=== PATIENT | female | born 1980 | race African-American/Black ===

== ENCOUNTER → 2016-12-23 | Outpatient (CLI) | payer OTHER ==
[~2016-12-23] MED LIST: APR50 PO; FERR1TAB62 PO; LABE200T24 PO; PANT40TA PO; PHS667 PO
== END | disposition home or self-care (01) ==
LOC: C.PAPS 13:19
PROVIDERS: ATTEND Physician Assistant
DX: Z01.419 Encounter for gynecological examination (general) (routine) without abnormal findings (principal)

== ENCOUNTER → 2017-02-26 | Outpatient (CLI) | payer OTHER ==
--- NOTE | 2017-02-26 14:57 | ECHOCARDIOGRAM REPORT ---
*NOTICE TO RECEIVING [employer] This information is strictly Confidential and protected under [place] law. [place] law prohibits you from making any further disclosure of this information unless further disclosure is expressly permitted by the written consent of the person to whom it pertains or is authorized by law. A general authorization for the release of medical or other information is not sufficient for this purpose. Hospital accepts no responsibility if the information is made available to any other person, INCLUDING THE PATIENT. Interpretation Summary * Name: MARIUM TREJO Study Date: 02/26/2017 01:39 PM BP: 168/90 mmHg * Patient Location: [facility] HR: 72 * : 1980 (M/d/yyyy) Gender: Female Height: 64 in * Age: 36 yrs Ethnicity: AA Weight: 240 lb * Ordering Physician: Christen Galvez * Referring Physician: Christen Galvez * Performed By: Michelle Church * * Reason For Study: MURMUR, HTN * BSA: 2.1 m2 * -- Conclusions -- * There is moderate concentric left ventricular hypertrophy. * Left ventricular systolic function is normal. * Borderline left atrial enlargement. * There is thickening of the left coronary cusp which was not seen on the study from 2012. If endocarditis is suspected, SHEILA can be considered for better characterization. * Otherwise, no change from 2013 Procedure Details * A complete two-dimensional transthoracic echocardiogram was performed (2D, M-mode, Doppler and color flow Doppler). Left Ventricle * The left ventricle is normal in size. * There is moderate concentric left ventricular hypertrophy. * Ejection Fraction = 55-60%. * Left ventricular systolic function is normal. Right Ventricle * The right ventricle is normal in size and function. Atria * Borderline left atrial enlargement. * Right atrial size is normal. Mitral Valve * The mitral valve is grossly normal. * Significant mitral regurgitation is absent. Tricuspid Valve * The tricuspid valve is not well visualized, but is grossly normal. * Significant tricuspid regurgitation is absent. Aortic Valve * The aortic valve is trileaflet. * There is thickening of the left coronary cusp which was not seen on the study from 2012. If endocarditis is suspected, SHEILA can be considered for better characterization. * No hemodynamically significant valvular aortic stenosis. * There is no significant aortic regurgitation. Pericardium/Pleural * Trace pericardial effusion. Great Vessels * Normal inferior vena cava diameter and respiratory variation suggests normal central venous pressure. MMode 2D Measurements and Calculations IVSd 2.0 cm IVSs 2.7 cm LVIDd 4.2 cm LVIDs 2.9 cm LVPWd 1.5 cm LVPWs 1.7 cm IVS/LVPW 1.4 FS 31.0 % EDV(Teich) 77.0 ml ESV(Teich) 31.4 ml EF(Teich) 59.2 % EDV(cubed) 72.2 ml ESV(cubed) 23.7 ml EF(cubed) 67.2 % % IVS thick 35.5 % % LVPW thick 17.2 % LV mass(C)d 312.2 grams LV mass(C)dI 147.7 grams/m\S\2 LV mass(C)s 307.2 grams LV mass(C)sI 145.3 grams/m\S\2 SV(Teich) 45.5 ml SI(Teich) 21.5 ml/m\S\2 SV(cubed) 48.5 ml SI(cubed) 22.9 ml/m\S\2 ACS 1.6 cm LA dimension 4.0 cm asc Aorta Diam 3.7 cm LVOT diam 2.0 cm LVOT area 3.0 cm\S\2 LVAd ap4 38.6 cm\S\2 LVLd ap4 9.6 cm EDV(MOD-sp4) 128.9 ml EDV(sp4-el) 132.4 ml LVAs ap4 20.1 cm\S\2 LVLs ap4 7.9 cm ESV(MOD-sp4) 52.2 ml ESV(sp4-el) 43.5 ml EF(MOD-sp4) 59.5 % EF(sp4-el) 67.2 % LVAd ap2 39.0 cm\S\2 LVLd ap2 9.1 cm EDV(MOD-sp2) 143.1 ml EDV(sp2-el) 142.8 ml LVAs ap2 22.5 cm\S\2 LVLs ap2 7.3 cm ESV(MOD-sp2) 63.0 ml ESV(sp2-el) 58.5 ml EF(MOD-sp2) 56.0 % EF(sp2-el) 59.0 % LVLd %diff -5.48 % EDV(MOD-bp) 139.5 ml LVLs %diff -7.85 % ESV(MOD-bp) 56.8 ml EF(MOD-bp) 59.3 % SV(MOD-sp4) 76.7 ml SI(MOD-sp4) 36.3 ml/m\S\2 SV(MOD-sp2) 80.1 ml SI(MOD-sp2) 37.9 ml/m\S\2 SV(MOD-bp) 82.7 ml SI(MOD-bp) 39.1 ml/m\S\2 SV(sp4-el) 88.9 ml SI(sp4-el) 42.1 ml/m\S\2 SV(sp2-el) 84.3 ml SI(sp2-el) 39.9 ml/m\S\2 Doppler Measurements and Calculations MV E max shira 110.8 cm/sec MV A max shira 89.4 cm/sec MV E/A 1.2 MV dec time 0.31 sec Ao V2 max 193.0 cm/sec Ao max PG 14.9 mmHg Ao max PG (full) 7.5 mmHg LILIANA(V,A) 2.1 cm\S\2 LILIANA(V,D) 2.1 cm\S\2 LV V1 max PG 7.4 mmHg LV V1 max 136.2 cm/sec PA V2 max 104.6 cm/sec PA max PG 4.4 mmHg PI end-d shira 105.9 cm/sec
== END | disposition home or self-care (01) ==
LOC: C.CPL 13:12
PROVIDERS: ATTEND Nurse Practitioner Adult Health
DX: I12.0 Hypertensive chronic kidney disease with stage 5 chronic kidney disease or end stage renal disease (principal); N18.6 End stage renal disease; R01.1 Cardiac murmur, unspecified

== ENCOUNTER → 2017-04-18 | Outpatient (CLI) | payer OTHER ==
[~2017-04-18] MED LIST changes: -FERR1TAB62 PO; +FERR325T PO
[2017-04-18 14:42] LABS: BASO % 0.4 %; BASO ABS # 0.02 K/uL (0-0.2); COMPLETE YES; EOS % 3.5 %; HEMATOCRIT 36.7 % (37-47); IG% 0.2 %; LYMPH % 32.8 %; MEAN CELL VOLUME 100.8 fL (80-100); MEAN CORPUSCULAR HGB CONC 30.8 g/dl (32-36); MEAN PLATELET VOLUME 9.2 fL (7.4-10.4); MONO % 4.9 %; NEUT % 58.2 %; PLATELET COUNT 193 K/uL (130-400); RED BLOOD COUNT 3.64 M/uL (4.2-5.4); WHITE BLOOD COUNT 5.49 K/uL (4.8-10.8)
[2017-04-18 15:27] LABS: ALB/GLOB RATIO 0.9 (0.9-2); ALKALINE PHOSPHATASE 89 U/L (45-117); ALT/SGPT 16 U/L (12-78); AST/SGOT 14 U/L (15-37); BLOOD UREA NITROGEN 35 mg/dl (7-18); BUN/CREATININE RATIO 4.5 (10-20); CALCIUM 8.1 mg/dl (8.5-10.1); CARBON DIOXIDE 27 mmol/L (21-32); CHLORIDE 102 mmol/L (98-107); CHOLESTEROL 141 mg/dl (0-200); CHOLESTEROL/HDL RATIO 2.8; GLUCOSE 107 mg/dl (70-99); HDL CHOLESTEROL 50 mg/dl; LDL CHOLESTEROL CALCULATED 68 mg/dl; POTASSIUM 3.4 mmol/L (3.5-5.1); SODIUM 139 mmol/L (136-145); THYROID STIMULATING HORMONE 0.198 uIu/ml (0.300-4.500); TRIGLYCERIDES 114 mg/dl (0-150); VERY LOW DENSITY LIPOPROT CALC 23 mg/dl
[2017-04-19 07:52] LABS: ESTIMATED AVERAGE GLUCOSE 74 mg/dl; HA1C FLAG Normal (Normal)
--- NOTE | 2017-04-24 11:55 | CODING QUERY MEDICAL NECESSITY ---
CQSUPPORTING DIAGNOSIS NEEDED A supporting diagnosis is required for the test/procedure performed on this patient in order for us to be reimbursed by the patient's insurance. Please provide a supporting diagnosis for the following test/procedure listed below next to the test name along with your signature. *If there is no additional diagnosis for this patient that would support the following test/procedure please document that below next to the test/procedure. Test(s)/Procedure(s) that require a supporting diagnosis: DOS 04/18/17 GLYCATED HEMOGLOBIN TEST Provider Signature: Date: Thank you Ch[facility] Information Management Once completed, please kindly fax back to [phone] For questions please call [phone]
== END | disposition home or self-care (01) ==
LOC: C.LAB 13:29
PROVIDERS: ATTEND Nurse Practitioner Adult Health
DX: Z00.00 Encounter for general adult medical examination without abnormal findings (principal); F41.8 Other specified anxiety disorders; N18.6 End stage renal disease; E55.9 Vitamin D deficiency, unspecified

== ENCOUNTER → 2017-05-28 | Outpatient (CLI) | payer OTHER ==
[2017-05-29 15:45] LABS: MICROSOMAL AB <1 IU/ML (<9); THYROGLOBULIN 31.3 NG/ML (2.8-40.9)
== END | disposition home or self-care (01) ==
LOC: C.LAB 12:23
PROVIDERS: ATTEND Nurse Practitioner Adult Health
DX: R94.6 Abnormal results of thyroid function studies (principal)

== ENCOUNTER 2017-06-15 10:47 | Inpatient (IN) | payer OTHER ==
[~2017-06-15] VITALS: Ht 162.6 cm; Wt 102.5 kg
[2017-06-15] MEDS ORDERED: SODIUM CHLORIDE 0.9% 500ML 500 ML IV STA (11:43)
--- NOTE | 2017-06-15 12:01 | DIAGNOSTIC IMAGING REPORT ---
CHEST ONE VIEW PORTABLE CLINICAL HISTORY: 36 years-old Female presenting with dialysis pt nausea vomiting. TECHNIQUE: Portable upright AP view of the chest was obtained. COMPARISON: 05/24/2015. FINDINGS: Cardiopericardial silhouette remains enlarged. Mild prominence of pulmonary vasculature, unchanged. Lungs and pleural spaces clear. Osseous structures normal. Upper abdomen normal. IMPRESSION: 1. Cardiomegaly and mild vascular prominence could suggest volume overload. No jose pulmonary edema. Electronically signed by: Jordan Cavanaugh M.D. 06/15/2017 12:00 PM Dictated Date/Time: 06/15/2017 11:58 AM
[2017-06-15] MEDS: ONDANSETRON INJ 2 MG/ML 2 ML VIAL IV PRN ×2 (12:17→18:56)
[2017-06-15] MEDS: MoRPHine SULFATE 10 MG/ML CARP/VIAL IV PRN ×2 (12:17→15:29)
[2017-06-15 12:30] LABS: BASO % 0.4 %; BASO ABS # 0.02 K/uL (0-0.2); COMPLETE YES; EOS % 3.1 %; HEMATOCRIT 31.2 % (37-47); IG% 0.2 %; LYMPH % 26.8 %; LYMPH ABS # 1.29 K/uL (1.2-3.4); MEAN CELL VOLUME 96.6 fL (80-100); MEAN CORPUSCULAR HEMOGLOBIN 31.9 pg (25-34); MEAN PLATELET VOLUME 8.6 fL (7.4-10.4); MONO % 4.6 %; NEUT % 64.9 %; PLATELET COUNT 198 K/uL (130-400); RED BLOOD COUNT 3.23 M/uL (4.2-5.4); WHITE BLOOD COUNT 4.81 K/uL (4.8-10.8)
[2017-06-15 12:34] LABS: PARTIAL THROMBOPLASTIN RATIO 1.1; PROTHROMBIN TIME (PATIENT) 10.9 SECONDS (9.0-12.0)
[2017-06-15 12:57] LABS: BUN/CREATININE RATIO 6.2 (10-20); CALCIUM 7.5 mg/dl (8.5-10.1); POTASSIUM 3.3 mmol/L (3.5-5.1)
--- NOTE | 2017-06-15 13:29 | EMERGENCY ROOM VISIT NOTE ---
History Report prepared by Christine: Celena Flores Under the Supervision of: Dr. Esvin Vann M.D. First contact with patient: 11:39 Chief Complaint: DIZZY Stated Complaint: WEAKNESS,DIZZY, THROWING UP Nursing Triage Summary: triage note: pt ambulatory to triage. pt reports dizziness, nausea, vomitting generalized body aches since friday. pt dialysis pt and reports she did not get her dialysis treatment yesterday "i wasn't feeling well and overslept". pt has [employer] bag with food in it upon entering triage office pt made aware to not have anything to eat or drink until provider says it is ok. History of Present Illness The patient is a 36 year old female who presents to the Emergency Room with complaints of worsening dizziness for the past couple of days. Patient overslept and missed her dialysis appointment yesterday morning. She typically receives dialysis Friday, , Friday. For the past couple of days she has been nauseated. She has been vomiting and has been unable to keep her medications down since yesterday. The patient also reports back pain, diarrhea, diffuse abdominal pain, and worsening swelling to both of her legs. She rates her pain as a 10/10 in severity. She denies any past history of C-Diff. Source of History: patient Onset: a couple of days ago Position: other (global) Symptom Intensity: 10/10 Quality: other (dizziness) Timing: worsening Associated Symptoms: + nausea, + vomiting, + abdominal pain, + diarrhea Note: Pt has bilateral swelling to extremities. Review of Systems All systems have been listed, reviewed, and are negative other than those previously mentioned. Please see Additional Medical History Sheet. Past Medical & Surgical Medical Problems: (1) Abdominal pain (2) Anemia (3) Asthma (4) End stage renal failure on dialysis (5) Obesity Surgical Problems: (1) History of section Social History Problems: (1) Tobacco use Family History Diabetes mellitus FHx: heart disease Hypertension Social History Smoking Status: Never Smoker Alcohol Use: none Drug Use: none Marital Status: single Housing Status: lives with family Occupation Status: unemployed Current/Historical Medications Scheduled Calcium Acetate (Phoslo 667 Mg), 667 MG PO TIDM Hydralazine HCl (Hydralazine HCl), 50 MG PO QID Labetalol Hcl (Labetalol Hcl), 400 MG PO BID Pantoprazole (Protonix), 40 MG PO BID Allergies Coded Allergies: No Known Allergies (Verified , 06/15/17) Physical Exam Vital Signs Date Time Temp Pulse Resp B/P (MAP) Pulse Ox O2 Delivery O2 Flow Rate FiO2 06/15/17 17:09 81 20 184/110 96 Room Air 06/15/17 15:31 84 19 180/109 95 Room Air 06/15/17 14:43 194/118 06/15/17 14:20 81 16 192/115 97 Room Air 06/15/17 12:29 78 18 195/120 96 Room Air 06/15/17 12:20 75 20 196/109 98 Room Air 06/15/17 10:55 37.3 79 18 214/120 96 Room Air Physical Exam GENERAL: Patient awake, alert, oriented x 3. Patient follows commands. Patient does not appear toxic. Patient is adequately hydrated and well- nourished. SKIN: No erythema, pallor, cyanosis or rash HEENT: Normal head, pupils equal, reactive to light and accommodation. Oral cavity and mucus membranes appear dry. Neck: Without adenopathy, no neck vein distention. LUNGS: Clear to auscultation. No wheezes, no rales, no rhonchi. HEART: No murmurs. No gallops. No rubs ABDOMEN: Obese, soft, generalized tenderness. EXTREMITIES: No signs of trauma. Fistula to right forearm. No pedal or pretibial edema. No calf or thigh tenderness. NEUROLOGIC: Cranial nerves II-XII within normal limits. No gross motor sensory function deficits. Medical Decision & Procedures ER Provider Diagnostic Interpretation: Radiology results as stated below per my review and radiologist interpretation: CHEST ONE VIEW PORTABLE CLINICAL HISTORY: 36 years-old Female presenting with dialysis pt nausea vomiting. TECHNIQUE: Portable upright AP view of the chest was obtained. COMPARISON: 05/24/2015. FINDINGS: Cardiopericardial silhouette remains enlarged. Mild prominence of pulmonary vasculature, unchanged. Lungs and pleural spaces clear. Osseous structures normal. Upper abdomen normal. IMPRESSION: 1. Cardiomegaly and mild vascular prominence could suggest volume overload. No jose pulmonary edema. Electronically signed by: Jordan Cavanaugh M.D. 06/15/2017 12:00 PM Dictated Date/Time: 06/15/2017 11:58 AM Laboratory Results 06/15/17 12:10 Red Blood Count 3.23, Mean Corpuscular Volume 96.6, Mean Corpuscular Hemoglobin 31.9, Mean Corpuscular Hemoglobin Concent 33.0, Mean Platelet Volume 8.6, Neutrophils (%) (Auto) 64.9, Lymphocytes (%) (Auto) 26.8, Monocytes (%) (Auto) 4.6, Eosinophils (%) (Auto) 3.1, Basophils (%) (Auto) 0.4, Neutrophils # (Auto) 3.12, Lymphocytes # (Auto) 1.29, Monocytes # (Auto) 0.22, Eosinophils # (Auto) 0.15, Basophils # (Auto) 0.02 06/15/17 12:10 Test 06/15/17 12:10 White Blood Count 4.81 K/uL (4.8-10.8) Red Blood Count 3.23 M/uL (4.2-5.4) Hemoglobin 10.3 g/dL (12.0-16.0) Hematocrit 31.2 % (37-47) Mean Corpuscular Volume 96.6 fL (80-100) Mean Corpuscular Hemoglobin 31.9 pg (25-34) Mean Corpuscular Hemoglobin Concent 33.0 g/dl (32-36) Platelet Count 198 K/uL (130-400) Mean Platelet Volume 8.6 fL (7.4-10.4) Neutrophils (%) (Auto) 64.9 % Lymphocytes (%) (Auto) 26.8 % Monocytes (%) (Auto) 4.6 % Eosinophils (%) (Auto) 3.1 % Basophils (%) (Auto) 0.4 % Neutrophils # (Auto) 3.12 K/uL (1.4-6.5) Lymphocytes # (Auto) 1.29 K/uL (1.2-3.4) Monocytes # (Auto) 0.22 K/uL (0.11-0.59) Eosinophils # (Auto) 0.15 K/uL (0-0.5) Basophils # (Auto) 0.02 K/uL (0-0.2) RDW Standard Deviation 61.3 fL (36.4-46.3) RDW Coefficient of Variation 17.2 % (11.5-14.5) Immature Granulocyte % (Auto) 0.2 % Immature Granulocyte # (Auto) 0.01 K/uL (0.00-0.02) Prothrombin Time 10.9 SECONDS (9.0-12.0) Prothromb Time International Ratio 1.0 (0.9-1.1) Activated Partial Thromboplast Time 29.4 SECONDS (21.0-31.0) Partial Thromboplastin Ratio 1.1 Anion Gap 18.0 mmol/L (3-11) Est Creatinine Clear Calc Drug Dose 6.6 ml/min Estimated GFR () 3.4 Estimated GFR (Non- 3.0 BUN/Creatinine Ratio 6.2 (10-20) Calcium Level 7.5 mg/dl (8.5-10.1) Total Bilirubin 0.3 mg/dl (0.2-1) Aspartate Amino Transf (AST/SGOT) 17 U/L (15-37) Alanine Aminotransferase (ALT/SGPT) 15 U/L (12-78) Alkaline Phosphatase 103 U/L (45-117) Total Protein 6.9 gm/dl (6.4-8.2) Albumin 3.5 gm/dl (3.4-5.0) Globulin 3.4 gm/dl (2.5-4.0) Albumin/Globulin Ratio 1.0 (0.9-2) Laboratory results as stated above per my review. Medications Administered Medications (Trade) Dose Ordered Sig/[place] Route Start Time Stop Time Status Last Admin Dose Admin Ondansetron HCl (Zofran Inj) 4 mg Q1HWA PRN IV 06/15/17 11:45 07/15/17 11:44 06/15/17 12:17 4 MG Morphine Sulfate (MoRPHine SULFATE INJ) 6 mg Q1H PRN IV 06/15/17 11:45 06/29/17 11:44 06/15/17 15:29 6 MG Sodium Chloride 500 ml @ 250 mls/hr Q2H STAT IV 06/15/17 11:43 06/15/17 13:42 DC 06/15/17 11:43 250 MLS/HR Hydralazine HCl (HydrALAZINE INJ) 20 mg NOW STAT IV. 06/15/17 14:12 06/15/17 14:13 DC 06/15/17 14:44 20 MG Promethazine HCl 12.5 mg/Sodium Chloride 50.5 ml @ 204 mls/hr NOW STAT IV 06/15/17 15:09 06/15/17 15:23 DC 06/15/17 15:30 204 MLS/HR ECG Indication: nausea Rate (beats per minute): 77 Rhythm: normal sinus Findings: 1st degree AV block, no acute ischemic change, no ectopy, other (LVH) ED Course 1139: Past medical records reviewed. The patient was evaluated in room C5. A complete history and physical examination was performed. 1143: Sodium Chloride 500 ml @ 250 mls/hr IV. 1145: Morphine Sulfate 6 mg IV - PRN, Zofran 4 mg IV - PRN. 1206: I reassessed the patient and she was still sleeping. 1259: I spoke with Dr. Minor of nephrology. We discussed the patient's case. She recommended keeping the patient in the hospital for further treatment. 1412: Hydralazine HCl 20 mg IV. 1507: I reassessed the patient. I ordered more medications. Her blood pressure has improved. 1509: Promethazine HCl 12.5 mg/Sodium Chloride 50.5 ml @ 204 mls/hr IV. 1603: I reassessed the patient. She is still feeling nauseated and uncomfortable. I discussed the result and treatment plan with the patient. I answered all of her questions. She expressed understanding and verbalized agreement. 1622: Discussed the patient's case with Dr. Sarah. The patient will be evaluated by the [facility] for further management. Medical Decision Nurses notes reviewed. Medical history sheet reviewed. Differential diagnosis includes but is not limited to: metabolic disorder, dehydration, nausea, vomiting, C-Diff. Medication Reconciliation: I attest that I have personally reviewed the patient' s current medication list. Blood Pressure Screening: Patient was found to have an elevated blood pressure and will be followed by the hospitalist. The patient is here with nausea vomiting and diarrhea. She missed her dialysis appointment yesterday. She has mild congestive failure noted on x-ray. Despite trials of different anti-emetics the patient remained very nauseous. The patient was given some IV fluid but there was concern about giving her too much resulting in pulmonary edema. The patient's blood pressure remained high and she is given IV hydralazine. That did result in some decrease in her blood pressure. In light of her persistent symptoms despite medications and her underlying renal failure/hypertension I believe that she will require further evaluation/ treatment in the hospital. I discussed care with the patient and with the hospitalist. Consults Time Called: [phone] Consulting Physician: Dr. Minor Returned Call: [phone] Minor of nephrology. We discussed the patient's case. She recommended keeping the patient in the hospital for further treatment. Additional Consults: Time Called: 1620 Consulted Physician: Dr. Sarah Returned Call: [phone] Additional Comments: Discussed the patient's case with Dr. Sarah. The patient will be evaluated by the [facility] for further management. Impression Primary Impression: Nausea vomiting and diarrhea Additional Impressions: CHF (congestive heart failure) Renal failure HTN (hypertension) Scribe Attestation The scribe's documentation has been prepared under my direction and personally reviewed by me in its entirety. I confirm that the note above accurately reflects all work, treatment, procedures, and medical decision making performed by me. Departure Information Dispostion Being Evaluated By Hospitalist Referrals No Doctor, Assigned (PCP) Patient Instructions My [facility] Problem Qualifiers Additional Impressions: CHF (congestive heart failure) Congestive heart failure type: unspecified congestive heart failure type Congestive heart failure chronicity: unspecified congestive heart failure chronicity Qualified Codes: I50.9 - Heart failure, unspecified
[2017-06-15] MEDS ORDERED: HydrALAZINE HCL 20 MG/ML VIAL IV. STA ×3 (14:10→19:21)
[2017-06-15] MEDS ORDERED: PROMETHAZINE HCL INJ 12.5 MG in SODIUM CHLORIDE 0.9% 50ML 50 ML IV STA (15:09)
[2017-06-15] MEDS ORDERED: ACETAMINOPHEN 325 MG TAB PO PRN (16:45)
[2017-06-15] MEDS ORDERED: MAGNESIUM HYDROXIDE SUSP 30 ML UDC PO PRN (16:45)
--- NOTE | 2017-06-15 16:57 | History and Physical ---
History & Physical Date & Time of Service: Jun 15, 2017 at 16:50 Chief Complaint: Weakness,Dizzy, Throwing Up Primary Care Physician: Christen Galvez C.R.N.P. History of Present Illness Source: patient 36 y/o F c/o abd pain, n/v. Pt states she started having sx on Friday and has not been able to keep anything down, including her medications since that time. She missed her HD appt yesterday due to not feeling well and oversleeping. She also has diarrhea. She has some RAMSAY at times, but has not been ambulating much. Pt denies fever, chest pain, LE pain or swelling. She has been given zofran and phenergan in the ED and nothing is helping. She denies hx of similar sx. No one around her is ill. Past Medical/Surgical History Medical Problems: (1) Abdominal pain Status: Resolved (2) Anemia Status: Chronic (3) Asthma Status: Chronic (4) End stage renal failure on dialysis Status: Chronic Surgical Problems: (1) History of section Status: Resolved HTN GERD Family History Family history was reviewed; no changes noted. Social History Smoking Status: Never Smoker Alcohol Use: none Drug Use: none Marital Status: single Occupational Status: unemployed Immunizations History of Influenza Vaccine: Yes Influenza Vaccine Date: Aug 31, 2013 History of Tetanus Vaccine?: utd History of Pneumococcal: No History of Hepatitis B Vaccine: No Multi-Drug Resistant Organisms History of MDRO: No Allergies Coded Allergies: No Known Allergies (Verified , 06/15/17) Home Medications Scheduled Calcium Acetate (Phoslo 667 Mg), 667 MG PO TIDM Hydralazine HCl (Hydralazine HCl), 50 MG PO QID Labetalol Hcl (Labetalol Hcl), 400 MG PO BID Pantoprazole (Protonix), 40 MG PO BID Review of Systems Pertinent positives and negatives reviewed in HPI--all others negative Physical Exam Vital Signs Date Time Temp Pulse Resp B/P (MAP) Pulse Ox O2 Delivery O2 Flow Rate FiO2 06/15/17 15:31 84 19 180/109 95 Room Air 06/15/17 14:43 194/118 06/15/17 14:20 81 16 192/115 97 Room Air 06/15/17 12:29 78 18 195/120 96 Room Air 06/15/17 12:20 75 20 196/109 98 Room Air 06/15/17 10:55 37.3 79 18 214/120 96 Room Air General Appearance: + mild distress (ill appearing, moaning), + obese Head: normocephalic, atraumatic Eyes: normal inspection, EOMI ENT: hearing grossly normal Neck: supple Respiratory/Chest: normal breath sounds, no respiratory distress Cardiovascular: regular rate, rhythm, no edema Abdomen/GI: soft, + tenderness (across entire upper abd) Extremities/Musculoskelatal: no calf tenderness, no pedal edema Neurologic/Psych: alert, oriented x 3 Skin: normal color, warm/dry Diagnostics Laboratory Results Results Past 24 Hours Test 06/15/17 12:10 Range/Units White Blood Count 4.81 4.8-10.8 K/uL Red Blood Count 3.23 4.2-5.4 M/uL Hemoglobin 10.3 12.0-16.0 g/dL Hematocrit 31.2 37-47 % Mean Corpuscular Volume 96.6 80-100 fL Mean Corpuscular Hemoglobin 31.9 25-34 pg Mean Corpuscular Hemoglobin Concent 33.0 32-36 g/dl Platelet Count 198 130-400 K/uL Mean Platelet Volume 8.6 7.4-10.4 fL Neutrophils (%) (Auto) 64.9 % Lymphocytes (%) (Auto) 26.8 % Monocytes (%) (Auto) 4.6 % Eosinophils (%) (Auto) 3.1 % Basophils (%) (Auto) 0.4 % Neutrophils # (Auto) 3.12 1.4-6.5 K/uL Lymphocytes # (Auto) 1.29 1.2-3.4 K/uL Monocytes # (Auto) 0.22 0.11-0.59 K/uL Eosinophils # (Auto) 0.15 0-0.5 K/uL Basophils # (Auto) 0.02 0-0.2 K/uL RDW Standard Deviation 61.3 36.4-46.3 fL RDW Coefficient of Variation 17.2 11.5-14.5 % Immature Granulocyte % (Auto) 0.2 % Immature Granulocyte # (Auto) 0.01 0.00-0.02 K/uL Prothrombin Time 10.9 9.0-12.0 SECONDS Prothromb Time International Ratio 1.0 0.9-1.1 Activated Partial Thromboplast Time 29.4 21.0-31.0 SECONDS Partial Thromboplastin Ratio 1.1 Sodium Level 135 136-145 mmol/L Potassium Level 3.3 3.5-5.1 mmol/L Chloride Level 102 98-107 mmol/L Carbon Dioxide Level 16 21-32 mmol/L Anion Gap 18.0 3-11 mmol/L Blood Urea Nitrogen 86 7-18 mg/dl Creatinine 14.00 0.60-1.20 mg/dl Est Creatinine Clear Calc Drug Dose 6.6 ml/min Estimated GFR () 3.4 Estimated GFR (Non- 3.0 BUN/Creatinine Ratio 6.2 10-20 Random Glucose 90 70-99 mg/dl Calcium Level 7.5 8.5-10.1 mg/dl Total Bilirubin 0.3 0.2-1 mg/dl Aspartate Amino Transf (AST/SGOT) 17 15-37 U/L Alanine Aminotransferase (ALT/SGPT) 15 12-78 U/L Alkaline Phosphatase 103 45-117 U/L Total Protein 6.9 6.4-8.2 gm/dl Albumin 3.5 3.4-5.0 gm/dl Globulin 3.4 2.5-4.0 gm/dl Albumin/Globulin Ratio 1.0 0.9-2 Diagnostic Radiology CXR: with question of overload but no jose edema Impression Assessment and Plan 36 y/o F who was admitted on 06/15 with abd pain, n/v Abd pain, n/v: Seems likely viral illness given sx WBC WNL, afebrile Given 500cc IVF in the ED, will hold on further for now as pt is anuric 2/2 renal disease ESRD: pt missed HD yesterday due to above ED spoke with Dr. Minor who will see pt tomorrow Usual HD is // Cr 14.0 ? Fluid overload: cannot given lasix due to anuria Monitor for now HypoK: Will leave to discretion of renal given ESRD status HTN: labile in the setting of pain and missed medications Monitor for now given risk of hypoTN but difficulties in maintaining fluid status given ESRD Other: Full code SCDs for DVT proph Clears as tolerated Level of Care Med/Surg Resuscitation Status FULL RESUSCITATION VTE Prophylaxis VTE Risk Assessment Done? Y/N: Yes Risk Level: Low
[2017-06-15] MEDS ORDERED: PROMETHAZINE HCL INJ 25 MG in SODIUM CHLORIDE 0.9% 50ML 50 ML IV PRN (17:00)
[2017-06-15] MEDS ORDERED: ONDANSETRON 8 MG/54 ML D5W IV PRN (17:00)
[2017-06-15] MEDS ORDERED: ONDANSETRON INJ 8 MG in DEXTROSE 5% 50ML 50 ML IV PRN (18:00)
[2017-06-15] MEDS: MoRPHine SULFATE 2 MG/ML CARP IV PRN (18:56)
[2017-06-15] MEDS ORDERED: NURSING VERBAL MED ORDER ONE (19:15)
[2017-06-15] MEDS: CALCIUM ACETATE 667MG GELCAP PO SCH (19:38)
[2017-06-15 20:13] VITALS: BP 180/103; PULSE 80; TEMP 36.5; O2SAT 97; Ht 162.6 cm; Wt 102.5 kg
[2017-06-15] MEDS: PANTOprazole SOD 40 MG TAB PO SCH (20:43)
[2017-06-15] MEDS ORDERED: LABETALOL HCL 200 MG TAB PO SCH (21:00)
[2017-06-15] MEDS ORDERED: PNEUMOCOCCAL POLYSACCHARIDES 25 MCG/0.5 ML VIAL/SYR IM. ONE (21:15)
[2017-06-15] MEDS ORDERED: INFLUENZA VIRUS QUAD VACCINE 0.5 ML SYR IM. ONE (21:15)
[2017-06-15] MEDS ORDERED: PNEUMOCOCCAL ADMINISTRATION CHARGE ONE (21:15)
[2017-06-15] MEDS ORDERED: INFLUENZA ADMINISTRATION CHARGE ONE (21:15)
[2017-06-15] MEDS ORDERED: LABETALOL HCL 200 MG TAB PO ONE (21:40)
[2017-06-16] VITALS (24 sets, daily range): BP systolic 147–197; BP diastolic 90–118; PULSE 76–87; TEMP 36.6–37; O2SAT 94–97
[2017-06-16] MEDS ORDERED: ACETAMINOPHEN IV 100 ML IV PRN (06:00)
[2017-06-16 07:17] LABS: BUN/CREATININE RATIO 5.8 (10-20); CALCIUM 7.6 mg/dl (8.5-10.1); POTASSIUM 3.2 mmol/L (3.5-5.1)
[2017-06-16] MEDS ORDERED: HydrALAZINE HCL 20 MG/ML VIAL IV. PRN (07:45)
[2017-06-16] MEDS: PANTOprazole SOD 40 MG TAB PO SCH ×2 (07:58→20:52)
[2017-06-16] MEDS: CALCIUM ACETATE 667MG GELCAP PO SCH ×3 (07:58→16:58)
[2017-06-16] MEDS: LABETALOL HCL 200 MG TAB PO SCH ×2 (07:59→20:53)
[2017-06-16] MEDS: ONDANSETRON INJ 2 MG/ML 2 ML VIAL IV PRN ×2 (08:12→16:57)
[2017-06-16] MEDS ORDERED: COUGH DROP (SUGAR FREE) LOZ 24 LOZ/1 BOX ONE (08:20)
--- NOTE | 2017-06-16 11:17 | Progress Note ---
Subjective Date of Service: Jun 16, 2017. Subjective Pt evaluation today including: conversation w/ patient, physical exam, chart review, lab review, review of studies, review of inpatient medication list Patient was seen in dialysis, comfortable, in bed, no more nausea vomiting, Report epigastric pain from vomiting, is not apparent, Has tolerated some clear liquid Has no bowel movement since admission, some sore throat , but no fever no chills , Problem List Medical Problems: (1) CHF (congestive heart failure) Status: Acute (2) Creatinine elevation Status: Acute (3) Elevated bilirubin Status: Acute (4) Epigastric abdominal pain Status: Acute (5) Fever Status: Acute (6) HTN (hypertension) Status: Acute (7) Nausea vomiting and diarrhea Status: Acute (8) Renal failure Status: Acute Review of Systems Constitutional: + fatigue, No fever, No chills, No sweats, No weight loss, No weakness, No problem reported Eyes: No worsening of vision, No eye pain, No redness, No discharge, No diplopia ENT: No hearing loss, No unusual epistaxis, No nasal symptoms, No sore throat, No tinnitus, No dental problems, No trouble swallowing Respiratory: No cough, No sputum, No wheezing, No shortness of breath, No dyspnea on exertion, No dyspnea at rest, No hemoptysis Cardiac: No chest pain, No orthopnea, No PND, No edema, No claudication, No palpitations Abdomen: + see HPI, + pain (mild epigastric area, report from vomiting), No nausea, No vomiting, No diarrhea, No constipation Musculoskeletal: No joint pain, No muscle pain, No swelling, No calf pain Female : No dysuria, No urinary frequency, No hematuria, No incontinence, No abnormal vaginal bleeding, No vaginal discharge Neurologic: No memory loss, No paralysis, No weakness, No numbness/tingling, No vertigo, No balance problems Psychiatric: No depression symptoms, No anhedonism, No anxiety, No insomnia, No substance abuse Heme: No abnormal bleeding/bruising, No clotting problems, No swollen lymph nodes, No night sweats Endo: No fatigue, No excessive thirst, No excessive urination Skin: No rash, No itch, No new/changing skin lesions, No color change, No bleeding Objective Vital Signs Date Time Temp Pulse Resp B/P (MAP) Pulse Ox O2 Delivery O2 Flow Rate FiO2 06/16/17 09:45 79 154/109 06/16/17 09:30 78 157/99 06/16/17 09:15 80 157/90 06/16/17 09:08 80 163/97 06/16/17 09:00 37.0 80 148/94 (112) 06/16/17 08:00 96 Room Air 06/16/17 07:18 36.6 82 20 197/118 (144) 96 06/16/17 00:16 36.6 87 18 178/99 (125) 94 Room Air 06/16/17 00:00 97 Room Air 06/15/17 20:13 36.5 80 18 180/103 97 Room Air 06/15/17 18:21 83 16 182/106 98 Room Air 06/15/17 17:09 81 20 184/110 96 Room Air 06/15/17 15:31 84 19 180/109 95 Room Air 06/15/17 14:43 194/118 06/15/17 14:20 81 16 192/115 97 Room Air 06/15/17 12:29 78 18 195/120 96 Room Air 06/15/17 12:20 75 20 196/109 98 Room Air Physical Exam General Appearance: WD/WN, no apparent distress, + obese, + pertinent finding ( looks tired) Eyes: normal inspection, PERRL, EOMI, sclerae normal ENT: normal ENT inspection, hearing grossly normal, pharynx normal Neck: supple, no adenopathy, thyroid normal, no JVD, no carotid bruits, trachea midline Respiratory/Chest: chest non-tender, lungs clear, normal breath sounds, no respiratory distress, no accessory muscle use Cardiovascular: regular rate, rhythm, no edema, no gallop, no JVD, no murmur Abdomen: normal bowel sounds, non tender, soft, no organomegaly, no pulsatile mass Extremities: normal range of motion, non-tender, normal inspection, no pedal edema, no calf tenderness, normal capillary refill, pelvis stable Neurologic/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, no motor/sensory deficits, alert, normal mood/affect, oriented x 3 Skin: normal color, warm/dry, no rash Laboratory Results Last 24 Hours Test 06/15/17 12:10 06/16/17 05:20 06/16/17 11:01 White Blood Count 4.81 K/uL Red Blood Count 3.23 M/uL Hemoglobin 10.3 g/dL Hematocrit 31.2 % Mean Corpuscular Volume 96.6 fL Mean Corpuscular Hemoglobin 31.9 pg Mean Corpuscular Hemoglobin Concent 33.0 g/dl Platelet Count 198 K/uL Mean Platelet Volume 8.6 fL Neutrophils (%) (Auto) 64.9 % Lymphocytes (%) (Auto) 26.8 % Monocytes (%) (Auto) 4.6 % Eosinophils (%) (Auto) 3.1 % Basophils (%) (Auto) 0.4 % Neutrophils # (Auto) 3.12 K/uL Lymphocytes # (Auto) 1.29 K/uL Monocytes # (Auto) 0.22 K/uL Eosinophils # (Auto) 0.15 K/uL Basophils # (Auto) 0.02 K/uL RDW Standard Deviation 61.3 fL RDW Coefficient of Variation 17.2 % Immature Granulocyte % (Auto) 0.2 % Immature Granulocyte # (Auto) 0.01 K/uL Prothrombin Time 10.9 SECONDS Prothromb Time International Ratio 1.0 Activated Partial Thromboplast Time 29.4 SECONDS Partial Thromboplastin Ratio 1.1 Sodium Level 135 mmol/L 136 mmol/L Potassium Level 3.3 mmol/L 3.2 mmol/L Chloride Level 102 mmol/L 101 mmol/L Carbon Dioxide Level 16 mmol/L 13 mmol/L Anion Gap 18.0 mmol/L 22.0 mmol/L Blood Urea Nitrogen 86 mg/dl 87 mg/dl Creatinine 14.00 mg/dl 15.00 mg/dl Est Creatinine Clear Calc Drug Dose 6.6 ml/min 6.2 ml/min Estimated GFR () 3.4 3.2 Estimated GFR (Non- 3.0 2.7 BUN/Creatinine Ratio 6.2 5.8 Random Glucose 90 mg/dl 84 mg/dl Calcium Level 7.5 mg/dl 7.6 mg/dl Total Bilirubin 0.3 mg/dl Aspartate Amino Transf (AST/SGOT) 17 U/L Alanine Aminotransferase (ALT/SGPT) 15 U/L Alkaline Phosphatase 103 U/L Total Protein 6.9 gm/dl Albumin 3.5 gm/dl Globulin 3.4 gm/dl Albumin/Globulin Ratio 1.0 Assessment and Plan 36 y/o F who was admitted on 06/15 with abd pain, n/v, possible gastritis, improving Possible virus gastritis asso with abd pain, n/v, no more nausea vomiting, will continue clear liquid diet, advance as tolerated No leukocytosis, no more fever Abdominal pain, she reported from possible vomiting, no more abdominal pain, abdominal exam is soft, will continue watch ESRD: Continue dialysis today Hypokinemia replaced Accelerated hypertension : Restart home medication such as hydralazine 50 mg by mouth 4 times a day, Advanced diet, although bed and walk, prepare going home tomorrow Morbid obesity with BMI 41, Other: Full code SCDs for DVT proph Continued [facility] stay due to: multiple IV medications needed Discharge planning: home
--- NOTE | 2017-06-16 12:32 | Nephrology Consultation ---
Nephrology Consultation Date & Providers Date of Consultation: Jun 16, 2017. Primary Care Provider: Christen Galvez C.R.N.P. Referring Provider: Reason for Consultation Evaluation management for end-stage renal disease on hemodialysis. History of Present Illness Astrid is a 34-year-old young female with past medical history significant for poorly-controlled hypertension, end-stage renal disease secondary to hypertensive nephrosclerosis, obesity and asthma admitted to the hospital with an episode of possible gastroenteritis. Nephrologic consult was requested for management of hemodialysis while in the hospital. Electronic medical records including labs and imaging personally reviewed. She has been feeling poorly over last few days with nausea, vomiting and diarrhea. Did not have any fever or chills. She was given Zofran in the ED without much improvement in her symptom and she was admitted for further evaluation. She continues to have some nausea and vomited once last night. Did not have any diarrhea since admission. She is currently complaining of some sore throat. She denied any chest pain or shortness of breath. On admission her systolic blood pressure was more than 200 which slightly improved with IV hydralazine but blood pressure still staying around the 180s to 190s. Denied any headache or visual changes. Her blood pressure usually runs high and her inter dialytic weight gain around 5-6 kg. Astrid has end-stage renal disease secondary to hypertensive nephropathy currently she gets dialysis via right radiocephalic AV fistula ( placed in August 30, 2013) at [facility] on Friday, , Friday. She has history of poorly-controlled hypertension and high the interdialytic weight gain due to dietary noncompliance. She missed dialysis last Friday as she was not feeling well and was having nausea, vomiting and diarrhea. Allergies Coded Allergies: No Known Allergies (Verified , 06/15/17) Inpatient Medications Current Inpatient Medications Medications (Trade) Dose Ordered Sig/[place] Route Start Time Stop Time Status Last Admin Dose Admin Acetaminophen (Tylenol Tab) 650 mg Q4H PRN PO 06/15/17 16:45 07/15/17 16:44 Magnesium Hydroxide (Milk Of Magnesia Susp) 30 ml Q6H PRN PO 06/15/17 16:45 07/15/17 16:44 Ondansetron HCl (Zofran Inj) 4 mg Q6H PRN IV 06/15/17 16:45 07/15/17 16:44 06/16/17 08:12 4 MG Calcium Acetate (Phoslo Cap) 667 mg TIDM PO 06/15/17 18:00 07/15/17 17:59 06/16/17 07:58 667 MG Pantoprazole Sodium (Protonix Tab) 40 mg BID PO 06/15/17 21:00 07/15/17 20:59 06/16/17 07:58 40 MG Morphine Sulfate (MoRPHine SULFATE INJ) 1 mg Q6H PRN IV 06/15/17 17:00 06/29/17 16:59 06/15/17 18:56 1 MG Promethazine HCl 25 mg/Sodium Chloride 51 ml @ 204 mls/hr Q6H PRN IV 06/15/17 17:00 07/15/17 16:59 06/15/17 23:57 204 MLS/HR Ondansetron HCl 8 mg/Dextrose 54 ml @ 200 mls/hr Q4H PRN IV 06/15/17 18:00 07/15/17 17:59 Labetalol HCl (Normodyne Tab) 400 mg BID PO 06/16/17 09:00 07/16/17 08:59 Acetaminophen 100 ml @ 400 mls/hr Q8H PRN IV 06/16/17 06:00 07/16/17 05:59 06/16/17 06:31 400 MLS/HR Hydralazine HCl (HydrALAZINE INJ) 20 mg Q8 PRN IV. 06/16/17 07:45 07/16/17 07:44 06/16/17 07:57 20 MG Hydralazine HCl (Apresoline Tab) 50 mg Q6 PO 06/16/17 12:00 07/16/17 13:59 Family History Diabetes mellitus FHx: heart disease Hypertension Social History Smoking Status: Former Smoker Alcohol Use: none Drug Use: none Marital Status: single Occupation: unemployed Review of Systems A complete review of systems was performed. Pertinent positives are noted above. All other systems are negative. Physical Exam Date Time Temp Pulse Resp B/P (MAP) Pulse Ox O2 Delivery O2 Flow Rate FiO2 06/16/17 11:45 79 157/97 06/16/17 11:30 80 152/96 06/16/17 11:15 80 149/94 06/16/17 11:00 79 160/100 06/16/17 10:45 80 155/103 06/16/17 10:30 78 157/97 06/16/17 10:15 79 150/102 06/16/17 10:00 78 147/93 06/16/17 09:45 79 154/109 06/16/17 09:30 78 157/99 06/16/17 09:15 80 157/90 06/16/17 09:08 80 163/97 06/16/17 09:00 37.0 80 148/94 (112) 06/16/17 08:00 96 Room Air 06/16/17 07:18 36.6 82 20 197/118 (144) 96 06/16/17 00:16 36.6 87 18 178/99 (125) 94 Room Air 06/16/17 00:00 97 Room Air 06/15/17 20:13 36.5 80 18 180/103 97 Room Air 06/15/17 18:21 83 16 182/106 98 Room Air 06/15/17 17:09 81 20 184/110 96 Room Air 06/15/17 15:31 84 19 180/109 95 Room Air 06/15/17 14:43 194/118 06/15/17 14:20 81 16 192/115 97 Room Air 06/15/17 12:29 78 18 195/120 96 Room Air GENERAL: young female, AAA x 3, pleasant, healthy-appearing, not in any distress. HEENT: Atraumatic, normocephalic. NECK: Supple, no JVD, no carotid bruit appreciated. ENT: No sinus tenderness MOUTH and THROAT: Moist oral mucosa, no oral ulcer or pharyngeal erythema RESPIRATORY: Normal breathing efforts, no accessory muscle use, clear to auscultation bilaterally, no wheezes or rales. CARDIOVASCULAR: S1, S2 normal, rate rhythm regular. ABDOMEN: Soft, nontender, positive bowel sound. MUSCULOSKELETAL: No CVA tenderness. No joint swelling, erythema or tenderness. Normal range of motion. SKIN: No skin rash EXTREMITY: trace b/l lower extremity edema NEURO: No gross focal neurological deficit, speech fluent. PSYCHIATRY: Normal mood and judgment Laboratory Results Last 24 Hours Test 06/16/17 05:20 Sodium Level 136 mmol/L Potassium Level 3.2 mmol/L Chloride Level 101 mmol/L Carbon Dioxide Level 13 mmol/L Anion Gap 22.0 mmol/L Blood Urea Nitrogen 87 mg/dl Creatinine 15.00 mg/dl Est Creatinine Clear Calc Drug Dose 6.2 ml/min Estimated GFR () 3.2 Estimated GFR (Non- 2.7 BUN/Creatinine Ratio 5.8 Random Glucose 84 mg/dl Calcium Level 7.6 mg/dl Magnesium Level 2.3 mg/dl Impression 36 y old female with history of end-stage renal disease secondary to hypertensive nephrosclerosis,on hemodialysis Friday, , Friday via right radiocephalic AV fistula at [place] dialysis unit. Admitted with episode of gastroenteritis. She has history of high weight gain and poorly- controlled HTN to dietary noncompliance. She missed dialysis Friday as she was feeling poorly, currently blood pressure running high and she is clearly volume overloaded although respiratory status seems stable. Electrolyte acceptable. Recommendations --plan for urgent hemodialysis this morning, aim for 4 liters UF, will run with 4 K bath -avoid any further IV fluid --keep her on scheduled for dialysis tomorrow as a regular schedule --continued Nephrocaps and renal diet --dose medications for GFR less than 10 --continue on current antihypertensive medications and low-salt diet. --would continue on MARIO with dialysis. --continue on phosphate binders with meals. Thank you for allowing me to participate in your patient's care. It was a pleasure to see Astrid.
--- NOTE | 2017-06-16 13:54 | Dialysis Progress Note ---
Hemodialysis Note Date of Service Jun 16, 2017. Chief Complaint F/U for end-stage renal disease on hemodialysis. Subjective Astrid was seen and examined during HD treatment. Has been tolerating HD well, BP slightly improved. Review of Systems A complete review of systems was performed. Pertinent positives are noted above. All other systems are negative. Vital Signs Last 8 Hrs Date Time Temp Pulse Resp B/P (MAP) Pulse Ox O2 Delivery O2 Flow Rate FiO2 06/16/17 12:45 81 150/97 06/16/17 12:30 76 156/100 06/16/17 12:15 82 156/101 06/16/17 12:00 80 147/96 06/16/17 11:45 79 157/97 06/16/17 11:30 80 152/96 06/16/17 11:15 80 149/94 06/16/17 11:00 79 160/100 06/16/17 10:45 80 155/103 06/16/17 10:30 78 157/97 06/16/17 10:15 79 150/102 06/16/17 10:00 78 147/93 06/16/17 09:45 79 154/109 06/16/17 09:30 78 157/99 06/16/17 09:15 80 157/90 06/16/17 09:08 80 163/97 06/16/17 09:00 37.0 80 148/94 (112) 06/16/17 08:00 96 Room Air 06/16/17 07:18 36.6 82 20 197/118 (144) 96 Last Recorded Weight Weight (Kilograms): 109.200 Physical Exam General Appearance: no apparent distress Neck: supple Respiratory/Chest: lungs clear Cardiovascular: regular rate, rhythm Extremities/Musculoskelatal: + pertinent finding (trace b/l LE edema) Neurologic/Psych: no motor/sensory deficits, + pertinent finding (speech fluent ) Social History Smoking Status: Former smoker Alcohol Use: none Drug Use: none Marital Status: single Occupation: unemployed Laboratory Results Past 24 Hours 06/16/17 05:20 Test 06/16/17 05:20 Anion Gap 22.0 mmol/L (3-11) Est Creatinine Clear Calc Drug Dose 6.2 ml/min Estimated GFR () 3.2 Estimated GFR (Non- 2.7 BUN/Creatinine Ratio 5.8 (10-20) Calcium Level 7.6 mg/dl (8.5-10.1) Magnesium Level 2.3 mg/dl (1.8-2.4) Allergies Coded Allergies: No Known Allergies (Verified , 06/15/17) Medications Current Inpatient Medications Medications (Trade) Dose Ordered Sig/[place] Route Start Time Stop Time Status Last Admin Dose Admin Acetaminophen (Tylenol Tab) 650 mg Q4H PRN PO 06/15/17 16:45 07/15/17 16:44 Magnesium Hydroxide (Milk Of Magnesia Susp) 30 ml Q6H PRN PO 06/15/17 16:45 07/15/17 16:44 Ondansetron HCl (Zofran Inj) 4 mg Q6H PRN IV 06/15/17 16:45 07/15/17 16:44 06/16/17 08:12 4 MG Calcium Acetate (Phoslo Cap) 667 mg TIDM PO 06/15/17 18:00 07/15/17 17:59 06/16/17 12:44 667 MG Pantoprazole Sodium (Protonix Tab) 40 mg BID PO 06/15/17 21:00 07/15/17 20:59 06/16/17 07:58 40 MG Morphine Sulfate (MoRPHine SULFATE INJ) 1 mg Q6H PRN IV 06/15/17 17:00 06/29/17 16:59 06/15/17 18:56 1 MG Promethazine HCl 25 mg/Sodium Chloride 51 ml @ 204 mls/hr Q6H PRN IV 06/15/17 17:00 07/15/17 16:59 06/15/17 23:57 204 MLS/HR Ondansetron HCl 8 mg/Dextrose 54 ml @ 200 mls/hr Q4H PRN IV 06/15/17 18:00 07/15/17 17:59 Labetalol HCl (Normodyne Tab) 400 mg BID PO 06/16/17 09:00 07/16/17 08:59 Acetaminophen 100 ml @ 400 mls/hr Q8H PRN IV 06/16/17 06:00 07/16/17 05:59 06/16/17 06:31 400 MLS/HR Hydralazine HCl (HydrALAZINE INJ) 20 mg Q8 PRN IV. 06/16/17 07:45 07/16/17 07:44 10/9/17 07:57 20 MG Hydralazine HCl (Apresoline Tab) 50 mg Q6 PO 06/16/17 12:00 07/16/17 13:59 06/16/17 12:44 50 MG Impression 36 y old female with history of end-stage renal disease secondary to hypertensive nephrosclerosis,on hemodialysis Friday, , Friday via right radiocephalic AV fistula at [facility]. Admitted with episode of gastroenteritis. She has history of high weight gain and poorly- controlled HTN to dietary noncompliance. She missed dialysis Friday as she was feeling poorly, currently blood pressure running high and she is clearly volume overloaded although respiratory status seems stable. Electrolyte acceptable. Recommendations --getting hemodialysis, tolerating well, aim for 4 liters UF --keep her on scheduled for dialysis tomorrow as a regular schedule --continued Nephrocaps and renal diet --dose medications for GFR less than 10 --continue on current antihypertensive medications and low-salt diet. -- MARIO with dialysis today. --continue on phosphate binders with meals. Will be available during treatment for any question/concern.
[2017-06-16] MEDS: HYDROCODONE/ACETAMOPHEN 5/325MG TAB PO PRN (16:58)
--- NOTE | 2017-06-16 21:53 | DIAGNOSTIC IMAGING REPORT ---
ABDOMEN AND PELVIS CT WITH ORAL CONTRAST CT DOSE: 1234.01 mGy.cm HISTORY: Generalized abdominal pain TECHNIQUE: Multiaxial CT images of the abdomen and pelvis were performed following the use of oral contrast. A dose lowering technique was utilized adhering to the principles of ALARA. COMPARISON STUDY: Abdomen and pelvis CT 03/24/2016. FINDINGS: The lung bases are clear. No pneumoperitoneum. No pneumatosis. Bilateral sacroiliitis is again noted. The heart remains mildly enlarged. The unenhanced liver, spleen, adrenal glands, pancreas, and gallbladder are unremarkable. Moderate bilateral renal atrophy, unchanged. There is a 7 mm stone within the lower pole of the left kidney. No ureteral stones. No hydronephrosis. The bladder is unremarkable. The uterus and bilateral adnexa are stable. Stable scarlike density within the right rectus abdominis muscle. A few colonic diverticula. No definite bowel wall thickening or obstruction. The visualized appendix is within normal limits. No retroperitoneal lymphadenopathy. Liquid stool within the colon. IMPRESSION: 1. No significant change compared to the prior study. 2. No definite bowel wall thickening or obstruction. 3. Liquid stool within the colon. This could represent a low-grade gastroenteritis. 4. Left-sided nephrolithiasis. No ureteral stones. No hydronephrosis. 5. Bilateral renal atrophy, unchanged. 6. Colonic diverticulosis. 7. Bilateral sacroiliitis. Electronically signed by: Gage Bolanos M.D. 06/16/2017 9:51 PM Dictated Date/Time: 06/16/2017 9:43 PM
[2017-06-17] VITALS (22 sets, daily range): BP systolic 125–181; BP diastolic 60–116; PULSE 64–84; TEMP 36.8–37.1; O2SAT 95–98
[2017-06-17] MEDS: ONDANSETRON INJ 2 MG/ML 2 ML VIAL IV PRN ×2 (00:18→19:40)
[2017-06-17] MEDS: HYDROCODONE/ACETAMOPHEN 5/325MG TAB PO PRN ×3 (00:19→22:37)
[2017-06-17 07:15] LABS: HEMATOCRIT 30.1 % (37-47); MEAN CELL VOLUME 96.5 fL (80-100); MEAN CORPUSCULAR HEMOGLOBIN 33.3 pg (25-34); MEAN CORPUSCULAR HGB CONC 34.6 g/dl (32-36); MEAN PLATELET VOLUME 8.9 fL (7.4-10.4); PLATELET COUNT 186 K/uL (130-400); RED BLOOD COUNT 3.12 M/uL (4.2-5.4)
[2017-06-17] MEDS: CALCIUM ACETATE 667MG GELCAP PO SCH ×3 (07:24→17:08)
[2017-06-17] MEDS: PANTOprazole SOD 40 MG TAB PO SCH ×2 (07:25→19:40)
[2017-06-17] MEDS: LABETALOL HCL 200 MG TAB PO SCH ×2 (07:25→19:40)
[2017-06-17 08:10] LABS: BUN/CREATININE RATIO 4.5 (10-20); CALCIUM 8.1 mg/dl (8.5-10.1); CREATININE 8.7 mg/dl (0.60-1.20); POTASSIUM 3.1 mmol/L (3.5-5.1)
--- NOTE | 2017-06-17 11:20 | Progress Note ---
Subjective Date of Service: Jun 17, 2017. Subjective Pt evaluation today including: conversation w/ patient, conversation w/ family , physical exam, chart review, lab review, review of studies, conversation w/ [employer] consultant, review of inpatient medication list Patient is seen in the dialysis , Feeling better, tolerate diet, no more abdominal pain, Problem List Medical Problems: (1) CHF (congestive heart failure) Status: Acute (2) Creatinine elevation Status: Acute (3) Elevated bilirubin Status: Acute (4) Epigastric abdominal pain Status: Acute (5) Fever Status: Acute (6) HTN (hypertension) Status: Acute (7) Nausea vomiting and diarrhea Status: Acute (8) Renal failure Status: Acute Review of Systems Constitutional: + weakness, + fatigue, No fever, No chills, No sweats, No weight loss, No problem reported Eyes: No worsening of vision, No eye pain, No redness, No discharge, No diplopia ENT: No hearing loss, No unusual epistaxis, No nasal symptoms, No sore throat, No tinnitus, No dental problems, No trouble swallowing Respiratory: No cough, No sputum, No wheezing, No shortness of breath, No dyspnea on exertion, No dyspnea at rest, No hemoptysis Cardiac: No chest pain, No orthopnea, No PND, No edema, No claudication, No palpitations Abdomen: No pain, No nausea, No vomiting, No diarrhea, No constipation Musculoskeletal: No joint pain, No muscle pain, No swelling, No calf pain Female : No dysuria, No urinary frequency, No hematuria, No incontinence, No abnormal vaginal bleeding, No vaginal discharge Neurologic: No memory loss, No paralysis, No weakness, No numbness/tingling, No vertigo, No balance problems Psychiatric: No depression symptoms, No anhedonism, No anxiety, No insomnia, No substance abuse Heme: No abnormal bleeding/bruising, No clotting problems, No swollen lymph nodes, No night sweats Endo: No fatigue, No excessive thirst, No excessive urination Skin: No rash, No itch, No new/changing skin lesions, No color change, No bleeding Objective Vital Signs Date Time Temp Pulse Resp B/P (MAP) Pulse Ox O2 Delivery O2 Flow Rate FiO2 06/17/17 10:30 80 149/97 06/17/17 10:16 36.8 77 174/106 (128) 06/17/17 08:45 Room Air 06/17/17 07:13 36.8 79 18 181/101 (127) 95 06/17/17 05:49 80 161/93 (115) 97 Room Air 06/17/17 00:10 Room Air 06/17/17 00:03 36.8 84 20 155/96 (115) 96 Room Air 06/16/17 16:30 Room Air 06/16/17 15:51 36.8 82 18 166/97 (120) 96 Room Air 06/16/17 13:40 36.8 77 174/110 (131) 06/16/17 13:00 80 185/112 06/16/17 12:45 81 150/97 06/16/17 12:30 76 156/100 06/16/17 12:15 82 156/101 06/16/17 12:00 80 147/96 06/16/17 11:45 79 157/97 06/16/17 11:30 80 152/96 Physical Exam General Appearance: WD/WN, no apparent distress, + obese Eyes: normal inspection, PERRL, EOMI, sclerae normal ENT: normal ENT inspection, hearing grossly normal, pharynx normal Neck: supple, no adenopathy, thyroid normal, no JVD, no carotid bruits, trachea midline Respiratory/Chest: chest non-tender, lungs clear, normal breath sounds, no respiratory distress, no accessory muscle use Cardiovascular: regular rate, rhythm, no edema, no gallop, no JVD, no murmur Abdomen: normal bowel sounds, non tender, soft, no organomegaly, no pulsatile mass Extremities: normal range of motion, non-tender, normal inspection, no pedal edema, no calf tenderness, normal capillary refill, pelvis stable Neurologic/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, no motor/sensory deficits, alert, normal mood/affect, oriented x 3 Skin: normal color, warm/dry, no rash Lymphatic: no adenopathy Laboratory Results Last 24 Hours Test 06/16/17 18:28 06/17/17 06:49 Lipase 76 U/L White Blood Count 4.60 K/uL Red Blood Count 3.12 M/uL Hemoglobin 10.4 g/dL Hematocrit 30.1 % Mean Corpuscular Volume 96.5 fL Mean Corpuscular Hemoglobin 33.3 pg Mean Corpuscular Hemoglobin Concent 34.6 g/dl RDW Standard Deviation 62.3 fL RDW Coefficient of Variation 17.7 % Platelet Count 186 K/uL Mean Platelet Volume 8.9 fL Sodium Level 139 mmol/L Potassium Level 3.1 mmol/L Chloride Level 103 mmol/L Carbon Dioxide Level 24 mmol/L Anion Gap 12.0 mmol/L Blood Urea Nitrogen 39 mg/dl Creatinine 8.70 mg/dl Est Creatinine Clear Calc Drug Dose 10.4 ml/min Estimated GFR () 6.1 Estimated GFR (Non- 5.3 BUN/Creatinine Ratio 4.5 Random Glucose 91 mg/dl Calcium Level 8.1 mg/dl Magnesium Level 2.0 mg/dl Assessment and Plan 36 y/o F who was admitted on 06/15 with abd pain, n/v, possible water's gastritis , improving Possible virus gastritis asso with abd pain, n/v, no more nausea vomiting, Abdominal CT was checked, no obvious obstruction or significant event Improving and stable advance as tolerated No leukocytosis, no more fever ESRD: Continue dialysis today Hypokinemia replaced with oral potassium Accelerated hypertension : Resolved Restart home medication such as hydralazine 50 mg by mouth 4 times a day, Advanced diet, although bed and walk, prepare going home tomorrow Morbid obesity with BMI 41, Other: Full code SCDs for DVT proph Increase activities after dialysis, advance diet as tolerated, Possible discharge home tomorrow Continued [facility] stay due to: multiple IV medications needed Discharge planning: home
[2017-06-17] MEDS ORDERED: POTASSIUM CHLORIDE 10 MEQ TABCR PO ONE (11:30)
[2017-06-17] MEDS ORDERED: NURSING VERBAL MED ORDER ONE (11:30)
[2017-06-17] MEDS ORDERED: POTASSIUM CHLR 10 MEQ / WTR 10 MEQ in PREMIXED WATER 100 ML IV SCH (11:30)
--- NOTE | 2017-06-17 11:58 | Nephrology Progress Note ---
Nephrology Progress Note Date of Service Jun 17, 2017. Chief Complaint F/U for end-stage renal disease on hemodialysis. Subjective Astrid Was seen and examined in her room this morning. She was comfortable, lying in bed, nausea and abdominal discomfort for improve significantly. No further vomiting or diarrhea. Had urgent dialysis yesterday, uneventful tolerated UF. Blood pressure continues to be elevated. Review of Systems A complete review of systems was performed. Pertinent positives are noted above. All other systems are negative. Vital Signs Last 8 Hrs Date Time Temp Pulse Resp B/P (MAP) Pulse Ox O2 Delivery O2 Flow Rate FiO2 06/17/17 07:13 36.8 79 18 181/101 (127) 95 06/17/17 05:49 80 161/93 (115) 97 Room Air Last Recorded Weight Weight (Kilograms): 104.500 Physical Exam GENERAL: young female, AAA x 3, obese, not in any distress. NECK: Supple, no JVD. RESPIRATORY: CTA CARDIOVASCULAR: S1, S2 normal, rate rhythm regular. EXTREMITY: no lower extremity edema NEURO: speech fluent. PSYCHIATRY: Normal mood and judgment Family History Diabetes mellitus FHx: heart disease Hypertension Social History Smoking Status: Former smoker Alcohol Use: none Drug Use: none Marital Status: single Occupation: unemployed Laboratory Results Past 24 Hours 06/17/17 06:49 06/17/17 06:49 Test 06/16/17 18:28 06/17/17 06:49 Lipase 76 U/L (73-393) Red Blood Count 3.12 M/uL (4.2-5.4) Mean Corpuscular Volume 96.5 fL (80-100) Mean Corpuscular Hemoglobin 33.3 pg (25-34) Mean Corpuscular Hemoglobin Concent 34.6 g/dl (32-36) RDW Standard Deviation 62.3 fL (36.4-46.3) RDW Coefficient of Variation 17.7 % (11.5-14.5) Mean Platelet Volume 8.9 fL (7.4-10.4) Anion Gap 12.0 mmol/L (3-11) Est Creatinine Clear Calc Drug Dose 10.4 ml/min Estimated GFR () 6.1 Estimated GFR (Non- 5.3 BUN/Creatinine Ratio 4.5 (10-20) Calcium Level 8.1 mg/dl (8.5-10.1) Magnesium Level 2.0 mg/dl (1.8-2.4) Allergies Coded Allergies: No Known Allergies (Verified , 06/15/17) Medications Current Inpatient Medications Medications (Trade) Dose Ordered Sig/[place] Route Start Time Stop Time Status Last Admin Dose Admin Acetaminophen (Tylenol Tab) 650 mg Q4H PRN PO 06/15/17 16:45 07/15/17 16:44 Magnesium Hydroxide (Milk Of Magnesia Susp) 30 ml Q6H PRN PO 06/15/17 16:45 07/15/17 16:44 Ondansetron HCl (Zofran Inj) 4 mg Q6H PRN IV 06/15/17 16:45 07/15/17 16:44 06/17/17 00:18 4 MG Calcium Acetate (Phoslo Cap) 667 mg TIDM PO 06/15/17 18:00 07/15/17 17:59 06/17/17 07:24 667 MG Pantoprazole Sodium (Protonix Tab) 40 mg BID PO 06/15/17 21:00 07/15/17 20:59 06/17/17 07:25 40 MG Morphine Sulfate (MoRPHine SULFATE INJ) 1 mg Q6H PRN IV 06/15/17 17:00 06/29/17 16:59 06/15/17 18:56 1 MG Promethazine HCl 25 mg/Sodium Chloride 51 ml @ 204 mls/hr Q6H PRN IV 06/15/17 17:00 07/15/17 16:59 06/15/17 23:57 204 MLS/HR Ondansetron HCl 8 mg/Dextrose 54 ml @ 200 mls/hr Q4H PRN IV 06/15/17 18:00 07/15/17 17:59 Labetalol HCl (Normodyne Tab) 400 mg BID PO 06/16/17 09:00 07/16/17 08:59 06/17/17 07:25 400 MG Acetaminophen 100 ml @ 400 mls/hr Q8H PRN IV 06/16/17 06:00 07/16/17 05:59 06/16/17 06:31 400 MLS/HR Hydralazine HCl (HydrALAZINE INJ) 20 mg Q8 PRN IV. 06/16/17 07:45 07/16/17 07:44 06/16/17 07:57 20 MG Hydralazine HCl (Apresoline Tab) 50 mg Q6 PO 06/16/17 12:00 07/16/17 13:59 06/17/17 07:25 50 MG Acetaminophen/ Hydrocodone Bitart ([place] 5/325 Tab) 1 tab Q6H PRN PO 06/16/17 16:55 06/30/17 16:54 06/17/17 00:19 1 TAB Impression 36 y old female with history of end-stage renal disease secondary to hypertensive nephrosclerosis,on hemodialysis Friday, , Friday via right radiocephalic AV fistula at [place] dialysis unit. Admitted with episode of gastroenteritis. She has history of high weight gain and poorly- controlled HTN to dietary noncompliance. She missed dialysis Friday as she was feeling poorly, currently blood pressure running high and she is clearly volume overloaded although respiratory status seems stable. Electrolyte acceptable. Recommendations --plan for hemodialysis today for 4 hours as her regular schedule, will dialyze with 4 K bath as potassium running low --okay to give oral potassium chloride 20 mEq p.o. x1 dose --continued Nephrocaps and renal diet --dose medications for GFR less than 10 --continue on current antihypertensive medications and low-salt diet. --continue on phosphate binders with meals. Will follow
[2017-06-17] MEDS: MoRPHine SULFATE 2 MG/ML CARP IV PRN (19:40)
[2017-06-18] MEDS: MoRPHine SULFATE 2 MG/ML CARP IV PRN
[2017-06-18 00:45] VITALS: BP 154/101; PULSE 98; TEMP 36.8; O2SAT 99
[2017-06-18 06:43] LABS: BUN/CREATININE RATIO 4.2 (10-20); CALCIUM 8.9 mg/dl (8.5-10.1); CREATININE 6.5 mg/dl (0.60-1.20); POTASSIUM 3.1 mmol/L (3.5-5.1)
[2017-06-18 07:09] VITALS: BP 174/98; PULSE 77; TEMP 37; O2SAT 97
[2017-06-18] MEDS: CALCIUM ACETATE 667MG GELCAP PO SCH (07:59)
[2017-06-18] MEDS: PANTOprazole SOD 40 MG TAB PO SCH (07:59)
[2017-06-18] MEDS: LABETALOL HCL 200 MG TAB PO SCH (07:59)
[2017-06-18] MEDS ORDERED: POTASSIUM CHLORIDE 10 MEQ TABCR PO STA (08:50)
[2017-06-18] MEDS: HYDROCODONE/ACETAMOPHEN 5/325MG TAB PO PRN (09:20)
--- NOTE | 2017-06-18 10:11 | Nephrology Progress Note ---
Nephrology Progress Note Date of Service Jun 18, 2017. Chief Complaint F/U for end-stage renal disease on hemodialysis. Subjective Astrid was seen and examined in her room this am. Overall feeling well, nausea and GI symptoms resolved. had HD yesterday, BP high, chronic but volume status and electrolyte acceptable. Review of Systems A complete review of systems was performed. Pertinent positives are noted above. All other systems are negative. Vital Signs Last 8 Hrs Date Time Temp Pulse Resp B/P (MAP) Pulse Ox O2 Delivery O2 Flow Rate FiO2 06/18/17 07:09 37.0 77 18 174/98 (123) 97 Room Air Last Recorded Weight Weight (Kilograms): 102.500 Physical Exam GENERAL: young female, AAA x 3, obese, not in any distress. NECK: Supple, no JVD. RESPIRATORY: CTA CARDIOVASCULAR: S1, S2 normal, rate rhythm regular. EXTREMITY: no lower extremity edema NEURO: speech fluent. PSYCHIATRY: Normal mood and judgment Family History Diabetes mellitus FHx: heart disease Hypertension Social History Smoking Status: Former smoker Alcohol Use: none Drug Use: none Marital Status: single Occupation: unemployed Laboratory Results Past 24 Hours 06/18/17 05:33 Test 06/18/17 05:33 Anion Gap 12.0 mmol/L (3-11) Est Creatinine Clear Calc Drug Dose 13.8 ml/min Estimated GFR () 8.7 Estimated GFR (Non- 7.5 BUN/Creatinine Ratio 4.2 (10-20) Calcium Level 8.9 mg/dl (8.5-10.1) Allergies Coded Allergies: No Known Allergies (Verified , 06/15/17) Medications Current Inpatient Medications Medications (Trade) Dose Ordered Sig/[place] Route Start Time Stop Time Status Last Admin Dose Admin Acetaminophen (Tylenol Tab) 650 mg Q4H PRN PO 06/15/17 16:45 07/15/17 16:44 Magnesium Hydroxide (Milk Of Magnesia Susp) 30 ml Q6H PRN PO 06/15/17 16:45 07/15/17 16:44 Ondansetron HCl (Zofran Inj) 4 mg Q6H PRN IV 06/15/17 16:45 07/15/17 16:44 06/17/17 19:40 4 MG Calcium Acetate (Phoslo Cap) 667 mg TIDM PO 06/15/17 18:00 07/15/17 17:59 06/18/17 07:59 667 MG Pantoprazole Sodium (Protonix Tab) 40 mg BID PO 06/15/17 21:00 07/15/17 20:59 06/18/17 07:59 40 MG Morphine Sulfate (MoRPHine SULFATE INJ) 1 mg Q6H PRN IV 06/15/17 17:00 06/29/17 16:59 06/18/17 00:00 1 MG Promethazine HCl 25 mg/Sodium Chloride 51 ml @ 204 mls/hr Q6H PRN IV 06/15/17 17:00 07/15/17 16:59 06/15/17 23:57 204 MLS/HR Ondansetron HCl 8 mg/Dextrose 54 ml @ 200 mls/hr Q4H PRN IV 06/15/17 18:00 07/15/17 17:59 Labetalol HCl (Normodyne Tab) 400 mg BID PO 06/16/17 09:00 07/16/17 08:59 06/18/17 07:59 400 MG Acetaminophen 100 ml @ 400 mls/hr Q8H PRN IV 06/16/17 06:00 07/16/17 05:59 06/16/17 06:31 400 MLS/HR Hydralazine HCl (HydrALAZINE INJ) 20 mg Q8 PRN IV. 06/16/17 07:45 07/16/17 07:44 06/16/17 07:57 20 MG Hydralazine HCl (Apresoline Tab) 50 mg Q6 PO 06/16/17 12:00 07/16/17 13:59 06/18/17 06:03 50 MG Acetaminophen/ Hydrocodone Bitart ([place] 5/325 Tab) 1 tab Q6H PRN PO 06/16/17 16:55 06/30/17 16:54 06/18/17 09:20 1 TAB Impression 36 y old female with history of end-stage renal disease secondary to hypertensive nephrosclerosis,on hemodialysis Friday, , Friday via right radiocephalic AV fistula at [place] dialysis unit. Admitted with episode of gastroenteritis. She has history of high weight gain and poorly- controlled HTN to dietary noncompliance. She missed dialysis Friday as she was feeling poorly, currently blood pressure running high and she is clearly volume overloaded although respiratory status seems stable. Electrolyte acceptable. Recommendations --potassium chloride 40 mEq p.o. x1 dose --continued Nephrocaps and renal diet --dose medications for GFR less than 10 --continue on current antihypertensive medications and low-salt diet. --continue on phosphate binders with meals. --HD tomorrow Will follow
--- NOTE | 2017-06-18 10:17 | Progress Note ---
Subjective Date of Service: Jun 17, 2017. Subjective Pt evaluation today including: conversation w/ patient, physical exam, chart review, lab review, review of studies, conversation w/ child welfare consultant, review of inpatient medication list doing ok , seeing in HD, abd pain better, tolerated some clear diet Problem List Medical Problems: (1) CHF (congestive heart failure) Status: Acute (2) Creatinine elevation Status: Acute (3) Elevated bilirubin Status: Acute (4) Epigastric abdominal pain Status: Acute (5) Fever Status: Acute (6) HTN (hypertension) Status: Acute (7) Nausea vomiting and diarrhea Status: Acute (8) Renal failure Status: Acute Review of Systems Constitutional: No fever, No chills, No sweats, No weight loss, No weakness, No fatigue, No problem reported Eyes: No worsening of vision, No eye pain, No redness, No discharge, No diplopia ENT: No hearing loss, No unusual epistaxis, No nasal symptoms, No sore throat, No tinnitus, No dental problems, No trouble swallowing Respiratory: No cough, No sputum, No wheezing, No shortness of breath, No dyspnea on exertion, No dyspnea at rest, No hemoptysis Cardiac: No chest pain, No orthopnea, No PND, No edema, No claudication, No palpitations Abdomen: + pain (is better), No nausea, No vomiting, No diarrhea, No constipation Musculoskeletal: No joint pain, No muscle pain, No swelling, No calf pain Female : No dysuria, No urinary frequency, No hematuria, No incontinence, No abnormal vaginal bleeding, No vaginal discharge Neurologic: No memory loss, No paralysis, No weakness, No numbness/tingling, No vertigo, No balance problems Psychiatric: No depression symptoms, No anhedonism, No anxiety, No insomnia, No substance abuse Heme: No abnormal bleeding/bruising, No clotting problems, No swollen lymph nodes, No night sweats Endo: No fatigue, No excessive thirst, No excessive urination Skin: No rash, No itch, No new/changing skin lesions, No color change, No bleeding Objective Vital Signs Date Time Temp Pulse Resp B/P (MAP) Pulse Ox O2 Delivery O2 Flow Rate FiO2 06/17/17 10:30 80 149/97 06/17/17 10:16 36.8 77 174/106 (128) 06/17/17 08:45 Room Air 06/17/17 07:13 36.8 79 18 181/101 (127) 95 06/17/17 05:49 80 161/93 (115) 97 Room Air 06/17/17 00:10 Room Air 06/17/17 00:03 36.8 84 20 155/96 (115) 96 Room Air 06/16/17 16:30 Room Air 06/16/17 15:51 36.8 82 18 166/97 (120) 96 Room Air 06/16/17 13:40 36.8 77 174/110 (131) 06/16/17 13:00 80 185/112 06/16/17 12:45 81 150/97 06/16/17 12:30 76 156/100 06/16/17 12:15 82 156/101 06/16/17 12:00 80 147/96 06/16/17 11:45 79 157/97 06/16/17 11:30 80 152/96 Physical Exam General Appearance: WD/WN, no apparent distress, + obese Eyes: normal inspection, PERRL, EOMI, sclerae normal ENT: normal ENT inspection, hearing grossly normal, pharynx normal Neck: supple, no adenopathy, thyroid normal, no JVD, no carotid bruits, trachea midline Respiratory/Chest: chest non-tender, normal breath sounds, no respiratory distress, no accessory muscle use, + decreased breath sounds Cardiovascular: regular rate, rhythm, no edema, no gallop, no JVD, no murmur Abdomen: normal bowel sounds, non tender, soft, no organomegaly, no pulsatile mass Extremities: normal range of motion, non-tender, normal inspection, no pedal edema, no calf tenderness, normal capillary refill, pelvis stable 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, no motor/sensory deficits, alert, normal mood/affect, oriented x 3 Skin: normal color, warm/dry, no rash Lymphatic: no adenopathy Laboratory Results Last 24 Hours Test 06/16/17 18:28 06/17/17 06:49 Lipase 76 U/L White Blood Count 4.60 K/uL Red Blood Count 3.12 M/uL Hemoglobin 10.4 g/dL Hematocrit 30.1 % Mean Corpuscular Volume 96.5 fL Mean Corpuscular Hemoglobin 33.3 pg Mean Corpuscular Hemoglobin Concent 34.6 g/dl RDW Standard Deviation 62.3 fL RDW Coefficient of Variation 17.7 % Platelet Count 186 K/uL Mean Platelet Volume 8.9 fL Sodium Level 139 mmol/L Potassium Level 3.1 mmol/L Chloride Level 103 mmol/L Carbon Dioxide Level 24 mmol/L Anion Gap 12.0 mmol/L Blood Urea Nitrogen 39 mg/dl Creatinine 8.70 mg/dl Est Creatinine Clear Calc Drug Dose 10.4 ml/min Estimated GFR () 6.1 Estimated GFR (Non- 5.3 BUN/Creatinine Ratio 4.5 Random Glucose 91 mg/dl Calcium Level 8.1 mg/dl Magnesium Level 2.0 mg/dl Assessment and Plan 36 y/o F who was admitted on 06/15 with abd pain, n/v, possible gastritis, improving Possible virus gastritis asso with abd pain, n/v, no more nausea vomiting, will continue clear liquid diet, advance as tolerated No leukocytosis, no more fever Abdominal pain, she reported from possible vomiting, no more abdominal pain, abdominal exam is soft, will continue watch ESRD: Continue dialysis today Hypokinemia replaced, will f/u Accelerated hypertension : Restart home medication such as hydralazine 50 mg by mouth 4 times a day, will follow Advanced diet, although bed and walk, prepare going home tomorrow Morbid obesity with BMI 41, Other: Full code SCDs for DVT proph Continued [facility] stay due to: multiple IV medications needed Discharge planning: home
--- NOTE | 2017-06-18 10:21 | Discharge Instructions ---
Discharge Instructions Date of Service Jun 18, 2017. Admission Reason for Admission: Vomiting Discharge Discharge Diagnosis / Problem: virus gastritis Discharge Goals Goal(s): Decrease discomfort, Improve function, Increase independence, Improve disease control, Improve nutritional status, Learn about illness, Diagnostic testing, Therapeutic intervention, Prevent Disease Progression, Specific goals Activity Recommendations Activity Limitations: resume your previous activity . Instructions / Follow-Up Instructions / Follow-Up you possible gastritis, improving ESRD: Continue dialysis with nephrology you have Hypokinemia replaced, you need to have labs checked in 3-5 days, and follow up with pcp, replace if need you have Accelerated hypertension : and follow up with pcp - you need to follow up with your primary care physician in 1 week, - take medication as instructed, never overdose or any misuse, or take with alcohol, because misuse of medicine may cause organ damage or , call your primary care physician if have questions of medicaitons. - call your primary care physician OR go to local emergency room if has any fever/chill, chest pain, shortness of breathing, nausea/vomiting/abdominal pain , facial droop/slurry speech/local weakness, or if has any questions. - fall precaution - diet as instructed - you need to follow up with your subspecialist - you should understand that it is important to follow up the above instruction , and "not following the above instruction" may cause delayed or missed care of your medical conditions which may cause permanent organ damage and even . Current Hospital Diet Patient's current hospital diet: Renal Diet Discharge Diet Recommended Diet: Renal Diet Procedures Procedures Performed: no Pending Studies Studies pending at discharge: no Laboratory Results Hemoglobin A1c Test 04/18/17 13:48 Range/Units Estimated Average Glucose 74 mg/dl Hemoglobin A1c 4.2 L 4.5-5.6 % Lipid Panel Test 04/18/17 13:48 Range/Units Triglycerides Level 114 0-150 mg/dl Cholesterol Level 141 0-200 mg/dl HDL Cholesterol 50 mg/dl Cholesterol/HDL Ratio 2.8 LDL Cholesterol, Calculated 68 mg/dl Medical Emergencies . Who to Call and When: Medical Emergencies: If at any time you feel your situation is an emergency, please call 911 immediately. . Non-Emergent Contact Non-Emergency issues call your: Primary Care Provider, Safety Aide . . "Provider Documentation" section prepared by Johnny Serrato. . VTE Core Measure Inpt VTE Proph given/why not?: Unfractionated heparin SQ
[2017-06-18 10:59] VITALS: BP 174/98; PULSE 77; TEMP 37; O2SAT 97
--- NOTE | 2017-06-18 16:25 | Discharge Summary ---
Discharge Summary Date of Service Jun 18, 2017. 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 Medication Reconciliation Continued Medications: Calcium Acetate (Phoslo 667 Mg) 667 Mg Cap 667 MG PO TIDM, #90 CAP Hydralazine HCl (Hydralazine HCl) 50 Mg Tab 50 MG PO QID, #120 TAB Labetalol Hcl (Labetalol Hcl) 200 Mg Tab 400 MG PO BID for 30 Days, #60 TAB 5 Refills Pantoprazole (Protonix) 40 Mg Tab 40 MG PO BID, TAB Discharge Exam Still have mild nausea edition, no abdominal pain Review of Systems: Constitutional: No fever, No chills, No sweats, No weight loss, No weakness , No fatigue, No problem reported Eyes: No worsening of vision, No eye pain, No redness, No discharge, No diplopia, No problem reported ENT: No hearing loss, No unusual epistaxis, No nasal symptoms, No sore throat, No tinnitus, No dental problems, No trouble swallowing, No problem reported Respiratory: No cough, No sputum, No wheezing, No shortness of breath, No dyspnea on exertion, No dyspnea at rest, No hemoptysis, No problem reported Cardiovascular: No chest pain, No orthopnea, No PND, No edema, No claudication, No palpitations, No problem reported Abdomen: + nausea (mild), No pain, No vomiting, No diarrhea, No constipation , No GI bleeding, No problem reported Musculoskeletal: No joint pain, No muscle pain, No swelling, No calf pain, No problem reported Genitourinary - Female: No dysuria, No urinary frequency, No urinary urgency , No urinary incontinence, No urinary retention, No hematuria, No dysmenorrhea, No menorrhagia, No metrorrhagia, No rash, No vaginal bleeding, No vaginal discharge, No vaginal itching, No vulvodynia, No , No problem reported Neurologic: No memory loss, No paralysis, No weakness, No numbness/tingling , No vertigo, No balance problems, No problem reported Psychiatric: No depression symptoms, No anhedonism, No anxiety, No insomnia , No substance abuse, No problem reported Hematologic / Lymphatic: No abnormal bleeding/bruising, No clotting problems , No swollen lymph nodes, No night sweats, No problem reported Integumentary: No rash, No itch, No new/changing skin lesions, No color change, No bleeding, No problem reported Physical Exam: General Appearance: WD/WN, no apparent distress, + obese Eyes: normal inspection, PERRL ENT: normal ENT inspection, hearing grossly normal Neck: supple, no adenopathy, thyroid normal Respiratory/Chest: chest non-tender, normal breath sounds, no respiratory distress, no accessory muscle use, + decreased breath sounds Cardiovascular: regular rate, rhythm, no edema, no gallop Abdomen / GI: normal bowel sounds, non tender, soft, no organomegaly, no pulsatile mass Extremities: normal inspection, no calf tenderness, normal capillary refill 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, no motor/sensory deficits , alert, normal mood/affect, normal reflexes Skin: normal color, warm/dry Hospital Course 36 y/o F who was admitted on 06/15/2017 with abd pain, n/v, possible gastritis, improving/resolving Possible virus gastritis asso with abd pain, n/v, mild nausea edition, no more vomiting, has been tolerated diet No leukocytosis, no more fever, has been up and walk Abdominal pain, she reported from possible vomiting, no more abdominal pain, abdominal exam is soft, ESRD: Continue dialysis today Hypokinemia replaced, Accelerated hypertension : Restart home medication such as hydralazine 50 mg by mouth 4 times a day, has been better, has advised patient to follow-up with PCP Morbid obesity with BMI 41, Other: Full code SCDs for DVT proph Instructions / Follow-Up you possible gastritis, improving ESRD: Continue dialysis with nephrology you have Hypokinemia replaced, you need to have labs checked in 3-5 days, and follow up with pcp, replace if need you have Accelerated hypertension : and follow up with pcp - you need to follow up with your primary care physician in 1 week, - take medication as instructed, never overdose or any misuse, or take with alcohol, because misuse of medicine may cause organ damage or , call your primary care physician if have questions of medicaitons. - call your primary care physician OR go to local emergency room if has any fever/chill, chest pain, shortness of breathing, nausea/vomiting/abdominal pain , facial droop/slurry speech/local weakness, or if has any questions. - fall precaution - diet as instructed - you need to follow up with your subspecialist - you should understand that it is important to follow up the above instruction , and "not following the above instruction" may cause delayed or missed care of your medical conditions which may cause permanent organ damage and even . Total Time Spent: Greater than 30 minutes This includes examination of the patient, discharge planning, medication reconciliation, and communication with other providers. Discharge Instructions Please refer to the electronic Patient Visit Report (Discharge Instructions) for additional information. Additional Copies To Heather Minor MD
== END 2017-06-18 11:50 | disposition home or self-care (01) | DRG 391 ==
LOC: C.EDB 10:48 → C.MS2W 16:47 → ENRESERV 17:34
PROVIDERS: ADMIT Family Medicine; ATTEND Hospitalist
PROC: 5A1D70Z Performance of Urinary Filtration, Intermittent, Less than 6 Hours Per Day (ICD-10-PCS; principal; 2017-06-16)
DX: A08.4 Viral intestinal infection, unspecified (principal); N18.6 End stage renal disease; I13.2 Hypertensive heart and chronic kidney disease with heart failure and with stage 5 chronic kidney disease, or end stage renal disease; E66.2 Morbid (severe) obesity with alveolar hypoventilation; Z68.41 Body mass index [BMI] 40.0-44.9, adult; B34.9 Viral infection, unspecified; Z99.2 Dependence on renal dialysis; F17.200 Nicotine dependence, unspecified, uncomplicated; I50.9 Heart failure, unspecified; K21.9 Gastro-esophageal reflux disease without esophagitis; E87.6 Hypokalemia; Z91.11 Patient's noncompliance with dietary regimen

== ENCOUNTER → 2017-08-08 | Outpatient (CLI) | payer OTHER ==
[~2017-08-08] MED LIST changes: -FERR325T PO
[2017-08-08 13:23] LABS: URINE APPEARANCE TURBID (CLEAR); URINE BILIRUBIN NEG (NEG); URINE COLOR YELLOW; URINE EPITHELIAL CELL AUTO >30 /lpf (0-5); URINE NITRITE NEG (NEG); URINE PH 5.5 (4.5-7.5); URINE SPECIFIC GRAVITY 1.023 (1.000-1.030); UROBILINOGEN NEG (NEG); ZZUR CULT IF INDIC CLEAN CATCH YES
[2017-08-08 13:26] LABS: MANUAL MICROSCOPIC REQUIRED? NO; REVIEW REQ? YES
== END | disposition home or self-care (01) ==
LOC: C.LAB 12:17
PROVIDERS: ATTEND Nurse Practitioner Adult Health
DX: R39.9 Unspecified symptoms and signs involving the genitourinary system (principal)

== ENCOUNTER 2017-08-11 15:14 | Inpatient (IN) | payer OTHER ==
[~2017-08-11] VITALS: Ht 162.6 cm; Wt 102.3 kg
[2017-08-11] MEDS ORDERED: SODIUM CHLORIDE 0.9% 1000ML 1,000 ML IV STA (15:26)
[2017-08-11] MEDS ORDERED: HYDROmorphone INJ 0.5 MG/0.5 ML SYR IV STA ×2 (15:28→16:31)
--- NOTE | 2017-08-11 15:32 | EMERGENCY ROOM VISIT NOTE ---
History First contact with patient: 15:19 Chief Complaint: ILLNESS Stated Complaint: ILLNESS History of Present Illness The patient is a 36 year old female currently undergoing dialysis who presents to the Emergency Room with complaints of "illness". Last dialysis was on Friday. She notes that last week she felt ill, generalized pain all over, nausea, vomiting and diarrhea. She states that she was seen here on Friday had urinalysis performed and they diagnosed with UTI. She's been taking medication for this but persistence and cannot take a medication secondary to the vomiting. She now notes pain all over to include chest pain shortness of breath and generalized aches. Review of Systems A complete 10-point Review of Systems was discussed with the patient, with pertinent positives and negatives listed in the History of Present Illness. All remaining Review of Systems questions can be considered negative unless otherwise specified. Past Medical/Surgical History Medical Problems: (1) Abdominal pain (2) Anemia (3) Asthma (4) CKD (chronic kidney disease) requiring chronic dialysis (5) End stage renal failure on dialysis (6) Obesity Surgical Problems: (1) History of section Social History Problems: (1) Tobacco use Family History Diabetes mellitus FHx: heart disease Hypertension Social History Smoking Status: Former Smoker Alcohol Use: none Drug Use: none Marital Status: single Housing Status: lives with family Occupation Status: unemployed Current/Historical Medications Scheduled Calcium Acetate (Phoslo 667 Mg), 667 MG PO TIDM Hydralazine HCl (Hydralazine HCl), 50 MG PO QID Labetalol Hcl (Labetalol Hcl), 400 MG PO BID Pantoprazole (Protonix), 40 MG PO BID Physical Exam Vital Signs Date Time Temp Pulse Resp B/P (MAP) Pulse Ox O2 Delivery O2 Flow Rate FiO2 08/11/17 19:24 92 18 179/103 97 Room Air 08/11/17 18:05 88 18 236/137 99 Room Air 08/11/17 18:04 96 Room Air 08/11/17 17:00 86 20 209/130 98 Room Air 08/11/17 15:30 79 08/11/17 15:25 36.9 86 20 188/120 95 Room Air Physical Exam VITAL SIGNS - Vital signs and nursing notes were reviewed. Stable. GENERAL - 36-year-old female appearing her stated age and appears to be in pain and is dyspneic. Communicates well with provider and answers questions appropriately. SKIN - Without rashes. R forearm fistula in good cond. HEAD - NC/AT. EYES - PERRL with EOMI bilaterally. Sclera anicteric. EARS - No deformities of external structures noted on gross examination bilaterally. NOSE - Midline and without cyanosis. No epistaxis or purulent drainage noted. MOUTH/OROPHARYNX - Without perioral cyanosis. NECK - Neck with FROM. No nuchal rigidity. LUNGS - Chest wall symmetric without accessory muscle use, intercostals retractions, or central cyanosis. Normal vesicular breath sounds CTA B/L. No wheezes, rales, or rhonchi appreciated. CARDIAC - RRR with S1/S2. No murmur, rubs, or gallops appreciated. ABDOMEN - Abdominal contour normal without pulsations or visible masses. BS normoactive all four quadrants. No tenderness, palpable masses, hepatosplenomegaly, or ascites noted. EXTREMITIES - No clubbing or peripheral cyanosis. No pretibial edema present. + 5/5 strength noted in UE/LE bilaterally. NEUROLOGIC - Cranial nerves II through XII grossly intact. Sensory intact to light touch throughout. PSYCH - A&O, and cooperates fully with examiner. Medical Decision & Procedures ER Provider Diagnostic Interpretation: CHEST ONE VIEW PORTABLE CLINICAL HISTORY: dyspnea, generalized pain COMPARISON STUDY: 06/15/2017 FINDINGS: The heart is mildly enlarged. There is no failure. There is no focal pulmonary consolidation. There are no pleural effusions. Lung volumes are slightly diminished.[ IMPRESSION: No active disease in the chest. Electronically signed by: Eliazar Constantino M.D. 08/11/2017 4:16 PM Dictated Date/Time: 08/11/2017 4:[address] ABD/PELVIS IV CONTRAST ONLY CLINICAL HISTORY: Generalized abdominal pain and fever COMPARISON STUDY: 06/16/2017 TECHNIQUE: Following the IV administration of 90 mL of Optiray-320, CT scan of the abdomen and pelvis was performed from the lung bases to the proximal femurs. Images are reviewed in the axial, sagittal, and coronal planes. IV contrast was administered. Contrast opacification is somewhat limited. The technicians were instructed to evaluate the patient for a possible contrast extravasation. A dose lowering technique was utilized adhering to the principles of ALARA. CT DOSE: 915.98 mGy.cm FINDINGS: Lower chest: The heart is normal in size and configuration, without pericardial effusion. The lung bases and pleural spaces are clear. Liver: The contrast-enhanced liver is normal in size, contour, and attenuation. There is no intrahepatic biliary ductal dilatation. The hepatic veins and portal veins are patent. Gallbladder: Unremarkable. Spleen: Normal in size and attenuation. Pancreas: Unremarkable. Adrenal glands: There is stable adrenal gland thickening Kidneys: There is an 8mm lower pole left renal calculus. There is no hydronephrosis. No solid renal masses are visualized. There is bilateral renal atrophy Bowel: There are no transition zones indicate bowel obstruction. Mild gastric wall thickening is likely secondary to underdistention. There is no acute diverticulitis. The appendix appears normal Peritoneum: There is no intraperitoneal free air or abdominal ascites. Vasculature: The abdominal aorta is normal in course and caliber. Adenopathy: None. Pelvic viscera: The bladder, and pelvic viscera are unremarkable. Skeletal structures: There is bilateral sacroiliitis. IMPRESSION: 1. No evidence of bowel obstruction. No evidence of free air 2. Left-sided nephrolithiasis. No evidence of hydronephrosis 3. Normal appendix. No evidence of acute diverticulitis 4. Bilateral sacroiliitis Electronically signed by: Eliazar Constantino M.D. 08/11/2017 8:15 PM Dictated Date/Time: 08/11/2017 8:06 PM Laboratory Results 08/11/17 15:10 Red Blood Count 2.96, Mean Corpuscular Volume 102.0, Mean Corpuscular Hemoglobin 33.4, Mean Corpuscular Hemoglobin Concent 32.8, Mean Platelet Volume 9.3, Neutrophils (%) (Auto) 58.6, Lymphocytes (%) (Auto) 25.0, Monocytes (%) ( Auto) 13.3, Eosinophils (%) (Auto) 1.8, Basophils (%) (Auto) 0.3, Neutrophils # (Auto) 3.90, Lymphocytes # (Auto) 1.67, Monocytes # (Auto) 0.89, Eosinophils # ( Auto) 0.12, Basophils # (Auto) 0.02 08/11/17 15:10 Test 08/11/17 15:10 08/11/17 15:52 08/11/17 17:50 White Blood Count 6.67 K/uL (4.8-10.8) Red Blood Count 2.96 M/uL (4.2-5.4) Hemoglobin 9.9 g/dL (12.0-16.0) Hematocrit 30.2 % (37-47) Mean Corpuscular Volume 102.0 fL (80-100) Mean Corpuscular Hemoglobin 33.4 pg (25-34) Mean Corpuscular Hemoglobin Concent 32.8 g/dl (32-36) Platelet Count 273 K/uL (130-400) Mean Platelet Volume 9.3 fL (7.4-10.4) Neutrophils (%) (Auto) 58.6 % Lymphocytes (%) (Auto) 25.0 % Monocytes (%) (Auto) 13.3 % Eosinophils (%) (Auto) 1.8 % Basophils (%) (Auto) 0.3 % Neutrophils # (Auto) 3.90 K/uL (1.4-6.5) Lymphocytes # (Auto) 1.67 K/uL (1.2-3.4) Monocytes # (Auto) 0.89 K/uL (0.11-0.59) Eosinophils # (Auto) 0.12 K/uL (0-0.5) Basophils # (Auto) 0.02 K/uL (0-0.2) RDW Standard Deviation 55.7 fL (36.4-46.3) RDW Coefficient of Variation 15.1 % (11.5-14.5) Immature Granulocyte % (Auto) 1.0 % Immature Granulocyte # (Auto) 0.07 K/uL (0.00-0.02) Prothrombin Time 10.6 SECONDS (9.0-12.0) Prothromb Time International Ratio 1.0 (0.9-1.1) Activated Partial Thromboplast Time 40.7 SECONDS (21.0-31.0) Partial Thromboplastin Ratio 1.6 Anion Gap 15.0 mmol/L (3-11) Estimated GFR () 5.6 Estimated GFR (Non- 4.9 BUN/Creatinine Ratio 5.1 (10-20) Calcium Level 7.8 mg/dl (8.5-10.1) Magnesium Level 2.0 mg/dl (1.8-2.4) Total Bilirubin 0.4 mg/dl (0.2-1) Aspartate Amino Transf (AST/SGOT) 15 U/L (15-37) Alanine Aminotransferase (ALT/SGPT) 15 U/L (12-78) Alkaline Phosphatase 136 U/L (45-117) Troponin I 0.029 ng/ml (0-0.045) Total Protein 7.8 gm/dl (6.4-8.2) Albumin 3.1 gm/dl (3.4-5.0) Globulin 4.7 gm/dl (2.5-4.0) Albumin/Globulin Ratio 0.7 (0.9-2) Thyroid Stimulating Hormone (TSH) 0.435 uIu/ml (0.300-4.500) Bedside Troponin I < 0.030 ng/ml (0-0.045) Urine Color YELLOW Urine Appearance CLEAR (CLEAR) Urine pH 6.0 (4.5-7.5) Urine Specific [place] 1.020 (1.000-1.030) Urine Protein 2+ (NEG) Urine Glucose (UA) NEG (NEG) Urine Ketones NEG (NEG) Urine Occult Blood NEG (NEG) Urine Nitrite NEG (NEG) Urine Bilirubin NEG (NEG) Urine Urobilinogen NEG (NEG) Urine Leukocyte Esterase SMALL (NEG) Urine WBC (Auto) 10-30 /hpf (0-5) Urine RBC (Auto) 5-10 /hpf (0-4) Urine Hyaline Casts (Auto) 1-5 /lpf (0-5) Urine Epithelial Cells (Auto) >30 /lpf (0-5) Urine Bacteria (Auto) NEG (NEG) Urine Test NEG (NEG) Medications Administered Medications (Trade) Dose Ordered Sig/[place] Route Start Time Stop Time Status Last Admin Dose Admin Sodium Chloride 1,000 ml @ 500 mls/hr Q2H STAT IV 08/11/17 15:26 08/11/17 17:25 AK 08/11/17 15:57 500 MLS/HR Hydromorphone HCl (Dilaudid Inj) 0.5 mg NOW STAT IV 08/11/17 15:28 08/11/17 15:30 DC 08/11/17 15:56 0.5 MG Ondansetron HCl (Zofran Inj) 4 mg NOW STAT IV 08/11/17 16:10 08/11/17 16:11 DC 08/11/17 16:21 4 MG Hydromorphone HCl (Dilaudid Inj) 0.5 mg NOW STAT IV 12/4/17 16:31 08/11/17 16:32 DC 08/11/17 16:47 0.5 MG Labetalol HCl (Normodyne IV) 20 mg NOW STAT IV 08/11/17 18:42 08/11/17 18:43 DC 08/11/17 19:16 20 MG Medical Decision Patient was seen and evaluated as above. She presents to us today with generalized pain, nausea vomiting and diarrhea times many days. She was seen here recently for such. She is end-stage renal disease and on dialysis. Last dialysis was on Friday. IV access was initiated, and the above workup was performed. She was given Dilaudid for pain. Zofran for nausea however only a 4 mg dose was given and she does have a prolonged QT identify a bedside EKG revealing a normal sinus rhythm rate of 82 bpm. she was feeling better after the pain medication was administered. No leukocytosis. Anemia with hemoglobin of 9.9. PTT along gait and at 40.7. Metabolic panel reveals hyponatremia, hypokalemia, BUN/creatinine elevated distant with what is expected from end- stage renal disease. Troponin negative. TSH normal. Urine reveals what is likely contaminated sample. test negative. Chest x-ray negative for acute process. Patient's blood pressure was elevated at believe secondary to not being able to tolerate by mouth blood pressure medication at home. Labetalol was administered. I did consult medicine and spoke with Dr. Saucedo. He recommended that I speak with the on-call emergency medicine nurse practitioner as well as the ICU for nuchal care consult. Nephrology recommended continuing dialysis with next scheduled regimen tomorrow. They can be consult. Critical care came to evaluate the patient please see their note. I was asked to order a CT scan of the patient's abdomen and pelvis per critical care team to further evaluate suspected etiology of her subjective fever to ensure that she does not have nephritis or an infected kidney stone. Results as above. Please refer to further documentation regarding the patient's stay. In evaluation treatment this patient the following differential diagnoses were entertained: FL, PE, electrolyte abnormality, among others. Impression Primary Impression: Generalized pain Additional Impressions: Anemia Hypokalemia CKD (chronic kidney disease) requiring chronic dialysis Hypertension Departure Information Dispostion Admitted as an inpatient Condition POOR Referrals Christen Galvez ,SandyNLacyP. (PCP) Patient Instructions My [facility] Problem Qualifiers
[2017-08-11 15:56] LABS: BASO % 0.3 %; BASO ABS # 0.02 K/uL (0-0.2); EOS % 1.8 %; EOS ABS # 0.12 K/uL (0-0.5); HEMATOCRIT 30.2 % (37-47); HEMOGLOBIN 9.9 g/dL (12.0-16.0); IG# 0.07 K/uL (0.00-0.02); LYMPH ABS # 1.67 K/uL (1.2-3.4); MEAN CORPUSCULAR HEMOGLOBIN 33.4 pg (25-34); MEAN CORPUSCULAR HGB CONC 32.8 g/dl (32-36); MEAN PLATELET VOLUME 9.3 fL (7.4-10.4); MONO % 13.3 %; MONO ABS # 0.89 K/uL (0.11-0.59); NEUT % 58.6 %; PLATELET COUNT 273 K/uL (130-400); RED CELL DISTRIBUTION WIDTH CV 15.1 % (11.5-14.5); RED CELL DISTRIBUTION WIDTH SD 55.7 fL (36.4-46.3); WHITE BLOOD COUNT 6.67 K/uL (4.8-10.8)
[2017-08-11 16:04] LABS: PTT PATIENT 40.7 SECONDS (21.0-31.0)
[2017-08-11] MEDS ORDERED: ONDANSETRON INJ 2 MG/ML 2 ML VIAL IV STA (16:10)
--- NOTE | 2017-08-11 16:17 | DIAGNOSTIC IMAGING REPORT ---
CHEST ONE VIEW PORTABLE CLINICAL HISTORY: dyspnea, generalized pain COMPARISON STUDY: 06/15/2017 FINDINGS: The heart is mildly enlarged. There is no failure. There is no focal pulmonary consolidation. There are no pleural effusions. Lung volumes are slightly diminished.[ IMPRESSION: No active disease in the chest. Electronically signed by: Eliazar Constantino M.D. 08/11/2017 4:16 PM Dictated Date/Time: 08/11/2017 4:15 PM
[2017-08-11 16:33] LABS: ALBUMIN 3.1 gm/dl (3.4-5.0); ALKALINE PHOSPHATASE 136 U/L (45-117); ALT/SGPT 15 U/L (12-78); AST/SGOT 15 U/L (15-37); BLOOD UREA NITROGEN 47 mg/dl (7-18); CALCIUM 7.8 mg/dl (8.5-10.1); CARBON DIOXIDE 22 mmol/L (21-32); CREATININE 9.28 mg/dl (0.60-1.20); GLUCOSE 79 mg/dl (70-99); POTASSIUM 3.2 mmol/L (3.5-5.1); SODIUM 130 mmol/L (136-145); TOTAL PROTEIN 7.8 gm/dl (6.4-8.2)
[2017-08-11] MEDS ORDERED: LABETALOL HCL IV 5 MG/ML 20ML IV STA ×2 (18:37→18:42)
--- NOTE | 2017-08-11 19:41 | History and Physical ---
History & Physical Date & Time of Service: Aug 11, 2017 at 19:40 Chief Complaint: Illness Primary Care Physician: Christen Galvez C.R.N.P. History of Present Illness Source: patient Astrid is a 36 yo F with end-stage renal disease from hypertensive nephrosclerosis, who receives dialysis //Fri, who presents with nausea and vomiting for over a week. She reports she has been unable to keep anything down for the last week. She reports she had a normal meal two weekends ago, though it was Thanksgiving around that time, and she had severe nausea, vomiting , and diarrhea daily since then. She reports she has felt incredibly weak the entire time but still went to dialysis. Her PCP thought she may have a UTI but she is anuric. She was finally able to create a urine sample on Friday and reports she had a UTI, and was started on abx for this. Per external med rec, this was Cipro 250mg BID PO. Since then she reports she has still been unable to keep anything down, including the antibiotic and her antihypertensives. She still reports constant diffuse abdominal pain. She is unable to localize a spot which hurts the most. She denied headache or visual changes. She reports her last watery stool was this morning. She denies any sick contacts. She reports a one time fever of 100.3 in the last few days. She denies chest pain or shortness of breath. She denies numbness or tingling to the arms or legs. Past Medical/Surgical History Medical Problems: (1) Abdominal pain Status: Resolved (2) Anemia Status: Chronic (3) Asthma Status: Chronic (4) End stage renal failure on dialysis Status: Chronic Surgical Problems: (1) History of section Status: Resolved Family History Diabetes mellitus FHx: heart disease Hypertension Social History Smoking Status: Former Smoker (stopped a few years ago) Drug Use: none Marital Status: single Housing status: lives with family (lives w/her two kids, age 13 and 10) Occupational Status: unemployed Immunizations History of Influenza Vaccine: Yes Influenza Vaccine Date: Aug 31, 2013 History of Tetanus Vaccine?: utd History of Pneumococcal: No History of Hepatitis B Vaccine: No Multi-Drug Resistant Organisms History of MDRO: No Allergies Coded Allergies: No Known Allergies (Verified , 06/15/17) Home Medications Scheduled Calcium Acetate (Phoslo 667 Mg), 667 MG PO TIDM Hydralazine HCl (Hydralazine HCl), 50 MG PO QID Labetalol Hcl (Labetalol Hcl), 400 MG PO BID Pantoprazole (Protonix), 40 MG PO BID Review of Systems See HPI for pertinent positives & negatives. A total of 10 systems reviewed and were otherwise negative. Physical Exam Vital Signs Date Time Temp Pulse Resp B/P (MAP) Pulse Ox O2 Delivery O2 Flow Rate FiO2 08/11/17 19:24 92 18 179/103 97 Room Air 08/11/17 18:05 88 18 236/137 99 Room Air 08/11/17 18:04 96 Room Air 08/11/17 17:00 86 20 209/130 98 Room Air 08/11/17 15:30 79 08/11/17 15:25 36.9 86 20 188/120 95 Room Air General Appearance: WD/WN, no apparent distress, + obese Head: normocephalic, atraumatic Eyes: normal inspection, PERRL ENT: normal ENT inspection, hearing grossly normal Neck: supple, no JVD Respiratory/Chest: lungs clear, normal breath sounds, no respiratory distress Cardiovascular: regular rate, rhythm, no edema, no JVD, no murmur, normal peripheral pulses Abdomen/GI: normal bowel sounds, soft, + tenderness (diffuse tenderness, unable to localize) Back: normal inspection, no CVA tenderness, no muscle spasm Extremities/Musculoskelatal: no calf tenderness, no pedal edema Neurologic/Psych: 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 II-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 nml as tested, no motor/sensory deficits, alert, normal mood/affect, normal reflexes, oriented x 3 Skin: no rash Diagnostics Laboratory Results Results Past 24 Hours Test 08/11/17 15:10 08/11/17 15:52 08/11/17 17:50 Range/Units White Blood Count 6.67 4.8-10.8 K/uL Red Blood Count 2.96 4.2-5.4 M/uL Hemoglobin 9.9 12.0-16.0 g/dL Hematocrit 30.2 37-47 % Mean Corpuscular Volume 102.0 80-100 fL Mean Corpuscular Hemoglobin 33.4 25-34 pg Mean Corpuscular Hemoglobin Concent 32.8 32-36 g/dl Platelet Count 273 130-400 K/uL Mean Platelet Volume 9.3 7.4-10.4 fL Neutrophils (%) (Auto) 58.6 % Lymphocytes (%) (Auto) 25.0 % Monocytes (%) (Auto) 13.3 % Eosinophils (%) (Auto) 1.8 % Basophils (%) (Auto) 0.3 % Neutrophils # (Auto) 3.90 1.4-6.5 K/uL Lymphocytes # (Auto) 1.67 1.2-3.4 K/uL Monocytes # (Auto) 0.89 0.11-0.59 K/uL Eosinophils # (Auto) 0.12 0-0.5 K/uL Basophils # (Auto) 0.02 0-0.2 K/uL RDW Standard Deviation 55.7 36.4-46.3 fL RDW Coefficient of Variation 15.1 11.5-14.5 % Immature Granulocyte % (Auto) 1.0 % Immature Granulocyte # (Auto) 0.07 0.00-0.02 K/uL Prothrombin Time 10.6 9.0-12.0 SECONDS Prothromb Time International Ratio 1.0 0.9-1.1 Activated Partial Thromboplast Time 40.7 21.0-31.0 SECONDS Partial Thromboplastin Ratio 1.6 Sodium Level 130 136-145 mmol/L Potassium Level 3.2 3.5-5.1 mmol/L Chloride Level 93 98-107 mmol/L Carbon Dioxide Level 22 21-32 mmol/L Anion Gap 15.0 3-11 mmol/L Blood Urea Nitrogen 47 7-18 mg/dl Creatinine 9.28 0.60-1.20 mg/dl Estimated GFR () 5.6 Estimated GFR (Non- 4.9 BUN/Creatinine Ratio 5.1 10-20 Random Glucose 79 70-99 mg/dl Calcium Level 7.8 8.5-10.1 mg/dl Magnesium Level 2.0 1.8-2.4 mg/dl Total Bilirubin 0.4 0.2-1 mg/dl Aspartate Amino Transf (AST/SGOT) 15 15-37 U/L Alanine Aminotransferase (ALT/SGPT) 15 12-78 U/L Alkaline Phosphatase 136 45-117 U/L Troponin I 0.029 0-0.045 ng/ml Total Protein 7.8 6.4-8.2 gm/dl Albumin 3.1 3.4-5.0 gm/dl Globulin 4.7 2.5-4.0 gm/dl Albumin/Globulin Ratio 0.7 0.9-2 Thyroid Stimulating Hormone (TSH) 0.435 0.300-4.500 uIu/ml Bedside Troponin I < 0.030 0-0.045 ng/ml Urine Color YELLOW Urine Appearance CLEAR CLEAR Urine pH 6.0 4.5-7.5 Urine Specific [place] 1.020 1.000-1.030 Urine Protein 2+ NEG Urine Glucose (UA) NEG NEG Urine Ketones NEG NEG Urine Occult Blood NEG NEG Urine Nitrite NEG NEG Urine Bilirubin NEG NEG Urine Urobilinogen NEG NEG Urine Leukocyte Esterase SMALL NEG Urine WBC (Auto) 10-30 0-5 /hpf Urine RBC (Auto) 5-10 0-4 /hpf Urine Hyaline Casts (Auto) 1-5 0-5 /lpf Urine Epithelial Cells (Auto) >30 0-5 /lpf Urine Bacteria (Auto) NEG NEG Urine Test NEG NEG Microbiology Results 08/11/17 Blood Culture, Received Pending 08/11/17 Blood Culture, Received Pending 08/11/17 Urine Culture, Received Pending Normal EKG (QTc prolonged) Impression Assessment and Plan 36 yo F with ESRD on dialysis who presents with nausea/vomiting/diarrhea/ abdominal pain precipitating hypertensive urgency from poor PO intake. Severe abdominal pain - DDx pyelonephritis vs cystitis vs gastroenteritis vs colitis - CT from ED pending - Culture from Friday reviewed, was E Coli, >100,000 CFU, pansensitive - Will switch to Rocephin IV daily - 1mg Dilaudid IV now. Please contact me if needs more. May consider a pain mx consult in AM if needed. - If has persistent diarrhea, will obtain a stool culture. - Avoid Zofran due to prolonged QTc, will provide Compazine PRN Hypertensive urgency - Goal SBP 170 overnight - Hydralazine 10mg IV PRN - Nephrology consult for dialysis tomorrow - Continue her home Labetalol and Hydralazine PO as tolerated Dispo: Admit to Tele VTE: SCDs Code status: Full Resident Physician Supervision Note: I was present with Dr. Renner during the history and exam. I discussed the case with the resident and agree with the findings and plan as documented in the note. Any exceptions or clarifications are listed here: 36 y/o F Hx HTN, ESRD - presently with primarily GI symptoms including abd pain , N/V/D - she had also reported a temp of 103 and is currently being treated for a UTI with Cipro On arrival to the ER her SBP was > 220. OE: AAO x 3 S1,2 R CTAB Diffusely tender abd without guarding or rebound No CCE P: SBP has improved with Hydralazine and Labetalol IV - will monitor on telemetry and treat with a goal of 160-180 overnight We will need to contact the dialysis service as she is due for dialysis AM and this will likely help with her BP Due to a reported fever and based on previous urine cultures, we will place her on Ceftriaxone in place of Cipro reg her abd pain - etiology is unclear - stool studies can be sent and we may need a GI or surgical eval if she does not improve. Documented By: Tom Balderas Resident Tracking Resident Involvement: Resident Care Provided Care Provided: Adult Hospital Medicine
[2017-08-11] MEDS ORDERED: HYDROmorphone INJ 1 MG/ML SYR IV STA (19:50)
[2017-08-11] MEDS ORDERED: ALUMINUM/MAGNESIUM/SIMETH (MAALOX MAX) 30 ML UDC PO PRN (20:00)
[2017-08-11] MEDS ORDERED: MAGNESIUM HYDROXIDE SUSP 30 ML UDC PO PRN (20:00)
--- NOTE | 2017-08-11 20:05 | Critical Care Consultation ---
Critical Care Consultation Date of Consultation: Aug 11, 2017. Attending Physician: Dr. Serrato Reason for Consultation: Intractable vomiting, malignant htn, ESRD History of Present Illness Astrid Gallardo is a 36yo A.A female with ESRD on HD. Pt was last dialyzed Friday per normal schedule. She reports since last Friday she has been vomiting and unable to keep medications down. On Friday she was asked for a urine sample. which due to her ESRD she was unable to provide until Friday. She states she was prescribed a BID antibiotic(Cipro 250mg per outpt records) for a UA that demonstrated trace blood/ketones, Large Leukocyte Esterase and 4+ bacteria. Pt does state she experiences this nausea and vomiting like this about once or twice a month. This particular time the body aches and a fever of 100.3 are what Her last visit to [facility] was Jun and prior to that March 2016. Last outpt visit was to Christen Galvez NP on 05/30/17. She states she is in the process of being worked up for this intermittent abd issue. She complains today of diffuse abd pain, malaise, and myalgias. Upon arrival to the ED, pt was found to have SBP ranging from 188-236 for which [facility] [place] possible [place]. However, when I arrived with Dr. Rodriguez to examine the pt her repeat pressure was 179/103; she had received 0.5mg of Dilaudid x 2 and no antihypertensives were yet administered. Discussion with the pt was had about her current prescription regimen. She stated she takes hydralazine BID and Labetalol QID as well as an ulcer medication (Prontonix) and her antibiotic(Cipro 250mg BID). Her pressures often run in the 135-150's when she isn't in pain. She states her family has a long history of HTN. Discussion was had with Dr. Renner and pt was to be admitted to telemetry. Past Medical/Surgical History Medical Problems: Acute UTI Abdominal pain Arthralgia Asthma Chronic Back Pain CKD (chronic kidney disease) requiring chronic dialysis Depression with anxiety Dysmenorrhea Eczema Endometriosis End stage renal failure on dialysis Fatigue Gastric Ulcer GERD Heart Murmur HTN Iron Deficiency Anemia LVH Psoriasis Uterine Enlargement Vit D Deficiency Obesity Surgical Problems: Abdominoplasty section Family History Diabetes mellitus FHx: heart disease Hypertension Social History Smoking Status: Former Smoker (stopped a few years ago) Drug Use: none Marital Status: single Housing Status: lives with family Occupation Status: unemployed Allergies Coded Allergies: No Known Allergies (Verified , 06/15/17) Home Medications Scheduled Calcium Acetate (Phoslo 667 Mg), 667 MG PO TIDM Hydralazine HCl (Hydralazine HCl), 50 MG PO QID Labetalol Hcl (Labetalol Hcl), 400 MG PO BID Pantoprazole (Protonix), 40 MG PO BID Current Inpatient Medications Current Inpatient Medications Medications (Trade) Dose Ordered Sig/[place] Route Start Time Stop Time Status Last Admin Dose Admin Nitroglycerin (Nitro-Dur 0.1 Mg/Hr Patch) 1 patch NOW TD 08/11/17 20:00 09/10/17 19:59 UNV Hydromorphone HCl (Dilaudid Inj) 1 mg NOW STAT IV 08/11/17 19:50 08/11/17 19:51 UNV Heparin Sodium (Porcine) (Heparin Sq 5000 Unit/0.5ml) 5,000 unit Q12 SQ 08/11/17 21:00 09/10/17 20:59 UNV Acetaminophen (Tylenol Tab) 650 mg Q4H PRN PO 08/11/17 20:00 09/10/17 19:59 UNV Al Hydrox/Mg Hydrox/Simethicone (Maalox Max Susp) 15 ml Q4H PRN PO 08/11/17 20:00 09/10/17 19:59 UNV Magnesium Hydroxide (Milk Of Magnesia Susp) 30 ml Q12H PRN PO 08/11/17 20:00 09/10/17 19:59 UNV Calcium Acetate (Phoslo Cap) 667 mg TIDM PO 08/12/17 08:00 09/11/17 07:59 UNV Hydralazine HCl (Apresoline Tab) 50 mg QID PO 08/11/17 21:00 09/10/17 20:59 UNV Labetalol HCl (Normodyne Tab) 400 mg BID PO 08/11/17 21:00 09/10/17 20:59 UNV Pantoprazole Sodium (Protonix Tab) 40 mg BID PO 08/11/17 21:00 09/10/17 20:59 UNV Hydralazine HCl (HydrALAZINE INJ) 10 mg Q6H PRN IV. 08/11/17 20:00 09/10/17 19:59 UNV Prochlorperazine Edisylate 5 mg/ Syringe 5 ml @ 5 mls/min Q6H PRN IV 08/11/17 20:00 09/10/17 19:59 UNV Review of Systems 12 systems reviewed and negative other than previously mentioned in the HPI. Physical Exam Date Time Temp Pulse Resp B/P (MAP) Pulse Ox O2 Delivery O2 Flow Rate FiO2 08/11/17 19:24 92 18 179/103 97 Room Air 08/11/17 18:05 88 18 236/137 99 Room Air 08/11/17 18:04 96 Room Air 08/11/17 17:00 86 20 209/130 98 Room Air 08/11/17 15:30 79 08/11/17 15:25 36.9 86 20 188/120 95 Room Air Vital Signs - as noted Laboratory Data - as noted Physical Exam: General - NAD Eyes - PERRL, EOMI No icterus, gaze conjugate ENT - Mucosa dry, no lesions or candidiasis Neck - Supple, trachea midline, no masses or lymphadenopathy, no JVD or bruits Lungs - No paradoxical chest wall movement, clear to auscultation bilaterally, no wheezes, rales, or rhonchi Heart - Reg rate and rhythm, No [murmur], rubs, clicks, or gallops appreciated Abdomen - BS present, no bruits noted, tympanic to percussion, soft, obese, diffuse tenderness, mildly distended, no organomegaly. Mild CVA tenderness Extremities - Pedal pulses intact Neuro - A&OX 4 Strength extremities equal and appropriate bilaterally Reflexes: Bicep, brachioradialis, patellar, and plantar normal and equal CN:PERRL, EOMI, no facial asymmetry, uvula/tongue midline Laboratory Results Last 24 Hours Test 08/11/17 15:10 08/11/17 15:52 08/11/17 17:50 White Blood Count 6.67 K/uL Red Blood Count 2.96 M/uL Hemoglobin 9.9 g/dL Hematocrit 30.2 % Mean Corpuscular Volume 102.0 fL Mean Corpuscular Hemoglobin 33.4 pg Mean Corpuscular Hemoglobin Concent 32.8 g/dl Platelet Count 273 K/uL Mean Platelet Volume 9.3 fL Neutrophils (%) (Auto) 58.6 % Lymphocytes (%) (Auto) 25.0 % Monocytes (%) (Auto) 13.3 % Eosinophils (%) (Auto) 1.8 % Basophils (%) (Auto) 0.3 % Neutrophils # (Auto) 3.90 K/uL Lymphocytes # (Auto) 1.67 K/uL Monocytes # (Auto) 0.89 K/uL Eosinophils # (Auto) 0.12 K/uL Basophils # (Auto) 0.02 K/uL RDW Standard Deviation 55.7 fL RDW Coefficient of Variation 15.1 % Immature Granulocyte % (Auto) 1.0 % Immature Granulocyte # (Auto) 0.07 K/uL Prothrombin Time 10.6 SECONDS Prothromb Time International Ratio 1.0 Activated Partial Thromboplast Time 40.7 SECONDS Partial Thromboplastin Ratio 1.6 Sodium Level 130 mmol/L Potassium Level 3.2 mmol/L Chloride Level 93 mmol/L Carbon Dioxide Level 22 mmol/L Anion Gap 15.0 mmol/L Blood Urea Nitrogen 47 mg/dl Creatinine 9.28 mg/dl Estimated GFR () 5.6 Estimated GFR (Non- 4.9 BUN/Creatinine Ratio 5.1 Random Glucose 79 mg/dl Calcium Level 7.8 mg/dl Magnesium Level 2.0 mg/dl Total Bilirubin 0.4 mg/dl Aspartate Amino Transf (AST/SGOT) 15 U/L Alanine Aminotransferase (ALT/SGPT) 15 U/L Alkaline Phosphatase 136 U/L Troponin I 0.029 ng/ml Total Protein 7.8 gm/dl Albumin 3.1 gm/dl Globulin 4.7 gm/dl Albumin/Globulin Ratio 0.7 Thyroid Stimulating Hormone (TSH) 0.435 uIu/ml Bedside Troponin I < 0.030 ng/ml Urine Color YELLOW Urine Appearance CLEAR Urine pH 6.0 Urine Specific Philip 1.020 Urine Protein 2+ Urine Glucose (UA) NEG Urine Ketones NEG Urine Occult Blood NEG Urine Nitrite NEG Urine Bilirubin NEG Urine Urobilinogen NEG Urine Leukocyte Esterase SMALL Urine WBC (Auto) 10-30 /hpf Urine RBC (Auto) 5-10 /hpf Urine Hyaline Casts (Auto) 1-5 /lpf Urine Epithelial Cells (Auto) >30 /lpf Urine Bacteria (Auto) NEG Urine Test NEG Diagnostic Results CHEST ONE VIEW PORTABLE CLINICAL HISTORY: dyspnea, generalized pain COMPARISON STUDY: 06/15/2017 FINDINGS: The heart is mildly enlarged. There is no failure. There is no focal pulmonary consolidation. There are no pleural effusions. Lung volumes are slightly diminished.[ IMPRESSION: No active disease in the chest. Electronically signed by: Eliazar Constantino M.D. 08/11/2017 4:16 PM Dictated Date/Time: 08/11/2017 4:[address] ABD/PELVIS IV CONTRAST ONLY CLINICAL HISTORY: Generalized abdominal pain and fever COMPARISON STUDY: 06/16/2017 TECHNIQUE: Following the IV administration of 90 mL of Optiray-320, CT scan of the abdomen and pelvis was performed from the lung bases to the proximal femurs. Images are reviewed in the axial, sagittal, and coronal planes. IV contrast was administered. Contrast opacification is somewhat limited. The technicians were instructed to evaluate the patient for a possible contrast extravasation. A dose lowering technique was utilized adhering to the principles of ALARA. CT DOSE: 915.98 mGy.cm FINDINGS: Lower chest: The heart is normal in size and configuration, without pericardial effusion. The lung bases and pleural spaces are clear. Liver: The contrast-enhanced liver is normal in size, contour, and attenuation. There is no intrahepatic biliary ductal dilatation. The hepatic veins and portal veins are patent. Gallbladder: Unremarkable. Spleen: Normal in size and attenuation. Pancreas: Unremarkable. Adrenal glands: There is stable adrenal gland thickening Kidneys: There is an 8mm lower pole left renal calculus. There is no hydronephrosis. No solid renal masses are visualized. There is bilateral renal atrophy Bowel: There are no transition zones indicate bowel obstruction. Mild gastric wall thickening is likely secondary to underdistention. There is no acute diverticulitis. The appendix appears normal Peritoneum: There is no intraperitoneal free air or abdominal ascites. Vasculature: The abdominal aorta is normal in course and caliber. Adenopathy: None. Pelvic viscera: The bladder, and pelvic viscera are unremarkable. Skeletal structures: There is bilateral sacroiliitis. IMPRESSION: 1. No evidence of bowel obstruction. No evidence of free air 2. Left-sided nephrolithiasis. No evidence of hydronephrosis 3. Normal appendix. No evidence of acute diverticulitis 4. Bilateral sacroiliitis Electronically signed by: Eliazar Constantino M.D. 08/11/2017 8:15 PM Dictated Date/Time: 08/11/2017 8:06 PM Assessment & Plan (1) Hypertension (2) Chronic renal failure (3) Abdominal pain (4) Acute renal failure (5) CKD (chronic kidney disease) requiring chronic dialysis (6) Urinary tract infection (7) Obesity (8) Vomiting (9) Diarrhea (10) Gastric ulcer (11) Hypertensive urgency (12) Intractable abdominal pain Consulted for htn of SBP in the 200's prior to treatment with anti- hypertensives. Pt responded to pain medication and later a one time dose of IV Labetalol 20mg. Pt does not currently require CCM and thus is being admitted to telemetry. Pt should continue home dose antihypertensive with anti-nausea medications as allowed by her QTc. Monitor QTc closely. Should she require additional treatment, would consider Clonidine transdermally in addition. Should pts SBP rebound and remain above 180 despite PO and transdermal medications, please recontact CCM for transfer to unit for possible intravenous anti-hypertensive infusion. PLAN: Neuro: Dilaudid for pain control when necessary Resp: Supplemental oxygen as required CV: HTN as mentioned above. Fluids/Renal: Dialysis tomorrow ID: Would suggest continuing outpt PO Cipro, if nausea has subsided. Otherwise , IV is indicated. GI/Nutrition: Renal Diet Endocrine: Accu-Checks per protocol, started insulin infusion for 2 blood sugars greater than 180 CCT: 0 Minutes; Level 5 inpatient billing. This time is exclusive of all separately billable procedures. Thank you for involving us in the care of this patient. Please refer to Dr. Delio Rodriguez's addendum for further recommendations. I have personally evaluated and examined this patient. I agree with assessment and plan of Cora Tineo PA-C.
[2017-08-11] MEDS ORDERED: HYDROmorphone INJ 1 MG/ML SYR ONE (20:06)
[2017-08-11] MEDS ORDERED: OPTIRAY 320 IV PRN (20:15)
--- NOTE | 2017-08-11 20:16 | DIAGNOSTIC IMAGING REPORT ---
CT ABD/PELVIS IV CONTRAST ONLY CLINICAL HISTORY: Generalized abdominal pain and fever COMPARISON STUDY: 06/16/2017 TECHNIQUE: Following the IV administration of 90 mL of Optiray-320, CT scan of the abdomen and pelvis was performed from the lung bases to the proximal femurs. Images are reviewed in the axial, sagittal, and coronal planes. IV contrast was administered. Contrast opacification is somewhat limited. The technicians were instructed to evaluate the patient for a possible contrast extravasation. A dose lowering technique was utilized adhering to the principles of ALARA. CT DOSE: 915.98 mGy.cm FINDINGS: Lower chest: The heart is normal in size and configuration, without pericardial effusion. The lung bases and pleural spaces are clear. Liver: The contrast-enhanced liver is normal in size, contour, and attenuation. There is no intrahepatic biliary ductal dilatation. The hepatic veins and portal veins are patent. Gallbladder: Unremarkable. Spleen: Normal in size and attenuation. Pancreas: Unremarkable. Adrenal glands: There is stable adrenal gland thickening Kidneys: There is an 8mm lower pole left renal calculus. There is no hydronephrosis. No solid renal masses are visualized. There is bilateral renal atrophy Bowel: There are no transition zones indicate bowel obstruction. Mild gastric wall thickening is likely secondary to underdistention. There is no acute diverticulitis. The appendix appears normal Peritoneum: There is no intraperitoneal free air or abdominal ascites. Vasculature: The abdominal aorta is normal in course and caliber. Adenopathy: None. Pelvic viscera: The bladder, and pelvic viscera are unremarkable. Skeletal structures: There is bilateral sacroiliitis. IMPRESSION: 1. No evidence of bowel obstruction. No evidence of free air 2. Left-sided nephrolithiasis. No evidence of hydronephrosis 3. Normal appendix. No evidence of acute diverticulitis 4. Bilateral sacroiliitis Electronically signed by: Eliazar Constantino M.D. 08/11/2017 8:15 PM Dictated Date/Time: 08/11/2017 8:06 PM
[2017-08-11 21:00] VITALS: Ht 162.6 cm; Wt 102.3 kg
[2017-08-11] MEDS: HydrALAZINE HCL 20 MG/ML VIAL IV. PRN (21:10)
[2017-08-11 21:15] VITALS: BP 169/113; PULSE 83; TEMP 36.4; O2SAT 97
[2017-08-11 21:23] VITALS: BP 191/135
[2017-08-11] MEDS ORDERED: NITROGLYCERIN 0.1 MG/HR PATCH TD STA (21:38)
[2017-08-11] MEDS ORDERED: LABETALOL HCL IV 5 MG/ML 20ML IV PRN (21:45)
[2017-08-11] MEDS: PANTOprazole SOD 40 MG TAB PO SCH (23:29)
[2017-08-11] MEDS: LABETALOL HCL 200 MG TAB PO SCH (23:30)
[2017-08-11] MEDS: CEFTRIAXONE SOD INJ 1 GM in DEXTROSE 5% ADD-VANTAGE 50ML 50 ML IV SCH (23:31)
[2017-08-11] MEDS: HEPARIN SOD 5000 UNIT/0.5 ML CARP SQ SCH (23:32)
[2017-08-12] VITALS (29 sets, daily range): BP systolic 125–190; BP diastolic 75–117; PULSE 73–93; TEMP 36.4–37.8; O2SAT 93–100
[2017-08-12] MEDS ORDERED: PNEUMOCOCCAL ADMINISTRATION CHARGE ONE (01:45)
[2017-08-12] MEDS ORDERED: PNEUMOCOCCAL POLYSACCHARIDES 25 MCG/0.5 ML VIAL/SYR IM. ONE (01:45)
[2017-08-12] MEDS ORDERED: SUMATRIPTAN SUCCINATE 50 MG TAB PO STA (02:23)
--- NOTE | 2017-08-12 02:34 | Progress Note ---
Progress Note Date of Service Aug 12, 2017. Progress Note Resident Night Progress Note I admitted the patient, and Dr Balderas and I had concerns about the patient seeking pain medications as well. CT was going to be obtained so we provided her a one-time 1mg dose of dilaudid IV which she received around 8pm. At 1142 PM I received a [employer] message stating that the patient would like to come speak with me. I asked if the RN could clarify why the patient wanted to speak with me , and was told the patient just wanted to speak with me. I informed them that I was doing an admission and would need to triage issues like this so having a topic for discussion would be helpful. I did not receive a reply. Two hours later, I received a message from another RN stating the patient was in severe pain and asking me to come up to see her. I immediately went to see the patient , the patient reported she had a severe migraine at the back of her head and had new back pain, due to a delay in not getting any pain medications since I would not come see her, and by a delay in not receiving antibiotics so now her back hurt more. I asked her to characterize her headache, which was sharp, at the back of her head, and constant. Her back pain was in the lumbar region, more dull, but also constant. I discussed trying a migraine medication with her and she agreed. I ordered a dose of Imitrex as well as dilaudid 0.5mg IV to be provided q4h. Day team to please r/v patients pain medication regime, and consider a consult to pain management if needed.
[2017-08-12] MEDS: HYDROmorphone INJ 0.5 MG/0.5 ML SYR IV PRN ×4 (03:43→19:12)
[2017-08-12] MEDS: PANTOprazole SOD 40 MG TAB PO SCH ×2 (08:22→20:04)
[2017-08-12] MEDS: CALCIUM ACETATE 667MG GELCAP PO SCH ×3 (08:23→16:45)
[2017-08-12] MEDS: LABETALOL HCL 200 MG TAB PO SCH ×2 (08:24→20:05)
[2017-08-12] MEDS: HEPARIN SOD 5000 UNIT/0.5 ML CARP SQ SCH ×2 (08:27→21:24)
[2017-08-12 09:19] LABS: BASO % 0.4 %; BASO ABS # 0.02 K/uL (0-0.2); EOS % 3.2 %; EOS ABS # 0.16 K/uL (0-0.5); HEMOGLOBIN 9.2 g/dL (12.0-16.0); IG# 0.07 K/uL (0.00-0.02); LYMPH % 25.2 %; LYMPH ABS # 1.25 K/uL (1.2-3.4); MEAN CELL VOLUME 101.8 fL (80-100); MEAN CORPUSCULAR HEMOGLOBIN 33.5 pg (25-34); MEAN CORPUSCULAR HGB CONC 32.9 g/dl (32-36); MEAN PLATELET VOLUME 8.6 fL (7.4-10.4); MONO % 10.9 %; MONO ABS # 0.54 K/uL (0.11-0.59); NEUT % 58.9 %; NEUT ABS # 2.92 K/uL (1.4-6.5); PLATELET COUNT 231 K/uL (130-400); RED CELL DISTRIBUTION WIDTH CV 15.1 % (11.5-14.5); RED CELL DISTRIBUTION WIDTH SD 55.8 fL (36.4-46.3); WHITE BLOOD COUNT 4.96 K/uL (4.8-10.8)
[2017-08-12 10:04] LABS: CALCIUM 7.2 mg/dl (8.5-10.1); CREATININE 10.5 mg/dl (0.60-1.20); POTASSIUM 3.4 mmol/L (3.5-5.1)
--- NOTE | 2017-08-12 11:35 | Nephrology Consultation ---
Nephrology Consultation Date & Providers Date of Consultation: Aug 12, 2017. Primary Care Provider: Christen Galvez C.R.N.P. Referring Provider: Reason for Consultation Management of hemodialysis for patient with end-stage renal disease while inpatient. History of Present Illness Astrid is a 34-year-old young female with past medical history significant for poorly-controlled hypertension, end-stage renal disease secondary to hypertensive nephrosclerosis, obesity and asthma admitted to the hospital with an episode of possible UTI vs gastroenteritis. Nephrologic consult was requested for management of hemodialysis while in the hospital. Electronic medical records including labs and imaging personally reviewed. She has been feeling poorly over last almost weak with dysuria, nausea, and abdominal pain. Did not have any vomiting, diarrhea, fever or chills. As her symptom slowly worsened she was seen by her PCP and started on outpatient antibiotic however by the time she received antibiotic she was feeling much worse and presented to the emergency room for further evaluation. Urinalysis done as an outpatient showed UTI with E coli. She had similar symptom over last few months and had several hospital admission and workup has been unremarkable. CT abdomen and pelvis on admission was otherwise unremarkable. She was started on ceftriaxone IV . Abdominal pain and nausea started to improve. She denied any chest pain or shortness of breath. On admission she was found to be in hypertensive urgency which slightly improved with IV hydralazine but blood pressure still staying around the 180s to 190s. Denied any headache or visual changes. Her blood pressure usually runs high and her inter dialytic weight gain around 5-6 kg. She is due for dialysis today. Astrid has end-stage renal disease secondary to hypertensive nephropathy currently she gets dialysis via right radiocephalic AV fistula ( placed in August 30, 2013) at [facility] on Friday, , Friday. She has history of poorly-controlled hypertension and high the interdialytic weight gain due to dietary noncompliance. She missed dialysis last Friday as she was not feeling well and was having nausea, vomiting and diarrhea. Allergies Coded Allergies: No Known Allergies (Verified , 06/15/17) Inpatient Medications Current Inpatient Medications Medications (Trade) Dose Ordered Sig/[place] Route Start Time Stop Time Status Last Admin Dose Admin Heparin Sodium (Porcine) (Heparin Sq 5000 Unit/0.5ml) 5,000 unit Q12H SQ 08/11/17 22:00 09/10/17 21:59 08/12/17 08:27 5,000 UNIT Acetaminophen (Tylenol Tab) 650 mg Q4H PRN PO 08/11/17 20:00 09/10/17 19:59 Al Hydrox/Mg Hydrox/Simethicone (Maalox Max Susp) 15 ml Q4H PRN PO 08/11/17 20:00 09/10/17 19:59 Magnesium Hydroxide (Milk Of Magnesia Susp) 30 ml Q12H PRN PO 08/11/17 20:00 09/10/17 19:59 Calcium Acetate (Phoslo Cap) 667 mg TIDM PO 08/12/17 07:30 09/11/17 07:59 08/12/17 08:23 667 MG Hydralazine HCl (Apresoline Tab) 50 mg QID PO 08/11/17 21:00 09/10/17 20:59 08/12/17 08:23 50 MG Labetalol HCl (Normodyne Tab) 400 mg BID PO 08/11/17 21:00 09/10/17 20:59 08/12/17 08:24 400 MG Pantoprazole Sodium (Protonix Tab) 40 mg BID PO 08/11/17 21:00 09/10/17 20:59 08/12/17 08:22 40 MG Hydralazine HCl (HydrALAZINE INJ) 10 mg Q6H PRN IV. 08/11/17 20:00 09/10/17 19:59 08/11/17 21:10 10 MG Prochlorperazine Edisylate 5 mg/ Syringe 5 ml @ 5 mls/min Q6H PRN IV 08/11/17 20:00 09/10/17 19:59 Ioversol (Optiray 320) 90 ml UD PRN IV 08/11/17 20:15 08/15/17 20:14 Ceftriaxone Sodium 1 gm/ Dextrose 50 ml @ 100 mls/hr Q24H IV 08/11/17 22:00 08/21/17 21:59 08/11/17 23:31 100 MLS/HR Labetalol HCl (Normodyne IV) 10 mg Q1H PRN IV 08/11/17 21:45 09/10/17 21:44 Hydromorphone HCl (Dilaudid Inj) 0.5 mg Q4H PRN IV 08/12/17 02:30 08/26/17 02:29 08/12/17 08:30 0.5 MG Family History Diabetes mellitus FHx: heart disease Hypertension Social History Smoking Status: Never Smoker Drug Use: none Marital Status: single Housing Status: lives with family (lives w/her two kids, age 13 and 10) Occupation: unemployed Review of Systems A complete review of systems was performed. Pertinent positives are noted above. All other systems are negative. Physical Exam Date Time Temp Pulse Resp B/P (MAP) Pulse Ox O2 Delivery O2 Flow Rate FiO2 08/12/17 08:00 36.7 75 16 182/114 (136) 96 Room Air 08/12/17 08:00 93 Room Air 08/12/17 04:00 36.7 78 18 176/105 (128) 93 Room Air 08/12/17 04:00 Room Air 08/12/17 03:33 36.4 83 18 169/113 08/12/17 00:58 36.9 81 17 153/81 (105) 99 Room Air 08/12/17 00:00 Room Air 08/11/17 21:23 191/135 (153) 08/11/17 21:15 36.4 83 18 169/113 (131) 97 Room Air 08/11/17 21:00 Room Air 08/11/17 20:12 18 209/118 97 Room Air 08/11/17 19:24 92 18 179/103 97 Room Air 08/11/17 18:05 88 18 236/137 99 Room Air 08/11/17 18:04 96 Room Air 08/11/17 17:00 86 20 209/130 98 Room Air 08/11/17 15:30 79 08/11/17 15:25 36.9 86 20 188/120 95 Room Air GENERAL: Young female, AAA x 3, pleasant, healthy-appearing, not in any distress. HEENT: Atraumatic, normocephalic. NECK: Supple, no JVD, no carotid bruit appreciated. ENT: No sinus tenderness MOUTH and THROAT: Moist oral mucosa, no oral ulcer or pharyngeal erythema RESPIRATORY: Normal breathing efforts, no accessory muscle use, clear to auscultation bilaterally, no wheezes or rales. CARDIOVASCULAR: S1, S2 normal, rate rhythm regular. ABDOMEN: Soft, nontender, positive bowel sound. MUSCULOSKELETAL: No CVA tenderness. No joint swelling, erythema or tenderness. Normal range of motion. SKIN: No skin rash EXTREMITY: No lower extremity edema NEURO: No gross focal neurological deficit, speech fluent. PSYCHIATRY: Normal mood and judgment Laboratory Results Last 24 Hours Test 08/11/17 15:10 08/11/17 15:52 08/11/17 17:50 08/12/17 08:57 White Blood Count 6.67 K/uL 4.96 K/uL Red Blood Count 2.96 M/uL 2.75 M/uL Hemoglobin 9.9 g/dL 9.2 g/dL Hematocrit 30.2 % 28.0 % Mean Corpuscular Volume 102.0 fL 101.8 fL Mean Corpuscular Hemoglobin 33.4 pg 33.5 pg Mean Corpuscular Hemoglobin Concent 32.8 g/dl 32.9 g/dl Platelet Count 273 K/uL 231 K/uL Mean Platelet Volume 9.3 fL 8.6 fL Neutrophils (%) (Auto) 58.6 % 58.9 % Lymphocytes (%) (Auto) 25.0 % 25.2 % Monocytes (%) (Auto) 13.3 % 10.9 % Eosinophils (%) (Auto) 1.8 % 3.2 % Basophils (%) (Auto) 0.3 % 0.4 % Neutrophils # (Auto) 3.90 K/uL 2.92 K/uL Lymphocytes # (Auto) 1.67 K/uL 1.25 K/uL Monocytes # (Auto) 0.89 K/uL 0.54 K/uL Eosinophils # (Auto) 0.12 K/uL 0.16 K/uL Basophils # (Auto) 0.02 K/uL 0.02 K/uL RDW Standard Deviation 55.7 fL 55.8 fL RDW Coefficient of Variation 15.1 % 15.1 % Immature Granulocyte % (Auto) 1.0 % 1.4 % Immature Granulocyte # (Auto) 0.07 K/uL 0.07 K/uL Prothrombin Time 10.6 SECONDS Prothromb Time International Ratio 1.0 Activated Partial Thromboplast Time 40.7 SECONDS Partial Thromboplastin Ratio 1.6 Sodium Level 130 mmol/L 133 mmol/L Potassium Level 3.2 mmol/L 3.4 mmol/L Chloride Level 93 mmol/L 96 mmol/L Carbon Dioxide Level 22 mmol/L 22 mmol/L Anion Gap 15.0 mmol/L 15.0 mmol/L Blood Urea Nitrogen 47 mg/dl 51 mg/dl Creatinine 9.28 mg/dl 10.50 mg/dl Estimated GFR () 5.6 4.9 Estimated GFR (Non- 4.9 4.2 BUN/Creatinine Ratio 5.1 4.8 Random Glucose 79 mg/dl 79 mg/dl Calcium Level 7.8 mg/dl 7.2 mg/dl Magnesium Level 2.0 mg/dl Total Bilirubin 0.4 mg/dl Aspartate Amino Transf (AST/SGOT) 15 U/L Alanine Aminotransferase (ALT/SGPT) 15 U/L Alkaline Phosphatase 136 U/L Troponin I 0.029 ng/ml Total Protein 7.8 gm/dl Albumin 3.1 gm/dl Globulin 4.7 gm/dl Albumin/Globulin Ratio 0.7 Thyroid Stimulating Hormone (TSH) 0.435 uIu/ml Bedside Troponin I < 0.030 ng/ml Urine Color YELLOW Urine Appearance CLEAR Urine pH 6.0 Urine Specific [place] 1.020 Urine Protein 2+ Urine Glucose (UA) NEG Urine Ketones NEG Urine Occult Blood NEG Urine Nitrite NEG Urine Bilirubin NEG Urine Urobilinogen NEG Urine Leukocyte Esterase SMALL Urine WBC (Auto) 10-30 /hpf Urine RBC (Auto) 5-10 /hpf Urine Hyaline Casts (Auto) 1-5 /lpf Urine Epithelial Cells (Auto) >30 /lpf Urine Bacteria (Auto) NEG Urine Test NEG Est Creatinine Clear Calc Drug Dose 8.5 ml/min Impression (1) End stage renal failure on dialysis (2) Hypertensive urgency (3) Urinary tract infection (4) Secondary hyperparathyroidism of renal origin (5) Anemia 36 y old female with history of end-stage renal disease secondary to hypertensive nephrosclerosis,on hemodialysis Friday, , Friday via right radiocephalic AV fistula at [place] [facility] unit. Admitted with urinary tract infection with E coli, failed outpatient antibiotic. She has history of high weight gain and poorly-controlled HTN and dietary noncompliance. Today she is due for dialysis and currently blood pressure running high. Overall she feels slightly better, nausea and abdominal pain improved. Did have any episode of vomiting or diarrhea. Denies dysuria. Electrolyte acceptable. Recommendations --plan for hemodialysis this morning as her regular schedule, aim for 4 liters UF, will run with 3 K bath - avoid any further IV fluid --hopefully antibiotic can be switched to orally soon. --continued Nephrocaps and renal diet --dose medications for GFR less than 10 --continue on current antihypertensive medications and low-salt diet. --MARIO 4000 units x 1 dose today with dialysis. --continue on phosphate binders with meals. Thank you for allowing me to participate in your patient's care. It was a pleasure to see Astrid.
[2017-08-12] MEDS ORDERED: POTASSIUM CHLORIDE 20 MEQ TABCR PO ONE (11:45)
--- NOTE | 2017-08-12 15:10 | Hospitalist Progress Note ---
Hospitalist Progress Note Date of Service Aug 12, 2017. (Cele Larson .MICHAELA) Subjective Pt evaluation today including: conversation w/ patient, physical exam, chart review, lab review, review of inpatient medication list Ms. Gallardo continues to have a headache which had some improvement with dilaudid this morning but continues to have pain in her occiput that extends over her head to her eyes. She is not vomiting or nauseas and has not vomited since last night. She has some diarrhea before she came in but has not had it since. She is currently having dialysis and is tolerating well. BP are improving. ROS Constitutional: no chills, aches, sweats or fever Respiratory: no sob,cough, sputum, or wheezing Cardiac: no chest pain, palpitations, edema, orthopnea or lightheadedness GI: see HPI : no dysuria or hesitancy Extremities: no joint pain or weakness Skin: no rash All Other Systems: Reviewed and Negative (Cele Larson CRNP) Medications Medications Administered Medications (Trade) Dose Ordered Sig/[place] Route Start Time Stop Time Status Last Admin Dose Admin Sodium Chloride 1,000 ml @ 500 mls/hr Q2H STAT IV 08/11/17 15:26 08/11/17 17:25 DC 08/11/17 15:57 500 MLS/HR Hydromorphone HCl (Dilaudid Inj) 0.5 mg NOW STAT IV 08/11/17 15:28 08/11/17 15:30 DC 08/11/17 15:56 0.5 MG Ondansetron HCl (Zofran Inj) 4 mg NOW STAT IV 08/11/17 16:10 08/11/17 16:11 DC 08/11/17 16:21 4 MG Hydromorphone HCl (Dilaudid Inj) 0.5 mg NOW STAT IV 08/11/17 16:31 08/11/17 16:32 DC 08/11/17 16:47 0.5 MG Labetalol HCl (Normodyne IV) 20 mg NOW STAT IV 08/11/17 18:42 08/11/17 18:43 DC 08/11/17 19:16 20 MG Nitroglycerin (Nitro-Dur 0.1 Mg/Hr Patch) 1 patch NOW STAT TD 08/11/17 21:38 08/11/17 21:39 DC 08/11/17 23:30 1 PATCH Heparin Sodium (Porcine) (Heparin Sq 5000 Unit/0.5ml) 5,000 unit Q12H SQ 08/11/17 22:00 09/10/17 21:59 08/12/17 08:27 5,000 UNIT Calcium Acetate (Phoslo Cap) 667 mg TIDM PO 08/12/17 07:30 09/11/17 07:59 08/12/17 08:23 667 MG Hydralazine HCl (Apresoline Tab) 50 mg QID PO 08/11/17 21:00 09/10/17 20:59 08/12/17 13:59 50 MG Labetalol HCl (Normodyne Tab) 400 mg BID PO 08/11/17 21:00 09/10/17 20:59 08/12/17 08:24 400 MG Pantoprazole Sodium (Protonix Tab) 40 mg BID PO 08/11/17 21:00 09/10/17 20:59 08/12/17 08:22 40 MG Hydralazine HCl (HydrALAZINE INJ) 10 mg Q6H PRN IV. 08/11/17 20:00 09/10/17 19:59 08/11/17 21:10 10 MG Hydromorphone HCl (Dilaudid Inj) 1 mg STK-MED ONCE .ROUTE 08/11/17 20:06 08/11/17 20:07 DC 08/11/17 20:08 1 MG Ceftriaxone Sodium 1 gm/ Dextrose 50 ml @ 100 mls/hr Q24H IV 08/11/17 22:00 08/21/17 21:59 08/11/17 23:31 100 MLS/HR Miscellaneous (Remove Nitro-Dur Patch) 1 ea TODAY@1000 N/A 08/12/17 10:00 08/12/17 10:01 DC 08/12/17 10:00 1 EA Sumatriptan Succinate (Imitrex Tab) 50 mg ONE STAT PO 08/12/17 02:23 08/12/17 02:29 DC 08/12/17 03:06 50 MG Hydromorphone HCl (Dilaudid Inj) 0.5 mg Q4H PRN IV 08/12/17 02:30 08/26/17 02:29 08/12/17 13:59 0.5 MG Potassium Chloride (Klor-Con Tab) 20 meq 1145 ONCE PO 08/12/17 11:45 08/12/17 11:46 DC 08/12/17 13:59 20 MEQ (Cele Larson, MICHAELA) Objective Vital Signs Date Time Temp Pulse Resp B/P (MAP) Pulse Ox O2 Delivery O2 Flow Rate FiO2 08/12/17 14:30 82 149/108 08/12/17 14:15 83 149/111 08/12/17 14:00 86 147/102 08/12/17 13:45 85 140/99 08/12/17 13:30 86 157/87 08/12/17 13:15 79 130/88 08/12/17 13:00 82 140/94 08/12/17 12:45 79 130/88 08/12/17 12:30 80 134/84 08/12/17 12:15 79 136/84 08/12/17 12:00 93 08/12/17 12:00 90 137/89 08/12/17 12:00 93 Room Air 08/12/17 11:45 77 147/93 08/12/17 11:30 75 142/89 08/12/17 11:15 75 125/75 08/12/17 11:00 73 126/86 08/12/17 10:53 77 137/85 08/12/17 10:41 36.9 75 144/88 (106) 08/12/17 08:00 36.7 75 16 182/114 (136) 96 Room Air 08/12/17 08:00 93 Room Air 08/12/17 04:00 36.7 78 18 176/105 (128) 93 Room Air 08/12/17 04:00 Room Air 08/12/17 03:33 36.4 83 18 169/113 08/12/17 00:58 36.9 81 17 153/81 (105) 99 Room Air 08/12/17 00:00 Room Air 08/11/17 21:23 191/135 (153) 08/11/17 21:15 36.4 83 18 169/113 (131) 97 Room Air 08/11/17 21:00 Room Air 08/11/17 20:12 18 209/118 97 Room Air 08/11/17 19:24 92 18 179/103 97 Room Air 08/11/17 18:05 88 18 236/137 99 Room Air 08/11/17 18:04 96 Room Air 08/11/17 17:00 86 20 209/130 98 Room Air 08/11/17 15:30 79 08/11/17 15:25 36.9 86 20 188/120 95 Room Air (Cele Larson, [employer]) Physical Exam Notes: General: no distress Eyes: normal inspection, PERLL Respiratory: chest non tender, clear to auscultation, normal breath sounds, no respiratory distress, no accessory muscle use Cardiac: regular rate and rhythm, no rub or gallop, no murmur, no edema, no jvd GI/: active bowel sounds, tender abd, soft, non distended Extremities: normal range of motion, normal strength, non tender Neuro/Psych: alert and oriented x 3, normal mood and affect Skin: normal color, dry (Cele Larson ., [employer]) Laboratory Results Last 24 Hours Test 08/11/17 15:10 08/11/17 15:52 08/11/17 16:18 08/11/17 17:50 White Blood Count 6.67 K/uL Red Blood Count 2.96 M/uL Hemoglobin 9.9 g/dL Hematocrit 30.2 % Mean Corpuscular Volume 102.0 fL Mean Corpuscular Hemoglobin 33.4 pg Mean Corpuscular Hemoglobin Concent 32.8 g/dl Platelet Count 273 K/uL Mean Platelet Volume 9.3 fL Neutrophils (%) (Auto) 58.6 % Lymphocytes (%) (Auto) 25.0 % Monocytes (%) (Auto) 13.3 % Eosinophils (%) (Auto) 1.8 % Basophils (%) (Auto) 0.3 % Neutrophils # (Auto) 3.90 K/uL Lymphocytes # (Auto) 1.67 K/uL Monocytes # (Auto) 0.89 K/uL Eosinophils # (Auto) 0.12 K/uL Basophils # (Auto) 0.02 K/uL RDW Standard Deviation 55.7 fL RDW Coefficient of Variation 15.1 % Immature Granulocyte % (Auto) 1.0 % Immature Granulocyte # (Auto) 0.07 K/uL Prothrombin Time 10.6 SECONDS Prothromb Time International Ratio 1.0 Activated Partial Thromboplast Time 40.7 SECONDS Partial Thromboplastin Ratio 1.6 Sodium Level 130 mmol/L Potassium Level 3.2 mmol/L Chloride Level 93 mmol/L Carbon Dioxide Level 22 mmol/L Anion Gap 15.0 mmol/L Blood Urea Nitrogen 47 mg/dl Creatinine 9.28 mg/dl Estimated GFR () 5.6 Estimated GFR (Non- 4.9 BUN/Creatinine Ratio 5.1 Random Glucose 79 mg/dl Calcium Level 7.8 mg/dl Magnesium Level 2.0 mg/dl Total Bilirubin 0.4 mg/dl Aspartate Amino Transf (AST/SGOT) 15 U/L Alanine Aminotransferase (ALT/SGPT) 15 U/L Alkaline Phosphatase 136 U/L Troponin I 0.029 ng/ml Total Protein 7.8 gm/dl Albumin 3.1 gm/dl Globulin 4.7 gm/dl Albumin/Globulin Ratio 0.7 Thyroid Stimulating Hormone (TSH) 0.435 uIu/ml Bedside Troponin I < 0.030 ng/ml Bedside Lactic Acid Venous 2.21 mmol/L Urine Color YELLOW Urine Appearance CLEAR Urine pH 6.0 Urine Specific [place] 1.020 Urine Protein 2+ Urine Glucose (UA) NEG Urine Ketones NEG Urine Occult Blood NEG Urine Nitrite NEG Urine Bilirubin NEG Urine Urobilinogen NEG Urine Leukocyte Esterase SMALL Urine WBC (Auto) 10-30 /hpf Urine RBC (Auto) 5-10 /hpf Urine Hyaline Casts (Auto) 1-5 /lpf Urine Epithelial Cells (Auto) >30 /lpf Urine Bacteria (Auto) NEG Urine Test NEG Test 08/12/17 08:57 White Blood Count 4.96 K/uL Red Blood Count 2.75 M/uL Hemoglobin 9.2 g/dL Hematocrit 28.0 % Mean Corpuscular Volume 101.8 fL Mean Corpuscular Hemoglobin 33.5 pg Mean Corpuscular Hemoglobin Concent 32.9 g/dl Platelet Count 231 K/uL Mean Platelet Volume 8.6 fL Neutrophils (%) (Auto) 58.9 % Lymphocytes (%) (Auto) 25.2 % Monocytes (%) (Auto) 10.9 % Eosinophils (%) (Auto) 3.2 % Basophils (%) (Auto) 0.4 % Neutrophils # (Auto) 2.92 K/uL Lymphocytes # (Auto) 1.25 K/uL Monocytes # (Auto) 0.54 K/uL Eosinophils # (Auto) 0.16 K/uL Basophils # (Auto) 0.02 K/uL RDW Standard Deviation 55.8 fL RDW Coefficient of Variation 15.1 % Immature Granulocyte % (Auto) 1.4 % Immature Granulocyte # (Auto) 0.07 K/uL Sodium Level 133 mmol/L Potassium Level 3.4 mmol/L Chloride Level 96 mmol/L Carbon Dioxide Level 22 mmol/L Anion Gap 15.0 mmol/L Blood Urea Nitrogen 51 mg/dl Creatinine 10.50 mg/dl Est Creatinine Clear Calc Drug Dose 8.5 ml/min Estimated GFR () 4.9 Estimated GFR (Non- 4.2 BUN/Creatinine Ratio 4.8 Random Glucose 79 mg/dl Calcium Level 7.2 mg/dl (Cele Larson CRNP) Assessment and Plan Ms. Gallardo is a 36 year old woman here for nausea and vomiting in the setting of hypertensive urgency and UTI. Gastritis/UTI - CT did not show any acute GI process - Culture from Friday reviewed, was E Coli, >100,000 CFU, pansensitive - Continue Rocephin IV daily - will switch to po tomorrow if patient no longer nauseas - C.diff as patient has had recent antibiotics - Avoid Zofran due to prolonged QTc, will provide Compezine PRN Hypertensive urgency - blood pressures improving with dialysis - continue hydralazine, po labetalol and prn IV labetalol ESRD - nephro consulted for dialysis management - dialysis today with goal of 4L off Tension headache vs migraine - would avoid triptans given blood pressure - prn dilaudid, compezine VTE: SCDs Code status: Full (Cele Larson CRNP) MICHAELA Physician Supervision Note: I interviewed and examined the patient. Discussed with Cele JENNINGS and agree with findings and plan as documented in the note. Any exceptions or clarifications are listed here: None I did visit pt during dialysis and my exam was limited due to that, her blood pressure is still elevated car is regular and anterior lungs are clear hypertensive urgency and e coli uti poa will increase hydralazine in the eliza of 08/12, it was hoped that dialysis and volume reduction would help BP but pt is still running high Documented By: David Raines (David Raines M.D.)
[2017-08-12] MEDS: HydrALAZINE HCL 20 MG/ML VIAL IV. PRN (19:12)
[2017-08-12] MEDS: ACETAMINOPHEN 325 MG TAB PO PRN (19:12)
[2017-08-12] MEDS: MoRPHine SULFATE 2 MG/ML CARP IV PRN (21:19)
[2017-08-12] MEDS: CEFTRIAXONE SOD INJ 1 GM in DEXTROSE 5% ADD-VANTAGE 50ML 50 ML IV SCH (21:19)
[2017-08-12] MEDS: PROCHLORPERAZINE INJ 5 MG in SYRINGE 4 ML IV PRN (22:28)
[2017-08-13] VITALS (11 sets, daily range): BP systolic 155–186; BP diastolic 92–118; PULSE 77–90; TEMP 36.9–37.2; O2SAT 93–99
[2017-08-13] MEDS: HYDROmorphone INJ 0.5 MG/0.5 ML SYR IV PRN ×4 (00:22→21:18)
[2017-08-13] MEDS: PANTOprazole SOD 40 MG TAB PO SCH ×2 (08:31→20:58)
[2017-08-13] MEDS: CALCIUM ACETATE 667MG GELCAP PO SCH ×3 (08:31→16:45)
[2017-08-13] MEDS: LABETALOL HCL 200 MG TAB PO SCH ×2 (08:32→20:58)
[2017-08-13] MEDS: HEPARIN SOD 5000 UNIT/0.5 ML CARP SQ SCH ×2 (08:33→21:24)
[2017-08-13 09:04] LABS: HEMATOCRIT 30.8 % (37-47); HEMOGLOBIN 10.3 g/dL (12.0-16.0); MEAN CELL VOLUME 102.3 fL (80-100); MEAN CORPUSCULAR HEMOGLOBIN 34.2 pg (25-34); MEAN CORPUSCULAR HGB CONC 33.4 g/dl (32-36); MEAN PLATELET VOLUME 8.8 fL (7.4-10.4); PLATELET COUNT 244 K/uL (130-400); RED CELL DISTRIBUTION WIDTH SD 56.1 fL (36.4-46.3); WHITE BLOOD COUNT 5.44 K/uL (4.8-10.8)
[2017-08-13 09:47] LABS: CALCIUM 7.4 mg/dl (8.5-10.1); CREATININE 7.32 mg/dl (0.60-1.20); POTASSIUM 3.4 mmol/L (3.5-5.1)
--- NOTE | 2017-08-13 09:51 | Nephrology Progress Note ---
Nephrology Progress Note Date of Service Aug 13, 2017. Chief Complaint F/U for end-stage renal disease on dialysis. Subjective Astrid was seen and examined in her room this morning. She continues to have nausea and abdominal discomfort . No fever or chills. No diarrhea vomiting. Urine culture was negative. Blood pressure still running high, that is chronically high. Had dialysis yesterday, had 4 L UF, tolerated well Review of Systems A complete review of systems was performed. Pertinent positives are noted above. All other systems are negative. Vital Signs Last 8 Hrs Date Time Temp Pulse Resp B/P (MAP) Pulse Ox O2 Delivery O2 Flow Rate FiO2 08/13/17 08:00 93 Room Air 08/13/17 07:57 36.9 82 18 168/97 (120) 99 Room Air 08/13/17 04:00 93 Room Air 08/13/17 03:51 37.0 77 18 163/92 (115) 98 Room Air Last Recorded Weight Weight (Kilograms): 102.500 Physical Exam GENERAL: young female, Obese, AAA x 3, pleasant, healthy-appearing, not in any distress. NECK: Supple, no JVD. RESPIRATORY: Normal breathing efforts, no accessory muscle use, clear to auscultation bilaterally, no wheezes or rales. CARDIOVASCULAR: S1, S2 normal, rate rhythm regular. EXTREMITY: No lower extremity edema NEURO: speech fluent. PSYCHIATRY: Normal mood and judgment Family History Diabetes mellitus FHx: heart disease Hypertension Social History Smoking Status: Former smoker Drug Use: none Marital Status: single Housing Status: lives with family (lives w/her two kids, age 13 and 10) Occupation: unemployed Laboratory Results Past 24 Hours 08/13/17 08:31 Test 08/13/17 08:31 Red Blood Count 3.01 M/uL (4.2-5.4) Mean Corpuscular Volume 102.3 fL (80-100) Mean Corpuscular Hemoglobin 34.2 pg (25-34) Mean Corpuscular Hemoglobin Concent 33.4 g/dl (32-36) RDW Standard Deviation 56.1 fL (36.4-46.3) RDW Coefficient of Variation 15.0 % (11.5-14.5) Mean Platelet Volume 8.8 fL (7.4-10.4) Allergies Coded Allergies: No Known Allergies (Verified , 06/15/17) Medications Current Inpatient Medications Medications (Trade) Dose Ordered Sig/[place] Route Start Time Stop Time Status Last Admin Dose Admin Heparin Sodium (Porcine) (Heparin Sq 5000 Unit/0.5ml) 5,000 unit Q12H SQ 08/11/17 22:00 09/10/17 21:59 08/13/17 08:33 5,000 UNIT Acetaminophen (Tylenol Tab) 650 mg Q4H PRN PO 08/11/17 20:00 09/10/17 19:59 08/12/17 19:12 650 MG Al Hydrox/Mg Hydrox/Simethicone (Maalox Max Susp) 15 ml Q4H PRN PO 08/11/17 20:00 09/10/17 19:59 Magnesium Hydroxide (Milk Of Magnesia Susp) 30 ml Q12H PRN PO 08/11/17 20:00 09/10/17 19:59 Calcium Acetate (Phoslo Cap) 667 mg TIDM PO 08/12/17 07:30 09/11/17 07:59 08/13/17 08:31 667 MG Labetalol HCl (Normodyne Tab) 400 mg BID PO 08/11/17 21:00 09/10/17 20:59 08/13/17 08:32 400 MG Pantoprazole Sodium (Protonix Tab) 40 mg BID PO 08/11/17 21:00 09/10/17 20:59 08/13/17 08:31 40 MG Hydralazine HCl (HydrALAZINE INJ) 10 mg Q6H PRN IV. 08/11/17 20:00 09/10/17 19:59 08/12/17 19:12 10 MG Prochlorperazine Edisylate 5 mg/ Syringe 5 ml @ 5 mls/min Q6H PRN IV 08/11/17 20:00 09/10/17 19:59 08/12/17 22:28 5 MLS/MIN Ioversol (Optiray 320) 90 ml UD PRN IV 08/11/17 20:15 08/15/17 20:14 Ceftriaxone Sodium 1 gm/ Dextrose 50 ml @ 100 mls/hr Q24H IV 08/11/17 22:00 08/21/17 21:59 08/12/17 21:19 100 MLS/HR Labetalol HCl (Normodyne IV) 10 mg Q1H PRN IV 08/11/17 21:45 09/10/17 21:44 Hydromorphone HCl (Dilaudid Inj) 0.5 mg Q4H PRN IV 08/12/17 02:30 08/26/17 02:29 08/13/17 06:39 0.5 MG Morphine Sulfate (MoRPHine SULFATE INJ) 2 mg Q4H PRN IV 08/12/17 11:45 08/26/17 11:44 08/12/17 21:19 2 MG Hydralazine HCl (Apresoline Tab) 100 mg QID PO 08/12/17 21:00 09/10/17 20:59 08/13/17 08:32 100 MG Impression (1) End stage renal failure on dialysis (2) Hypertensive urgency (3) Urinary tract infection (4) Secondary hyperparathyroidism of renal origin (5) Anemia 36 y old female with history of end-stage renal disease secondary to hypertensive nephrosclerosis,on hemodialysis Friday, , Friday via right radiocephalic AV fistula at [place] dialysis unit. Admitted with urinary tract infection with E coli, failed outpatient antibiotic. She has history of high weight gain and poorly-controlled HTN and dietary noncompliance. Today she is due for dialysis and currently blood pressure running high. Overall she feels slightly better, nausea and abdominal pain improved. Did have any episode of vomiting or diarrhea. Denies dysuria. Electrolyte acceptable. Recommendations --had hemodialysis yesterday, had 4 liters UF, BP still high, always high at baseline, asymptomatic. Next HD tomorrow, if discharge planned , HD can be done at outpt unit. - avoid IV fluid --continued Nephrocaps and renal diet --dose medications for GFR less than 10 --continue on current antihypertensive medications and low-salt diet. --MARIO 4000 units x 1 dose given on 08/12/17 --continue on phosphate binders with meals. Will follow
[2017-08-13] MEDS ORDERED: AMLODIPINE BESYLATE 5 MG TAB PO ONE (14:42)
--- NOTE | 2017-08-13 14:56 | Hospitalist Progress Note ---
Hospitalist Progress Note Date of Service Aug 13, 2017. (Cele Larson ., MICHAELA) Subjective Pt evaluation today including: conversation w/ patient, physical exam, chart review, lab review, review of inpatient medication list Ms. Gallardo continues to have headaches 06/17 and has persistent nausea but no vomiting. She has had no further diarrhea. Her blood pressure continues to be elevated 160s-180s ROS Constitutional: no chills, aches, sweats or fever Respiratory: no sob,cough, sputum, or wheezing Cardiac: no chest pain, palpitations, edema, orthopnea or lightheadedness GI: see HPI : no dysuria or hesitancy Extremities: no joint pain or weakness Skin: no rash All Other Systems: Reviewed and Negative (Cele Larson CRNP) Medications Medications Administered Medications (Trade) Dose Ordered Sig/[place] Route Start Time Stop Time Status Last Admin Dose Admin Sodium Chloride 1,000 ml @ 500 mls/hr Q2H STAT IV 08/11/17 15:26 08/11/17 17:25 DC 08/11/17 15:57 500 MLS/HR Hydromorphone HCl (Dilaudid Inj) 0.5 mg NOW STAT IV 08/11/17 15:28 08/11/17 15:30 DC 08/11/17 15:56 0.5 MG Ondansetron HCl (Zofran Inj) 4 mg NOW STAT IV 08/11/17 16:10 08/11/17 16:11 DC 08/11/17 16:21 4 MG Hydromorphone HCl (Dilaudid Inj) 0.5 mg NOW STAT IV 08/11/17 16:31 08/11/17 16:32 DC 08/11/17 16:47 0.5 MG Labetalol HCl (Normodyne IV) 20 mg NOW STAT IV 08/11/17 18:42 08/11/17 18:43 DC 08/11/17 19:16 20 MG Nitroglycerin (Nitro-Dur 0.1 Mg/Hr Patch) 1 patch NOW STAT TD 08/11/17 21:38 08/11/17 21:39 DC 08/11/17 23:30 1 PATCH Heparin Sodium (Porcine) (Heparin Sq 5000 Unit/0.5ml) 5,000 unit Q12H SQ 08/11/17 22:00 09/10/17 21:59 08/13/17 08:33 5,000 UNIT Acetaminophen (Tylenol Tab) 650 mg Q4H PRN PO 08/11/17 20:00 09/10/17 19:59 08/12/17 19:12 650 MG Al Hydrox/Mg Hydrox/Simethicone (Maalox Max Susp) 15 ml Q4H PRN PO 08/11/17 20:00 09/10/17 19:59 08/13/17 10:43 15 ML Calcium Acetate (Phoslo Cap) 667 mg TIDM PO 08/12/17 07:30 09/11/17 07:59 08/13/17 08:31 667 MG Hydralazine HCl (Apresoline Tab) 50 mg QID PO 08/11/17 21:00 08/12/17 18:41 DC 08/12/17 17:04 50 MG Labetalol HCl (Normodyne Tab) 400 mg BID PO 08/11/17 21:00 09/10/17 20:59 08/13/17 08:32 400 MG Pantoprazole Sodium (Protonix Tab) 40 mg BID PO 08/11/17 21:00 09/10/17 20:59 08/13/17 08:31 40 MG Hydralazine HCl (HydrALAZINE INJ) 10 mg Q6H PRN IV. 08/11/17 20:00 09/10/17 19:59 08/12/17 19:12 10 MG Prochlorperazine Edisylate 5 mg/ Syringe 5 ml @ 5 mls/min Q6H PRN IV 08/11/17 20:00 09/10/17 19:59 08/12/17 22:28 5 MLS/MIN Hydromorphone HCl (Dilaudid Inj) 1 mg STK-MED ONCE .ROUTE 08/11/17 20:06 08/11/17 20:07 DC 08/11/17 20:08 1 MG Ceftriaxone Sodium 1 gm/ Dextrose 50 ml @ 100 mls/hr Q24H IV 08/11/17 22:00 08/21/17 21:59 08/12/17 21:19 100 MLS/HR Miscellaneous (Remove Nitro-Dur Patch) 1 ea TODAY@1000 N/A 08/12/17 10:00 08/12/17 10:01 DC 08/12/17 10:00 1 EA Sumatriptan Succinate (Imitrex Tab) 50 mg ONE STAT PO 08/12/17 02:23 08/12/17 02:29 DC 08/12/17 03:06 50 MG Hydromorphone HCl (Dilaudid Inj) 0.5 mg Q4H PRN IV 08/12/17 02:30 08/26/17 02:29 08/13/17 10:44 0.5 MG Potassium Chloride (Klor-Con Tab) 20 meq 1145 ONCE PO 08/12/17 11:45 08/12/17 11:46 DC 08/12/17 13:59 20 MEQ Morphine Sulfate (MoRPHine SULFATE INJ) 2 mg Q4H PRN IV 08/12/17 11:45 08/26/17 11:44 08/12/17 21:19 2 MG Hydralazine HCl (Apresoline Tab) 100 mg QID PO 08/12/17 21:00 09/10/17 20:59 08/13/17 13:07 100 MG (Cele Larson, MICHAELA) Objective Vital Signs Date Time Temp Pulse Resp B/P (MAP) Pulse Ox O2 Delivery O2 Flow Rate FiO2 08/13/17 12:00 93 Room Air 08/13/17 12:00 84 08/13/17 10:51 37.2 81 18 162/102 (122) 96 2.0 08/13/17 08:00 93 Room Air 08/13/17 07:57 36.9 82 18 168/97 (120) 99 Room Air 08/13/17 04:00 93 Room Air 08/13/17 03:51 37.0 77 18 163/92 (115) 98 Room Air 08/13/17 00:09 37.2 85 16 155/95 (115) 98 Room Air 08/12/17 23:59 93 Room Air 08/12/17 20:00 37.3 93 20 164/107 (126) 97 Room Air 08/12/17 20:00 93 Room Air 08/12/17 18:30 37.8 89 16 190/88 (122) 97 Room Air 08/12/17 16:53 157/117 (130) 08/12/17 16:37 36.8 91 20 162/112 (129) 100 Room Air 08/12/17 16:00 93 Room Air 08/12/17 15:45 36.8 84 162/112 (129) (Cele Larson CRNP) Physical Exam Notes: General: no distress Eyes: normal inspection, PERLL Respiratory: chest non tender, clear to auscultation, normal breath sounds, no respiratory distress, no accessory muscle use Cardiac: regular rate and rhythm, no rub or gallop, no murmur, no edema, no jvd GI/: active bowel sounds, no abd pain or tenderness, soft, non distended Extremities: normal range of motion, normal strength, neck muscles are tender to palpation as well as the back of the neck Neuro/Psych: alert and oriented x 3, normal mood and affect Skin: normal color, dry (eCle Larson CRNP) Laboratory Results Last 24 Hours Test 08/13/17 08:31 White Blood Count 5.44 K/uL Red Blood Count 3.01 M/uL Hemoglobin 10.3 g/dL Hematocrit 30.8 % Mean Corpuscular Volume 102.3 fL Mean Corpuscular Hemoglobin 34.2 pg Mean Corpuscular Hemoglobin Concent 33.4 g/dl RDW Standard Deviation 56.1 fL RDW Coefficient of Variation 15.0 % Platelet Count 244 K/uL Mean Platelet Volume 8.8 fL Sodium Level 134 mmol/L Potassium Level 3.4 mmol/L Chloride Level 98 mmol/L Carbon Dioxide Level 27 mmol/L Anion Gap 9.0 mmol/L Blood Urea Nitrogen 28 mg/dl Creatinine 7.32 mg/dl Est Creatinine Clear Calc Drug Dose 12.3 ml/min Estimated GFR () 7.5 Estimated GFR (Non- 6.5 BUN/Creatinine Ratio 3.9 Random Glucose 99 mg/dl Calcium Level 7.4 mg/dl (Cele Larson CRNP) Assessment and Plan Ms. Gallardo is a 36 year old woman here for nausea and vomiting in the setting of hypertensive urgency and UTI. Gastritis/UTI - CT did not show any acute GI process - Culture from Friday reviewed, was E Coli, >100,000 CFU, pansensitive - Continue Rocephin IV daily - C.diff pending - continue compezine - gall bladder US Hypertensive urgency - blood pressures continue to be elevated - start amlodipine - continue hydralazine - would like to back down on hydralazine dosing if amlodipine is able to bring pressures down a bit - continue po labetalol and prn IV labetalol ESRD - nephro consulted for dialysis management - dialysis took of goal of 4L yesterday Tension headache vs migraine - would avoid triptans given blood pressure - prn dilaudid, compezine - warm compress to neck for tension VTE: SCDs Code status: Full (Cele Larson ., BACK WINDER) SANITATION TECHNICIAN Physician Supervision Note: I interviewed and examined the patient. Discussed with Cele Larson SANITATION TECHNICIAN and agree with findings and plan as documented in the note. Any exceptions or clarifications are listed here: None Patient remains with the elevated blood pressure and also abdominal pain and nausea. The patient and no significant abnormalities on her CT of her abdomen and pelvis on admission except for left-sided kidney stones in the renal pelvis. The patient has no significant LFT abnormalities although in the past she was worked up for gallbladder disease but could not tolerate a HIDA scan. The patient states that her pain is worsened with food and drinking it is central to right upper quadrant she has had no stool changes and known also home is sick. She offers no complaints from her hypertension Vital signs no significant blood pressure elevation still Cardiac regular lungs are clear abdomen normoactive bowel sounds tenderness to 8 /10 in the epigastrium right upper quadrant no focal hepatomegaly no guarding no rebound End-stage renal disease managed with dialysis electrolyte abnormalities persist once again will be corrected with dialysis Abdominal pain of undetermined origin we'll repeat gallbladder studies and LFTs in the morning considering repeating HIDA scan if able Uncontrolled hypertension we'll add a calcium channel [place] under the direction of nephrology Documented By: David Raines (David Raines M.D.)
--- NOTE | 2017-08-13 18:41 | DIAGNOSTIC IMAGING REPORT ---
ULTRASOUND RIGHT UPPER QUADRANT ABDOMEN CLINICAL HISTORY: Nausea. COMPARISON STUDY: Abdominal CT dated 08/11/2017. TECHNIQUE: Real-time, grayscale, and color flow sonography of the right upper quadrant of the abdomen was performed. Images are reviewed in the transverse and longitudinal planes. FINDINGS: Liver: The liver is enlarged and demonstrates heterogeneously increased echotexture consistent with hepatic steatosis. There is no intrahepatic biliary ductal dilatation. The main portal vein is patent. Gallbladder: The gallbladder is normal in appearance. No gallstones are identified. There is no gallbladder wall thickening or pericholecystic fluid. A sonographic Guaman's sign is reportedly absent. The common bile duct measures up to 0.7 cm in diameter. Pancreas: Visualized portions of the pancreatic head and body are normal in appearance. Right kidney: Survey images of the right kidney show significant cortical atrophy. The right kidney appears echogenic suggesting medical renal disease. A 1.1 cm cyst is noted. There is no hydronephrosis. Ascites: None. IMPRESSION: 1. No acute sonographic abnormality is identified in the right upper quadrant. No gallstones are seen. 2. Hepatomegaly and hepatic steatosis. 3. Images of the right kidney suggest medical renal disease. Electronically signed by: Arian Seth M.D. 08/13/2017 6:39 PM Dictated Date/Time: 08/13/2017 6:38 PM
[2017-08-13] MEDS: CEFTRIAXONE SOD INJ 1 GM in DEXTROSE 5% ADD-VANTAGE 50ML 50 ML IV SCH (21:22)
[2017-08-13] MEDS: MoRPHine SULFATE 2 MG/ML CARP IV PRN (22:00)
[2017-08-13] MEDS: PROCHLORPERAZINE INJ 5 MG in SYRINGE 4 ML IV PRN (23:34)
[2017-08-14] VITALS (27 sets, daily range): BP systolic 91–196; BP diastolic 58–114; PULSE 64–92; TEMP 36.7–37.4; O2SAT 93–98
[2017-08-14] MEDS: HYDROmorphone INJ 0.5 MG/0.5 ML SYR IV PRN ×4 (04:18→22:47)
[2017-08-14] MEDS: PANTOprazole SOD 40 MG TAB PO SCH ×2 (08:08→21:03)
[2017-08-14] MEDS: CALCIUM ACETATE 667MG GELCAP PO SCH ×3 (08:08→16:56)
[2017-08-14] MEDS: LABETALOL HCL 200 MG TAB PO SCH ×2 (08:08→21:03)
[2017-08-14] MEDS: AMLODIPINE BESYLATE 5 MG TAB PO SCH (08:08)
[2017-08-14] MEDS: HEPARIN SOD 5000 UNIT/0.5 ML CARP SQ SCH ×2 (08:09→21:53)
[2017-08-14 09:08] LABS: HEMATOCRIT 29.2 % (37-47); HEMOGLOBIN 9.2 g/dL (12.0-16.0); MEAN CELL VOLUME 103.5 fL (80-100); MEAN CORPUSCULAR HEMOGLOBIN 32.6 pg (25-34); MEAN CORPUSCULAR HGB CONC 31.5 g/dl (32-36); MEAN PLATELET VOLUME 8.9 fL (7.4-10.4); PLATELET COUNT 248 K/uL (130-400); RED CELL DISTRIBUTION WIDTH CV 15.3 % (11.5-14.5); RED CELL DISTRIBUTION WIDTH SD 57.5 fL (36.4-46.3); WHITE BLOOD COUNT 6.97 K/uL (4.8-10.8)
[2017-08-14 10:09] LABS: CALCIUM 7.1 mg/dl (8.5-10.1); CREATININE 9.37 mg/dl (0.60-1.20); POTASSIUM 3.3 mmol/L (3.5-5.1)
--- NOTE | 2017-08-14 10:31 | Dialysis Progress Note ---
Hemodialysis Note Date of Service Aug 14, 2017. Chief Complaint F/U for end-stage renal disease on dialysis. Subjective Astrid was seen and examined during HD this morning. She reports improvement in nausea and abdominal discomfort but not resolved . No fever or chills. No diarrhea vomiting. Urine culture was negative. CT abdomen and USG unremarkable. BP better. Review of Systems A complete review of systems was performed. Pertinent positives are noted above. All other systems are negative. Vital Signs Last 8 Hrs Date Time Temp Pulse Resp B/P (MAP) Pulse Ox O2 Delivery O2 Flow Rate FiO2 08/14/17 10:15 78 139/93 08/14/17 10:00 79 135/91 08/14/17 09:40 37.1 86 145/97 (113) 08/14/17 08:06 191/112 (138) 08/14/17 08:00 93 Room Air 08/14/17 07:51 36.7 77 16 91/63 (72) 93 Room Air 08/14/17 04:28 168/114 (132) 08/14/17 04:00 Room Air 08/14/17 03:38 37.3 81 18 196/110 (138) 98 Room Air Last Recorded Weight Weight (Kilograms): 105.900 Physical Exam GENERAL: young female, Obese, AAA x 3, pleasant, healthy-appearing, not in any distress. NECK: Supple, no JVD. RESPIRATORY: Normal breathing efforts, no accessory muscle use, clear to auscultation bilaterally, no wheezes or rales. CARDIOVASCULAR: S1, S2 normal, rate rhythm regular. EXTREMITY: No lower extremity edema NEURO: speech fluent. PSYCHIATRY: Normal mood and judgment Social History Smoking Status: Former smoker Drug Use: none Marital Status: single Housing Status: lives with family (lives w/her two kids, age 13 and 10) Occupation: unemployed Laboratory Results Past 24 Hours 08/14/17 06:53 08/14/17 06:53 Test 08/14/17 06:53 Red Blood Count 2.82 M/uL (4.2-5.4) Mean Corpuscular Volume 103.5 fL (80-100) Mean Corpuscular Hemoglobin 32.6 pg (25-34) Mean Corpuscular Hemoglobin Concent 31.5 g/dl (32-36) RDW Standard Deviation 57.5 fL (36.4-46.3) RDW Coefficient of Variation 15.3 % (11.5-14.5) Mean Platelet Volume 8.9 fL (7.4-10.4) Anion Gap 11.0 mmol/L (3-11) Est Creatinine Clear Calc Drug Dose 9.8 ml/min Estimated GFR () 5.6 Estimated GFR (Non- 4.8 BUN/Creatinine Ratio 4.0 (10-20) Calcium Level 7.1 mg/dl (8.5-10.1) Allergies Coded Allergies: No Known Allergies (Verified , 06/15/17) Medications Current Inpatient Medications Medications (Trade) Dose Ordered Sig/[place] Route Start Time Stop Time Status Last Admin Dose Admin Heparin Sodium (Porcine) (Heparin Sq 5000 Unit/0.5ml) 5,000 unit Q12H SQ 08/11/17 22:00 09/10/17 21:59 08/14/17 08:09 5,000 UNIT Acetaminophen (Tylenol Tab) 650 mg Q4H PRN PO 08/11/17 20:00 09/10/17 19:59 08/12/17 19:12 650 MG Al Hydrox/Mg Hydrox/Simethicone (Maalox Max Susp) 15 ml Q4H PRN PO 08/11/17 20:00 09/10/17 19:59 08/13/17 10:43 15 ML Magnesium Hydroxide (Milk Of Magnesia Susp) 30 ml Q12H PRN PO 08/11/17 20:00 09/10/17 19:59 Calcium Acetate (Phoslo Cap) 667 mg TIDM PO 08/12/17 07:30 09/11/17 07:59 08/14/17 08:08 667 MG Labetalol HCl (Normodyne Tab) 400 mg BID PO 08/11/17 21:00 09/10/17 20:59 08/14/17 08:08 400 MG Pantoprazole Sodium (Protonix Tab) 40 mg BID PO 08/11/17 21:00 09/10/17 20:59 08/14/17 08:08 40 MG Hydralazine HCl (HydrALAZINE INJ) 10 mg Q6H PRN IV. 08/11/17 20:00 09/10/17 19:59 08/12/17 19:12 10 MG Prochlorperazine Edisylate 5 mg/ Syringe 5 ml @ 5 mls/min Q6H PRN IV 08/11/17 20:00 09/10/17 19:59 08/13/17 23:34 5 MLS/MIN Ioversol (Optiray 320) 90 ml UD PRN IV 08/11/17 20:15 08/15/17 20:14 Ceftriaxone Sodium 1 gm/ Dextrose 50 ml @ 100 mls/hr Q24H IV 08/11/17 22:00 08/14/17 23:00 08/13/17 21:22 100 MLS/HR Labetalol HCl (Normodyne IV) 10 mg Q1H PRN IV 08/11/17 21:45 09/10/17 21:44 08/14/17 04:12 10 MG Hydromorphone HCl (Dilaudid Inj) 0.5 mg Q4H PRN IV 08/12/17 02:30 08/26/17 02:29 08/14/17 08:05 0.5 MG Morphine Sulfate (MoRPHine SULFATE INJ) 2 mg Q4H PRN IV 08/12/17 11:45 08/26/17 11:44 08/13/17 22:00 2 MG Hydralazine HCl (Apresoline Tab) 100 mg QID PO 08/12/17 21:00 09/10/17 20:59 08/14/17 08:07 100 MG Amlodipine Besylate (Norvasc Tab) 10 mg QAM PO 08/14/17 09:00 09/13/17 08:59 08/14/17 08:08 10 MG Impression (1) End stage renal failure on dialysis (2) Hypertensive urgency (3) Urinary tract infection (4) Secondary hyperparathyroidism of renal origin (5) Anemia 36 y old female with history of end-stage renal disease secondary to hypertensive nephrosclerosis,on hemodialysis Friday, , Friday via right radiocephalic AV fistula at [facility]. Admitted with urinary tract infection with E coli, failed outpatient antibiotic. She has history of high weight gain and poorly-controlled HTN and dietary noncompliance. Today she is due for dialysis and currently blood pressure running high. Overall she feels slightly better, nausea and abdominal pain improved. Did have any episode of vomiting or diarrhea. Denies dysuria. Electrolyte acceptable. Recommendations --getting hemodialysis now as regular schedule,with 3 K bath - avoid IV fluid --continued Nephrocaps and renal diet --dose medications for GFR less than 10 --continue on current antihypertensive medications and low-salt diet. --MARIO 4000 units x 1 dose given on 08/12/17 --continue on phosphate binders with meals. Will follow
--- NOTE | 2017-08-14 13:59 | Hospitalist Progress Note ---
Hospitalist Progress Note Date of Service Aug 14, 2017. (Cele Larson .MICHAELA) Subjective Pt evaluation today including: conversation w/ patient, conversation w/ family , physical exam, chart review, lab review, review of inpatient medication list Ms. Gallardo is currently receiving dialysis. She continues to have headache as well as persistent nausea, no vomiting. ROS Constitutional: no chills, aches, sweats or fever Respiratory: no sob,cough, sputum, or wheezing Cardiac: no chest pain, palpitations, edema, orthopnea or lightheadedness GI: see HPI : no dysuria or hesitancy Extremities: no joint pain or weakness Skin: no rash All Other Systems: Reviewed and Negative (Cele Larson CRNP) Medications Medications Administered Medications (Trade) Dose Ordered Sig/[place] Route Start Time Stop Time Status Last Admin Dose Admin Sodium Chloride 1,000 ml @ 500 mls/hr Q2H STAT IV 08/11/17 15:26 08/11/17 17:25 DC 08/11/17 15:57 500 MLS/HR Hydromorphone HCl (Dilaudid Inj) 0.5 mg NOW STAT IV 08/11/17 15:28 08/11/17 15:30 DC 08/11/17 15:56 0.5 MG Ondansetron HCl (Zofran Inj) 4 mg NOW STAT IV 08/11/17 16:10 08/11/17 16:11 DC 08/11/17 16:21 4 MG Hydromorphone HCl (Dilaudid Inj) 0.5 mg NOW STAT IV 08/11/17 16:31 08/11/17 16:32 DC 08/11/17 16:47 0.5 MG Labetalol HCl (Normodyne IV) 20 mg NOW STAT IV 08/11/17 18:42 08/11/17 18:43 DC 08/11/17 19:16 20 MG Nitroglycerin (Nitro-Dur 0.1 Mg/Hr Patch) 1 patch NOW STAT TD 08/11/17 21:38 08/11/17 21:39 DC 08/11/17 23:30 1 PATCH Heparin Sodium (Porcine) (Heparin Sq 5000 Unit/0.5ml) 5,000 unit Q12H SQ 08/11/17 22:00 09/10/17 21:59 08/14/17 08:09 5,000 UNIT Acetaminophen (Tylenol Tab) 650 mg Q4H PRN PO 08/11/17 20:00 09/10/17 19:59 08/12/17 19:12 650 MG Al Hydrox/Mg Hydrox/Simethicone (Maalox Max Susp) 15 ml Q4H PRN PO 08/11/17 20:00 09/10/17 19:59 08/13/17 10:43 15 ML Calcium Acetate (Phoslo Cap) 667 mg TIDM PO 08/12/17 07:30 09/11/17 07:59 08/14/17 08:08 667 MG Hydralazine HCl (Apresoline Tab) 50 mg QID PO 08/11/17 21:00 08/12/17 18:41 DC 08/12/17 17:04 50 MG Labetalol HCl (Normodyne Tab) 400 mg BID PO 08/11/17 21:00 09/10/17 20:59 08/14/17 08:08 400 MG Pantoprazole Sodium (Protonix Tab) 40 mg BID PO 08/11/17 21:00 09/10/17 20:59 08/14/17 08:08 40 MG Hydralazine HCl (HydrALAZINE INJ) 10 mg Q6H PRN IV. 08/11/17 20:00 09/10/17 19:59 08/12/17 19:12 10 MG Prochlorperazine Edisylate 5 mg/ Syringe 5 ml @ 5 mls/min Q6H PRN IV 08/11/17 20:00 09/10/17 19:59 08/13/17 23:34 5 MLS/MIN Hydromorphone HCl (Dilaudid Inj) 1 mg STK-MED ONCE .ROUTE 08/11/17 20:06 08/11/17 20:07 DC 08/11/17 20:08 1 MG Ceftriaxone Sodium 1 gm/ Dextrose 50 ml @ 100 mls/hr Q24H IV 08/11/17 22:00 08/14/17 23:00 08/13/17 21:22 100 MLS/HR Miscellaneous (Remove Nitro-Dur Patch) 1 ea TODAY@1000 N/A 08/12/17 10:00 08/12/17 10:01 DC 08/12/17 10:00 1 EA Labetalol HCl (Normodyne IV) 10 mg Q1H PRN IV 08/11/17 21:45 09/10/17 21:44 08/14/17 04:12 10 MG Sumatriptan Succinate (Imitrex Tab) 50 mg ONE STAT PO 08/12/17 02:23 08/12/17 02:29 DC 08/12/17 03:06 50 MG Hydromorphone HCl (Dilaudid Inj) 0.5 mg Q4H PRN IV 08/12/17 02:30 08/26/17 02:29 08/14/17 08:05 0.5 MG Potassium Chloride (Klor-Con Tab) 20 meq 1145 ONCE PO 08/12/17 11:45 08/12/17 11:46 DC 08/12/17 13:59 20 MEQ Morphine Sulfate (MoRPHine SULFATE INJ) 2 mg Q4H PRN IV 08/12/17 11:45 08/26/17 11:44 08/13/17 22:00 2 MG Hydralazine HCl (Apresoline Tab) 100 mg QID PO 08/12/17 21:00 09/10/17 20:59 08/14/17 08:07 100 MG Amlodipine Besylate (Norvasc Tab) 10 mg QAM PO 08/14/17 09:00 09/13/17 08:59 08/14/17 08:08 10 MG Amlodipine Besylate (Norvasc Tab) 10 mg 1442 ONCE PO 08/13/17 14:42 08/13/17 14:47 DC 08/13/17 15:19 10 MG (Cele Larson, MICHAELA) Objective Vital Signs Date Time Temp Pulse Resp B/P (MAP) Pulse Ox O2 Delivery O2 Flow Rate FiO2 08/14/17 12:15 92 117/89 08/14/17 12:00 67 128/104 08/14/17 12:00 93 Room Air 08/14/17 11:45 80 129/87 08/14/17 11:30 79 127/83 08/14/17 11:15 79 125/82 08/14/17 11:00 80 122/70 08/14/17 10:45 78 135/85 08/14/17 10:30 81 135/86 08/14/17 10:15 78 139/93 08/14/17 10:00 79 135/91 08/14/17 09:40 37.1 86 145/97 (113) 08/14/17 08:06 191/112 (138) 08/14/17 08:00 93 Room Air 08/14/17 07:51 36.7 77 16 91/63 (72) 93 Room Air 08/14/17 04:28 168/114 (132) 08/14/17 04:00 Room Air 08/14/17 03:38 37.3 81 18 196/110 (138) 98 Room Air 08/14/17 00:00 Room Air 08/13/17 23:37 37.2 84 18 158/99 (118) 98 Room Air 08/13/17 21:00 37.1 90 20 186/118 (140) 96 Room Air 08/13/17 20:00 Room Air 08/13/17 16:00 93 Room Air 08/13/17 15:58 37.1 83 18 174/101 (125) 97 Room Air (Cele Larson CRNP) Physical Exam Notes: General: no distress Eyes: normal inspection, PERLL Respiratory: chest non tender, clear to auscultation, normal breath sounds, no respiratory distress, no accessory muscle use Cardiac: regular rate and rhythm, no rub or gallop, no murmur, no edema, no jvd GI/: active bowel sounds,upper right quadrant tenderness, soft, non distended Extremities: normal range of motion, normal strength, non tender Neuro/Psych: alert and oriented x 3, normal mood and affect Skin: normal color, dry (Cele Larson CRNP) Laboratory Results Last 24 Hours Test 08/14/17 06:53 White Blood Count 6.97 K/uL Red Blood Count 2.82 M/uL Hemoglobin 9.2 g/dL Hematocrit 29.2 % Mean Corpuscular Volume 103.5 fL Mean Corpuscular Hemoglobin 32.6 pg Mean Corpuscular Hemoglobin Concent 31.5 g/dl RDW Standard Deviation 57.5 fL RDW Coefficient of Variation 15.3 % Platelet Count 248 K/uL Mean Platelet Volume 8.9 fL Sodium Level 136 mmol/L Potassium Level 3.3 mmol/L Chloride Level 100 mmol/L Carbon Dioxide Level 25 mmol/L Anion Gap 11.0 mmol/L Blood Urea Nitrogen 37 mg/dl Creatinine 9.37 mg/dl Est Creatinine Clear Calc Drug Dose 9.8 ml/min Estimated GFR () 5.6 Estimated GFR (Non- 4.8 BUN/Creatinine Ratio 4.0 Random Glucose 84 mg/dl Calcium Level 7.1 mg/dl (Cele Larson CRNP) Assessment and Plan Ms. Gallardo is a 36 year old woman here for nausea and vomiting in the setting of hypertensive urgency and UTI. Gastritis/UTI - CT did not show any acute GI process - Culture from Friday reviewed, was E Coli, >100,000 CFU, pansensitive - last day of abx 08/14 - continue compezine - gall bladder US showed fatty liver - consulted GI Hypertensive urgency - blood pressures continue to be elevated - increased labetalol to 800 bid - continue hydralazine - would like to back down on hydralazine dosing if amlodipine and increased labetalol are effective ESRD - nephro consulted for dialysis management - dialysis today Tension headache vs migraine - would avoid triptans given blood pressure - prn dilaudid, compezine - warm compress to neck for tension - patient expresses that she always has headaches like this when her blood pressure is elevated, hopefully if we can control her BP her [place] will resolve VTE: SCDs Code status: Full (Cele Larson, MICHAELA) PHOTO OPTICS TECHNICIAN Physician Supervision Note: I interviewed and examined the patient. Discussed with Cele Larson PHOTO OPTICS TECHNICIAN and agree with findings and plan as documented in the note. Any exceptions or clarifications are listed here: None Patient remains with persistent nausea and mild upper quadrant abdominal pain despite negative studies and improving labs chest has been struggling with uncontrolled hypertension. Vital signs are reviewed and show blood pressure continue to be high her physical exam is with reproducible abdominal pain Heart is regular without murmurs lungs are clear Abdominal pain/nausea - CT did not show any acute GI process, repeat ultrasound did not show any cholelithiasis GI consult appreciated we'll pursue possible gastroparesis from diabetes or possible peptic ulcer disease, Carafate added to see if symptoms improve Urine culture present on admission- Culture from Friday reviewed, was E Coli, > 100,000 CFU, pansensitive - last day of abx /7 Hypertensive urgencyblood pressures continue to be elevated - increased labetalol to 800 bid 08/14 - continue hydralazine - would like to back down on hydralazine dosing if amlodipine and increased labetalol are effective ESRD- nephro consulted for continued dialysis management - dialysis Friday VTE: SCDs Code status: Full Documented By: David Raines (David Raines M.D.)
[2017-08-14] MEDS ORDERED: POTASSIUM CHLORIDE 10 MEQ TABCR PO ONE (14:30)
--- NOTE | 2017-08-14 14:43 | Gastrointestinal Consultation ---
Gastrointestinal Consultation Date of Consultation: Aug 14, 2017 Attending Physician: MICHAELA Isaac Consulting Physician: Naren Reason for Consultation: nausea History of Present Illness Patient is a 36 year old female w/ history ESRD on dialysis three times weekly, h/o gastric ulcer who presented through the ED for evaluation of N/V and inability to tolerate PO intake. Pt was seen and evaluated, chart reviewed. She was started on BID cipro for UTI last week but N/V persist and she sought ED evaluation. She notes resolution of vomiting and diarrhea but nausea persists. She has this chronically as well. Notes it can last all day. Not aggravated by PO intake. No relieving measures. She is on PPI BID. She had tried to reduce this in that past but had return of epigastric pain. She has history of gastric ulcer in 2016, with repeat EGD with evidence of healing. She has chronic constipation with lower abd cramping, no black or bloody stools. Lfts normal on admission. She is hypertensive, VSS otherwise WNL. RUQ US 08/13/17: No acute sonographic abnormality is identified in the right upper quadrant. No gallstones are seen. Hepatomegaly and hepatic steatosis. Images of the right kidney suggest medical renal disease CT ABD/Pelvis 08/11/17: No evidence of bowel obstruction. No evidence of free air Left-sided nephrolithiasis. No evidence of hydronephrosis Normal appendix. No evidence of acute diverticulitis Bilateral sacroiliitis Chest XR 08/11/17: No active disease in the chest. Past Medical/Surgical History Medical Problems: (1) Anemia Status: Chronic (2) CHF (congestive heart failure) Status: Acute (3) Creatinine elevation Status: Acute (4) Elevated bilirubin Status: Acute (5) Epigastric abdominal pain Status: Acute (6) Fever Status: Acute (7) Generalized pain Status: Acute (8) HTN (hypertension) Status: Acute (9) Hypertension Status: Acute (10) Hypokalemia Status: Acute (11) Nausea vomiting and diarrhea Status: Acute Past Medical History: CKD, anemia, nausea, abd pain, constipation, HTN Past Surgical History: EGD x 2, Family History Diabetes mellitus FHx: heart disease Hypertension Social History Smoking Status: Never Smoker Alcohol Use: none Drug Use: none Marital Status: single Housing Status: lives with family Occupation Status: unemployed Allergies Coded Allergies: No Known Allergies (Verified , 06/15/17) Current Medications Home Meds and Scripts Medications Dose Route/Sig Max Daily Dose Days Date Category Protonix (Pantoprazole Sodium) 40 Mg Tab 40 Mg PO BID 04/30/16 Reported Phoslo 667 Mg (Calcium Acetate) 667 Mg Cap 667 Mg PO TIDM 05/27/15 Rx Hydralazine HCl 50 Mg Tab 50 Mg PO QID 05/27/15 Rx Labetalol Hcl 200 Mg Tab 400 Mg PO BID 05/23/15 Reported Review of Systems Constitutional: No fever, No chills Respiratory: No cough Cardiac: No chest pain Abdomen: + nausea, No pain, No vomiting, No diarrhea, No constipation, No GI bleeding Physical Exam Date Time Temp Pulse Resp B/P (MAP) Pulse Ox O2 Delivery O2 Flow Rate FiO2 08/14/17 14:22 37.0 90 16 135/58 (83) 95 Room Air 08/14/17 12:15 92 117/89 08/14/17 12:00 67 128/104 08/14/17 12:00 93 Room Air 08/14/17 11:45 80 129/87 08/14/17 11:30 79 127/83 08/14/17 11:15 79 125/82 08/14/17 11:00 80 122/70 08/14/17 10:45 78 135/85 08/14/17 10:30 81 135/86 08/14/17 10:15 78 139/93 08/14/17 10:00 79 135/91 08/14/17 09:40 37.1 86 145/97 (113) 08/14/17 08:06 191/112 (138) 08/14/17 08:00 93 Room Air 08/14/17 07:51 36.7 77 16 91/63 (72) 93 Room Air 08/14/17 04:28 168/114 (132) 08/14/17 04:00 Room Air 08/14/17 03:38 37.3 81 18 196/110 (138) 98 Room Air 08/14/17 00:00 Room Air 08/13/17 23:37 37.2 84 18 158/99 (118) 98 Room Air 08/13/17 21:00 37.1 90 20 186/118 (140) 96 Room Air 08/13/17 20:00 Room Air 08/13/17 16:00 93 Room Air 08/13/17 15:58 37.1 83 18 174/101 (125) 97 Room Air General Appearance: no apparent distress Eyes: PERRL ENT: hearing grossly normal Neck: supple Respiratory/Chest: lungs clear, normal breath sounds Cardiovascular: regular rate, rhythm Abdomen: normal bowel sounds, soft, no organomegaly, no pulsatile mass, + tenderness (bilateral lower quadrant tenderness, no guarding) Neurologic/Psych: alert, normal mood/affect, oriented x 3 Skin: warm/dry, no rash Laboratory Results Last 24 Hours Test 08/14/17 06:53 White Blood Count 6.97 K/uL Red Blood Count 2.82 M/uL Hemoglobin 9.2 g/dL Hematocrit 29.2 % Mean Corpuscular Volume 103.5 fL Mean Corpuscular Hemoglobin 32.6 pg Mean Corpuscular Hemoglobin Concent 31.5 g/dl RDW Standard Deviation 57.5 fL RDW Coefficient of Variation 15.3 % Platelet Count 248 K/uL Mean Platelet Volume 8.9 fL Sodium Level 136 mmol/L Potassium Level 3.3 mmol/L Chloride Level 100 mmol/L Carbon Dioxide Level 25 mmol/L Anion Gap 11.0 mmol/L Blood Urea Nitrogen 37 mg/dl Creatinine 9.37 mg/dl Est Creatinine Clear Calc Drug Dose 9.8 ml/min Estimated GFR () 5.6 Estimated GFR (Non- 4.8 BUN/Creatinine Ratio 4.0 Random Glucose 84 mg/dl Calcium Level 7.1 mg/dl Impression Patient is a 36 year old female w/ ESRD on dialysis three times a week who presented w/ N/V/D and UTI despite Cipro BID, notes resolution of vomiting and diarrhea but with persistent nausea. She has history of gastric ulcer in 2016, on PPI BID, no NSAIDs use. Differentials include gastric ulcer, gastritis, constipation, IBS, ESRD, viral gastroenteritis. I saw and evaluated the patient on 08/14/17 with Lacy Luque. She notes having several of worsening nausea. She has had a history of peptic ulcer disease with her last upper endoscopy about 1.5 years ago. She is presently in Protonix twice daily denies having fevers chills sweats or dark sticky stool. Physical examination No obvious distress Mild abdominal tenderness nonfocal Impression: Patient with a history of epigastric discomfort and nausea. Given her history and fact she is on was daily proton pump inhibitor I doubt that she had peptic ulcer disease. I would suggest further evaluation with a KUB to evaluate for evidence of obstipation. If her nausea persists we could certainly consider an upper endoscopy although I suspect this is unlikely to be fruitful. Another cause of her nausea could be related to her long-standing renal failure or even gastroparesis. Plan - continue PPI BID for now - add Carafate slurry BID - KUB today - Gastric emptying scan as outpatient - Will re-evaluate tomorrow, consider EGD Friday or as outpatient pending progress GI will follow. Please call with any questions or concerns.
--- NOTE | 2017-08-14 15:58 | DIAGNOSTIC IMAGING REPORT ---
KUB CLINICAL HISTORY: Generalized abdominal pain. Nausea. FINDINGS: 2 AP supine abdominal radiographs are correlated with abdominal CT dated 08/11/2017. There is a nonobstructed abdominal bowel gas pattern noting moderate to severe constipation. No evidence of intraperitoneal free air is seen on these supine views. A nonobstructing left renal calculus is again identified. Numerous phleboliths are seen in the pelvis. The bony structures appear intact. IMPRESSION: 1. Moderate to severe constipation. 2. No bowel obstruction is seen. 3. A nonobstructing left renal calculus is again noted. Electronically signed by: Arian Seth M.D. 08/14/2017 3:56 PM Dictated Date/Time: 08/14/2017 3:55 PM
[2017-08-14] MEDS: SUCRALFATE 1 GM/10 ML UDC PO SCH (21:05)
[2017-08-14] MEDS: CEFTRIAXONE SOD INJ 1 GM in DEXTROSE 5% ADD-VANTAGE 50ML 50 ML IV SCH (21:49)
[2017-08-15] VITALS (7 sets, daily range): BP systolic 120–177; BP diastolic 79–111; PULSE 90–102; TEMP 36.8–37; O2SAT 96–98
[2017-08-15] MEDS: PROCHLORPERAZINE INJ 5 MG in SYRINGE 4 ML IV PRN ×2 (08:11→21:41)
[2017-08-15] MEDS: CALCIUM ACETATE 667MG GELCAP PO SCH ×3 (08:12→16:43)
[2017-08-15] MEDS: SUCRALFATE 1 GM/10 ML UDC PO SCH ×2 (08:13→20:22)
[2017-08-15] MEDS: AMLODIPINE BESYLATE 5 MG TAB PO SCH (08:14)
[2017-08-15] MEDS: LABETALOL HCL 200 MG TAB PO SCH ×2 (08:14→20:20)
[2017-08-15] MEDS: PANTOprazole SOD 40 MG TAB PO SCH ×2 (08:14→20:23)
[2017-08-15] MEDS: HEPARIN SOD 5000 UNIT/0.5 ML CARP SQ SCH ×2 (08:17→20:29)
[2017-08-15] MEDS: HYDROmorphone INJ 0.5 MG/0.5 ML SYR IV PRN ×2 (08:24→16:14)
--- NOTE | 2017-08-15 08:50 | Gastroenterology Progress Note ---
Progress Note Date of Service: Aug 15, 2017 Subjective Pt evaluation today including: conversation w/ patient, physical exam, chart review, lab review Pt was seen and evaluated, chart reviewed. No acute events overnight. Remains nauseated with diffuse abdominal cramping. No BM since admission. No vomiting. Denies fever, chills, CP, SOB. Morning labs are pending. She is hypertensive this AM. KUB 08/14/17: Moderate to severe constipation. No bowel obstruction is seen. A nonobstructing left renal calculus is again noted. RUQ US 08/13/17: No acute sonographic abnormality is identified in the right upper quadrant. No gallstones are seen. Hepatomegaly and hepatic steatosis. Images of the right kidney suggest medical renal disease CT ABD/Pelvis 08/11/17: No evidence of bowel obstruction. No evidence of free air Left-sided nephrolithiasis. No evidence of hydronephrosis Normal appendix. No evidence of acute diverticulitis Bilateral sacroiliitis Chest XR 08/11/17: No active disease in the chest. Review of Systems Constitutional: No fever, No chills Respiratory: No cough, No shortness of breath Cardiac: No chest pain Abdomen: + pain, + nausea, + constipation, No vomiting, No diarrhea Medications Current Inpatient Medications Medications (Trade) Dose Ordered Sig/[place] Route Start Time Stop Time Status Last Admin Dose Admin Heparin Sodium (Porcine) (Heparin Sq 5000 Unit/0.5ml) 5,000 unit Q12H SQ 08/11/17 22:00 09/10/17 21:59 08/15/17 08:17 5,000 UNIT Acetaminophen (Tylenol Tab) 650 mg Q4H PRN PO 08/11/17 20:00 09/10/17 19:59 08/12/17 19:12 650 MG Al Hydrox/Mg Hydrox/Simethicone (Maalox Max Susp) 15 ml Q4H PRN PO 08/11/17 20:00 09/10/17 19:59 08/13/17 10:43 15 ML Magnesium Hydroxide (Milk Of Magnesia Susp) 30 ml Q12H PRN PO 08/11/17 20:00 09/10/17 19:59 Calcium Acetate (Phoslo Cap) 667 mg TIDM PO 08/12/17 07:30 09/11/17 07:59 08/15/17 08:12 667 MG Pantoprazole Sodium (Protonix Tab) 40 mg BID PO 08/11/17 21:00 09/10/17 20:59 08/15/17 08:14 40 MG Hydralazine HCl (HydrALAZINE INJ) 10 mg Q6H PRN IV. 08/11/17 20:00 09/10/17 19:59 08/12/17 19:12 10 MG Prochlorperazine Edisylate 5 mg/ Syringe 5 ml @ 5 mls/min Q6H PRN IV 08/11/17 20:00 09/10/17 19:59 08/15/17 08:11 5 MLS/MIN Ioversol (Optiray 320) 90 ml UD PRN IV 08/11/17 20:15 08/15/17 20:14 Labetalol HCl (Normodyne IV) 10 mg Q1H PRN IV 08/11/17 21:45 09/10/17 21:44 08/14/17 04:12 10 MG Hydromorphone HCl (Dilaudid Inj) 0.5 mg Q4H PRN IV 08/12/17 02:30 08/26/17 02:29 08/15/17 08:24 0.5 MG Morphine Sulfate (MoRPHine SULFATE INJ) 2 mg Q4H PRN IV 08/12/17 11:45 08/26/17 11:44 08/13/17 22:00 2 MG Hydralazine HCl (Apresoline Tab) 100 mg QID PO 08/12/17 21:00 09/10/17 20:59 08/15/17 08:13 100 MG Amlodipine Besylate (Norvasc Tab) 10 mg QAM PO 08/14/17 09:00 09/13/17 08:59 08/15/17 08:14 10 MG Labetalol HCl (Normodyne Tab) 800 mg BID PO 08/14/17 21:00 09/10/17 20:59 08/15/17 08:14 800 MG Sucralfate (Carafate Susp) 1 gm BID PO 08/14/17 21:00 09/13/17 20:59 08/15/17 08:13 1 GM Objective Vital Signs Date Time Temp Pulse Resp B/P (MAP) Pulse Ox O2 Delivery O2 Flow Rate FiO2 08/15/17 07:16 37.0 98 16 162/83 (109) 98 08/15/17 04:00 Room Air 08/15/17 03:27 36.9 90 18 157/106 (123) 97 Room Air 08/15/17 00:06 36.9 92 18 146/87 (106) 96 Room Air 08/15/17 00:00 Room Air 08/14/17 20:00 97 Room Air 08/14/17 19:05 36.9 84 22 146/93 (110) 97 Room Air 08/14/17 16:00 98 Room Air 08/14/17 15:48 37.4 89 20 124/91 (102) 98 Room Air 08/14/17 14:22 37.0 90 16 135/58 (83) 95 Room Air 08/14/17 13:43 36.9 81 129/90 (103) 08/14/17 13:30 64 126/64 08/14/17 13:15 86 113/78 08/14/17 13:00 87 110/80 08/14/17 12:45 86 120/78 08/14/17 12:30 86 109/67 08/14/17 12:15 92 117/89 08/14/17 12:00 67 128/104 08/14/17 12:00 93 Room Air 08/14/17 11:45 80 129/87 08/14/17 11:30 79 127/83 08/14/17 11:15 79 125/82 08/14/17 11:00 80 122/70 08/14/17 10:45 78 135/85 08/14/17 10:30 81 135/86 08/14/17 10:15 78 139/93 08/14/17 10:00 79 135/91 08/14/17 09:40 37.1 86 145/97 (113) Physical Exam General Appearance: no apparent distress Eyes: PERRL ENT: hearing grossly normal Neck: supple Respiratory/Chest: lungs clear Cardiovascular: regular rate, rhythm Abdomen: normal bowel sounds, soft, no organomegaly, + tenderness (generalized tenderness) Neurologic/Psych: alert, normal mood/affect, oriented x 3 Skin: normal color, warm/dry, no rash Laboratory Results Last 24 Hours Test 08/15/17 08:37 Assessment and Plan Patient is a 36 year old female w/ ESRD on dialysis three times a week who presented w/ N/V/D and UTI despite Cipro BID, notes resolution of vomiting and diarrhea but with persistent nausea. She has history of gastric ulcer in 2016, on PPI BID, no NSAIDs use. Differentials include gastric ulcer, gastritis, constipation, IBS, ESRD, viral gastroenteritis. KUB w/ severe constipation, no evidence of obstruction. Will plan for enemas and bowel regimen, ok to continue carafate. Can plan for outpatient follow up +/- EGD given improvement of her symptoms. - continue PPI BID for now - add Carafate slurry BID - Fleets enema TID x 24 hours - Miralax 17g BID x 2 weeks - then Miralax 17g once daily - Outpatient GI follow up +/- GES +/- EGD GI will follow. Please call with any questions or concerns. I saw and evaluated the patient. Her KUB did show evidence of obstipation. I wonder if this may be contributing to her underlying nausea. Recommendations Fleets enema every 6 hours 1 day MiraLAX twice daily for 2 weeks then 1 time daily thereafter Patient may follow up with our office if there is any questions or persistent symptoms.
[2017-08-15 09:25] LABS: CALCIUM 8.1 mg/dl (8.5-10.1); CREATININE 7.88 mg/dl (0.60-1.20); POTASSIUM 3.9 mmol/L (3.5-5.1)
--- NOTE | 2017-08-15 10:59 | Nephrology Progress Note ---
Nephrology Progress Note Date of Service Aug 15, 2017. Chief Complaint F/U for end-stage renal disease on dialysis. Subjective Astrid was seen and examined in her room this morning. She continues to have nausea and abdominal discomfort . No fever or chills. No diarrhea vomiting. Urine culture was negative. Had dialysis yesterday, had 4 L UF, tolerated well. Review of Systems A complete review of systems was performed. Pertinent positives are noted above. All other systems are negative. Vital Signs Last 8 Hrs Date Time Temp Pulse Resp B/P (MAP) Pulse Ox O2 Delivery O2 Flow Rate FiO2 08/15/17 08:00 Room Air 08/15/17 07:16 37.0 98 16 162/83 (109) 98 08/15/17 04:00 Room Air 08/15/17 03:27 36.9 90 18 157/106 (123) 97 Room Air Last Recorded Weight Weight (Kilograms): 106.600 Physical Exam GENERAL: young female, Obese, AAA x 3, pleasant, healthy-appearing, not in any distress. NECK: Supple, no JVD. RESPIRATORY: Normal breathing efforts, no accessory muscle use, clear to auscultation bilaterally, no wheezes or rales. CARDIOVASCULAR: S1, S2 normal, rate rhythm regular. EXTREMITY: No lower extremity edema NEURO: speech fluent. PSYCHIATRY: Normal mood and judgment Family History Diabetes mellitus FHx: heart disease Hypertension Social History Smoking Status: Former smoker Drug Use: none Marital Status: single Housing Status: lives with family (lives w/her two kids, age 13 and 10) Occupation: unemployed Laboratory Results Past 24 Hours 08/15/17 08:37 Test 08/15/17 08:37 Anion Gap 12.0 mmol/L (3-11) Est Creatinine Clear Calc Drug Dose 11.6 ml/min Estimated GFR () 6.9 Estimated GFR (Non- 5.9 BUN/Creatinine Ratio 4.0 (10-20) Calcium Level 8.1 mg/dl (8.5-10.1) Allergies Coded Allergies: No Known Allergies (Verified , 06/15/17) Medications Current Inpatient Medications Medications (Trade) Dose Ordered Sig/[place] Route Start Time Stop Time Status Last Admin Dose Admin Heparin Sodium (Porcine) (Heparin Sq 5000 Unit/0.5ml) 5,000 unit Q12H SQ 08/11/17 22:00 09/10/17 21:59 12/8/17 08:17 5,000 UNIT Acetaminophen (Tylenol Tab) 650 mg Q4H PRN PO 08/11/17 20:00 09/10/17 19:59 08/12/17 19:12 650 MG Al Hydrox/Mg Hydrox/Simethicone (Maalox Max Susp) 15 ml Q4H PRN PO 08/11/17 20:00 09/10/17 19:59 08/13/17 10:43 15 ML Magnesium Hydroxide (Milk Of Magnesia Susp) 30 ml Q12H PRN PO 08/11/17 20:00 09/10/17 19:59 Calcium Acetate (Phoslo Cap) 667 mg TIDM PO 08/12/17 07:30 09/11/17 07:59 08/15/17 08:12 667 MG Pantoprazole Sodium (Protonix Tab) 40 mg BID PO 08/11/17 21:00 09/10/17 20:59 08/15/17 08:14 40 MG Hydralazine HCl (HydrALAZINE INJ) 10 mg Q6H PRN IV. 08/11/17 20:00 09/10/17 19:59 08/12/17 19:12 10 MG Prochlorperazine Edisylate 5 mg/ Syringe 5 ml @ 5 mls/min Q6H PRN IV 08/11/17 20:00 09/10/17 19:59 08/15/17 08:11 5 MLS/MIN Ioversol (Optiray 320) 90 ml UD PRN IV 08/11/17 20:15 08/15/17 20:14 Labetalol HCl (Normodyne IV) 10 mg Q1H PRN IV 08/11/17 21:45 09/10/17 21:44 08/14/17 04:12 10 MG Hydromorphone HCl (Dilaudid Inj) 0.5 mg Q4H PRN IV 08/12/17 02:30 08/26/17 02:29 08/15/17 08:24 0.5 MG Morphine Sulfate (MoRPHine SULFATE INJ) 2 mg Q4H PRN IV 08/12/17 11:45 08/26/17 11:44 08/13/17 22:00 2 MG Hydralazine HCl (Apresoline Tab) 100 mg QID PO 08/12/17 21:00 09/10/17 20:59 08/15/17 08:13 100 MG Amlodipine Besylate (Norvasc Tab) 10 mg QAM PO 08/14/17 09:00 09/13/17 08:59 08/15/17 08:14 10 MG Labetalol HCl (Normodyne Tab) 800 mg BID PO 08/14/17 21:00 09/10/17 20:59 08/15/17 08:14 800 MG Sucralfate (Carafate Susp) 1 gm BID PO 08/14/17 21:00 09/13/17 20:59 08/15/17 08:13 1 GM Impression (1) End stage renal failure on dialysis (2) Hypertensive urgency (3) Urinary tract infection (4) Secondary hyperparathyroidism of renal origin (5) Anemia 36 y old female with history of end-stage renal disease secondary to hypertensive nephrosclerosis,on hemodialysis Friday, , Friday via right radiocephalic AV fistula at [facility]. Admitted with urinary tract infection with E coli, failed outpatient antibiotic. She has history of high weight gain and poorly-controlled HTN and dietary noncompliance. Today she is due for dialysis and currently blood pressure running high. Overall she feels slightly better, nausea and abdominal pain improved. Did have any episode of vomiting or diarrhea. Denies dysuria. Electrolyte acceptable. Workup including CT abdomen pelvis and right upper quadrant ultrasound was unremarkable. KUB showed constipation but no free air. She was continued on Protonix 40 twice a day, started on sucralfate per GI recommendation. Tentatively planning to do EGD Friday possibly as an outpatient as patient has prior history of gastric ulcer. Recommendations --had hemodialysis yesterday,with 3 K bath, tolerated 4 liters UF - avoid IV fluid -- HD tomorrow --continued Nephrocaps and renal diet --dose medications for GFR less than 10 --continue on current antihypertensive medications and low-salt diet. --MARIO 4000 units x 1 dose given on 08/12/17 --continue on phosphate binders with meals. Will follow
[2017-08-15] MEDS: MoRPHine SULFATE 2 MG/ML CARP IV PRN (13:03)
--- NOTE | 2017-08-15 15:14 | Progress Note ---
Subjective Date of Service: Aug 15, 2017. Subjective this pt is feeling slightly better, she still has not had a bowel movement, GI medicine wants enemas for 24 hours, will have dialysis 08/16 Problem List Medical Problems: (1) Anemia Status: Chronic (2) CHF (congestive heart failure) Status: Acute (3) Creatinine elevation Status: Acute (4) Elevated bilirubin Status: Acute (5) Epigastric abdominal pain Status: Acute (6) Fever Status: Acute (7) Generalized pain Status: Acute (8) HTN (hypertension) Status: Acute (9) Hypertension Status: Acute (10) Hypokalemia Status: Acute (11) Nausea vomiting and diarrhea Status: Acute Review of Systems Constitutional: No fever, No chills, No weakness Respiratory: No cough, No shortness of breath, No dyspnea on exertion Cardiac: No chest pain, No edema Abdomen: + pain, + nausea, + constipation, No vomiting, No diarrhea Musculoskeletal: No joint pain, No muscle pain, No swelling Objective Vital Signs Date Time Temp Pulse Resp B/P (MAP) Pulse Ox O2 Delivery O2 Flow Rate FiO2 08/15/17 11:14 36.8 91 20 120/79 (93) 96 Room Air 08/15/17 11:04 37.0 98 16 98 2.0 08/15/17 08:00 Room Air 08/15/17 07:16 37.0 98 16 162/83 (109) 98 08/15/17 04:00 Room Air 08/15/17 03:27 36.9 90 18 157/106 (123) 97 Room Air 08/15/17 00:06 36.9 92 18 146/87 (106) 96 Room Air 08/15/17 00:00 Room Air 08/14/17 20:00 97 Room Air 08/14/17 19:05 36.9 84 22 146/93 (110) 97 Room Air 08/14/17 16:00 98 Room Air 08/14/17 15:48 37.4 89 20 124/91 (102) 98 Room Air Physical Exam General Appearance: WD/WN, + mild distress, + obese Neck: supple, no JVD Respiratory/Chest: chest non-tender, lungs clear, normal breath sounds Cardiovascular: regular rate, rhythm, no murmur Abdomen: soft, + guarding, + tenderness Extremities: no pedal edema, no calf tenderness Neurologic/Psychiatric: alert, oriented x 3 Laboratory Results Last 24 Hours Test 08/15/17 08:37 Sodium Level 133 mmol/L Potassium Level 3.9 mmol/L Chloride Level 98 mmol/L Carbon Dioxide Level 23 mmol/L Anion Gap 12.0 mmol/L Blood Urea Nitrogen 32 mg/dl Creatinine 7.88 mg/dl Est Creatinine Clear Calc Drug Dose 11.6 ml/min Estimated GFR () 6.9 Estimated GFR (Non- 5.9 BUN/Creatinine Ratio 4.0 Random Glucose 106 mg/dl Calcium Level 8.1 mg/dl Assessment and Plan Abdominal pain/nausea - CT did not show any acute GI process, repeat ultrasound did not show any cholelithiasis GI consult appreciated we'll pursue possible gastroparesis from diabetes or possible peptic ulcer disease, Carafate, is on scheduled enemas, in hopes constipation is root of her issue Urine culture present on admission- Culture from Friday reviewed, was E Coli, > 100,000 CFU, pansensitive - last day of abx 08/14 Hypertensive urgency blood pressures slightly improved with increased labetalol to 800 bid 08/14 - continue hydralazine - will try to reduce hydralazine dosing ESRD- nephro consulted for continued dialysis management - dialysis Friday VTE: SCDs Code status: Full Documented By: David Raines
[2017-08-15] MEDS: POLYETHYLENE (MIRALAX) 17 GM PACK PO SCH (20:19)
[2017-08-15] MEDS: SOD PHOSPHATE/SOD BIPHOSPHATE ENEMA 132 ML BTL PR SCH (22:54)
[2017-08-16] VITALS (20 sets, daily range): BP systolic 107–164; BP diastolic 57–107; PULSE 81–100; TEMP 36.2–37; O2SAT 96–98
[2017-08-16] MEDS: SOD PHOSPHATE/SOD BIPHOSPHATE ENEMA 132 ML BTL PR SCH ×2 (08:00→14:00)
[2017-08-16] MEDS: PANTOprazole SOD 40 MG TAB PO SCH ×2 (08:47→21:38)
[2017-08-16] MEDS: CALCIUM ACETATE 667MG GELCAP PO SCH ×3 (08:47→16:38)
[2017-08-16] MEDS: SUCRALFATE 1 GM/10 ML UDC PO SCH ×2 (08:47→21:37)
[2017-08-16] MEDS: LABETALOL HCL 200 MG TAB PO SCH ×2 (08:49→21:37)
[2017-08-16] MEDS: AMLODIPINE BESYLATE 5 MG TAB PO SCH (08:50)
[2017-08-16] MEDS: PROCHLORPERAZINE INJ 5 MG in SYRINGE 4 ML IV PRN ×2 (09:51→22:50)
--- NOTE | 2017-08-16 10:49 | Nephrology Progress Note ---
Nephrology Progress Note Date of Service Aug 16, 2017. Chief Complaint F/U for end-stage renal disease on dialysis. Subjective Astrid was seen and examined in her room this morning. She continues to have nausea and abdominal discomfort, has constipation but she refused enema. No fever or chills. No diarrhea, vomiting. Urine culture was negative. Review of Systems A complete review of systems was performed. Pertinent positives are noted above. All other systems are negative. Vital Signs Last 8 Hrs Date Time Temp Pulse Resp B/P (MAP) Pulse Ox O2 Delivery O2 Flow Rate FiO2 08/16/17 10:30 84 135/77 08/16/17 10:15 84 140/87 08/16/17 10:05 81 142/86 08/16/17 10:00 37.0 83 156/96 (116) 08/16/17 07:25 36.5 92 18 164/107 (126) 98 Room Air Last Recorded Weight Weight (Kilograms): 106.500 Physical Exam GENERAL: young female, Obese, AAA x 3, pleasant, healthy-appearing, not in any distress. NECK: Supple, no JVD. RESPIRATORY: Normal breathing efforts, no accessory muscle use, clear to auscultation bilaterally, no wheezes or rales. CARDIOVASCULAR: S1, S2 normal, rate rhythm regular. EXTREMITY: No lower extremity edema NEURO: speech fluent. PSYCHIATRY: Normal mood and judgment Family History Diabetes mellitus FHx: heart disease Hypertension Social History Smoking Status: Former smoker Drug Use: none Marital Status: single Housing Status: lives with family (lives w/her two kids, age 13 and 10) Occupation: unemployed Allergies Coded Allergies: No Known Allergies (Verified , 06/15/17) Medications Current Inpatient Medications Medications (Trade) Dose Ordered Sig/[place] Route Start Time Stop Time Status Last Admin Dose Admin Heparin Sodium (Porcine) (Heparin Sq 5000 Unit/0.5ml) 5,000 unit Q12H SQ 08/11/17 22:00 09/10/17 21:59 08/15/17 20:29 5,000 UNIT Acetaminophen (Tylenol Tab) 650 mg Q4H PRN PO 08/11/17 20:00 09/10/17 19:59 08/12/17 19:12 650 MG Al Hydrox/Mg Hydrox/Simethicone (Maalox Max Susp) 15 ml Q4H PRN PO 08/11/17 20:00 09/10/17 19:59 08/13/17 10:43 15 ML Magnesium Hydroxide (Milk Of Magnesia Susp) 30 ml Q12H PRN PO 08/11/17 20:00 09/10/17 19:59 Calcium Acetate (Phoslo Cap) 667 mg TIDM PO 08/12/17 07:30 09/11/17 07:59 08/16/17 08:47 667 MG Pantoprazole Sodium (Protonix Tab) 40 mg BID PO 08/11/17 21:00 09/10/17 20:59 08/16/17 08:47 40 MG Hydralazine HCl (HydrALAZINE INJ) 10 mg Q6H PRN IV. 08/11/17 20:00 09/10/17 19:59 08/12/17 19:12 10 MG Prochlorperazine Edisylate 5 mg/ Syringe 5 ml @ 5 mls/min Q6H PRN IV 08/11/17 20:00 09/10/17 19:59 08/16/17 09:51 5 MLS/MIN Labetalol HCl (Normodyne IV) 10 mg Q1H PRN IV 08/11/17 21:45 09/10/17 21:44 08/14/17 04:12 10 MG Hydromorphone HCl (Dilaudid Inj) 0.5 mg Q4H PRN IV 08/12/17 02:30 08/26/17 02:29 08/15/17 16:14 0.5 MG Morphine Sulfate (MoRPHine SULFATE INJ) 2 mg Q4H PRN IV 08/12/17 11:45 08/26/17 11:44 08/15/17 13:03 2 MG Amlodipine Besylate (Norvasc Tab) 10 mg QAM PO 08/14/17 09:00 09/13/17 08:59 08/16/17 08:50 10 MG Labetalol HCl (Normodyne Tab) 800 mg BID PO 08/14/17 21:00 09/10/17 20:59 08/16/17 08:49 800 MG Sucralfate (Carafate Susp) 1 gm BID PO 08/14/17 21:00 09/13/17 20:59 08/16/17 08:47 1 GM Sodium Biphosphate/ Sodium Phosphate (Fleet Enema) 132 ml TID AL 08/15/17 20:00 08/16/17 19:59 Polyethylene (Miralax Powder Packet) 17 gm BID PO 08/15/17 20:00 09/14/17 19:59 08/15/17 20:19 17 GM Hydralazine HCl (Apresoline Tab) 100 mg TID PO 08/15/17 20:00 09/10/17 20:59 08/16/17 08:48 100 MG Polyethylene Glycol/ Electrolytes (Golytely Soln) 1 dose Q4H PO 08/16/17 09:00 09/15/17 08:59 Impression (1) End stage renal failure on dialysis (2) Hypertensive urgency (3) Urinary tract infection (4) Secondary hyperparathyroidism of renal origin (5) Anemia 36 y old female with history of end-stage renal disease secondary to hypertensive nephrosclerosis,on hemodialysis Friday, , Friday via right radiocephalic AV fistula at [place] dialysis unit. Admitted with urinary tract infection with E coli, failed outpatient antibiotic. She has history of high weight gain and poorly-controlled HTN and dietary noncompliance. Today she is due for dialysis and currently blood pressure running high. Overall she feels slightly better, nausea and abdominal pain improved. Did have any episode of vomiting or diarrhea. Denies dysuria. Electrolyte acceptable. Workup including CT abdomen pelvis and right upper quadrant ultrasound was unremarkable. KUB showed constipation but no free air. She was continued on Protonix 40 twice a day, started on sucralfate per GI recommendation. Tentatively planning to do EGD Friday possibly as an outpatient as patient has prior history of gastric ulcer. Her symptom seems to be related to constipation , yesterday enema was ordered but patient refused. Recommendations --schedule for hemodialysis this morning with 3 K bath - avoid IV fluid --continued Nephrocaps and renal diet --dose medications for GFR less than 10 --continue on current antihypertensive medications and low-salt diet. --MARIO 4000 units x 1 dose given on 08/12/17 --continue on phosphate binders with meals. Will follow
--- NOTE | 2017-08-16 12:31 | Progress Note ---
Subjective Date of Service: Aug 16, 2017. Subjective pt continues to look improved but still not stooling, refused enema according to nursing Problem List Medical Problems: (1) Anemia Status: Chronic (2) CHF (congestive heart failure) Status: Acute (3) Creatinine elevation Status: Acute (4) Elevated bilirubin Status: Acute (5) Epigastric abdominal pain Status: Acute (6) Fever Status: Acute (7) Generalized pain Status: Acute (8) HTN (hypertension) Status: Acute (9) Hypertension Status: Acute (10) Hypokalemia Status: Acute (11) Nausea vomiting and diarrhea Status: Acute Review of Systems Constitutional: No fever, No chills Respiratory: No cough, No shortness of breath Cardiac: No chest pain, No edema Abdomen: + pain, + nausea, + constipation, No vomiting, No diarrhea Musculoskeletal: No joint pain, No muscle pain Psychiatric: No depression symptoms, No anhedonism Objective Vital Signs Date Time Temp Pulse Resp B/P (MAP) Pulse Ox O2 Delivery O2 Flow Rate FiO2 08/16/17 12:15 93 120/57 08/16/17 12:00 81 130/74 08/16/17 11:45 88 116/62 08/16/17 11:30 86 107/59 08/16/17 11:15 86 113/76 08/16/17 11:00 86 125/75 08/16/17 10:45 86 119/71 08/16/17 10:30 84 135/77 08/16/17 10:15 84 140/87 08/16/17 10:05 81 142/86 08/16/17 10:00 37.0 83 156/96 (116) 08/16/17 08:20 Room Air 08/16/17 07:25 36.5 92 18 164/107 (126) 98 Room Air 08/16/17 00:06 36.8 85 20 146/78 (100) 96 Room Air 08/16/17 00:00 96 Room Air 08/15/17 20:29 102 177/111 (133) 08/15/17 16:00 Room Air 08/15/17 15:17 37.0 93 20 152/93 (112) 96 Room Air Physical Exam General Appearance: no apparent distress, + obese Eyes: normal inspection, sclerae normal Neck: supple, no JVD Respiratory/Chest: chest non-tender, lungs clear, normal breath sounds Cardiovascular: regular rate, rhythm, no murmur Abdomen: soft, + guarding, + tenderness Extremities: no pedal edema, no calf tenderness Neurologic/Psychiatric: alert, oriented x 3 Assessment and Plan 36 F presents with nausea and abdominal pain, on ESRD due to hypertensive nephropathy Abdominal pain/nausea - CT did not show any acute GI process, repeat ultrasound did not show any cholelithiasis GI consult suggests maybe from significant constipation no help thus far so will add go lytely, sugests to pursue possible gastroparesis from diabetes GI has recommended treatment alsofor possible peptic ulcer disease, Carafate, plus ppi Urine culture present on admission- Culture from outpt reviewed, was E Coli, > 100,000 CFU, pansensitive - last day of abx 08/14 Hypertensive urgency blood pressures improved with increased labetalol to 800 bid 08/14, added amlodipine 10 mg - continue hydralazine - will try to reduce hydralazine dosing back to 50 tid ESRD- nephro consulted for continued dialysis management - dialysis Friday Anemia of chronic disease managed by nephrology, iron has not been checked for sometime, will repeat Hypokalemia replete Hypocalcemia, with low albumen corrects, this is likely due to diet and renal disease VTE: SCDs Code status: Full Documented By: David Raines
[2017-08-16] MEDS: POLYETHYLENE (MIRALAX) 17 GM PACK PO SCH ×2 (14:15→21:37)
[2017-08-16] MEDS: HYDROmorphone INJ 0.5 MG/0.5 ML SYR IV PRN ×2 (14:19→22:33)
[2017-08-16] MEDS: HEPARIN SOD 5000 UNIT/0.5 ML CARP SQ SCH ×2 (14:24→21:47)
[2017-08-16] MEDS: MoRPHine SULFATE 2 MG/ML CARP IV PRN (16:35)
[2017-08-16] MEDS: LAVAGE SOLUTION 4000ML PO SCH ×2 (16:36→21:38)
[2017-08-17] VITALS: O2SAT 96
[2017-08-17 00:44] VITALS: BP 135/83; PULSE 91; TEMP 36.5; O2SAT 98
[2017-08-17] MEDS: LAVAGE SOLUTION 4000ML PO SCH ×3 (00:49→09:00)
[2017-08-17] MEDS: ACETAMINOPHEN 325 MG TAB PO PRN ×2 (01:19→09:25)
[2017-08-17 06:09] LABS: HEMATOCRIT 30.4 % (37-47); HEMOGLOBIN 10.2 g/dL (12.0-16.0); MEAN CELL VOLUME 102.4 fL (80-100); MEAN CORPUSCULAR HEMOGLOBIN 34.3 pg (25-34); MEAN CORPUSCULAR HGB CONC 33.6 g/dl (32-36); MEAN PLATELET VOLUME 9.1 fL (7.4-10.4); PLATELET COUNT 262 K/uL (130-400); RED CELL DISTRIBUTION WIDTH CV 14.5 % (11.5-14.5); RED CELL DISTRIBUTION WIDTH SD 53.5 fL (36.4-46.3); WHITE BLOOD COUNT 9.38 K/uL (4.8-10.8)
[2017-08-17 07:38] VITALS: BP 156/77; PULSE 69; TEMP 36.8; O2SAT 97
[2017-08-17] MEDS: PANTOprazole SOD 40 MG TAB PO SCH ×2 (09:26→20:49)
[2017-08-17] MEDS: LABETALOL HCL 200 MG TAB PO SCH ×2 (09:26→20:50)
[2017-08-17] MEDS: SUCRALFATE 1 GM/10 ML UDC PO SCH ×4 (09:26→20:50)
[2017-08-17] MEDS: CALCIUM ACETATE 667MG GELCAP PO SCH ×3 (09:27→18:05)
[2017-08-17] MEDS: AMLODIPINE BESYLATE 5 MG TAB PO SCH (09:27)
[2017-08-17] MEDS: POLYETHYLENE (MIRALAX) 17 GM PACK PO SCH ×7 (09:27→20:49)
[2017-08-17] MEDS: PROCHLORPERAZINE INJ 5 MG in SYRINGE 4 ML IV PRN (11:00)
[2017-08-17] MEDS: HEPARIN SOD 5000 UNIT/0.5 ML CARP SQ SCH ×2 (11:02→20:50)
--- NOTE | 2017-08-17 11:35 | Nephrology Progress Note ---
Nephrology Progress Note Date of Service Aug 17, 2017. Chief Complaint F/U for end-stage renal disease on dialysis. Subjective Astrid was seen and examined in her room this morning. She had bowel movement yesterday and overall high nausea abdomen and pain seems to have started to improve. Had dialysis yesterday however, to 3 hours patient was not feeling well and dialyzer clotted and she missed almost 1 hour of dialysis yesterday. Her blood pressure has been stable volume status and electrolyte acceptable. Review of Systems A complete review of systems was performed. Pertinent positives are noted above. All other systems are negative. Vital Signs Last 8 Hrs Date Time Temp Pulse Resp B/P (MAP) Pulse Ox O2 Delivery O2 Flow Rate FiO2 08/17/17 07:38 36.8 69 18 156/77 (103) 97 Nasal Cannula 2.0 Last Recorded Weight Weight (Kilograms): 101.200 Physical Exam GENERAL: young female, Obese, AAA x 3, pleasant, healthy-appearing, not in any distress. NECK: Supple, no JVD. RESPIRATORY: Normal breathing efforts, no accessory muscle use, clear to auscultation bilaterally, no wheezes or rales. CARDIOVASCULAR: S1, S2 normal, rate rhythm regular. EXTREMITY: No lower extremity edema NEURO: speech fluent. PSYCHIATRY: Normal mood and judgment Family History Diabetes mellitus FHx: heart disease Hypertension Social History Smoking Status: Former smoker Drug Use: none Marital Status: single Housing Status: lives with family (lives w/her two kids, age 13 and 10) Occupation: unemployed Laboratory Results Past 24 Hours 08/17/17 05:45 Test 08/17/17 05:35 08/17/17 05:45 08/17/17 07:06 Iron Level mcg/dl (35-150) 62 mcg/dl (35-150) Total Iron Binding Capacity 225 mcg/dl (250-450) Red Blood Count 2.97 M/uL (4.2-5.4) Mean Corpuscular Volume 102.4 fL (80-100) Mean Corpuscular Hemoglobin 34.3 pg (25-34) Mean Corpuscular Hemoglobin Concent 33.6 g/dl (32-36) RDW Standard Deviation 53.5 fL (36.4-46.3) RDW Coefficient of Variation 14.5 % (11.5-14.5) Mean Platelet Volume 9.1 fL (7.4-10.4) Allergies Coded Allergies: No Known Allergies (Verified , 06/15/17) Medications Current Inpatient Medications Medications (Trade) Dose Ordered Sig/[place] Route Start Time Stop Time Status Last Admin Dose Admin Heparin Sodium (Porcine) (Heparin Sq 5000 Unit/0.5ml) 5,000 unit Q12H SQ 08/11/17 22:00 09/10/17 21:59 08/17/17 11:02 5,000 UNIT Acetaminophen (Tylenol Tab) 650 mg Q4H PRN PO 08/11/17 20:00 09/10/17 19:59 08/17/17 09:25 650 MG Al Hydrox/Mg Hydrox/Simethicone (Maalox Max Susp) 15 ml Q4H PRN PO 08/11/17 20:00 09/10/17 19:59 08/13/17 10:43 15 ML Magnesium Hydroxide (Milk Of Magnesia Susp) 30 ml Q12H PRN PO 08/11/17 20:00 09/10/17 19:59 Calcium Acetate (Phoslo Cap) 667 mg TIDM PO 08/12/17 07:30 09/11/17 07:59 08/17/17 09:27 667 MG Pantoprazole Sodium (Protonix Tab) 40 mg BID PO 08/11/17 21:00 09/10/17 20:59 08/17/17 09:26 40 MG Hydralazine HCl (HydrALAZINE INJ) 10 mg Q6H PRN IV. 08/11/17 20:00 09/10/17 19:59 08/12/17 19:12 10 MG Prochlorperazine Edisylate 5 mg/ Syringe 5 ml @ 5 mls/min Q6H PRN IV 08/11/17 20:00 09/10/17 19:59 08/17/17 11:00 5 MLS/MIN Labetalol HCl (Normodyne IV) 10 mg Q1H PRN IV 08/11/17 21:45 09/10/17 21:44 08/14/17 04:12 10 MG Morphine Sulfate (MoRPHine SULFATE INJ) 2 mg Q4H PRN IV 08/12/17 11:45 08/26/17 11:44 08/16/17 16:35 2 MG Amlodipine Besylate (Norvasc Tab) 10 mg QAM PO 08/14/17 09:00 09/13/17 08:59 08/17/17 09:27 10 MG Labetalol HCl (Normodyne Tab) 800 mg BID PO 08/14/17 21:00 09/10/17 20:59 08/17/17 09:26 800 MG Polyethylene (Miralax Powder Packet) 17 gm BID PO 08/15/17 20:00 09/14/17 19:59 08/17/17 09:27 17 GM Hydralazine HCl (Apresoline Tab) 50 mg TID PO 08/16/17 14:00 09/10/17 20:59 08/17/17 09:26 50 MG Sucralfate (Carafate Susp) 1 gm ACHS PO 08/17/17 11:00 09/13/17 20:59 Acetaminophen/ Hydrocodone Bitart ([place] 5/325 Tab) 1 tab Q6H PRN PO 08/17/17 10:00 08/31/17 09:59 Polyethylene (Miralax Powder Packet) 17 gm Q2H PO 08/17/17 12:00 08/17/17 20:01 Impression (1) End stage renal failure on dialysis (2) Hypertensive urgency (3) Urinary tract infection (4) Secondary hyperparathyroidism of renal origin (5) Anemia 36 y old female with history of end-stage renal disease secondary to hypertensive nephrosclerosis,on hemodialysis Friday, , Friday via right radiocephalic AV fistula at [facility] dialysis unit. Admitted with urinary tract infection with E coli, failed outpatient antibiotic. She has history of high weight gain and poorly-controlled HTN and dietary noncompliance. Today she is due for dialysis and currently blood pressure running high. Overall she feels slightly better, nausea and abdominal pain improved. Did have any episode of vomiting or diarrhea. Denies dysuria. Electrolyte acceptable. Workup including CT abdomen pelvis and right upper quadrant ultrasound was unremarkable. KUB showed constipation but no free air. She was continued on Protonix 40 twice a day, started on sucralfate per GI recommendation. Tentatively planning to do EGD Friday possibly as an outpatient as patient has prior history of gastric ulcer. Her symptom seems to be related to constipation , yesterday enema was ordered but patient refused. Patient started to have bowel movement with laxative and overall symptom improving, seems like her symptoms are mostly related to constipation.. Recommendations -- advise patient to limit fluid intake and adhered to low-potassium diet --next dialysis on Friday however will evaluate her volume status and electrolyte on Friday for any need for extra dialysis treatment --continued Nephrocaps and renal diet --dose medications for GFR less than 10 --continue on current antihypertensive medications and low-salt diet. --MARIO 4000 units x 1 dose given on 08/12/17 --continue on phosphate binders with meals. Will follow
[2017-08-17] MEDS: HYDROCODONE/ACETAMOPHEN 5/325MG TAB PO PRN ×2 (12:23→21:20)
[2017-08-17] MEDS ORDERED: NURSING VERBAL MED ORDER ONE (14:15)
[2017-08-17] MEDS ORDERED: HYDROCODONE/ACETAMOPHEN 5/325MG TAB PO ONE (14:30)
[2017-08-17] MEDS ORDERED: METOCLOPRAMIDE HCL INJ 5 MG/ML 2 ML VIAL IV STA (15:06)
[2017-08-17 15:42] VITALS: BP 145/88; PULSE 83; TEMP 36.5; O2SAT 98
--- NOTE | 2017-08-17 15:50 | DIAGNOSTIC IMAGING REPORT ---
ABDOMEN 2VIEW W/PA CHEST RTN HISTORY: 36 years-old Female ongoing abdominal pain, ?of constipation chronic generalized abdominal pain COMPARISON: KUB 08/14/2017 TECHNIQUE: PA view the chest with erect and supine views of the abdomen FINDINGS: Cardiac silhouette is upper limits of normal. No pneumothorax, pleural effusion, focal airspace consolidation or overt pulmonary edema. Bones of the chest appear grossly intact. 5 mm calculus of the left kidney redemonstrated which is unchanged. There are multiple air-fluid levels noted throughout bowel of the central abdomen which is likely within small bowel. Nonobstructive bowel gas pattern. Mild to moderate stool volume of the descending colon. There are phleboliths of the pelvis. IMPRESSION: 1. Nonobstructive bowel gas pattern. 2. Scattered air-fluid levels within bowel of the central abdomen suggest ileus or enteritis. 3. Unchanged 5 mm left renal calculus. The above report was generated using voice recognition software. It may contain grammatical, syntax or spelling errors. Electronically signed by: Aden Perez M.D. 08/17/2017 3:49 PM Dictated Date/Time: 08/17/2017 3:47 PM
--- NOTE | 2017-08-17 16:02 | Progress Note ---
Subjective Date of Service: Aug 17, 2017. Subjective Pt evaluation today including: conversation w/ patient, physical exam, chart review, lab review, review of studies (CT abd, RUQ u/s, abd x-rays, etc), review of inpatient medication list Pain: abdomen - especially upper/epigastric PO Intake: able to tolerate breakfast - some nausea after still w/ ongoing abdominal pain had very tiny stool yesterday (liquid) and states she didn't feel much better/ different after such refused go-lytely prep yesterday night no emesis still able to eat meals despite her symptoms no RUQ pain, chest pain or back pain Problem List Medical Problems: (1) Anemia Status: Chronic (2) CHF (congestive heart failure) Status: Acute (3) Creatinine elevation Status: Acute (4) Elevated bilirubin Status: Acute (5) Epigastric abdominal pain Status: Acute (6) Fever Status: Acute (7) Generalized pain Status: Acute (8) HTN (hypertension) Status: Acute (9) Hypertension Status: Acute (10) Hypokalemia Status: Acute (11) Nausea vomiting and diarrhea Status: Acute Review of Systems Constitutional: No fever, No chills Respiratory: No cough, No shortness of breath Cardiac: No chest pain, No orthopnea Abdomen: + pain, + nausea, + constipation, No vomiting, No GI bleeding Objective Vital Signs Date Time Temp Pulse Resp B/P (MAP) Pulse Ox O2 Delivery O2 Flow Rate FiO2 08/17/17 07:38 36.8 69 18 156/77 (103) 97 Nasal Cannula 2.0 08/17/17 00:44 36.5 91 20 135/83 (100) 98 Room Air 08/17/17 00:00 96 Room Air 08/16/17 21:48 85 148/95 (112) 08/16/17 16:48 Room Air 08/16/17 16:09 36.2 97 18 147/87 (107) 98 Room Air 08/16/17 13:49 37.0 90 137/81 (99) 08/16/17 13:00 95 127/78 08/16/17 12:45 100 124/66 08/16/17 12:30 92 111/62 08/16/17 12:15 93 120/57 08/16/17 12:00 81 130/74 08/16/17 11:45 88 116/62 08/16/17 11:30 86 107/59 08/16/17 11:15 86 113/76 08/16/17 11:00 86 125/75 08/16/17 10:45 86 119/71 08/16/17 10:30 84 135/77 08/16/17 10:15 84 140/87 08/16/17 10:05 81 142/86 Physical Exam General Appearance: no apparent distress ENT: pharynx normal Neck: no JVD Respiratory/Chest: lungs clear, no respiratory distress, no accessory muscle use Cardiovascular: regular rate, rhythm, no gallop Abdomen: normal bowel sounds, soft, no organomegaly, + tenderness (modest - high epigastric region) Extremities: no pedal edema, + pertinent finding (right arm fistula with + thrill ) Neurologic/Psychiatric: alert, oriented x 3 Laboratory Results Last 24 Hours Test 08/17/17 05:35 08/17/17 05:45 08/17/17 07:06 Iron Level mcg/dl 62 mcg/dl Total Iron Binding Capacity 225 mcg/dl White Blood Count 9.38 K/uL Red Blood Count 2.97 M/uL Hemoglobin 10.2 g/dL Hematocrit 30.4 % Mean Corpuscular Volume 102.4 fL Mean Corpuscular Hemoglobin 34.3 pg Mean Corpuscular Hemoglobin Concent 33.6 g/dl RDW Standard Deviation 53.5 fL RDW Coefficient of Variation 14.5 % Platelet Count 262 K/uL Mean Platelet Volume 9.1 fL Assessment and Plan 36yo female - 1. abdominal pain - extensive GI evaluation and consultation this admission. negative RUQ u/s. negative CT abd/pelvis for acute pathology. LFTs wnl. Lipase has note been checked. KUB x-ray with mod-severe constipation; despite a small stool yesterday she feels no better. Had gastric ulcers in 2016 and remains on PPI twice daily. Also is on BID carafate - will increase to QID dosing. For constipation - stop go-lytely (she is refusing it any way) and change to miralax 1 dose q2h x 5 doses. If constipation resolves and pain continues then would consider asking GI to perform EGD. Could also consider HIDA scan. Check lipase, lactate, LFTs, and troponin this afternoon to be complete. 2. ESRD on HD [facility] - appreciate nephrology assistance. 3. HTN - control acceptable at this time. 4. DVT proph - heparin. I explained to the patient that narcotic usage will make the constipation worse and to try to limit such if possible. Continued [facility] stay due to: inadequate oral pain control, multiple IV medications needed Discharge planning: home
[2017-08-17 16:58] LABS: ALBUMIN 3.3 gm/dl (3.4-5.0); TOTAL PROTEIN 7.8 gm/dl (6.4-8.2)
[2017-08-17 20:56] VITALS: BP 141/79; PULSE 83
[2017-08-18 00:09] VITALS: BP 105/64; PULSE 82; TEMP 36.7; O2SAT 97
[2017-08-18 05:52] VITALS: BP 157/116; PULSE 78; TEMP 36.4; O2SAT 97
[2017-08-18] MEDS: SUCRALFATE 1 GM/10 ML UDC PO SCH ×4 (05:52→21:29)
[2017-08-18 07:31] VITALS: BP 127/78; PULSE 82; TEMP 36.6; O2SAT 97
[2017-08-18] MEDS: POLYETHYLENE (MIRALAX) 17 GM PACK PO SCH ×2 (08:00→21:28)
[2017-08-18] MEDS ORDERED: POM~FLUTICASONE FUROATE-VILANTEROL 30 PUFFS/INHALER INH INH SCH (08:00)
[2017-08-18 08:14] LABS: CALCIUM 6.5 mg/dl (8.5-10.1); CREATININE 10.7 mg/dl (0.60-1.20); POTASSIUM 3.3 mmol/L (3.5-5.1)
[2017-08-18] MEDS: PANTOprazole SOD 40 MG TAB PO SCH ×2 (08:32→21:28)
[2017-08-18] MEDS: HYDROCODONE/ACETAMOPHEN 5/325MG TAB PO PRN ×2 (08:32→16:48)
[2017-08-18] MEDS: LABETALOL HCL 200 MG TAB PO SCH ×2 (08:32→21:28)
[2017-08-18] MEDS: CALCIUM ACETATE 667MG GELCAP PO SCH ×3 (08:33→16:48)
[2017-08-18] MEDS: AMLODIPINE BESYLATE 5 MG TAB PO SCH (08:33)
[2017-08-18] MEDS ORDERED: POTASSIUM CHLORIDE 10 MEQ TABCR PO ONE (10:00)
[2017-08-18] MEDS: PROCHLORPERAZINE INJ 5 MG in SYRINGE 4 ML IV PRN ×2 (10:19→18:19)
[2017-08-18] MEDS: HEPARIN SOD 5000 UNIT/0.5 ML CARP SQ SCH ×2 (10:21→21:32)
--- NOTE | 2017-08-18 10:53 | Nephrology Progress Note ---
Nephrology Progress Note Date of Service Aug 18, 2017. Chief Complaint ESRD on HD, hypertension Subjective Ms. Gallardo was seen & examined in her hospital room this morning. She reports a good response to Miralax with 4 BM overnight. She is awaiting EGD later today. Ms. Gallardo currently denies fever, angina, HATFIELD or dyspnea. She was last dialyzed on Friday for 3 hours. Dialysis was cut 45 min short due to dialyzer clotting. Review of Systems Constitutional: No fever Cardiovascular: No chest pain Respiratory: No dyspnea at rest Abdomen: No pain, No nausea, No vomiting Extremities: No leg edema A complete review of systems was performed. Pertinent positives are noted above. All other systems are negative. Vital Signs Last 8 Hrs Date Time Temp Pulse Resp B/P (MAP) Pulse Ox O2 Delivery O2 Flow Rate FiO2 08/18/17 07:31 36.6 82 20 127/78 (94) 97 Room Air Last Recorded Weight Weight (Kilograms): 102.600 Physical Exam General Appearance: no apparent distress Head: normocephalic, atraumatic Eyes: PERRL, EOMI Neck: no adenopathy Respiratory/Chest: lungs clear, no respiratory distress Cardiovascular: regular rate, rhythm, no murmur Abdomen/GI: non tender (hypoactive bowel sounds), soft Extremities/Musculoskelatal: no pedal edema, + pertinent finding (R arm AVF + bruit. Two small aneuysms noted involving the venous limb of AVF) Neurologic/Psych: alert, oriented x 3 Family History Diabetes mellitus FHx: heart disease Hypertension Social History Smoking Status: Former smoker Drug Use: none Marital Status: single Housing Status: lives with family (lives w/her two kids, age 13 and 10) Occupation: unemployed Laboratory Results Past 24 Hours 08/18/17 07:07 Test 08/17/17 16:27 08/17/17 18:17 08/18/17 07:07 Total Bilirubin 0.3 mg/dl (0.2-1) Direct Bilirubin 0.1 mg/dl (0-0.2) Aspartate Amino Transf (AST/SGOT) 15 U/L (15-37) Alanine Aminotransferase (ALT/SGPT) 17 U/L (12-78) Alkaline Phosphatase 103 U/L (45-117) Troponin I 0.040 ng/ml (0-0.045) Total Protein 7.8 gm/dl (6.4-8.2) Albumin 3.3 gm/dl (3.4-5.0) Lipase 156 U/L (73-393) Lactic Acid Level 1.4 mmol/L (0.4-2.0) Anion Gap 15.0 mmol/L (3-11) Est Creatinine Clear Calc Drug Dose 8.4 ml/min Estimated GFR () 4.7 Estimated GFR (Non- 4.1 BUN/Creatinine Ratio 4.9 (10-20) Calcium Level 6.5 mg/dl (8.5-10.1) Allergies Coded Allergies: No Known Allergies (Verified , 06/15/17) Medications Current Inpatient Medications Medications (Trade) Dose Ordered Sig/[place] Route Start Time Stop Time Status Last Admin Dose Admin Heparin Sodium (Porcine) (Heparin Sq 5000 Unit/0.5ml) 5,000 unit Q12H SQ 08/11/17 22:00 09/10/17 21:59 08/18/17 10:21 5,000 UNIT Acetaminophen (Tylenol Tab) 650 mg Q4H PRN PO 08/11/17 20:00 09/10/17 19:59 08/17/17 09:25 650 MG Al Hydrox/Mg Hydrox/Simethicone (Maalox Max Susp) 15 ml Q4H PRN PO 08/11/17 20:00 09/10/17 19:59 08/13/17 10:43 15 ML Magnesium Hydroxide (Milk Of Magnesia Susp) 30 ml Q12H PRN PO 08/11/17 20:00 09/10/17 19:59 Calcium Acetate (Phoslo Cap) 667 mg TIDM PO 08/12/17 07:30 09/11/17 07:59 08/18/17 08:33 667 MG Pantoprazole Sodium (Protonix Tab) 40 mg BID PO 08/11/17 21:00 09/10/17 20:59 08/18/17 08:32 40 MG Hydralazine HCl (HydrALAZINE INJ) 10 mg Q6H PRN IV. 08/11/17 20:00 09/10/17 19:59 08/12/17 19:12 10 MG Prochlorperazine Edisylate 5 mg/ Syringe 5 ml @ 5 mls/min Q6H PRN IV 08/11/17 20:00 09/10/17 19:59 08/18/17 10:19 5 MLS/MIN Labetalol HCl (Normodyne IV) 10 mg Q1H PRN IV 08/11/17 21:45 09/10/17 21:44 08/14/17 04:12 10 MG Morphine Sulfate (MoRPHine SULFATE INJ) 2 mg Q4H PRN IV 08/12/17 11:45 08/26/17 11:44 08/16/17 16:35 2 MG Amlodipine Besylate (Norvasc Tab) 10 mg QAM PO 08/14/17 09:00 09/13/17 08:59 08/18/17 08:33 10 MG Labetalol HCl (Normodyne Tab) 800 mg BID PO 08/14/17 21:00 09/10/17 20:59 08/18/17 08:32 800 MG Polyethylene (Miralax Powder Packet) 17 gm BID PO 08/15/17 20:00 09/14/17 19:59 08/17/17 20:49 17 GM Hydralazine HCl (Apresoline Tab) 50 mg TID PO 08/16/17 14:00 09/10/17 20:59 08/18/17 08:32 50 MG Sucralfate (Carafate Susp) 1 gm ACHS PO 08/17/17 11:00 09/13/17 20:59 08/18/17 10:19 1 GM Acetaminophen/ Hydrocodone Bitart ([place] 5/325 Tab) 1 tab Q6H PRN PO 08/17/17 10:00 08/31/17 09:59 08/18/17 08:32 1 TAB Impression (1) End stage renal failure on dialysis (2) Hypertensive urgency (3) Urinary tract infection (4) Secondary hyperparathyroidism of renal origin (5) Anemia 36 y old female with history of end-stage renal disease secondary to hypertensive nephrosclerosis,on hemodialysis Friday, , Friday via right radiocephalic AV fistula at [facility] dialysis unit. Admitted with urinary tract infection with E coli, failed outpatient antibiotic. She has history of high weight gain and poorly-controlled HTN and dietary noncompliance. Today she is due for dialysis and currently blood pressure running high. Overall she feels slightly better, nausea and abdominal pain improved. Evaluation including CT abdomen pelvis and right upper quadrant ultrasound was unremarkable. KUB showed constipation but no free air. She was continued on Protonix 40 twice a day, started on sucralfate per GI recommendation. Tentatively planning to do EGD later today as patient has prior history of gastric ulcer. Her symptom seems to be related to constipation. Patient started to have bowel movement with laxative and overall symptom improving, seems like her symptoms are mostly related to constipation.. Recommendations END STAGE RENAL DISEASE: -- No acute indication for HD today. Volume status and electrolyte balance are acceptable at this time -- Will schedule next HD for am (TTS 3.75 hr F-180NR 3K 2.5Ca, F-180NR, EDW 103 kg) -- Patient has two small aneurysms of AVF. Will monitor and ask surgery to evaluate if these enlarge HYPERTENSION: -- Blood pressure is currently well controlled -- Patient is on a redundant regimen of several vasodilators. She would likely benefit from once or twice a day dosing schedule to ensure compliance as outpatient -- Will stop Hydralazine -- Continue Labetalol BID and Amlodipine qDay. Will reduce EDW on HD by 1 kg to 102kg. ANEMIA: -- Will provide MARIO w/ HD treatments CONSTIPATION / ABD PAIN: -- On Miralax -- Await EGD results
[2017-08-18] MEDS ORDERED: TRAMADOL HCL 50 MG TAB PO PRN (11:15)
--- NOTE | 2017-08-18 11:39 | Hospitalist Progress Note ---
Hospitalist Progress Note Date of Service Aug 18, 2017. (Lian Champagne ., KEKEC) Subjective Pt evaluation today including: conversation w/ patient, physical exam, chart review, lab review, review of studies, review of inpatient medication list Pain: 9.5/10 epigastric pain PO Intake: NPO Voiding: no voiding problems The patient complains currently of 9.5/10 dull pain in her epigastric area, as well as less severe pain diffusely throughout the rest of her abdomen. She also complains of nausea but denies vomiting and complains of cold sweats. She is currently NPO for an EGD later today. She states that the pain has not improved at all since admission, and she denies any change in pain with eating. She does report having 4 loose bowel movements yesterday. She complains of general weakness and fatigue. The patient denies fevers, chills, chest pain, palpitations, claudication, cough, wheezing, shortness of breath, vomiting, dysuria, hematuria, urinary retention, paralysis, weakness, numbness and tingling. Additional Comments: See HPI for pertinent positives and negatives. All other systems reviewed and negative. (Lian Champagne ., RENNY-C) Objective Vital Signs Date Time Temp Pulse Resp B/P (MAP) Pulse Ox O2 Delivery O2 Flow Rate FiO2 08/18/17 07:31 36.6 82 20 127/78 (94) 97 Room Air 08/18/17 00:09 36.7 82 20 105/64 (78) 97 Room Air 08/17/17 23:35 Room Air 08/17/17 20:56 83 141/79 (99) 08/17/17 19:46 Room Air 08/17/17 16:00 Room Air 08/17/17 15:42 36.5 83 18 145/88 (107) 98 Room Air (Lian Champagne .RENNY-C) Physical Exam Notes: General appearance: +Obese. Well-developed, well-nourished, no apparent distress Head: Normocephalic, atraumatic Eyes: Normal inspection, PERRL, EOMI ENT: Normal ENT inspection, hearing grossly normal, pharynx normal Neck: Supple, no JVD, trachea midline Respiratory/Chest: Lungs clear to auscultation, normal breath sounds, no respiratory distress Cardiovascular: Regular rate & rhythm, no gallop, no murmur Abdomen/GI: +Abdomen diffusely TTP, most marked in epigastrium. Normal bowel sounds, soft Extremities/Musculoskeletal: Normal inspection, no calf tenderness, no pedal edema Neurological/Psych: Alert, normal mood/affect, oriented x 3 Skin: Normal color, warm/dry, no rash (Lian Champagne ., PA-C) Laboratory Results Last 24 Hours Test 08/17/17 16:27 08/17/17 18:17 08/18/17 07:07 Total Bilirubin 0.3 mg/dl Direct Bilirubin 0.1 mg/dl Aspartate Amino Transf (AST/SGOT) 15 U/L Alanine Aminotransferase (ALT/SGPT) 17 U/L Alkaline Phosphatase 103 U/L Troponin I 0.040 ng/ml Total Protein 7.8 gm/dl Albumin 3.3 gm/dl Lipase 156 U/L Lactic Acid Level 1.4 mmol/L Sodium Level 134 mmol/L Potassium Level 3.3 mmol/L Chloride Level 97 mmol/L Carbon Dioxide Level 22 mmol/L Anion Gap 15.0 mmol/L Blood Urea Nitrogen 53 mg/dl Creatinine 10.70 mg/dl Est Creatinine Clear Calc Drug Dose 8.4 ml/min Estimated GFR () 4.7 Estimated GFR (Non- 4.1 BUN/Creatinine Ratio 4.9 Random Glucose 88 mg/dl Calcium Level 6.5 mg/dl (Lian Champagne ., PA-C) Diagnostic Results Reviewed the following studies and agree with interpretation as follows: ABDOMEN 2VIEW W/PA CHEST RTN HISTORY: 36 years-old Female ongoing abdominal pain, ?of constipation chronic generalized abdominal pain COMPARISON: KUB 08/14/2017 TECHNIQUE: PA view the chest with erect and supine views of the abdomen FINDINGS: Cardiac silhouette is upper limits of normal. No pneumothorax, pleural effusion, focal airspace consolidation or overt pulmonary edema. Bones of the chest appear grossly intact. 5 mm calculus of the left kidney redemonstrated which is unchanged. There are multiple air-fluid levels noted throughout bowel of the central abdomen which is likely within small bowel. Nonobstructive bowel gas pattern. Mild to moderate stool volume of the descending colon. There are phleboliths of the pelvis. IMPRESSION: 1. Nonobstructive bowel gas pattern. 2. Scattered air-fluid levels within bowel of the central abdomen suggest ileus or enteritis. 3. Unchanged 5 mm left renal calculus. (Lian Champagne ., PA-C) Assessment and Plan 36y/o female with a history of ESRD on HD, HTN, depression with anxiety, ALDO, GERD, h/o gastric ulcer, and psoriasis who presented with abdominal pain. Epigastric pain, constipation, h/o gastric ulcers, GERD--ongoing -RUQ U/S no acute disease, no gallstones -CT abdomen/pelvis with non-obstructing renal calculi, otherwise no acute disease, no obstruction -KUB with moderate to severe constipation -Pt with 4 BMs yesterday on scheduled MiraLax q2h x 5 doses (refused bowel prep) -Continue MiraLAX BID -Chest/abdomen x-ray shows non-obstructive bowel gas pattern, scattered air- fluid levels within bowel of centra abdomen suggesting ileus vs enteritis -Afebrile, no leukocytosis -Blood and urine cultures negative -Scheduled for EGD today -Add tramadol 50 mg PO q12h prn pain -GI consulted, appreciate recs: Fleets enema every 6 hours 1 day (pt refused) . MiraLAX twice daily for 2 weeks then 1 time daily thereafter. Will perform EGD -Carafate increased to QID -Continue Protonix 40 mg PO BID -Lipase, lactate, LFTs, troponin WNL ESRD on HD -Nephrology following, appreciate recs: Dialysis tomorrow per schedule. Discontinue hydralazine, continue labetalol and amlodipine -Dialysis // HTN urgency--resolved -Hydralazine d/c'd by nephro -Continue amlodipine 10 mg PO qd and labetalol 800 mg PO BID DVT prophylaxis -Heparin 5000 units SC q12h Code Status -Level I, FULL RESUSCITATION STATUS (Lian Champagne ., PA-C) Attending Attestation: Pt seen/examined, chart reviewed, care plan d/w RENNY Champagne. I agree w/ the paul components of her documentation. Pt "feels a little better" today with less abdominal pain but the pain does remain. Worst location - high epigastric region. Multiple stools yesterday. Able to eat dinner last pm. Afebrile, VSS gen - NAD neck - no JVD heart - RRR, s1, s2, 2/6 JOSE LSB lungs - CTA b/l abd - soft, ND, no HSM, BS+, tender epigastric region ext - no edema, right arm AV fistula labs - K 3.3 A/P: abdominal pain - extensive w/u negative except for KUB x-rays (severe constipation initially). CT, u/s, labs -- otherwise wnl. despite Rx of constipation she continues, albeit to a degree, with abdominal pain. spoke with GI - plan is for EGD today. cont PPI, carafate QID in meantime. hopefully EGD will shed light on her symptoms. hypokalemia - will replace prior to EGD. Juvencio LINARES MD (Edgar Linares MD)
[2017-08-18] MEDS ORDERED: SODIUM CHLORIDE 0.9% 500ML 500 ML IV ONE (12:51)
--- NOTE | 2017-08-18 12:53 | Endo History and Physical ---
History & Physical Date of Service: Aug 18, 2017. Chief Complaint: Referring Physician: History of Present Illness Patient with Epigastric pain for EGD Past Medical History Asthma, Hypertension, Kidney Disease Past Surgical History Hx Cardiac Surgery: No Hx Internal Defibrillator: No Hx Pacemaker: No Hx Abdominal Surgery: Yes () Hx Post-Op Nausea and Vomiting: No Hx Cancer Surgery: No Hx Thoracic Surgery: No Hx Orthopedic: No Hx Urinary Tract Surgery: No Social History Smoking Status: Former Smoker Hx Substance Use: Yes (NORCO/ULTRAM) Hx Alcohol Use: No Allergies Coded Allergies: No Known Allergies (Verified , 06/15/17) Current Medications Reported Home Medications Medications Dose Route/Sig Max Daily Dose Days Date Category Protonix (Pantoprazole Sodium) 40 Mg Tab 40 Mg PO BID 04/30/16 Reported Phoslo 667 Mg (Calcium Acetate) 667 Mg Cap 667 Mg PO TIDM 05/27/15 Rx Hydralazine HCl 50 Mg Tab 50 Mg PO QID 05/27/15 Rx Labetalol Hcl 200 Mg Tab 400 Mg PO BID 05/23/15 Reported Vital Signs Weight (Kilograms): 102.600 Height (Feet): 5 Height (Inches): 4.00 Date Time Temp Pulse Resp B/P (MAP) Pulse Ox O2 Delivery O2 Flow Rate FiO2 08/18/17 12:33 37.2 87 18 154/90 (111) 100 Room Air 08/18/17 07:31 36.6 82 20 127/78 (94) 97 Room Air 08/18/17 05:52 36.4 78 20 157/116 97 Room Air 08/18/17 00:09 36.7 82 20 105/64 (78) 97 Room Air 08/17/17 23:35 Room Air 08/17/17 20:56 83 141/79 (99) 08/17/17 19:46 Room Air 08/17/17 16:00 Room Air 08/17/17 15:42 36.5 83 18 145/88 (107) 98 Room Air Physical Exam General Appearance: no apparent distress Respiratory/Chest: Auscultation: breath sounds normal Cardiovascular: Heart Auscultation: RRR Abdomen: Inspection & Palpation: soft, non-distended Assessment and Plan Stable for EGD
--- NOTE | 2017-08-18 13:57 | GI REPORT ---
Procedure Date: 08/18/2017 1:41 PM Procedure: Upper GI endoscopy Indications: Epigastric abdominal pain Medicines: Monitored Anesthesia Care Complications: No immediate complications. Estimated Blood Loss: Estimated blood loss: none. Procedure: Pre-Anesthesia Assessment: - Prior to the procedure, a History and Physical was performed, and patient medications and allergies were reviewed. The patient is competent. The risks and benefits of the procedure and the sedation options and risks were discussed with the patient. All questions were answered and informed consent was obtained. Patient identification and proposed procedure were verified by the physician and the nurse in the procedure room. Mental Status Examination: alert and oriented. Airway Examination: normal oropharyngeal airway and neck mobility. Respiratory Examination: clear to auscultation. CV Examination: normal. ASA Grade Assessment: II - A patient with mild systemic disease. After reviewing the risks and benefits, the patient was deemed in satisfactory condition to undergo the procedure. The anesthesia plan was to use monitored anesthesia care (MAC). Immediately prior to administration of medications, the patient was re-assessed for adequacy to receive sedatives. The heart rate, respiratory rate, oxygen saturations, blood pressure, adequacy of pulmonary ventilation, and response to care were monitored throughout the procedure. The physical status of the patient was re-assessed after the procedure. After obtaining informed consent, the endoscope was passed under direct vision. Throughout the procedure, the patient's blood pressure, pulse, and oxygen saturations were monitored continuously. The scope was introduced through the mouth, and advanced to the second part of duodenum. The upper GI endoscopy was accomplished without difficulty. The patient tolerated the procedure well. Findings: The examined esophagus was normal. Mild inflammation characterized by congestion (edema), erythema and granularity was found in the gastric body. Biopsies were taken with a cold forceps for Helicobacter pylori testing. Biopsies were taken with a cold forceps for histology. Verification of patient identification for the specimen was done by the physician and nurse using the patient's name and date. Localized mucosal changes characterized by black discoloration were found at the pylorus. Biopsies were taken with a cold forceps for histology. The duodenal bulb and 2nd part of the duodenum were normal. Biopsies were taken with a cold forceps for histology. Impression: - Normal esophagus. - Gastritis. Biopsied. - Dark discolored mucosa in the pylorus. Biopsied. - Normal duodenal bulb and 2nd part of the duodenum. Biopsied. Recommendation: - [facility] patient to [facility] for [facility] care. - Await pathology results. Alexandr Moreno MD 08/18/2017 1:56:43 PM This report has been signed electronically. Note Initiated On: 08/18/2017 1:41 PM I attest to the content of the Intraoperative Record and orders documented therein, exceptions below
[2017-08-18] MEDS ORDERED: METOCLOPRAMIDE HCL INJ 5 MG/ML 2 ML VIAL ONE (13:58)
[2017-08-18] MEDS ORDERED: LIDOCAINE HCL 2% 2 ML VIAL (20MG/ML) ONE (13:58)
[2017-08-18] MEDS ORDERED: PROPOFOL IV EMULSION 10 MG/ML 20 ML VIAL IV ONE (13:58)
[2017-08-18 14:44] VITALS: BP 155/83; PULSE 82; TEMP 36.5; O2SAT 100
--- NOTE | 2017-08-18 14:57 | Anesthesiology Progress Note ---
Anesthesia Post Op Note Date & Time Aug 18, 2017 at 14:57 Vital Signs Pain Intensity: 0 Vital Signs Past 12 Hours Date Time Temp Pulse Resp B/P (MAP) Pulse Ox O2 Delivery O2 Flow Rate FiO2 08/18/17 14:44 36.5 82 18 155/83 (107) 100 Room Air 08/18/17 14:32 76 18 135/99 (111) 98 Room Air 08/18/17 14:16 79 18 151/84 (106) 100 Room Air 08/18/17 14:01 78 16 133/83 (100) 99 Room Air 08/18/17 12:33 37.2 87 18 154/90 (111) 100 Room Air 08/18/17 08:30 Room Air 08/18/17 07:31 36.6 82 20 127/78 (94) 97 Room Air 08/18/17 05:52 36.4 78 20 157/116 97 Room Air Notes Mental Status: alert / awake / arousable, participated in evaluation Pt Amnestic to Procedure: Yes Nausea / Vomiting: adequately controlled Pain: adequately controlled Airway Patency, RR, SpO2: stable & adequate BP & HR: stable & adequate Hydration State: stable & adequate Anesthetic Complications: no major complications apparent
[2017-08-18 16:00] VITALS: O2SAT 100
[2017-08-18] MEDS ORDERED: ONDANSETRON 4MG OD TAB PO PRN (22:15)
[2017-08-18 23:55] VITALS: BP 124/76; PULSE 79; TEMP 36.7; O2SAT 96
[2017-08-19] VITALS (14 sets, daily range): BP systolic 105–131; BP diastolic 64–95; PULSE 72–79; TEMP 36.5–36.8; O2SAT 98
[2017-08-19] MEDS: SUCRALFATE 1 GM/10 ML UDC PO SCH ×2 (06:23→12:04)
[2017-08-19 06:24] LABS: HEMATOCRIT 26.6 % (37-47); HEMOGLOBIN 8.8 g/dL (12.0-16.0); MEAN CELL VOLUME 101.9 fL (80-100); MEAN CORPUSCULAR HEMOGLOBIN 33.7 pg (25-34); MEAN CORPUSCULAR HGB CONC 33.1 g/dl (32-36); MEAN PLATELET VOLUME 9.2 fL (7.4-10.4); PLATELET COUNT 244 K/uL (130-400); RED CELL DISTRIBUTION WIDTH CV 14.4 % (11.5-14.5); RED CELL DISTRIBUTION WIDTH SD 53.9 fL (36.4-46.3); WHITE BLOOD COUNT 7.31 K/uL (4.8-10.8)
[2017-08-19] MEDS: MoRPHine SULFATE 2 MG/ML CARP IV PRN (06:24)
[2017-08-19 06:56] LABS: CALCIUM 6.5 mg/dl (8.5-10.1); CREATININE 11.9 mg/dl (0.60-1.20); POTASSIUM 3.7 mmol/L (3.5-5.1)
[2017-08-19] MEDS ORDERED: EPOETIN ALFA 10,000 UNITS/ML VIAL IV. SCH (08:00)
[2017-08-19] MEDS: PANTOprazole SOD 40 MG TAB PO SCH (08:00)
[2017-08-19] MEDS: CALCIUM ACETATE 667MG GELCAP PO SCH ×2 (08:00→12:03)
[2017-08-19] MEDS ORDERED: HEPARIN SOD (PORCINE) 1000 UNIT/ML 10 ML VIAL IV SCH (08:00)
[2017-08-19] MEDS ORDERED: PARICALCITOL 5 MCG/ML VIAL (ZEMPLAR) IV. SCH (08:00)
[2017-08-19] MEDS: LABETALOL HCL 200 MG TAB PO SCH (08:00)
[2017-08-19] MEDS: AMLODIPINE BESYLATE 5 MG TAB PO SCH (08:00)
[2017-08-19] MEDS: POLYETHYLENE (MIRALAX) 17 GM PACK PO SCH (08:12)
--- NOTE | 2017-08-19 09:36 | Nephrology Progress Note ---
Nephrology Progress Note Date of Service Aug 19, 2017. Chief Complaint ESRD on HD, hypertension Subjective Ms. Gallardo was seen & examined in preparation for HD today. She reports that she completed her EGD yesterday. Her abdominal discomfort has improved w/ PPI therapy. She voices no new medical concerns. Review of Systems Constitutional: No fever Cardiovascular: No chest pain Respiratory: No dyspnea at rest Abdomen: No pain, No nausea, No vomiting Extremities: No leg edema A complete review of systems was performed. Pertinent positives are noted above. All other systems are negative. Vital Signs Last 8 Hrs Date Time Temp Pulse Resp B/P (MAP) Pulse Ox O2 Delivery O2 Flow Rate FiO2 08/19/17 08:55 36.5 79 119/77 (91) 08/19/17 08:00 Room Air 08/19/17 07:27 36.8 76 18 131/82 (98) 98 Room Air Last Recorded Weight Weight (Kilograms): 103.200 Physical Exam General Appearance: no apparent distress Head: normocephalic, atraumatic Eyes: PERRL, EOMI Neck: no adenopathy Respiratory/Chest: lungs clear, no respiratory distress Cardiovascular: regular rate, rhythm Abdomen/GI: normal bowel sounds, non tender, soft Extremities/Musculoskelatal: no calf tenderness, no pedal edema Neurologic/Psych: alert, oriented x 3 Family History Diabetes mellitus FHx: heart disease Hypertension Social History Smoking Status: Former smoker Drug Use: none Marital Status: single Housing Status: lives with family (lives w/her two kids, age 13 and 10) Occupation: unemployed Laboratory Results Past 24 Hours 08/19/17 05:49 08/19/17 05:49 Test 08/19/17 05:49 Red Blood Count 2.61 M/uL (4.2-5.4) Mean Corpuscular Volume 101.9 fL (80-100) Mean Corpuscular Hemoglobin 33.7 pg (25-34) Mean Corpuscular Hemoglobin Concent 33.1 g/dl (32-36) RDW Standard Deviation 53.9 fL (36.4-46.3) RDW Coefficient of Variation 14.4 % (11.5-14.5) Mean Platelet Volume 9.2 fL (7.4-10.4) Anion Gap 14.0 mmol/L (3-11) Est Creatinine Clear Calc Drug Dose 7.5 ml/min Estimated GFR () 4.2 Estimated GFR (Non- 3.6 BUN/Creatinine Ratio 5.3 (10-20) Calcium Level 6.5 mg/dl (8.5-10.1) Allergies Coded Allergies: No Known Allergies (Verified , 06/15/17) Medications Current Inpatient Medications Medications (Trade) Dose Ordered Sig/[place] Route Start Time Stop Time Status Last Admin Dose Admin Heparin Sodium (Porcine) (Heparin Sq 5000 Unit/0.5ml) 5,000 unit Q12H SQ 08/11/17 22:00 09/10/17 21:59 08/18/17 21:32 5,000 UNIT Acetaminophen (Tylenol Tab) 650 mg Q4H PRN PO 08/11/17 20:00 09/10/17 19:59 08/17/17 09:25 650 MG Al Hydrox/Mg Hydrox/Simethicone (Maalox Max Susp) 15 ml Q4H PRN PO 08/11/17 20:00 09/10/17 19:59 08/13/17 10:43 15 ML Magnesium Hydroxide (Milk Of Magnesia Susp) 30 ml Q12H PRN PO 08/11/17 20:00 09/10/17 19:59 Calcium Acetate (Phoslo Cap) 667 mg TIDM PO 08/12/17 07:30 09/11/17 07:59 08/18/17 16:48 667 MG Pantoprazole Sodium (Protonix Tab) 40 mg BID PO 08/11/17 21:00 09/10/17 20:59 08/18/17 21:28 40 MG Hydralazine HCl (HydrALAZINE INJ) 10 mg Q6H PRN IV. 08/11/17 20:00 09/10/17 19:59 08/12/17 19:12 10 MG Prochlorperazine Edisylate 5 mg/ Syringe 5 ml @ 5 mls/min Q6H PRN IV 08/11/17 20:00 09/10/17 19:59 08/18/17 18:19 5 MLS/MIN Labetalol HCl (Normodyne IV) 10 mg Q1H PRN IV 08/11/17 21:45 09/10/17 21:44 08/14/17 04:12 10 MG Amlodipine Besylate (Norvasc Tab) 10 mg QAM PO 08/14/17 09:00 09/13/17 08:59 08/18/17 08:33 10 MG Labetalol HCl (Normodyne Tab) 800 mg BID PO 08/14/17 21:00 09/10/17 20:59 08/18/17 21:28 800 MG Polyethylene (Miralax Powder Packet) 17 gm BID PO 08/15/17 20:00 09/14/17 19:59 08/19/17 08:12 17 GM Sucralfate (Carafate Susp) 1 gm ACHS PO 08/17/17 11:00 09/13/17 20:59 08/19/17 06:23 1 GM Acetaminophen/ Hydrocodone Bitart ([place] 5/325 Tab) 1 tab Q6H PRN PO 08/17/17 10:00 08/31/17 09:59 08/18/17 16:48 1 TAB Heparin Sodium (Porcine) (Heparin Iv Bolus) 2,000 unit TODAY@0800 IV 08/19/17 08:00 08/19/17 18:00 Heparin Sodium (Porcine) (Heparin Iv Bolus) 1,000 unit TODAY@0800,0900 IV 08/19/17 08:00 08/19/17 18:00 Epoetin Red (Procrit Inj) 10,000 units TODAY@0800 IV. 08/19/17 08:00 08/19/17 18:00 Paricalcitol (Zemplar Inj) 3 mcg TODAY@0800 IV. 08/19/17 08:00 08/19/17 18:00 08/19/17 09:00 3 MCG Tramadol HCl (Ultram Tab) 50 mg Q12H PRN PO 08/18/17 11:15 09/17/17 11:14 08/18/17 11:36 50 MG Sodium Chloride 500 ml @ 15 mls/hr Q24H ONCE IV 08/18/17 12:51 08/19/17 12:50 Future Hold Ondansetron HCl (Zofran Odt) 4 mg ONE PRN PO 08/18/17 22:15 09/17/17 22:14 08/18/17 22:17 4 MG Impression (1) End stage renal failure on dialysis (2) Hypertensive urgency (3) Urinary tract infection (4) Secondary hyperparathyroidism of renal origin (5) Anemia 36 y old female with history of end-stage renal disease secondary to hypertensive nephrosclerosis,on hemodialysis Friday, , Friday via right radiocephalic AV fistula at [facility]. Admitted with urinary tract infection with E coli, failed outpatient antibiotic. She has history of high weight gain and poorly-controlled HTN and dietary noncompliance. Today she is due for dialysis and currently blood pressure running high. Overall she feels slightly better, nausea and abdominal pain improved. Evaluation including CT abdomen pelvis and right upper quadrant ultrasound was unremarkable. KUB showed constipation but no free air. She was continued on Protonix 40 twice a day, started on sucralfate per GI recommendation. Tentatively planning to do EGD later today as patient has prior history of gastric ulcer. Her symptom seems to be related to constipation. Patient started to have bowel movement with laxative and overall symptom improving, seems like her symptoms are mostly related to constipation.. Recommendations END STAGE RENAL DISEASE: -- HD this am. Orders entered into EMR and HD RN notified. Will challenge EDW by 1 kg to help with bp control. -- TTS HD (3.75 hr F-180NR 3K 2.5Ca, F-180NR, EDW 103 kg) -- Patient has two small aneurysms of AVF. Will monitor and ask surgery to evaluate if these enlarge HYPERTENSION: -- Blood pressure is currently well controlled -- Continue Labetalol and Amlodipine. Hydralazine has been stopped ANEMIA: -- Will provide MARIO w/ HD treatments CONSTIPATION / ABD PAIN: -- On Miralax -- EGD results reviewed. Patient has gastritis. Area of hyperpigmentation involving the pylorus was biopsied. Histology results are pending
[2017-08-19] MEDS: HEPARIN SOD (PORCINE) 1000 UNIT/ML 10 ML VIAL IV SCH ×2 (10:00→11:00)
[2017-08-19] MEDS: HEPARIN SOD 5000 UNIT/0.5 ML CARP SQ SCH (10:00)
[2017-08-19] MEDS ORDERED: NRV5 PO (13:12)
[2017-08-19] MEDS ORDERED: SUCR1TAB PO (13:12)
[2017-08-19] MEDS ORDERED: MRLP17 PO (13:12)
[2017-08-19] MEDS ORDERED: LBT200 PO (13:12)
--- NOTE | 2017-08-19 13:33 | Discharge Instructions ---
Discharge Instructions Date of Service Aug 19, 2017. Admission Reason for Admission: Ckd, Hypertensive Urgency Discharge Discharge Diagnosis / Problem: Hypertensive urgency, constipation, gastritis Discharge Goals Goal(s): Decrease discomfort, Improve function, Diagnostic testing, Therapeutic intervention Activity Recommendations Activity Limitations: resume your previous activity (as tolerated) . Instructions / Follow-Up Instructions / Follow-Up You were admitted to the hospital with elevated blood pressure, abdominal pain, nausea and vomiting. Your blood pressure medications were adjusted, and your blood pressure is now well controlled. You received extensive imaging to evaluate the source of your abdominal pain, but this did not show any obvious cause besides constipation, which was resolved with MiraLAX. An upper endoscopy was done to further evaluate, and this revealed gastritis ( inflammation of the stomach). Biopsies were taken, and you can follow up on these with your primary care provider. Your pain is now resolved. Prior to discharge, your IV access became infiltrated during dialysis, causing your session to be cut short. It was highly recommended by the hospital team and nephrology that you remain in the hospital one more night so your fistula could be monitored and your electrolytes checked for likely another dialysis session tomorrow. As you did not want to stay in the hospital, you are being discharged, although another night stay is still recommended. Staying another night would allow for further observation and testing to help reduce your risk of worsening health and poor outcomes. By going home you therefore accept the risk of developing complications including pain, decompensation and . Medications: *Please take amlodipine (Norvasc) 10 mg by mouth daily. This is a medication for blood pressure. *Your labetalol was increased to 800 mg by mouth twice a day. *STOP hydralazine. *Please take sucralfate (Carafate) 1 gram by mouth four times a day (before each meal and bedtime) for 2 weeks. This will help coat your intestinal lining for the gastritis. *You may take MiraLAX every day to help prevent severe constipation from recurring. *Continue your home medications as prescribed. Follow up: *You will be scheduled to follow up with your primary care provider. Your PCP will follow up on the pathology reports. *Please be sure to go to your dialysis clinic tomorrow morning to have your fistula checked and receive more dialysis. Please seek medical attention if you experience fevers, chills, sweats, dizziness/lightheadedness, loss of consciousness, chest pain, shortness of breath, nausea, vomiting, numbness or tingling. Current Hospital Diet Patient's current hospital diet: Renal Diet Discharge Diet Recommended Diet: Renal Diet Pending Studies Studies pending at discharge: yes List of pending studies: Pathology reports Medical Emergencies . Who to Call and When: Medical Emergencies: If at any time you feel your situation is an emergency, please call 911 immediately. . Non-Emergent Contact Non-Emergency issues call your: Primary Care Provider, Sports Photographer . Past History Medical & Surgical History: (1) Constipation (2) Gastritis (3) Hypertensive urgency . "Provider Documentation" section prepared by Lian Champagne. . VTE Core Measure Inpt VTE Proph given/why not?: Unfractionated heparin SQ
--- NOTE | 2017-08-19 13:47 | Discharge Summary ---
Discharge Summary Date of Service Aug 19, 2017. Discharge Summary Admission Date: Aug 11, 2017 at 19:55 Discharge Date: Aug 19, 2017 Discharge Disposition: Home Principal Diagnosis: Hypertensive urgency, constipation, gastritis Problems/Secondary Diagnoses: (1) Anemia Status: Chronic ESRD on HD Depression with anxiety GERD H/o gastric ulcer Immunizations: Have You Had Influenza Vaccine: Yes Influenza Vaccine Date: Aug 31, 2013 History of Tetanus Vaccine?: utd History of Pneumococcal: No History of Hepatitis B Vaccine: No Procedures: CHEST ONE VIEW PORTABLE CLINICAL HISTORY: dyspnea, generalized pain COMPARISON STUDY: 06/15/2017 FINDINGS: The heart is mildly enlarged. There is no failure. There is no focal pulmonary consolidation. There are no pleural effusions. Lung volumes are slightly diminished.[ IMPRESSION: No active disease in the chest. CT ABD/PELVIS IV CONTRAST ONLY CLINICAL HISTORY: Generalized abdominal pain and fever COMPARISON STUDY: 06/16/2017 TECHNIQUE: Following the IV administration of 90 mL of Optiray-320, CT scan of the abdomen and pelvis was performed from the lung bases to the proximal femurs. Images are reviewed in the axial, sagittal, and coronal planes. IV contrast was administered. Contrast opacification is somewhat limited. The technicians were instructed to evaluate the patient for a possible contrast extravasation. A dose lowering technique was utilized adhering to the principles of ALARA. CT DOSE: 915.98 mGy.cm FINDINGS: Lower chest: The heart is normal in size and configuration, without pericardial effusion. The lung bases and pleural spaces are clear. Liver: The contrast-enhanced liver is normal in size, contour, and attenuation. There is no intrahepatic biliary ductal dilatation. The hepatic veins and portal veins are patent. Gallbladder: Unremarkable. Spleen: Normal in size and attenuation. Pancreas: Unremarkable. Adrenal glands: There is stable adrenal gland thickening Kidneys: There is an 8mm lower pole left renal calculus. There is no hydronephrosis. No solid renal masses are visualized. There is bilateral renal atrophy Bowel: There are no transition zones indicate bowel obstruction. Mild gastric wall thickening is likely secondary to underdistention. There is no acute diverticulitis. The appendix appears normal Peritoneum: There is no intraperitoneal free air or abdominal ascites. Vasculature: The abdominal aorta is normal in course and caliber. Adenopathy: None. Pelvic viscera: The bladder, and pelvic viscera are unremarkable. Skeletal structures: There is bilateral sacroiliitis. IMPRESSION: 1. No evidence of bowel obstruction. No evidence of free air 2. Left-sided nephrolithiasis. No evidence of hydronephrosis 3. Normal appendix. No evidence of acute diverticulitis 4. Bilateral sacroiliitis ULTRASOUND RIGHT UPPER QUADRANT ABDOMEN CLINICAL HISTORY: Nausea. COMPARISON STUDY: Abdominal CT dated 08/11/2017. TECHNIQUE: Real-time, grayscale, and color flow sonography of the right upper quadrant of the abdomen was performed. Images are reviewed in the transverse and longitudinal planes. FINDINGS: Liver: The liver is enlarged and demonstrates heterogeneously increased echotexture consistent with hepatic steatosis. There is no intrahepatic biliary ductal dilatation. The main portal vein is patent. Gallbladder: The gallbladder is normal in appearance. No gallstones are identified. There is no gallbladder wall thickening or pericholecystic fluid. A sonographic Guaman's sign is reportedly absent. The common bile duct measures up to 0.7 cm in diameter. Pancreas: Visualized portions of the pancreatic head and body are normal in appearance. Right kidney: Survey images of the right kidney show significant cortical atrophy. The right kidney appears echogenic suggesting medical renal disease. A 1.1 cm cyst is noted. There is no hydronephrosis. Ascites: None. IMPRESSION: 1. No acute sonographic abnormality is identified in the right upper quadrant. No gallstones are seen. 2. Hepatomegaly and hepatic steatosis. 3. Images of the right kidney suggest medical renal disease. KUB CLINICAL HISTORY: Generalized abdominal pain. Nausea. FINDINGS: 2 AP supine abdominal radiographs are correlated with abdominal CT dated 08/11/2017. There is a nonobstructed abdominal bowel gas pattern noting moderate to severe constipation. No evidence of intraperitoneal free air is seen on these supine views. A nonobstructing left renal calculus is again identified. Numerous phleboliths are seen in the pelvis. The bony structures appear intact. IMPRESSION: 1. Moderate to severe constipation. 2. No bowel obstruction is seen. 3. A nonobstructing left renal calculus is again noted. ABDOMEN 2VIEW W/PA CHEST RTN HISTORY: 36 years-old Female ongoing abdominal pain, ?of constipation chronic generalized abdominal pain COMPARISON: KUB 08/14/2017 TECHNIQUE: PA view the chest with erect and supine views of the abdomen FINDINGS: Cardiac silhouette is upper limits of normal. No pneumothorax, pleural effusion, focal airspace consolidation or overt pulmonary edema. Bones of the chest appear grossly intact. 5 mm calculus of the left kidney redemonstrated which is unchanged. There are multiple air-fluid levels noted throughout bowel of the central abdomen which is likely within small bowel. Nonobstructive bowel gas pattern. Mild to moderate stool volume of the descending colon. There are phleboliths of the pelvis. IMPRESSION: 1. Nonobstructive bowel gas pattern. 2. Scattered air-fluid levels within bowel of the central abdomen suggest ileus or enteritis. 3. Unchanged 5 mm left renal calculus. EGD: Procedure Date: 08/18/2017 1:41 PM Procedure: Upper GI endoscopy Indications: Epigastric abdominal pain Medicines: Monitored Anesthesia Care Complications: No immediate complications. Estimated Blood Loss: Estimated blood loss: none. Procedure: Pre-Anesthesia Assessment: - Prior to the procedure, a History and Physical was performed, and patient medications and allergies were reviewed. The patient is competent. The risks and benefits of the procedure and the sedation options and risks were discussed with the patient. All questions were answered and informed consent was obtained. Patient identification and proposed procedure were verified by the physician and the nurse in the procedure room. Mental Status Examination: alert and oriented. Airway Examination: normal oropharyngeal airway and neck mobility. Respiratory Examination: clear to auscultation. CV Examination: normal. ASA Grade Assessment: II - A patient with mild systemic disease. After reviewing the risks and benefits, the patient was deemed in satisfactory condition to undergo the procedure. The anesthesia plan was to use monitored anesthesia care (MAC). Immediately prior to administration of medications, the patient was re-assessed for adequacy to receive sedatives. The heart rate, respiratory rate, oxygen saturations, blood pressure, adequacy of pulmonary ventilation, and response to care were monitored throughout the procedure. The physical status of the patient was re-assessed after the procedure. After obtaining informed consent, the endoscope was passed under direct vision. Throughout the procedure, the patient's blood pressure, pulse, and oxygen saturations were monitored continuously. The scope was introduced through the mouth, and advanced to the second part of duodenum. The upper GI endoscopy was accomplished without difficulty. The patient tolerated the procedure well. Findings: The examined esophagus was normal. Mild inflammation characterized by congestion (edema), erythema and granularity was found in the gastric body. Biopsies were taken with a cold forceps for Helicobacter pylori testing. Biopsies were taken with a cold forceps for histology. Verification of patient identification for the specimen was done by the physician and nurse using the patient's name and date. Localized mucosal changes characterized by black discoloration were found at the pylorus. Biopsies were taken with a cold forceps for histology. The duodenal bulb and 2nd part of the duodenum were normal. Biopsies were taken with a cold forceps for histology. Impression: - Normal esophagus. - Gastritis. Biopsied. - Dark discolored mucosa in the pylorus. Biopsied. - Normal duodenal bulb and 2nd part of the duodenum. Biopsied. Recommendation: - [facility]. - Await pathology results. Consultations: Gastroenterology Nephrology Medication Reconciliation New Medications: Amlodipine Besylate (Amlodipine Besylate) 5 Mg Tab 10 MG PO QAM for 30 Days, #30 TAB Labetalol HCl (Labetalol HCl) 200 Mg Tab 800 MG PO BID for 30 Days, #240 TAB Polyethylene (Miralax) 17 Gm Pow 17 GM PO DAILY for 30 Days, #30 DOSE Sucralfate (Sucralfate) 1 Gm Tab 1 TAB PO QID for 14 Days, #56 TAB 3 Refills Take before each meal and before bedtime Continued Medications: Calcium Acetate (Phoslo 667 Mg) 667 Mg Cap 667 MG PO TIDM, #90 CAP Pantoprazole (Protonix) 40 Mg Tab 40 MG PO BID, TAB Discontinued Medications: Hydralazine HCl (Hydralazine HCl) 50 Mg Tab 50 MG PO QID, #120 TAB Labetalol Hcl (Labetalol Hcl) 200 Mg Tab 400 MG PO BID Discharge Exam Patient reports feeling well. She states that her abdominal pain has completely resolved and she feels "100% better". She is tolerating a PO diet and denies any N/V. During dialysis her fistula became infiltrated. She only received about 1 hour of dialysis as access could not be reestablished. Nephrology recommended keeping the patient overnight to monitor her fistula and electrolytes and to receive more dialysis the following day, however the patient refused, stating she would follow up at her dialysis clinic the following day. Constitutional: No fever, No chills, No sweats Eyes: No worsening of vision, No eye pain, No diplopia ENT: No hearing loss, No nasal symptoms, No trouble swallowing Respiratory: No cough, No wheezing, No shortness of breath Cardiovascular: No chest pain, No claudication, No palpitations Abdomen: No pain, No nausea, No vomiting Musculoskeletal: No joint pain, No muscle pain, No swelling Genitourinary - Female: No dysuria, No urinary retention, No hematuria Neurologic: No paralysis, No weakness, No numbness/tingling Integumentary: No rash, No itch, No color change General appearance: +Obese. Well-developed, well-nourished, no apparent distress Head: Normocephalic, atraumatic Eyes: Normal inspection, PERRL, EOMI ENT: Normal ENT inspection, hearing grossly normal, pharynx normal Neck: Supple, no JVD, trachea midline Respiratory/Chest: Lungs clear to auscultation, normal breath sounds, no respiratory distress Cardiovascular: Regular rate & rhythm, no gallop, no murmur Abdomen/GI: Normal bowel sounds, non-tender, soft Extremities/Musculoskeletal: Normal inspection, no calf tenderness, no pedal edema Neurological/Psych: Alert, normal mood/affect, oriented x 3 Skin: Normal color, warm/dry, no rash Hospital Course 36y/o female with a history of ESRD on HD, HTN, depression with anxiety, ALDO, GERD, h/o gastric ulcer, and psoriasis who presented with abdominal pain. Epigastric pain, constipation, h/o gastric ulcers, GERD--resolved -RUQ U/S no acute disease, no gallstones -CT abdomen/pelvis with non-obstructing renal calculi, otherwise no acute disease, no obstruction -KUB with moderate to severe constipation--resolved -Pt with 4 BMs on scheduled MiraLax q2h x 5 doses (refused bowel prep) -Continue MiraLAX BID. Will d/c with daily scheduled MiraLAX due to good response -Chest/abdomen x-ray shows non-obstructive bowel gas pattern, scattered air- fluid levels within bowel of centra abdomen suggesting ileus vs enteritis. Suspect this is more due to bowel prep than acute disease -Afebrile, no leukocytosis -Blood and urine cultures negative -EGD shows gastritis. Biopsies taken, pathology pending -D/C morphine. Tramadol 50 mg PO q12h prn pain -GI consulted, appreciate recs: Fleets enema every 6 hours 1 day (pt refused) . MiraLAX twice daily for 2 weeks then 1 time daily thereafter. Will perform EGD -Carafate increased to QID. Will d/c with Carafate x 2 weeks for gastritis -Continue Protonix 40 mg PO BID -Lipase, lactate, LFTs, troponin WNL ESRD on HD -Nephrology following, appreciate recs: Recommend one more night observation for urgent dialysis on 08/20 (off schedule) as did not receive entire treatment today -Pt refusing to stay, will follow up with dialysis clinic in [place] tomorrow -Dialysis / HTN urgency--resolved -Hydralazine d/c'd by nephro -Continue amlodipine 10 mg PO qd and labetalol 800 mg PO BID DVT prophylaxis -Heparin 5000 units SC q12h Code Status -Level I, FULL RESUSCITATION STATUS Attending Attestation & Discharge Note: Pt seen/examined, chart reviewed, discharge care plan d/w RENNY Champagne. I agree w/ the paul components of her discharge summary. 36yo female with HTN, prior gastric ulcers, and ESRD on HD who presented with vomiting and abdominal pain. She underwent an extensive work-up including gall bladder u/s, CT abd/pelvis, x- rays, labs, etc. All studies were normal/negative except for KUB x-rays showing moderate-severe constipation. After taking a quasi miralax bowel prep she had excellent results with such and had mild-moderate improvement in her pain. However, she continued to have epigastric pain. As a result [facility] which showed evidence of gastritis. Biopsies from the stomach were pending at discharge. At time of admission the patient's HTN was poorly controlled. This improved with adjustments in her medication regimen. At discharge the following were recommended - * PPI twice daily * carafate ac/hs x 2 weeks * miralax daily for constipation On day of discharge the patient had an abbreviated dialysis session due to infiltration of her fistula. It was recommended she stay an additional 24 hours to be observed for additional dialysis and/or complications of her fistula. She refused to stay 1 more day and was discharged home. Discharge exam: gen - NAD, obese heart - RRR, s1, s2, 2/6 JOSE LUSB lungs - CTA b/l abd - soft, NT, ND, BS+ ext - no edema; RUE fistula in place Edgar Tan MD Total Time Spent: Greater than 30 minutes This includes examination of the patient, discharge planning, medication reconciliation, and communication with other providers. Discharge Instructions Please refer to the electronic Patient Visit Report (Discharge Instructions) for additional information. Additional Copies To Alexandr Moreno M.D.; Ky Crawford M.D.; Christen Galvez C.R.N.P.
== END 2017-08-19 14:10 | disposition home or self-care (01) | DRG 391 ==
LOC: EDBD 15:14 → C.EDA 15:15 → C.2T 19:55 → ENRESERV 20:11 → C.MS4W 08-15 10:59
PROVIDERS: ADMIT Internal Medicine; ATTEND Internal Medicine
PROC: 0DB98ZX Excision of Duodenum, Via Natural or Artificial Opening Endoscopic, Diagnostic (ICD-10-PCS; principal; 2017-08-18 12:21)
PROC: 0DB78ZX Excision of Stomach, Pylorus, Via Natural or Artificial Opening Endoscopic, Diagnostic (ICD-10-PCS; principal; 2017-08-18 12:21)
DX: K52.9 Noninfective gastroenteritis and colitis, unspecified (principal); N18.6 End stage renal disease; N25.81 Secondary hyperparathyroidism of renal origin; N39.0 Urinary tract infection, site not specified; N17.9 Acute kidney failure, unspecified; Z68.41 Body mass index [BMI] 40.0-44.9, adult; Z83.3 Family history of diabetes mellitus; Z82.49 Family history of ischemic heart disease and other diseases of the circulatory system; Z87.891 Personal history of nicotine dependence; Z99.2 Dependence on renal dialysis; I16.0 Hypertensive urgency; D64.9 Anemia, unspecified; E66.01 Morbid (severe) obesity due to excess calories; F32.9 Major depressive disorder, single episode, unspecified; F41.9 Anxiety disorder, unspecified; K21.9 Gastro-esophageal reflux disease without esophagitis

== ENCOUNTER 2017-10-27 12:09 | Emergency (ER) | payer OTHER ==
[~2017-10-27] VITALS: Ht 162.6 cm; Wt 111.0 kg
[~2017-10-27 12:09] MED LIST changes: -APR50 PO; -LABE200T24 PO; +LBT200 PO; +MRLP17 PO; +NRV5 PO; +SUCR1TAB PO
[2017-10-27 12:11] VITALS: TEMP 37; Ht 162.6 cm; Wt 111.0 kg
[2017-10-27] MEDS ORDERED: ESCI10TA17 PO (12:33)
[2017-10-27] MEDS ORDERED: LIDO/EPINEPHRINE/SOD BICARB 20 ML VIAL INFIL ONE (12:45)
--- NOTE | 2017-10-27 13:16 | DIAGNOSTIC IMAGING REPORT ---
L HEEL MIN 2 VIEWS CLINICAL HISTORY: LEFT, POSSIBLE FOREIGN BODY COMPARISON: None FINDINGS: No radiopaque foreign body is identified. There is mild posterior calcaneal spurring. There is no calcaneal fracture. Subtalar joint appears intact. There is no evidence for osteomyelitis of the left calcaneus. IMPRESSION: No radiopaque foreign body, fracture or evidence for osteomyelitis. Electronically signed by: Jose Alberto Addison M.D. 10/27/2017 1:14 PM Dictated Date/Time: 10/27/2017 1:13 PM
[2017-10-27] MEDS ORDERED: CEPH500C2 PO (14:02)
--- NOTE | 2017-10-27 14:03 | EMERGENCY ROOM VISIT NOTE ---
ED Visit Note First contact with patient: 12:19 CC: Possible glass foreign body in the left heel HPI : Patient is a 36-year-old female who presents the emergency department for evaluation of left heel pain. She is concerned that she could have a piece of glass in her left foot. She states that her daughter broke a glass yesterday. The patient was walking barefoot in the kitchen, and got a piece of glass stuck in the back of the left heel. She was able to remove the large piece, and cleansed the area with soap and water and hydrogen peroxide. When she woke up today, the area was red, swollen and she was having pain with weightbearing. She was concerned that there could be additional glass in the wound or that it could be getting infected. REVIEW OF SYSTEMS: Review of systems as per HPI. All other systems reviewed were negative. At least 6 systems reviewed. PMH: Electronic medical records are reviewed and summarized as above/below. See Problem List.. SOCIAL HISTORY: Patient lives at home with her family. PHYSICAL EXAM: Vital Signs: Reviewed Nurse's notes. INTEGUMENTARY: Examination of the left heel notes a skin wound consistent with the cat from the glass from yesterday, it is moderately tender to palpation, not overtly erythematous, no purulent drainage or fluctuance appreciated. EMERGENCY DEPARTMENT COURSE: X-ray of the left calcaneus was obtained and there was no evidence for obvious foreign body. The affected area was scrubbed thoroughly with Betadine and anesthetized with 1% lidocaine. When the area was adequately anesthetized, the wound was explored thoroughly. There was no deep puncture wound appreciated. The base of the wound was very superficial, and was palpated thoroughly, with no obvious retained foreign body. There was some nonviable skin which was excised with iris scissors. The area was then re- scrubbed with Betadine and irrigated copiously with normal saline solution. Bacitracin and a light dressing were applied. The patient is diabetic, and on dialysis and therefore giving the increased risk of infection due to her comorbidities, she will be placed on Keflex. She was educated on local wound care measures and the signs and symptoms of infection for which she should seek immediate medical attention. Patient was discharged to home in good condition. Medication reconciliation: I attest that I have personally reviewed the patient' s current medication list. Blood pressure screening: Patient was found to have an elevated blood pressure, some of which may be situational as it did improve during her ED stay, however and was referred to their primary doctor for recheck and further treatment. L HEEL MIN 2 VIEWS CLINICAL HISTORY: LEFT, POSSIBLE FOREIGN BODY COMPARISON: None FINDINGS: No radiopaque foreign body is identified. There is mild posterior calcaneal spurring. There is no calcaneal fracture. Subtalar joint appears intact. There is no evidence for osteomyelitis of the left calcaneus. IMPRESSION: No radiopaque foreign body, fracture or evidence for osteomyelitis. Problem List Medical Problems: (1) Abdominal pain Status: Resolved (2) Acute renal failure Status: Resolved (3) Anemia Status: Chronic (4) Asthma Status: Chronic (5) Bacteremia Status: Resolved (6) Chest pain Status: Resolved (7) Chronic renal failure Status: Resolved (8) Chronic renal failure Status: Resolved (9) CKD (chronic kidney disease) requiring chronic dialysis Status: Resolved (10) Constipation Status: Resolved (11) Diarrhea Status: Resolved (12) End stage renal failure on dialysis Status: Chronic (13) Endometriosis in scar Status: Resolved (14) Fungal esophagitis Status: Resolved (15) Gastric ulcer Status: Resolved (16) Gastritis Status: Resolved (17) Gastroenteritis Status: Resolved (18) Headache Status: Resolved (19) Hypertension Status: Chronic (20) Hypertensive urgency Status: Resolved (21) Hypertensive urgency Status: Resolved (22) Intractable abdominal pain Status: Resolved (23) Obesity Status: Chronic (24) Profound anemia Permanent Comment: Ferritin low. BM bx demonstrated abnormal megakaryocytes. With clinical picture, somewhat suggestive of MDS. Would check cytogenetics if not done already. Received 8 units of PRBCs during this admission. Hgb at 8. BM biopsy with absent iron stores. Started on Venofer with HD. Cont oral iron supplementation Consider to check erythropoetin level. Patient will follow up with Dr. Ardon. Status: Resolved (25) Pulmonary edema Status: Resolved (26) Renal failure Status: Resolved (27) Secondary hyperparathyroidism of renal origin Status: Resolved (28) Severe headache Status: Resolved (29) Urinary tract infection Status: Resolved (30) Vomiting Status: Resolved Surgical Problems: (1) History of section Status: Resolved Social History Problems: (1) Tobacco use Status: Resolved Current/Historical Medications Scheduled Amlodipine Besylate (Amlodipine Besylate), 10 MG PO QAM Calcium Acetate (Phoslo 667 Mg), 667 MG PO TIDM Cephalexin Monohydrate (Keflex), 500 MG PO TID Escitalopram (Lexapro), 10 MG PO DAILY Labetalol HCl (Labetalol HCl), 800 MG PO BID Pantoprazole (Protonix), 40 MG PO BID Polyethylene (Miralax), 17 GM PO DAILY Allergies Coded Allergies: No Known Allergies (Verified , 10/27/17) Vital Signs Date Time Temp Pulse Resp B/P (MAP) Pulse Ox O2 Delivery O2 Flow Rate FiO2 10/27/17 14:12 78 20 148/105 98 10/27/17 12:21 70 20 174/112 96 10/27/17 12:11 37.0 84 16 189/128 96 Medications Administered Medications (Trade) Dose Ordered Sig/[place] Route Start Time Stop Time Status Last Admin Dose Admin Cephalexin Monohydrate (Keflex Cap) 500 mg NOW ONCE PO 10/27/17 14:15 10/27/17 14:16 DC 10/27/17 14:12 500 MG Departure Information Impression Primary Impression: Puncture wound of heel without complication Prescriptions Cephalexin Monohydrate (KEFLEX) 500 Mg Cap 500 MG PO TID, #15 CAP Prov: Berta Cummins PA 10/27/17 Referrals No Doctor, Assigned (PCP) Patient Instructions My [facility] Additional Instructions Keep wound clean and dry. Wash gently with mild soap and water. Use an antibiotic ointment for 3-4 days, then let wound dry. Keep covered until healed. Ice and elevate for swelling and pain. Ibuprofen 600 mg and Tylenol 1000 mg every 6 hrs for pain. Cephalexin(Keflex) 500mg: Take one pill 3 times daily for 5 days to prevent infection. All antibiotics can cause diarrhea. If this occurs and you feel worse or it does not resolve in 1-2 days follow up with your doctor or return to the Emergency Department as this could be signs of serious underlying problems. Any medication can cause an allergic reaction, stop the pills immediately and return to the ER for rash, hives, breathing difficulties, or swelling.
[2017-10-27 14:12] VITALS: BP 148/105; PULSE 78; O2SAT 98
[2017-10-27] MEDS ORDERED: CEPHALEXIN MONOHYDRATE 250 MG CAP PO ONE (14:15)
== END 2017-10-27 14:17 | disposition home or self-care (01) ==
LOC: C.EDB 12:10 → C.EDD 14:17
DX: S91.332A Puncture wound without foreign body, left foot, initial encounter (principal); W25.XXXA Contact with sharp glass, initial encounter; Y92.000 Kitchen of unspecified non-institutional (private) residence as the place of occurrence of the external cause; D64.9 Anemia, unspecified; J45.909 Unspecified asthma, uncomplicated; N18.6 End stage renal disease; I12.0 Hypertensive chronic kidney disease with stage 5 chronic kidney disease or end stage renal disease; E11.22 Type 2 diabetes mellitus with diabetic chronic kidney disease; E66.3 Overweight; Z99.2 Dependence on renal dialysis

== ENCOUNTER 2020-08-02 15:56 | Inpatient (IN) ==
[2020-08-02] MEDS ORDERED: diphenhydrAMINE 50 MG/ML VIAL IV STA (16:24)
[2020-08-02] MEDS ORDERED: ONDANSETRON INJ 2 MG/ML 2 ML VIAL IV STA (16:24)
[2020-08-02] MEDS ORDERED: SODIUM CHLORIDE 0.9% 500 ML IV SCH (16:30)
--- NOTE | 2020-08-02 16:31 | Emergency Department Note ---
Impression & Plan Right sided abdominal pain, Vomiting, Acute pyelonephritis ED Provider Note NAME: MARIUM TREJO AGE: 39 SEX: F : 1980 ARRIVES VIA: Walk-In INFORMANT: [Patient] ED PROVIDER(S): [Arian Wilson MD] CHIEF COMPLAINT: Abdominal pain HISTORY OF PRESENT ILLNESS: The patient is a 39-year-old female presents to the ED with complaints of abdominal pain. The pain is a 10/10. She has had pain for 3 days but it has worsened every day. The pain does radiate to the right flank. Patient states that she was vomiting yesterday and some today. She did go to dialysis today. There has been no fever, no cough or congestion. Patient states that she had pain that was similar to this once before from a kidney stone. Despite being on dialysis, she still does make some urine. The patient has had surgery across her abdomen, she had scar tissue worked on because of a prior . She states that she still has her appendix and gallbladder. REVIEW OF SYSTEMS: See HPI for pertinent positives and negatives. A total of ten systems were reviewed and were otherwise negative. PMHx/PSHx: See Below SOCIAL HISTORY: See Below. PHYSICAL EXAM: GENERAL: Patient is in mild distress from pain. HEENT: No acute trauma, normocephalic atraumatic, mucous membranes moist, no nasal congestion, no scleral icterus. NECK: No stridor, no adenopathy, no meningismus, trachea is midline. LUNGS: Clear to auscultation bilaterally, no wheeze, no rhonchi, breath sounds equal. HEART: Without murmurs gallops or rubs, regular rate and rhythm. ABDOMEN: Soft, moderately tender to the entire right side of the abdomen, no peritonitis. EXTREMITIES: No cyanosis or edema, full range of motion of all the joints without pain or difficulty, no signs for acute trauma. NEUROLOGIC: Oriented x 3, no acute motor or sensory deficits, no focal weakness. SKIN: No rash, no jaundice, no diaphoresis. DIFFERENTIAL DIAGNOSIS: Appendicitis, ovarian cyst, ovarian torsion, ectopic , TOA, PID, infections, diverticulitis, UTI, obstruction, mesenteric ischemia, aortic pathology, inflammatory bowel disease, renal colic, PUD, pancreatitis, biliary pathology, hernia, volvulus, constipation, as well as other pathologies. EMERGENCY DEPARTMENT COURSE/PROCEDURES: MEDICAL DECISION MAKING: There is a normal white blood cell count. The patient's hemoglobin is actually higher than baseline, this could be consistent with dehydration. There is a normal platelet count. Creatinine is 5.5, this is consistent with her dialysis need. Alk phos slightly elevated, the bilirubin though was normal. No evidence for pancreatitis. Urinalysis suggested infection, urine culture is pending. Coronavirus testing was negative. Abdominal and pelvis CT does not show any bowel obstruction or appendicitis. There is no abscess, no evidence for hydronephrosis. There was a left renal mass that was felt larger than before for which follow-up was suggested. Chest from did not show free air or pneumonia. The patient presents with vomiting and right-sided abdominal pain. She did receive IV ceftriaxone as empiric antibiotic coverage. She was given IV morphine for pain and eventually IV Dilaudid for pain. She received IV Zofran and IV Benadryl for nausea. She was given IV saline for hydration. The patient appears to have a pyelonephritis as the cause for her discomfort and vomiting. Given the persistent vomiting, given her suspected dehydration, given her dialysis need and other issues, I do think a hospital stay would be warranted. I spoke to the patient and case management. The on-call hospitalist has been consulted. Patient is feeling improved since being medicated. Past Med/Surg History Medical History A-V fistula right arm Asthma Chronic back pain Chronic kidney disease (CKD), stage IV (severe) dialysis shi/misty--follows with Dr. Crawford Depression with anxiety End stage renal disease GERD (gastroesophageal reflux disease) Heart murmur History of gastric ulcer Hypertension Low thyroid stimulating hormone (TSH) level LVH (left ventricular hypertrophy) Morbid obesity with BMI of 45.0-49.9, adult Nephrolithiasis Renal cyst Surgical History History of abdominal surgery repair skin around scar History of abdominoplasty History of section x4 History of esophagogastroduodenoscopy (EGD) History of wisdom tooth extraction Family History Mother Family history of diabetes mellitus Sister Family history of diabetes mellitus x3 Aunt Heart disease Father Family history of kidney disease Other No family history of adverse response to anesthesia Denies family history of Pancreatic cancer Ovarian cancer Prostate cancer Myocardial infarction Breast cancer Colorectal cancer Uterine cancer Social History Smoking Status: Never smoker Second Hand Exposure: No; Hx Alcohol Use: No Hx Substance Use: No Preferred Language: Chilean Communication Ability: Effective Collar Tacker Required: No Beliefs That Will Affect Care: None marital status: Single Current Living Situation: Family Current Living Situation Comment: Lives with 2 kids Feels Safe at Home: Yes Assistive Devices: None Allergies Allergies Allergy/AdvReac Type Severity Reaction Status Date / Time No Known Allergies Allergy Verified 08/02/20 19:41 Home Meds Home Medications Medication Instructions Recorded Confirmed amitriptyline 50 mg PO QAM 09/30/18 08/02/20 calcium acetate(phosphat bind) 2,001 mg PO TIDM 09/30/18 08/02/20 lorazepam 0.25 mg PO Q8 PRN 09/30/18 08/02/20 cinacalcet 30 mg PO DAILY 08/02/20 08/02/20 Previous Rx's Medication Instructions Recorded famotidine 20 mg PO BID #20 tab 12/05/18 loperamide 2 mg capsule 2 mg PO Q4H PRN #60 cap 05/26/19 labetalol 200 mg tablet 800 mg PO BID #720 tab 09/06/19 cyclobenzaprine 10 mg tablet 10 mg PO TID PRN #90 tab 12/07/19 pantoprazole 40 mg tablet,delayed 40 mg PO BID #180 tab 12/17/19 release atorvastatin 10 mg tablet 10 mg PO QPM #90 tab 03/08/20 triamcinolone acetonide 0.1 % 1 appln TOP BID #80 gm 03/10/20 topical ointment rifaximin 550 mg tablet 550 mg PO BID #60 tab 03/20/20 Results & Data (ED) Vital Signs Vital Signs - 24 hr 08/02/20 16:04 08/02/20 17:01 08/02/20 17:02 Temperature 37.1 C Temperature Source Oral Pulse Rate 83 Pulse Rate [Finger] 75 Respiratory Rate 18 20 Respiratory Effort / Characteristics Non-Labored Spontaneous Respiratory Depth Normal Respiratory Pattern Regular Blood Pressure 175/109 H Blood Pressure [Left Arm] 172/111 H Blood Pressure Mean 131 Blood Pressure Mean [Left Arm] 131 Blood Pressure Position Sitting Pulse Oximetry 100 97 97 Oxygen Delivery Method Room Air Room Air Room Air Sepsis Recent Fever Within 48 Hours No Sepsis New/Unexplained Change in Mental Status N/A Sepsis Action Taken by Nursing No Action Required 08/02/20 18:33 08/02/20 20:16 Temperature Temperature Source Pulse Rate Pulse Rate [Finger] 82 79 Respiratory Rate 20 14 Respiratory Effort / Characteristics Non-Labored Spontaneous Respiratory Depth Normal Respiratory Pattern Blood Pressure Blood Pressure [Left Arm] 147/94 H 143/79 H Blood Pressure Mean Blood Pressure Mean [Left Arm] 111 100 Blood Pressure Position Pulse Oximetry 96 97 Oxygen Delivery Method Room Air Room Air Sepsis Recent Fever Within 48 Hours Sepsis New/Unexplained Change in Mental Status Sepsis Action Taken by Retirement Medications Current Medication List: was personally reviewed by me Laboratory Data Attestation: I reviewed the patient's lab results. Result diagrams: 08/02/20 16:52 08/02/20 16:52 Lab Results 08/02/20 08/02/20 08/02/20 Range/Units 16:52 16:52 18:13 WBC 6.63 (4.8-10.8) K/uL RBC 3.83 L (4.2-5.4) M/uL Hgb 11.7 L (12.0-16.0) g/dL Hct 37.1 (37-47) % MCV 96.9 (80-100) fL MCH 30.5 (25-34) pg MCHC 31.5 L (32-36) g/dL RDW Std Deviation 61.4 H (36.4-46.3) fL RDW Coeff of Hosea 17.6 H (11.5-14.5) % Plt Count 264 (130-400) K/uL MPV 9.4 (7.4-10.4) fL Immature Gran % (Auto) 0.2 % Neut % (Auto) 63.5 % Lymph % (Auto) 25.5 % [place] % (Auto) 6.5 % Eos % (Auto) 3.8 % Baso % (Auto) 0.5 % Neut # (Auto) 4.22 (1.4-6.5) K/uL Lymph # (Auto) 1.69 (1.2-3.4) K/uL [place] # (Auto) 0.43 (0.11-0.59) K/uL Eos # (Auto) 0.25 (0-0.5) K/uL Baso # (Auto) 0.03 (0-0.2) K/uL Immature Gran # (Auto) 0.01 (0.00-0.02) K/uL Sodium 135 L (136-145) mmol/L Potassium 4.0 (3.5-5.1) mmol/L Chloride 98 (98-107) mmol/L Carbon Dioxide 37 H (21-32) mmol/L Anion Gap 0 L (3-11) BUN 15 (7-18) mg/dl Creatinine 5.50 H* (0.6-1.2) mg/dl Est Cr Clr Drug Dosing 16.8 ml/min Est GFR ( Amer) 10.4 Est GFR (Non-Af Amer) 9.0 BUN/Creatinine Ratio 2.7 L (10-20) Glucose 94 (70-99) mg/dl Calcium 9.7 (8.5-10.1) mg/dl Magnesium 2.0 (1.8-2.4) mg/dl Total Bilirubin 0.4 (0.2-1) mg/dl AST 10 L (15-37) U/L ALT 16 (12-78) U/L Alkaline Phosphatase 220 H (45-117) U/L Total Protein 8.7 H (6.4-8.2) gm/dl Albumin 3.9 (3.4-5.0) gm/dl Globulin 4.8 H (2.5-4.0) gm/dl Albumin/Globulin Ratio 0.8 L (0.9-2) Lipase 147 (73-393) U/L Urine Color Yellow Urine Appearance Cloudy A (Clear) Urine pH 7.0 (4.5-7.5) Ur Specific [place] 1.015 (1.000-1.030) Urine Protein 3+ H (Negative) Urine Glucose (UA) Negative (Negative) Urine Ketones Trace H (Negative) Urine Blood 2+ H (Negative) Urine Nitrite Negative (Negative) Urine Bilirubin Negative (Negative) Urine Urobilinogen Negative (Negative) Ur Leukocyte Esterase 2+ H (Negative) Urine RBC 10-30 H (0-4) /hpf Urine WBC >30 H (0-5) /hpf Ur Epithelial Cells >30 H (0-5) /lpf Urine Bacteria 1+ H (Negative) SARS-CoV-2 Ag (Rapid) (Negative) 08/02/20 Range/Units Unknown WBC (4.8-10.8) K/uL RBC (4.2-5.4) M/uL Hgb (12.0-16.0) g/dL Hct (37-47) % MCV (80-100) fL MCH (25-34) pg MCHC (32-36) g/dL RDW Std Deviation (36.4-46.3) fL RDW Coeff of Hosea (11.5-14.5) % Plt Count (130-400) K/uL MPV (7.4-10.4) fL Immature Gran % (Auto) % Neut % (Auto) % Lymph % (Auto) % [place] % (Auto) % Eos % (Auto) % Baso % (Auto) % Neut # (Auto) (1.4-6.5) K/uL Lymph # (Auto) (1.2-3.4) K/uL [place] # (Auto) (0.11-0.59) K/uL Eos # (Auto) (0-0.5) K/uL Baso # (Auto) (0-0.2) K/uL Immature Gran # (Auto) (0.00-0.02) K/uL Sodium (136-145) mmol/L Potassium (3.5-5.1) mmol/L Chloride (98-107) mmol/L Carbon Dioxide (21-32) mmol/L Anion Gap (3-11) BUN (7-18) mg/dl Creatinine (0.6-1.2) mg/dl Est Cr Clr Drug Dosing ml/min Est GFR ( Amer) Est GFR (Non-Af Amer) BUN/Creatinine Ratio (10-20) Glucose (70-99) mg/dl Calcium (8.5-10.1) mg/dl Magnesium (1.8-2.4) mg/dl Total Bilirubin (0.2-1) mg/dl AST (15-37) U/L ALT (12-78) U/L Alkaline Phosphatase (45-117) U/L Total Protein (6.4-8.2) gm/dl Albumin (3.4-5.0) gm/dl Globulin (2.5-4.0) gm/dl Albumin/Globulin Ratio (0.9-2) Lipase (73-393) U/L Urine Color Urine Appearance (Clear) Urine pH (4.5-7.5) Ur Specific [place] (1.000-1.030) Urine Protein (Negative) Urine Glucose (UA) (Negative) Urine Ketones (Negative) Urine Blood (Negative) Urine Nitrite (Negative) Urine Bilirubin (Negative) Urine Urobilinogen (Negative) Ur Leukocyte Esterase (Negative) Urine RBC (0-4) /hpf Urine WBC (0-5) /hpf Ur Epithelial Cells (0-5) /lpf Urine Bacteria (Negative) SARS-CoV-2 Ag (Rapid) Negative (Negative) Administered Medications Morphine Sulfate (Morphine Sulfate 4 Mg/Ml 1 Ml Carp\Vial) 4 mg IV Q15M PRN PRN Reason: Pain Stop: 08/16/20 16:23 Last Admin: 08/02/20 16:58 Dose: 4 mg Documented by: [id number] Discontinued Medications Diphenhydramine HCl (Diphenhydramine 50 Mg/Ml Vial) 12.5 mg IV NOW STA Stop: 08/02/20 16:25 Last Admin: 08/02/20 16:58 Dose: 12.5 mg Documented by: [id number] Hydromorphone HCl (Hydromorphone Inj 1 Mg/Ml Syringe) 1 mg IV NOW STA Stop: 08/02/20 18:27 Last Admin: 08/02/20 18:30 Dose: 1 mg Documented by: [id number] Sodium Chloride (Nss) 500 mls @ 999 mls/hr IV .Q31M ZACHERY Stop: 08/02/20 17:00 Last Infusion: 08/02/20 19:03 Dose: 0 mls/hr Documented by: [id number] Admin: 08/02/20 16:56 Dose: 999 mls/hr Documented by: [id number] Ceftriaxone Sodium (Rocephin) 2,000 mg in 70 mls @ 140 mls/hr IV NOW STA Stop: 08/02/20 19:08 Last Infusion: 08/02/20 19:33 Dose: 0 mls/hr Documented by: [id number] Admin: 08/02/20 19:00 Dose: 140 mls/hr Documented by: [id number] Sodium Chloride (Nss) 250 mls @ 999 mls/hr IV .Q16M ONE Stop: 08/02/20 19:22 Last Infusion: 08/02/20 19:32 Dose: 0 mls/hr Documented by: [id number] Admin: 08/02/20 19:13 Dose: 999 mls/hr Documented by: [id number] Ondansetron HCl (Ondansetron Inj 2 Mg/Ml 2 Ml Vial) 4 mg IV NOW STA Stop: 08/02/20 16:25 Last Admin: 08/02/20 16:56 Dose: 4 mg Documented by: [id number] Ondansetron HCl (Ondansetron 4 Mg Od Tab) 4 mg PO NOW STA Stop: 08/02/20 17:15 Last Admin: 08/02/20 17:23 Dose: Not Given Documented by: [id number] Imaging Data Radiologist's Impression: XR chest 1V portable CLINICAL HISTORY: Pain radiating to the abdomen COMPARISON STUDY: 12/05/2018 FINDINGS: The heart remains enlarged. There is mild interstitial prominence unchanged from the prior study. This may in part be secondary to technical factors given the patient's body habitus and AP technique. There is no focal pulmonary consolidation. There are no pleural effusions. There is no free intraperitoneal air.[ IMPRESSION: Stable mild cardiomegaly. No change from the prior study. No acute findings. CT SCAN OF THE ABDOMEN AND PELVIS WITHOUT CONTRAST CLINICAL HISTORY: right abd flank pain, vomiting COMPARISON STUDY: 12/05/2018 TECHNIQUE: CT scan of the abdomen and pelvis was performed from the lung bases to the proximal femurs. Images are reviewed in the axial, sagittal, and coronal planes. IV contrast was not administered for this examination. A dose lowering technique was utilized adhering to the principles of ALARA. CT DOSE: 1575.06 mGy.cm FINDINGS: Lower chest: The heart is normal in size and configuration, without pericardial effusion. The lung bases and pleural spaces are clear. Liver: The unenhanced liver is normal in size, contour, and attenuation. There is no intrahepatic biliary ductal dilatation. Gallbladder: Unremarkable. Spleen: Normal in size and attenuation. Pancreas: Unremarkable. Adrenal glands: There is mild adrenal gland thickening similar to the prior study. Kidneys: There are multiple bilateral renal cysts. There is also indeterminate 27 mm upper pole left renal lesion. This is larger than on the prior study. A dedicated renal CT scanner MRI is recommended in follow-up there are bilateral intrarenal calculi. There is no hydronephrosis. There are multiple pelvic basin calcifications. Phleboliths are favored over nonobstructing ureteral calculi. Bowel: There are no transition zones indicate bowel obstruction. There is no evidence of acute diverticulitis. The appendix appears normal. Peritoneum: There is no intraperitoneal free air or abdominal ascites. Vasculature: The abdominal aorta is normal in course and caliber. Adenopathy: None. Pelvic viscera: The bladder, and pelvic viscera are unremarkable. Skeletal structures: There is a stable 24 mm right anterior abdominal wall nodule, likely representing a postsurgical keloid or desmoid. IMPRESSION: 1. Bilateral nephrolithiasis 2. No evidence of hydronephrosis. No ureteral or bladder calculi are visualized 3. Normal appendix 4. No evidence of acute diverticulitis 5. Enlarging indeterminate 27 mm left renal mass. A dedicated renal CT scan or MRI is recommended in follow-up Discharge Plan Visit Data Chief Complaint: Abdominal Pain Stated Complaint: BACK PAIN, VOMITING ED Provider: Arian Wilson Discharge Problem: Right sided abdominal pain, Vomiting, Acute pyelonephritis Patient Disposition: Admitted As Inpatient Condition: Fair Forms Stand Alone Forms: [facility] [employer] Prescriptions Prescriptions: No Action labetalol 200 mg tablet 800 mg PO BID Qty: 720 RF: 3 cyclobenzaprine 10 mg tablet 10 mg PO TID PRN (Reason: muscle spasm) Qty: 90 RF: 1 pantoprazole 40 mg tablet,delayed release (DR/EC) 40 mg PO BID Qty: 180 RF: 1 atorvastatin [Lipitor] 10 mg tablet 10 mg PO QPM Qty: 90 RF: 1 triamcinolone acetonide 0.1 % ointment 1 appln TOP BID Qty: 80 RF: 2 rifaximin 550 mg tablet 550 mg PO BID Qty: 60 RF: 2 loperamide 2 mg capsule 2 mg PO Q4H PRN (Reason: loose stool) Qty: 60 RF: 0 amitriptyline 50 mg Tablet 50 mg PO QAM RF: 0 lorazepam 0.5 mg Tablet 0.25 mg PO Q8 PRN (Reason: Anxiety) RF: 0 calcium acetate(phosphat bind) 667 mg Capsule 2,001 mg PO TIDM RF: 0 famotidine 20 mg tablet 20 mg PO BID Qty: 20 RF: 0 cinacalcet 30 mg tablet 30 mg PO DAILY RF: 0 Referrals Referrals: Jacques Zhang III, CRNP [Primary Care Provider] - Discharge Problem: Vomiting Qualifiers: Vomiting type: unspecified Vomiting Intractability: non-intractable Nausea presence: with nausea Qualified Code(s): R11.2 - Nausea with vomiting, unspecified
--- NOTE | 2020-08-02 16:49 | XRay Report ---
XR chest 1V portable CLINICAL HISTORY: Pain radiating to the abdomen COMPARISON STUDY: 12/05/2018 FINDINGS: The heart remains enlarged. There is mild interstitial prominence unchanged from the prior study. This may in part be secondary to technical factors given the patient's body habitus and AP tyrone hnique. There is no focal pulmonary consolidation. There are no pleural effusions. There is no free i ntraperitoneal air.[ IMPRESSION: Stable mild cardiomegaly. No change from the prior study. No acute findings. ACT 112: Negative or not required by law. Electronically signed by: Eliazar Constantino M.D. 08/02/2020 4:48 PM
[2020-08-02] MEDS: MoRPHine SULFATE 4 MG/ML 1 ML CARP\\VIAL IV PRN ×2 (16:58→21:59)
[2020-08-02 17:02] LABS: Basophils # (auto) 0.03 K/uL (0-0.2); Basophils % (auto) 0.5 %; Eosinophils # (auto) 0.25 K/uL (0-0.5); Eosinophils % (auto) 3.8 %; Hematocrit (blood only) 37.1 % (37-47); Hemoglobin 11.7 g/dL (12.0-16.0); Immature Granulocytes # (auto) 0.01 K/uL (0.00-0.02); Immature Granulocytes % (auto) 0.2 %; Lymphocytes # (auto) 1.69 K/uL (1.2-3.4); Lymphocytes % (auto) 25.5 %; Mean Corpuscular Hemoglobin 30.5 pg (25-34); Mean Corpuscular Hgb Conc 31.5 g/dL (32-36); Mean Corpuscular Volume 96.9 fL (80-100); Mean Platelet Volume 9.4 fL (7.4-10.4); Monocytes # (auto) 0.43 K/uL (0.11-0.59); Monocytes % (auto) 6.5 %; Neutrophils # (auto) 4.22 K/uL (1.4-6.5); Neutrophils % (auto) 63.5 %; Platelet Count 264 K/uL (130-400); RDW Coefficient of Variation 17.6 % (11.5-14.5); RDW Standard Deviation 61.4 fL (36.4-46.3); Red Blood Count 3.83 M/uL (4.2-5.4); White Blood Count 6.63 K/uL (4.8-10.8)
[2020-08-02] MEDS ORDERED: ONDANSETRON 4 MG OD TAB PO STA (17:14)
--- NOTE | 2020-08-02 17:47 | CT Scan Report ---
CT SCAN OF THE ABDOMEN AND PELVIS WITHOUT CONTRAST CLINICAL HISTORY: right abd flank pain, vomiting COMPARISON STUDY: 12/05/2018 TECHNIQUE: CT scan of the abdomen and pelvis was performed from the lung bases to the proximal femurs . Images are reviewed in the axial, sagittal, and coronal planes. IV contrast was not administered fo r this examination. A dose lowering technique was utilized adhering to the principles of ALARA. CT DOSE: 1575.06 mGy.cm FINDINGS: Lower chest: The heart is normal in size and configuration, without pericardial effusion. The lung ba ses and pleural spaces are clear. Liver: The unenhanced liver is normal in size, contour, and attenuation. There is no intrahepatic ciaran iary ductal dilatation. Gallbladder: Unremarkable. Spleen: Normal in size and attenuation. Pancreas: Unremarkable. Adrenal glands: There is mild adrenal gland thickening similar to the prior study. Kidneys: There are multiple bilateral renal cysts. There is also indeterminate 27 mm upper pole left renal lesion. This is larger than on the prior study. A dedicated renal CT scanner MRI is recommended in follow-up there are bilateral intrarenal calculi. There is no hydronephrosis. There are multiple pelvic basin calcifications. Phleboliths are favored over nonobstructing ureteral calculi. Bowel: There are no transition zones indicate bowel obstruction. There is no evidence of acute divert iculitis. The appendix appears normal. Peritoneum: There is no intraperitoneal free air or abdominal ascites. Vasculature: The abdominal aorta is normal in course and caliber. Adenopathy: None. Pelvic viscera: The bladder, and pelvic viscera are unremarkable. Skeletal structures: There is a stable 24 mm right anterior abdominal wall nodule, likely representin g a postsurgical keloid or desmoid. IMPRESSION: 1. Bilateral nephrolithiasis 2. No evidence of hydronephrosis. No ureteral or bladder calculi are visualized 3. Normal appendix 4. No evidence of acute diverticulitis 5. Enlarging indeterminate 27 mm left renal mass. A dedicated renal CT scan or MRI is recommended in follow-up ACT 112: Positive. There are findings on this exam that require communication between the performing entity and the patient following Patient Test Result Information Act ([place] Act 112) guidelines. Electronically signed by: Eliazar Constantino M.D. 08/02/2020 5:45 PM
[2020-08-02 17:58] LABS: Albumin Globulin Ratio 0.8 (0.9-2); Albumin Level 3.9 gm/dl (3.4-5.0); BUN Creatinine Ratio 2.7 (10-20); Bilirubin,Total 0.4 mg/dl (0.2-1); Calcium 9.7 mg/dl (8.5-10.1); Creatinine Clr Calc Pharmacy 16.8 ml/min; Est GFR (African American) 10.4; Globulin 4.8 gm/dl (2.5-4.0); Total Protein 8.7 gm/dl (6.4-8.2)
[2020-08-02 18:23] LABS: Appearance Urine Cloudy (Clear); Blood Urine 2+ (Negative); Color Urine Yellow; Glucose Urine UA Negative (Negative); Ketones Urine Trace (Negative); Leukocyte Esterase Urine 2+ (Negative); Nitrite Urine Negative (Negative); Protein Urine 3+ (Negative); Specific Gravity Urine 1.015 (1.000-1.030); Urobilinogen Urine Negative (Negative)
[2020-08-02] MEDS ORDERED: HYDROmorphone INJ 1 MG/ML SYRINGE IV STA (18:26)
[2020-08-02 18:28] LABS: Bilirubin Urine Negative (Negative); Ictotest Urine Negative (Negative)
[2020-08-02 18:32] LABS: Bacteria Urine 1+ (Negative); Epithelial Cell Urine >30 /lpf (0-5); WBC Urine >30 /hpf (0-5)
[2020-08-02] MEDS ORDERED: cefTRIAXone SODIUM 2,000 MG/70 ML BAG IV STA (18:39)
[2020-08-02] MEDS ORDERED: SODIUM CHLORIDE 0.9% 250 ML IV ONE (19:07)
--- NOTE | 2020-08-02 20:34 | History & Physical Report ---
Date of Service August 02, 2020 Assessment & Plan (1) Acute pyelonephritis: Acute pyelonephritis/intractable abdominal pain, nausea and vomiting- NPO except meds Continue ceftriaxone 2 g IV daily begun in the ED Zofran 4 mg IV every 6 hours as needed Dilaudid 1 mg IV every 3 hours as needed severe pain Present on Admission?: Yes (2) Right sided abdominal pain: See above Present on Admission?: Yes (3) Vomiting: See above Continue rifaximin for history of irritable bowel syndrome diarrhea Present on Admission?: Yes (4) Left kidney mass: Increased to 27 mm in size. Has noted renal cyst in history. Patient too uncomfortable to undergo MRI for further assessment tonight. We will reconsider in a.m. Present on Admission?: Yes (5) Hypercholesterolemia: Continue atorvastatin 10 mg daily Present on Admission?: Yes (6) End-stage renal disease on hemodialysis: Consult her aerial hurricane hunter Dr. Crawford Dialysis days are Friday, Friday and Friday. She did have dialysis yesterday as scheduled Continue cinacalcet. Present on Admission?: Yes (7) Hypertension: Continue labetalol 800 mg p.o. twice daily with hold parameters Present on Admission?: Yes (8) Renal cyst: Verified that noted renal cyst is image noted on CT Present on Admission?: Yes (9) GERD (gastroesophageal reflux disease): Continue pantoprazole 40 mg p.o. twice daily and famotidine 20 mg p.o. twice daily Present on Admission?: Yes History of Present Illness Chief Complaint: The patient presents to the emergency department with intractable nausea, vomiting and abdominal pain, that initially began 3 days ago, but has progressively worsened since that time Primary Care Provider: Jacques Zhang III, MICHAELA The patient is a 39-year-old female with a past medical history including hypercholesterolemia, irritable bowel syndrome with diarrhea, ESRD on HD, secondary hyperparathyroidism, vitamin D deficiency, recurrent UTI, psoriasis, hypertension, asthma, chronic back pain, depression with anxiety, LVH, and renal cyst. The patient reports she was at dialysis earlier in the day, and since that time has continued to feel worsening symptoms that initially began 3 days ago. She presented to the ED with the symptoms as noted. Work-up in the emerge ncy department included a CT scan of abdomen and pelvis which reported a increasing in size 27 mm left renal mass, a urinalysis was suggestive of a urinary tract infection. In the emergency department, patient received ceftriaxone 2 g IV, Dilaudid 1 mg IV, Benadryl 12.5 mg IV and normal saline boluses of 500 mL and then 250 mL Allergies Allergy/AdvReac Type Severity Reaction Status Date / Time No Known Allergies Allergy Verified 08/02/20 19:41 Home Medications Medication Instructions Recorded Confirmed Type amitriptyline 50 mg PO QAM 09/30/18 08/02/20 History calcium acetate(phosphat bind) 2,001 mg PO TIDM 09/30/18 08/02/20 History lorazepam 0.25 mg PO Q8 PRN 09/30/18 08/02/20 History famotidine 20 mg PO BID #20 tab 12/05/18 08/02/20 Rx loperamide 2 mg capsule 2 mg PO Q4H PRN #60 cap 05/26/19 08/02/20 Rx labetalol 200 mg tablet 800 mg PO BID #720 tab 09/06/19 08/02/20 Rx cyclobenzaprine 10 mg tablet 10 mg PO TID PRN #90 tab 12/07/19 08/02/20 Rx pantoprazole 40 mg tablet,delayed 40 mg PO BID #180 tab 12/17/19 08/02/20 Rx release atorvastatin 10 mg tablet 10 mg PO QPM #90 tab 03/08/20 08/02/20 Rx triamcinolone acetonide 0.1 % 1 appln TOP BID #80 gm 03/10/20 08/02/20 Rx topical ointment rifaximin 550 mg tablet 550 mg PO BID #60 tab 03/20/20 08/02/20 Rx cinacalcet 30 mg PO DAILY 08/02/20 08/02/20 History Past Med/Surg History Medical History (Updated 08/03/20 @ 03:15 by Jony Burton MD) A-V fistula right arm Asthma Chronic back pain Chronic kidney disease (CKD), stage IV (severe) dialysis shi/misty--follows with Dr. Crawford Depression with anxiety End stage renal disease End-stage renal disease on hemodialysis GERD (gastroesophageal reflux disease) Heart murmur History of gastric ulcer Hypertension Low thyroid stimulating hormone (TSH) level LVH (left ventricular hypertrophy) Morbid obesity with BMI of 45.0-49.9, adult Nephrolithiasis Renal cyst Surgical History History of abdominal surgery repair skin around scar History of abdominoplasty History of section x4 History of esophagogastroduodenoscopy (EGD) History of wisdom tooth extraction Family History Mother Family history of diabetes mellitus Sister Family history of diabetes mellitus x3 Aunt Heart disease Father Family history of kidney disease Other No family history of adverse response to anesthesia Denies family history of Pancreatic cancer Ovarian cancer Prostate cancer Myocardial infarction Breast cancer Colorectal cancer Uterine cancer Social History Smoking Status: Never smoker Second Hand Exposure: No; Do You Dip or Chew Tobacco: No; Hx Alcohol Use: No Hx Substance Use: No Preferred Language: Mauritanian Communication Ability: Effective [employer] Required: No Beliefs That Will Affect Care: None marital status: Single Current Living Situation: Family Current Living Situation Comment: Lives with 2 kids Other Information That Helps Us Care for You: No Feels Safe at Home: Yes Safety Concerns: Feels Safe At This Time Assistive Devices: None Review of Systems Review of Systems: The patient denies chest pain, palpitations, shortness of breath, dyspnea on exertion, cough, lower extremity swelling, sore throat, fevers, chills, sweats, diarrhea , constipation, blood in urine or stool, dysuria, urinary frequency or urgency, lightheadedness, dizziness, headache, memory loss, loss of consciousness, rash, abnormal bruising or bleeding, imbalance, focal or generalized weakness, numbness or tingling in arms or legs, generalized arthralgias or myalgias, back or neck pain, or night sweats. The review of systems is otherwise negative other than for that already noted above, and at least 10 systems have been reviewed. Physical Exam Physical Exam: The patient is awake, alert and oriented 3, well developed and well nourished, normocephalic and atraumatic, lying in bed and in no acute distress. HEENT--PERRL, EOMI, mucous membranes and oropharynx dry. Neck--supple. No JVD. No bruits. Thyroid normal, trachea midline, no adenopathy. Heart--normal S1 and S2. No murmurs, rubs or gallops. Lungs--clear bilaterally, no respiratory distress, no accessory muscle use. Abdomen--normal bowel sounds and soft. Generalized abdominal tenderness. Nondistended. Obese. Extremities--no cyanosis or clubbing. No edema. Dermatologic--normal skin turgor, normal color, no abnormal lymph nodes, no rash. Neurologic--cranial nerves II through XII grossly intact. Rheumatologic--normal range of motion. Psychiatric--normal affect. Results & Data Results & Data ([facility]) Vital Signs (Past 12 Hours) Vital Signs Temp Pulse Pulse Resp BP BP Pulse Ox 08/02/20 20:16 79 14 143/79 H 97 08/02/20 18:33 82 20 147/94 H 96 08/02/20 17:02 97 08/02/20 17:01 75 20 172/111 H 97 08/02/20 16:04 98.8 F 83 18 175/109 H 100 Laboratory Results Laboratory Results WBC 6.63 K/uL (4.8-10.8) 08/02/20 16:52 RBC 3.83 M/uL (4.2-5.4) L 08/02/20 16:52 Hgb 11.7 g/dL (12.0-16.0) L 08/02/20 16:52 Hct 37.1 % (37-47) 08/02/20 16:52 MCV 96.9 fL (80-100) 08/02/20 16:52 MCH 30.5 pg (25-34) 08/02/20 16:52 MCHC 31.5 g/dL (32-36) L 08/02/20 16:52 RDW Std Deviation 61.4 fL (36.4-46.3) H 08/02/20 16:52 RDW Coeff of Hosea 17.6 % (11.5-14.5) H 08/02/20 16:52 Plt Count 264 K/uL (130-400) 08/02/20 16:52 MPV 9.4 fL (7.4-10.4) 08/02/20 16:52 Immature Gran % (Auto) 0.2 % 08/02/20 16:52 Neut % (Auto) 63.5 % 08/02/20 16:52 Lymph % (Auto) 25.5 % 08/02/20 16:52 Grady % (Auto) 6.5 % 08/02/20 16:52 Eos % (Auto) 3.8 % 08/02/20 16:52 Baso % (Auto) 0.5 % 08/02/20 16:52 Neut # (Auto) 4.22 K/uL (1.4-6.5) 08/02/20 16:52 Lymph # (Auto) 1.69 K/uL (1.2-3.4) 08/02/20 16:52 Grady # (Auto) 0.43 K/uL (0.11-0.59) 08/02/20 16:52 Eos # (Auto) 0.25 K/uL (0-0.5) 08/02/20 16:52 Baso # (Auto) 0.03 K/uL (0-0.2) 08/02/20 16:52 Immature Gran # (Auto) 0.01 K/uL (0.00-0.02) 08/02/20 16:52 Sodium 135 mmol/L (136-145) L 08/02/20 16:52 Potassium 4.0 mmol/L (3.5-5.1) 08/02/20 16:52 Chloride 98 mmol/L (98-107) 08/02/20 16:52 Carbon Dioxide 37 mmol/L (21-32) H 08/02/20 16:52 Anion Gap 0 (3-11) L 08/02/20 16:52 BUN 15 mg/dl (7-18) 08/02/20 16:52 Creatinine 5.50 mg/dl (0.6-1.2) H* 08/02/20 16:52 Est Cr Clr Drug Dosing 16.8 ml/min 08/02/20 16:52 Est GFR ( Amer) 10.4 08/02/20 16:52 Est GFR (Non-Af Amer) 9.0 08/02/20 16:52 BUN/Creatinine Ratio 2.7 (10-20) L 08/02/20 16:52 Glucose 94 mg/dl (70-99) 08/02/20 16:52 Calcium 9.7 mg/dl (8.5-10.1) 08/02/20 16:52 Magnesium 2.0 mg/dl (1.8-2.4) 08/02/20 16:52 Total Bilirubin 0.4 mg/dl (0.2-1) 08/02/20 16:52 AST 10 U/L (15-37) L 08/02/20 16:52 ALT 16 U/L (12-78) 08/02/20 16:52 Alkaline Phosphatase 220 U/L (45-117) H 08/02/20 16:52 Total Protein 8.7 gm/dl (6.4-8.2) H 08/02/20 16:52 Albumin 3.9 gm/dl (3.4-5.0) 08/02/20 16:52 Globulin 4.8 gm/dl (2.5-4.0) H 08/02/20 16:52 Albumin/Globulin Ratio 0.8 (0.9-2) L 08/02/20 16:52 Lipase 147 U/L (73-393) 08/02/20 16:52 Urine Color Yellow 08/02/20 18:13 Urine Appearance Cloudy (Clear) A 08/02/20 18:13 Urine pH 7.0 (4.5-7.5) 08/02/20 18:13 Ur Specific [place] 1.015 (1.000-1.030) 08/02/20 18:13 Urine Protein 3+ (Negative) H 08/02/20 18:13 Urine Glucose (UA) Negative (Negative) 08/02/20 18:13 Urine Ketones Trace (Negative) H 08/02/20 18:13 Urine Blood 2+ (Negative) H 08/02/20 18:13 Urine Nitrite Negative (Negative) 08/02/20 18:13 Urine Bilirubin Negative (Negative) 08/02/20 18:13 Urine Urobilinogen Negative (Negative) 08/02/20 18:13 Ur Leukocyte Esterase 2+ (Negative) H 08/02/20 18:13 Urine RBC 10-30 /hpf (0-4) H 08/02/20 18:13 Urine WBC >30 /hpf (0-5) H 08/02/20 18:13 Ur Epithelial Cells >30 /lpf (0-5) H 08/02/20 18:13 Urine Bacteria 1+ (Negative) H 08/02/20 18:13 Nasal Screen MRSA (PCR) Negative (Negative) 08/03/20 00:35 SARS-CoV-2 Ag (Rapid) Negative (Negative) 08/02/20 Unknown Diagnostic Findings [facility], [id number] CT Scan Report Patient: MARIUM TREJO Date: 08/02/20MR#: [id number]: [address]Acct ID:[id number]: [facility]: 1980[facility] Zip[facility] [place], [place] [address]Clz: [address]Location: EDSex: FRoom/Bed:Att Phy:Diagnosis: BACK PAIN, VOMITINGPri Phy: Jacques Zhang III, CRNPService Date: 08/02/20Fam Phy:Interpreting Phy: Eliazar Constantino MDAdmit Phy: Ordering Phy: Arian Wilson M.D. cc: ~ CT SCAN OF THE ABDOMEN AND PELVIS WITHOUT CONTRAST CLINICAL HISTORY: right abd flank pain, vomiting COMPARISON STUDY: 12/05/2018 TECHNIQUE: CT scan of the abdomen and pelvis was performed from the lung bases to the proximal femurs. Images are reviewed in the axial, sagittal, and coronal planes. IV contrast was not administered for this examination. A dose lowering technique was utilized adhering to the principles of ALARA. CT DOSE: 1575.06 mGy.cm FINDINGS: Lower chest: The heart is normal in size and configuration, without pericardial effusion. The lung bases and pleural spaces are clear. Liver: The unenhanced liver is normal in size, contour, and attenuation. There is no intrahepatic biliary ductal dilatation. Gallbladder: Unremarkable. Spleen: Normal in size and attenuation. Pancreas: Unremarkable. Adrenal glands: There is mild adrenal gland thickening similar to the prior study. Kidneys: There are multiple bilateral renal cysts. There is also indeterminate 27 mm upper pole left renal lesion. This is larger than on the prior study. A dedicated renal CT scanner MRI is recommended in follow-up there are bilateral intrarenal calculi. There is no hydronephrosis. There are multiple pelvic basin calcifications. Phleboliths are favored over nonobstructing ureteral calculi. Bowel: There are no transition zones indicate bowel obstruction. There is no evidence of acute diverticulitis. The appendix appears normal. Peritoneum: There is no intraperitoneal free air or abdominal ascites. Vasculature: The abdominal aorta is normal in course and caliber. Adenopathy: None. Pelvic viscera: The bladder, and pelvic viscera are unremarkable. Skeletal structures: There is a stable 24 mm right anterior abdominal wall nodule, likely representing a postsurgical keloid or desmoid. IMPRESSION: 1. Bilateral nephrolithiasis 2. No evidence of hydronephrosis. No ureteral or bladder calculi are visualized 3. Normal appendix 4. No evidence of acute diverticulitis 5. Enlarging indeterminate 27 mm left renal mass. A dedicated renal CT scan or MRI is recommended in follow-up ACT 112: Positive. There are findings on this exam that require communication between the performing entity and the patient following Patient Test Result Information Act ([place] Act 112) guidelines. Electronically signed by: Eliazar Constantino M.D. 08/02/2020 5:45 PM Dictated: 08/02/201737Transcribed: 08/02/201737 [facility], [id number] XRay Report Patient: MARIUM TREJO Date: 08/02/20MR#: [id number]: [address]Acct ID:[id number]: Date: 1980[facility] Zip: [place], [place] [address]Wgo: 39Location: EDSex: FRoom/Bed:Att Phy:Diagnosis: BACK PAIN, VOMITINGPri Phy: Jacques Zhang, III, CRNPService Date: 08/02/20Fam Phy:Interpreting Phy: Eliazar Constantino MDAdmit Phy: Ordering Phy: Arian Wilson M.D. cc: ~ XR chest 1V portable CLINICAL HISTORY: Pain radiating to the abdomen COMPARISON STUDY: 12/05/2018 FINDINGS: The heart remains enlarged. There is mild interstitial prominence unchanged from the prior study. This may in part be secondary to technical factors given the patient's body habitus and AP technique. There is no focal pulmonary consolidation. There are no pleural effusions. There is no free int raperitoneal air.[ IMPRESSION: Stable mild cardiomegaly. No change from the prior study. No acute findings. ACT 112: Negative or not required by law. Electronically signed by: Eliazar Constantino M.D. 08/02/2020 4:48 PM Dictated: 08/02/201646Transcribed: 08/02/201646 Code Status & VTE Plan Code Status Full code VTE Prophylaxis Plan VTE Prophylaxis will be ordered: Yes PG Care Time/CCT Total # of Minutes Spent Total Time Spent with Patient: Total time spent is greater than 50% in coordination of care (as documented) at patient's floor/unit and/or counseling p atient: Coding Level of Care Code 55022 Initial Inpt Care Lvl 3 Diagnoses Acute pyelonephritis N10 Right sided abdominal pain R10.9 Vomiting R11.2 Nausea presence: with nausea Vomiting Intractability: non-intractable Vomiting type: unspecified Left kidney mass N28.89 Hypercholesterolemia E78.00 End-stage renal disease on hemodialysis N18.6; Z99.2 Hypertension I10 Renal cyst N28.1 GERD (gastroesophageal reflux disease) K21.9 (1) Vomiting Nausea presence: with nausea Vomiting Intractability: non-intractable Vomiting type: unspecified Qualified Code(s): R11.2 - Nausea with vomiting, unspecified
[2020-08-02] MEDS ORDERED: LOPERAMIDE HCL 2 MG CAP PO PRN (22:59)
[2020-08-02] MEDS ORDERED: LORazepam 0.5 MG TAB PO PRN (22:59)
[2020-08-02] MEDS ORDERED: ACETAMINOPHEN 325 MG TAB PO PRN (22:59)
[2020-08-02] MEDS ORDERED: diphenhydrAMINE 50 MG/ML VIAL IV PRN (22:59)
[2020-08-02] MEDS: HYDROmorphone INJ 1 MG/ML SYRINGE IV PRN (23:06)
[2020-08-02] MEDS ORDERED: CYCLOBENZAPRINE HCL 10 MG TAB PO PRN (23:13)
[2020-08-02] MEDS: ONDANSETRON INJ 2 MG/ML 2 ML VIAL IV PRN (23:51)
[2020-08-03] MEDS: TRIAMCINOLONE ACET 0.1% OINT 15 GM TUBE TOP SCH ×3 (02:05→20:08)
[2020-08-03] MEDS: HEPARIN SOD 5,000 UNIT/0.5 ML VIAL SQ SCH ×4 (02:06→15:42)
[2020-08-03] MEDS: ATORVASTATIN 10 MG TAB PO SCH ×2 (02:07→20:09)
[2020-08-03] MEDS: LABETALOL HCL 200 MG TAB PO SCH ×3 (02:08→20:09)
[2020-08-03] MEDS: PANTOprazole 40 MG TAB PO SCH ×3 (02:08→20:09)
[2020-08-03] MEDS: rifAXIMin 550 MG TABLET PO SCH ×2 (02:08→08:37)
[2020-08-03] MEDS: FAMOTIDINE 20 MG TAB PO SCH ×3 (02:09→20:09)
[2020-08-03] MEDS: ONDANSETRON INJ 2 MG/ML 2 ML VIAL IV PRN ×2 (07:28→21:01)
[2020-08-03] MEDS: HYDROmorphone INJ 1 MG/ML SYRINGE IV PRN ×4 (07:28→21:01)
[2020-08-03] MEDS: CALCIUM ACETATE 667 MG CAP/TAB PO SCH ×3 (08:39→16:03)
[2020-08-03] MEDS ORDERED: IOVERSOL 100ml IV ONE (09:29)
--- NOTE | 2020-08-03 10:12 | CT Scan Report ---
CT renal wo/w con HISTORY: 39 years-old Female enlarging L cyst visualized on A/P CT scan follow-up study in a patient with indeterminate lesion of the superior pole left kidney. COMPARISON: CT abdomen and pelvis 08/02/2020, 12/05/2018, 08/11/2017 TECHNIQUE: Multiple axial CT images of the abdomen were obtained both with and without the use of 94 mL Optiray 320 utilizing renal protocol. A dose lowering technique was used consistent with the [facility] [place]. FINDINGS: Cardiomegaly. Clear lung bases. No pneumatosis or pneumoperitoneum. The spleen, pancreas, adrenal gla nds and gallbladder are unremarkable. Liver is also within normal limits. Patency of the hepatic vein s. Atrophic kidneys with numerous bilateral nonobstructing renal calculi, left greater than right measur ing up to 6 mm. No ureteral calculi or obstructive uropathy. Numerous bilateral renal cysts. Within t he posterior aspect of the superior pole left kidney there is a 2.7 x 2.7 x 2.8 cm ovoid lesion which is intermediate attenuating on the noncontrast study, Hounsfield of 41. The postcontrast images demo nstrate Hounsfield unit of 43 and the delayed images demonstrate Hounsfield unit of 44. No enhancing renal mass lesion identified. No abdominal aortic aneurysm or adenopathy. Unremarkable IVC. No bowel obstruction or bowel wall thic kening. Colonic diverticulosis. No ascites or mesenteric inflammation. Decompressed splenic flexure. Noninflamed appendix. Diastases recti. Unremarkable soft tissues. Degenerative changes of the spine. No acute fracture or suspicious bone lesion. IMPRESSION: 1. Intermediate attenuating lesion of the posterior aspect superior pole left kidney measuring up to 2.8 cm demonstrates no appreciable enhancement and is suggestive of a hemorrhagic or proteinaceous cy st. 2. No enhancing renal mass lesion identified. 3. Mildly atrophic bilateral kidneys with numerous bilateral renal cysts. 4. Nonobstructing left greater than right nephrolithiasis. No hydronephrosis. 5. No bowel obstruction or bowel wall thickening. ACT 112: Negative or not required by law. The above report was generated using voice recognition software. It may contain grammatical, syntax o r spelling errors. Electronically signed by: Aden Perez M.D. 08/03/2020 10:10 AM
--- NOTE | 2020-08-03 11:31 | Hospitalist Progress Note ---
Date of Service August 03, 2020 Assessment & Plan (1) Right sided abdominal pain: Mrs. Gallardo is a 39 yo woman with PMHx of ESRD on , Fri hemodialysis, admitted for evaluation of progressive abdominal discomfort and nausea. - etiology of abdominal pain is uncertain - CT scan of abdomen/pelvis showed multiple, bilateral renal cysts, bilateral intrarenal calculi, no hydronephrosis. There is also indeterminate 27 mm upper pole left renal lesion, measuring larger than on prior study. Otherwise, no abnormalities. - A dedicated renal CT scan was ordered to further characterize 27 mm left sided lesion: intermediate attenuating lesion of the posterior aspect superior pole left kidney measuring up to 2.8 cm demonstrates no appreciable enhancement and is suggestive of a hemorrhagic or proteinaceous cyst; while pain could be explained by a bleeding cyst, the hemorrhagic cyst is contralateral side to where she feels most of her discomfort - patient was given 1 dose of Ceftriaxone in the ED with concerns for a developing pyelonephritis, however patient is afebrile and WBC is normal. No concern for pyelo at this time. follow urine culture. If positive, resume antibiotics. - patient does have history of IBS -diarrhea predominant. She competed a course of rifaximin 1 week ago. It is possible bowel irregularity is moving to constipated side. Ordered Miralax. - Tylenol and Dilaudid ordered prn for pain control (2) Vomiting: - non-bloody, non-bilious - etiology unknown. Possibly secondary to constipation - Zofran and Phenergan ordered prn for nausea - patient tolerating her dialysis diet (3) Left kidney mass: - as above (4) Abnormal urinalysis: - UA 2+ for LE, 1+ bacteria, > 30 WBCs, neg for nitrites - Urine culture pending - patient given one dose of Ceftriaxone in the ED; will discontinue for now, as patient is not symptomatic, nor is she ill (5) Hypercholesterolemia: - Continue atorvastatin 10 mg daily (6) End-stage renal disease on hemodialysis: - typically on , Fri HD; however she received dialysis 07/23 due to national holiday being today - nephrology consulted - follows with Dr. Crawford as outpatient - Continue cinacalcet (7) Hypertension: - Continue labetalol 800 mg p.o. twice daily with hold parameters - BP 133/83 on exam today (8) Renal cyst: - as above (9) Irritable bowel syndrome with diarrhea: - follows with Dr. Stafford at [facility] - completed 2 courses of Rifaximin - it is possible irregularity of bowel has transitioned to constipation (10) GERD (gastroesophageal reflux disease): - Continue pantoprazole 40 mg p.o. twice daily and famotidine 20 mg p.o. twice daily - obesity likely contribution to disease process - recommend consideration of surgical weight loss Dispo: Med/surg Diet: Dialysis diet DVT ppx: Heparin Code: Full Admission and Anticipated Discharge Date Admission Date: August 02, 2020 Supervising Physician Co-Signing Physician Notes Resident Physician Supervision Note: I was present with Dr. Delmi Gaytan during the history and exam. I discussed the case with the resident and agree with the findings and plan as documented in the note. Any exceptions or clarifications are listed here: None this pt has persistent abdominal pain and nausea, she remains constipated vital signs are stable will focus on improving bowel function in the face of her IBDs and see it that improves her symptoms Documented By: David Raines MD Subjective Patient complaining of continued abdominal discomfort and nausea. zofran not helping. She denies eating anything out of the ordinary. No marijuana use. Denies any recent diarrhea - completed 2nd course of Rifaximin for IBS-diarrhea predominant 1 week ago. She did have a BM yesterday, but it was small. Pain was progressive over past few days - she as been eating some but not at lot (due to nausea and early satiety) Review of Systems Gastrointestinal: + abdominal pain, + early satiety and + nausea Genitourinary: no dysuria and no urinary frequency Physical Exam Constitutional: well developed, well nourished, + obese and cooperative Eyes: + anicteric sclerae ENMT: external ear and nose normal, oropharynx normal Neck: normal visual inspection and trachea midline Respiratory: normal respiratory effort, lungs clear to auscultation Cardiovascular: RRR, no murmur, no edema Heart Sounds: normal S1 and normal S2 Gastrointestinal (Abdomen): Inspection/Auscultation: normal bowel sounds and + significant pannus Percussion/Palpation: + abdomen tender (epigastrum ) and abdomen soft; no guarding Skin: no rashes, warm and dry Psychiatric: A+Ox3, euthymic affect Results & Data Results & Data ([facility]) Vital Signs (Past 12 Hours) Vital Signs Temp Pulse Resp BP Pulse Ox 08/03/20 08:07 36.7 C 73 16 133/83 95 08/03/20 00:13 36.8 C 77 20 165/99 H 99 Resident Activity Tracking Resident Involvement: Resident Care Provided Care Provided: Adult Hospital Medicine (1) Vomiting Nausea presence: with nausea Vomiting Intractability: non-intractable Vomiting type: unspecified Qualified Code(s): R11.2 - Nausea with vomiting, unspecified
[2020-08-03] MEDS: POLYETHYLENE (MIRALAX) 17 GM PACK PO PRN (12:37)
[2020-08-03] MEDS: POLYETHYLENE (MIRALAX) 17 GM PACK PO SCH ×2 (12:43→14:49)
--- NOTE | 2020-08-03 15:53 | Billing Data ---
Date of Service August 03, 2020 Coding Level of Care Code 08852 Subseq Hosp Care Lvl 2
[2020-08-03] MEDS: PROMETHAZINE HCL 6.25 MG in SODIUM CHLORIDE 0.9% 50 ML IV PRN ×2 (15:56→21:45)
[2020-08-03] MEDS ORDERED: cefTRIAXone SODIUM 2,000 MG in DEXTROSE 5% 50 ML IV SCH (18:00)
[2020-08-03] MEDS ORDERED: AMITRIPTYLINE HCL 50 MG TAB PO SCH (21:00)
[2020-08-04] MEDS: HEPARIN SOD 5,000 UNIT/0.5 ML VIAL SQ SCH ×2 (00:56→07:23)
[2020-08-04] MEDS: ONDANSETRON INJ 2 MG/ML 2 ML VIAL IV PRN (07:22)
[2020-08-04] MEDS: PANTOprazole 40 MG TAB PO SCH (08:16)
[2020-08-04] MEDS: FAMOTIDINE 20 MG TAB PO SCH (08:16)
[2020-08-04] MEDS: POLYETHYLENE (MIRALAX) 17 GM PACK PO SCH (08:16)
[2020-08-04] MEDS: TRIAMCINOLONE ACET 0.1% OINT 15 GM TUBE TOP SCH (08:17)
[2020-08-04] MEDS: CALCIUM ACETATE 667 MG CAP/TAB PO SCH ×3 (08:17→17:21)
[2020-08-04] MEDS ORDERED: DOCUSATE SODIUM 100 MG CAP PO ONE (08:41)
[2020-08-04] MEDS: LABETALOL HCL 200 MG TAB PO SCH ×2 (09:26→09:28)
[2020-08-04] MEDS: POLYETHYLENE (MIRALAX) 17 GM PACK PO PRN (10:05)
[2020-08-04] MEDS: PROMETHAZINE HCL 6.25 MG in SODIUM CHLORIDE 0.9% 50 ML IV PRN (10:23)
[2020-08-04 10:35] LABS: BUN Creatinine Ratio 3.2 (10-20); Creatinine Clr Calc Pharmacy 9.4 ml/min; Est GFR (African American) 5.1; Est GFR (Non-African American) 4.4; Potassium 3.8 mmol/L (3.5-5.1)
[2020-08-04] MEDS ORDERED: POLYETHYLENE (MIRALAX) 17 GM PACK PO ONE (11:41)
--- NOTE | 2020-08-04 11:44 | Nephrology Consultation ---
Date of Consultation August 04, 2020 Assessment & Plan (1) End-stage renal disease on hemodialysis: * TTS schedule at [facility] as outpatient, schedule adjusted for holiday * Plan HD today with anticipated possible discharge home over the weekend * Orders for HD entered into the EMR and reviewed with the dialysis nurse * Rx 3 hrs 45 minutes @ Qb 450 Qd 800, 3K 2.5 Ca * EDW 113.5 * Volume status acceptable * Minimal fluid retention on exam but BP elevated and Na low, will challenge EDW today with UF goal 2-2.5 L * Hyponatremia associate with decreased PO solute intake, fluid restriction reviewed (2) Right sided abdominal pain: * Etiology unclear * Constipation being treated with Miralax * CT reviewed (3) Secondary hyperparathyroidism of renal origin: * Continue calcium acetate with meals * May hold Cinacalet while inpatient (4) Hypertension: * BP acceptable * Will monitor * No change to home therapy (5) Renal cyst: * Will require outpatient follow up and monitoring History of Present Illness Reason for Consultation: ESRD Requesting Physician: Stan Morrow DO Attending Physician: Stan Morrow DO History of Present Illness Astrid Gallardo is a 39-year-old female with ESRD due to hypertensive nephropathy. She dialyzes at [facility] on a TTS schedule. I know Astrid well having followed her at dialysis. Astrid has been on HD for several years. She has unfortunately not been a transplant candidate due to obesity. Thankfully she has been tolerating HD well without complications. Right radiocephalic AVF [place] [address] Sherman. The access has been working well. Astrid completed her most recent dialysis treatment on 08/02/2020 without complications. Schedule was adjusted for the holiday. Her next scheduled treatment would have been tomorrow as an outpatient. Unfortunately, following HD, Astrid presented to the ER with ongoing abdominal pain, nausea, and vomiting. Symptoms started on Friday or Friday but were progressively becoming worse. She describes similar symptoms in 2017 when she was admitted to [facility] with gastric ulcers. Astrid notes that the severity of her current symptoms was however much worse. She also notes that she has been constipated. She has been following with Dr. Chavez in the GI clinic regarding IBS and felt her current symptoms were related to IBS. Evaluation, including abdominal CT scan, has been unrevealing. A small complex renal cyst was noted in the left kidney but otherwise no abnormal findings. Urine studies did not demonstrate evidence of UTI. GI discomfort and pain are improving but some nausea and poor appetite as well as constipation persist. Oral intake has been reduced. Astrid continues to make urine. Miralax was provided this AM. Astrid is interested in completing HD today for clearance and UF. Allergies Allergy/AdvReac Type Severity Reaction Status Date / Time No Known Allergies Allergy Verified 08/02/20 19:41 Home Medications Medication Instructions Recorded Confirmed Type amitriptyline 50 mg PO QAM 09/30/18 08/02/20 History calcium acetate(phosphat bind) 2,001 mg PO TIDM 09/30/18 08/02/20 History lorazepam 0.25 mg PO Q8 PRN 09/30/18 08/02/20 History famotidine 20 mg PO BID #20 tab 12/05/18 08/02/20 Rx loperamide 2 mg capsule 2 mg PO Q4H PRN #60 cap 05/26/19 08/02/20 Rx labetalol 200 mg tablet 800 mg PO BID #720 tab 09/06/19 08/02/20 Rx cyclobenzaprine 10 mg tablet 10 mg PO TID PRN #90 tab 12/07/19 08/02/20 Rx pantoprazole 40 mg tablet,delayed 40 mg PO BID #180 tab 12/17/19 08/02/20 Rx release atorvastatin 10 mg tablet 10 mg PO QPM #90 tab 03/08/20 08/02/20 Rx triamcinolone acetonide 0.1 % 1 appln TOP BID #80 gm 03/10/20 08/02/20 Rx topical ointment rifaximin 550 mg tablet 550 mg PO BID #60 tab 03/20/20 08/02/20 Rx cinacalcet 30 mg PO DAILY 08/02/20 08/02/20 History Patient History Medical History A-V fistula right arm Asthma Chronic back pain Chronic kidney disease (CKD), stage IV (severe) dialysis shi/deborah--follows with Dr. Crawford Depression with anxiety End stage renal disease End-stage renal disease on hemodialysis GERD (gastroesophageal reflux disease) Heart murmur History of gastric ulcer Hypertension Low thyroid stimulating hormone (TSH) level LVH (left ventricular hypertrophy) Morbid obesity with BMI of 45.0-49.9, adult Nephrolithiasis Renal cyst Surgical History History of abdominal surgery repair skin around scar History of abdominoplasty History of section x4 History of esophagogastroduodenoscopy (EGD) History of wisdom tooth extraction Family History Mother Family history of diabetes mellitus Sister Family history of diabetes mellitus x3 Aunt Heart disease Father Family history of kidney disease Other No family history of adverse response to anesthesia Denies family history of Pancreatic cancer Ovarian cancer Prostate cancer Myocardial infarction Breast cancer Colorectal cancer Uterine cancer Social History Smoking Status: Never smoker Second Hand Exposure: No; Do You Dip or Chew Tobacco: No; Hx Alcohol Use: No Hx Substance Use: No Preferred Language: Iranian Communication Ability: Effective Child Study Team Director Required: No Beliefs That Will Affect Care: None marital status: Single Current Living Situation: Family Current Living Situation Comment: Lives with 2 kids Other Information That Helps Us Care for You: No Feels Safe at Home: Yes Safety Concerns: Feels Safe At This Time Assistive Devices: None Review of Systems Review of Systems: All systems reviewed & are unremarkable except as noted in HPI & below Constitutional: no fever, no chills, no anorexia, no weight loss, no weight gain and no problem reported Eyes: no problem reported Ear, Nose, Mouth, Throat: no problem reported Respiratory: no dyspnea and no problem reported Cardiovascular: no chest pain, no palpitations, no edema and no problem reported Gastrointestinal: + abdominal pain, + nausea, + vomiting (resolved), + change in bowel habits and + constipation; no hematemesis, no pain with swallowing, no cramping, no blood in stools and no problem reported Musculoskeletal: no problem reported Integumentary: no problem reported Neurologic: no problem reported Psychiatric: no problem reported Endocrine: no problem reported Hematologic / Lymphatic: no problem reported Physical Exam Constitutional: well developed; no acute distress Eyes: no scleral abnormality and no corneal abnormality ENMT: Mouth: no oral mucosal abnormality and oral mucous membranes not dry Neck: normal visual inspection and trachea midline Respiratory: normal respiratory effort Auscultation: lungs clear to auscultation bilaterally Cardiovascular: Rate/Rhythm: regular rate Heart Sounds: normal S1, normal S2 and + murmur Vessels: no JVD Extremities: no edema Gastrointestinal (Abdomen): Percussion/Palpation: abdomen soft; abdomen nontender Musculoskeletal: Extremities: no cyanosis and no clubbing Skin: normal turgor; no lesions Neurologic: Motor/Sensory: no tremor and no asterixis Psychiatric: Orientation: alert and oriented x 3 Results & Data ([facility]) Vital Signs (Past 12 Hours) Vital Signs Temp Pulse Resp BP Pulse Ox 08/04/20 07:25 36.9 C 78 16 152/96 H 97 Laboratory Results Laboratory Results - last 24 hr 08/04/20 09:32 Sodium 131 L Potassium 3.8 Chloride 94 L Carbon Dioxide 28 Anion Gap 9.0 BUN 31 H D Creatinine 9.84 H* D Est Cr Clr Drug Dosing 9.4 Est GFR ( Amer) 5.1 Est GFR (Non-Af Amer) 4.4 BUN/Creatinine Ratio 3.2 L Glucose 87 Calcium 9.0 PG Care Time/CCT Total # of Minutes Spent Total Time Spent with Patient: Total time spent is greater than 50% in coordination of care (as documented) at patient's floor/unit and/or counseling patient: Coding Level of Care Code 70791 Inpt Consult Level 4 Diagnoses End-stage renal disease on hemodialysis N18.6; Z99.2 Right sided abdominal pain R10.9 Secondary hyperparathyroidism of renal origin N25.81 Hypertension I10 Renal cyst N28.1
--- NOTE | 2020-08-04 17:14 | Discharge Summary ---
Date of Service August 04, 2020 Admission HPI Per Admitting Provider The patient is a 39-year-old female with a past medical history including hypercholesterolemia, irritable bowel syndrome with diarrhea, ESRD on HD, secondary hyperparathyroidism, vitamin D deficiency, recurrent UTI, psoriasis, hypertension, asthma, chronic back pain, depression with anxiety, LVH, and renal cyst. The patient reports she was at dialysis earlier in the day, and since that time has continued to feel worsening symptoms that initially began 3 days ago. She presented to the ED with the symptoms as noted. Work-up in the emergency department included a CT scan of abdomen and pelvis which reported a increasing in size 27 mm left renal mass, a urinalysis was suggestive of a urinary tract infection. In the emergency department, patient received ceftriaxone 2 g IV, Dilaudid 1 mg IV, Benadryl 12.5 mg IV and normal saline boluses of 500 mL and then 250 mL Admission Exam Per Admitting Provider The patient is awake, alert and oriented 3, well developed and well nourished, normocephalic and atraumatic, lying in bed and in no acute distress. HEENT--PERRL, EOMI, mucous membranes and oropharynx dry. Neck--supple. No JVD. No bruits. Thyroid normal, trachea midline, no adenopathy. Heart--normal S1 and S2. No murmurs, rubs or gallops. Lungs--clear bilaterally, no respiratory distress, no accessory muscle use. Abdomen--normal bowel sounds and soft. Generalized abdominal tenderness. Nondistended. Obese. Extremities--no cyanosis or clubbing. No edema. Dermatologic--normal skin turgor, normal color, no abnormal lymph nodes, no rash. Neurologic--cranial nerves II through XII grossly intact. Rheumatologic--normal range of motion. Psychiatric--normal affect. Principal Diagnosis abdominal pain Discharge Exam Constitutional well developed, well nourished, + obese and cooperative Eyes + anicteric sclerae ENMT external ear and nose normal, oropharynx normal Neck normal visual inspection and trachea midline Respiratory normal respiratory effort, lungs clear to auscultation Cardiovascular RRR, no murmur, no edema Heart Sounds: normal S1 and normal S2 Gastrointestinal (Abdomen) Inspection/Auscultation: normal bowel sounds and + significant pannus Percussion/Palpation: + abdomen tender (epigastrum ) and abdomen soft; no guarding Skin no rashes, warm and dry Psychiatric A+Ox3, euthymic affect Discharge Data Allergies Allergy/AdvReac Type Severity Reaction Status Date / Time No Known Allergies Allergy Verified 08/02/20 19:41 Consultations 08/02/20 19:07 ED Decision to Admit Stat 08/04/20 08:42 Consult Nephrology Routine Ordered Studies 08/02/20 16:24 CT abd pelvis wo con Stat 08/03/20 08:53 CT renal wo/w con Routine Hospital Course (1) Right sided abdominal pain: Mrs. Gallardo is a 39 yo woman with PMHx of ESRD on Tue,Lisa, Sat hemodialysis, admitted for evaluation of progressive abdominal discomfort and nausea. - etiology of abdominal pain thought to be secondary to constipation/distention of bowel due to flatulence - CT scan of abdomen/pelvis showed multiple, bilateral renal cysts, bilateral intrarenal calculi, no hydronephrosis. There is also indeterminate 27 mm upper pole left renal lesion, measuring larger than on prior study. Some stool in colon, but not excessive wall to wall burden; gas visualized throughout colon. Otherwise, no abnormalities. - A dedicated renal CT scan was ordered to further characterize 27 mm left sided lesion: intermediate attenuating lesion of the posterior aspect superior pole left kidney measuring up to 2.8 cm demonstrates no appreciable enhancement and is suggestive of a hemorrhagic or proteinaceous cyst; while pain could be explained by a bleeding cyst, the hemorrhagic cyst is contralateral side to where she feels most of her discomfort. Nephrology to monitor/surveil cysts in outpatient setting. - patient does have history of IBS -diarrhea predominant. She competed a course of rifaximin 1 week ago. It is possible bowel irregularity is moving to constipated side. - patient was treated with Miralax. Her abdominal pain dramatically improved after she passed a bowel movement Outpatient items to do: Recommend daily fiber supplement and regular aerobic exercise. Kidney cyst surveillance as above. (2) Vomiting: - non-bloody, non-bilious - thought to be secondary to constipation - patient tolerating her dialysis diet without recurrent symptoms by the time of discharge (3) Left kidney mass: - as above (4) Abnormal urinalysis: - UA 2+ for LE, 1+ bacteria, > 30 WBCs, neg for nitrites - Urine culture pinpoint growth only - patient given one dose of Ceftriaxone in the ED; discontinued (5) Hypercholesterolemia: - Continue atorvastatin 10 mg daily (6) End-stage renal disease on hemodialysis: - typically on , Fri HD; however she was dialyzed on 08/02 and 08/04 due to the holiday schedule - resume HD schedule per guidance of nephrology (7) Hypertension: - Continue labetalol 800 mg p.o. twice daily with hold parameters - BP 124/83 on exam today (8) Renal cyst: - as above (9) Irritable bowel syndrome with diarrhea: - follows with Dr. Stafford at [facility] - completed 2 courses of Rifaximin - it is possible irregularity of bowel has transitioned to constipation - recommend daily fiber supplement for bowel regularity + daily aerobic exercise (10) GERD (gastroesophageal reflux disease): - Continue pantoprazole 40 mg p.o. twice daily and famotidine 20 mg p.o. twice daily - obesity likely contribution to disease process - recommend consideration of medical/surgical weight loss Total Time Total Time Spent Total Time Spent (In Minutes): <30 Discharge Plan Discharge Items Patient Disposition: Home - Self-Care Reason For Visit: PYELONEPHRITIS, INTRACTABLE N/V Discharge Diagnosis: abdominal pain Condition on Discharge: Fair Activity: Resume your previous activity Non-emergency contact: Primary Care Provider Call non-emergency contact if: your symptoms worsen Follow-up/Referrals: Jacques Zhang III, CRNP [Primary Care Provider] - Diet: Dialysis Renal Addtl Attending Provider Instructions: You were hospitalized at [facility] for evaluation of abdominal pain and nausea. A cat scan of your abdomen was ordered and showed bilateral kidney cysts (although you have known cysts on your kidneys, this information was not new), and bilateral kidney stones. On your left kidney there was one mass that appeared to have grown in size when compared to previous imaging. We ordered a follow up cat scan, specifically of your left kidney to better fabricio acterize this finding: fortunately it revealed a cystic appearance (which is reassuring). Your cysts will be followed by nephrology as an outpatient. We often see stones in patient's kidneys - when stones are in the kidney, they are not painful. It is not until they descend down the ureters that they become painful. Often times stones dissolve or break apart in the kidney before they even exit the kidney. Thus, we do not feel as though your pain can be attributed to the stones in your kidney. Your urine was initially suspicious for infection, and we gave you one dose of IV antibiotics. However no bacteria grew in your urine culture by the time of your discharge. The cause of your abdominal pain and nausea was never completed determined, although we think it may have been from constipation. Although your irritable bowel syndrome as been diarrhea predominant in the past, sometimes we see the bowels "seesaw" the other direction and move to a constipated state. We gave you Miralax and you had a bowel movement, which after you feel better, which supports this idea. We recommend you take a daily fiber supplement to keep your bowels regular (not too loose, not too backed up). Getting regular aerobic physical activity (walking, biking, jogging) each day can also help keep your bowels regular. Pending Studies at Discharge: No Stand-Alone Forms: My [facility], Smoking Cessation Medications and DC Order Prescriptions: Continued labetalol 200 mg tablet 800 mg PO BID Qty: 720 RF: 3 cyclobenzaprine 10 mg tablet 10 mg PO TID PRN (Reason: muscle spasm) Qty: 90 RF: 1 pantoprazole 40 mg tablet,delayed release (DR/EC) 40 mg PO BID Qty: 180 RF: 1 atorvastatin [Lipitor] 10 mg tablet 10 mg PO QPM Qty: 90 RF: 1 triamcinolone acetonide 0.1 % ointment 1 appln TOP BID Qty: 80 RF: 2 loperamide 2 mg capsule 2 mg PO Q4H PRN (Reason: loose stool) Qty: 60 RF: 0 amitriptyline 50 mg Tablet 50 mg PO QAM RF: 0 lorazepam 0.5 mg Tablet 0.25 mg PO Q8 PRN (Reason: Anxiety) RF: 0 calcium acetate(phosphat bind) 667 mg Capsule 2,001 mg PO TIDM RF: 0 famotidine 20 mg tablet 20 mg PO BID Qty: 20 RF: 0 cinacalcet 30 mg tablet 30 mg PO DAILY RF: 0 Discontinued rifaximin 550 mg tablet 550 mg PO BID Qty: 60 RF: 2 Discharge Orders: Discharge Order (Routine); Ordered 08/04/20 Ordered By: Delmi Gaytan Admission Data Admit Date/Time: 08/02/20 20:34 Attending Provider: Stan Morrow Admit Provider: Jony Burton Primary Care Provider: Jacques Zhang III Other Providers: Jony Burton ; David Raines ; Juan Flores Other Interventions: Discharge Summary Assessment (RN) Last Done: 08/04/20 17:22 Supervising Physician Co-Signing Physician Notes I personally examined the patient and verified all paul points of history and exam, discussed case, and agree with decision making with Dr Gaytan. belly pain ongoing when we see her together this AM - then after additional miralax and BM pt felt up to going home. no f/c. some sweats when belly feels really bad. some vomiting this AM. able to drink. no urinary sx. vitals noted nad heent nc at mmm abd soft mild distention diffuse tenderness but fortunately no guarding/rebound/rigidity/no noted masses abdominal pain - fortunately no serious/threatening etiology unearthed despite fairly in-depth w/u and serial exams over 2 days. appearing most c/w IBS - and CT did show reasonable amount of gas and scattered areas of fairly dense stool on my review (obviously not enough to be pathologically significant by radiology review, but appears enough to support intestinal pain from stool/gas as culprit) - further corroborated by improvement with miralax and stooling. stable for home, outpt f/u otherwise as above Resident Activity Tracking Resident Involvement: Resident Care Provided Care Provided: Adult Hospital Medicine
--- NOTE | 2020-08-04 17:36 | Billing Data ---
Date of Service August 04, 2020 Coding Level of Care Code D/C Day Management <30 mins
== END 2020-08-04 18:02 | disposition home or self-care (01) | DRG 391 ==
LOC: ED 15:56 → SUATTDRO 20:34 → 3E 20:34

== ENCOUNTER 2022-11-23 10:29 | Inpatient (IN) ==
[2022-11-23] MEDS ORDERED: ONDANSETRON INJ 2 MG/ML 2 ML VIAL IV STA (10:39)
[2022-11-23] MEDS ORDERED: fentaNYL citrate PF 100 MCG/2 ML VIAL IV STA ×2 (10:39→11:51)
--- NOTE | 2022-11-23 10:44 | Emergency Department Note ---
Impression & Plan Abdominal pain, ESRD (end stage renal disease) on dialysis, Nausea & vomiting, Acute hyperkalemia, Weakness, Diarrhea ED Provider Note Provider: Joe Carrasquillo MD DATE OF SERVICE: 11/23/2022 CHIEF COMPLAINT: Abdominal pain, nausea vomiting diarrhea HISTORY OF PRESENT ILLNESS: Patient is a 41-year-old female history of end-stage renal disease on dialysis, GERD, IBS, and hypertension presenting here today via ambulance from her home. To get a bed today. Over the last day or 2 has developed increasing nausea vomiting and diarrhea. Nonbloody. Limited oral intake. Denies any falls or syncope. Reports feeling a bit short of breath particular when trying to exert herself. Again too weak to get out of bed make it to dialysis today but did have dialysis on . Denies significant swelling at this point. Denies recent URI symptoms such as cough or sore throat or congestion. Denies fever. No recent GI sick contact reported. Pain in the mid to lower abdomen. Does report some low back pain and right sciatica pain shooting down her leg as well. Again denies trauma. Does not repor any use of nausea medicine prior to arrival. PAST MEDICAL HISTORY: As noted above MEDICATIONS: Reviewed medication list SOCIAL HISTORY: Resides at home PHYSICAL EXAM: GENERAL: alert and oriented in no acute distress on stretcher Head: normocephalic and atraumatic EYES: No injection, discharge or icterus. NECK: Trachea midline. ENT: Mucous membranes pink and moist. LUNGS: Airway patent. No retractions. Breath sounds clear anteriorly HEART: Regular rate and rhythm. No chest wall tenderness ABDOMEN: Soft with mid abdominal tenderness. SKIN: Acyanotic, warm, dry, without rashes EXTREMITIES: Without swelling, tenderness or deformity of the lower extremities with the right upper extremity mid forearm fistula in place with palpable thrill. NEUROLOGICAL: No focal deficits moving all extremities. No facial droop, aphasia, or slurred speech. EK bpm normal sinus rhythm. No PVC or PAC. No acute ST segment elevation with some slightly prominent anterior T waves. Left axis. QTc 428. CONTINUOUS CARDIAC MONITORING: was ordered and showed a heart rate of 80s-90s bpm in normal sinus rhythm Patient's laboratory studies and imaging reviewed. Differential includes Gastroenteritis, food borne illness, infections, appendicitis, diverticulitis, inflammatory bowel disease, obstruction, GI bleed, biliary pathology, as well as other pathologies. IMPRESSION/MEDICAL DECISION MAKING: Patient with nausea vomiting diarrhea some abdominal pain. Also states she feels very weak and could not get out of bed and go to dialysis today. Reports feeling bit short of breath as well. Denies any URI symptoms. Afebrile here. Is on dialysis but does not appear significantly fluid overloaded at this point. Again has been having GI symptoms and may actually be a bit dehydrated. Given some fentanyl and Zofran for symptoms. Not hypoxic here. Chest x-ray per my review and interpretation as well as the radiologist without evidence of pneumonia or pneumothorax. Cardiomegaly noted but no significant pleural effusions are noted either. The abdominal pain sent for CT here and again basic blood work was sent. Stool testing to be ordered but does not report recent antibiotics. No recent travel. No other sick contacts reported. COVID test sent. Nonbloody nature to her GI symptoms of vomiting and diarrhea and doubt GI bleed. Blood work here with stable chronic anemia. Leukocytosis of 19 is noted. Negative COVID test. Question bacterial versus viral source for her symptoms. Stool cultures and C. difficile testing pending. Leukocytosis could be related to her nausea vomiting and a viral source as well as a bacterial source. CT abdomen pelvis per radiology report with some moderate gallbladder distention but no stranding. No evidence of appendicitis or bowel obstruction or kidney stones noted by report. We will complete ultrasound of the gallbladder she does have some upper abdominal tenderness but unsure if this truly explains all of her symptoms with the diarrhea. Electrolytes to return abnormal given her dialysis status elevated creatinine but also potassium of 6.8. Calcium gluconate, insulin glucose, and bicarb ordered. This is temporizing her EKG does have some slightly peaked T waves. Minimal troponin elevation given her CKD doubt this is of significance at 29. No evidence of hepatitis or pancreatitis based on labs and no bilirubin elevation. Given the hyperkalemia and that she missed dialysis today with her underlying ESRD reached out to nephrology. They will evaluate and state they have the ability to do dialysis this afternoon and will plan for this. Updated the patient. A little drowsy from the pain medicine but states her nausea is improved. Ultrasound report of the gallbladder will be obtained but given her GI symptoms with hyperkalemia and need for emergent dialysis for her hyperkalemia, will require admission at this point. Ultrasound report per radiology not that indicative of cholecystitis but could be a calculus and if persistent symptoms the radiologist recommended HIDA scan. In light of the e lectrolyte abnormality, we will proceed with dialysis and continue monitoring. Discussed with the hospitalist. Will empirically give a dose of cefepime for broad coverage given leukocytosis with her underlying comorbidities and risk factors although again this could be viral in nature. Stool sample pending for PCR testing. DIAGNOSIS: Abdominal pain, nausea vomiting diarrhea, hyperkalemia, end-stage renal disease on dialysis, weakness DISPOSITION: Hospitalist will evaluate Patient was agreeable with this plan. Critical Care I have personally spent 48 minutes of critical care time in the direct management of this patient. This includes bedside care, interpretation of diagnostic studies, and testing, discussion with consultants, patient, and other required patient management activities. These 48 minutes is in excess of all separately billable procedures. Past Med/Surg History Medical History A-V fistula right arm Abnormal MRI Asthma Chronic back pain Chronic kidney disease (CKD), stage IV (severe) dialysis shi/misty--follows with Dr. Crawofrd Depression with anxiety End stage renal disease End-stage renal disease on hemodialysis GERD (gastroesophageal reflux disease) Heart murmur History of gastric ulcer Hypertension Low thyroid stimulating hormone (TSH) level LVH (left ventricular hypertrophy) Morbid obesity with BMI of 45.0-49.9, adult Nephrolithiasis Renal cyst Surgical History H/O tubal ligation History of abdominal surgery repair skin around scar History of abdominoplasty History of section x4 History of esophagogastroduodenoscopy (EGD) History of wisdom tooth extraction Family History Mother Family history of diabetes mellitus Sister Family history of diabetes mellitus x3 Aunt Heart disease Father Family history of kidney disease Other No family history of adverse response to anesthesia Denies family history of Pancreatic cancer Ovarian cancer Prostate cancer Myocardial infarction Breast cancer Colorectal cancer Uterine cancer Social History Smoking Status: Never smoker Second Hand Exposure: No; Hx Alcohol Use: No Hx Substance Use: No Preferred Language: Vietnamese Communication Ability: Effective 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 Beliefs That Will Affect Care: None marital status: Single Current Living Situation: Family Current Living Situation Comment: Lives with 2 kids Feels Safe at Home: Yes Dental Care, Regularly: Yes Seatbelt Use: always Sunscreen Use: Yes Assistive Devices: None Allergies Allergies Allergy/AdvReac Type Severity Reaction Status Date / Time pneumococcal 7-valent Allergy Swelling Verified 08/26/22 13:41 conjugate to of [From Prevnar] Lip/Tongue/Throat Home Meds Home Medications Medication Instructions Recorded Confirmed calcium acetate(phosphat bind) 667 2,001 mg PO TIDM 09/30/18 11/23/22 mg capsule cinacalcet 30 mg tablet 30 mg PO DAILY 08/02/20 11/23/22 amlodipine 5 mg tablet 5 mg PO DAILY 11/23/22 11/23/22 labetalol 200 mg tablet 800 mg PO TID 11/23/22 11/23/22 pantoprazole 40 mg tablet,delayed 40 mg PO BID 11/23/22 11/23/22 release sumatriptan succinate 6 mg/0.5 mL 6 mg subcut .COMPLEX PRN Headache 11/23/22 11/23/22 subcutaneous pen injector triamcinolone acetonide 0.1 % 1 applic topical BID 11/23/22 11/23/22 topical ointment Previous Rx's Medication Instructions Recorded famotidine 20 mg tablet 20 mg PO BID #20 tabs 12/05/18 loperamide 2 mg capsule 2 mg PO Q4H PRN loose stool #60 05/26/19 caps atorvastatin 10 mg tablet (Lipitor) 10 mg PO QPM #90 tabs 03/08/20 promethazine 25 mg tablet 25 mg PO Q6H PRN nausea and 09/27/20 vomiting #30 tabs rizatriptan 10 mg disintegrating 10 mg PO Q2H PRN migraine headache 07/16/21 tablet #12 tabs cyclobenzaprine 5 mg tablet 5 mg PO HS PRN muscle spasm #30 10/19/21 tabs medroxyprogesterone 150 mg/mL 150 mg IM .q12wk #1 mL 03/08/22 intramuscular suspension gabapentin 100 mg capsule 100 mg PO TID #90 caps 08/12/22 amitriptyline 50 mg tablet 50 mg PO HS 30 days #30 tabs 08/23/22 cefdinir 300 mg capsule 300 mg PO BID 10 days #20 caps 10/09/22 cephalexin 250 mg capsule 250 mg PO BID 3 days #6 caps 10/28/22 eluxadoline 100 mg tablet (Viberzi) 100 mg PO BID IBS-D #60 tabs 11/13/22 Results & Data (ED) Vital Signs Vital Signs - 24 hr 11/23/22 10:36 11/23/22 10:36 11/23/22 11:04 Temperature 36.8 C Temperature Source Oral Oral Pulse Rate 91 H Pulse Rate [Right Finger] 90 Pulse Rhythm [Right Finger] Regular Pulse Strength [Right Finger] Normal Respiratory Rate 20 19 Respiratory Effort / Characteristics Non-Labored Non-Labored Spontaneous Respiratory Depth Normal Normal Respiratory Pattern Regular Regular Blood Pressure 93/62 L Blood Pressure [Left Radial Artery] 99/64 L Blood Pressure Mean 72 Blood Pressure Mean [Left Radial Artery] 75 Blood Pressure Position Sitting Blood Pressure Position [Left Radial Artery] Lying Pulse Oximetry 100 96 Oxygen Delivery Method Room Air Room Air Sepsis Recent Fever Within 48 Hours No Sepsis New/Unexplained Change in Mental Status No Sepsis Action Taken by Nursing No Action Required 11/23/22 11:02 11/23/22 13:01 11/23/22 13:11 Temperature 37.1 C Temperature Source Oral Pulse Rate 98 H Pulse Rate [Right Finger] 99 H Pulse Rhythm [Right Finger] Regular Pulse Strength [Right Finger] Normal Respiratory Rate 21 Respiratory Effort / Characteristics Non-Labored Spontaneous Respiratory Depth Normal Respiratory Pattern Regular Blood Pressure Blood Pressure [Left Radial Artery] 128/88 Blood Pressure Mean Blood Pressure Mean [Left Radial Artery] 101 Blood Pressure Position Blood Pressure Position [Left Radial Artery] Lying Pulse Oximetry 100 Oxygen Delivery Method Room Air Room Air Sepsis Recent Fever Within 48 Hours Sepsis New/Unexplained Change in Mental Status Sepsis Action Taken by Nursing Laboratory Data 11/23/22 11:00 11/23/22 11:00 Lab Results 11/23/22 11/23/22 11/23/22 Range/Units 11:00 11:00 11:00 WBC 19.12 H (4.8-10.8) K/ul RBC 2.93 L (4.20-5.40) M/uL Hgb 9.4 L (12.0-16.0) g/dl Hct 29.2 L (37.0-47.0) % MCV 99.7 (80.0-100.0) fL MCH 32.1 (25.0-34.0) pg MCHC 32.2 (32.0-36.0) g/dL RDW Std Deviation 58.6 H (36.4-46.3) fL RDW Coeff of Hosea 16.6 H (11.5-14.5) % Plt Count 278 (130-400) K/uL MPV 10.3 (9.4-12.4) fL Immature Gran % (Auto) 0.8 % Neut % (Auto) 90.8 % Lymph % (Auto) 3.2 % Garfield % (Auto) 2.8 % Eos % (Auto) 2.1 % Baso % (Auto) 0.3 % Neut # (Auto) 17.34 H (1.40-6.50) K/uL Lymph # (Auto) 0.61 L (1.2-3.4) K/uL Garfield # (Auto) 0.54 (0.11-0.59) K/uL Eos # (Auto) 0.41 (0-0.50) K/uL Baso # (Auto) 0.06 (0-0.2) K/uL Immature Gran # (Auto) 0.16 (0.01-0.20) K/uL RBC Morphology Unremarkable Sodium 132 L (136-145) mmol/L Potassium 6.8 H* (3.5-5.1) mmol/L Chloride 86 L (98-107) mmol/L Carbon Dioxide 24 (21-32) mmol/L Anion Gap 22 H (3-11) BUN 56 H (6-23) mg/dl Creatinine 12.39 H* (0.6-1.2) mg/dl Est Cr Clr Drug Dosing 5.7 ml/min Est GFR ( Amer) 3.8 ml/min Est GFR (Non-Af Amer) 3.3 ml/min BUN/Creatinine Ratio 4.5 L (10-20) Glucose 105 H (70-99(Fasting)) mg/dl Calcium 9.7 (8.5-10.1) mg/dl Magnesium 1.7 (1.7-2.4) mg/dl Total Bilirubin 0.4 (0.2-1.0) mg/dl AST 27 (13-39) U/L ALT 23 (7-52) U/L Alkaline Phosphatase 73 (34-104) U/L Troponin I High Sens 29.0 H (0-14) pg/ml Total Protein 7.6 (6.0-8.3) gm/dl Albumin 4.0 (3.4-5.0) gm/dl Globulin 3.6 (2.5-4.0) gm/dl Albumin/Globulin Ratio 1.1 (0.9-2) Lipase 11 (11-82) U/L HCG, Qual Negative (Negative) SARS-CoV-2, RNA, NAAT (NEGATIVE) 11/23/22 Range/Units 11:00 WBC (4.8-10.8) K/ul RBC (4.20-5.40) M/uL Hgb (12.0-16.0) g/dl Hct (37.0-47.0) % MCV (80.0-100.0) fL MCH (25.0-34.0) pg MCHC (32.0-36.0) g/dL RDW Std Deviation (36.4-46.3) fL RDW Coeff of Hosea (11.5-14.5) % Plt Count (130-400) K/uL MPV (9.4-12.4) fL Immature Gran % (Auto) % Neut % (Auto) % Lymph % (Auto) % Garfield % (Auto) % Eos % (Auto) % Baso % (Auto) % Neut # (Auto) (1.40-6.50) K/uL Lymph # (Auto) (1.2-3.4) K/uL Garfield # (Auto) (0.11-0.59) K/uL Eos # (Auto) (0-0.50) K/uL Baso # (Auto) (0-0.2) K/uL Immature Gran # (Auto) (0.01-0.20) K/uL RBC Morphology Sodium (136-145) mmol/L Potassium (3.5-5.1) mmol/L Chloride (98-107) mmol/L Carbon Dioxide (21-32) mmol/L Anion Gap (3-11) BUN (6-23) mg/dl Creatinine (0.6-1.2) mg/dl Est Cr Clr Drug Dosing ml/min Est GFR ( Amer) ml/min Est GFR (Non-Af Amer) ml/min BUN/Creatinine Ratio (10-20) Glucose (70-99(Fasting)) mg/dl Calcium (8.5-10.1) mg/dl Magnesium (1.7-2.4) mg/dl Total Bilirubin (0.2-1.0) mg/dl AST (13-39) U/L ALT (7-52) U/L Alkaline Phosphatase (34-104) U/L Troponin I High Sens (0-14) pg/ml Total Protein (6.0-8.3) gm/dl Albumin (3.4-5.0) gm/dl Globulin (2.5-4.0) gm/dl Albumin/Globulin Ratio (0.9-2) Lipase (11-82) U/L HCG, Qual (Negative) SARS-CoV-2, RNA, NAAT NEGATIVE (NEGATIVE) Administered Medications Heparin Sodium (Porcine) (Heparin Sod (Porcine) 1000 Unit/Ml) 2,000 units IV TODAY@1400 [facility] Stop: 11/23/22 18:00 Last Admin: 11/23/22 14:06 Dose: Not Given Documented By: CONTRERAS Discontinued Medications Dextrose (Dextrose 50% 50 Ml Syringe) 50 ml IV NOW ONE Stop: 11/23/22 12:25 Last Admin: 11/23/22 12:44 Dose: 50 ml Documented By: ANTONIETA Fentanyl Citrate (Fentanyl Citrate 100 Mcg/2 Ml Vial) 50 mcg IV NOW STA Stop: 11/23/22 10:40 Last Admin: 11/23/22 11:00 Dose: 50 mcg Documented By: ANTONIETA Fentanyl Citrate (Fentanyl Citrate 100 Mcg/2 Ml Vial) 50 mcg IV NOW STA Stop: 11/23/22 11:52 Last Admin: 11/23/22 12:07 Dose: 50 mcg Documented By: ANTONIETA Calcium Gluconate () 1,000 mg in 60 mls @ 240 mls/hr IV Q15M [facility] Stop: 11/23/22 12:59 Last Admin: 11/23/22 14:05 Dose: 240 mls/hr Documented By: Infusion: 11/23/22 13:05 Dose: 240 mls/hr Documented By: Admin: 11/23/22 12:50 Dose: 240 mls/hr Documented By: ANTONIETA Insulin Human Regular (Novolin-R Insulin Per Unit Charge) 10 units IV NOW STA Stop: 11/23/22 12:26 Last Admin: 11/23/22 12:49 Dose: 10 units Documented By: ANTONIETA Co-signed By: JIM Ondansetron HCl (Ondansetron Inj 2 Mg/Ml 2 Ml Vial) 4 mg IV NOW STA Stop: 11/23/22 10:40 Last Admin: 11/23/22 10:58 Dose: 4 mg Documented By: ANTONIETA Sodium Bicarbonate (Sodium Bicarb 8.4% Inj 50 Meq/50 Ml Syr) 50 meq IV NOW STA Stop: 11/23/22 12:25 Last Admin: 11/23/22 12:40 Dose: 50 meq Documented By: ANTONIETA Imaging Data Radiologist's Impression: Abdomen/Pelvis CT 11/23/22 10:41 CT OF THE ABDOMEN AND PELVIS WITHOUT CONTRAST CLINICAL HISTORY: Mid abdominal pain. Nausea, vomiting and diarrhea. COMPARISON STUDY: CT of the abdomen and pelvis November 10, 2021 and renal ultrasound May 08, 2022. TECHNIQUE: Axial images of the abdomen and pelvis were obtained without IV contrast. Images were reviewed in the axial, sagittal, and coronal planes. Automated exposure control was utilized for the study. A dose lowering technique was utilized adhering to the principles of ALARA. FINDINGS: Lung bases are unremarkable. Cardiomegaly is noted. No pneumatosis, free air or portal venous gas is present. The gallbladder is moderately distended. There is no adjacent stranding. There is no biliary or pancreatic ductal dilatation. Evaluation of the abdomen and pelvis is suboptimal on this unenhanced exam. Spleen, adrenal glands and pancreas are unremarkable. The kidneys are replaced by innumerable cysts. A 3.8 cm lesion within the upper pole of the left kidney measures above water attenuation but was shown to represent a cyst on renal ultrasound April 08, 2022. Bilateral renal calculi measure up to 8 mm. There is no hydronephrosis. There are no ureteral calculi. Both kidneys are atrophic. There is no evidence for a bowel obstruction. The appendix is normal. Apparent colonic wall thickening is likely due to underdistention. There is no ascites. There is no lymphadenopathy. There are no acute fractures. Evidence for bilateral sacroiliitis, unchanged. IMPRESSION: 1. Moderate gallbladder distention. No adjacent stranding. However, if right upper quadrant pain, ultrasound is recommended to evaluate for acute cholecystitis. 2. No bowel obstruction. Apparent colonic wall thickening is likely due to underdistention. Normal appendix. 3. Innumerable renal cysts. Renal atrophy. Bilateral nephrolithiasis. No ureteral calculi. No hydronephrosis. ACT 112: Negative or not required by law. Electronically signed by: Jose Alberto Addison M.D. 11/23/2022 11:40 AM Chest X-Ray 11/23/22 10:41 XR chest 1V portable CLINICAL HISTORY: n/v, sob, abd pain COMPARISON STUDY: Chest radiograph August 02, 2020. FINDINGS: Lung volumes are normal. Lungs are clear. There is no pneumothorax or pleural effusion. Cardiomegaly is unchanged. Mediastinal contours are normal. There is no evidence for pulmonary edema. IMPRESSION: No acute cardiopulmonary findings. Cardiomegaly. No change in appearance of the chest. ACT 112: Negative or not required by law. Electronically signed by: Jose Alberto Addison M.D. 11/23/2022 10:53 AM Gallbladder Ultrasound 11/23/22 11:48 US gallbladder CLINICAL HISTORY: Abdominal, gallbladder distension COMPARISON STUDY: CT of the abdomen and pelvis performed earlier today. Right upper quadrant ultrasound August 13, 2017. FINDINGS: The liver is enlarged, measuring 22 cm in maximal dimension. There is a 2.4 cm echogenic focus within the left hepatic lobe. There is no biliary ductal dilatation. Common bile duct measures 4 mm in caliber. The gallbladder is moderately distended. There is no gallbladder wall thickening. No gallstones are identified. Sonographic Guaman sign could not be assessed for in this patient due to pain medication administration. The pancreas is obscured. The right kidney is atrophic and contains multiple cysts. IMPRESSION: 1. Moderate gallbladder distention. No gallstones. No gallbladder wall thickening. Unable to assess for sonographic Guaman sign. Acalculus cholecystitis is considered unlikely but would be difficult to exclude. This could be correlated with clinical evidence for acute cholecystitis and a hepatobiliary scan as indicated. 2. No biliary ductal dilatation. 3. Hepatomegaly. 2.4 cm echogenic focus within the left hepatic lobe. This is nonspecific although may reflect focal fat or a hemangioma. Nonemergent liver protocol MRI could be obtained for further evaluation. Alternatively, short-term follow-up ultrasound in 3-6 months could be obtained to ensure stability. ACT 112: Negative or not required by law. Electronically signed by: Jose Alberto Addison M.D. 11/23/2022 12:50 PM Discharge Plan Visit Data Chief Complaint: Illness Stated Complaint: NAUSEA, VOMITING, DIARRHEA, WEAKNESS ED Provider: Joe Carrasquillo Discharge Problem: Abdominal pain, ESRD (end stage renal disease) on dialysis, Nausea & vomiting, Acute hyperkalemia, Weakness, Diarrhea Abdominal pain Qualifiers: Abdominal location: generalized Qualified Code(s): R10.84 - Generalized abdominal pain Nausea & vomiting Qualifiers: Vomiting type: unspecified Qualified Code(s): R11.2 - Nausea with vomiting, unspecified Diarrhea Qualifiers: Diarrhea type: presumed infectious Qualified Code(s): R19.7 - Diarrhea, unspecified
--- NOTE | 2022-11-23 10:54 | XRay Report ---
XR chest 1V portable CLINICAL HISTORY: n/v, sob, abd pain COMPARISON STUDY: Chest radiograph August 02, 2020. FINDINGS: Lung volumes are normal. Lungs are clear. There is no pneumothorax or pleural effusion. Car diomegaly is unchanged. Mediastinal contours are normal. There is no evidence for pulmonary edema. IMPRESSION: No acute cardiopulmonary findings. Cardiomegaly. No change in appearance of the chest. ACT 112: Negative or not required by law. Electronically signed by: Jose Alberto Addison M.D. 11/23/2022 10:53 AM
[2022-11-23 11:31] LABS: Hematocrit (blood only) 29.2 % (37.0-47.0); Hemoglobin 9.4 g/dl (12.0-16.0); Mean Corpuscular Hemoglobin 32.1 pg (25.0-34.0); Mean Corpuscular Hgb Conc 32.2 g/dL (32.0-36.0); Mean Corpuscular Volume 99.7 fL (80.0-100.0); Mean Platelet Volume 10.3 fL (9.4-12.4); Platelet Count 278 K/uL (130-400); RDW Coefficient of Variation 16.6 % (11.5-14.5); RDW Standard Deviation 58.6 fL (36.4-46.3); Red Blood Count 2.93 M/uL (4.20-5.40); White Blood Count 19.12 K/ul (4.8-10.8)
--- NOTE | 2022-11-23 11:42 | CT Scan Report ---
CT OF THE ABDOMEN AND PELVIS WITHOUT CONTRAST CLINICAL HISTORY: Mid abdominal pain. Nausea, vomiting and diarrhea. COMPARISON STUDY: CT of the abdomen and pelvis November 10, 2021 and renal ultrasound May 08, 2022. TECHNIQUE: Axial images of the abdomen and pelvis were obtained without IV contrast. Images were revi ewed in the axial, sagittal, and coronal planes. Automated exposure control was utilized for the edgar dy. A dose lowering technique was utilized adhering to the principles of ALARA. FINDINGS: Lung bases are unremarkable. Cardiomegaly is noted. No pneumatosis, free air or portal veno us gas is present. The gallbladder is moderately distended. There is no adjacent stranding. There is no biliary or pancreatic ductal dilatation. Evaluation of the abdomen and pelvis is suboptimal on thi s unenhanced exam. Spleen, adrenal glands and pancreas are unremarkable. The kidneys are replaced by innumerable cysts. A 3.8 cm lesion within the upper pole of the left kidney measures above water atte nuation but was shown to represent a cyst on renal ultrasound April 08, 2022. Bilateral renal calculi measure up to 8 mm. There is no hydronephrosis. There are no ureteral calculi. Both kidneys are atro phic. There is no evidence for a bowel obstruction. The appendix is normal. Apparent colonic wall thi ckening is likely due to underdistention. There is no ascites. There is no lymphadenopathy. There are no acute fractures. Evidence for bilateral sacroiliitis, unchanged. IMPRESSION: 1. Moderate gallbladder distention. No adjacent stranding. However, if right upper quadrant pain, ult rasound is recommended to evaluate for acute cholecystitis. 2. No bowel obstruction. Apparent colonic wall thickening is likely due to underdistention. Normal ap pendix. 3. Innumerable renal cysts. Renal atrophy. Bilateral nephrolithiasis. No ureteral calculi. No hydrone phrosis. ACT 112: Negative or not required by law. Electronically signed by: Jose Alberto Addison M.D. 11/23/2022 11:40 AM
[2022-11-23 12:01] LABS: Pregnancy Test, Serum Negative (Negative)
[2022-11-23 12:17] LABS: Albumin Globulin Ratio 1.1 (0.9-2); BUN Creatinine Ratio 4.5 (10-20); Bilirubin,Total 0.4 mg/dl (0.2-1.0); Calcium 9.7 mg/dl (8.5-10.1); Creatinine Clr Calc Pharmacy 5.7 ml/min; Est GFR (African American) 3.8 ml/min; Est GFR (Non-African American) 3.3 ml/min; Globulin 3.6 gm/dl (2.5-4.0); Magnesium 1.7 mg/dl (1.7-2.4); Potassium 6.8 mmol/L (3.5-5.1); Total Protein 7.6 gm/dl (6.0-8.3)
[2022-11-23] MEDS ORDERED: DEXTROSE 50% 50 ML SYRINGE IV ONE (12:24)
[2022-11-23] MEDS ORDERED: SODIUM BICARB 8.4% INJ 50 MEQ/50 ML SYR IV STA (12:24)
[2022-11-23] MEDS ORDERED: NovoLIN-R INSULIN PER UNIT CHARGE IV STA (12:25)
[2022-11-23] MEDS ORDERED: SODIUM CHLORIDE 0.9% 1000ML 1,000 ML IV PRN (12:40)
[2022-11-23] MEDS: CALCIUM GLUCONATE 1,000 MG/60 ML BAG IV SCH ×2 (12:50→14:05)
--- NOTE | 2022-11-23 12:53 | Ultrasound Report ---
US gallbladder CLINICAL HISTORY: Abdominal, gallbladder distension COMPARISON STUDY: CT of the abdomen and pelvis performed earlier today. Right upper quadrant ultraso und August 13, 2017. FINDINGS: The liver is enlarged, measuring 22 cm in maximal dimension. There is a 2.4 cm echogenic fo cus within the left hepatic lobe. There is no biliary ductal dilatation. Common bile duct measures 4 mm in caliber. The gallbladder is moderately distended. There is no gallbladder wall thickening. No g allstones are identified. Sonographic Guaman sign could not be assessed for in this patient due to pa in medication administration. The pancreas is obscured. The right kidney is atrophic and contains mul tiple cysts. IMPRESSION: 1. Moderate gallbladder distention. No gallstones. No gallbladder wall thickening. Unable to assess f or sonographic Guaman sign. Acalculus cholecystitis is considered unlikely but would be difficult to exclude. This could be correlated with clinical evidence for acute cholecystitis and a hepatobiliary scan as indicated. 2. No biliary ductal dilatation. 3. Hepatomegaly. 2.4 cm echogenic focus within the left hepatic lobe. This is nonspecific although ma y reflect focal fat or a hemangioma. Nonemergent liver protocol MRI could be obtained for further eric luation. Alternatively, short-term follow-up ultrasound in 3-6 months could be obtained to ensure sta bility. ACT 112: Negative or not required by law. Electronically signed by: Jose Alberto Addison M.D. 11/23/2022 12:50 PM
[2022-11-23] MEDS ORDERED: cefTRIAXone SODIUM 2,000 MG/70 ML BAG IV STA (12:55)
--- NOTE | 2022-11-23 12:56 | Nephrology Consultation ---
Date of Consultation November 23, 2022 Assessment & Plan (1) Acute hyperkalemia: * Will provide emergency HD. fiber optics engineer notified and orders placed in EMR * 2K bath for correction of hyperkalemia. No UF due to relative hypotension (2) ESRD (end stage renal disease) on dialysis: * Outpatient HD Rx: [facility] TTS 3K 2.5Ca F-180NR Qb 430/Qd A1.5 EDW 127kg * R RC AVF created [address] Sherman * Removed from transplant list due to BMI > 35 (3) Diarrhea: * RUQ US - pending * Recommend checking lipase * Consider testing for enterovirus, C. Difficile History of Present Illness Reason for Consultation: ESKD, hyperkalemia History of Present Illness Ms. Gallardo is a 41 year old female who is seen at the request of Dr. Carrasquillo to provide emergency dialysis due to hyperkalemia. Ms. Gallardo has ESKD due to HTN. She dialyzes TTS at [facility]. Over the last 1-2 days she has experienced N&V, diarrhea. She has had poor oral intake and this morning was too weak to attend outpatient HD. Ms. Gallardo was brought by EMS to [facility] for evaluation. Initial laboratory studies revealed WBC 19K, Na 132, K 6.8, HCO3 24, BUN 56, Cr 12.4. T. Bili 0.4, LFT - wnl. Abdominal CT revealed moderate gallbladder distention. RUQ US has been ordered. COVID testing is negative. PMH: ESKD on IHD since 08/20, HTN, asthma, obesity, fungal esophagitis 02/20, h/o gastric ulcer and IBS Allergies Allergy/AdvReac Type Severity Reaction Status Date / Time pneumococcal 7-valent Allergy Swelling Verified 08/26/22 13:41 conjugate to of [From Prevnar] Lip/Tongue/Throat Home Medications Medication Instructions Recorded Confirmed Type calcium acetate(phosphat bind) 667 2,001 mg PO TIDM 09/30/18 11/23/22 History mg capsule famotidine 20 mg tablet 20 mg PO BID #20 tabs 12/05/18 11/23/22 Rx loperamide 2 mg capsule 2 mg PO Q4H PRN loose stool #60 05/26/19 11/23/22 Rx caps atorvastatin 10 mg tablet (Lipitor) 10 mg PO QPM #90 tabs 03/08/20 11/23/22 Rx cinacalcet 30 mg tablet 30 mg PO DAILY 08/02/20 11/23/22 History promethazine 25 mg tablet 25 mg PO Q6H PRN nausea and 09/27/20 11/23/22 Rx vomiting #30 tabs rizatriptan 10 mg disintegrating 10 mg PO Q2H PRN migraine headache 07/16/21 11/23/22 Rx tablet #12 tabs cyclobenzaprine 5 mg tablet 5 mg PO HS PRN muscle spasm #30 10/19/21 11/23/22 Rx tabs medroxyprogesterone 150 mg/mL 150 mg IM .q12wk #1 mL 03/08/22 11/23/22 Rx intramuscular suspension gabapentin 100 mg capsule 100 mg PO TID #90 caps 08/12/22 11/23/22 Rx amitriptyline 50 mg tablet 50 mg PO HS 30 days #30 tabs 08/23/22 11/23/22 Rx cefdinir 300 mg capsule 300 mg PO BID 10 days #20 caps 10/09/22 11/23/22 Rx cephalexin 250 mg capsule 250 mg PO BID 3 days #6 caps 10/28/22 11/23/22 Rx eluxadoline 100 mg tablet (Viberzi) 100 mg PO BID IBS-D #60 tabs 11/13/22 11/23/22 Rx amlodipine 5 mg tablet 5 mg PO DAILY 11/23/22 11/23/22 History labetalol 200 mg tablet 800 mg PO TID 11/23/22 11/23/22 History pantoprazole 40 mg tablet,delayed 40 mg PO BID 11/23/22 11/23/22 History release sumatriptan succinate 6 mg/0.5 mL 6 mg subcut .COMPLEX PRN Headache 11/23/22 11/23/22 History subcutaneous pen injector triamcinolone acetonide 0.1 % 1 applic topical BID 11/23/22 11/23/22 History topical ointment Patient History Medical History A-V fistula right arm Abnormal MRI Asthma Chronic back pain Chronic kidney disease (CKD), stage IV (severe) dialysis shi/misty--follows with Dr. Crawford Depression with anxiety End stage renal disease End-stage renal disease on hemodialysis GERD (gastroesophageal reflux disease) Heart murmur History of gastric ulcer Hypertension Low thyroid stimulating hormone (TSH) level LVH (left ventricular hypertrophy) Morbid obesity with BMI of 45.0-49.9, adult Nephrolithiasis Renal cyst Surgical History H/O tubal ligation History of abdominal surgery repair skin around scar History of abdominoplasty History of section x4 History of esophagogastroduodenoscopy (EGD) History of wisdom tooth extraction Family History Mother Family history of diabetes mellitus Sister Family history of diabetes mellitus x3 Aunt Heart disease Father Family history of kidney disease Other No family history of adverse response to anesthesia Denies family history of Pancreatic cancer Ovarian cancer Prostate cancer Myocardial infarction Breast cancer Colorectal cancer Uterine cancer Social History Smoking Status: Never smoker Second Hand Exposure: No; Hx Alcohol Use: No Hx Substance Use: No Preferred Language: Maltese Communication Ability: Effective Teacher'S Aide Required: No Beliefs That Will Affect Care: None marital status: Single Current Living Situation: Family Current Living Situation Comment: Lives with 2 kids Feels Safe at Home: Yes Dental Care, Regularly: Yes Seatbelt Use: always Sunscreen Use: Yes Assistive Devices: None Review of Systems Constitutional: no fever Eyes: no problem reported Ear, Nose, Mouth, Throat: no problem reported Respiratory: no dyspnea Cardiovascular: no chest pain Gastrointestinal: + nausea, + vomiting and + diarrhea/loose stools Physical Exam Constitutional: not in distress Eyes: PERRL, conjunctivae normal, anicteric sclerae ENMT: external ear and nose normal, oropharynx normal Neck: trachea midline, no thyromegaly Respiratory: normal respiratory effort, lungs clear to auscultation Cardiovascular: RRR, no murmur, no edema Extremities: + AV fistula (+ bruit) Gastrointestinal (Abdomen): Inspection/Auscultation: + hypoactive bowel sounds Percussion/Palpation: + abdomen tender (RUQ) and abdomen soft; no guarding Neurologic: awake Speech / Cognition: normal speech and normal cognition Results & Data Vital Signs (Past 12 Hours) Vital Signs Temp Pulse Pulse Resp BP BP Pulse Ox 11/23/22 11:02 11/23/22 11:04 90 19 99/64 L 96 11/23/22 10:36 36.8 C 91 H 20 93/62 L 100 O2 Del Method 11/23/22 11:02 Room Air 11/23/22 11:04 Room Air 11/23/22 10:36 Room Air Laboratory Results Laboratory Tests 11/23/22 11/23/22 11/23/22 11:00 11:00 11:00 WBC 19.12 H Hgb 9.4 L Hct 29.2 L Plt Count 278 Sodium 132 L Potassium 6.8 H* Chloride 86 L Carbon Dioxide 24 BUN 56 H Creatinine 12.39 H* Glucose 105 H Total Bilirubin 0.4 AST 27 ALT 23 Alkaline Phosphatase 73 Troponin I High Sens 29.0 H Albumin 4.0 SARS-CoV-2, RNA, NAAT NEGATIVE Diagnostic Findings 11/23/22 ECG: NSR, RP 198 ms, mildly peaked T-waves, QRS 86 ms 11/23/22 CXR: No infiltrate. No overt CHF 11/23/[address]: 1. Moderate gallbladder distention. No adjacent stranding. However, if right upper quadrant pain, ultrasound is recommended to evaluate for acute cholecystitis. 2. No bowel obstruction. Apparent colonic wall thickening is likely due to underdistention. Normal appendix. 3. Innumerable renal cysts. Renal atrophy. Bilateral nephrolithiasis. No ureteral calculi. No hydronephrosis PG Care Time/CCT Total # of Minutes Spent Total Time Spent with Patient: Total time spent is greater than 50% in coordination of care (as documented) at patient's floor/unit and/or counseling patient: Coding Level of Care Code 62490 IN/OBS CONSULT LVL 5,80M Diagnoses Acute hyperkalemia E87.5 ESRD (end stage renal disease) on dialysis N18.6; Z99.2 Diarrhea R19.7 Diarrhea type: presumed infectious (3) Diarrhea Diarrhea type: presumed infectious Qualified Code(s): R19.7 - Diarrhea, unspecified
[2022-11-23] MEDS ORDERED: CEFEPIME 1,000 MG in SYRINGE 0 ML IV STA (12:58)
--- NOTE | 2022-11-23 13:08 | History & Physical Report ---
Date of Service November 23, 2022 Assessment & Plan (1) Abdominal pain: Plan: Nausea/vomiting/diarrhea suspect cholecystitis CTA/P: Moderate gallbladder distention. No adjacent stranding. Cholecystitis not excluded. No bowel obstruction, and pole renal cysts Gallbladder ultrasound: Moderate gallbladder distention, no gallstones. No gallbladder wall thickening. A calculus cholecystitis cannot be excluded. Hepatomegaly with a 2.4 echogenic focus in left hepatic lobe noted, nonspecific and may be fat/hemangioma. May have routine nonemergent liver protocol MRI versus 3-6 months repeat ultrasound pending progression and stability Clinically at bedside patient is with right upper quadrant tenderness to palpation which worsens on inspiration consistent with Guaman's. Of note her pain also significantly worse is after attempted meals and then gradually improves when not eating. Given clinical exam consistent with cholecystitis and equivocal findings, will consult general surgery in order HIDA scan. Completing cardiac work-up and echo due to increased troponin below, although suspect that this is related to demand and ER is already patient has not had chest pain at any point, but does have exertional dyspnea. CXR: No acute findings. Cardiomegaly. Empiric coverage with cefepime given in ER. Flagyl added for anaerobic coverage with suspected cholecystitis. Cefepime dose adjusted to 1 g daily Leukocytosis 19.12 Sodium 132 Potassium 6.8 in the setting of missing dialysis, nephrology consulted and anticipate dialysis today Troponin 29, trended COVID-negative Patient is relatively euvolemic and dialysis dependent. Given this will defer additional fluids and boluses needed. N.p.o. with meds at this time. Hyperkalemia In the setting of ESRD with missed dialysis session EKG: Normal sinus rhythm, nonspecific T wave abnormality, QTc 428. Peaked T waves are present Insulin 10 units IV and dextrose ordered by nephrology, patient received sodium bicarb Calcium 1 g given Taken to dialysis shortly after H&P End-stage renal disease 2/2 hypertension On Friday dialysis 2 days with increasing nausea/vomiting/diarrhea and poor intake, has not been able to go to dialysis due to weakness suspected due to cholecystitis Hyperkalemic on admission requiring urgent dialysis Nephrology consulted Hypertension - Continue labetalol, amlodipine. Normotensive on admission, is not clinically volume overloaded on admission Elevated troponin - HS-trop 29 on admit. 2 hour pending - No chest pain - Echo 2018 with EF 55-60% Irritable bowel syndromediarrhea subtype Previously on for Baresel 100 mg twice daily Lumbar radiculopathy Follows with neurology Amitriptyline Gabapentin, Fall precautions Abnormal MRI, prior concern for demyelinative disease Chronic nonspecific white matter changes noted, following with neurology DVT prophylaxis: SCDs Diet: N.p.o. Disposition: PCU due to ESRD and hyperkalemia CODE STATUS: Full code (2) ESRD (end stage renal disease) on dialysis: (3) Acute hyperkalemia: (4) Dysuria: History of Present Illness Primary Care Provider: Jacques Zhang, III, MICHAELA Faina is a 41-year-old female with a past medical history of ESRD on dialysis, GERD, IBS, hypertension, lumbar radiculopathy, bilateral sciatica, 1-2 days of shortness of breath. She has had pain in RUQ in the front, back, and radiating downt he back. Endorses abdomianl pain, noticed it 5 days ago then 'got much less intense and not gone but OK, more like a UTI feeling' and then worsened especially over the last 2 days. Does still make urine, has had burning discomfort with urination in the last week which is not normal for her. No fevers, has had chills and night sweat Shortness of breath worsened with exertion more than normal. No chest pain with this. Can normally walk long distances No cough. No sputum production Both legs feel very weak. COuldn't walk to the bathroom to vomit this morning. Thrown up 3-4 times, no blood or bile. Clear-yellow in color. Decreased appetite last two days. +diarrhea +pain worsens with meals. As soon as she eats RUQ pain intensifies. - Dry weight 127.7 Current pain is compeltely different form sciatica Medical History: Reviewed Medications: Reviewed Surgical History: Reviewed Family history: Reviewed Allergies: Reviewed Social History: Reviewed Code Status: Surrogate DM would be Lin talbert). Full Code. [phone] Allergies Allergy/AdvReac Type Severity Reaction Status Date / Time pneumococcal 7-valent Allergy Swelling Verified 08/26/22 13:41 conjugate to of [From Prevnar] Lip/Tongue/Throat Home Medications Medication Instructions Recorded Confirmed Type calcium acetate(phosphat bind) 667 2,001 mg PO TIDM 09/30/18 11/23/22 History mg capsule famotidine 20 mg tablet 20 mg PO BID #20 tabs 12/05/18 11/23/22 Rx loperamide 2 mg capsule 2 mg PO Q4H PRN loose stool #60 05/26/19 11/23/22 Rx caps atorvastatin 10 mg tablet (Lipitor) 10 mg PO QPM #90 tabs 03/08/20 11/23/22 Rx cinacalcet 30 mg tablet 30 mg PO DAILY 08/02/20 11/23/22 History promethazine 25 mg tablet 25 mg PO Q6H PRN nausea and 09/27/20 11/23/22 Rx vomiting #30 tabs rizatriptan 10 mg disintegrating 10 mg PO Q2H PRN migraine headache 07/16/21 11/23/22 Rx tablet #12 tabs cyclobenzaprine 5 mg tablet 5 mg PO HS PRN muscle spasm #30 10/19/21 11/23/22 Rx tabs medroxyprogesterone 150 mg/mL 150 mg IM .q12wk #1 mL 03/08/22 11/23/22 Rx intramuscular suspension gabapentin 100 mg capsule 100 mg PO TID #90 caps 08/12/22 11/23/22 Rx amitriptyline 50 mg tablet 50 mg PO HS 30 days #30 tabs 08/23/22 11/23/22 Rx cefdinir 300 mg capsule 300 mg PO BID 10 days #20 caps 10/09/22 11/23/22 Rx cephalexin 250 mg capsule 250 mg PO BID 3 days #6 caps 10/28/22 11/23/22 Rx eluxadoline 100 mg tablet (Viberzi) 100 mg PO BID IBS-D #60 tabs 11/13/22 11/23/22 Rx amlodipine 5 mg tablet 5 mg PO DAILY 11/23/22 11/23/22 History labetalol 200 mg tablet 800 mg PO TID 11/23/22 11/23/22 History pantoprazole 40 mg tablet,delayed 40 mg PO BID 11/23/22 11/23/22 History release sumatriptan succinate 6 mg/0.5 mL 6 mg subcut .COMPLEX PRN Headache 11/23/22 11/23/22 History subcutaneous pen injector triamcinolone acetonide 0.1 % 1 applic topical BID 11/23/22 11/23/22 History topical ointment Past Med/Surg History Medical History A-V fistula right arm Abnormal MRI Asthma Chronic back pain Chronic kidney disease (CKD), stage IV (severe) dialysis shi/misty--follows with Dr. Crawford Depression with anxiety End stage renal disease End-stage renal disease on hemodialysis GERD (gastroesophageal reflux disease) Heart murmur History of gastric ulcer Hypertension Low thyroid stimulating hormone (TSH) level LVH (left ventricular hypertrophy) Morbid obesity with BMI of 45.0-49.9, adult Nephrolithiasis Renal cyst Surgical History H/O tubal ligation History of abdominal surgery repair skin around scar History of abdominoplasty History of section x4 History of esophagogastroduodenoscopy (EGD) History of wisdom tooth extraction Family History Mother Family history of diabetes mellitus Sister Family history of diabetes mellitus x3 Aunt Heart disease Father Family history of kidney disease Other No family history of adverse response to anesthesia Denies family history of Pancreatic cancer Ovarian cancer Prostate cancer Myocardial infarction Breast cancer Colorectal cancer Uterine cancer Social History Smoking Status: Never smoker Second Hand Exposure: No; Hx Alcohol Use: No Hx Substance Use: No Preferred Language: Arabic Communication Ability: Effective Counselor Camp Required: No Beliefs That Will Affect Care: None marital status: Single Current Living Situation: Family Current Living Situation Comment: Lives with 2 kids Feels Safe at Home: Yes Dental Care, Regularly: Yes Seatbelt Use: always Sunscreen Use: Yes Assistive Devices: None Review of Systems Review of Systems: All systems reviewed & are unremarkable except as noted in Subjective Physical Exam Physical Exam: General: A&Ox3. NAD. Cooperative. HEENT: Atraumatic, normocephalic. Vision/hearing grossly intact Pulm: CTAB A&P. -wheezes, -rales, -rhonchi. Symmetrical chest rise. No increase in work of breathing. No respiratory distress. Cardiac: RRR, -mrg. Radial pulses intact and symmetrical. Abdominal: Right upper quadrant prominently tender to palpation with positive Guaman's. No guarding/rebound tenderness. BS diminished Extremities: Trace edema of the ankles. Sensation of soft touch is intact in hands and feet, provider relations consultant strength, elbow flexion, ankle dorsiflexion/plantarflexion is 5/5 bilaterally. No asymmetry. Cap refill brisk. Right AV fistula with goo d thrill. Results & Data Results & Data Vital Signs (Past 12 Hours) Vital Signs Temp Pulse Pulse Resp BP BP Pulse Ox 11/23/22 13:01 37.1 C 99 H 21 128/88 100 11/23/22 11:02 11/23/22 11:04 90 19 99/64 L 96 11/23/22 10:36 36.8 C 91 H 20 93/62 L 100 O2 Del Method 11/23/22 13:01 Room Air 11/23/22 11:02 Room Air 11/23/22 11:04 Room Air 11/23/22 10:36 Room Air PG Care Time/CCT Total # of Minutes Spent Total Time Spent with Patient: Total time spent is greater than 50% in coordination of care (as documented) at patient's floor/unit and/or counseling patient: Coding Level of Care Code 78127 INT INP/OBS CARE 3/75MIN Diagnoses Abdominal pain R10.84 Abdominal location: generalized ESRD (end stage renal disease) on dialysis N18.6; Z99.2 Acute hyperkalemia E87.5 Dysuria R30.0 (1) Abdominal pain Abdominal location: generalized Qualified Code(s): R10.84 - Generalized abdominal pain
[2022-11-23 13:24] LABS: Basophils # (auto) 0.06 K/uL (0-0.2); Basophils % (auto) 0.3 %; Eosinophils # (auto) 0.41 K/uL (0-0.50); Eosinophils % (auto) 2.1 %; Immature Granulocytes # (auto) 0.16 K/uL (0.01-0.20); Immature Granulocytes % (auto) 0.8 %; Lymphocytes # (auto) 0.61 K/uL (1.2-3.4); Lymphocytes % (auto) 3.2 %; Monocytes # (auto) 0.54 K/uL (0.11-0.59); Monocytes % (auto) 2.8 %; Neutrophils # (auto) 17.34 K/uL (1.40-6.50); Neutrophils % (auto) 90.8 %; RBC Morphology Unremarkable
[2022-11-23] MEDS ORDERED: EPOETIN ALFA 10,000 UNITS/ML VIAL IV ONE (14:00)
[2022-11-23] MEDS ORDERED: HEPARIN SOD (PORCINE) 1000 UNIT/ML IV SCH (14:00)
[2022-11-23] MEDS ORDERED: LOPERAMIDE HCL 2 MG CAP PO PRN (17:49)
[2022-11-23] MEDS ORDERED: ACETAMINOPHEN 1,000 MG/100 ML VIAL IV PRN (17:49)
[2022-11-23] MEDS ORDERED: CYCLOBENZAPRINE HCL 5 MG TAB PO PRN (17:49)
[2022-11-23] MEDS ORDERED: HYDROmorphone INJ 0.5 MG/0.5 ML SYR IV PRN (17:49)
[2022-11-23] MEDS: HYDROmorphone INJ 0.5 MG/0.5 ML SYR IV PRN (18:12)
[2022-11-23] MEDS: metroNIDAZOLE 500 MG/100 ML BAG IV SCH (18:50)
--- NOTE | 2022-11-23 19:40 | Surgery Consultation ---
Date of Consultation November 23, 2022 Assessment & Plan (1) Abdominal pain: pt is a 41 year-old female who was admitted to hospital for RUQ pain, IMP : RUQ pain, no indication for acute cholecystitis on U/S and CT scan, pt will have HIDA scan to R/O cholecystitis, please send U/A to R/O UTI, pt had bilateral kidney stone, may kidney stone caused pain, please consult GI doctor to R/O gastric ulcer, conservative treatment now, iv antibiotic, zosyn 3.375gm iv q8h , repeat lab sin morning, will F/U, pt agreed with the plan, I answered all questions, History of Present Illness Reason for Consultation: cholecystitis Requesting Physician: Jordan Morrison MD Attending Physician: Jordan Morrison MD History of Present Illness CC: RUQ pain HPI: Faina is a 41-year-old female with a past medical history of ESRD on dialysis, GERD, IBS, hypertension, lumbar radiculopathy, bilateral sciatica, 1-2 days of shortness of breath. She has had pain in RUQ in the front, back, and radiating down to he back. Endorses abdominal pain, noticed it 5 days ago then 'got much less intense and not gone but OK, more like a UTI feeling' and then worsened especially over the last 2 days. Does still make urine, has had burning discomfort with urination in the last week which is not normal for her. No fevers, has had chills and night sweat Shortness of breath worsened with exertion more than normal. No chest pain with this. Can normally walk long distances No cough. No sputum production Both legs feel very weak. couldn't walk to the bathroom to vomit this morning. Thrown up 3-4 times, no blood or bile. Clear-yellow in color. Decreased appetite last two days. +diarrhea +pain worsens with meals. As soon as she eats RUQ pain intensifies. - Dry weight 127.7 Current pain is completely different form sciatica I ( Jie ryan MD ) got a call for consult RUQ pain , possible cholecystitis, I reviewed pt's H/P, labs and CT scan and U/S study with pt, pt is still have RUQ pain, pt just had dialysis done. Medical History: Reviewed Medications: Reviewed Surgical History: Reviewed Family history: Reviewed Allergies: Reviewed Social History: Reviewed Code Status: Surrogate DM would be Lin Valentine ([facility]). Full Code. [phone] Allergies Allergy/AdvReac Type Severity Reaction Status Date / Time pneumococcal 7-valent Allergy Swelling Verified 08/26/22 13:41 conjugate to B of [From Prevnar] Lip/Tongue/Throat Home Medications Medication Instructions Recorded Confirmed Type calcium acetate(phosphat bind) 667 2,001 mg PO TIDM 09/30/18 11/23/22 History mg capsule famotidine 20 mg tablet 20 mg PO BID #20 tabs 12/05/18 11/23/22 Rx loperamide 2 mg capsule 2 mg PO Q4H PRN loose stool #60 05/26/19 11/23/22 Rx caps atorvastatin 10 mg tablet (Lipitor) 10 mg PO QPM #90 tabs 03/08/20 11/23/22 Rx cinacalcet 30 mg tablet 30 mg PO DAILY 08/02/20 11/23/22 History promethazine 25 mg tablet 25 mg PO Q6H PRN nausea and 09/27/20 11/23/22 Rx vomiting #30 tabs rizatriptan 10 mg disintegrating 10 mg PO Q2H PRN migraine headache 07/16/21 11/23/22 Rx tablet #12 tabs cyclobenzaprine 5 mg tablet 5 mg PO HS PRN muscle spasm #30 10/19/21 11/23/22 Rx tabs medroxyprogesterone 150 mg/mL 150 mg IM .q12wk #1 mL 03/08/22 11/23/22 Rx intramuscular suspension gabapentin 100 mg capsule 100 mg PO TID #90 caps 08/12/22 11/23/22 Rx amitriptyline 50 mg tablet 50 mg PO HS 30 days #30 tabs 08/23/22 11/23/22 Rx cefdinir 300 mg capsule 300 mg PO BID 10 days #20 caps 10/09/22 11/23/22 Rx cephalexin 250 mg capsule 250 mg PO BID 3 days #6 caps 10/28/22 11/23/22 Rx eluxadoline 100 mg tablet (Viberzi) 100 mg PO BID IBS-D #60 tabs 11/13/22 11/23/22 Rx amlodipine 5 mg tablet 5 mg PO DAILY 11/23/22 11/23/22 History labetalol 200 mg tablet 800 mg PO TID 11/23/22 11/23/22 History pantoprazole 40 mg tablet,delayed 40 mg PO BID 11/23/22 11/23/22 History release sumatriptan succinate 6 mg/0.5 mL 6 mg subcut .COMPLEX PRN Headache 11/23/22 11/23/22 History subcutaneous pen injector triamcinolone acetonide 0.1 % 1 applic topical BID 11/23/22 11/23/22 History topical ointment Past Med/Surg History Medical History A-V fistula right armAbnormal MRI Asthma Chronic back pain Chronic kidney disease (CKD), stage IV (severe) dialysis shi/misty--follows with Dr. Rush with anxiety End stage renal disease End-stage renal disease on hemodialysis GERD (gastroesophageal reflux disease) Heart murmur History of gastric ulcer Hypertension Low thyroid stimulating hormone (TSH) level LVH (left ventricular hypertrophy) Morbid obesity with BMI of 45.0-49.9, adult Nephrolithiasis Renal cyst Surgical History H/O tubal ligation History of abdominal surgery repair skin around scarHistory of abdominoplasty History of section d6Ixvehnl of esophagogastroduodenoscopy (EGD) History of wisdom tooth extraction Family History Mother Family history of diabetes mellitusSister Family history of diabetes mellitus x3Aunt Heart diseaseFather Family history of kidney diseaseOther No family history of adverse response to anesthesia Denies family history of Pancreatic cancer Ovarian cancer Prostate cancer Myocardial infarction Breast cancer Colorectal cancer Uterine cancer Social History Smoking Status: Never smoker Second Hand Exposure: No; Hx Alcohol Use: No Hx Substance Use: No Preferred Language: Cuban Communication Ability: Effective [employer] Required: No Beliefs That Will Affect Care: None marital status: Single Current Living Situation: Family Current Living Situation Comment: Lives with 2 kids Feels Safe at Home: Yes Dental Care, Regularly: Yes Seatbelt Use: always Sunscreen Use: Yes Assistive Devices: None Review of Systems Review of Systems: All systems reviewed & are unremarkable except as noted in Subjective Allergies Allergy/AdvReac Type Severity Reaction Status Date / Time pneumococcal 7-valent Allergy Swelling Verified 08/26/22 13:41 conjugate to of [From Prevnar] Lip/Tongue/Throat Home Medications Medication Instructions Recorded Confirmed Type calcium acetate(phosphat bind) 667 2,001 mg PO TIDM 09/30/18 11/23/22 History mg capsule famotidine 20 mg tablet 20 mg PO BID #20 tabs 12/05/18 11/23/22 Rx loperamide 2 mg capsule 2 mg PO Q4H PRN loose stool #60 05/26/19 11/23/22 Rx caps atorvastatin 10 mg tablet (Lipitor) 10 mg PO QPM #90 tabs 03/08/20 11/23/22 Rx cinacalcet 30 mg tablet 30 mg PO DAILY 08/02/20 11/23/22 History promethazine 25 mg tablet 25 mg PO Q6H PRN nausea and 09/27/20 11/23/22 Rx vomiting #30 tabs rizatriptan 10 mg disintegrating 10 mg PO Q2H PRN migraine headache 07/16/21 11/23/22 Rx tablet #12 tabs cyclobenzaprine 5 mg tablet 5 mg PO HS PRN muscle spasm #30 10/19/21 11/23/22 Rx tabs medroxyprogesterone 150 mg/mL 150 mg IM .q12wk #1 mL 03/08/22 11/23/22 Rx intramuscular suspension gabapentin 100 mg capsule 100 mg PO TID #90 caps 08/12/22 11/23/22 Rx amitriptyline 50 mg tablet 50 mg PO HS 30 days #30 tabs 08/23/22 11/23/22 Rx cefdinir 300 mg capsule 300 mg PO BID 10 days #20 caps 10/09/22 11/23/22 Rx cephalexin 250 mg capsule 250 mg PO BID 3 days #6 caps 10/28/22 11/23/22 Rx eluxadoline 100 mg tablet (Viberzi) 100 mg PO BID IBS-D #60 tabs 11/13/22 11/23/22 Rx amlodipine 5 mg tablet 5 mg PO DAILY 11/23/22 11/23/22 History labetalol 200 mg tablet 800 mg PO TID 11/23/22 11/23/22 History pantoprazole 40 mg tablet,delayed 40 mg PO BID 11/23/22 11/23/22 History release sumatriptan succinate 6 mg/0.5 mL 6 mg subcut .COMPLEX PRN Headache 11/23/22 11/23/22 History subcutaneous pen injector triamcinolone acetonide 0.1 % 1 applic topical BID 11/23/22 11/23/22 History topical ointment Patient History Medical History A-V fistula right arm Abnormal MRI Asthma Chronic back pain Chronic kidney disease (CKD), stage IV (severe) dialysis shi/misty--follows with Dr. Crawford Depression with anxiety End stage renal disease End-stage renal disease on hemodialysis GERD (gastroesophageal reflux disease) Heart murmur History of gastric ulcer Hypertension Low thyroid stimulating hormone (TSH) level LVH (left ventricular hypertrophy) Morbid obesity with BMI of 45.0-49.9, adult Nephrolithiasis Renal cyst Surgical History H/O tubal ligation History of abdominal surgery repair skin around scar History of abdominoplasty History of section x4 History of esophagogastroduodenoscopy (EGD) History of wisdom tooth extraction Family History Mother Family history of diabetes mellitus Sister Family history of diabetes mellitus x3 Aunt Heart disease Father Family history of kidney disease Other No family history of adverse response to anesthesia Denies family history of Pancreatic cancer Ovarian cancer Prostate cancer Myocardial infarction Breast cancer Colorectal cancer Uterine cancer Social History Smoking Status: Never smoker Second Hand Exposure: No; Hx Alcohol Use: No Hx Substance Use: No Preferred Language: Cuban Communication Ability: Effective [employer] Required: No Beliefs That Will Affect Care: None marital status: Single Current Living Situation: Family Current Living Situation Comment: Lives with 2 kids Feels Safe at Home: Yes Safety Concerns: Feels Safe At This Time Dental Care, Regularly: Yes Seatbelt Use: always Sunscreen Use: Yes Assistive Devices: None Physical Exam Constitutional: WD/WN, vitals as above no distress Eyes: PERRL, conjunctivae normal, anicteric sclerae Neck: trachea midline, no thyromegaly Respiratory: normal respiratory effort, lungs clear to auscultation Cardiovascular: RRR, no murmur, no edema Gastrointestinal (Abdomen): mild tenderness, no rebound pain, no distend, BS +, Musculoskeletal: no cyanosis or clubbing, extremities motor strength 5/5 Neurologic: patellar DTR's 2+ bilat, sensation intact Psychiatric: A+Ox3, euthymic affect Results & Data Vital Signs (Past 12 Hours) Vital Signs Temp Pulse Pulse Pulse Resp BP BP 11/23/22 17:45 37.0 C 84 138/88 11/23/22 17:30 74 93/62 L 11/23/22 17:52 36.6 C 110 H 20 121/83 11/23/22 17:00 74 93/62 L 11/23/22 16:30 103 H 107/68 11/23/22 16:00 100 H 118/73 11/23/22 15:30 89 115/69 11/23/22 15:00 94 H 122/75 11/23/22 14:30 95 H 89/55 L 11/23/22 14:00 95 H 100/64 11/23/22 13:43 36.9 C 96 H 11/23/22 13:11 98 H 11/23/22 13:01 37.1 C 99 H 21 128/88 11/23/22 11:02 11/23/22 11:04 90 19 99/64 L 11/23/22 10:36 36.8 C 91 H 20 93/62 L Pulse Ox O2 Del Method 11/23/22 17:45 11/23/22 17:30 11/23/22 17:52 99 Room Air 11/23/22 17:00 11/23/22 16:30 11/23/22 16:00 11/23/22 15:30 11/23/22 15:00 11/23/22 14:30 11/23/22 14:00 11/23/22 13:43 11/23/22 13:11 11/23/22 13:01 100 Room Air 11/23/22 11:02 Room Air 11/23/22 11:04 96 Room Air 11/23/22 10:36 100 Room Air Laboratory Results Abnormal lab results 11/23/22 11/23/22 Range/Units 11:00 11:00 WBC 19.12 H (4.8-10.8) K/ul RBC 2.93 L (4.20-5.40) M/uL Hgb 9.4 L (12.0-16.0) g/dl Hct 29.2 L (37.0-47.0) % RDW Std Deviation 58.6 H (36.4-46.3) fL RDW Coeff of Hosea 16.6 H (11.5-14.5) % Neut # (Auto) 17.34 H (1.40-6.50) K/uL Lymph # (Auto) 0.61 L (1.2-3.4) K/uL Sodium 132 L (136-145) mmol/L Potassium 6.8 H* (3.5-5.1) mmol/L Chloride 86 L (98-107) mmol/L Anion Gap 22 H (3-11) BUN 56 H (6-23) mg/dl Creatinine 12.39 H* (0.6-1.2) mg/dl BUN/Creatinine Ratio 4.5 L (10-20) Glucose 105 H (70-99(Fasting)) mg/dl Troponin I High Sens 29.0 H (0-14) pg/ml Diagnostic Findings US gallbladder CLINICAL HISTORY: Abdominal, gallbladder distension COMPARISON STUDY: CT of the abdomen and pelvis performed earlier today. Right upper quadrant ultrasound August 13, 2017. FINDINGS: The liver is enlarged, measuring 22 cm in maximal dimension. There is a 2.4 cm echogenic focus within the left hepatic lobe. There is no biliary ductal dilatation. Common bile duct measures 4 mm in caliber. The gallbladder is moderately distended. There is no gallbladder wall thickening. No gallstones are identified. Sonographic Guaman sign could not be assessed for in this patient due to pain medication administration. The pancreas is obscured. The right kidney is atrophic and contains multiple cysts. IMPRESSION: 1. Moderate gallbladder distention. No gallstones. No gallbladder wall thickening. Unable to assess for sonographic Guaman sign. Acalculus cholecystitis is considered unlikely but would be difficult to exclude. This could be correlated with clinical evidence for acute cholecystitis and a hepatobiliary scan as indicated. 2. No biliary ductal dilatation. 3. Hepatomegaly. 2.4 cm echogenic focus within the left hepatic lobe. This is nonspecific although may reflect focal fat or a hemangioma. Nonemergent liver protocol MRI could be obtained for further evaluation. Alternatively, short-term follow-up ultrasound in 3-6 months could be obtained to ensure stability. ACT 112: Negative or not required by law. CT OF THE ABDOMEN AND PELVIS WITHOUT CONTRAST CLINICAL HISTORY: Mid abdominal pain. Nausea, vomiting and diarrhea. COMPARISON STUDY: CT of the abdomen and pelvis November 10, 2021 and renal ultrasound May 08, 2022. TECHNIQUE: Axial images of the abdomen and pelvis were obtained without IV contrast. Images were reviewed in the axial, sagittal, and coronal planes. Automated exposure control was utilized for the study. A dose lowering technique was utilized adhering to the principles of ALARA. FINDINGS: Lung bases are unremarkable. Cardiomegaly is noted. No pneumatosis, free air or portal venous gas is present. The gallbladder is moderately distended. There is no adjacent stranding. There is no biliary or pancreatic ductal dilatation. Evaluation of the abdomen and pelvis is suboptimal on this unenhanced exam. Spleen, adrenal glands and pancreas are unremarkable. The kidneys are replaced by innumerable cysts. A 3.8 cm lesion within the upper pole of the left kidney measures above water attenuation but was shown to represent a cyst on renal ultrasound April 08, 2022. Bilateral renal calculi measure up to 8 mm. There is no hydronephrosis. There are no ureteral calculi. Both kidneys are atrophic. There is no evidence for a bowel obstruction. The appendix is normal. Apparent colonic wall thickening is likely due to underdistention. There is no ascites. There is no lymphadenopathy. There are no acute fractures. Evidence for bilateral sacroiliitis, unchanged. IMPRESSION: 1. Moderate gallbladder distention. No adjacent stranding. However, if right upper quadrant pain, ultrasound is recommended to evaluate for acute cholecy stitis. 2. No bowel obstruction. Apparent colonic wall thickening is likely due to underdistention. Normal appendix. 3. Innumerable renal cysts. Renal atrophy. Bilateral nephrolithiasis. No ureteral calculi. No hydronephrosis. ACT 112: Negative or not required by law. (1) Abdominal pain Abdominal location: generalized Qualified Code(s): R10.84 - Generalized abdominal pain
[2022-11-23 20:05] LABS: BUN Creatinine Ratio 3.7 (10-20); Calcium 9.4 mg/dl (8.5-10.1); Creatinine Clr Calc Pharmacy 16.5 ml/min; Est GFR (African American) 9.3 ml/min; Potassium 4.6 mmol/L (3.5-5.1)
[2022-11-23] MEDS: PANTOprazole 40 MG TAB PO SCH (21:20)
[2022-11-23] MEDS: AMITRIPTYLINE HCL 50 MG TAB PO SCH (21:20)
[2022-11-23] MEDS: GABAPENTIN 100 MG CAP PO SCH ×2 (21:20→21:34)
[2022-11-23] MEDS: ATORVASTATIN 10 MG TAB PO SCH (21:20)
[2022-11-23] MEDS: FAMOTIDINE 20 MG TAB PO SCH (21:20)
[2022-11-23] MEDS: LABETALOL HCL 200 MG TAB PO SCH ×2 (21:21→21:34)
[2022-11-23] MEDS: CALCIUM ACETATE 667 MG CAP/TAB PO SCH (21:22)
[2022-11-24] MEDS: metroNIDAZOLE 500 MG/100 ML BAG IV SCH ×4 (00:21→23:57)
[2022-11-24] MEDS: HYDROmorphone INJ 0.5 MG/0.5 ML SYR IV PRN ×2 (00:21→09:09)
[2022-11-24 04:43] LABS: Basophils # (auto) 0.06 K/uL (0-0.2); Basophils % (auto) 0.4 %; Eosinophils # (auto) 0.69 K/uL (0-0.50); Eosinophils % (auto) 4.6 %; Hematocrit (blood only) 27.6 % (37.0-47.0); Hemoglobin 8.7 g/dl (12.0-16.0); Immature Granulocytes # (auto) 0.08 K/uL (0.01-0.20); Immature Granulocytes % (auto) 0.5 %; Lymphocytes # (auto) 0.77 K/uL (1.2-3.4); Lymphocytes % (auto) 5.1 %; Mean Corpuscular Hemoglobin 31.5 pg (25.0-34.0); Mean Corpuscular Hgb Conc 31.5 g/dL (32.0-36.0); Mean Platelet Volume 9.8 fL (9.4-12.4); Monocytes # (auto) 0.85 K/uL (0.11-0.59); Monocytes % (auto) 5.7 %; Neutrophils # (auto) 12.51 K/uL (1.40-6.50); Neutrophils % (auto) 83.7 %; Platelet Count 241 K/uL (130-400); RDW Coefficient of Variation 16.7 % (11.5-14.5); Red Blood Count 2.76 M/uL (4.20-5.40); White Blood Count 14.96 K/ul (4.8-10.8)
[2022-11-24 05:07] LABS: Albumin Globulin Ratio 1.1 (0.9-2); Albumin Level 3.6 gm/dl (3.4-5.0); BUN Creatinine Ratio 3.7 (10-20); Bilirubin,Total 0.5 mg/dl (0.2-1.0); Calcium 9.5 mg/dl (8.5-10.1); Creatinine Clr Calc Pharmacy 14.1 ml/min; Est GFR (African American) 7.6 ml/min; Est GFR (Non-African American) 6.6 ml/min; Globulin 3.4 gm/dl (2.5-4.0); Potassium 4.9 mmol/L (3.5-5.1)
--- NOTE | 2022-11-24 07:36 | Electrocardiogram Report ---
Test Reason : Blood Pressure : / mmHG Vent. Rate : 090 BPM Atrial Rate : 090 BPM P-R Int : 198 ms QRS Dur : 086 ms QT Int : 350 ms P-R-T Axes : -15 -30 034 degrees QTc Int : 428 ms Normal sinus rhythm Left axis deviation Low voltage QRS Inferior infarct (cited on or before 24-JAN-2014) Anterolateral infarct (cited on or before 24-JAN-2014) Abnormal ECG When compared with ECG of 02-FEB-2021 14:39, Nonspecific T wave abnormality now evident in Inferior leads Nonspecific T wave abnormality now evident in Lateral leads Confirmed by Jacoby Barraza ([id number]) on 11/24/2022 7:35:55 AM Referred By: REFERRED SELF Confirmed By:Luke Barraza
[2022-11-24] MEDS: FAMOTIDINE 20 MG TAB PO SCH ×2 (08:44→20:49)
[2022-11-24] MEDS: amLODIPine BESYLATE 5 MG TAB PO SCH (08:44)
[2022-11-24] MEDS: PANTOprazole 40 MG TAB PO SCH ×2 (08:45→20:49)
[2022-11-24] MEDS: GABAPENTIN 100 MG CAP PO SCH ×3 (08:45→20:48)
[2022-11-24] MEDS: LABETALOL HCL 200 MG TAB PO SCH ×3 (08:45→20:49)
[2022-11-24] MEDS: CINACALCET HCL 30 MG TAB PO SCH (08:46)
[2022-11-24] MEDS: CALCIUM ACETATE 667 MG CAP/TAB PO SCH ×3 (08:46→16:54)
--- NOTE | 2022-11-24 09:40 | Nephrology Progress Note ---
Date of Service November 24, 2022 Assessment & Plan (1) Acute hyperkalemia: Plan: * Corrected with HD yesterday * Monitor PRP (2) ESRD (end stage renal disease) on dialysis: Plan: * Outpatient HD Rx: ROSAMARIAC Christel TTS 3K 2.5Ca F-180NR Qb 430/Qd A1.5 EDW 127kg * R RC AVF created [address] Sherman * Removed from transplant list due to BMI > 35 (3) Diarrhea: Plan: * RUQ US - possible acalculous cholecystitis * HIDA scan has been ordered * Lipase 11 * Consider testing for enterovirus, C. Difficile (4) Leukocytosis: Plan: * Will order cath urine sample for urinalysis w/ reflex culture (5) Elevated troponin: Plan: * Troponin trending up * 11/23/22 Echocardiogram: LVEF >70%, no focal WMA Admission and Anticipated Discharge Date Admission Date: November 23, 2022 Subjective Ms. Gallardo was evaluated in her hospital room this morning. Diarrhea and emesis are subjectively improved but RUQ discomfort persists. She reports no UO overnight. There were no complications w/ HD yesterday. 500 cc UF obtained Review of Systems Constitutional: no fever Eyes: no problem reported Ear, Nose, Mouth, Throat: no problem reported Respiratory: no dyspnea Cardiovascular: no chest pain Gastrointestinal: + nausea, + vomiting and + diarrhea/loose stools Physical Exam Constitutional: not in distress Eyes: PERRL, conjunctivae normal, anicteric sclerae ENMT: external ear and nose normal, oropharynx normal Neck: trachea midline, no thyromegaly Respiratory: normal respiratory effort, lungs clear to auscultation Cardiovascular: RRR, no murmur, no edema Extremities: + AV fistula (+ bruit) Gastrointestinal (Abdomen): Inspection/Auscultation: + hypoactive bowel sounds Percussion/Palpation: + abdomen tender (RUQ) and abdomen soft; no guarding Neurologic: awake Speech / Cognition: normal speech and normal cognition Results & Data Vital Signs (Past 12 Hours) Vital Signs Temp Pulse Pulse Pulse Resp BP Pulse Ox 11/24/22 08:00 99 H 11/24/22 08:28 11/24/22 06:52 36.6 C 90 16 97/70 L 94 11/24/22 03:00 37.3 C 98 H 18 106/67 95 11/24/22 00:00 106 H 11/23/22 23:00 37.1 C 108 H 22 108/68 91 O2 Del Method 11/24/22 08:00 11/24/22 08:28 Room Air 11/24/22 06:52 Room Air 11/24/22 03:00 Room Air 11/24/22 00:00 11/23/22 23:00 Room Air Laboratory Results Laboratory Tests 11/23/22 11/23/22 11/23/22 11:00 19:19 22:25 WBC 19.12 H Hgb Hct Plt Count Sodium Potassium Chloride Carbon Dioxide BUN Creatinine Glucose Calcium Troponin I High Sens 29.7 H 29.4 H Albumin 11/24/22 11/24/22 11/24/22 04:07 04:07 04:07 WBC 14.96 H Hgb 8.7 L Hct 27.6 L Plt Count 241 Sodium 136 Potassium 4.9 Chloride 97 L Carbon Dioxide 25 BUN 26 H Creatinine 7.04 H* D Glucose 101 H Calcium 9.5 Troponin I High Sens 45.0 H D Albumin 3.6 Diagnostic Findings 11/23/22 ECG:NSR, RP 198 ms, mildly peaked T-waves, QRS 86 ms 11/23/22 CXR: No infiltrate. No overt CHF 11/23/[address]: 1. Moderate gallbladder distention. No adjacent stranding. However, if right upper quadrant pain, ultrasound is recommended to evaluate for acute cholecystitis. 2. No bowel obstruction. Apparent colonic wall thickening is likely due to underdistention. Normal appendix. 3. Innumerable renal cysts. Renal atrophy. Bilateral nephrolithiasis. No ureteral calculi. No hydronephrosis 11/23/22 RUQ US: 1. Moderate gallbladder distention. No gallstones. No gallbladder wall thickening. Unable to assess for sonographic Guaman sign. Acalculus cholecystitis is considered unlikely but would be difficult to exclude. This could be correlated with clinical evidence for acute cholecystitis and a hepatobiliary scan as indicated. 2. No biliary ductal dilatation. 3. Hepatomegaly. 2.4 cm echogenic focus within the left hepatic lobe. This is nonspecific although may reflect focal fat or a hemangioma. Nonemergent liver protocol MRI could be obtained for further evaluation. Alternatively, short-term follow-up ultrasound in 3-6 months could be obtained to ensure stability. Care Time/CCT Total # of Minutes Spent Total Time Spent with Patient: Total time spent is greater than 50% in coordination of care (as documented) at patient's floor/unit and/or counseling patient: Coding Level of Care Code 77159 SUB INP/OBS CARE 3/50MIN Diagnoses Acute hyperkalemia E87.5 ESRD (end stage renal disease) on dialysis N18.6; Z99.2 Diarrhea R19.7 Diarrhea type: presumed infectious Leukocytosis D72.829 Elevated troponin R77.8 (3) Diarrhea Diarrhea type: presumed infectious Qualified Code(s): R19.7 - Diarrhea, unspecified
--- NOTE | 2022-11-24 10:24 | XCELERA ---
[id number]
--- NOTE | 2022-11-24 11:13 | Hospitalist Progress Note ---
Date of Service November 24, 2022 Assessment & Plan (1) Abdominal pain: Plan: Patient presented with nausea/vomiting/diarrhea/right upper quadrant pain. Suspect cholecystitis CTA/P: Moderate gallbladder distention. No adjacent stranding. Cholecystitis not excluded. No bowel obstruction, and pole renal cysts Gallbladder ultrasound: Moderate gallbladder distention, no gallstones. No gallbladder wall thickening. A calculus cholecystitis cannot be excluded. Hepatomegaly with a 2.4 echogenic focus in left hepatic lobe noted, nonspecific and may be fat/hemangioma. May have routine nonemergent liver protocol MRI versus 3-6 months repeat ultrasound pending progression and stability Clinically at bedside patient is with right upper quadrant tenderness to palpation which worsens on inspiration consistent with Guaman's. Of note her pain also significantly worse is after attempted meals and then gradually improves when not eating. Given clinical exam consistent with cholecystitis and equivocal findings, surgery was consulted. HIDA scan was ordered. HIDA scan cannot be completed on a weekend. Will lay down tomorrow. General surgery recommended getting GI involved for possibility of peptic ulcer disease. Surgery recommended IV antibiotics. The patient is now on cefepime and Flagyl. GI consulted Urine analysis and culture ordered. Uncollected. Patient has ESRD and probably does not make as much urine. WBC count down from 19,000-14,000 today Patient complaining of feeling hungry but noted that she has used IV Dilaudid 3 times overnight. We will keep her n.p.o. until not needing IV Dilaudid Added oxy IR p.o. (2) ESRD (end stage renal disease) on dialysis: Plan: Secondary to hypertension On Friday dialysis 2 days with increasing nausea/vomiting/diarrhea and poor intake, has not been able to go to dialysis due to weakness suspected due to cholecystitis Hyperkalemic on admission requiring urgent dialysis Nephrology on board Potassium down to 4.9 after dialysis (3) Acute hyperkalemia: Plan: In the setting of ESRD with missed dialysis session EKG: Normal sinus rhythm, nonspecific T wave abnormality, QTc 428. Peaked T waves are present Insulin 10 units IV and dextrose ordered by nephrology, patient received sodium bicarb Calcium 1 g given Potassium down to 4.9 today after urgent dialysis (4) Dysuria: Plan: Noted that urinalysis and urine culture has been ordered Remains uncollected Patient most likely does not produce as much urine as she has ESRD. (5) Elevated troponin: Plan: - HS-trop 29 on admit. 2 hour pending - No chest pain - Echo 2018 with EF 55-60% (6) Hypertension: Plan: - Continue labetalol, amlodipine with holding parameters (7) IBS (irritable bowel syndrome): Plan: Previously on for Baresel 100 mg twice daily (8) Lumbar radiculopathy: Plan: Follows with neurology Amitriptyline Gabapentin, Fall precautions Plan Abnormal MRI, prior concern for demyelinative disease Chronic nonspecific white matter changes noted, following with neurology DVT prophylaxis: SCDs Diet: N.p.o. CODE STATUS: Full code Admission and Anticipated Discharge Date Admission Date: November 23, 2022 Subjective Patient denies any chest pain or shortness of breath. Complains of feeling hungry but noted that she has used IV Dilaudid 3 times overnight. Review of Systems Review of Systems: All systems reviewed & are unremarkable except as noted in Subjective Physical Exam Physical Exam: General: Awake, conversant Heart: S1, S2/regular rate and rhythm, no murmur rubs or gallops Lungs: Clear to auscultation bilaterally. Normal effort Abdomen: Soft/nondistended. Mild tenderness to palpation in the epigastric region and right upper quadrant area. No rebound, rigidity or guarding. Obese abdomen. No hepatosplenomegaly Extremities: No clubbing/cyanosis. No edema Behavior: Appropriate, cooperative Results & Data Results & Data Vital Signs (Past 12 Hours) Vital Signs Temp Pulse Pulse Pulse Resp BP Pulse Ox 11/24/22 08:00 99 H 11/24/22 08:28 11/24/22 06:52 36.6 C 90 16 97/70 L 94 11/24/22 03:00 37.3 C 98 H 18 106/67 95 11/24/22 00:00 106 H O2 Del Method 11/24/22 08:00 11/24/22 08:28 Room Air 11/24/22 06:52 Room Air 11/24/22 03:00 Room Air 11/24/22 00:00 Laboratory Results Abnormal lab results 11/23/22 11/23/22 11/23/22 Range/Units 11:00 11:00 19:13 WBC 19.12 H (4.8-10.8) K/ul RBC 2.93 L (4.20-5.40) M/uL Hgb 9.4 L (12.0-16.0) g/dl Hct 29.2 L (37.0-47.0) % MCHC (32.0-36.0) g/dL RDW Std Deviation 58.6 H (36.4-46.3) fL RDW Coeff of Hosea 16.6 H (11.5-14.5) % Neut # (Auto) 17.34 H (1.40-6.50) K/uL Lymph # (Auto) 0.61 L (1.2-3.4) K/uL Harney # (Auto) (0.11-0.59) K/uL Eos # (Auto) (0-0.50) K/uL Sodium 132 L (136-145) mmol/L Potassium 6.8 H* (3.5-5.1) mmol/L Chloride 86 L (98-107) mmol/L Anion Gap 22 H 13 H (3-11) BUN 56 H (6-23) mg/dl Creatinine 12.39 H* 5.96 H* D (0.6-1.2) mg/dl BUN/Creatinine Ratio 4.5 L 3.7 L (10-20) Glucose 105 H 100 H (70-99(Fasting)) mg/dl Troponin I High Sens 29.0 H (0-14) pg/ml 11/23/22 11/23/22 11/24/22 Range/Units 19:19 22:25 04:07 WBC (4.8-10.8) K/ul RBC (4.20-5.40) M/uL Hgb (12.0-16.0) g/dl Hct (37.0-47.0) % MCHC (32.0-36.0) g/dL RDW Std Deviation (36.4-46.3) fL RDW Coeff of Hosea (11.5-14.5) % Neut # (Auto) (1.40-6.50) K/uL Lymph # (Auto) (1.2-3.4) K/uL Harney # (Auto) (0.11-0.59) K/uL Eos # (Auto) (0-0.50) K/uL Sodium (136-145) mmol/L Potassium (3.5-5.1) mmol/L Chloride (98-107) mmol/L Anion Gap (3-11) BUN (6-23) mg/dl Creatinine (0.6-1.2) mg/dl BUN/Creatinine Ratio (10-20) Glucose (70-99(Fasting)) mg/dl Troponin I High Sens 29.7 H 29.4 H 45.0 H D (0-14) pg/ml 11/24/22 11/24/22 11/24/22 Range/Units 04:07 04:07 09:40 WBC 14.96 H (4.8-10.8) K/ul RBC 2.76 L (4.20-5.40) M/uL Hgb 8.7 L (12.0-16.0) g/dl Hct 27.6 L (37.0-47.0) % MCHC 31.5 L (32.0-36.0) g/dL RDW Std Deviation 60.0 H (36.4-46.3) fL RDW Coeff of Hosea 16.7 H (11.5-14.5) % Neut # (Auto) 12.51 H (1.40-6.50) K/uL Lymph # (Auto) 0.77 L (1.2-3.4) K/uL Harney # (Auto) 0.85 H (0.11-0.59) K/uL Eos # (Auto) 0.69 H (0-0.50) K/uL Sodium (136-145) mmol/L Potassium (3.5-5.1) mmol/L Chloride 97 L (98-107) mmol/L Anion Gap 14 H (3-11) BUN 26 H (6-23) mg/dl Creatinine 7.04 H* D (0.6-1.2) mg/dl BUN/Creatinine Ratio 3.7 L (10-20) Glucose 101 H (70-99(Fasting)) mg/dl Troponin I High Sens 35.1 H (0-14) pg/ml PG Care Time/CCT Total # of Minutes Spent Total Time Spent: 35 Total Time Spent with Patient: I spent 35 minutes in the care of this patient. The time was spent in talking to the patient, nurse, care management team, reviewing the chart, formulating plan and placing the orders accordingly. Coding Level of Care Code 41398 SUB INP/OBS CARE 2MIN Diagnoses Abdominal pain R10.84 Abdominal location: generalized ESRD (end stage renal disease) on dialysis N18.6; Z99.2 Acute hyperkalemia E87.5 Dysuria R30.0 Elevated troponin R77.8 Hypertension I10 IBS (irritable bowel syndrome) K58.9 Lumbar radiculopathy M54.16 (1) Abdominal pain Abdominal location: generalized Qualified Code(s): R10.84 - Generalized abdominal pain
--- NOTE | 2022-11-24 12:10 | Surgery Progress Note ---
Date of Service November 24, 2022 Assessment & Plan (1) Abdominal pain: Plan: pt is a 41 year-old female who was admitted to hospital for RUQ pain, IMP : RUQ pain, no indication for acute cholecystitis on U/S and CT scan, pt will have HIDA scan to R/O cholecystitis, please send U/A to R/O UTI, pt had bilateral kidney stone, may kidney stone caused pain, please consult GI doctor to R/O gastric ulcer, conservative treatment now, iv antibiotic, zosyn 3.375gm iv q8h , repeat lab sin morning, will F/U, pt agreed with the plan, I answered all questions, 11/24/2022 12:09 PM F/U RUQ pain, stable, HIDA scan tomorrow, clear diet today, repeat labs in morning, will F/U, Admission and Anticipated Discharge Date Admission Date: November 23, 2022 Subjective Patient denies any chest pain or shortness of breath. Complains of feeling hungry but noted that she has used IV Dilaudid 3 times overnight. 11/24/2022 12:07PM Dr. Titus F/U RUQ pain, pt said she still have some RUQ pain, no nausea, no vomiting, no fever, Physical Exam Constitutional: WD/WN, vitals as above Eyes: PERRL, conjunctivae normal, anicteric sclerae Neck: trachea midline, no thyromegaly Respiratory: normal respiratory effort, lungs clear to auscultation Cardiovascular: RRR, no murmur, no edema Gastrointestinal (Abdomen): soft, mild tenderness at RUQ , no rebound pain, no distend, BS +, Musculoskeletal: no cyanosis or clubbing, extremities motor strength 5/5 Neurologic: patellar DTR's 2+ bilat, sensation intact Psychiatric: A+Ox3, euthymic affect Results & Data Vital Signs (Past 12 Hours) Vital Signs Temp Pulse Pulse Pulse Resp BP Pulse Ox 11/24/22 11:37 36.9 C 88 16 93/57 L 96 11/24/22 08:00 99 H 11/24/22 08:28 11/24/22 06:52 36.6 C 90 16 97/70 L 94 11/24/22 03:00 37.3 C 98 H 18 106/67 95 O2 Del Method 11/24/22 11:37 Room Air 11/24/22 08:00 11/24/22 08:28 Room Air 11/24/22 06:52 Room Air 11/24/22 03:00 Room Air Laboratory Results Abnormal lab results 11/23/22 11/23/22 11/23/22 Range/Units 11:00 11:00 19:13 WBC (4.8-10.8) K/ul RBC (4.20-5.40) M/uL Hgb (12.0-16.0) g/dl Hct (37.0-47.0) % MCHC (32.0-36.0) g/dL RDW Std Deviation (36.4-46.3) fL RDW Coeff of Hosea (11.5-14.5) % Neut # (Auto) 17.34 H (1.40-6.50) K/uL Lymph # (Auto) 0.61 L (1.2-3.4) K/uL Meade # (Auto) (0.11-0.59) K/uL Eos # (Auto) (0-0.50) K/uL Sodium 132 L (136-145) mmol/L Potassium 6.8 H* (3.5-5.1) mmol/L Chloride 86 L (98-107) mmol/L Anion Gap 22 H 13 H (3-11) BUN 56 H (6-23) mg/dl Creatinine 12.39 H* 5.96 H* D (0.6-1.2) mg/dl BUN/Creatinine Ratio 4.5 L 3.7 L (10-20) Glucose 105 H 100 H (70-99(Fasting)) mg/dl Troponin I High Sens 29.0 H (0-14) pg/ml 11/23/22 11/23/22 11/24/22 Range/Units 19:19 22:25 04:07 WBC (4.8-10.8) K/ul RBC (4.20-5.40) M/uL Hgb (12.0-16.0) g/dl Hct (37.0-47.0) % MCHC (32.0-36.0) g/dL RDW Std Deviation (36.4-46.3) fL RDW Coeff of Hosea (11.5-14.5) % Neut # (Auto) (1.40-6.50) K/uL Lymph # (Auto) (1.2-3.4) K/uL Meade # (Auto) (0.11-0.59) K/uL Eos # (Auto) (0-0.50) K/uL Sodium (136-145) mmol/L Potassium (3.5-5.1) mmol/L Chloride (98-107) mmol/L Anion Gap (3-11) BUN (6-23) mg/dl Creatinine (0.6-1.2) mg/dl BUN/Creatinine Ratio (10-20) Glucose (70-99(Fasting)) mg/dl Troponin I High Sens 29.7 H 29.4 H 45.0 H D (0-14) pg/ml 11/24/22 11/24/22 11/24/22 Range/Units 04:07 04:07 09:40 WBC 14.96 H (4.8-10.8) K/ul RBC 2.76 L (4.20-5.40) M/uL Hgb 8.7 L (12.0-16.0) g/dl Hct 27.6 L (37.0-47.0) % MCHC 31.5 L (32.0-36.0) g/dL RDW Std Deviation 60.0 H (36.4-46.3) fL RDW Coeff of Hosea 16.7 H (11.5-14.5) % Neut # (Auto) 12.51 H (1.40-6.50) K/uL Lymph # (Auto) 0.77 L (1.2-3.4) K/uL Meade # (Auto) 0.85 H (0.11-0.59) K/uL Eos # (Auto) 0.69 H (0-0.50) K/uL Sodium (136-145) mmol/L Potassium (3.5-5.1) mmol/L Chloride 97 L (98-107) mmol/L Anion Gap 14 H (3-11) BUN 26 H (6-23) mg/dl Creatinine 7.04 H* D (0.6-1.2) mg/dl BUN/Creatinine Ratio 3.7 L (10-20) Glucose 101 H (70-99(Fasting)) mg/dl Troponin I High Sens 35.1 H (0-14) pg/ml (1) Abdominal pain Abdominal location: generalized Qualified Code(s): R10.84 - Generalized abdominal pain
--- NOTE | 2022-11-24 12:34 | Gastrointestinal Consultation ---
Date of Consultation November 24, 2022 Assessment & Plan (1) IBS (irritable bowel syndrome): (2) Abdominal pain: Plan RUQ abdominal pains ddx includes severe gastritis, PUD, acalculous cholecystitis. Recs: --obtain HIDA scan --continue protonix 40 mg BID --may need EGD (inpt vs outpt) if HIDA negative --supportive care, diet as tolerated Thank you for allowing me to participate in the care of this patient. History of Present Illness Attending Physician: Justina Valerio MD History of Present Illness 41-year-old female with a past medical history of ESRD on dialysis, GERD, IBS, hypertension, lumbar radiculopathy, bilateral sciatica known to me who presented with RUQ pains for few days. Pains radiated to her back, have become more intense prior to arriving to hospital. US couldn't rule out acalculous cholecystitis, normal LFTs, CT without any significant findings. She notes bowel movemets are regular on viberzi BID but has had some constipation. CBC, CMP reviewed. Allergies Allergy/AdvReac Type Severity Reaction Status Date / Time pneumococcal 7-valent Allergy Swelling Verified 08/26/22 13:41 conjugate to of [From Prevnar] Lip/Tongue/Throat Home Medications Medication Instructions Recorded Confirmed Type calcium acetate(phosphat bind) 667 2,001 mg PO TIDM 09/30/18 11/23/22 History mg capsule famotidine 20 mg tablet 20 mg PO BID #20 tabs 12/05/18 11/23/22 Rx loperamide 2 mg capsule 2 mg PO Q4H PRN loose stool #60 05/26/19 11/23/22 Rx caps atorvastatin 10 mg tablet (Lipitor) 10 mg PO QPM #90 tabs 03/08/20 11/23/22 Rx cinacalcet 30 mg tablet 30 mg PO DAILY 08/02/20 11/23/22 History promethazine 25 mg tablet 25 mg PO Q6H PRN nausea and 09/27/20 11/23/22 Rx vomiting #30 tabs rizatriptan 10 mg disintegrating 10 mg PO Q2H PRN migraine headache 07/16/21 Rx tablet #12 tabs cyclobenzaprine 5 mg tablet 5 mg PO HS PRN muscle spasm #30 10/19/21 11/23/22 Rx tabs medroxyprogesterone 150 mg/mL 150 mg IM .q12wk #1 mL 03/08/22 11/23/22 Rx intramuscular suspension gabapentin 100 mg capsule 100 mg PO TID #90 caps 08/12/22 11/23/22 Rx amitriptyline 50 mg tablet 50 mg PO HS 30 days #30 tabs 08/23/22 11/23/22 Rx cefdinir 300 mg capsule 300 mg PO BID 10 days #20 caps 10/09/22 11/23/22 Rx cephalexin 250 mg capsule 250 mg PO BID 3 days #6 caps 10/28/22 11/23/22 Rx eluxadoline 100 mg tablet (Viberzi) 100 mg PO BID IBS-D #60 tabs 11/13/22 11/23/22 Rx amlodipine 5 mg tablet 5 mg PO DAILY 11/23/22 11/23/22 History labetalol 200 mg tablet 800 mg PO TID 11/23/22 11/23/22 History pantoprazole 40 mg tablet,delayed 40 mg PO BID 11/23/22 11/23/22 History release sumatriptan succinate 6 mg/0.5 mL 6 mg subcut .COMPLEX PRN Headache 11/23/22 11/23/22 History subcutaneous pen injector triamcinolone acetonide 0.1 % 1 applic topical BID 11/23/22 11/23/22 History topical ointment Patient History Medical History A-V fistula right arm Abnormal MRI Asthma Chronic back pain Chronic kidney disease (CKD), stage IV (severe) dialysis shi/misty--follows with Dr. Crawford Depression with anxiety End stage renal disease End-stage renal disease on hemodialysis GERD (gastroesophageal reflux disease) Heart murmur History of gastric ulcer Hypertension Low thyroid stimulating hormone (TSH) level LVH (left ventricular hypertrophy) Morbid obesity with BMI of 45.0-49.9, adult Nephrolithiasis Renal cyst Surgical History H/O tubal ligation History of abdominal surgery repair skin around scar History of abdominoplasty History of section x4 History of esophagogastroduodenoscopy (EGD) History of wisdom tooth extraction Family History Mother Family history of diabetes mellitus Sister Family history of diabetes mellitus x3 Aunt Heart disease Father Family history of kidney disease Other No family history of adverse response to anesthesia Denies family history of Pancreatic cancer Ovarian cancer Prostate cancer Myocardial infarction Breast cancer Colorectal cancer Uterine cancer Social History Smoking Status: Never smoker Second Hand Exposure: No; Hx Alcohol Use: No Hx Substance Use: No Preferred Language: Citizen Of [place] Communication Ability: Effective Resource Manager Required: No Beliefs That Will Affect Care: None marital status: Single Current Living Situation: Family Current Living Situation Comment: Lives with 2 kids Feels Safe at Home: Yes Safety Concerns: Feels Safe At This Time Dental Care, Regularly: Yes Seatbelt Use: always Sunscreen Use: Yes Assistive Devices: None Review of Systems Constitutional: no fever, no chills and no weight loss Eyes: as per Subjective / HPI Ear, Nose, Mouth, Throat: as per Subjective / HPI Respiratory: no dyspnea and no dyspnea on exertion Cardiovascular: no chest pain and no palpitations Gastrointestinal: as per Subjective / HPI Musculoskeletal: no joint pain and no swelling Integumentary: no rash and no lesions Neurologic: no numbness and no paresthesia Psychiatric: no depression and no anxiety Endocrine: no fatigue Hematologic / Lymphatic: no easy bleeding and no easy bruising Physical Exam Constitutional: WD/WN, vitals as above Eyes: EOM intact bilaterally Neck: normal visual inspection Respiratory: normal respiratory effort, lungs clear to auscultation Cardiovascular: RRR, no murmur, no edema Gastrointestinal (Abdomen): Inspection/Auscultation: abdomen normal to inspection; abdomen not distended Percussion/Palpation: abdomen soft; abdomen nontender and no hepatosplenomegaly Musculoskeletal: Extremities: no cyanosis Gait: normal gait Skin: no rashes, warm and dry Neurologic: moves all extremities Psychiatric: A+Ox3, euthymic affect Results & Data Vital Signs (Past 12 Hours) Vital Signs Temp Pulse Pulse Pulse Resp BP Pulse Ox 11/24/22 11:37 36.9 C 88 16 93/57 L 96 11/24/22 08:00 99 H 11/24/22 08:28 11/24/22 06:52 36.6 C 90 16 97/70 L 94 11/24/22 03:00 37.3 C 98 H 18 106/67 95 O2 Del Method 11/24/22 11:37 Room Air 11/24/22 08:00 11/24/22 08:28 Room Air 11/24/22 06:52 Room Air 11/24/22 03:00 Room Air PG Care Time/CCT Total # of Minutes Spent Total Time Spent with Patient: Total time spent is greater than 50% in coordination of care (as documented) at patient's floor/unit and/or counseling patient: Coding Level of Care Code 16749 IN/OBS CONSULT LVL 4,60M Diagnoses IBS (irritable bowel syndrome) K58.9 Abdominal pain R10.84 Abdominal location: generalized (2) Abdominal pain Abdominal location: generalized Qualified Code(s): R10.84 - Generalized abdominal pain
[2022-11-24] MEDS: oxyCODONE HCL IR 5 MG TAB (IMMEDIATE RELEASE) PO PRN (14:52)
[2022-11-24] MEDS: CEFEPIME 1,000 MG in SYRINGE 0 ML IV SCH (16:20)
[2022-11-24] MEDS: ATORVASTATIN 10 MG TAB PO SCH (20:48)
[2022-11-24] MEDS: AMITRIPTYLINE HCL 50 MG TAB PO SCH (20:49)
[2022-11-25] MEDS: oxyCODONE HCL IR 5 MG TAB (IMMEDIATE RELEASE) PO PRN ×2 (04:45→14:06)
[2022-11-25 07:04] LABS: Hematocrit (blood only) 24.6 % (37.0-47.0); Hemoglobin 7.9 g/dl (12.0-16.0); Mean Corpuscular Hemoglobin 31.6 pg (25.0-34.0); Mean Corpuscular Hgb Conc 32.1 g/dL (32.0-36.0); Mean Corpuscular Volume 98.4 fL (80.0-100.0); Mean Platelet Volume 9.6 fL (9.4-12.4); Nucleated RBC # (auto) 0.02 K/uL (0-0.12); Nucleated RBC % (auto) 0.2 %; Platelet Count 222 K/uL (130-400); RDW Standard Deviation 57.1 fL (36.4-46.3); White Blood Count 13.02 K/ul (4.8-10.8)
[2022-11-25 07:28] LABS: BUN Creatinine Ratio 3.6 (10-20); Calcium 8.7 mg/dl (8.5-10.1); Creatinine Clr Calc Pharmacy 10.1 ml/min; Est GFR (Non-African American) 4.3 ml/min; Potassium 4.3 mmol/L (3.5-5.1)
--- NOTE | 2022-11-25 08:43 | Nephrology Progress Note ---
Date of Service November 25, 2022 Assessment & Plan (1) ESRD (end stage renal disease) on dialysis: Plan: * Outpatient HD Rx: C Christel TTS 3K 2.5Ca F-180NR Qb 430/Qd A1.5 EDW 127kg * R RC AVF created [address] Sherman * Removed from transplant list due to BMI > 35 (2) Diarrhea: Plan: * RUQ US - possible acalculous cholecystitis * HIDA scan to be completed this am * Lipase 11 * Consider testing for enterovirus, C. Difficile (3) Anemia: Plan: * Hgb trending down * Patient reports melena. Consider GI evaluation if Hgb drops further * Will recheck H&H in am * Will provide MARIO w/ HD tomorrow (4) Leukocytosis: Plan: * 11/24/22 urine culture with skin cathryn only (5) Elevated troponin: Plan: * Troponin trending up * 11/23/22 Echocardiogram: LVEF >70%, no focal WMA Admission and Anticipated Discharge Date Admission Date: November 23, 2022 Subjective Ms. Gallardo was evaluated in her hospital room this morning. She continues to have nausea and diarrhea. Ms. Gallardo reports small amount of melena overnight. She is awaiting HIDA scan this am Review of Systems Constitutional: no fever Eyes: no problem reported Ear, Nose, Mouth, Throat: no problem reported Respiratory: no dyspnea Cardiovascular: no chest pain Gastrointestinal: + nausea, + vomiting and + diarrhea/loose stools Physical Exam Constitutional: not in distress Eyes: PERRL, conjunctivae normal, anicteric sclerae ENMT: external ear and nose normal, oropharynx normal Neck: trachea midline, no thyromegaly Respiratory: normal respiratory effort, lungs clear to auscultation Cardiovascular: RRR, no murmur, no edema Extremities: + AV fistula (+ bruit) Gastrointestinal (Abdomen): Inspection/Auscultation: + hypoactive bowel sounds Percussion/Palpation: + abdomen tender (RUQ) and abdomen soft; no guarding Neurologic: awake Speech / Cognition: normal speech and normal cognition Results & Data Vital Signs (Past 12 Hours) Vital Signs Temp Pulse Pulse Pulse Resp BP Pulse Ox 11/25/22 07:43 37.0 C 89 20 128/83 97 11/25/22 03:00 37.0 C 91 H 23 109/68 96 11/24/22 23:34 90 11/24/22 23:23 37.1 C 89 18 92/56 L 100 O2 Del Method 11/25/22 07:43 Room Air 11/25/22 03:00 Room Air 11/24/22 23:34 11/24/22 23:23 Room Air Laboratory Results Laboratory Tests 11/25/22 11/25/22 06:39 06:39 WBC 13.02 H Hgb 7.9 L Hct 24.6 L Plt Count 222 Sodium 136 Potassium 4.3 Chloride 98 Carbon Dioxide 25 BUN 36 H Creatinine 9.92 H* D Glucose 84 PG Care Time/CCT Total # of Minutes Spent Total Time Spent with Patient: Total time spent is greater than 50% in coordination of care (as documented) at patient's floor/unit and/or counseling patient: Coding Level of Care Code 87618 SUB INP/OBS CARE 3/50MIN Diagnoses ESRD (end stage renal disease) on dialysis N18.6; Z99.2 Diarrhea R19.7 Diarrhea type: presumed infectious Anemia D64.9 Leukocytosis D72.829 Elevated troponin R77.8 (2) Diarrhea Diarrhea type: presumed infectious Qualified Code(s): R19.7 - Diarrhea, unspecified
[2022-11-25] MEDS: CALCIUM ACETATE 667 MG CAP/TAB PO SCH ×3 (09:03→17:45)
[2022-11-25] MEDS: FAMOTIDINE 20 MG TAB PO SCH ×2 (09:04→21:05)
[2022-11-25] MEDS: metroNIDAZOLE 500 MG/100 ML BAG IV SCH ×2 (09:04→17:45)
[2022-11-25] MEDS: amLODIPine BESYLATE 5 MG TAB PO SCH (09:04)
[2022-11-25] MEDS: PANTOprazole 40 MG TAB PO SCH ×2 (09:04→21:06)
[2022-11-25] MEDS: CINACALCET HCL 30 MG TAB PO SCH (09:04)
[2022-11-25] MEDS: GABAPENTIN 100 MG CAP PO SCH ×3 (09:04→21:05)
[2022-11-25] MEDS: LABETALOL HCL 200 MG TAB PO SCH ×3 (09:05→21:04)
--- NOTE | 2022-11-25 10:37 | Gastroenterology Progress Note ---
Date of Service November 25, 2022 Assessment & Plan (1) Abdominal pain: Plan -NPO for now. -Await HIDA and surgery input. -Continue Pantoprazole 40 mg BID. -If HIDA negative, will consider EGD given history of PUD. -Continue supportive care. Admission and Anticipated Discharge Date Admission Date: November 23, 2022 Supervising Physician Co-Signing Physician Notes Agree with MICHAELA Chacon as above HIDA Scan negative for Acute Iveth Gen: Obese, cooperative, NAD Abd: Soft, Tender RUQ, distended, +BS Continue current therapy and supportive care NPO after midnight for EGD in the AM Subjective Patient reports ongoing RUQ pain, localized and rated 8/10 at present. +Nausea without vomiting. Surgery has ordered a HIDA today which is pending for 1100. No f/c or overt GIB sx despite slight drop in H&H to 7.9/24.6 today. Continues Pantoprazole 40 mg BID. Review of Systems Constitutional: as per Subjective / HPI Gastrointestinal: as per Subjective / HPI Physical Exam Constitutional: WD/WN, vitals as above Respiratory: normal respiratory effort, lungs clear to auscultation Cardiovascular: RRR, no murmur, no edema Gastrointestinal (Abdomen): Inspection/Auscultation: normal bowel sounds and + significant pannus Percussion/Palpation: + abdomen tender (RUQ) and abdomen soft Psychiatric: A+Ox3, euthymic affect Results & Data Results & Data Vital Signs (Past 12 Hours) Vital Signs Temp Pulse Pulse Pulse Resp BP Pulse Ox 11/25/22 08:00 88 11/25/22 07:43 37.0 C 89 20 128/83 97 11/25/22 03:00 37.0 C 91 H 23 109/68 96 11/24/22 23:34 90 11/24/22 23:23 37.1 C 89 18 92/56 L 100 O2 Del Method 11/25/22 08:00 11/25/22 07:43 Room Air 11/25/22 03:00 Room Air 11/24/22 23:34 11/24/22 23:23 Room Air Diagnostic Findings Laboratory Results WBC 13.02 K/ul (4.8-10.8) H 11/25/22 06:39 RBC 2.50 M/uL (4.20-5.40) L 11/25/22 06:39 Hgb 7.9 g/dl (12.0-16.0) L 11/25/22 06:39 Hct 24.6 % (37.0-47.0) L 11/25/22 06:39 MCV 98.4 fL (80.0-100.0) 11/25/22 06:39 MCH 31.6 pg (25.0-34.0) 11/25/22 06:39 MCHC 32.1 g/dL (32.0-36.0) 11/25/22 06:39 RDW Std Deviation 57.1 fL (36.4-46.3) H 11/25/22 06:39 RDW Coeff of Hosea 16.0 % (11.5-14.5) H 11/25/22 06:39 Plt Count 222 K/uL (130-400) 11/25/22 06:39 MPV 9.6 fL (9.4-12.4) 11/25/22 06:39 Immature Gran % (Auto) 0.5 % 11/24/22 04:07 Neut % (Auto) 83.7 % 11/24/22 04:07 Lymph % (Auto) 5.1 % 11/24/22 04:07 Mclean % (Auto) 5.7 % 11/24/22 04:07 Eos % (Auto) 4.6 % 11/24/22 04:07 Baso % (Auto) 0.4 % 11/24/22 04:07 Neut # (Auto) 12.51 K/uL (1.40-6.50) H 11/24/22 04:07 Lymph # (Auto) 0.77 K/uL (1.2-3.4) L 11/24/22 04:07 Mclean # (Auto) 0.85 K/uL (0.11-0.59) H 11/24/22 04:07 Eos # (Auto) 0.69 K/uL (0-0.50) H 11/24/22 04:07 Baso # (Auto) 0.06 K/uL (0-0.2) 11/24/22 04:07 Immature Gran # (Auto) 0.08 K/uL (0.01-0.20) 11/24/22 04:07 Absolute Nucleated RBC 0.02 K/uL (0-0.12) 11/25/22 06:39 Nucleated RBC % (auto) 0.2 % 11/25/22 06:39 RBC Morphology Unremarkable 11/23/22 11:00 Sodium 136 mmol/L (136-145) 11/25/22 06:39 Potassium 4.3 mmol/L (3.5-5.1) 11/25/22 06:39 Chloride 98 mmol/L (98-107) 11/25/22 06:39 Carbon Dioxide 25 mmol/L (21-32) 11/25/22 06:39 Anion Gap 13 (3-11) H 11/25/22 06:39 BUN 36 mg/dl (6-23) H 11/25/22 06:39 Creatinine 9.92 mg/dl (0.6-1.2) H* D 11/25/22 06:39 Est Cr Clr Drug Dosing 10.1 ml/min 11/25/22 06:39 Est GFR ( Amer) 5.0 ml/min 11/25/22 06:39 Est GFR (Non-Af Amer) 4.3 ml/min 11/25/22 06:39 BUN/Creatinine Ratio 3.6 (10-20) L 11/25/22 06:39 Glucose 84 mg/dl (70-99(Fasting)) 11/25/22 06:39 Calcium 8.7 mg/dl (8.5-10.1) 11/25/22 06:39 Magnesium 1.7 mg/dl (1.7-2.4) 11/23/22 11:00 Total Bilirubin 0.5 mg/dl (0.2-1.0) 11/24/22 04:07 AST 31 U/L (13-39) 11/24/22 04:07 ALT 29 U/L (7-52) 11/24/22 04:07 Alkaline Phosphatase 79 U/L (34-104) 11/24/22 04:07 Troponin I High Sens 35.1 pg/ml (0-14) H 11/24/22 09:40 Total Protein 7.0 gm/dl (6.0-8.3) 11/24/22 04:07 Albumin 3.6 gm/dl (3.4-5.0) 11/24/22 04:07 Globulin 3.4 gm/dl (2.5-4.0) 11/24/22 04:07 Albumin/Globulin Ratio 1.1 (0.9-2) 11/24/22 04:07 Lipase 11 U/L (11-82) 11/23/22 11:00 HCG, Qual Negative (Negative) 11/23/22 11:00 Nasal Screen MRSA (PCR) Negative (Negative) 11/23/22 18:30 SARS-CoV-2, RNA, NAAT NEGATIVE (NEGATIVE) 11/23/22 11:00 Impressions Abdomen/Pelvis CT 11/23/22 10:41 CT OF THE ABDOMEN AND PELVIS WITHOUT CONTRAST CLINICAL HISTORY: Mid abdominal pain. Nausea, vomiting and diarrhea. COMPARISON STUDY: CT of the abdomen and pelvis November 10, 2021 and renal ultrasound May 08, 2022. TECHNIQUE: Axial images of the abdomen and pelvis were obtained without IV contrast. Images were reviewed in the axial, sagittal, and coronal planes. Automated exposure control was utilized for the study. A dose lowering technique was utilized adhering to the principles of ALARA. FINDINGS: Lung bases are unremarkable. Cardiomegaly is noted. No pneumatosis, free air or portal venous gas is present. The gallbladder is moderately distended. There is no adjacent stranding. There is no biliary or pancreatic ductal dilatation. Evaluation of the abdomen and pelvis is suboptimal on this unenhanced exam. Spleen, adrenal glands and pancreas are unremarkable. The kidneys are replaced by innumerable cysts. A 3.8 cm lesion within the upper pole of the left kidney measures above water attenuation but was shown to represent a cyst on renal ultrasound April 08, 2022. Bilateral renal calculi measure up to 8 mm. There is no hydronephrosis. There are no ureteral calculi. Both kidneys are atrophic. There is no evidence for a bowel obstruction. The appendix is normal. Apparent colonic wall thickening is likely due to underdistention. There is no ascites. There is no lymphadenopathy. There are no acute fractures. Evidence for bilateral sacroiliitis, unchanged. IMPRESSION: 1. Moderate gallbladder distention. No adjacent stranding. However, if right upper quadrant pain, ultrasound is recommended to evaluate for acute cholecystitis. 2. No bowel obstruction. Apparent colonic wall thickening is likely due to underdistention. Normal appendix. 3. Innumerable renal cysts. Renal atrophy. Bilateral nephrolithiasis. No ureteral calculi. No hydronephrosis. ACT 112: Negative or not required by law. Electronically signed by: Jose Alberto Addison M.D. 11/23/2022 11:40 AM Chest X-Ray 11/23/22 10:41 XR chest 1V portable CLINICAL HISTORY: n/v, sob, abd pain COMPARISON STUDY: Chest radiograph August 02, 2020. FINDINGS: Lung volumes are normal. Lungs are clear. There is no pneumothorax or pleural effusion. Cardiomegaly is unchanged. Mediastinal contours are normal. There is no evidence for pulmonary edema. IMPRESSION: No acute cardiopulmonary findings. Cardiomegaly. No change in appearance of the chest. ACT 112: Negative or not required by law. Electronically signed by: Jose Alberto Addison M.D. 11/23/2022 10:53 AM Gallbladder Ultrasound 11/23/22 11:48 US gallbladder CLINICAL HISTORY: Abdominal, gallbladder distension COMPARISON STUDY: CT of the abdomen and pelvis performed earlier today. Right upper quadrant ultrasound August 13, 2017. FINDINGS: The liver is enlarged, measuring 22 cm in maximal dimension. There is a 2.4 cm echogenic focus within the left hepatic lobe. There is no biliary ductal dilatation. Common bile duct measures 4 mm in caliber. The gallbladder is moderately distended. There is no gallbladder wall thickening. No gallstones are identified. Sonographic Guaman sign could not be assessed for in this patient due to pain medication administration. The pancreas is obscured. The right kidney is atrophic and contains multiple cysts. IMPRESSION: 1. Moderate gallbladder distention. No gallstones. No gallbladder wall thickening. Unable to assess for sonographic Guaman sign. Acalculus cholecystitis is considered unlikely but would be difficult to exclude. This could be correlated with clinical evidence for acute cholecystitis and a hepatobiliary scan as indicated. 2. No biliary ductal dilatation. 3. Hepatomegaly. 2.4 cm echogenic focus within the left hepatic lobe. This is nonspecific although may reflect focal fat or a hemangioma. Nonemergent liver protocol MRI could be obtained for further evaluation. Alternatively, short-term follow-up ultrasound in 3-6 months could be obtained to ensure stability. ACT 112: Negative or not required by law. Electronically signed by: Jose Alberto Addison M.D. 11/23/2022 12:50 PM PG Care Time/CCT Total # of Minutes Spent Total Time Spent with Patient: Total time spent is greater than 50% in coordination of care (as documented) at patient's floor/unit and/or counseling patient: Coding Level of Care Code 90409 SUB INP/OBS CARE 3/50MIN Diagnoses Abdominal pain R10.84 Abdominal location: generalized (1) Abdominal pain Abdominal location: generalized Qualified Code(s): R10.84 - Generalized abdominal pain
--- NOTE | 2022-11-25 11:10 | Hospitalist Progress Note ---
Date of Service November 25, 2022 Assessment & Plan (1) Abdominal pain: Plan: Patient presented with nausea/vomiting/diarrhea/right upper quadrant pain. Suspect cholecystitis CTA/P: Moderate gallbladder distention. No adjacent stranding. Cholecystitis not excluded. No bowel obstruction, and pole renal cysts Gallbladder ultrasound: Moderate gallbladder distention, no gallstones. No gallbladder wall thickening. A calculus cholecystitis cannot be excluded. Hepatomegaly with a 2.4 echogenic focus in left hepatic lobe noted, nonspecific and may be fat/hemangioma. May have routine nonemergent liver protocol MRI versus 3-6 months repeat ultrasound pending progression and stability Clinically at bedside patient is with right upper quadrant tenderness to palpation which worsens on inspiration consistent with Guaman's. Of note her pain also significantly worse is after attempted meals and then gradually improves when not eating. Given clinical exam consistent with cholecystitis and equivocal findings, surgery was consulted. HIDA scan was ordered. HIDA scan will be completed today If HIDA scan is negative, GI is involved for the possibility of peptic ulcer disease. Patient has a history of peptic ulcer disease in the past. An EGD will be considered then. Continue cefepime and Flagyl. Urine analysis and culture ordered. Uncollected. Patient has ESRD and probably does not make as much urine. WBC count down from 19,000-13,000 today Patient is using Oxy IR for pain control (2) ESRD (end stage renal disease) on dialysis: Plan: Secondary to hypertension On Friday dialysis Nephrology on board (3) Acute hyperkalemia: Plan: In the setting of ESRD with missed dialysis session EKG: Normal sinus rhythm, nonspecific T wave abnormality, QTc 428. Peaked T waves are present Patient was treated with insulin and dextrose. Was later dialyzed on 11/23 Potassium within normal limits now (4) Dysuria: Plan: Noted that urinalysis and urine culture has been ordered Remains uncollected Patient most likely does not produce as much urine as she has ESRD. (5) Elevated troponin: Plan: - HS-trop 29 on admit. Troponin flat - No chest pain - Echo on 11/24 showed no wall motion abnormalities Likely demand ischemia secondary to ESRD (6) Hypertension: Plan: - Continue labetalol, amlodipine with holding parameters Blood pressure stable (7) IBS (irritable bowel syndrome): Plan: Previously on for Baresel 100 mg twice daily (8) Lumbar radiculopathy: Plan: Follows with neurology Amitriptyline Gabapentin, Fall precautions Plan Abnormal MRI, prior concern for demyelinative disease Chronic nonspecific white matter changes noted, following with neurology DVT prophylaxis: SCDs Diet: N.p.o. CODE STATUS: Full code Admission and Anticipated Discharge Date Admission Date: November 23, 2022 Subjective Patient complains of 8/10 pain. However she has not used IV narcotics. She is now on oxy which is controlling the pain. She is n.p.o. postmidnight for HIDA scan today. Review of Systems Review of Systems: All systems reviewed & are unremarkable except as noted in Subjective Physical Exam Physical Exam: General: Awake, conversant Heart: S1, S2/regular rate and rhythm, no murmur rubs or gallops Lungs: Clear to auscultation bilaterally. Normal effort Abdomen: Soft/nondistended. Mild tenderness to palpation in the epigastric region and right upper quadrant area. No rebound, rigidity or guarding. Obese abdomen. No hepatosplenomegaly Extremities: No clubbing/cyanosis. No edema Behavior: Appropriate, cooperative Results & Data Results & Data Vital Signs (Past 12 Hours) Vital Signs Temp Pulse Pulse Pulse Resp BP Pulse Ox 11/25/22 08:00 88 11/25/22 07:43 37.0 C 89 20 128/83 97 11/25/22 03:00 37.0 C 91 H 23 109/68 96 11/24/22 23:34 90 11/24/22 23:23 37.1 C 89 18 92/56 L 100 O2 Del Method 11/25/22 08:00 11/25/22 07:43 Room Air 11/25/22 03:00 Room Air 11/24/22 23:34 11/24/22 23:23 Room Air Laboratory Results Abnormal lab results 11/25/22 11/25/22 Range/Units 06:39 06:39 WBC 13.02 H (4.8-10.8) K/ul RBC 2.50 L (4.20-5.40) M/uL Hgb 7.9 L (12.0-16.0) g/dl Hct 24.6 L (37.0-47.0) % RDW Std Deviation 57.1 H (36.4-46.3) fL RDW Coeff of Hosea 16.0 H (11.5-14.5) % Anion Gap 13 H (3-11) BUN 36 H (6-23) mg/dl Creatinine 9.92 H* D (0.6-1.2) mg/dl BUN/Creatinine Ratio 3.6 L (10-20) PG Care Time/CCT Total # of Minutes Spent Total Time Spent with Patient: Total time spent is greater than 50% in coordination of care (as documented) at patient's floor/unit and/or counseling patient: Coding Level of Care Code 43584 SUB INP/OBS CARE 235MIN Diagnoses Abdominal pain R10.84 Abdominal location: generalized ESRD (end stage renal disease) on dialysis N18.6; Z99.2 Acute hyperkalemia E87.5 Dysuria R30.0 Elevated troponin R77.8 Hypertension I10 IBS (irritable bowel syndrome) K58.9 Lumbar radiculopathy M54.16 (1) Abdominal pain Abdominal location: generalized Qualified Code(s): R10.84 - Generalized abdominal pain
--- NOTE | 2022-11-25 12:35 | Nuclear Medicine Report ---
NUCLEAR HEPATOBILIARY SCAN CLINICAL HISTORY: Right upper quadrant abdominal pain. COMPARISON STUDY: Abdominal ultrasound dated 11/23/2022. TECHNIQUE: Dynamic images of the liver and anterior abdomen were obtained every 5 minutes for a total of 60 minutes following the IV administration of 5.3 mCi of technetium 99m Mebrofenin. Additional im age was performed at 75 minutes. FINDINGS: The hepatobiliary scan shows prompt and homogeneous hepatic uptake. There is visualized act ivity within the intra and extrahepatic biliary tree at 10 minutes. There is normal biliary to bowel transit, with small bowel visualized by 15 minutes. There is faint activity seen within the gallblad lance on the 60 minute image. This was confirmed on the 75 minute delayed image. IMPRESSION: There is no scintigraphic evidence of cholecystitis. ACT 112: Negative or not required by law. Electronically signed by: Arian Seth M.D. 11/25/2022 12:34 PM
[2022-11-25] MEDS ORDERED: HYDROmorphone INJ 0.5 MG/0.5 ML SYR IV PRN (14:55)
--- NOTE | 2022-11-25 15:18 | Surgery Progress Note ---
Date of Service November 25, 2022 Assessment & Plan (1) Abdominal pain: Plan: RUQ abdominal pain Ultrasound , CT scan, and HIDA scan without cholecystitis ? etiology of her pain DDx: PUD, biliary dyskinesia, gastritis Plan: No surgical intervention recommended at this time given normal imaging studies of gallbladder. Consider upper endoscopy given history of PUD and pain with eating and drinking Continue antibiotics continue pain management continue medical management Admission and Anticipated Discharge Date Admission Date: November 23, 2022 Subjective still having abdominal pain, about the same. pain in RUQ, epigastric and RLQ around flank area. States pain is immediately after eating and drinking. Doesn't have to be certain foods. History of PUD in past. Physical Exam Constitutional: WD/WN, vitals as above + morbidly obese; no acute distress and not ill appearing Neck: normal visual inspection and trachea midline Respiratory: normal respiratory effort; no respiratory distress Gastrointestinal (Abdomen): Inspection/Auscultation: abdomen normal to inspection; abdomen not distended Percussion/Palpation: + abdomen tender (RUQ, RLQ, Right flank, epigastrium) and abdomen soft; no guarding, abdomen not rigid and abdomen not firm Skin: no rashes, warm and dry Psychiatric: Orientation: alert and oriented x 3 Results & Data Vital Signs (Past 12 Hours) Vital Signs Temp Pulse Pulse Resp BP Pulse Ox O2 Del Method 11/25/22 08:00 88 11/25/22 07:43 37.0 C 89 20 128/83 97 Room Air Laboratory Results 11/25/22 11/25/22 Range/Units 06:39 06:39 WBC 13.02 H (4.8-10.8) K/ul RBC 2.50 L (4.20-5.40) M/uL Hgb 7.9 L (12.0-16.0) g/dl Hct 24.6 L (37.0-47.0) % MCV 98.4 (80.0-100.0) fL MCH 31.6 (25.0-34.0) pg MCHC 32.1 (32.0-36.0) g/dL RDW Std Deviation 57.1 H (36.4-46.3) fL RDW Coeff of Hosea 16.0 H (11.5-14.5) % Plt Count 222 (130-400) K/uL MPV 9.6 (9.4-12.4) fL Absolute Nucleated RBC 0.02 (0-0.12) K/uL Nucleated RBC % (auto) 0.2 % Sodium 136 (136-145) mmol/L Potassium 4.3 (3.5-5.1) mmol/L Chloride 98 (98-107) mmol/L Carbon Dioxide 25 (21-32) mmol/L Anion Gap 13 H (3-11) BUN 36 H (6-23) mg/dl Creatinine 9.92 H* D (0.6-1.2) mg/dl Est Cr Clr Drug Dosing 10.1 ml/min Est GFR ( Amer) 5.0 ml/min Est GFR (Non-Af Amer) 4.3 ml/min BUN/Creatinine Ratio 3.6 L (10-20) Glucose 84 (70-99(Fasting)) mg/dl Calcium 8.7 (8.5-10.1) mg/dl Diagnostic Findings NUCLEAR HEPATOBILIARY SCAN CLINICAL HISTORY: Right upper quadrant abdominal pain. COMPARISON STUDY: Abdominal ultrasound dated 11/23/2022. TECHNIQUE: Dynamic images of the liver and anterior abdomen were obtained every 5 minutes for a total of 60 minutes following the IV administration of 5.3 mCi of technetium 99m Mebrofenin. Additional image was performed at 75 minutes. FINDINGS: The hepatobiliary scan shows prompt and homogeneous hepatic uptake. There is visualized activity within the intra and extrahepatic biliary tree at 10 minutes. There is normal biliary to bowel transit, with small bowel visualized by 15 minutes. There is faint activity seen within the gallbladder on the 60 minute image. This was confirmed on the 75 minute delayed image. IMPRESSION: There is no scintigraphic evidence of cholecystitis. (1) Abdominal pain Abdominal location: generalized Qualified Code(s): R10.84 - Generalized abdominal pain
[2022-11-25] MEDS: CEFEPIME 1,000 MG in SYRINGE 0 ML IV SCH (17:45)
[2022-11-25] MEDS: HYDROmorphone INJ 0.5 MG/0.5 ML SYR IV PRN ×2 (17:55→22:25)
[2022-11-25] MEDS: ATORVASTATIN 10 MG TAB PO SCH (21:05)
[2022-11-25] MEDS: AMITRIPTYLINE HCL 50 MG TAB PO SCH (21:05)
[2022-11-26] MEDS: metroNIDAZOLE 500 MG/100 ML BAG IV SCH ×2 (00:13→10:18)
[2022-11-26 06:51] LABS: Hematocrit (blood only) 23.8 % (37.0-47.0); Hemoglobin 7.5 g/dl (12.0-16.0); Mean Corpuscular Hemoglobin 31.6 pg (25.0-34.0); Mean Corpuscular Hgb Conc 31.5 g/dL (32.0-36.0); Mean Corpuscular Volume 100.4 fL (80.0-100.0); Mean Platelet Volume 9.8 fL (9.4-12.4); Platelet Count 245 K/uL (130-400); RDW Coefficient of Variation 16.3 % (11.5-14.5); RDW Standard Deviation 60.5 fL (36.4-46.3); Red Blood Count 2.37 M/uL (4.20-5.40); White Blood Count 9.91 K/ul (4.8-10.8)
[2022-11-26] MEDS ORDERED: EPOETIN ALFA 20,000 UNITS/ML VIAL IV ONE (07:00)
[2022-11-26] MEDS ORDERED: SODIUM CHLORIDE 0.9% 1000ML 1,000 ML IV PRN (07:00)
[2022-11-26 07:31] LABS: BUN Creatinine Ratio 3.8 (10-20); Calcium 8.6 mg/dl (8.5-10.1); Est GFR (African American) 3.9 ml/min; Est GFR (Non-African American) 3.4 ml/min; Potassium 4.6 mmol/L (3.5-5.1)
[2022-11-26 07:34] LABS: Ferritin 299.4 ng/ml (8-388)
[2022-11-26] MEDS ORDERED: LIDOCAINE 2% MPF LOCAL 5 ML VIAL INFIL ONE (08:27)
[2022-11-26] MEDS ORDERED: PROPOFOL IV EMULSION 10 MG/ML 20 ML VIAL IV ONE ×2 (08:27→09:29)
--- NOTE | 2022-11-26 09:06 | Communication Note ---
Date of Service: November 26, 2022 Astrid continues to complain of RUQ abdominal pain and nausea this AM. She denies any fevers, chills, vomiting, hematemesis, melena or hematochezia. She d enies any further complaints. Gen: A+O x3, Cooperative, Obese Chest: CTA B/L CVS: RRR Abd: Soft, tender RUQ, ND, +BS Ext:-c/c/e Impression: 41 yo female with continued RUQ abdominal pain and nausea. Plan: Proceed with EGD today Continue current therapy and supportive care.
[2022-11-26] MEDS ORDERED: ATROPINE SULFATE 0.1 MG/ML 10ML SYR IV PRN (09:07)
--- NOTE | 2022-11-26 09:07 | Anesthesiology Consultation ---
Date of Service November 26, 2022 Assessment & Plan Chart Review Chart Review: Acceptable Risk for Surgery and Patient NOT seen in Pre Admission Testing Consults Requested none ASA ASA4 Proposed Anesthesia Anesthesia Type: MAC Risk / Benefits Reviewed With: PT / POA / Parent / Guardian, Accepts Plan and Informed Consent Obtained History Surgery Operation Date: 11/26/22 17:00 Proposed Procedures p Esophagogastroduodenoscopy Dr Taylor - Nik Rashid Case, DO Height/Weight Height: 5 ft 4 in Weight: 131.1 kg Allergies Allergy/AdvReac Type Severity Reaction Status Date / Time pneumococcal 7-valent Allergy Swelling Verified 11/26/22 08:41 conjugate to of [From Prevnar] Lip/Tongue/Throat Medications Home Medications Medication Instructions Recorded Confirmed Last Taken calcium acetate(phosphat bind) 667 2,001 mg PO TIDM 09/30/18 11/23/22 11/23/22 mg capsule famotidine 20 mg tablet 20 mg PO BID #20 tabs 12/05/18 11/23/22 11/23/22 loperamide 2 mg capsule 2 mg PO Q4H PRN loose stool #60 05/26/19 11/23/22 08/09/19 caps atorvastatin 10 mg tablet (Lipitor) 10 mg PO QPM #90 tabs 03/08/20 11/23/22 11/22/22 cinacalcet 30 mg tablet 30 mg PO DAILY 08/02/20 11/23/22 11/23/22 promethazine 25 mg tablet 25 mg PO Q6H PRN nausea and 09/27/20 11/23/22 Unknown vomiting #30 tabs rizatriptan 10 mg disintegrating 10 mg PO Q2H PRN migraine headache 07/16/21 11/23/22 Unknown tablet #12 tabs cyclobenzaprine 5 mg tablet 5 mg PO HS PRN muscle spasm #30 10/19/21 11/23/22 Unknown tabs medroxyprogesterone 150 mg/mL 150 mg IM .q12wk #1 mL 03/08/22 11/23/22 10/16/22 intramuscular suspension gabapentin 100 mg capsule 100 mg PO TID #90 caps 08/12/22 11/23/22 11/23/22 amitriptyline 50 mg tablet 50 mg PO HS 30 days #30 tabs 08/23/22 11/23/22 11/22/22 cefdinir 300 mg capsule 300 mg PO BID 10 days #20 caps 10/09/22 11/23/22 11/23/22 cephalexin 250 mg capsule 250 mg PO BID 3 days #6 caps 10/28/22 11/23/22 Unknown eluxadoline 100 mg tablet (Viberzi) 100 mg PO BID IBS-D #60 tabs 11/13/22 11/23/22 11/23/22 amlodipine 5 mg tablet 5 mg PO DAILY 11/23/22 11/23/22 11/23/22 labetalol 200 mg tablet 800 mg PO TID 11/23/22 11/23/22 11/23/22 pantoprazole 40 mg tablet,delayed 40 mg PO BID 11/23/22 11/23/22 11/23/22 release sumatriptan succinate 6 mg/0.5 mL 6 mg subcut .COMPLEX PRN Headache 11/23/22 11/23/22 Unknown subcutaneous pen injector triamcinolone acetonide 0.1 % 1 applic topical BID 11/23/22 11/23/22 Unknown topical ointment Active Medications Generic Name Dose Route Start Last Admin Trade Name Freq PRN Reason Stop Dose Admin Amitriptyline HCl 50 mg 11/23/22 21:00 11/25/22 21:05 Amitriptyline Hcl 50 Mg Tab PO 12/23/22 20:59 50 mg HS ZACHERY Administration Amlodipine Besylate 5 mg 11/24/22 09:00 11/25/22 09:04 Amlodipine Besylate 5 Mg Tab PO 12/24/22 08:59 5 mg DAILY ZACHERY Administration Atorvastatin Calcium 10 mg 11/23/22 21:00 11/25/22 21:05 Atorvastatin 10 Mg Tab PO 12/23/22 20:59 10 mg QPM ZACHERY Administration Calcium Acetate 2,001 mg 11/23/22 17:49 11/25/22 17:45 Calcium Acetate 667 Mg Cap/Tab PO 12/23/22 17:48 2,001 mg TIDM ZACHERY Administration Cinacalcet 30 mg 11/24/22 07:30 11/25/22 09:04 Cinacalcet Hcl 30 Mg Tab PO 12/24/22 07:29 30 mg QDB ZACHERY Administration Famotidine 20 mg 11/23/22 21:00 11/25/22 21:05 Famotidine 20 Mg Tab PO 12/23/22 20:59 20 mg BID ZACHERY Administration Gabapentin 100 mg 11/23/22 17:49 11/25/22 21:05 Gabapentin 100 Mg Cap PO 12/23/22 17:48 100 mg TID ZACHERY Administration Hydromorphone HCl 0.5 mg 11/25/22 14:55 11/25/22 22:25 Hydromorphone Inj 0.5 Mg/0.5 Ml Syr IV 12/09/22 14:54 0.5 mg Q3H PRN Administration Severe Pain (Scale 7, 8, 9,10) Metronidazole 500 mg in 100 mls @ 100 mls/hr 11/23/22 16:00 11/26/22 01:18 Flagyl IV 12/03/22 15:59 Infused Q8H ZACHERY Infusion Cefepime HCl 1,000 mg/ Syringe 10 mls @ 5 mls/min 11/24/22 16:00 11/25/22 17: 45 IV 12/04/22 15:59 5 mls/min DAILY@1600 ZACHERY Administration Protocol Labetalol HCl 800 mg 11/23/22 17:49 11/25/22 21:04 Labetalol Hcl 200 Mg Tab PO 12/23/22 17:48 800 mg TID ZACHERY Administration Oxycodone HCl 5 mg 11/24/22 09:13 11/25/22 14:06 Oxycodone Hcl Ir 5 Mg Tab (Immediate Release) PO 12/08/22 09:12 5 mg Q6 PRN Administration Mild Pain (Scale 1, 2, 3) Pantoprazole Sodium 40 mg 11/23/22 21:00 11/25/22 21:06 Pantoprazole 40 Mg Tab PO 12/23/22 20:59 40 mg BID ZACHERY Administration NPO Date Last Intake of Fluids: 11/25/22 Time Last Intake of Fluids: 19:00 Date Last Intake of Solids: 11/25/22 Time Last Intake of Solids: 19:00 Past Medical History Medical History A-V fistula right arm Abnormal MRI Asthma Chronic back pain Chronic kidney disease (CKD), stage IV (severe) dialysis shi/misty--follows with Dr. Yvette Aviles with anxiety End stage renal disease End-stage renal disease on hemodialysis GERD (gastroesophageal reflux disease) Heart murmur History of gastric ulcer Hypertension Low thyroid stimulating hormone (TSH) level LVH (left ventricular hypertrophy) Morbid obesity with BMI of 45.0-49.9, adult Nephrolithiasis Renal cyst Exercise / Class Metabolic Activity III < 4 Walking/Shop/Light housework Past Family History Family History Mother Family history of diabetes mellitus Sister Family history of diabetes mellitus x3 Aunt Heart disease Father Family history of kidney disease Other No family history of adverse response to anesthesia Denies family history of Pancreatic cancer Ovarian cancer Prostate cancer Myocardial infarction Breast cancer Colorectal cancer Uterine cancer Past Surgical History Surgical History H/O tubal ligation History of abdominal surgery repair skin around scar History of abdominoplasty History of section x4 History of esophagogastroduodenoscopy (EGD) History of wisdom tooth extraction Past Anesthesia History No Hx of Anesthesia Complications and No Family Hx of Anesthesia Complications History of PONV No Hx of PONV and No Hx of Motion Sickness Social History Smoking Status: Never smoker Hx Alcohol Use: No Hx Substance Use: No substance use type: does not use Physical Exam Vital Signs Last Vital Signs Temp 36.2 C L 11/26/22 08:53 Pulse 89 11/26/22 08:53 Resp 18 11/26/22 08:53 BP 150/82 H 11/26/22 08:53 Pulse Ox 99 11/26/22 08:53 O2 Del Method Room Air 11/26/22 08:53 O2 Flow Rate 4 11/24/22 17:49 Constitutional + morbidly obese; no acute distress ENMT Mouth: no TMJ abnormality and no dentition abnormality Thyromental Distance: < 3.5 Finger Breadths Mallampati Class: III Neck normal visual inspection and trachea midline; neck extension not limited Respiratory normal respiratory effort Auscultation: lungs clear to auscultation bilaterally and + diminished lung sounds Cardiovascular Rate/Rhythm: regular rate and regular rhythm Heart Sounds: no murmur Vessels: no carotid bruit Chest (Breasts) Chest: + vascular access device or port (RUE fistula) Musculoskeletal Spine: normal cervical ROM and no pain with cervical ROM Extremities: full ROM of extremities Neurologic moves all extremities Motor/Sensory: no sensory deficit Psychiatric Orientation: alert and oriented x 3 Testing Laboratory Results 11/26/22 05:29 11/26/22 05:29 Electrocardiogram Date: 11/23/22 Findings: + NSR @ (@ 90;LAD;low voltage QRS) Chest X-Ray Date: 11/23/22 Findings: + NAD
--- NOTE | 2022-11-26 09:11 | Nephrology Progress Note ---
Date of Service November 26, 2022 Assessment & Plan (1) ESRD (end stage renal disease) on dialysis: Plan: * Will provide heparin free HD today. Orders have been entered into EMR and HD RN notified * Outpatient HD Rx: ROSAMARIAC Christel TTS 3K 2.5Ca F-180NR Qb 430/Qd A1.5 EDW 127kg * R RC AVF created [address] Sherman * Removed from transplant list due to BMI > 35 (2) Diarrhea: Plan: * RUQ US - possible acalculous cholecystitis * HIDA scan negative for cholecystitis * EGD negative for bleeding gastric ulcers * Lipase 11 (3) Anemia: Plan: * Hgb slowly trending down * EGD was negative for actively bleeding gastric ulcers * Will recheck H&H in am * Will provide MARIO w/ HD today (4) Leukocytosis: Plan: * 11/24/22 urine culture with skin cathryn only (5) Elevated troponin: Plan: * Troponin trending up * 11/23/22 Echocardiogram: LVEF >70%, no focal WMA Admission and Anticipated Discharge Date Admission Date: November 23, 2022 Subjective Ms. Gallardo was evaluated in her hospital room this morning. She has returned from EGD and reports that no bleeding ulcer was found Review of Systems Constitutional: no fever Eyes: no problem reported Ear, Nose, Mouth, Throat: no problem reported Respiratory: no dyspnea Cardiovascular: no chest pain Gastrointestinal: + nausea, + vomiting and + diarrhea/loose stools Physical Exam Constitutional: not in distress Eyes: PERRL, conjunctivae normal, anicteric sclerae ENMT: external ear and nose normal, oropharynx normal Neck: trachea midline, no thyromegaly Respiratory: normal respiratory effort, lungs clear to auscultation Cardiovascular: RRR, no murmur, no edema Extremities: + AV fistula (+ bruit) Gastrointestinal (Abdomen): Inspection/Auscultation: + hypoactive bowel sounds Percussion/Palpation: + abdomen tender (RUQ) and abdomen soft; no guarding Neurologic: awake Speech / Cognition: normal speech and normal cognition Results & Data Vital Signs (Past 12 Hours) Vital Signs Temp Pulse Pulse Pulse Resp BP Pulse Ox 11/26/22 08:53 36.2 C L 89 18 150/82 H 99 11/26/22 07:15 37.1 C 83 16 129/75 98 11/26/22 07:00 79 11/26/22 03:29 36.7 C 80 20 150/66 H 96 11/25/22 23:48 36.7 C 83 20 148/65 H 96 11/25/22 23:29 90 O2 Del Method 11/26/22 08:53 Room Air 11/26/22 07:15 Room Air 11/26/22 07:00 11/26/22 03:29 Room Air 11/25/22 23:48 Room Air 11/25/22 23:29 Laboratory Results Laboratory Tests 11/24/22 11/24/22 11/26/22 04:07 09:40 05:29 WBC 9.91 Hgb 7.5 L Hct 23.8 L Plt Count 245 Sodium Potassium Chloride Carbon Dioxide BUN Creatinine Glucose Transferrin % Sat Ferritin Troponin I High Sens 45.0 H D 35.1 H 11/26/22 05:29 WBC Hgb Hct Plt Count Sodium 136 Potassium 4.6 Chloride 98 Carbon Dioxide 24 BUN 46 H Creatinine 12.26 H* D Glucose 88 Transferrin % Sat 16 Ferritin 299.4 Troponin I High Sens Diagnostic Findings 11/25/22 HIDA scan: FINDINGS: The hepatobiliary scan shows prompt and homogeneous hepatic uptake. There is visualized activity within the intra and extrahepatic biliary tree at 10 minutes. There is normal biliary to bowel transit, with small bowel visualized by 15 minutes. There is faint activity seen within the gallbladder on the 60 minute image. This was confirmed on the 75 minute delayed image. IMPRESSION: There is no scintigraphic evidence of cholecystitis. PG Care Time/CCT Total # of Minutes Spent Total Time Spent with Patient: Total time spent is greater than 50% in coordination of care (as documented) at patient's floor/unit and/or counseling patient: Coding Level of Care Code 67801 SUB INP/OBS CARE 350MIN Diagnoses ESRD (end stage renal disease) on dialysis N18.6; Z99.2 Diarrhea R19.7 Diarrhea type: presumed infectious Anemia D64.9 Leukocytosis D72.829 Elevated troponin R77.8 (2) Diarrhea Diarrhea type: presumed infectious Qualified Code(s): R19.7 - Diarrhea, unspecified
[2022-11-26] MEDS ORDERED: ONDANSETRON INJ 2 MG/ML 2 ML VIAL ONE (09:29)
--- NOTE | 2022-11-26 09:31 | GI REPORT ---
Patient Name: Astrid Gallardo Procedure Date: 11/26/2022 8:46 AM Date of : 1980 Admit Type: Inpatient Age: 41 Gender: Female Attending MD: Nik Taylor DO, Procedure: Upper GI endoscopy Providers: Nik Taylor DO Referring MD: Justina Valerio Md Indications: Abdominal pain in the right upper quadrant, Nausea Medicines: Monitored Anesthesia Care Complications: No immediate complications. Estimated Blood Loss: Estimated blood loss: none. Procedure: Pre-Anesthesia Assessment: - Prior to the procedure, a History and Physical was performed, and patient medications and allergies were reviewed. The patient's tolerance of previous anesthesia was also reviewed. The risks and benefits of the procedure and the sedation options and risks were discussed with the patient. All questions were answered, and informed consent was obtained. Prior Anticoagulants: The patient has taken no anticoagulant or antiplatelet agents. ASA Grade Assessment: IV - A patient with severe systemic disease that is a constant threat to life. After reviewing the risks and benefits, the patient was deemed in satisfactory condition to undergo the procedure. After obtaining informed consent, the endoscope was passed under direct vision. Throughout the procedure, the patient's blood pressure, pulse, and oxygen saturations were monitored continuously. The Endoscope was introduced through the mouth, and advanced to the second part of duodenum. The upper GI endoscopy was accomplished without difficulty. The patient tolerated the procedure well. Findings: The esophagus was normal. Many non-bleeding superficial gastric ulcers with no stigmata of bleeding were found in the gastric antrum. The largest lesion was 5 mm in largest dimension. Biopsies were taken with a cold forceps for histology. The examined duodenum was normal. Impression: - Normal esophagus. - Non-bleeding gastric ulcers with no stigmata of bleeding. Biopsied. - Normal examined duodenum. Recommendation: - Return patient to [facility] for [facility] care. - Advance diet as tolerated. - Continue present medications. - Await pathology results. Nik Taylor DO 11/26/2022 9:30:44 AM This report has been signed electronically. Note Initiated On: 11/26/2022 8:46 AM Number of Addenda: 0 I attest to the content of the Intraoperative Record and orders documented therein, exceptions below {[id number]}
--- NOTE | 2022-11-26 09:50 | Anesthesiology Progress Note ---
Date of Service November 26, 2022 Anesthesia Post Procedure Vital Signs Vital Signs: Temp Pulse Pulse Pulse Resp BP Pulse Ox 11/26/22 09:30 92 H 16 110/63 96 11/26/22 08:53 36.2 C L 89 18 150/82 H 99 11/26/22 07:15 37.1 C 83 16 129/75 98 11/26/22 07:00 79 11/26/22 03:29 36.7 C 80 20 150/66 H 96 11/25/22 23:48 36.7 C 83 20 148/65 H 96 11/25/22 23:29 90 11/25/22 19:08 37.0 C 83 20 117/67 100 11/25/22 16:00 81 11/25/22 16:14 37.1 C 82 20 120/68 94 O2 Del Method 11/26/22 09:30 Room Air 11/26/22 08:53 Room Air 11/26/22 07:15 Room Air 11/26/22 07:00 11/26/22 03:29 Room Air 11/25/22 23:48 Room Air 11/25/22 23:29 11/25/22 19:08 Room Air 11/25/22 16:00 11/25/22 16:14 Room Air Pain Intensity Abdomen: Pain Intensity: 9 Transfer of Care Handoff Completed per policy Notes Mental Status: alert / awake / arousable Patient Amnestic to Procedure: Yes Nausea / Vomiting: adequately controlled Pain: adequately controlled Airway Patency, RR, SpO2: stable & adequate BP & HR: stable & adequate Hydration State: stable & adequate Anesthetic Complications: no major complications apparent
[2022-11-26] MEDS: FAMOTIDINE 20 MG TAB PO SCH ×2 (10:19→20:20)
[2022-11-26] MEDS: GABAPENTIN 100 MG CAP PO SCH ×3 (10:19→21:49)
[2022-11-26] MEDS: LABETALOL HCL 200 MG TAB PO SCH ×3 (10:19→20:22)
[2022-11-26] MEDS: CINACALCET HCL 30 MG TAB PO SCH (10:20)
[2022-11-26] MEDS: amLODIPine BESYLATE 5 MG TAB PO SCH (10:20)
[2022-11-26] MEDS: PANTOprazole 40 MG TAB PO SCH ×2 (10:20→20:20)
[2022-11-26] MEDS: CALCIUM ACETATE 667 MG CAP/TAB PO SCH ×3 (10:20→18:47)
[2022-11-26] MEDS: SUCRALFATE 1 GM/10 ML UDC PO SCH ×3 (11:56→20:20)
[2022-11-26] MEDS ORDERED: IRON SUCROSE 300 MG in SODIUM CHLORIDE 0.9% 250 ML IV SCH (12:00)
--- NOTE | 2022-11-26 13:39 | Hospitalist Progress Note ---
Date of Service November 26, 2022 Assessment & Plan (1) Abdominal pain: Plan: Patient presented with nausea/vomiting/diarrhea/right upper quadrant pain. Initially suspected cholecystitis CTA/P: Moderate gallbladder distention. No adjacent stranding. Cholecystitis not excluded. No bowel obstruction, and pole renal cysts Gallbladder ultrasound: Moderate gallbladder distention, no gallstones. No gallbladder wall thickening. A calculus cholecystitis cannot be excluded. Hepatomegaly with a 2.4 echogenic focus in left hepatic lobe noted, nonspecific and may be fat/hemangioma. May have routine nonemergent liver protocol MRI versus 3-6 months repeat ultrasound pending progression and stability HIDA scan finally ruled out cholecystitis Since cholecystitis was ruled out, GI performed an EGD which showed multiple nonbleeding gastric ulcers. Patient is on p.o. Protonix 40 mg twice daily. I will continue that. Started her on Carafate Discontinue IV Dilaudid Since acute cholecystitis was ruled out, will discontinue cefepime and Flagyl. Resume solid meals Likely discharge tomorrow (2) ESRD (end stage renal disease) on dialysis: Plan: Secondary to hypertension On Friday dialysis Nephrology on board (3) Acute hyperkalemia: Plan: In the setting of ESRD with missed dialysis session EKG: Normal sinus rhythm, nonspecific T wave abnormality, QTc 428. Peaked T waves are present Patient was treated with insulin and dextrose. Was later dialyzed on 11/23 Potassium within normal limits now (4) Dysuria: Plan: Noted that urinalysis and urine culture has been ordered Remains uncollected Patient most likely does not produce as much urine as she has ESRD. (5) Elevated troponin: Plan: - HS-trop 29 on admit. Troponin flat - No chest pain - Echo on 11/24 showed no wall motion abnormalities Likely demand ischemia secondary to ESRD (6) Hypertension: Plan: - Continue labetalol, amlodipine with holding parameters Blood pressure stable (7) IBS (irritable bowel syndrome): Plan: Previously on for Baresel 100 mg twice daily (8) Lumbar radiculopathy: Plan: Follows with neurology Amitriptyline Gabapentin, Fall precautions Plan Abnormal MRI, prior concern for demyelinative disease Chronic nonspecific white matter changes noted, following with neurology DVT prophylaxis: SCDs Diet: N.p.o. CODE STATUS: Full code Admission and Anticipated Discharge Date Admission Date: November 23, 2022 Subjective Patient just got back from EGD today. Says that 5 stomach ulcers were found with no bleeding. She says that she is hungry and would like to eat. She is willing to be off of the IV narcotics. Review of Systems Review of Systems: All systems reviewed & are unremarkable except as noted in Subjective Physical Exam Physical Exam: General: Awake, conversant Heart: S1, S2/regular rate and rhythm, no murmur rubs or gallops Lungs: Clear to auscultation bilaterally. Normal effort Abdomen: Soft/nondistended. Mild tenderness to palpation in the epigastric region and right upper quadrant area. No rebound, rigidity or guarding. Obese abdomen. No hepatosplenomegaly Extremities: No clubbing/cyanosis. No edema Behavior: Appropriate, cooperative Results & Data Results & Data Vital Signs (Past 12 Hours) Vital Signs Temp Pulse Pulse Pulse Resp BP BP 11/26/22 11:33 36.5 C 77 18 147/73 H 11/26/22 07:15 37.1 C 83 18 129/75 11/26/22 10:00 81 16 138/86 11/26/22 09:45 80 16 146/81 H 11/26/22 09:30 92 H 16 110/63 11/26/22 08:53 36.2 C L 89 18 150/82 H 11/26/22 07:15 37.1 C 83 16 129/75 11/26/22 07:00 79 11/26/22 03:29 36.7 C 80 20 150/66 H Pulse Ox O2 Del Method 11/26/22 11:33 98 Room Air 11/26/22 07:15 98 Room Air 11/26/22 10:00 99 Room Air 11/26/22 09:45 100 Room Air 11/26/22 09:30 96 Room Air 11/26/22 08:53 99 Room Air 11/26/22 07:15 98 Room Air 11/26/22 07:00 11/26/22 03:29 96 Room Air Laboratory Results Abnormal lab results 11/26/22 11/26/22 Range/Units 05:29 05:29 RBC 2.37 L (4.20-5.40) M/uL Hgb 7.5 L (12.0-16.0) g/dl Hct 23.8 L (37.0-47.0) % MCV 100.4 H (80.0-100.0) fL MCHC 31.5 L (32.0-36.0) g/dL RDW Std Deviation 60.5 H (36.4-46.3) fL RDW Coeff of Hosea 16.3 H (11.5-14.5) % Anion Gap 14 H (3-11) BUN 46 H (6-23) mg/dl Creatinine 12.26 H* D (0.6-1.2) mg/dl BUN/Creatinine Ratio 3.8 L (10-20) Iron 29 L (35-150) mcg/dl TIBC 185 L (250-450) mcg/dl PG Care Time/CCT Total # of Minutes Spent Total Time Spent with Patient: Total time spent is greater than 50% in coordination of care (as documented) at patient's floor/unit and/or counseling patient: Coding Level of Care Code 84130 SUB INP/OBS CARE 235MIN Diagnoses Abdominal pain R10.84 Abdominal location: generalized ESRD (end stage renal disease) on dialysis N18.6; Z99.2 Acute hyperkalemia E87.5 Dysuria R30.0 Elevated troponin R77.8 Hypertension I10 IBS (irritable bowel syndrome) K58.9 Lumbar radiculopathy M54.16 (1) Abdominal pain Abdominal location: generalized Qualified Code(s): R10.84 - Generalized abdominal pain
--- NOTE | 2022-11-26 14:52 | Surgery Progress Note ---
Date of Service November 26, 2022 Assessment & Plan (1) Abdominal pain: Plan: RUQ abdominal pain Ultrasound , CT scan, and HIDA scan without cholecystitis EGD today showing nonbleeding ulcers Plan: No surgical intervention recommended at this time given normal imaging studies of gallbladder. Continue Protonix and Carafate per GI recommendations Low fat renal diet recommended continue medical management our services signing off, please call with questions/concerns Dr. Church has seen patient and agrees with above. Admission and Anticipated Discharge Date Admission Date: November 23, 2022 Subjective feeling a little better today abdominal pain slightly better had upper scope today showing nonbleeding ulcers in stomach Physical Exam Constitutional: WD/WN, vitals as above + obese, cooperative and comfortable; no acute distress sleepy from anesthesia for upper endoscopy this morning Respiratory: normal respiratory effort; no respiratory distress, no labored breathing and no retractions Skin: no rashes, warm and dry no jaundice Results & Data Vital Signs (Past 12 Hours) Vital Signs Temp Pulse Pulse Pulse Resp BP BP 11/26/22 11:33 36.5 C 77 18 147/73 H 11/26/22 07:15 37.1 C 83 18 129/75 11/26/22 10:00 81 16 138/86 11/26/22 09:45 80 16 146/81 H 11/26/22 09:30 92 H 16 110/63 11/26/22 08:53 36.2 C L 89 18 150/82 H 11/26/22 07:15 37.1 C 83 16 129/75 11/26/22 07:00 79 11/26/22 03:29 36.7 C 80 20 150/66 H Pulse Ox O2 Del Method 11/26/22 11:33 98 Room Air 11/26/22 07:15 98 Room Air 11/26/22 10:00 99 Room Air 11/26/22 09:45 100 Room Air 11/26/22 09:30 96 Room Air 11/26/22 08:53 99 Room Air 11/26/22 07:15 98 Room Air 11/26/22 07:00 11/26/22 03:29 96 Room Air Laboratory Results 11/26/22 11/26/22 Range/Units 05:29 05:29 WBC 9.91 (4.8-10.8) K/ul RBC 2.37 L (4.20-5.40) M/uL Hgb 7.5 L (12.0-16.0) g/dl Hct 23.8 L (37.0-47.0) % MCV 100.4 H (80.0-100.0) fL MCH 31.6 (25.0-34.0) pg MCHC 31.5 L (32.0-36.0) g/dL RDW Std Deviation 60.5 H (36.4-46.3) fL RDW Coeff of Hosea 16.3 H (11.5-14.5) % Plt Count 245 (130-400) K/uL MPV 9.8 (9.4-12.4) fL Sodium 136 (136-145) mmol/L Potassium 4.6 (3.5-5.1) mmol/L Chloride 98 (98-107) mmol/L Carbon Dioxide 24 (21-32) mmol/L Anion Gap 14 H (3-11) BUN 46 H (6-23) mg/dl Creatinine 12.26 H* D (0.6-1.2) mg/dl Est Cr Clr Drug Dosing 8.0 ml/min Est GFR ( Amer) 3.9 ml/min Est GFR (Non-Af Amer) 3.4 ml/min BUN/Creatinine Ratio 3.8 L (10-20) Glucose 88 (70-99(Fasting)) mg/dl Calcium 8.6 (8.5-10.1) mg/dl Iron 29 L (35-150) mcg/dl TIBC 185 L (250-450) mcg/dl Unsaturated IBC 156 (155-355) mcg/dl Transferrin % Sat 16 (15-50) % Ferritin 299.4 (8-388) ng/ml (1) Abdominal pain Abdominal location: generalized Qualified Code(s): R10.84 - Generalized abdominal pain
[2022-11-26] MEDS: oxyCODONE HCL IR 5 MG TAB (IMMEDIATE RELEASE) PO PRN (20:18)
[2022-11-26] MEDS: AMITRIPTYLINE HCL 50 MG TAB PO SCH (20:20)
[2022-11-26] MEDS: ATORVASTATIN 10 MG TAB PO SCH (20:21)
[2022-11-27 06:10] LABS: Hematocrit (blood only) 23.7 % (37.0-47.0); Hemoglobin 7.4 g/dl (12.0-16.0); Mean Corpuscular Hemoglobin 31.2 pg (25.0-34.0); Mean Corpuscular Hgb Conc 31.2 g/dL (32.0-36.0); Mean Platelet Volume 9.8 fL (9.4-12.4); Nucleated RBC # (auto) 0.03 K/uL (0-0.12); Nucleated RBC % (auto) 0.4 %; Platelet Count 230 K/uL (130-400); RDW Coefficient of Variation 16.3 % (11.5-14.5); RDW Standard Deviation 59.2 fL (36.4-46.3); Red Blood Count 2.37 M/uL (4.20-5.40)
[2022-11-27 06:29] LABS: BUN Creatinine Ratio 3.2 (10-20); Creatinine Clr Calc Pharmacy 11.3 ml/min; Est GFR (African American) 5.9 ml/min; Est GFR (Non-African American) 5.1 ml/min; Potassium 3.9 mmol/L (3.5-5.1)
[2022-11-27 07:47] VITALS: PULSE 95; TEMP 98.4; O2SAT 95
[2022-11-27] MEDS: GABAPENTIN 100 MG CAP PO SCH (08:02)
[2022-11-27] MEDS: PANTOprazole 40 MG TAB PO SCH (08:02)
[2022-11-27] MEDS: LABETALOL HCL 200 MG TAB PO SCH (08:02)
[2022-11-27] MEDS: CALCIUM ACETATE 667 MG CAP/TAB PO SCH (08:02)
[2022-11-27] MEDS: FAMOTIDINE 20 MG TAB PO SCH (08:02)
[2022-11-27] MEDS: SUCRALFATE 1 GM/10 ML UDC PO SCH (08:03)
[2022-11-27] MEDS: CINACALCET HCL 30 MG TAB PO SCH (08:03)
[2022-11-27] MEDS: amLODIPine BESYLATE 5 MG TAB PO SCH (08:03)
--- NOTE | 2022-11-27 08:43 | Nephrology Progress Note ---
Date of Service November 27, 2022 Assessment & Plan (1) ESRD (end stage renal disease) on dialysis: Plan: * No acute indication for HD today. If discharge is anticipated, please have patient resume her regular TTS HD at [facility] * Outpatient HD Rx: [facility] TTS 3K 2.5Ca F-180NR Qb 430/Qd A1.5 EDW 127kg * R RC AVF created [address] Sherman * Removed from transplant list due to BMI > 35 (2) Diarrhea: Plan: * RUQ US - possible acalculous cholecystitis * HIDA scan negative for cholecystitis * EGD negative for bleeding gastric ulcers * Lipase 11 (3) Anemia: Plan: * Hgb slowly trending down * EGD was negative for actively bleeding gastric ulcers * MARIO administered w/ HD yesterday (4) Leukocytosis: Plan: * 11/24/22 urine culture with skin cathryn only (5) Elevated troponin: Plan: * Troponin trending up * 11/23/22 Echocardiogram: LVEF >70%, no focal WMA Admission and Anticipated Discharge Date Admission Date: November 23, 2022 Subjective Ms. Gallardo was evaluated in her hospital room this morning. She is now tolerating a renal diet and reports that her diarrhea has resolved. Ms. Gallardo hopes to be discharged home today Review of Systems Constitutional: no fever Eyes: no problem reported Ear, Nose, Mouth, Throat: no problem reported Respiratory: no dyspnea Cardiovascular: no chest pain Gastrointestinal: + nausea, + vomiting and + diarrhea/loose stools Physical Exam Constitutional: not in distress Eyes: PERRL, conjunctivae normal, anicteric sclerae ENMT: external ear and nose normal, oropharynx normal Neck: trachea midline, no thyromegaly Respiratory: normal respiratory effort, lungs clear to auscultation Cardiovascular: RRR, no murmur, no edema Extremities: + AV fistula (+ bruit) Gastrointestinal (Abdomen): Inspection/Auscultation: + hypoactive bowel sounds Percussion/Palpation: + abdomen tender (RUQ) and abdomen soft; no guarding Neurologic: awake Speech / Cognition: normal speech and normal cognition Results & Data Vital Signs (Past 12 Hours) Vital Signs Temp Pulse Pulse Pulse Resp BP Pulse Ox 11/27/22 07:46 36.9 C 86 95 H 18 115/63 95 11/27/22 07:00 77 11/27/22 02:39 37.1 C 83 18 106/61 98 11/26/22 23:27 88 11/26/22 22:06 37.1 C 88 18 95/78 L 97 O2 Del Method 11/27/22 07:46 Room Air 11/27/22 07:00 11/27/22 02:39 Room Air 11/26/22 23:27 11/26/22 22:06 Room Air Laboratory Results Laboratory Tests 11/27/22 11/27/22 05:30 05:30 WBC 7.80 Hgb 7.4 L Hct 23.7 L Plt Count 230 Sodium 140 Potassium 3.9 Chloride 103 Carbon Dioxide 28 BUN 28 H Creatinine 8.73 H* D Glucose 96 PG Care Time/CCT Total # of Minutes Spent Total Time Spent with Patient: Total time spent is greater than 50% in coordination of care (as documented) at patient's floor/unit and/or counseling patient: Coding Level of Care Code 05671 SUB INP/OBS CARE 3/50MIN Diagnoses ESRD (end stage renal disease) on dialysis N18.6; Z99.2 Diarrhea R19.7 Diarrhea type: presumed infectious Anemia D64.9 Leukocytosis D72.829 Elevated troponin R77.8 (2) Diarrhea Diarrhea type: presumed infectious Qualified Code(s): R19.7 - Diarrhea, unspecified
--- NOTE | 2022-11-27 10:07 | Discharge Summary ---
Date of Service November 27, 2022 Admission HPI Per Admitting Provider Faina is a 41-year-old female with a past medical history of ESRD on dialysis, GERD, IBS, hypertension, lumbar radiculopathy, bilateral sciatica, 1-2 days of shortness of breath. She has had pain in RUQ in the front, back, and radiating downt he back. Endorses abdomianl pain, noticed it 5 days ago then 'got much less intense and not gone but OK, more like a UTI feeling' and then worsened especially over the last 2 days. Does still make urine, has had burning discomfort with urination in the last week which is not normal for her. No fevers, has had chills and night sweat Shortness of breath worsened with exertion more than normal. No chest pain with this. Can normally walk long distances No cough. No sputum production Both legs feel very weak. COuldn't walk to the bathroom to vomit this morning. Thrown up 3-4 times, no blood or bile. Clear-yellow in color. Decreased appetite last two days. +diarrhea +pain worsens with meals. As soon as she eats RUQ pain intensifies. - Dry weight 127.7 Current pain is compeltely different form sciatica Medical History: Reviewed Medications: Reviewed Surgical History: Reviewed Family history: Reviewed Allergies: Reviewed Social History: Reviewed Code Status: Surrogate DM would be Lin Valentine ([facility]). Full Code. [phone] Admission Exam Per Admitting Provider General: A&Ox3. NAD. Cooperative. HEENT: Atraumatic, normocephalic. Vision/hearing grossly intact Pulm: CTAB A&P. -wheezes, -rales, -rhonchi. Symmetrical chest rise. No increase in work of breathing. No respiratory distress. Cardiac: RRR, -mrg. Radial pulses intact and symmetrical. Abdominal: Right upper quadrant prominently tender to palpation with positive Guaman's. No guarding/rebound tenderness. BS diminished Extremities: Trace edema of the ankles. Sensation of soft touch is intact in hands and feet, deployment manager strength, elbow flexion, ankle dorsiflexion/plantarflexion is 5/5 bilaterally. No asymmetry. Cap refill brisk. Right AV fistula with good thrill. Principal Diagnosis Abdominal pain secondary to peptic ulcer disease Discharge Exam General: Awake, conversant Heart: S1, S2/regular rate and rhythm, no murmur rubs or gallops Lungs: Clear to auscultation bilaterally. Normal effort Abdomen: Soft/nondistended. Mild tenderness to palpation in the epigastric region and right upper quadrant area. No rebound, rigidity or guarding. Obese abdomen. No hepatosplenomegaly Extremities: No clubbing/cyanosis. No edema Behavior: Appropriate, cooperative Discharge Data Allergies Allergy/AdvReac Type Severity Reaction Status Date / Time pneumococcal 7-valent Allergy Swelling Verified 11/26/22 08:41 conjugate to of [From Prevnar] Lip/Tongue/Throat Consultations 11/23/22 12:42 Consult Nephrology Routine 11/23/22 14:06 ED Decision to Admit Stat 11/23/22 17:49 Consult General Surgery Routine 11/24/22 08:08 Consult Gastroenterology Routine 11/26/22 14:09 Consult [facility] anatomy teacher Routine Procedures Performed Operation Date: 11/26/22 17:00 Actual Procedures p EGD Biopsy Cytology - Nik Rashid Case, DO Ordered Studies 11/23/22 10:41 CT abd pelvis wo con Stat 11/23/22 11:48 US gallbladder Stat Hospital Course (1) Abdominal pain: Patient presented with nausea/vomiting/diarrhea/right upper quadrant pain. Initially suspected cholecystitis CTA/P: Moderate gallbladder distention. No adjacent stranding. Cholecystitis not excluded. No bowel obstruction, and pole renal cysts Gallbladder ultrasound: Moderate gallbladder distention, no gallstones. No gallbladder wall thickening. A calculus cholecystitis cannot be excluded. Hepatomegaly with a 2.4 echogenic focus in left hepatic lobe noted, nonspecific and may be fat/hemangioma. May have routine nonemergent liver protocol MRI versus 3-6 months repeat ultrasound pending progression and stability HIDA scan finally ruled out cholecystitis Since cholecystitis was ruled out, GI performed an EGD on 11/26 which showed multiple nonbleeding gastric ulcers. Patient is on p.o. Protonix 40 mg twice daily. I will continue that. Started her on Carafate Discontinued IV Dilaudid Since acute cholecystitis was ruled out, will discontinue cefepime and Flagyl. Patient is tolerating solid meals Discharge today (2) Peptic ulcer disease: Most likely reason for her abdominal pain Multiple small gastric ulcers found on EGD done on 11/26 The patient is already on Protonix 40 mg p.o. twice daily Added Carafate Patient will follow-up with GI, GI to call patient for appointment (3) ESRD (end stage renal disease) on dialysis: Secondary to hypertension On Friday dialysis (4) Acute hyperkalemia: In the setting of ESRD with missed dialysis session EKG: Normal sinus rhythm, nonspecific T wave abnormality, QTc 428. Peaked T waves are present Patient was treated with insulin and dextrose. Was later dialyzed on 11/23 Potassium within normal limits now (5) Dysuria: Noted that urinalysis and urine culture has been ordered Remains uncollected Patient most likely does not produce as much urine as she has ESRD. (6) Elevated troponin: - HS-trop 29 on admit. Troponin flat - No chest pain - Echo on 11/24 showed no wall motion abnormalities Likely demand ischemia secondary to ESRD (7) Hypertension: - Continue labetalol, amlodipine with holding parameters Blood pressure stable (8) IBS (irritable bowel syndrome): Previously on for Baresel 100 mg twice daily (9) Lumbar radiculopathy: Follows with neurology Amitriptyline Gabapentin, Fall precautions Plan Abnormal MRI, prior concern for demyelinative disease Chronic nonspecific white matter changes noted, following with neurology DVT prophylaxis: SCDs CODE STATUS: Full code Total Time Total Time Spent Total Time Spent (In Minutes): 35 Discharge Plan Discharge Items Patient Disposition: Home - Self-Care Reason For Visit: HYPERKALEMIA, SUSPECTED XUAN Discharge Diagnosis: Abdominal pain due to peptic ulcer disease Activity: Resume your previous activity Non-emergency contact: Primary Care Provider Call non-emergency contact if: your symptoms worsen Follow-up/Referrals: Jacques Zhang III, CRNP [Primary Care Provider] - 12/03/22 9:20 am (Please arrive 15 minutes prior to appointment time) Bryson Stafford MD [Physician] - (This office will reach out to you to schedule hospital follow up) Diet: Dialysis Renal Addtl Attending Provider Instructions: Advised to follow-up with PCP in 1 week Advised to follow-up with GI in 1 month. The GI office will call you to schedule your appointment Pending Studies at Discharge: No Stand-Alone Forms: My [facility] [employer] Medications and DC Order Prescriptions: New sucralfate 100 mg/mL Suspension 1 g PO QID Qty: 414 0RF Continued atorvastatin [Lipitor] 10 mg tablet 10 mg PO QPM Qty: 90 1RF gabapentin 100 mg capsule 100 mg PO TID Qty: 90 5RF amitriptyline 50 mg tablet 50 mg PO HS 30 Days Qty: 30 5RF Viberzi 100 mg tablet 100 mg PO BID Qty: 60 5RF Rx Instructions: must administer with a meal/food medroxyprogesterone 150 mg/mL suspension 150 mg IM .q12wk Qty: 1 3RF promethazine 25 mg tablet 25 mg PO Q6H PRN (Reason: nausea and vomiting) Qty: 30 0RF cyclobenzaprine 5 mg tablet 5 mg PO HS PRN (Reason: muscle spasm) Qty: 30 5RF loperamide 2 mg capsule 2 mg PO Q4H MDD 16MG PRN (Reason: loose stool) Qty: 60 0RF Rx Instructions: after each loose stool until symptoms controlled;do not exceed 16 mg total dose in 24 hrs rizatriptan 10 mg tablet,disintegrating 10 mg PO Q2H PRN (Reason: migraine headache) Qty: 12 3RF Rx Instructions: do not exceed 3 doses per 24 hrs calcium acetate(phosphat bind) 667 mg Capsule 2,001 mg PO TIDM cinacalcet 30 mg tablet 30 mg PO DAILY Rx Instructions: take with largest meal of day labetalol 200 mg tablet 800 mg PO TID Rx Instructions: TAKE 4 TABLETS THREE TIMES DAILY amlodipine 5 mg tablet 5 mg PO DAILY Rx Instructions: Take 1 tablet by mouth every morning pantoprazole 40 mg tablet,delayed release (DR/EC) 40 mg PO BID Rx Instructions: TAKE 1 TAB BY MOUTH TWICE DAILY triamcinolone acetonide 0.1 % ointment 1 applic topical BID Rx Instructions: APPLY TWICE DAILY DIRECTED sumatriptan succinate 6 mg/0.5 mL pen injector 6 mg subcut .COMPLEX PRN (Reason: Headache) Rx Instructions: 6 mg subcut at onset of headache may repeat in 2 hours, max 2 injections per day no more than 2 days per week; Discontinued cefdinir 300 mg capsule 300 mg PO BID 10 Days Qty: 20 0RF cephalexin 250 mg capsule 250 mg PO BID 3 Days Qty: 6 5RF famotidine 20 mg tablet 20 mg PO BID Qty: 20 0RF Discharge Orders: Discharge Order (Routine); Ordered 11/27/22 Ordered By: Justina Valerio Admission Data Admit Date/Time: 11/23/22 13:36 Attending Provider: Justina Valerio Admit Provider: Jordan Morrison Primary Care Provider: Jacques Zhang III Other Providers: Ky Crawford ; Jordan Morrison ; Jie Titus ; Ning Hernandez ; Nik Taylor ; Eloise Nelson ; Bree Suarez ; Demetria Maldonado ; Suellen Quiroz ; Bryson Stafford ; Cisco Soliz ; Sheng Sneed ; Hector Chen ; Nando Nowak ; Dulce Srinivasan ; Michelle Diamond ; Pina Patiño ; Tiffanie Meraz ; Alexandr Moreno ; William Torres ; Martin Arceo ; Lucila Oropeza ; Ann Marie Dudley Jr Coding Level of Care Code 97790 INP/OBS DISCH >30 MIN Diagnoses Abdominal pain R10.84 Abdominal location: generalized Peptic ulcer disease K27.9 ESRD (end stage renal disease) on dialysis N18.6; Z99.2 Acute hyperkalemia E87.5 Dysuria R30.0 Elevated troponin R77.8 Hypertension I10 IBS (irritable bowel syndrome) K58.9 Lumbar radiculopathy M54.16
[2022-11-27 10:13] VITALS: BP 129/75
== END 2022-11-27 11:19 | disposition home or self-care (01) | DRG 391 ==
LOC: ED 10:29 → SUATTDRO 13:36 → EDINP 13:36 → 2E 17:59

== ENCOUNTER 2024-07-22 19:00 | Inpatient (IN) ==
--- NOTE | 2024-07-22 19:23 | Emergency Department Note ---
Impression & Plan Vomiting, Leukocytosis, Diffuse abdominal pain, UTI (urinary tract infection), Hypertension, Dialysis patient ED Provider Note NAME: MARIUM TREJO AGE: 43 SEX: F : 1980 ARRIVES VIA: Ambulance INFORMANT: [Patient] ED PROVIDER(S): [Arian Wilson MD] CHIEF COMPLAINT: Abdominal pain HISTORY OF PRESENT ILLNESS: The patient is a 43-year-old female who states that this morning, she vomited. She went to dialysis thinking she would feel better after but after dialysis, things were no better. She began vomiting and noticed some lower abdominal pain. She still makes some urine despite dialysis and when she urinated today, it burned. The patient states she had a little bit of diarrhea yesterday, no diarrhea today. She has not had fever but she has felt some chills. She is not short of breath, no cough or congestion. The patient states that dialysis today was on schedule and went without complication. PMHx/PSHx/Social Hx: See Below PHYSICAL EXAM: GENERAL: Patient is in no acute distress. HEENT: No acute trauma, normocephalic atraumatic, mucous membranes moist, no nasal congestion. NECK: No stridor, no adenopathy, no meningismus, trachea is midline. LUNGS: Clear to auscultation bilaterally, no wheeze, no rhonchi, breath sounds equal. HEART: Without murmurs gallops or rubs, regular rate and rhythm. Heart tones distant. ABDOMEN: Soft, mildly diffusely tender abdomen, no distention or rebound. EXTREMITIES: No cyanosis, full range of motion of all the joints without pain or difficulty. NEUROLOGIC: Oriented x 3, no acute motor or sensory deficits, no focal weakness. SKIN: No jaundice, no diaphoresis. DIFFERENTIAL DIAGNOSIS: Bowel obstruction, viral illness, electrolyte imbalance, GA, UTI, among others EMERGENCY DEPARTMENT PROCEDURES: MEDICAL DECISION MAKING: There is a mild leukocytosis, this could be consistent with infection or potentially just her vomiting. The patient was anemic however, this is a baseline finding when looking back at previous testing. There was a normal platelet count. There was a high creatinine consistent with her dialysis need. The potassium was normal. No concerning liver enzyme elevation. No evidence for pancreatitis. testing was negative. Urinalysis does suggest infection, urine culture is pending. Abdominal and pelvis CT did not show any bowel obstruction or acute surgical pathology. ECG showed a normal sinus rhythm, no acute ST elevation. Cardiac enzyme testing x 2 is slightly elevated but stable, no evidence for acute cardiac injury based on the troponin values. Chest x-ray does not show pneumonia or free air, cardiomegaly was seen. The patient received IV labetalol because of her high blood pressure. She apparently had missed her labetalol dosing because of her persistent vomiting. She was given IV ceftriaxone as antibiotic coverage. She was given IV morphine, a second dose of IV morphine was given. She was given IV Zofran. Patient persists with some abdominal discomfort but she does feel improved. She remains hypertensive. Given her vomiting, given her dialysis need, given her leukocytosis, given the UTI findings, given the hypertension and her inability to take oral meds, I do believe a hospital stay would be warranted. I did speak with case management, the on-call hospitalist was consulted. Prior/Outside records/notes reviewed: Today's EMS notes describing her presentation and transport to this hospital. ECG per my interpretation: Indication was abdominal pain. The ECG shows a normal sinus rhythm with a rate of 96. There is a potential old inferior infarct. There is a potential old anterior lateral infarct. There is no acute ST elevation, no PVCs. The QTc is 457. Continuous Cardiac Monitoring per my interpretation: An order was placed for continuous cardiac monitoring. The monitor shows a rate of 96 with normal sinus rhythm. Imaging/x-ray results per my interpretation: Chest x-ray shows cardiomegaly, no focal infiltrate, no free air. Chronic Medical/Social conditions affecting care: Dialysis patient. Care/Management discussed with: Case management, the on-call hospitalist. Level of care consideration(s): After review of the information above and other included data: --I believe the patient requires escalation of care to admission DISPOSITION: Admission Past Med/Surg History Problem List Dialysis patient (Acute) Hypertension (Acute) UTI (urinary tract infection) (Acute) Diffuse abdominal pain (Acute) Leukocytosis (Acute) Vomiting (Acute) Vulvitis Internal hemorrhoids Encounter for pre-operative examination Vaginal itching Iron deficiency anemia Complex renal cyst Recurrent infective cystitis Recurrent infections Carpal tunnel syndrome on both sides Polyneuropathy Iron deficiency Colon cancer screening Idiopathic polyneuropathy Liver lesion, left lobe Peptic ulcer disease Weakness (Acute) Nausea & vomiting (Acute) ESRD (end stage renal disease) on dialysis (Acute) Abdominal pain (Acute) Paresthesia Bilateral sciatica Lower back pain Routine gynecological examination Bloating Dysmenorrhea Menorrhagia Myalgia Flank pain Urinary urgency Sensation of pressure in bladder area Demyelinating disease Migraine Abnormal MRI End stage renal disease on dialysis Balance problem New onset headache Abnormal CT of brain Recurrent urinary tract infection Nausea Intractable nausea and vomiting Left kidney mass (Acute) Hypercholesterolemia (Chronic) End stage renal disease (Chronic) Asthma (Chronic) no issues currently Low thyroid stimulating hormone (TSH) level (Chronic) Recurrent UTI (Chronic) Vitamin D deficiency (Chronic) Secondary hyperparathyroidism of renal origin (Chronic) CKD (chronic kidney disease) requiring chronic dialysis (Chronic) Chronic renal failure (Chronic) Psoriasis (Chronic) Eczema (Chronic) Irritable bowel syndrome with diarrhea (Chronic) GERD (gastroesophageal reflux disease) End-stage renal disease on hemodialysis dialysis tue/thur/sat--follows with Dr. Crawford Chronic back pain (Chronic) Depression with anxiety (Chronic) LVH (left ventricular hypertrophy) (Chronic) Renal cyst (Chronic) Medical History Recurrent UTI (urinary tract infection) currently on Cefdinir Bilateral carpal tunnel syndrome Hx of migraines Iron deficiency anemia Hyperlipidemia History of asthma PUD (peptic ulcer disease) Hx of renal calculi Lumbar radiculopathy Morbid obesity with BMI of 45.0-49.9, adult Hypertension History of gastric ulcer A-V fistula right arm Surgical History H/O tubal ligation History of abdominoplasty repair skin around scar History of section x4 History of esophagogastroduodenoscopy (EGD) History of wisdom tooth extraction Family History Mother Family history of diabetes mellitus Sister Family history of diabetes mellitus x3 Aunt Heart disease Father Family history of kidney disease Other No family history of adverse response to anesthesia Denies family history of Pancreatic cancer Ovarian cancer Prostate cancer Myocardial infarction Breast cancer Colorectal cancer Uterine cancer Social History Smoking Status: Never smoker Second Hand Exposure: No; Do You Dip or Chew Tobacco: No; Hx Alcohol Use: No Hx Substance Use: Yes Prescribed Medications: Marijuana Preferred Language: Syriac Communication Ability: Effective Visual Impairment: No Limitations Hearing Ability: Normal 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 Beliefs That Will Affect Care: None marital status: Single Current Living Situation: Family Current Living Situation Comment: Lives with 2 kids current occupational status: disabled How many Children do You have: 3 Feels Safe at Home: Yes Childhood Exposure to Second-Hand Smoke: No Diet: regular caffeine: Yes during the past year weight has: decreased > 10 lbs Dental Care, Regularly: Yes Physical Activity Frequency: Daily Seatbelt Use: always Sunscreen Use: Yes Assistive Devices: None Allergies Allergies Allergy/AdvReac Type Severity Reaction Status Date / Time pneumococcal 7-valent Allergy Severe Swelling Verified 06/07/24 09:59 conjugate to of [From Prevnar] Lip/Tongue/Throat Home Meds Home Medications Medication Instructions Recorded Confirmed calcium acetate(phosphat bind) 667 2,001 mg PO TIDM 09/30/18 07/22/24 mg capsule cinacalcet 30 mg tablet 30 mg PO QAM 08/02/20 07/22/24 amlodipine 5 mg tablet 5 mg PO QAM 11/23/22 07/22/24 linaclotide 145 mcg capsule 145 mcg PO QPM PRN Constipation 12/02/23 07/22/24 (Linzess) amitriptyline 50 mg tablet 50 mg PO HS 07/22/24 07/22/24 Previous Rx's Medication Instructions Recorded atorvastatin 10 mg tablet (Lipitor) 10 mg PO QPM #90 tabs 03/08/20 pantoprazole 40 mg tablet,delayed 40 mg PO BID 90 days #180 tabs 11/07/23 release rizatriptan 10 mg disintegrating 10 mg PO Q2H PRN migraine headache 12/17/23 tablet (Maxalt-[employer]ASSIS) 30 days #9 tabs sumatriptan succinate 6 mg/0.5 mL 6 mg (0.5 mL) subcut UD PRN 12/17/23 subcutaneous pen injector (Imitrex Headache #1 mL STATdose Pen) gabapentin 100 mg capsule 100 mg PO .COMPLEX #120 caps 03/01/24 triamcinolone acetonide 0.1 % 1 applic topical TID #15 grams 06/07/24 topical ointment dicyclomine 10 mg capsule 10 mg PO TID PRN abdominal pain 06/28/24 #30 caps labetalol 200 mg tablet 800 mg (4 x 200 mg) PO TID #360 07/20/24 tabs Results & Data (ED) Vital Signs Vital Signs - 24 hr 07/22/24 19:10 07/22/24 19:18 07/22/24 19:18 Temperature 36.9 C Temperature Source Oral Pulse Rate 119 H 96 H Pulse Rate from SpO2 Sensor Respiratory Rate 20 Respiratory Effort / Characteristics Non-Labored Respiratory Depth Normal Respiratory Pattern Regular Blood Pressure 135/110 H Blood Pressure Mean 118 Pulse Oximetry 100 97 Oxygen Delivery Method Room Air Room Air Sepsis Recent Fever Within 48 Hours No Sepsis New/Unexplained Change in Mental Status N/A Sepsis Action Taken by Nursing No Action Required 07/22/24 19:30 07/22/24 19:36 07/22/24 19:36 Temperature Temperature Source Pulse Rate 95 H 104 H Pulse Rate from SpO2 Sensor 96 H Respiratory Rate 17 19 Respiratory Effort / Characteristics Respiratory Depth Respiratory Pattern Blood Pressure 147/102 H Blood Pressure Mean 115 Pulse Oximetry 99 Oxygen Delivery Method Sepsis Recent Fever Within 48 Hours Sepsis New/Unexplained Change in Mental Status Sepsis Action Taken by Nursing 07/22/24 20:12 07/22/24 20:30 07/22/24 20:30 Temperature Temperature Source Pulse Rate 100 H 102 H Pulse Rate from SpO2 Sensor 100 H 102 H Respiratory Rate 22 22 Respiratory Effort / Characteristics Respiratory Depth Respiratory Pattern Blood Pressure 154/122 H Blood Pressure Mean 132 Pulse Oximetry 98 99 Oxygen Delivery Method Sepsis Recent Fever Within 48 Hours Sepsis New/Unexplained Change in Mental Status Sepsis Action Taken by Nursing 07/22/24 21:06 07/22/24 21:33 07/22/24 21:34 Temperature Temperature Source Pulse Rate 98 H 97 H Pulse Rate from SpO2 Sensor 99 H 96 H Respiratory Rate 23 21 Respiratory Effort / Characteristics Respiratory Depth Respiratory Pattern Blood Pressure 131/92 Blood Pressure Mean 102 Pulse Oximetry 96 100 Oxygen Delivery Method Room Air Room Air Sepsis Recent Fever Within 48 Hours Sepsis New/Unexplained Change in Mental Status Sepsis Action Taken by Nursing 07/22/24 21:39 07/22/24 21:51 07/22/24 21:56 Temperature Temperature Source Pulse Rate 99 H 90 91 H Pulse Rate from SpO2 Sensor 99 H 91 H Respiratory Rate 22 20 Respiratory Effort / Characteristics Respiratory Depth Respiratory Pattern Blood Pressure 153/107 H Blood Pressure Mean Pulse Oximetry 95 96 Oxygen Delivery Method Sepsis Recent Fever Within 48 Hours Sepsis New/Unexplained Change in Mental Status Sepsis Action Taken by Nursing 07/22/24 22:14 07/22/24 22:30 07/22/24 22:33 Temperature Temperature Source Pulse Rate 92 H Pulse Rate from SpO2 Sensor 89 Respiratory Rate 18 Respiratory Effort / Characteristics Respiratory Depth Respiratory Pattern Blood Pressure 116/92 124/86 Blood Pressure Mean 98 Pulse Oximetry 97 Oxygen Delivery Method Room Air Sepsis Recent Fever Within 48 Hours Sepsis New/Unexplained Change in Mental Status Sepsis Action Taken by Long-Term Medications Current Medication List: was personally reviewed by me Laboratory Data Attestation: I reviewed the patient's lab results. 07/22/24 19:14 07/22/24 19:14 Lab Results 07/22/24 07/22/24 07/22/24 Range/Units 19:14 19:28 21:11 WBC 11.42 H (4.8-10.8) K/ul RBC 3.47 L (4.20-5.40) M/uL Hgb 10.2 L (12.0-16.0) g/dl Hct 32.3 L (37.0-47.0) % MCV 93.1 (80.0-100.0) fL MCH 29.4 (25.0-34.0) pg MCHC 31.6 L (32.0-36.0) g/dL RDW Std Deviation 54.4 H (36.4-46.3) fL RDW Coeff of Hosea 16.0 H (11.5-14.5) % Plt Count 277 (130-400) K/uL MPV 9.6 (9.4-12.4) fL Immature Gran % (Auto) 0.4 % Neut % (Auto) 80.6 % Lymph % (Auto) 10.2 % [place] % (Auto) 6.3 % Eos % (Auto) 2.1 % Baso % (Auto) 0.4 % Neut # (Auto) 9.21 H (1.40-6.50) K/uL Lymph # (Auto) 1.16 L (1.20-3.40) K/uL Milam # (Auto) 0.72 H (0.11-0.59) K/uL Eos # (Auto) 0.24 (0.00-0.50) K/uL Baso # (Auto) 0.04 (0.00-0.20) K/uL Immature Gran # (Auto) 0.05 (0.01-0.20) K/uL Sodium 137 (136-145) mmol/L Potassium 3.9 (3.5-5.1) mmol/L Chloride 93 L (98-107) mmol/L Carbon Dioxide 26 (21-32) mmol/L Anion Gap 18 H (3-11) BUN 17 (6-23) mg/dl Creatinine 6.33 H* (0.6-1.2) mg/dl Est Cr Clr Drug Dosing 13.9 ml/min eGFR 7.78 BUN/Creatinine Ratio 2.7 L (10-20) Glucose 93 (70-99(Fasting)) mg/dl Calcium 10.0 (8.6-10.3) mg/dl Phosphorus 3.1 (2.5-4.9) mg/dl Magnesium 1.7 (1.7-2.4) mg/dl Total Bilirubin 0.4 (0.2-1.0) mg/dl AST 15 (13-39) U/L ALT 10 (7-52) U/L Alkaline Phosphatase 140 H (34-104) U/L Troponin I High Sens 39.1 H 37.3 H (0-14) pg/ml Total Protein 8.2 (6.0-8.3) gm/dl Albumin 4.6 (3.4-5.0) gm/dl Globulin 3.6 (2.5-4.0) gm/dl Albumin/Globulin Ratio 1.3 (0.9-2) Lipase 17 (11-82) U/L HCG, Qual Negative (Negative) Urine Color Yellow Urine Appearance Clear (Clear) Urine pH 6.0 (4.5-7.5) Ur Specific [place] 1.020 (1.000-1.030) Urine Protein 2+ H (Negative) Urine Glucose (UA) Negative (Negative) Urine Ketones Negative (Negative) Urine Blood Trace-intact H (Negative) Urine Nitrite Negative (Negative) Urine Bilirubin 1+ H (Negative) Urine Urobilinogen Negative (Negative) Ur Leukocyte Esterase 1+ H (Negative) Urine RBC 3-5 H (0-2) /hpf Urine WBC 21-50 H (0-5) /hpf Ur Epithelial Cells >20 H (0-2) /hpf Urine Bacteria None Seen (None Seen) Administered Medications Discontinued Medications Ceftriaxone Sodium (Rocephin) 2,000 mg in 50 mls @ 100 mls/hr IV NOW STA Stop: 07/22/24 20:52 Last Infusion: 07/22/24 21:14 Dose: Infused Documented By: Admin: 07/22/24 20:36 Dose: 100 mls/hr Documented By: VLADIMIR Labetalol HCl (Labetalol Hcl Iv 5 Mg/Ml 20ml) 10 mg IV NOW STA Stop: 07/22/24 21:49 Last Admin: 07/22/24 21:56 Dose: 10 mg Documented By: VLADIMIR Morphine Sulfate (Morphine Sulfate 4 Mg/Ml 1 Ml Carp\Vial) 4 mg IV NOW STA Stop: 07/22/24 19:18 Last Admin: 07/22/24 19:34 Dose: 4 mg Documented By: VLADIMIR Morphine Sulfate (Morphine Sulfate 2 Mg/Ml Carp) 2 mg IV NOW STA Stop: 07/22/24 21:49 Last Admin: 07/22/24 21:57 Dose: 2 mg Documented By: VLADIMIR Ondansetron HCl (Ondansetron Inj 2 Mg/Ml 2 Ml Vial) 4 mg IV NOW STA Stop: 07/22/24 19:18 Last Admin: 07/22/24 19:35 Dose: 4 mg Documented By: VLADIMIR Imaging Data Radiologist's Impression: Abdomen/Pelvis CT 07/22/24 19:17 Exam(s): CT ABDOMEN + PELVIS Without Contrast EXAM: CT Abdomen and Pelvis Without Intravenous Contrast CLINICAL HISTORY: Reason for exam: lower abd pain, dialysis. TECHNIQUE: Axial computed tomography images of the abdomen and pelvis without intravenous contrast. CTDI is 27.79 mGy and DLP is 1446.64 mGy-cm. Automated exposure control was utilized for the study. A dose lowering technique was utilized adhering to the principles of ALARA. COMPARISON: February 26, 2024 FINDINGS: Limitations: Exam limited secondary to lack of IV contrast. Lung bases: Unremarkable. No mass. No consolidation. ABDOMEN: Liver: Hepatomegaly. Gallbladder and bile ducts: Unremarkable. No calcified stones. No ductal dilation. Pancreas: Unremarkable. No ductal dilation. Spleen: Unremarkable. No splenomegaly. Adrenals: Unremarkable. No mass. Kidneys and ureters: And unchanged from prior exam. Nonobstructing bilateral intrarenal calculi. No hydronephrosis. Innumerable bilateral renal hypodensities likely representing cysts. Stomach and bowel: Unremarkable. No obstruction. No mucosal thickening. PELVIS: Appendix: No findings to suggest acute appendicitis. Bladder: Unremarkable. No stones. Reproductive: Uterus is surgically absent. ABDOMEN and PELVIS: Intraperitoneal space: Unremarkable. No free air. No significant fluid collection. Bones/joints: No acute fracture. No dislocation. Soft tissues: Unremarkable. Vasculature: Unremarkable. No abdominal aortic aneurysm. Lymph nodes: Unremarkable. No enlarged lymph nodes. IMPRESSION: No acute findings in the abdomen or pelvis. Nonobstructing bilateral intrarenal calculi Electronically signed by: Stan Marks MD 07/22/24 21:34 PM Chest X-Ray 07/22/24 19:18 Exam(s): XR CXR 1 VIEW EXAM: XR Chest, 1 View CLINICAL HISTORY: Reason for exam: abd pain. TECHNIQUE: Frontal view of the chest. COMPARISON: November 23, 2022 FINDINGS: Lungs: Unremarkable. No consolidation. Pleural space: Unremarkable. No pneumothorax. Heart: cardiomegaly. Mediastinum: Unremarkable. Normal mediastinal contour. Bones/joints: Unremarkable. No acute fracture. IMPRESSION: No acute findings in the chest. Stable cardiomegaly Electronically signed by: Stan Marks MD 07/22/24 21:30 PM Discharge Plan Visit Data Chief Complaint: Abdominal Pain Stated Complaint: N/V, UTI ED Provider: Arian Wilson Discharge Problem: Vomiting, Leukocytosis, Diffuse abdominal pain, UTI (urinary tract infection), Hypertension, Dialysis patient Patient Disposition: Admitted As Inpatient Condition: Fair Discharge Problem: Vomiting Qualifiers: Vomiting type: unspecified Nausea presence: with nausea Qualified Code(s): R 11.2 - Nausea with vomiting, unspecified Leukocytosis Qualifiers: Leukocytosis type: unspecified Qualified Code(s): D72.829 - Elevated white blood cell count, unspecified UTI (urinary tract infection) Qualifiers: Urinary tract infection type: acute cystitis Hematuria presence: without hematuria Qualified Code(s): N30.00 - Acute cystitis without hematuria Hypertension Qualifiers: Hypertension type: unspecified Qualified Code(s): I10 - Essential (primary) hypertension
[2024-07-22] MEDS: MoRPHine SULFATE 4 MG/ML 1 ML CARP\\VIAL IV STA (19:34)
[2024-07-22] MEDS: ONDANSETRON INJ 2 MG/ML 2 ML VIAL IV STA (19:35)
[2024-07-22 19:51] LABS: Basophils # (auto) 0.04 K/uL (0.00-0.20); Basophils % (auto) 0.4 %; Eosinophils # (auto) 0.24 K/uL (0.00-0.50); Eosinophils % (auto) 2.1 %; Hematocrit (blood only) 32.3 % (37.0-47.0); Hemoglobin 10.2 g/dl (12.0-16.0); Immature Granulocytes # (auto) 0.05 K/uL (0.01-0.20); Immature Granulocytes % (auto) 0.4 %; Lymphocytes # (auto) 1.16 K/uL (1.20-3.40); Lymphocytes % (auto) 10.2 %; Mean Corpuscular Hemoglobin 29.4 pg (25.0-34.0); Mean Corpuscular Hgb Conc 31.6 g/dL (32.0-36.0); Mean Corpuscular Volume 93.1 fL (80.0-100.0); Mean Platelet Volume 9.6 fL (9.4-12.4); Monocytes # (auto) 0.72 K/uL (0.11-0.59); Monocytes % (auto) 6.3 %; Neutrophils # (auto) 9.21 K/uL (1.40-6.50); Neutrophils % (auto) 80.6 %; Platelet Count 277 K/uL (130-400); RDW Standard Deviation 54.4 fL (36.4-46.3); Red Blood Count 3.47 M/uL (4.20-5.40); White Blood Count 11.42 K/ul (4.8-10.8)
[2024-07-22 20:03] LABS: Appearance Urine Clear (Clear); Bilirubin Urine 1+ (Negative); Blood Urine Trace-intact (Negative); Color Urine Yellow; Glucose Urine UA Negative (Negative); Ketones Urine Negative (Negative); Leukocyte Esterase Urine 1+ (Negative); Nitrite Urine Negative (Negative); Protein Urine 2+ (Negative); Urobilinogen Urine Negative (Negative)
[2024-07-22 20:07] LABS: Pregnancy Test, Serum Negative (Negative)
[2024-07-22 20:08] LABS: Albumin Globulin Ratio 1.3 (0.9-2); Albumin Level 4.6 gm/dl (3.4-5.0); BUN Creatinine Ratio 2.7 (10-20); Bilirubin,Total 0.4 mg/dl (0.2-1.0); Creatinine Clr Calc Pharmacy 13.9 ml/min; Globulin 3.6 gm/dl (2.5-4.0); Magnesium 1.7 mg/dl (1.7-2.4); Phosphorus 3.1 mg/dl (2.5-4.9); Potassium 3.9 mmol/L (3.5-5.1); Total Protein 8.2 gm/dl (6.0-8.3); Troponin I High Sensitivity 39.1 pg/ml (0-14)
[2024-07-22 20:19] LABS: Epithelial Cell Urine >20 /hpf (0-2)
[2024-07-22 20:20] LABS: Bacteria Urine None Seen (None Seen); WBC Urine 21-50 /hpf (0-5)
[2024-07-22] MEDS: cefTRIAXone SODIUM 2,000 MG/50 ML BAG IV STA (20:36)
--- NOTE | 2024-07-22 21:31 | XRay Report ---
Exam(s): XR CXR 1 VIEW EXAM: XR Chest, 1 View CLINICAL HISTORY: Reason for exam: abd pain. TECHNIQUE: Frontal view of the chest. COMPARISON: November 23, 2022 FINDINGS: Lungs: Unremarkable. No consolidation. Pleural space: Unremarkable. No pneumothorax. Heart: cardiomegaly. Mediastinum: Unremarkable. Normal mediastinal contour. Bones/joints: Unremarkable. No acute fracture. IMPRESSION: No acute findings in the chest. Stable cardiomegaly Electronically signed by: Stan Marks MD 07/22/24 21:30 PM
--- NOTE | 2024-07-22 21:35 | CT Scan Report ---
Exam(s): CT ABDOMEN + PELVIS Without Contrast EXAM: CT Abdomen and Pelvis Without Intravenous Contrast CLINICAL HISTORY: Reason for exam: lower abd pain, dialysis. TECHNIQUE: Axial computed tomography images of the abdomen and pelvis without intravenous contrast. CTDI is 27.79 mGy and DLP is 1446.64 mGy-cm. Automated exposure control was utilized for the study. A dose lowering technique was utilized adhering to the principles of ALARA. COMPARISON: February 26, 2024 FINDINGS: Limitations: Exam limited secondary to lack of IV contrast. Lung bases: Unremarkable. No mass. No consolidation. ABDOMEN: Liver: Hepatomegaly. Gallbladder and bile ducts: Unremarkable. No calcified stones. No ductal dilation. Pancreas: Unremarkable. No ductal dilation. Spleen: Unremarkable. No splenomegaly. Adrenals: Unremarkable. No mass. Kidneys and ureters: And unchanged from prior exam. Nonobstructing bilateral intrarenal calculi. No hydronephrosis. Innumerable bilateral renal hypodensities likely representing cysts. Stomach and bowel: Unremarkable. No obstruction. No mucosal thickening. PELVIS: Appendix: No findings to suggest acute appendicitis. Bladder: Unremarkable. No stones. Reproductive: Uterus is surgically absent. ABDOMEN and PELVIS: Intraperitoneal space: Unremarkable. No free air. No significant fluid collection. Bones/joints: No acute fracture. No dislocation. Soft tissues: Unremarkable. Vasculature: Unremarkable. No abdominal aortic aneurysm. Lymph nodes: Unremarkable. No enlarged lymph nodes. IMPRESSION: No acute findings in the abdomen or pelvis. Nonobstructing bilateral intrarenal calculi Electronically signed by: Stan Marks MD 07/22/24 21:34 PM
[2024-07-22] MEDS: LABETALOL HCL IV 5 MG/ML 20ML IV STA (21:56)
[2024-07-22] MEDS: MoRPHine SULFATE 2 MG/ML CARP IV STA (21:57)
--- NOTE | 2024-07-22 22:40 | History & Physical Report ---
Date of Service July 22, 2024 Assessment & Plan (1) Nausea vomiting and diarrhea: Plan: 43yo female with history of ESRD on HD presenting with several days of nausea, vomiting, diarrhea, PO intolerance and lower abdominal pain. Patient feels that her symptoms are likely secondary to UTI, however, UA with pyuria, >20 epithelial cells and no bacteria - culture is pending. She did receive 2gm of Ceftriaxone in the ER. No recent antibiotic use, no sick contacts. Suspect viral process, ?gastroenteritis -Observation to medical -Check stool PCR -Check Lactate and VBG -Repeat LFTs in AM - elevation of AP possibly secondary to vomiting? -Zofran PRN -Protonix 40mg po BID -Dilaudid 0.25mg IV q 6 hours PRN -Continue Dicyclomine at home dose for abdominal pain -Continue Gabapentin at home dose (2) Dialysis patient: Plan: Patient with ESRD on HD q T/R/S. Received full treatment today. Electrolytes are favorable at present. Patient does still urinate. -Continue Cinacalcet -Continue Phoslo -Patient will need Nephrology consultation for HD if she is here on Friday (3) Hypertension: Plan: Chronic. Elevated BP upon arrival - patient received IV Labetalol with improved blood pressure -Continue Labetalol 800mg po TID. If patient unable to tolerate PO will transfer to monitored unit for IV BB scheduled -Continue Amlodipine -Monitor BP (4) UTI (urinary tract infection): Plan: Possible UTI. UA with no bacteria. She received Ceftriaxone 2gm which should cover her x 24 hours. Cultures is pending -Follow culture Plan Hyperlipidemia -Continue Atorvastatin History of Present Illness Chief Complaint: abdominal pain Primary Care Provider: Jacques Zhang III, MICHAELA Astrid Gallardo is a pleasant 43yo female with history of ESRD on HD, HTN, PUD presenting with ongoing abdominal pain, nausea, vomiting and PO intolerance. Patient reports she started feeling ill with lower abdominal pain/cramping, dysuria, nausea, vomiting and inability to tolerate PO on 07/19/24. Her symptoms have been persistent with worsening lower abdominal pain. She did go to HD today and had a full treatment. She had two episodes of vomiting today and was unable to take her medications. Patient also with several episodes of diarrhea, non-bloody and chills. She denies chest pain, palpitations, cough, back pain In the ER she is afebrile, hypertensive Given Morphine for pain with improvement ER Course: Morphine 4mg IV + 2mg IV Labetalol 10mg IV Ceftriaxone 2gm IV Zofran 4mg IV Allergies Allergy/AdvReac Type Severity Reaction Status Date / Time pneumococcal 7-valent Allergy Severe Swelling Verified 06/07/24 09:59 conjugate to of [From Prevnar] Lip/Tongue/Throat Home Medications Medication Instructions Recorded Confirmed Type calcium acetate(phosphat bind) 667 2,001 mg PO TIDM 09/30/18 07/22/24 History mg capsule atorvastatin 10 mg tablet (Lipitor) 10 mg PO QPM #90 tabs 03/08/20 07/22/24 Rx cinacalcet 30 mg tablet 30 mg PO QAM 08/02/20 07/22/24 History amlodipine 5 mg tablet 5 mg PO QAM 11/23/22 07/22/24 History pantoprazole 40 mg tablet,delayed 40 mg PO BID 90 days #180 tabs 11/07/23 07/22/24 Rx release linaclotide 145 mcg capsule 145 mcg PO QPM PRN Constipation 12/02/23 07/22/24 History (Linzess) rizatriptan 10 mg disintegrating 10 mg PO Q2H PRN migraine headache 12/17/23 07/22/24 Rx tablet (Maxalt-HAND ALTERATIONS SEAMSTRESS) 30 days #9 tabs sumatriptan succinate 6 mg/0.5 mL 6 mg (0.5 mL) subcut UD PRN 12/17/23 07/22/24 Rx subcutaneous pen injector (Imitrex Headache #1 mL STATdose Pen) gabapentin 100 mg capsule 100 mg PO .COMPLEX #120 caps 03/01/24 07/22/24 Rx triamcinolone acetonide 0.1 % 1 applic topical TID #15 grams 06/07/24 07/22/24 Rx topical ointment dicyclomine 10 mg capsule 10 mg PO TID PRN abdominal pain 06/28/24 07/22/24 Rx #30 caps labetalol 200 mg tablet 800 mg (4 x 200 mg) PO TID #360 07/20/24 07/22/24 Rx tabs amitriptyline 50 mg tablet 50 mg PO HS 07/22/24 07/22/24 History Past Med/Surg History Problem List Dialysis patient (Acute) Hypertension (Acute) UTI (urinary tract infection) (Acute) Diffuse abdominal pain (Acute) Leukocytosis (Acute) Vomiting (Acute) Vulvitis Internal hemorrhoids Encounter for pre-operative examination Vaginal itching Iron deficiency anemia Complex renal cyst Recurrent infective cystitis Recurrent infections Carpal tunnel syndrome on both sides Polyneuropathy Iron deficiency Colon cancer screening Idiopathic polyneuropathy Liver lesion, left lobe Peptic ulcer disease Weakness (Acute) Nausea & vomiting (Acute) ESRD (end stage renal disease) on dialysis (Acute) Abdominal pain (Acute) Paresthesia Bilateral sciatica Lower back pain Routine gynecological examination Bloating Dysmenorrhea Menorrhagia Myalgia Flank pain Urinary urgency Sensation of pressure in bladder area Demyelinating disease Migraine Abnormal MRI End stage renal disease on dialysis Balance problem New onset headache Abnormal CT of brain Recurrent urinary tract infection Nausea Intractable nausea and vomiting Left kidney mass (Acute) Hypercholesterolemia (Chronic) End stage renal disease (Chronic) Asthma (Chronic) no issues currently Low thyroid stimulating hormone (TSH) level (Chronic) Recurrent UTI (Chronic) Vitamin D deficiency (Chronic) Secondary hyperparathyroidism of renal origin (Chronic) CKD (chronic kidney disease) requiring chronic dialysis (Chronic) Chronic renal failure (Chronic) Psoriasis (Chronic) Eczema (Chronic) Irritable bowel syndrome with diarrhea (Chronic) GERD (gastroesophageal reflux disease) End-stage renal disease on hemodialysis dialysis tue/thur/sat--follows with Dr. Crawford Chronic back pain (Chronic) Depression with anxiety (Chronic) LVH (left ventricular hypertrophy) (Chronic) Renal cyst (Chronic) Medical History Recurrent UTI (urinary tract infection) currently on Cefdinir Bilateral carpal tunnel syndrome Hx of migraines Iron deficiency anemia Hyperlipidemia History of asthma PUD (peptic ulcer disease) Hx of renal calculi Lumbar radiculopathy Morbid obesity with BMI of 45.0-49.9, adult Hypertension History of gastric ulcer A-V fistula right arm Surgical History H/O tubal ligation History of abdominoplasty repair skin around scar History of section x4 History of esophagogastroduodenoscopy (EGD) History of wisdom tooth extraction Family History Mother Family history of diabetes mellitus Sister Family history of diabetes mellitus x3 Aunt Heart disease Father Family history of kidney disease Other No family history of adverse response to anesthesia Denies family history of Pancreatic cancer Ovarian cancer Prostate cancer Myocardial infarction Breast cancer Colorectal cancer Uterine cancer Social History Smoking Status: Never smoker Second Hand Exposure: No; Do You Dip or Chew Tobacco: No; Hx Alcohol Use: No Hx Substance Use: Yes Prescribed Medications: Marijuana Preferred Language: Trinidadian Communication Ability: Effective Visual Impairment: No Limitations Hearing Ability: Normal Usability Strategist Required: No Beliefs That Will Affect Care: None marital status: Single Current Living Situation: Family Current Living Situation Comment: Lives with 2 kids current occupational status: disabled How many Children do You have: 3 Feels Safe at Home: Yes Childhood Exposure to Second-Hand Smoke: No Diet: regular caffeine: Yes during the past year weight has: decreased > 10 lbs Dental Care, Regularly: Yes Physical Activity Frequency: Daily Seatbelt Use: always Sunscreen Use: Yes Assistive Devices: None Review of Systems Review of Systems: All systems reviewed & are unremarkable except as noted in HPI & below Physical Exam Physical Exam: General: patient resting comfortably, NAD, non-toxic in appearance, AA&O x 4 Skin: warm, dry, intact, no rashes or lesions HEENT: NC/AT, PERRL, EOMI, anicteric sclera, conjunctiva without injection, external ear normal to inspection and nontender, nares patent, moist mucus membranes, dentition intact, no oropharyngeal lesions, neck supple, trachea midline, no LAD, no thyromegaly, no JVD Heart: +S1/S2, regular, no m/r/g Lungs: equal air entry bilaterally, no rales/rhonchi/wheezes Abd: +BS, soft, ND, tender in lower abdomen, suprapubic region with no rebound/guarding/peritonitis no masses/organomegaly/ascites Ext: warm, 2+ pulses in UE/LE bilaterally, no clubbing/cyanosis or edema, RUE with AV fistula with palpable thrill Neuro: nonfocal, patient AA&O x 4, speech intact, no facial droop, moving all extremities on command with equal strength 5/5 Results & Data Results & Data Vital Signs (Past 12 Hours) Vital Signs Temp Pulse Resp BP Pulse Ox O2 Del Method 07/22/24 22:14 92 H 116/92 07/22/24 21:56 91 H 153/107 H 07/22/24 21:34 131/92 07/22/24 21:33 97 H 21 100 Room Air 07/22/24 21:06 98 H 23 96 Room Air 07/22/24 20:30 154/122 H 07/22/24 20:30 102 H 22 99 07/22/24 20:12 100 H 22 98 07/22/24 19:36 104 H 19 99 07/22/24 19:36 147/102 H 07/22/24 19:30 95 H 17 07/22/24 19:18 97 Room Air 07/22/24 19:18 96 H 07/22/24 19:10 36.9 C 119 H 20 135/110 H 100 Room Air Laboratory Results Laboratory Results WBC 11.42 K/ul (4.8-10.8) H 07/22/24 19:14 RBC 3.47 M/uL (4.20-5.40) L 07/22/24 19:14 Hgb 10.2 g/dl (12.0-16.0) L 07/22/24 19:14 Hct 32.3 % (37.0-47.0) L 07/22/24 19:14 MCV 93.1 fL (80.0-100.0) 07/22/24 19:14 MCH 29.4 pg (25.0-34.0) 07/22/24 19:14 MCHC 31.6 g/dL (32.0-36.0) L 07/22/24 19:14 RDW Std Deviation 54.4 fL (36.4-46.3) H 07/22/24 19:14 RDW Coeff of Hosea 16.0 % (11.5-14.5) H 07/22/24 19:14 Plt Count 277 K/uL (130-400) 07/22/24 19:14 MPV 9.6 fL (9.4-12.4) 07/22/24 19:14 Immature Gran % (Auto) 0.4 % 07/22/24 19:14 Neut % (Auto) 80.6 % 07/22/24 19:14 Lymph % (Auto) 10.2 % 07/22/24 19:14 Boyd % (Auto) 6.3 % 07/22/24 19:14 Eos % (Auto) 2.1 % 07/22/24 19:14 Baso % (Auto) 0.4 % 07/22/24 19:14 Neut # (Auto) 9.21 K/uL (1.40-6.50) H 07/22/24 19:14 Lymph # (Auto) 1.16 K/uL (1.20-3.40) L 07/22/24 19:14 Boyd # (Auto) 0.72 K/uL (0.11-0.59) H 07/22/24 19:14 Eos # (Auto) 0.24 K/uL (0.00-0.50) 07/22/24 19:14 Baso # (Auto) 0.04 K/uL (0.00-0.20) 07/22/24 19:14 Immature Gran # (Auto) 0.05 K/uL (0.01-0.20) 07/22/24 19:14 Sodium 137 mmol/L (136-145) 07/22/24 19:14 Potassium 3.9 mmol/L (3.5-5.1) 07/22/24 19:14 Chloride 93 mmol/L (98-107) L 07/22/24 19:14 Carbon Dioxide 26 mmol/L (21-32) 07/22/24 19:14 Anion Gap 18 (3-11) H 07/22/24 19:14 BUN 17 mg/dl (6-23) 07/22/24 19:14 Creatinine 6.33 mg/dl (0.6-1.2) H* 07/22/24 19:14 Est Cr Clr Drug Dosing 13.9 ml/min 07/22/24 19:14 eGFR 7.78 07/22/24 19:14 BUN/Creatinine Ratio 2.7 (10-20) L 07/22/24 19:14 Glucose 93 mg/dl (70-99(Fasting)) 07/22/24 19:14 Calcium 10.0 mg/dl (8.6-10.3) 07/22/24 19:14 Phosphorus 3.1 mg/dl (2.5-4.9) 07/22/24 19:14 Magnesium 1.7 mg/dl (1.7-2.4) 07/22/24 19:14 Total Bilirubin 0.4 mg/dl (0.2-1.0) 07/22/24 19:14 AST 15 U/L (13-39) 07/22/24 19:14 ALT 10 U/L (7-52) 07/22/24 19:14 Alkaline Phosphatase 140 U/L (34-104) H 07/22/24 19:14 Troponin I High Sens 37.3 pg/ml (0-14) H 07/22/24 21:11 Total Protein 8.2 gm/dl (6.0-8.3) 07/22/24 19:14 Albumin 4.6 gm/dl (3.4-5.0) 07/22/24 19:14 Globulin 3.6 gm/dl (2.5-4.0) 07/22/24 19:14 Albumin/Globulin Ratio 1.3 (0.9-2) 07/22/24 19:14 Lipase 17 U/L (11-82) 07/22/24 19:14 HCG, Qual Negative (Negative) 07/22/24 19:14 Urine Color Yellow 07/22/24 19:28 Urine Appearance Clear (Clear) 07/22/24 19:28 Urine pH 6.0 (4.5-7.5) 07/22/24 19:28 Ur Specific [place] 1.020 (1.000-1.030) 07/22/24 19:28 Urine Protein 2+ (Negative) H 07/22/24 19:28 Urine Glucose (UA) Negative (Negative) 07/22/24 19: Urine Ketones Negative (Negative) 07/22/24 19: Urine Blood Trace-intact (Negative) H 07/22/24 19: Urine Nitrite Negative (Negative) 07/22/24 19: Urine Bilirubin 1+ (Negative) H 07/22/24 19: Urine Urobilinogen Negative (Negative) 07/22/24 19:28 Ur Leukocyte Esterase 1+ (Negative) H 07/22/24 19:28 Urine RBC 3-5 /hpf (0-2) H 07/22/24 19:28 Urine WBC 21-50 /hpf (0-5) H 07/22/24 19:28 Ur Epithelial Cells >20 /hpf (0-2) H 07/22/24 19:28 Urine Bacteria None Seen (None Seen) 07/22/24 19:28 Impressions Abdomen/Pelvis CT 07/22/24 19:17 Exam(s): CT ABDOMEN + PELVIS Without Contrast EXAM: CT Abdomen and Pelvis Without Intravenous Contrast CLINICAL HISTORY: Reason for exam: lower abd pain, dialysis. TECHNIQUE: Axial computed tomography images of the abdomen and pelvis without intravenous contrast. CTDI is 27.79 mGy and DLP is 1446.64 mGy-cm. Automated exposure control was utilized for the study. A dose lowering technique was utilized adhering to the principles of ALARA. COMPARISON: February 26, 2024 FINDINGS: Limitations: Exam limited secondary to lack of IV contrast. Lung bases: Unremarkable. No mass. No consolidation. ABDOMEN: Liver: Hepatomegaly. Gallbladder and bile ducts: Unremarkable. No calcified stones. No ductal dilation. Pancreas: Unremarkable. No ductal dilation. Spleen: Unremarkable. No splenomegaly. Adrenals: Unremarkable. No mass. Kidneys and ureters: And unchanged from prior exam. Nonobstructing bilateral intrarenal calculi. No hydronephrosis. Innumerable bilateral renal hypodensities likely representing cysts. Stomach and bowel: Unremarkable. No obstruction. No mucosal thickening. PELVIS: Appendix: No findings to suggest acute appendicitis. Bladder: Unremarkable. No stones. Reproductive: Uterus is surgically absent. ABDOMEN and PELVIS: Intraperitoneal space: Unremarkable. No free air. No significant fluid collection. Bones/joints: No acute fracture. No dislocation. Soft tissues: Unremarkable. Vasculature: Unremarkable. No abdominal aortic aneurysm. Lymph nodes: Unremarkable. No enlarged lymph nodes. IMPRESSION: No acute findings in the abdomen or pelvis. Nonobstructing bilateral intrarenal calculi Electronically signed by: Stan Marks MD 07/22/24 21:34 PM Chest X-Ray 07/22/24 19:18 Exam(s): XR CXR 1 VIEW EXAM: XR Chest, 1 View CLINICAL HISTORY: Reason for exam: abd pain. TECHNIQUE: Frontal view of the chest. COMPARISON: November 23, 2022 FINDINGS: Lungs: Unremarkable. No consolidation. Pleural space: Unremarkable. No pneumothorax. Heart: cardiomegaly. Mediastinum: Unremarkable. Normal mediastinal contour. Bones/joints: Unremarkable. No acute fracture. IMPRESSION: No acute findings in the chest. Stable cardiomegaly Electronically signed by: Stan Marks MD 07/22/24 21:30 PM PG Care Time/CCT Total # of Minutes Spent Total Time Spent with Patient: Total time spent is greater than 50% in coordination of care (as documented) at patient's floor/unit and/or counseling patient: Coding Level of Care Code 19314 INT INP/OBS CARE 3/75MIN Diagnoses Nausea vomiting and diarrhea R11.2; R19.7 Dialysis patient Z99.2 Hypertension I10 Hypertension type: unspecified UTI (urinary tract infection) N30.00 Hematuria presence: without hematuria Urinary tract infection type: acute cystitis (3) Hypertension Hypertension type: unspecified Qualified Code(s): I10 - Essential (primary) hypertension (4) UTI (urinary tract infection) Hematuria presence: without hematuria Urinary tract infection type: acute cystitis Qualified Code(s): N30.00 - Acute cystitis without hematuria
[2024-07-23] MEDS: HYDROmorphone INJ 0.5 MG/0.5 ML SYR IV PRN (00:24)
[2024-07-23] MEDS: ONDANSETRON INJ 2 MG/ML 2 ML VIAL IV PRN (00:24)
[2024-07-23 00:53] LABS: Base Excess VBG 5.2 mEq/L; HCO3 VBG 30 mmol/L; Oxygen Saturation VBG 82.3 %; PCO2 VBG 43 mmHg (38-50); PO2 VBG 49 mmHg; pH VBG 7.45 (7.36-7.41)
[2024-07-23] MEDS: ACETAMINOPHEN 500 MG TAB PO PRN (05:26)
[2024-07-23] MEDS: CALCIUM ACETATE 667 MG CAP/TAB PO SCH (07:40)
[2024-07-23] MEDS: amLODIPine BESYLATE 5 MG TAB PO SCH (08:05)
[2024-07-23] MEDS: CINACALCET HCL 30 MG TAB PO SCH (08:05)
--- NOTE | 2024-07-23 08:05 | Hospitalist Progress Note ---
Date of Service July 23, 2024 Assessment & Plan (1) Nausea vomiting and diarrhea: Plan: 43yo female with history of ESRD on HD presenting with several days of nausea, vomiting, diarrhea, PO intolerance and lower abdominal pain. Patient feels that her symptoms are likely secondary to UTI, however, UA with pyuria, >20 epithelial cells and no bacteria - culture is pending. . She did receive 2gm of Ceftriaxone in the ER. No recent antibiotic use, no sick contacts. ? viral process, ?gastroenteritis Obs medical CTAP on admission w/ no acute finding but noting non-obstructing intrarenal calculi WBC was 11.4k w/ L shift. ?2nd to reactive from n/v, vs UTI given dysuria complaints Lactic wnl, VBG w/ pH 7.45 but normal Co2/bicarb. Ceftriaxone 2gm IV in ER WBC normalized, afebrile Drinking but not much appetite, no BM but stool studies/cdiff pending given prior diarrhea complaints. +BS on exam Zofran prn PPI w/ protonix BID ordered Pain control: Dilaudid/tylenol ordered for pain. Added Oxycodone 5mg for mod- severe pain for longer lasting effect Stool studies/cdiff pending given prior diarrhea complaints Denies gas, bowel regimen as needed Continue Bentyl prn Of note, also on Linzess, ?gastroparesis -- no prior hx DM and will check A1c w/ AM labs Noting RUQ discomfort on exam but no stones/ductal dilatation. ALP was elevated but TB wnl and lipase 17, AST/ALT wnl. GI consult placed for additional recs/assistance. ?HIDA scan Home gabapentin continued --> NOTING patient on Gabapentin 200mg HS, 100mg twice daily for total 400mg daily in patient w/ ESRD on HD 3x/wk. UTD recs w/ 100mg 3x/wk after HD, titration up to 300mg 3x/wk after HD on HD days w/ some experts recommending cautious titration to max of 300mg/day (Had been increased by neurology, messaged nephrology for further discussion as likely not clearing w/ her ESRD) Nephrology consulted for HD needs IVF @ 80cc/hr ordered for now given poor PO intake Monitor CBC, CMP, Mag (and Vit D) w/ AM labs (2) Dialysis patient: Plan: ESRD on HD q T/R/S. Received treatment on 07/22 without improvement and presented for above Continues home cinacalcet/phoslo, nephrology consulted as above (3) Hypertension: Plan: Elevated BP upon arrival - patient received IV Labetalol with improved blood pressure BP stable in hospital setting at present on home Labetalol 800mg po TID. Continues on amlodipine (also can contribute to constipation) If patient unable to tolerate PO will transfer to monitored unit for IV BB scheduled Monitor w/ hydration Hyperlipidemia-Continue Atorvastatin (4) UTI (urinary tract infection): Plan: Possible UTI. UA with no bacteria. She received Ceftriaxone 2gm which should cover her x 24 hours and has been resumed daily while urine cx still pending No further urine reported, IVF as above for hydration and will monitor final cx/s. ?cystitis Plan Dispo: continued inpatient stay, monitor urine cx/continue abx, nephrology consulted Admission and Anticipated Discharge Date Admission Date: July 22, 2024 Supervising Physician Co-Signing Physician Notes The patient was not seen by me. The chart was reviewed. Case discussed with RENNY Willis. Agree with assessment and plan Subjective Evaluated this afternoon, resting in bed. Having ongoing nausea but no further vomiting. moved bowels yesterday, +BS on exam but reports hasn't urinated or passed gas today. Ok w/ bowel regimen as needed. Appears dehydrated on exam, discussed IVF orders and nephology consult placed for assistance w/ HD w/ IVF. Burning prior w/ urination indicating infection however reports was unable to gi ve urine sample at the office in the past and has had ongoing issues. Takes linzess at baseline for IBS symptoms as well. Discussed gabapentin -- had been tolerate without issues in the past but do note has been increased and per guidelines appears max 300mg/daily on HD days but is on 400mg daily per neurology and will message nephrology regarding such for discussion. Does have some RUQ pain on examination, has GB but CTAP not noting any calcified stones or ductal dilatation but ALP is elevated however denied increased fatty/fried foods and will monitor for additional testing. Continued inpatient stay, monitoring urine as sent in ER and will continue Ceftriaxone. Stool studies pending. Questions/concerns addressed at this time. Physical Exam Physical Exam: General: 43yo female resting in bed, NAD but fatigued/tired appearing HEENT: head atraumatic, normocephalic, mm DRY, trachea midline Resp: even/unlabored, slightly diminished in the bases but no w/c/r, on room air 99% CV: RRR, faint systolic murmur, no significant LE edema/calf tenderness GI+BS throughout but generalized tenderness (more in RUQ, suprapubic), slight distension, no guarding/rigidity no oconnor MSK/Neuro: nonfocal, answering questions appropriately Psych: AOx3, cooperative with exam Results & Data Results & Data Vital Signs (Past 12 Hours) Vital Signs Temp Pulse Pulse Resp BP BP Pulse Ox 07/23/24 07:19 36.7 C 93 H 18 138/92 99 07/22/24 23:45 36.7 C 16 134/97 95 07/22/24 22:33 18 97 07/22/24 22:30 124/86 07/22/24 22:14 92 H 116/92 07/22/24 21:56 91 H 153/107 H 07/22/24 21:51 90 20 96 07/22/24 21:39 99 H 22 95 07/22/24 21:34 131/92 07/22/24 21:33 97 H 21 100 07/22/24 21:06 98 H 23 96 07/22/24 20:30 154/122 H 07/22/24 20:30 102 H 22 99 07/22/24 20:12 100 H 22 98 O2 Del Method 07/23/24 07:19 Room Air 07/22/24 23:45 Room Air 07/22/24 22:33 Room Air 07/22/24 22:30 07/22/24 22:14 07/22/24 21:56 07/22/24 21:51 07/22/24 21:39 07/22/24 21:34 07/22/24 21:33 Room Air 07/22/24 21:06 Room Air 07/22/24 20:30 07/22/24 20:30 07/22/24 20:12 Laboratory Results 07/23/24 07/23/24 07/22/24 Range/Units 08:21 00:35 21:11 WBC 8.94 (4.8-10.8) K/ul RBC 3.16 L (4.20-5.40) M/uL Hgb 9.3 L (12.0-16.0) g/dl Hct 29.5 L (37.0-47.0) % MCV 93.4 (80.0-100.0) fL MCH 29.4 (25.0-34.0) pg MCHC 31.5 L (32.0-36.0) g/dL RDW Std Deviation 53.9 H (36.4-46.3) fL RDW Coeff of Hosea 15.9 H (11.5-14.5) % Plt Count 255 (130-400) K/uL MPV 9.4 (9.4-12.4) fL Immature Gran % (Auto) % Neut % (Auto) % Lymph % (Auto) % [place] % (Auto) % Eos % (Auto) % Baso % (Auto) % Neut # (Auto) (1.40-6.50) K/uL Lymph # (Auto) (1.20-3.40) K/uL [place] # (Auto) (0.11-0.59) K/uL Eos # (Auto) (0.00-0.50) K/uL Baso # (Auto) (0.00-0.20) K/uL Immature Gran # (Auto) (0.01-0.20) K/uL VBG pH 7.45 H (7.36-7.41) VBG pCO2 43 (38-50) mmHg VBG pO2 49 mmHg VBG HCO3 30 mmol/L VBG O2 Saturation 82.3 % VBG Base Excess 5.2 mEq/L Sodium 135 L (136-145) mmol/L Potassium 3.9 (3.5-5.1) mmol/L Chloride 92 L (98-107) mmol/L Carbon Dioxide 25 (21-32) mmol/L Anion Gap 18 H (3-11) BUN 25 H (6-23) mg/dl Creatinine 7.58 H* D (0.6-1.2) mg/dl Est Cr Clr Drug Dosing 11.5 ml/min eGFR 6.27 BUN/Creatinine Ratio 3.3 L (10-20) Glucose 93 (70-99(Fasting)) mg/dl Lactate 1.1 (0.4-2.0) mmol/L Calcium 9.8 (8.6-10.3) mg/dl Phosphorus (2.5-4.9) mg/dl Magnesium (1.7-2.4) mg/dl Total Bilirubin 0.3 (0.2-1.0) mg/dl Direct Bilirubin 0.0 (0-0.2) mg/dl AST 15 (13-39) U/L ALT 9 (7-52) U/L Alkaline Phosphatase 131 H (34-104) U/L Troponin I High Sens 37.3 H (0-14) pg/ml Total Protein 7.4 (6.0-8.3) gm/dl Albumin 4.4 (3.4-5.0) gm/dl Globulin (2.5-4.0) gm/dl Albumin/Globulin Ratio (0.9-2) Lipase (11-82) U/L HCG, Qual (Negative) Urine Color Urine Appearance (Clear) Urine pH (4.5-7.5) Ur Specific [place] (1.000-1.030) Urine Protein (Negative) Urine Glucose (UA) (Negative) Urine Ketones (Negative) Urine Blood (Negative) Urine Nitrite (Negative) Urine Bilirubin (Negative) Urine Urobilinogen (Negative) Ur Leukocyte Esterase (Negative) Urine RBC (0-2) /hpf Urine WBC (0-5) /hpf Ur Epithelial Cells (0-2) /hpf Urine Bacteria (None Seen) 07/22/24 07/22/24 Range/Units 19:28 19:14 WBC 11.42 H (4.8-10.8) K/ul RBC 3.47 L (4.20-5.40) M/uL Hgb 10.2 L (12.0-16.0) g/dl Hct 32.3 L (37.0-47.0) % MCV 93.1 (80.0-100.0) fL MCH 29.4 (25.0-34.0) pg MCHC 31.6 L (32.0-36.0) g/dL RDW Std Deviation 54.4 H (36.4-46.3) fL RDW Coeff of Hosea 16.0 H (11.5-14.5) % Plt Count 277 (130-400) K/uL MPV 9.6 (9.4-12.4) fL Immature Gran % (Auto) 0.4 % Neut % (Auto) 80.6 % Lymph % (Auto) 10.2 % [place] % (Auto) 6.3 % Eos % (Auto) 2.1 % Baso % (Auto) 0.4 % Neut # (Auto) 9.21 H (1.40-6.50) K/uL Lymph # (Auto) 1.16 L (1.20-3.40) K/uL [place] # (Auto) 0.72 H (0.11-0.59) K/uL Eos # (Auto) 0.24 (0.00-0.50) K/uL Baso # (Auto) 0.04 (0.00-0.20) K/uL Immature Gran # (Auto) 0.05 (0.01-0.20) K/uL VBG pH (7.36-7.41) VBG pCO2 (38-50) mmHg VBG pO2 mmHg VBG HCO3 mmol/L VBG O2 Saturation % VBG Base Excess mEq/L Sodium 137 (136-145) mmol/L Potassium 3.9 (3.5-5.1) mmol/L Chloride 93 L (98-107) mmol/L Carbon Dioxide 26 (21-32) mmol/L Anion Gap 18 H (3-11) BUN 17 (6-23) mg/dl Creatinine 6.33 H* (0.6-1.2) mg/dl Est Cr Clr Drug Dosing 13.9 ml/min eGFR 7.78 BUN/Creatinine Ratio 2.7 L (10-20) Glucose 93 (70-99(Fasting)) mg/dl Lactate (0.4-2.0) mmol/L Calcium 10.0 (8.6-10.3) mg/dl Phosphorus 3.1 (2.5-4.9) mg/dl Magnesium 1.7 (1.7-2.4) mg/dl Total Bilirubin 0.4 (0.2-1.0) mg/dl Direct Bilirubin (0-0.2) mg/dl AST 15 (13-39) U/L ALT 10 (7-52) U/L Alkaline Phosphatase 140 H (34-104) U/L Troponin I High Sens 39.1 H (0-14) pg/ml Total Protein 8.2 (6.0-8.3) gm/dl Albumin 4.6 (3.4-5.0) gm/dl Globulin 3.6 (2.5-4.0) gm/dl Albumin/Globulin Ratio 1.3 (0.9-2) Lipase 17 (11-82) U/L HCG, Qual Negative (Negative) Urine Color Yellow Urine Appearance Clear (Clear) Urine pH 6.0 (4.5-7.5) Ur Specific [place] 1.020 (1.000-1.030) Urine Protein 2+ H (Negative) Urine Glucose (UA) Negative (Negative) Urine Ketones Negative (Negative) Urine Blood Trace-intact H (Negative) Urine Nitrite Negative (Negative) Urine Bilirubin 1+ H (Negative) Urine Urobilinogen Negative (Negative) Ur Leukocyte Esterase 1+ H (Negative) Urine RBC 3-5 H (0-2) /hpf Urine WBC 21-50 H (0-5) /hpf Ur Epithelial Cells >20 H (0-2) /hpf Urine Bacteria None Seen (None Seen) Diagnostic Findings Abdomen/Pelvis CT 07/22/24 19:17 Exam(s): CT ABDOMEN + PELVIS Without Contrast EXAM: CT Abdomen and Pelvis Without Intravenous Contrast CLINICAL HISTORY: Reason for exam: lower abd pain, dialysis. TECHNIQUE: Axial computed tomography images of the abdomen and pelvis without intravenous contrast. CTDI is 27.79 mGy and DLP is 1446.64 mGy-cm. Automated exposure control was utilized for the study. A dose lowering technique was utilized adhering to the principles of ALARA. COMPARISON: February 26, 2024 FINDINGS: Limitations: Exam limited secondary to lack of IV contrast. Lung bases: Unremarkable. No mass. No consolidation. ABDOMEN: Liver: Hepatomegaly. Gallbladder and bile ducts: Unremarkable. No calcified stones. No ductal dilation. Pancreas: Unremarkable. No ductal dilation. Spleen: Unremarkable. No splenomegaly. Adrenals: Unremarkable. No mass. Kidneys and ureters: And unchanged from prior exam. Nonobstructing bilateral intrarenal calculi. No hydronephrosis. Innumerable bilateral renal hypodensities likely representing cysts. Stomach and bowel: Unremarkable. No obstruction. No mucosal thickening. PELVIS: Appendix: No findings to suggest acute appendicitis. Bladder: Unremarkable. No stones. Reproductive: Uterus is surgically absent. ABDOMEN and PELVIS: Intraperitoneal space: Unremarkable. No free air. No significant fluid collection. Bones/joints: No acute fracture. No dislocation. Soft tissues: Unremarkable. Vasculature: Unremarkable. No abdominal aortic aneurysm. Lymph nodes: Unremarkable. No enlarged lymph nodes. IMPRESSION: No acute findings in the abdomen or pelvis. Nonobstructing bilateral intrarenal calculi Electronically signed by: Stan Marks MD 07/22/24 21:34 PM Chest X-Ray 07/22/24 19:18 Exam(s): XR CXR 1 VIEW EXAM: XR Chest, 1 View CLINICAL HISTORY: Reason for exam: abd pain. TECHNIQUE: Frontal view of the chest. COMPARISON: November 23, 2022 FINDINGS: Lungs: Unremarkable. No consolidation. Pleural space: Unremarkable. No pneumothorax. Heart: cardiomegaly. Mediastinum: Unremarkable. Normal mediastinal contour. Bones/joints: Unremarkable. No acute fracture. IMPRESSION: No acute findings in the chest. Stable cardiomegaly Electronically signed by: Stan Marks MD 07/22/24 21:30 PM PG Care Time/CCT Total # of Minutes Spent Total Time Spent with Patient: Total time spent is greater than 50% in coordination of care (as documented) at patient's floor/unit and/or counseling patient: Coding Level of Care Code 49433 SUB INP/OBS CARE 3/50MIN Diagnoses Nausea vomiting and diarrhea R11.2; R19.7 Dialysis patient Z99.2 Hypertension I10 Hypertension type: unspecified UTI (urinary tract infection) N30.00 Hematuria presence: without hematuria Urinary tract infection type: acute cystitis (3) Hypertension Hypertension type: unspecified Qualified Code(s): I10 - Essential (primary) hypertension (4) UTI (urinary tract infection) Hematuria presence: without hematuria Urinary tract infection type: acute c ystitis Qualified Code(s): N30.00 - Acute cystitis without hematuria
[2024-07-23] MEDS: LABETALOL HCL 200 MG TAB PO SCH (08:06)
[2024-07-23] MEDS: GABAPENTIN 100 MG CAP PO SCH ×2 (08:06→13:35)
[2024-07-23] MEDS: PANTOprazole 40 MG TAB PO SCH (08:07)
[2024-07-23 08:56] LABS: Hematocrit (blood only) 29.5 % (37.0-47.0); Hemoglobin 9.3 g/dl (12.0-16.0); Mean Corpuscular Hemoglobin 29.4 pg (25.0-34.0); Mean Corpuscular Hgb Conc 31.5 g/dL (32.0-36.0); Mean Corpuscular Volume 93.4 fL (80.0-100.0); Mean Platelet Volume 9.4 fL (9.4-12.4); Platelet Count 255 K/uL (130-400); RDW Coefficient of Variation 15.9 % (11.5-14.5); RDW Standard Deviation 53.9 fL (36.4-46.3); Red Blood Count 3.16 M/uL (4.20-5.40); White Blood Count 8.94 K/ul (4.8-10.8)
[2024-07-23 09:25] LABS: Albumin Level 4.4 gm/dl (3.4-5.0); BUN Creatinine Ratio 3.3 (10-20); Bilirubin,Total 0.3 mg/dl (0.2-1.0); Calcium 9.8 mg/dl (8.6-10.3); Creatinine Clr Calc Pharmacy 11.5 ml/min; Potassium 3.9 mmol/L (3.5-5.1); Total Protein 7.4 gm/dl (6.0-8.3)
--- NOTE | 2024-07-23 10:19 | Electrocardiogram Report ---
Test Reason : Blood Pressure : */* mmHG Vent. 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
[2024-07-23] MEDS ORDERED: bisacodyL 10 MG SUPP PR PRN (13:53)
[2024-07-23] MEDS: SODIUM CHLORIDE 0.9% 500 ML IV SCH (14:30)
--- OUTSIDE RECORDS SUMMARY | 2024-07-23 14:39 | External Medical Summary | Continuity of Care Document ---
Author Name Unknown Organization [address] Address [address] [place], [place] [id number] Care Team Providers Care Insurance Sales Manager Name Role Phone MarlonImani Tay Primary Care Physician [phone] Encounter [id number] Date(s): 07/09/24 - 07/09/[address] [address] [phone] Encounter Diagnosis Iron deficiency anemia(Discharge Diagnosis) - 07/09/24 Discharge Disposition: Home or Self Care Attending Physician: MD King Brian D Referring Physician: MD King Brian D Allergies, Adverse Reactions, Alerts No Known Medication Allergies Medications amitriptyline 50 mg oral tablet TAKE 1 TABLET BY MOUTH AT BEDTIME Start Date: 02/18/24 Status: Ordered amlodipine 5 mg oral tablet Start: 09/22/13 10:22:00 AM EST, 1 tab, PO, Daily Start Date: 09/22/13 Status: Ordered cloNIDine 0.1 mg oral tablet Start: 09/22/13 10:21:00 AM EST, 1 tab, PO, bid Start Date: 09/22/13 Status: Ordered dicyclomine 10 mg oral capsule TAKE 1 CAPSULE BY MOUTH THREE TIMES A DAY NEEDED FOR ABDOMINAL PAIN Start Date: 02/18/24 Status: Ordered felodipine 10 mg oral tablet, extended release Start: 09/22/13 10:22:00 AM EST, 1 tab, PO, Daily Start Date: 09/22/13 Status: Ordered gabapentin 100 mg oral capsule TAKE 1 CAPSULE BY MOUTH 3 TIMES A DAY Start Date: 02/18/24 Status: Ordered hydrALAZINE 50 mg oral tablet Start: 09/22/13 10:21:00 AM EST, 1 tab, PO, bid Start Date: 09/22/13 Status: Ordered hydrochlorothiazide-lisinopril 12.5 mg-10 mg oral tablet Start: 09/22/13 10:22:00 AM EST, 1 tab, PO, Daily Start Date: 09/22/13 Status: Ordered Hydrocortisone/Lidocaine Start: 02/18/24 3:42:00 PM EDT, Hydrocortisone/Lidocaine, 25mg/1mg supp DE daily Start Date: 02/18/24 Status: Ordered labetalol 200 mg oral tablet Start: 09/22/13 10:21:00 AM EST, 1 tab, PO, bid Start Date: 09/22/13 Status: Ordered Lidocaine-Hydrocortisone Start: 02/18/24 4:04:00 PM EDT, Lidocaine-Hydrocortisone, eRx Product Type: Compound, See Instructions, Disp# 14 supp, 1 suppository DE qhs for 14 days, Note to Pharmacy: 25mg of Lidocaine; 25mg of hydrocortisone. Please call patient when med ready [phone], Pharmacy [facility] Start Date: 02/18/24 Status: Ordered pantoprazole 40 mg oral delayed release tablet Start: 04/29/16 3:24:00 PM EDT, 1 tab, PO, bid, Disp# 60 bottle, Refills: 0 Start Date: 04/29/16 Status: Ordered rizatriptan 10 mg oral tablet, disintegrating PLACE 1 TABLET ON THE TONGUE EVERY 2 HOURS NEEDED FOR MIGRAINE HEADACHE. DO NOT EXCEED 3 DOSES IN 24 HOURS Start Date: 02/18/24 Status: Ordered sulfamethoxazole-trimethoprim 400 mg-80 mg oral tablet Start: 05/07/24 10:44:00 AM EDT, trimethoprim 2 tab, PO, bid Start Date: 05/07/24 Stop Date: 05/14/24 Status: Ordered SUMAtriptan 6 mg/0.5 mL subcutaneous solution Start: 02/18/24 3:01:00 PM EDT, 6 mg =, subQ, ONCE, PRN: as needed for migraine headache Start Date: 02/18/24 Status: Ordered Triphro oral capsule take 1 capsule by mouth once daily Start Date: 09/22/13 Status: Ordered Problem List Condition Confirmation Course Effective Dates Status Health St atus Informant Bleeding hemorrhoids Confirmed Active Chronic kidney disease (CKD), stage V Confirmed Active Constipation Confirmed Active GI bleed Confirmed Active HBP (high blood pressure) Confirmed Active Iron deficiency anemia Confirmed Active Tobacco user Confirmed Active Weight monitoring Confirmed Active Diagnosis Diagnosis Type Effective Dates Health Status Clinical Service Informant Iron deficiency anemia Discharge Diagnosis 07/09/24 Non-Specified Procedures Procedure Date Related Diagnosis Body Site Status Arteriovenous fistula Revisi on - Right Wrist 10/04/13 Completed Arteriovenous fistula Right Wrist 08/27/13 Completed section Complete d Social History Social History Type Response Smoking Status Never smoked cigaret josefina Sex Female Sex Representation Female (finding) Patient Care team information Care Team Personnel Name: MD Mason Michelle D Position: Referring DIRECT Member Role: Primary Care Provider Address: [address] [place] [id number] [place] Care Team Related Persons Name: MAKI TREJO Name: PARI TREJO Name: SABRINA GUNDERSON
--- OUTSIDE RECORDS SUMMARY | 2024-07-23 14:39 | External Medical Summary | Continuity of Care Document ---
Author Name Unknown Organization [address] [place], [place] [id number] Care Team Providers Care Rocket Engine Tester Name Role Phone MarlonmIani morgan Tay Primary Care Physician [phone] [id number] Date(s): 06/09/24 - 06/09/[address] [address] [phone] Encounter Diagnosis ALDO (iron deficiency anemia)(Discharge Diagnosis) - 06/09/24 Discharge Disposition: Home or Self Care Attending Physician: MD King Brian D Allergies, Adverse [...] 02/18/24 3:42:00 PM EDT, Hydrocortisone/Lidocaine, 25mg/1mg supp CT daily Start Date: 02/18/24 Status: Ordered labetalol 200 mg oral tablet Start: 09/22/13 10:21:00 AM EST, 1 tab, PO, bid Start Date: 09/22/13 Status: Ordered Lidocaine-Hydrocortisone Start: 02/18/24 4:04:00 PM EDT, Lidocaine-Hydrocortisone, eRx Product Type: Compound, See Instructions, Disp# 14 supp, [address] qhs for 14 days, Note to Pharmacy: 25mg of Lidocaine; 25mg of hydrocortisone. Please call patient when med ready [phone], Pharmacy [facility] Start Date: 02/18/24 Status: Ordered pantoprazole [...] Effective Dates Health Status Clinical Service Informant ALDO (iron deficiency anemia) Discharge Diagnosis 06/09/24 Non-Specified Procedures Procedure Date Related Diagnosis Body Site Status Arteriovenous fistula Revisi on - Right Wrist 10/04/13 Completed Arteriovenous fistula Right Wrist 08/27/13 Completed section Complete d Social History Social History Type Response Smoking Status Never smoked cigaret josefina Sex Female Sex Representation Female (finding) Patient Care team information Care Team Personnel Name: MD Marlon, Imani Cross Position: Referring DIRECT Member Role: Primary Care Provider Address: [address] [place] [id number] [place] Care Team Related Persons Name: MAKI TREJO Name: PARI TREJO Name: SABRINA GUNDERSON
--- NOTE | 2024-07-23 14:50 | Gastrointestinal Consultation ---
Date of Consultation July 23, 2024 Assessment & Plan (1) Nausea vomiting and diarrhea: -Antiemetics -Stool PCR & C diff -Supportive care per primary team Supervising Physician Co-Signing Physician Notes I saw and examined this patient with our nurse practitioner and agree with her assessment and plan. Differential diagnosis of her presentation includes gastroenteritis, urinary tract infection less likely uremia in light of electrolytes and regular reliable dialysis. Clinically improving. Await stool studies and urine culture. Treat symptomatically if no improvement's for possible further GI evaluation. History of Present Illness Reason for Consultation: ?IBS, n/v/d Attending Physician: Alex Cavanaugh MD History of Present Illness Patient is a 43 yo female well known to our outpatient clinic for ongoing bowel issues predominantly constipation. PMH includes ESRD on HD, HTN, iron deficiency anemia. Patient reports she started feeling ill with lower abdominal pain/cramping, dysuria, nausea, vomiting and inability to tolerate PO on 07/19/24. Her symptoms have been persistent with worsening lower abdominal pain. She did go to HD today and had a full treatment. She had two episodes of vomiting today and was unable to take her medications. Patient also with several episodes of diarrhea, non-bloody and chills. She denies chest pain, palpitations, cough, back pain Last colonoscopy December 2023 indicated diverticulosis and internal hemorrhoids. EGD with push done in 2023 negative as well. She takes a PPI at home-Protonix [address] imaging negative. Normal T bili, AST, ALT. Allergies Allergy/AdvReac Type Severity Reaction Status Date / Time pneumococcal 7-valent Allergy Severe Swelling Verified 06/07/24 09:59 conjugate to of [From Prevnar] Lip/Tongue/Throat Home Medications Medication Instructions Recorded Confirmed Type calcium acetate(phosphat bind) 667 2,001 mg PO TIDM 09/30/18 07/22/24 History mg capsule atorvastatin 10 mg tablet (Lipitor) 10 mg PO QPM #90 tabs 03/08/20 07/22/24 Rx cinacalcet 30 mg tablet 30 mg PO QAM 08/02/20 07/22/24 History amlodipine 5 mg tablet 5 mg PO QAM 11/23/22 07/22/24 History pantoprazole 40 mg tablet,delayed 40 mg PO BID 90 days #180 tabs 11/07/23 07/22/24 Rx release linaclotide 145 mcg capsule 145 mcg PO QPM PRN Constipation 12/02/23 07/22/24 History (Linzess) rizatriptan 10 mg disintegrating 10 mg PO Q2H PRN migraine headache 12/17/23 07/22/24 Rx tablet (Maxalt-REED [employer] INSTRUMENT REPAIRER) 30 days #9 tabs sumatriptan succinate 6 mg/0.5 mL 6 mg (0.5 mL) subcut UD PRN 12/17/23 07/22/24 Rx subcutaneous pen injector (Imitrex Headache #1 mL STATdose Pen) gabapentin 100 mg capsule 100 mg PO .COMPLEX #120 caps 03/01/24 07/22/24 Rx triamcinolone acetonide 0.1 % 1 applic topical TID #15 grams 06/07/24 07/22/24 Rx topical ointment dicyclomine 10 mg capsule 10 mg PO TID PRN abdominal pain 06/28/24 07/22/24 Rx #30 caps labetalol 200 mg tablet 800 mg (4 x 200 mg) PO TID #360 07/20/24 07/22/24 Rx tabs amitriptyline 50 mg tablet 50 mg PO HS 07/22/24 07/22/24 History Patient History Medical History Recurrent UTI (urinary tract infection) currently on Cefdinir Bilateral carpal tunnel syndrome Hx of migraines Iron deficiency anemia Hyperlipidemia History of asthma PUD (peptic ulcer disease) Hx of renal calculi Lumbar radiculopathy Morbid obesity with BMI of 45.0-49.9, adult Hypertension History of gastric ulcer A-V fistula right arm Surgical History H/O tubal ligation History of abdominoplasty repair skin around scar History of section x4 History of esophagogastroduodenoscopy (EGD) History of wisdom tooth extraction Family History Mother Family history of diabetes mellitus Sister Family history of diabetes mellitus x3 Aunt Heart disease Father Family history of kidney disease Other No family history of adverse response to anesthesia Denies family history of Pancreatic cancer Ovarian cancer Prostate cancer Myocardial infarction Breast cancer Colorectal cancer Uterine cancer Social History Smoking Status: Never smoker Second Hand Exposure: No; Do You Dip or Chew Tobacco: No; Hx Alcohol Use: No Hx Substance Use: Yes Prescribed Medications: Marijuana Last Used Substance Other:: months ago Preferred Language: Sinhala Communication Ability: Effective Visual Impairment: No Limitations Hearing Ability: Normal Broadcast Correspondent Required: No Beliefs That Will Affect Care: None marital status: Single Current Living Situation: Family Current Living Situation Comment: 2 children current occupational status: disabled How many Children do You have: 3 Feels Safe at Home: Yes Childhood Exposure to Second-Hand Smoke: No Diet: regular caffeine: Yes during the past year weight has: decreased > 10 lbs Dental Care, Regularly: Yes Physical Activity Frequency: Daily Seatbelt Use: always Sunscreen Use: Yes Assistive Devices: None Review of Systems Gastrointestinal: + abdominal pain, + nausea, + vomiting a nd + diarrhea/loose stools Physical Exam Gastrointestinal (Abdomen): Inspection/Auscultation: abdomen not distended Percussion/Palpation: + abdomen tender and abdomen soft Results & Data Vital Signs (Past 12 Hours) Vital Signs Temp Pulse Resp BP Pulse Ox O2 Del Method 07/23/24 07:19 36.7 C 93 H 18 138/92 99 Room Air 07/23/24 07:10 Room Air PG Care Time/CCT Total # of Minutes Spent Total Time Spent with Patient: Total time spent is greater than 50% in coordination of care (as documented) at patient's floor/unit and/or counseling patient: Coding Level of Care Code 59697 IN/OBS CONSULT LVL 4,60M Diagnoses Nausea vomiting and diarrhea R11.2; R19.7
--- NOTE | 2024-07-23 16:00 | Nephrology Consultation ---
Date of Consultation July 23, 2024 Assessment & Plan (1) ESRD (end stage renal disease) on dialysis: Outpatient HD Rx: TTS @ [facility], 4 hours, 180 optiflux, 3K 2.5Ca Qb 450. EDW 108.kg R RC AVF created [address] Sherman. Preliminary orders for HD tomorrow have been entered into the EHR and reviewed with the funeral home assistant. Medications are appropriate for kidney function. Hold labetalol pre-HD. Renal diet. Calcium acetate can be held pending improvement in GI symptoms. Remains on cinacalcet per home Rx. (2) Anemia: Chronic, stable. Maintained on Micera outpatient (200 mcg 07/13). Epogen 08964 units with HD tomorrow. (3) Diffuse abdominal pain: CT reviewed. GI consultation. Empiric ceftriaxone provided for possible UTI. Stool studies pending. 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 She dialyzes TTS at [facility] under the care of Dr. Crawford. Astrid has been maintained on HD since 2012. She has a well functioning right forearm AVF placed by Dr. Sherman. She completed her last treatment yesterday. Rx is 4 hours w/ 180 optiflux, 3K 2.5Ca 137Na. EDW 108 kg. Astrid left HD yesterday at 109.5 kg. She is maintained on Micera for anemia as well as maintenance Venofer. She received Micera 200 mcg on July 13. There have not been any complications with hemodialysis. Hemoglobin has been low (8.4 on 07/13). Medical history is notable for a history of PUD, GI dysmotility, obesity, fungal esophagitis 2014, and IBS. She follows with gastroenterology as an outpatient. Astrid presented to [facility] with ongoing N/V/D x several days. Allergies Allergy/AdvReac Type Severity Reaction Status Date / Time pneumococcal 7-valent Allergy Severe Swelling Verified 06/07/24 09:59 conjugate to of [From Prevnar] Lip/Tongue/Throat Home Medications Medication Instructions Recorded Confirmed Type calcium acetate(phosphat bind) 667 2,001 mg PO TIDM 09/30/18 07/22/24 History mg capsule atorvastatin 10 mg tablet (Lipitor) 10 mg PO QPM #90 tabs 03/08/20 07/22/24 Rx cinacalcet 30 mg tablet 30 mg PO QAM 08/02/20 07/22/24 History amlodipine 5 mg tablet 5 mg PO QAM 11/23/22 07/22/24 History pantoprazole 40 mg tablet,delayed 40 mg PO BID 90 days #180 tabs 11/07/23 07/22/24 Rx release linaclotide 145 mcg capsule 145 mcg PO QPM PRN Constipation 12/02/23 07/22/24 History (Linzess) rizatriptan 10 mg disintegrating 10 mg PO Q2H PRN migraine headache 12/17/23 07/22/24 Rx tablet (Maxalt-ROT[employer] SAW OPERATOR) 30 days #9 tabs sumatriptan succinate 6 mg/0.5 mL 6 mg (0.5 mL) subcut UD PRN 12/17/23 07/22/24 Rx subcutaneous pen injector (Imitrex Headache #1 mL STATdose Pen) gabapentin 100 mg capsule 100 mg PO .COMPLEX #120 caps 03/01/24 07/22/24 Rx triamcinolone acetonide 0.1 % 1 applic topical TID #15 grams 06/07/24 07/22/24 Rx topical ointment dicyclomine 10 mg capsule 10 mg PO TID PRN abdominal pain 06/28/24 07/22/24 Rx #30 caps labetalol 200 mg tablet 800 mg (4 x 200 mg) PO TID #360 07/20/24 07/22/24 Rx tabs amitriptyline 50 mg tablet 50 mg PO HS 07/22/24 07/22/24 History Patient History Medical History Recurrent UTI (urinary tract infection) currently on Cefdinir Bilateral carpal tunnel syndrome Hx of migraines Iron deficiency anemia Hyperlipidemia History of asthma PUD (peptic ulcer disease) Hx of renal calculi Lumbar radiculopathy Morbid obesity with BMI of 45.0-49.9, adult Hypertension History of gastric ulcer A-V fistula right arm Surgical History H/O tubal ligation History of abdominoplasty repair skin around scar History of section x4 History of esophagogastroduodenoscopy (EGD) History of wisdom tooth extraction Family History Mother Family history of diabetes mellitus Sister Family history of diabetes mellitus x3 Aunt Heart disease Father Family history of kidney disease Other No family history of adverse response to anesthesia Denies family history of Pancreatic cancer Ovarian cancer Prostate cancer Myocardial infarction Breast cancer Colorectal cancer Uterine cancer Social History Smoking Status: Never smoker Second Hand Exposure: No; Do You Dip or Chew Tobacco: No; Hx Alcohol Use: No Hx Substance Use: Yes Prescribed Medications: Marijuana Last Used Substance Other:: months ago Preferred Language: Palauan Communication Ability: Effective Visual Impairment: No Limitations Hearing Ability: Normal Flower Stripper Required: No Beliefs That Will Affect Care: None marital status: Single Current Living Situation: Family Current Living Situation Comment: 2 children current occupational status: disabled How many Children do You have: 3 Feels Safe at Home: Yes Childhood Exposure to Second-Hand Smoke: No Diet: regular caffeine: Yes during the past year weight has: decreased > 10 lbs Dental Care, Regularly: Yes Physical Activity Frequency: Daily Seatbelt Use: always Sunscreen Use: Yes Assistive Devices: None Review of Systems Review of Systems: All systems reviewed & are unremarkable except as noted in HPI & below Physical Exam Constitutional: well developed; no acute distress Eyes: + anicteric sclerae; no conjunctival abn ormality ENMT: Mouth: no oral mucosal abnormality and oral mucous membranes not dry Neck: normal visual inspection and trachea midline Respiratory: normal respiratory effort Auscultation: lungs clear to auscultation bilaterally Cardiovascular: Rate/Rhythm: regular rate Heart Sounds: normal S1 and normal S2 Extremities: + AV fistula (Right forearm); no edema Musculoskeletal: Extremities: no cyanosis and no clubbing Skin: normal turgor; no lesions Neurologic: Motor/Sensory: no tremor and no asterixis Psychiatric: Orientation: alert and oriented x 3 Results & Data Vital Signs (Past 12 Hours) Vital Signs Temp Pulse Resp BP Pulse Ox O2 Del Method 07/23/24 15:44 37.0 C 78 18 116/74 97 Room Air 07/23/24 07:19 36.7 C 93 H 18 138/92 99 Room Air 07/23/24 07:10 Room Air Laboratory Results Laboratory Results - last 24 hr 07/22/24 07/22/24 07/22/24 19:14 19:28 21:11 WBC 11.42 H RBC 3.47 L Hgb 10.2 L Hct 32.3 L MCV 93.1 MCH 29.4 MCHC 31.6 L RDW Std Deviation 54.4 H RDW Coeff of [place] 16.0 H Plt Count 277 MPV 9.6 Immature Gran % (Auto) 0.4 Neut % (Auto) 80.6 Lymph % (Auto) 10.2 [place] % (Auto) 6.3 Eos % (Auto) 2.1 Baso % (Auto) 0.4 Neut # (Auto) 9.21 H Lymph # (Auto) 1.16 L [place] # (Auto) 0.72 H Eos # (Auto) 0.24 Baso # (Auto) 0.04 Immature Gran # (Auto) 0.05 VBG pH VBG pCO2 VBG pO2 VBG HCO3 VBG O2 Saturation VBG Base Excess Sodium 137 Potassium 3.9 Chloride 93 L Carbon Dioxide 26 Anion Gap 18 H BUN 17 Creatinine 6.33 H* Est Cr Clr Drug Dosing 13.9 eGFR 7.78 BUN/Creatinine Ratio 2.7 L Glucose 93 Lactate Calcium 10.0 Phosphorus 3.1 Magnesium 1.7 Total Bilirubin 0.4 Direct Bilirubin AST 15 ALT 10 Alkaline Phosphatase 140 H Troponin I High Sens 39.1 H 37.3 H Total Protein 8.2 Albumin 4.6 Globulin 3.6 Albumin/Globulin Ratio 1.3 Lipase 17 HCG, Qual Negative Urine Color Yellow Urine Appearance Clear Urine pH 6.0 Ur Specific [place] 1.020 Urine Protein 2+ H Urine Glucose (UA) Negative Urine Ketones Negative Urine Blood Trace-intact H Urine Nitrite Negative Urine Bilirubin 1+ H Urine Urobilinogen Negative Ur Leukocyte Esterase 1+ H Urine RBC 3-5 H Urine WBC 21-50 H Ur Epithelial Cells >20 H Urine Bacteria None Seen 07/23/24 07/23/24 00:35 08:21 WBC 8.94 RBC 3.16 L Hgb 9.3 L Hct 29.5 L MCV 93.4 MCH 29.4 MCHC 31.5 L RDW Std Deviation 53.9 H RDW Coeff of [place] 15.9 H Plt Count 255 MPV 9.4 Immature Gran % (Auto) Neut % (Auto) Lymph % (Auto) [place] % (Auto) Eos % (Auto) Baso % (Auto) Neut # (Auto) Lymph # (Auto) [place] # (Auto) Eos # (Auto) Baso # (Auto) Immature Gran # (Auto) VBG pH 7.45 H VBG pCO2 43 VBG pO2 49 VBG HCO3 30 VBG O2 Saturation 82.3 VBG Base Excess 5.2 Sodium 135 L Potassium 3.9 Chloride 92 L Carbon Dioxide 25 Anion Gap 18 H BUN 25 H Creatinine 7.58 H* D Est Cr Clr Drug Dosing 11.5 eGFR 6.27 BUN/Creatinine Ratio 3.3 L Glucose 93 Lactate 1.1 Calcium 9.8 Phosphorus Magnesium Total Bilirubin 0.3 Direct Bilirubin 0.0 AST 15 ALT 9 Alkaline Phosphatase 131 H Troponin I High Sens Total Protein 7.4 Albumin 4.4 Globulin Albumin/Globulin Ratio Lipase HCG, Qual Urine Color Urine Appearance Urine pH Ur Specific [place] Urine Protein Urine Glucose (UA) Urine Ketones Urine Blood Urine Nitrite Urine Bilirubin Urine Urobilinogen Ur Leukocyte Esterase Urine RBC Urine WBC Ur Epithelial Cells Urine Bacteria Diagnostic Findings XR Chest, 1 View Frontal view of the chest. COMPARISON: November 23, 2022 FINDINGS: Lungs: Unremarkable. No consolidation. Pleural space: Unremarkable. No pneumothorax. Heart: cardiomegaly. Mediastinum: Unremarkable. Normal mediastinal contour. Bones/joints: Unremarkable. No acute fracture. IMPRESSION: No acute findings in the chest. CT Abdomen and Pelvis Without Intravenous Contrast COMPARISON: February 26, 2024 FINDINGS: Limitations: Exam limited secondary to lack of IV contrast. Lung bases: Unremarkable. No mass. No consolidation. ABDOMEN: Liver: Hepatomegaly. Gallbladder and bile ducts: Unremarkable. No calcified stones. No ductal dilation. Pancreas: Unremarkable. No ductal dilation. Spleen: Unremarkable. No splenomegaly. Adrenals: Unremarkable. No mass. Kidneys and ureters: And unchanged from prior exam. Nonobstructing bilateral intrarenal calculi. No hydronephrosis. Innumerable bilateral renal hypodensities likely representing cysts. Stomach and bowel: Unremarkable. No obstruction. No mucosal thickening. PELVIS: Appendix: No findings to suggest acute appendicitis. Bladder: Unremarkable. No stones. Reproductive: Uterus is surgically absent. ABDOMEN and PELVIS: Intraperitoneal space: Unremarkable. No free air. No significant fluid collection. Bones/joints: No acute fracture. No dislocation. Soft tissues: Unremarkable. Vasculature: Unremarkable. No abdominal aortic aneurysm. Lymph nodes: Unremarkable. No enlarged lymph nodes. IMPRESSION: No acute findings in the abdomen or pelvis. Nonobstructing bilateral intrarenal calculi PG Care Time/CCT Total # of Minutes Spent Total Time Spent with Patient: Total time spent is greater than 50% in coordination of care (as documented) at patient's floor/unit and/or counseling patient: Coding Level of Care Code 56690 IN/OBS CONSULT LVL 4,60M Diagnoses ESRD (end stage renal disease) on dialysis N18.6; Z99.2 Anemia D64.9 Diffuse abdominal pain R10.84
[2024-07-23] MEDS: oxyCODONE HCL IR 5 MG TAB (IMMEDIATE RELEASE) PO PRN (18:25)
[2024-07-23] MEDS: cefTRIAXone SODIUM 2,000 MG/50 ML BAG IV SCH (19:53)
[2024-07-23] MEDS: AMITRIPTYLINE HCL 50 MG TAB PO SCH (19:56)
[2024-07-23] MEDS: ATORVASTATIN 10 MG TAB PO SCH (19:57)
[2024-07-23] MEDS: DOCUSATE SODIUM 100 MG CAP PO SCH (20:02)
[2024-07-24] MEDS ORDERED: EPOETIN ALFA 20,000 UNITS/ML VIAL SQ ONE (07:00)
--- NOTE | 2024-07-24 08:05 | Hospitalist Progress Note ---
Date of Service July 24, 2024 Assessment & Plan (1) Superior mesenteric artery stenosis: Plan: 43yo female with history of ESRD on HD presenting with several days of nausea, vomiting, diarrhea, PO intolerance and lower abdominal pain. Patient feels that her symptoms are likely secondary to UTI, however, UA with pyuria, >20 epithelial cells and no bacteria - culture is pending. . She did receive 2gm of Ceftriaxone in the ER. No recent antibiotic use, no sick contacts. CTAP on admission without acute finding but further evaluation of her chart and prior imaging given upper abdominal discomfort ?concerns for possible underlying GB issue (however has had extensive workup which was negative in the past) vs ? underlying issue w/ SMA or celiac artery disease in ESRD patient on HD and discussed with GI who was consulted yesterday for further eval but no further recs for imaging and to await stool studies initially Given my concerns for issue w/ SMA vs celiac artery w/ upper abd pain not improved w/ PPI BID (and likely masked w/ prn Bentyl and ongoing for >1yr in duration with normal RUQ US in the past as well as HIDA scans), ordered MESENTERIC DUPLEX for further eval --> Report w/ "Apparent elevated peak systolic velocities within the superior mesenteric artery would correlate with stenosis of greater than 70%. This can be confirmed with CTA. No mesenteric occlusion identified. " Heparin SQ BID added for DVT proph in meantime given Is ESRD patient on HD w/ oliguria and call to Dr Crawford given she underwent HD this morning given need for contrast for CTA and discussion to plan for CTA on 07/25 and then he will schedule her for HD on FRIDAY (2) Vitamin D deficiency: Plan: checked, LOW 14.8, PO replacement started/would continue at [place]. suspect 2nd hyperparathyroidism from CKD as well w/ elevated ALP (3) Dialysis patient: Plan: ESRD on HD q T/R/S. R eceived treatment on 07/22 without improvement and presented for above Continues home cinacalcet/phoslo, nephrology consulted as above Nephrology consulted for HD, underwent tx today 07/24 and planning for repeat session FRIDAY given CTA for tomorrow (4) Hypertension: Plan: Elevated BP upon arrival - patient received IV Labetalol with improved blood pressure BP stable in hospital setting at present on home Labetalol 800mg po TID. Continues on amlodipine (also can contribute to constipation) Hydration provided as above BP currently stable 125/78 and will monitor Hyperlipidemia-Continue Atorvastatin (5) UTI (urinary tract infection): Plan: Possible UTI. UA with no bacteria. She received Ceftriaxone 2gm which should cover her x 24 hours and has been resumed daily while urine cx still pending but cx no growth and will hold off further for tomorrow and monitor. ?underlying cystitis Plan Dispo: continued inpatient stay and changed to admission given ongoing inpatient stay Heparin SQ BID for DVT prophylaxis, planning for CTA as outlined tomorrow and HD for friday. Further consults/recs pending CTA results. Admission and Anticipated Discharge Date Admission Date: July 22, 2024 Supervising Physician Co-Signing Physician Notes The patient was not seen by me. The chart was reviewed. Case discussed with RENNY Willis. Agree with assessment and plan Subjective Eval up in HD, doing alright. Pain stable w/ ordered medications at present. Did move bowels overnight, remains on abx but urine cx w/o growth. Further discussion given review of chart/discussion w/ patient for upper abd pain/ruq discomfort did obtain US mesentric duplex this morning for concerns for possible SMA/celiac artery disease and discussed US noting "Apparent elevated peak systolic velocities within the superior mesenteric artery would correlate with stenosis of greater than 70%. This can be confirmed with CTA." and wanting to obtain CTA for further eval but waiting to discuss/hear back from nephrology given ESRD on HD and need for contrast for imaging to determine timing to be able to order if needing to have another HD treatment following. Questions/concerns addressed at this time. Results & Data Results & Data Laboratory Results 07/24/24 09:39 07/24/24 09:39 ALP 123 Vit D 14.8 TSH 0.386 Diagnostic Findings Mesenteric US 07/24/24 08:21 US duplex mesenteric HISTORY: 43 years-old Female eval celiac artery/SMA acute generalized abdominal pain COMPARISON: CT 07/22/2024 TECHNIQUE: Duplex study of the mesenteric vessels was obtained assessing grayscale appearance, color and spectral flow FINDINGS: Limited exam secondary to obscuring bowel gas. Celiac artery demonstrate peak systolic velocities are 113 cm/s, end diastolic velocities of 26 cm/s. Superior mesenteric artery demonstrate peak systolic velocities of 397 cm/s, end diastolic velocities of 100 cm/s. The inferior mesenteric artery demonstrates peak systolic velocities of 57 cm/s and end-diastolic velocities of 13 cm/s. IMPRESSION: 1. Limited study secondary to obscuring bowel gas. 2. Apparent elevated peak systolic velocities within the superior mesenteric artery would correlate with stenosis of greater than 70%. This can be confirmed with CTA. 2. No mesenteric occlusion identified. ACT 112: Negative or not required by law. The above report was generated using voice recognition software. It may contain grammatical, syntax or spelling errors. Electronically signed by: Fidencio Perez M.D. 07/24/2024 9:49 AM PG Care Time/CCT Total # of Minutes Spent Total Time Spent with Patient: Total time spent is greater than 50% in coordination of care (as documented) at patient's floor/unit and/or counseling patient: Coding Level of Care Code 74365 SUB INP/OBS CARE 3/50MIN Diagnoses Superior mesenteric artery stenosis K55.1 Vitamin D deficiency E55.9 Dialysis patient Z99.2 Hypertension I10 Hypertension type: unspecified UTI (urinary tract infection) N30.00 Hematuria presence: without hematuria Urinary tract infection type: acute cystitis (4) Hypertension Hypertension type: unspecified Qualified Code(s): I10 - Essential (primary) hypertension (5) UTI (urinary tract infection) Hematuria presence: without hematuria Urinary tract infection type: acute cystitis Qualified Code(s): N30.00 - Acute cystitis without hematuria
--- NOTE | 2024-07-24 09:51 | Ultrasound Report ---
US duplex mesenteric HISTORY: 43 years-old Female eval celiac artery/SMA acute generalized abdominal pain COMPARISON: CT 07/22/2024 TECHNIQUE: Duplex study of the mesenteric vessels was obtained assessing grayscale appearance, color and spectral flow FINDINGS: Limited exam secondary to obscuring bowel gas. Celiac artery demonstrate peak systolic velocities are 113 cm/s, end diastolic velocities of 26 cm/s. Superior mesenteric artery demonstrate peak systolic velocities of 397 cm/s, end diastolic velocities of 100 cm/s. The inferior mesenteric artery demonstr ates peak systolic velocities of 57 cm/s and end-diastolic velocities of 13 cm/s. IMPRESSION: 1. Limited study secondary to obscuring bowel gas. 2. Apparent elevated peak systolic velocities within the superior mesenteric artery would correlate w ith stenosis of greater than 70%. This can be confirmed with CTA. 2. No mesenteric occlusion identified. ACT 112: Negative or not required by law. The above report was generated using voice recognition software. It may contain grammatical, syntax o r spelling errors. Electronically signed by: Fidencio Perez M.D. 07/24/2024 9:49 AM
[2024-07-24 10:08] LABS: Basophils # (auto) 0.04 K/uL (0.00-0.20); Basophils % (auto) 0.5 %; Eosinophils # (auto) 0.28 K/uL (0.00-0.50); Eosinophils % (auto) 3.4 %; Hematocrit (blood only) 26.9 % (37.0-47.0); Hemoglobin 8.5 g/dl (12.0-16.0); Immature Granulocytes # (auto) 0.03 K/uL (0.01-0.20); Immature Granulocytes % (auto) 0.4 %; Lymphocytes # (auto) 1.36 K/uL (1.20-3.40); Lymphocytes % (auto) 16.4 %; Mean Corpuscular Hemoglobin 29.7 pg (25.0-34.0); Mean Corpuscular Hgb Conc 31.6 g/dL (32.0-36.0); Mean Corpuscular Volume 94.1 fL (80.0-100.0); Mean Platelet Volume 9.3 fL (9.4-12.4); Monocytes # (auto) 0.76 K/uL (0.11-0.59); Monocytes % (auto) 9.2 %; Neutrophils % (auto) 70.1 %; Platelet Count 230 K/uL (130-400); RDW Coefficient of Variation 15.6 % (11.5-14.5); RDW Standard Deviation 53.2 fL (36.4-46.3); Red Blood Count 2.86 M/uL (4.20-5.40); White Blood Count 8.27 K/ul (4.8-10.8)
[2024-07-24 10:21] LABS: Albumin Level 3.9 gm/dl (3.4-5.0); Bilirubin,Total 0.3 mg/dl (0.2-1.0); Total Protein 6.8 gm/dl (6.0-8.3)
--- NOTE | 2024-07-24 10:33 | Nephrology Progress Note ---
Date of Service July 24, 2024 Assessment & Plan (1) ESRD (end stage renal disease) on dialysis: Plan: * HD today according to outpatient orders. call center dispatcher HD RN notified and orders are active in EMR * Outpatient HD Rx: TTS @ [facility] Christel, 4 hours, 180 optiflux, 3K 2.5Ca Qb 450. EDW 108.kg * Renal diet. Calcium acetate can be held pending improvement in GI symptoms. * Continue cinacalcet (2) Anemia: Plan: * Chronic, stable * Will provide Epogen 86728 units with HD today (3) Vomiting: Plan: * Vomiting and diarrhea have resolved. Patient is now tolerating oral diet * Patient has not yet been able to provide a stool sample for enteropathogenic PCR testing * 07/23/2024 gastroenterology recommendations reviewed today -probable viral gastroenteritis. Continue supportive care Admission and Anticipated Discharge Date Admission Date: July 22, 2024 Subjective Ms. Gallardo was evaluated in her hospital room this morning. She was preparing for dialysis. She reports that her nausea, vomiting and diarrhea is subjectively improved. She was able to eat breakfast this morning and keep it down. She has not yet been able to provide a stool sample for viral pathogen testing. She does still complain of some mild dysuria. 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 She has prescriptions for linzess and viberzi but only takes these on an as-needed basis. She has not recently taken her prokinetic agents. Review of Systems Constitutional: no fever Eyes: no problem reported Ear, Nose, Mouth, Throat: no problem reported Respiratory: no cough and no dyspnea Cardiovascular: no chest pain Gastrointestinal: no abdominal pain, no nausea, no vomiting and no diarrhea/loose stools Genitourinary: + dysuria Integumentary: no rash Neurologic: no problem reported Physical Exam Constitutional: not in distress Eyes: PERRL, conjunctivae normal, anicteric sclerae ENMT: external ear and nose normal, oropharynx normal Neck: trachea midline, no thyromegaly Respiratory: normal respiratory effort, lungs clear to auscultation Cardiovascular: RRR, no murmur, no edema Extremities: + AV fistula (+ bruit) Gastrointestinal (Abdomen): normal bowel sounds, soft, nontender, no hepatosplenomegaly Musculoskeletal: Extremities: no cyanosis and no clubbing Skin: no rashes, warm and dry Neurologic: awake; not confused Results & Data Vital Signs (Past 12 Hours) Vital Signs Temp Pulse Pulse Pulse Resp BP BP 07/24/24 09:49 77 125/75 07/24/24 09:38 37.1 C 86 07/24/24 09:37 36.6 C 89 18 110/68 07/24/24 08:00 Pulse Ox O2 Del Method 07/24/24 09:49 07/24/24 09:38 07/24/24 09:37 100 Room Air 07/24/24 08:00 Room Air Laboratory Results Laboratory Results WBC 8.27 K/ul (4.8-10.8) 07/24/24 09:39 RBC 2.86 M/uL (4.20-5.40) L 07/24/24 09:39 Hgb 8.5 g/dl (12.0-16.0) L 07/24/24 09:39 Hct 26.9 % (37.0-47.0) L 07/24/24 09:39 MCV 94.1 fL (80.0-100.0) 07/24/24 09:39 MCH 29.7 pg (25.0-34.0) 07/24/24 09:39 MCHC 31.6 g/dL (32.0-36.0) L 07/24/24 09:39 RDW Std Deviation 53.2 fL (36.4-46.3) H 07/24/24 09:39 RDW Coeff of Hosea 15.6 % (11.5-14.5) H 07/24/24 09:39 Plt Count 230 K/uL (130-400) 07/24/24 09:39 MPV 9.3 fL (9.4-12.4) L 07/24/24 09:39 Immature Gran % (Auto) 0.4 % 07/24/24 09:39 Neut % (Auto) 70.1 % 07/24/24 09:39 Lymph % (Auto) 16.4 % 07/24/24 09:39 [place] % (Auto) 9.2 % 07/24/24 09:39 Eos % (Auto) 3.4 % 07/24/24 09:39 Baso % (Auto) 0.5 % 07/24/24 09:39 Neut # (Auto) 5.80 K/uL (1.40-6.50) 07/24/24 09:39 Lymph # (Auto) 1.36 K/uL (1.20-3.40) 07/24/24 09:39 [place] # (Auto) 0.76 K/uL (0.11-0.59) H 07/24/24 09:39 Eos # (Auto) 0.28 K/uL (0.00-0.50) 07/24/24 09:39 Baso # (Auto) 0.04 K/uL (0.00-0.20) 07/24/24 09:39 Immature Gran # (Auto) 0.03 K/uL (0.01-0.20) 07/24/24 09:39 VBG pH 7.45 (7.36-7.41) H 07/23/24 00:35 VBG pCO2 43 mmHg (38-50) 07/23/24 00:35 VBG pO2 49 mmHg 07/23/24 00:35 VBG HCO3 30 mmol/L 07/23/24 00:35 VBG O2 Saturation 82.3 % 07/23/24 00:35 VBG Base Excess 5.2 mEq/L 07/23/24 00:35 Sodium 135 mmol/L (136-145) L 07/23/24 08:21 Potassium 3.9 mmol/L (3.5-5.1) 07/23/24 08:21 Chloride 92 mmol/L (98-107) L 07/23/24 08:21 Carbon Dioxide 25 mmol/L (21-32) 07/23/24 08:21 Anion Gap 18 (3-11) H 07/23/24 08:21 BUN 25 mg/dl (6-23) H 07/23/24 08:21 Creatinine 7.58 mg/dl (0.6-1.2) H* D 07/23/24 08:21 Est Cr Clr Drug Dosing 11.5 ml/min 07/23/24 08:21 eGFR 6.27 07/23/24 08:21 BUN/Creatinine Ratio 3.3 (10-20) L 07/23/24 08:21 Glucose 93 mg/dl (70-99(Fasting)) 07/23/24 08:21 Lactate 1.1 mmol/L (0.4-2.0) 07/23/24 00:35 Calcium 9.8 mg/dl (8.6-10.3) 07/23/24 08:21 Phosphorus 3.1 mg/dl (2.5-4.9) 07/22/24 19:14 Magnesium 1.7 mg/dl (1.7-2.4) 07/22/24 19:14 Total Bilirubin 0.3 mg/dl (0.2-1.0) 07/24/24 09:39 Direct Bilirubin 0.0 mg/dl (0-0.2) 07/24/24 09:39 AST 15 U/L (13-39) 07/24/24 09:39 ALT 8 U/L (7-52) 07/24/24 09:39 Alkaline Phosphatase 123 U/L (34-104) H 07/24/24 09:39 Troponin I High Sens 37.3 pg/ml (0-14) H 07/22/24 21:11 Total Protein 6.8 gm/dl (6.0-8.3) 07/24/24 09:39 Albumin 3.9 gm/dl (3.4-5.0) 07/24/24 09:39 Globulin 3.6 gm/dl (2.5-4.0) 07/22/24 19:14 Albumin/Globulin Ratio 1.3 (0.9-2) 07/22/24 19:14 Lipase 17 U/L (11-82) 07/22/24 19:14 HCG, Qual Negative (Negative) 07/22/24 19:14 Urine Color Yellow 07/22/24 19:28 Urine Appearance Clear (Clear) 07/22/24 19:28 Urine pH 6.0 (4.5-7.5) 07/22/24 19:28 Ur Specific [place] 1.020 (1.000-1.030) 07/22/24 19:28 Urine Protein 2+ (Negative) H 07/22/24 19:28 Urine Glucose (UA) Negative (Negative) 07/22/24 19:28 Urine Ketones Negative (Negative) 07/22/24 19:28 Urine Blood Trace-intact (Negative) H 07/22/24 19: Urine Nitrite Negative (Negative) 07/22/24 19: Urine Bilirubin 1+ (Negative) H 07/22/24 19:28 Urine Urobilinogen Negative (Negative) 07/22/24 19:28 Ur Leukocyte Esterase 1+ (Negative) H 07/22/24 19:28 Urine RBC 3-5 /hpf (0-2) H 07/22/24 19:28 Urine WBC 21-50 /hpf (0-5) H 07/22/24 19:28 Ur Epithelial Cells >20 /hpf (0-2) H 07/22/24 19:28 Urine Bacteria None Seen (None Seen) 07/22/24 19:28 Impressions Abdomen/Pelvis CT 07/22/24 19:17 Exam(s): CT ABDOMEN + PELVIS Without Contrast EXAM: CT Abdomen and Pelvis Without Intravenous Contrast CLINICAL HISTORY: Reason for exam: lower abd pain, dialysis. TECHNIQUE: Axial computed tomography images of the abdomen and pelvis without intravenous contrast. CTDI is 27.79 mGy and DLP is 1446.64 mGy-cm. Automated exposure control was utilized for the study. A dose lowering technique was utilized adhering to the principles of ALARA. COMPARISON: February 26, 2024 FINDINGS: Limitations: Exam limited secondary to lack of IV contrast. Lung bases: Unremarkable. No mass. No consolidation. ABDOMEN: Liver: Hepatomegaly. Gallbladder and bile ducts: Unremarkable. No calcified stones. No ductal dilation. Pancreas: Unremarkable. No ductal dilation. Spleen: Unremarkable. No splenomegaly. Adrenals: Unremarkable. No mass. Kidneys and ureters: And unchanged from prior exam. Nonobstructing bilateral intrarenal calculi. No hydronephrosis. Innumerable bilateral renal hypodensities likely representing cysts. Stomach and bowel: Unremarkable. No obstruction. No mucosal thickening. PELVIS: Appendix: No findings to suggest acute appendicitis. Bladder: Unremarkable. No stones. Reproductive: Uterus is surgically absent. ABDOMEN and PELVIS: Intraperitoneal space: Unremarkable. No free air. No significant fluid collection. Bones/joints: No acute fracture. No dislocation. Soft tissues: Unremarkable. Vasculature: Unremarkable. No abdominal aortic aneurysm. Lymph nodes: Unremarkable. No enlarged lymph nodes. IMPRESSION: No acute findings in the abdomen or pelvis. Nonobstructing bilateral intrarenal calculi Electronically signed by: Stan Marks MD 07/22/24 21:34 PM Chest X-Ray 07/22/24 19:18 Exam(s): XR CXR 1 VIEW EXAM: XR Chest, 1 View CLINICAL HISTORY: Reason for exam: abd pain. TECHNIQUE: Frontal view of the chest. COMPARISON: November 23, 2022 FINDINGS: Lungs: Unremarkable. No consolidation. Pleural space: Unremarkable. No pneumothorax. Heart: cardiomegaly. Mediastinum: Unremarkable. Normal mediastinal contour. Bones/joints: Unremarkable. No acute fracture. IMPRESSION: No acute findings in the chest. Stable cardiomegaly Electronically signed by: Stan Marks MD 07/22/24 21:30 PM Mesenteric US 07/24/24 08:21 US duplex mesenteric HISTORY: 43 years-old Female eval celiac artery/SMA acute generalized abdominal pain COMPARISON: CT 07/22/2024 TECHNIQUE: Duplex study of the mesenteric vessels was obtained assessing grayscale appearance, color and spectral flow FINDINGS: Limited exam secondary to obscuring bowel gas. Celiac artery demonstrate peak systolic velocities are 113 cm/s, end diastolic velocities of 26 cm/s. Superior mesenteric artery demonstrate peak systolic velocities of 397 cm/s, end diastolic velocities of 100 cm/s. The inferior mesenteric artery demonstrates peak systolic velocities of 57 cm/s and end-diastolic velocities of 13 cm/s. IMPRESSION: 1. Limited study secondary to obscuring bowel gas. 2. Apparent elevated peak systolic velocities within the superior mesenteric artery would correlate with stenosis of greater than 70%. This can be confirmed with CTA. 2. No mesenteric occlusion identified. ACT 112: Negative or not required by law. The above report was generated using voice recognition software. It may contain grammatical, syntax or spelling errors. Electronically signed by: Fidencio Perez M.D. 07/24/2024 9:49 AM Microbiology 07/22/24 19:28 Urine Culture - Preliminary Urine,Clean Catch No growth - Less than 1,000 colonies/mL, Final report to follow. PG Care Time/CCT Total # of Minutes Spent Total Time Spent with Patient: Total time spent is greater than 50% in coordination of care (as documented) at patient's floor/unit and/or counseling patient: Coding Level of Care Code 11119 SUB INP/OBS CARE 3/50MIN Diagnoses ESRD (end stage renal disease) on dialysis N18.6; Z99.2 Anemia D64.9 Vomiting R11.2 Nausea presence: with nausea Vomiting type: unspecified (3) Vomiting Nausea presence: with nausea Vomiting type: unspecified Qualified Code(s): R11.2 - Nausea with vomiting, unspecified
[2024-07-24 10:34] LABS: BUN Creatinine Ratio 3.5 (10-20); Calcium 9.2 mg/dl (8.6-10.3); Creatinine Clr Calc Pharmacy 8.2 ml/min; Estimated Average Glucose 91 mg/dl; Hemoglobin A1C 4.8 % (4.5-5.6); Magnesium 1.7 mg/dl (1.7-2.4)
[2024-07-24 10:36] LABS: Thyroid Stimulating Hormone 0.386 uIu/ml (0.300-4.500)
[2024-07-24] MEDS: EPOETIN ALFA 20,000 UNITS/ML VIAL IV ONE (11:30)
[2024-07-24] MEDS: DICYCLOMINE HCL 10 MG CAP PO PRN (14:23)
[2024-07-24] MEDS: HYDROmorphone INJ 0.5 MG/0.5 ML SYR IV PRN (14:29)
[2024-07-24] MEDS: CHOLECALCIFEROL 25 MCG (1000 UNITS) TAB PO SCH (14:29)
[2024-07-24] MEDS: HEPARIN SOD 5,000 UNIT/0.5 ML VIAL SQ SCH (20:40)
[2024-07-25 06:20] LABS: Mean Corpuscular Hemoglobin 29.6 pg (25.0-34.0); Mean Corpuscular Hgb Conc 30.8 g/dL (32.0-36.0); Mean Corpuscular Volume 96.3 fL (80.0-100.0); Mean Platelet Volume 9.8 fL (9.4-12.4); Platelet Count 220 K/uL (130-400); RDW Coefficient of Variation 15.7 % (11.5-14.5); RDW Standard Deviation 54.5 fL (36.4-46.3); White Blood Count 6.62 K/ul (4.8-10.8)
[2024-07-25 06:54] LABS: Albumin Globulin Ratio 1.3 (0.9-2); Albumin Level 3.6 gm/dl (3.4-5.0); BUN Creatinine Ratio 2.4 (10-20); Bilirubin,Total 0.3 mg/dl (0.2-1.0); Calcium 8.6 mg/dl (8.6-10.3); Creatinine Clr Calc Pharmacy 11.8 ml/min; Globulin 2.7 gm/dl (2.5-4.0); Magnesium 1.7 mg/dl (1.7-2.4); Potassium 3.8 mmol/L (3.5-5.1); Total Protein 6.3 gm/dl (6.0-8.3)
--- NOTE | 2024-07-25 07:45 | Hospitalist Progress Note ---
Date of Service July 25, 2024 Assessment & Plan (1) Superior mesenteric artery stenosis: Plan: 43yo female with history of ESRD on HD presenting with several days of nausea, vomiting, diarrhea, PO intolerance and lower abdominal pain. Patient feels that her symptoms are likely secondary to UTI, however, UA with pyuria, >20 epithelial cells and no bacteria - culture is pending. . She did receive 2gm of Ceftriaxone in the ER. No recent antibiotic use, no sick contacts. CTAP on admission without acute finding but further evaluation of her chart and prior imaging given upper abdominal discomfort ?concerns for possible underlying GB issue (however has had extensive workup which was negative in the past) vs ? underlying issue w/ SMA or celiac artery disease in ESRD patient on HD and discussed with GI who was consulted yesterday for further eval but no further recs for imaging and to await stool studies initially Lactic 1.1 Given my concerns for issue w/ SMA vs celiac artery w/ upper abd pain not improved w/ PPI BID (and likely masked w/ prn Bentyl and ongoing for >1yr in duration with normal RUQ US in the past as well as HIDA scans), ordered MESENTERIC DUPLEX for further eval --> Report w/ "Apparent elevated peak systolic velocities within the superior mesenteric artery would correlate with stenosis of greater than 70%. This can be confirmed with CTA. No mesenteric occlusion identified. " Heparin SQ BID added for DVT proph in meantime given Is ESRD patient on HD w/ oliguria and call to Dr Crawford given she underwent HD this morning given need for contrast for CTA and discussion to plan for CTA on 07/25 and then he will schedule her for HD on WEDNESDAY 07/25 Labs stable/improved following HD 07/24 (cut short by1 hr due to critical patient in ICU) Given US as above, ordering CT angio today for further eval, further orders pending findings Nephrology assistance appreciated given need for contrast and will plan for HD session tomorrow 07/26 +bowel movement, decreased nausea but ongoing pain w/ eating suspected due to above, also can have diarrhea from intestinal malabsorption from stenosis Dilaudid increased to 0.5mg IV as needed for pain, oxycodone for mod-severe 1st line and reports effective pain control w/ this regimen and will continue Possible vascular consult pending CTA results. (2) Vitamin D deficiency: Plan: ?suspect 2nd hyperparathyroidism from CKD as well w/ elevated ALP checked, LOW 14.8, PO replacement started/would continue at ma. ALP decreased on repeat, monitor (3) Dialysis patient: Plan: ESRD on HD q T/R/S. R eceived treatment on 07/22 without improvement and presented for above Continues home cinacalcet/phoslo, nephrology consulted as above Nephrology consulted for HD, underwent tx 07/24 as above and planning for repeat session FRIDAY given CTA w/ contrast Iron studies, low iron/trans% sat with ferritin 38.7 and will order dose Venofer IV x 1 given acute on chronic anemia. Fecal occult for completeness Appears nephrology also ordered venofer following however has been retimed for 200mg IV daily starting 07/26 after today's 300mg dose (4) Hypertension: Plan: Elevated BP upon arrival - patient received IV Labetalol with improved blood pressure BP stable in hospital setting at present on home Labetalol 800mg po TID. Continues on amlodipine Hydration provided as above x 1L, HD as above BP currently stable 113/75 and will monitor Hyperlipidemia-Continue Atorvastatin (5) UTI (urinary tract infection): Plan: Possible UTI. UA with no bacteria. She received Ceftriaxone 2gm which should cover her x 24 hours and has been resumed daily (got 2 doses) Urine cx neg, sx resolved reportedly and will STOP. ?cystitis (6) Iron deficiency: Plan: checked due to hgb level w/ CKD Iron 33, trans % sat 12% and ferritin 38.7. Venofer IV x 1 to be provided, consider repeat dose for tomorrow. check fecal occult w/ next BM monitor CBC (7) Diffuse abdominal pain: Plan: suspect cause #1 but also could be having issues w/ other vasculature and planning CTA as above Improved/stable pain on exam and will await results CTA as outlined Plan Dispo: continued inpatient stay and changed to admission given ongoing inpatient stay Heparin SQ BID for DVT prophylaxis, planning for CTA as outlined tomorrow and HD for friday. Further consults/recs pending CTA results. Admission and Anticipated Discharge Date Admission Date: July 24, 2024 Supervising Physician Co-Signing Physician Notes The patient was not seen by me. The chart was reviewed. Case discussed with RENNY Willis. Agree with assessment and plan Subjective Evaluated this morning, resting in bed. Ate some breakfast and having discomfort following eating. Waiting to go down for CTA today, nephrology in room during encounter and discussed planning for HD tomorrow given need for contrast for imaging today. No CP/SOB at this time but ongoing epigastric discomfort/right upper discomfort. Pending CTA, possible consult for specialist for possible stent if needed for stenosis/symptoms. Questions/concerns addressed at this time. Physical Exam 2 Physical Exam: General: 43yo female resting in bed, NAD but fatigued/tired appearing and ongoing abdominal pain following eating, nephrology in room HEENT: head atraumatic, normocephalic, mm stable/improved, trachea midline Resp: even/unlabored, air entry bilaterally, no w/c/r, on room air CV: RRR, faint systolic murmur, no significant LE edema/calf tenderness GI+BS throughout, less distension but still slightly distended, +tenderness to palpation epigastric/upper abdominal region, no rigidity/guarding ?abd bruit no oconnor MSK/Neuro: nonfocal, answering questions appropriately Psych: AOx3, cooperative with exam Results & Data Results & Data Vital Signs (Past 12 Hours) Vital Signs Temp Pulse Resp BP Pulse Ox O2 Del Method 07/24/24 20:39 Room Air 07/24/24 20:24 36.5 C 88 18 119/75 96 Room Air Laboratory Results 07/25/24 05:29 07/25/24 05:29 Diagnostic Findings Mesenteric US 07/24/24 08:21 US duplex mesenteric HISTORY: 43 years-old Female eval celiac artery/SMA acute generalized abdominal pain COMPARISON: CT 07/22/2024 TECHNIQUE: Duplex study of the mesenteric vessels was obtained assessing grayscale appearance, color and spectral flow FINDINGS: Limited exam secondary to obscuring bowel gas. Celiac artery demonstrate peak systolic velocities are 113 cm/s, end diastolic velocities of 26 cm/s. Superior mesenteric artery demonstrate peak systolic velocities of 397 cm/s, end diastolic velocities of 100 cm/s. The inferior mesenteric artery demonstrates peak systolic velocities of 57 cm/s and end-diastolic velocities of 13 cm/s. IMPRESSION: 1. Limited study secondary to obscuring bowel gas. 2. Apparent elevated peak systolic velocities within the superior mesenteric artery would correlate with stenosis of greater than 70%. This can be confirmed with CTA. 2. No mesenteric occlusion identified. ACT 112: Negative or not required by law. The above report was generated using voice recognition software. It may contain grammatical, syntax or spelling errors. Electronically signed by: Fidencio Perez M.D. 07/24/2024 9:49 AM PG Care Time/CCT Total # of Minutes Spent Total Time Spent with Patient: Total time spent is greater than 50% in coordination of care (as documented) at patient's floor/unit and/or counseling patient: Coding Level of Care Code 93705 SUB INP/OBS CARE 3/50MIN Diagnoses Superior mesenteric artery stenosis K55.1 Vitamin D deficiency E55.9 Dialysis patient Z99.2 Hypertension I10 Hypertension type: unspecified UTI (urinary tract infection) N30.00 Hematuria presence: without hematuria Urinary tract infection type: acute cystitis Iron deficiency E61.1 Diffuse abdominal pain R10.84 (4) Hypertension Hypertension type: unspecified Qualified Code(s): I10 - Essential (primary) hypertension (5) UTI (urinary tract infection) Hematuria presence: without hematuria Urinary tract infection type: acute cystitis Qualified Code(s): N30.00 - Acute cystitis without hematuria
--- NOTE | 2024-07-25 08:45 | Nephrology Progress Note ---
Date of Service July 25, 2024 Assessment & Plan (1) ESRD (end stage renal disease) on dialysis: Plan: * Volume status and electrolyte balance is acceptable. No acute indication for hemodialysis this morning. Will plan next treatment for tomorrow due to abdo cornelia CTA that is scheduled for this afternoon * Outpatient HD Rx: TTS @ [facility], 4 hours, 180 optiflux, 3K 2.5Ca Qb 450. EDW 108.kg * Renal diet. Calcium acetate can be held pending improvement in GI symptoms. * Continue cinacalcet (2) Anemia: Plan: * Epogen 64876 units IV provided with HD 07/24/2024 * Hemoglobin is again trending downward * Iron saturation 12%, ferritin 38.7 * Will order Venofer 200 mg IV daily x 5 doses starting today (3) Vomiting: Plan: * Vomiting and diarrhea have resolved. Patient is now tolerating oral diet * Patient has not yet been able to provide a stool sample for enteropathogenic PCR testing * 07/23/2024 gastroenterology recommendations reviewed today -probable viral gastroenteritis. Continue supportive care * 07/24/2024 mesenteric US - Apparent elevated peak systolic velocities within the superior mesenteric artery would correlate with stenosis of greater than 70%. This can be confirmed with CTA. Patient is scheduled for CTA this afternoon. Will review results once available Admission and Anticipated Discharge Date Admission Date: July 24, 2024 Subjective Ms. Gallardo was evaluated in her hospital room this morning. She complained of mild abdominal discomfort and noted that she was scheduled for a CT angiogram of the abdomen later this morning. Her nausea has resolved. She has had no further diarrhea. Dialysis yesterday was cut short by 1 hour to allow manager staffing to emergently dialyze a critical patient patient in the ICU. Ms. Gallardo currently denies dyspnea or uremic symptoms Review of Systems Constitutional: no fever Eyes: no problem reported Ear, Nose, Mouth, Throat: no problem reported Respiratory: no cough and no dyspnea Cardiovascular: no chest pain Gastrointestinal: no abdominal pain, no nausea, no vomiting and no diarrhea/loose stools Genitourinary: + dysuria Integumentary: no rash Neurologic: no problem reported Physical Exam Constitutional: not in distress Eyes: PERRL, conjunctivae normal, anicteric sclerae ENMT: external ear and nose normal, oropharynx normal Neck: trachea midline, no thyromegaly Respiratory: normal respiratory effort, lungs clear to auscultation Cardiovascular: RRR, no murmur, no edema Extremities: + AV fistula (+ bruit) Gastrointestinal (Abdomen): normal bowel sounds, soft, nontender, no hepatosplenomegaly Musculoskeletal: Extremities: no cyanosis and no clubbing Skin: no rashes, warm and dry Neurologic: awake; not confused Results & Data Vital Signs (Past 12 Hours) Vital Signs Temp Pulse Resp BP Pulse Ox O2 Del Method 07/25/24 08:06 37.3 C 78 18 113/75 99 Room Air Laboratory Results Laboratory Results - last 24 hr 07/24/24 07/25/24 09:39 05:29 WBC 8.27 6.62 RBC 2.86 L 2.70 L Hgb 8.5 L 8.0 L Hct 26.9 L 26.0 L MCV 94.1 96.3 MCH 29.7 29.6 MCHC 31.6 L 30.8 L RDW Std Deviation 53.2 H 54.5 H RDW Coeff of Hosea 15.6 H 15.7 H Plt Count 230 220 MPV 9.3 L 9.8 Immature Gran % (Auto) 0.4 Neut % (Auto) 70.1 Lymph % (Auto) 16.4 [place] % (Auto) 9.2 Eos % (Auto) 3.4 Baso % (Auto) 0.5 Neut # (Auto) 5.80 Lymph # (Auto) 1.36 [place] # (Auto) 0.76 H Eos # (Auto) 0.28 Baso # (Auto) 0.04 Immature Gran # (Auto) 0.03 Sodium 134 L 137 Potassium 4.0 3.8 Chloride 93 L 101 Carbon Dioxide 24 25 Anion Gap 17 H 11 BUN 37 H 18 Creatinine 10.66 H* D 7.43 H* D Est Cr Clr Drug Dosing 8.2 11.8 eGFR 4.16 6.42 BUN/Creatinine Ratio 3.5 L 2.4 L Glucose 99 100 H Estimat Average Glucose 91 Hemoglobin A1c 4.8 Calcium 9.2 8.6 Magnesium 1.7 1.7 Iron Pending TIBC Pending Unsaturated IBC Pending Transferrin % Sat Pending Ferritin Pending Total Bilirubin 0.3 0.3 Direct Bilirubin 0.0 AST 15 14 ALT 8 8 Alkaline Phosphatase 123 H 114 H Total Protein 6.8 6.3 Albumin 3.9 3.6 Globulin 2.7 Albumin/Globulin Ratio 1.3 25-OH Vitamin D Total 14.8 L TSH 0.386 PG Care Time/CCT Total # of Minutes Spent Total Time Spent with Patient: Total time spent is greater than 50% in coordination of care (as documented) at patient's floor/unit and/or counseling patient: Coding Level of Care Code 24688 SUB INP/OBS CARE 3/50MIN Diagnoses ESRD (end stage renal disease) on dialysis N18.6; Z99.2 Anemia D64.9 Vomiting R11.2 Nausea presence: with nausea Vomiting type: unspecified (3) Vomiting Nausea presence: with nausea Vomiting type: unspecified Qualified Code(s): R11.2 - Nausea with vomiting, unspecified
[2024-07-25 09:19] LABS: Ferritin 38.7 ng/ml (8-388)
[2024-07-25] MEDS: IRON SUCROSE 300 MG in SODIUM CHLORIDE 0.9% 250 ML IV ONE (10:37)
[2024-07-25] MEDS: IRON SUCROSE 200 MG in SODIUM CHLORIDE 0.9% 100 ML IV SCH (12:12)
[2024-07-25] MEDS: OPTIRAY 320 125ml IV ONE (13:19)
--- NOTE | 2024-07-25 14:26 | CT Scan Report ---
EXAMINATION: CT angiogram of the abdomen and pelvis performed after the administration of IV contrast TECHNIQUE: Helical CT angiogram images from the lung bases through the symphysis pubis were obtained with contrast. Coronal and sagittal reformatted images were generated at a workstation for further assessment. Dose reduction techniques were achieved by using automatic exposure control and/or adjustment of mA and/or kV according to patient size and/or use of iterative reconstruction technique. COMPARISON: None HISTORY: Abdominal pain FINDINGS: Lower chest: No consolidation. No pleural effusion or pneumothorax. Liver: No suspicious liver lesions. Portal veins appear patent. Gallbladder: No gallstones. No evidence of acute cholecystitis. Spleen: Normal size. Pancreas: No suspicious pancreatic lesions. The pancreatic duct is not dilated. Adrenal glands: No adrenal nodules. Kidneys: No hydronephrosis or obstructing renal stones. Polycystic kidneys seen bilaterally, which may be acquired or congenital, possibly related to a prolonged history of dialysis or lithium medication use. Bladder / Pelvic organs: Unremarkable. Bowel: No bowel obstruction. No abnormal bowel wall thickening. The appendix is unremarkable. There are a few ingested tablets in the stomach, which appear high attenuating. At the junction of the posterior body and antrum of the stomach, as seen on series 3 image 145, there are a few thin linear foci of hyperenhancement along the mucosa. Lymph nodes: No retroperitoneal, mesenteric, or pelvic lymphadenopathy. Peritoneum / Retroperitoneum: No free fluid or air within the abdomen. Vessels: No infrarenal aortic aneurysm. Mild aortic iliac calcifications. No dissection. The major branch vessels of the aorta are patent. Bones and soft tissues: No suspicious lesion in the bones. There is a section scar in the lower abdominal wall. Significant sclerosis about the SI joints bilaterally, favors degenerative change as a sequelae of prior . IMPRESSION: Within the stomach, at the mucosal surface posteriorly at the junction of the body and antrum, there is an area of thin hyperenhancement, which may represent gastritis, however mild active bleeding could have a similar appearance. Polycystic kidneys, as above. No acute aortic pathology. Major branch vessels of the aorta are patent. Electronically signed by Jacoby Brown 07-25-2024 2:25 PM
[2024-07-25] MEDS ORDERED: PANTOPRAZOLE BOLUS/DRIP IV STA (14:52)
--- NOTE | 2024-07-25 15:17 | Communication Note ---
Date of Service: July 25, 2024 CTA abd/pelvis resulting with thin hyperenhancement within the stomach at mucosal surface posteriorly at the junction of the body and antrum, which may represent gastritis but also MILD ACTIVE BLEEDING can have similar appearance. Given ALDO and receiving Venofer, and already on PPI BID, further discussion with patient given reports EGD in past when eval prior w/ "light spot" they were going to keep an eye on. Suspect w/ hgb 8.0 on AM labs despite dialysis that very possible having active GI bleeding and given already on PPI PO BID prior to admission, orders to place on hold and START PROTONIX GTT. Further discussion with patient noting she does have occasional "DARK STOOLS" but was told from constipation/straining. Educated DARK stools likely indicating UGI source and likely source for her ongoing abdominal discomfort. Message to GI conveyor feeder offbearer this weekend (GI consulted last week sent for concerns upper abd pain/RUQ pain) and response received "I will forward this to [facility] tomorrow". No recommendations provided but will again continue w/ plan for protonix GTT and clear liquids for dinner and make NPO at midnight for hopeful EGD for eval in AM 07/26. Will monitor serial H&H q8h, type/screen in event requiring blood. Notable was provided Heparin SQ x 2 for initial concerns stenosis of SMA, however placing any further chemoprophylaxis on HOLD. Did also message Dr Zuniga who will be GI provider conveyor feeder offbearer regarding case/concerns and consideration for EGD for further evaluation. VSS at present time but if further drop or changes would move to monitored bed. Should also be noted that patient w/ recent pill endoscopy with reports scattered erythematous spots in ileus with polypoid tissue noted in proximal duodenal bulb with recommendation for REPEAT EGD w/ attention to proximal duodenal bulb.
[2024-07-25] MEDS: PANTOprazole 80 MG in DEXTROSE 5% 100 ML IV ONE (15:31)
[2024-07-25] MEDS: PANTOprazole 40 MG in DEXTROSE 5% MINI-B 100 ML IV SCH (15:51)
[2024-07-25 16:12] LABS: Hematocrit (blood only) 24.7 % (37.0-47.0); Hemoglobin 7.9 g/dl (12.0-16.0)
[2024-07-25] MEDS ORDERED: SODIUM CHLORIDE 0.9% 50 ML IV PRN (16:15)
[2024-07-25] MEDS ORDERED: SODIUM CHLORIDE 0.9% 100 ML IV PRN (16:15)
--- NOTE | 2024-07-25 16:59 | Communication Note ---
Date of Service: July 25, 2024 Eval again this evening, protonix bolus provided and gtt started. Hgb 7.9 and did obtain type/screen and crossed for 1unit if needed. Patient reports she has had blood transfusion in the past without issue and discussed repeat hgb this evening and if drops further will plan to transfuse 1u PRBC. Vitals stable at present and pain improving/stable for now but given concerns for acute GIB in patient ESRD on HD planning to move to med/telemetry bed for closer monitoring. Patient updated at bedside on plan and consent for blood obtained under directo in of supervising provider to prvent need to obtain consent this evening if hgb does drop further. NPO order is in for this evening and GI for tomorrow has been notified/aware and hopeful for Ms Claire to undergo EGD tomorrow morning for further evaluation/treatment of any acute bleeding. Any further chemoproph will be avoided, SCD order in place.
[2024-07-26] MEDS ORDERED: HEPARIN SOD (PORCINE) 1000 UNIT/ML IV ONE (07:00)
--- NOTE | 2024-07-26 07:37 | Hospitalist Progress Note ---
Date of Service July 26, 2024 Assessment & Plan (1) GIB (gastrointestinal bleeding): Plan: 43yo female with history of ESRD on HD presenting with several days of nausea, vomiting, diarrhea, PO intolerance and lower abdominal pain. Patient feels that her symptoms are likely secondary to UTI, however, UA with pyuria, >20 epithelial cells and no bacteria - culture is pending. . She did receive 2gm of Ceftriaxone in the ER. No recent antibiotic use, no sick contacts. CTAP on admission without acute finding but further evaluation of her chart and prior imaging given upper abdominal discomfort ?concerns for possible underlying GB issue (however has had extensive workup which was negative in the past) vs ? underlying issue w/ SMA or celiac artery disease vs underlying bleeding in ESRD patient on HD and discussed with GI who was last week/rec'd to monitor stool studies/continue PPI PO BID Notable patient w/ acute on chronic anemia, iron studies obtained and iron/trans % sat and ferritin LOW and Venofer IV started/continued Nephrology following given ESRD and planned for CT Angio for further eval underlying issue given ongoing pain/need for contrast CTA noting concerns for MILD ACTIVE BLEEDING (thin hyperenhancement within the stomach at mucosal surface posteriorly at the junction of the body and antrum) which fits her epigastric discomfort. --Likely worse w/ recent report she ended up taking an aleeve on Friday x1 for ongoing pain NOT relieved by any other medication without improvement/nothing further. (does NOT typically take ANY NSAIDs since starting HD) and reports occasional darkness to her BMs which was told "constipation" related previously --Prior scopes w/ EGDs in the past as well as recent pill endoscopy , noting prior w/ "light spot" they were going to keep an eye on. Report noting recs for repeat EGD at that time. GI consult/multiple messages sent over the weekend as noted in communication notes (07/25) and has placed on protonix gtt/continued and made NPO at midnight for eval/hopeful EGD and consent for blood/1u ordered on hold and serial blood counts ordered and moved to monitored bed given concerns for active GI bleeding. 07/26 Hgb 7.5 this morning, 1u PRBC to be transfused with HD. INR 1.0 Remains NPO and continues on protonix gtt and discussion with GI and planning for EGD following HD for evaluation. Further recs pending EGD Will type/cross 1 additional unit to be available if needed however will plan to continue Venofer IV for ALDO as well while inpatient NO FURTHER CHEMOPROPH given concerns for GIB (was provided Heparin SQ x 2 for DVT proph), SCDs ordered/to continue Continue to monitor blood counts/labs (2) Superior mesenteric artery stenosis: Plan: concerns for such given mesenteric US ordered however more likely GIB as above and planning for EGD this afternoon. (3) Vitamin D deficiency: Plan: ?suspect 2nd hyperparathyroidism from CKD as well w/ elevated ALP checked, LOW 14.8, PO replacement started/would continue at [place]. ALP decreased on repeat, monitor (4) Dialysis patient: Plan: ESRD on HD q T/R/S. R eceived treatment on 07/22 without improvement and presented for above Continues home cinacalcet/phoslo, nephrology consulted as above Nephrology consulted for HD, underwent tx 07/24 as above and planning for repeat session TODAY 07/26 given CTA w/ contrast and EGD following Iron studies obtained/LOW, suspect acute on chronic in patient w/ ESRD on HD however likely WORSE given #1 Fecal occult ordered but reports black to stools occasionally and EGD planned as above (5) Hypertension: Plan: Elevated BP upon arrival - patient received IV Labetalol with improved blood pressure BP stable in hospital setting at present on home Labetalol 800mg po TID. Continues on amlodipine when taking PO Hyperlipidemia-Continue Atorvastatin (6) UTI (urinary tract infection): Plan: Possible UTI. UA with no bacteria. Was given Ceftriaxone 2gm IV x2, urine cx negative and DISCONTINUED (7) Iron deficiency: Plan: checked due to hgb level w/ CKD Iron 33, trans % sat 12% and ferritin 38.7. Venofer IV continued, 1u PRBC as above for hgb 7.5 in ESRD patient w/ concerns for active GIB check fecal occult w/ next BM however see above monitor CBC, PRBC as needed w/ HD (8) Diffuse abdominal pain: Plan: suspect cause #1 and will continue protonix gtt, dilaudid frequency changed w/ improvement and will continue. +BMs w/ use and should monitor as above Plan Dispo: continued inpatient stay on protonix gtt, PRBC as outlined and planning for EGD folllowing HD today. Further recs pending EGD results Admission and Anticipated Discharge Date Admission Date: July 24, 2024 Subjective EVal this morning in HD, getting treatment. Ongoing/unchanged epigastric discomfort. Discussed hgb and planning to give her 1u PRBC w/ HD this morning and continues on protonix gtt and planning for EGD this afternoon. She does avoid NSAIDs since being on HD completely but given her ongoing pain/discomfort this friday she did take 1 aleeve, which did not improve pain and made worse and subsequently not taking any further. Rec complete avoidance tonia on HD but w/ concerns for GIB. Breathing stable, no CP at present. Will plan for EGD this afternoon for concerns GIB and monitor blood counts/exam. Questions/concerns addressed at this time. Physical Exam Physical Exam: General: 43yo female seen in dialysis unit, laying in bed, NAD but ongoing epigastric pain -- ok w/ PRBC as discussed prior and to get shortly HEENT: head atraumatic, normocephalic, mm stable/improved, trachea midline Resp: even/unlabored, slightly diminished in the bases but remains on RA, no tachypnea, RR 18 CV: RRR, faint systolic murmur, no significant LE edema/calf tenderness, LILIANA fistula +bruit GI+BS throughout, slight distension/obese, +tenderness EPIGASTRIC region, voluntary guarding but no rigidity/peritoneal signs no oconnor MSK/Neuro: nonfocal, answering questions appropriately Psych: AOx3, cooperative with exam Results & Data Results & Data Vital Signs (Past 12 Hours) Vital Signs Temp Pulse Pulse Pulse Resp BP Pulse Ox 07/26/24 07:00 73 07/26/24 04:03 37 C 70 18 112/70 94 07/25/24 23:18 37 C 68 16 115/77 95 07/25/24 21:35 73 07/25/24 19:52 37.1 C 72 18 113/73 93 07/25/24 19:45 O2 Del Method 07/26/24 07:00 07/26/24 04:03 Room Air 07/25/24 23:18 Room Air 07/25/24 21:35 07/25/24 19:52 Room Air 07/25/24 19:45 Room Air Laboratory Results 07/25/24 07/25/24 07/25/24 Range/Units 23:24 15:33 05:29 Hgb 8.0 L 7.9 L (12.0-16.0) g/dl Hct 26.0 L 24.7 L (37.0-47.0) % Iron 33 L (35-150) mcg/dl TIBC 265 (250-450) mcg/dl Unsaturated IBC 232 (155-355) mcg/dl Transferrin % Sat 12 L (15-50) % Ferritin 38.7 (8-388) ng/ml Blood Type O Positive Antibody Screen NEGATIVE Crossmatch See Detail Diagnostic Findings Abdomen/Pelvis CTA 07/25/24 07:48 EXAMINATION: CT angiogram of the abdomen and pelvis performed after the administration of IV contrast TECHNIQUE: Helical CT angiogram images from the lung bases through the symphysis pubis were obtained with contrast. Coronal and sagittal reformatted images were generated at a workstation for further assessment. Dose reduction techniques were achieved by using automatic exposure control and/or adjustment of mA and/or kV according to patient size and/or use of iterative reconstruction technique. COMPARISON: None HISTORY: Abdominal pain FINDINGS: Lower chest: No consolidation. No pleural effusion or pneumothorax. Liver: No suspicious liver lesions. Portal veins appear patent. Gallbladder: No gallstones. No evidence of acute cholecystitis. Spleen: Normal size. Pancreas: No suspicious pancreatic lesions. The pancreatic duct is not dilated. Adrenal glands: No adrenal nodules. Kidneys: No hydronephrosis or obstructing renal stones. Polycystic kidneys seen bilaterally, which may be acquired or congenital, possibly related to a prolonged history of dialysis or lithium medication use. Bladder / Pelvic organs: Unremarkable. Bowel: No bowel obstruction. No abnormal bowel wall thickening. The appendix is unremarkable. There are a few ingested tablets in the stomach, which appear high attenuating. At the junction of the posterior body and antrum of the stomach, as seen on series 3 image 145, there are a few thin linear foci of hyperenhancement along the mucosa. Lymph nodes: No retroperitoneal, mesenteric, or pelvic lymphadenopathy. Peritoneum / Retroperitoneum: No free fluid or air within the abdomen. Vessels: No infrarenal aortic aneurysm. Mild aortic iliac calcifications. No dissection. The major branch vessels of the aorta are patent. Bones and soft tissues: No suspicious lesion in the bones. There is a section scar in the lower abdominal wall. Significant sclerosis about the SI joints bilaterally, favors degenerative change as a sequelae of prior . IMPRESSION: Within the stomach, at the mucosal surface posteriorly at the junction of the body and antrum, there is an area of thin hyperenhancement, which may represent gastritis, however mild active bleeding could have a similar appearance. Polycystic kidneys, as above. No acute aortic pathology. Major branch vessels of the aorta are patent. Electronically signed by Jacoby Brown 07-25-2024 2:25 PM PG Care Time/CCT Total # of Minutes Spent Total Time Spent with Patient: Total time spent is greater than 50% in coordination of care (as documented) at patient's floor/unit and/or counseling patient: Coding Level of Care Code 55848 SUB INP/OBS CARE 3/50MIN Diagnoses GIB (gastrointestinal bleeding) K92.2 Superior mesenteric artery stenosis K55.1 Vitamin D deficiency E55.9 Dialysis patient Z99.2 Hypertension I10 Hypertension type: unspecified UTI (urinary tract infection) N30.00 Hematuria presence: without hematuria Urinary tract infection type: acute cystitis Iron deficiency E61.1 Diffuse abdominal pain R10.84 (5) Hypertension Hypertension type: unspecified Qualified Code(s): I10 - Essential (primary) hypertension (6) UTI (urinary tract infection) Hematuria presence: without hematuria Urinary tract infection type: acute cystitis Qualified Code(s): N30.00 - Acute cystitis without hematuria
[2024-07-26] MEDS: HYDROmorphone INJ 0.5 MG/0.5 ML SYR IV STA (08:33)
--- NOTE | 2024-07-26 08:52 | Nephrology Progress Note ---
Date of Service July 26, 2024 Assessment & Plan (1) ESRD (end stage renal disease) on dialysis: Plan: * Will continue heparin free HD today. No change to current Rx * Outpatient HD Rx: TTS @ [facility], 4 hours, 180 optiflux, 3K 2.5Ca Qb 450. EDW 108.kg * Renal diet. Calcium acetate can be held pending improvement in GI symptoms. * Continue cinacalcet (2) Anemia: Plan: * Epogen 62848 units IV provided with HD 07/24/2024 * Hemoglobin is again trending downward * Iron saturation 12%, ferritin 38.7 * Day #2 of 6 IV Venofer * Hgb 7.5 this am. Primary service to transfuse 1 unit PRBC while on HD * 07/25/24 abdominal CTA results reviewed w/ patient this am. Possible are of bleeding within the body/antrum. Await GI evaluation. May need EGD (3) Vomiting: Plan: * Vomiting and diarrhea have resolved. Patient is now tolerating oral diet * Patient has not yet been able to provide a stool sample for enteropathogenic PCR testing * 07/23/2024 gastroenterology recommendations reviewed today -probable viral gastroenteritis. Continue supportive care * 07/24/2024 mesenteric US - Apparent elevated peak systolic velocities within the superior mesenteric artery would correlate with stenosis of greater than 70%. This can be confirmed with CTA. 07/25/24 CTA revealed that aortic branch vessels are patent Admission and Anticipated Discharge Date Admission Date: July 24, 2024 Subjective Ms. Gallardo was evaluated while on HD this morning. She reports mild abdominal discomfort but denies N&V, diarrhea. Dysuria has resolved Review of Systems Constitutional: no fever Eyes: no problem reported Ear, Nose, Mouth, Throat: no problem reported Respiratory: no cough and no dyspnea Cardiovascular: no chest pain Gastrointestinal: no abdominal pain, no nausea, no vomiting and no diarrhea/loose stools Integumentary: no rash Neurologic: no problem reported Physical Exam Constitutional: not in distress Eyes: PERRL, conjunctivae normal, anicteric sclerae ENMT: external ear and nose normal, oropharynx normal Neck: trachea midline, no thyromegaly Respiratory: normal respiratory effort, lungs clear to auscultation Cardiovascular: RRR, no murmur, no edema Extremities: + AV fistula (+ bruit) Gastrointestinal (Abdomen): normal bowel sounds, soft, nontender, no hepatosplenomegaly Musculoskeletal: Extremities: no cyanosis and no clubbing Skin: no rashes, warm and dry Neurologic: awake; not confused Results & Data Vital Signs (Past 12 Hours) Vital Signs Temp Pulse Pulse Pulse Resp BP Pulse Ox 07/26/24 07:46 37.0 C 72 16 117/76 94 07/26/24 07:00 73 07/26/24 04:03 37 C 70 18 112/70 94 07/25/24 23:18 37 C 68 16 115/77 95 07/25/24 21:35 73 O2 Del Method 07/26/24 07:46 Room Air 07/26/24 07:00 07/26/24 04:03 Room Air 07/25/24 23:18 Room Air 07/25/24 21:35 Laboratory Results Laboratory Results - last 24 hr 07/25/24 07/25/24 07/25/24 05:29 15:33 23:24 Hgb 7.9 L 8.0 L Hct 24.7 L 26.0 L Iron 33 L TIBC 265 Unsaturated IBC 232 Transferrin % Sat 12 L Ferritin 38.7 Blood Type O Positive Antibody Screen NEGATIVE Crossmatch See Detail Diagnostic Findings 07/25/24 CTA abdomen: 1. Within the stomach, at the mucosal surface posteriorly at the junction of the body and antrum, there is an area of thin hyperenhancement, which may represent gastritis, however mild active bleeding could have a similar appearance. 2. Polycystic kidneys, as above. 3. No acute aortic pathology. Major branch vessels of the aorta are patent. PG Care Time/CCT Total # of Minutes Spent Total Time Spent with Patient: Total time spent is greater than 50% in coordination of care (as documented) at patient's floor/unit and/or counseling patient: Coding Level of Care Code 45226 SUB INP/OBS CARE 3/50MIN Diagnoses ESRD (end stage renal disease) on dialysis N18.6; Z99.2 Anemia D64.9 Vomiting R11.2 Nausea presence: with nausea Vomiting type: unspecified (3) Vomiting Nausea presence: with nausea Vomiting type: unspecified Qualified Code(s): R11.2 - Nausea with vomiting, unspecified
[2024-07-26 09:59] LABS: Hemoglobin 7.5 g/dl (12.0-16.0); Mean Corpuscular Hgb Conc 31.3 g/dL (32.0-36.0); Mean Platelet Volume 9.9 fL (9.4-12.4); Nucleated RBC # (auto) 0.02 K/uL (0.00-0.12); Nucleated RBC % (auto) 0.3 %; Platelet Count 213 K/uL (130-400); RDW Coefficient of Variation 15.6 % (11.5-14.5); RDW Standard Deviation 54.5 fL (36.4-46.3); White Blood Count 6.16 K/ul (4.8-10.8)
[2024-07-26] MEDS ORDERED: SODIUM CHLORIDE 0.9% 100 ML IV PRN ×2 (10:01→12:14)
[2024-07-26] MEDS ORDERED: SODIUM CHLORIDE 0.9% 50 ML IV PRN ×2 (10:01→12:14)
--- NOTE | 2024-07-26 10:03 | History & Physical Bridge Note ---
Date of Service July 26, 2024 History & Physical Bridge Note I have reviewed the History & Physical and in the interval since the performance of the History & Physical I have noted the following changes of clinical significance: H/H 7.5/24.0. CT imaging over the weekend questioned gastritis vs mild GI ble eding. Patient has had an EGD, small bowel enteroscopy, & colonoscopy for anemia in the past year without alarming findings. No overt GI bleeding at present. She does take a PPI at home. Keep NPO for EGD today. Supervising Physician Co-Signing Physician Notes I examined the patient and reviewed patient's chart , laboratory data and imaging studies. I agree with with assessment and plan of care as suggested by advanced practice provider
--- NOTE | 2024-07-26 10:07 | Anesthesiology Consultation ---
Date of Service July 26, 2024 Assessment & Plan Chart Review Chart Review: Acceptable Risk for Surgery and Patient NOT seen in Pre Admission Testing Consults Requested none History Surgery Operation Date: 07/26/24 16:30 Proposed Procedures p Esophagogastroduodenoscopy Nadia Zuniga MD Height/Weight Height: 5 ft 4 in Weight: 110.1 kg Allergies Allergy/AdvReac Type Severity Reaction Status Date / Time pneumococcal 7-valent Allergy Severe Swelling Verified 06/07/24 09:59 conjugate to of [From Prevnar] Lip/Tongue/Throat Medications Home Medications Medication Instructions Recorded Confirmed Last Taken calcium acetate(phosphat bind) 667 2,001 mg PO TIDM 09/30/18 07/22/24 07/21/24 mg capsule atorvastatin 10 mg tablet (Lipitor) 10 mg PO QPM #90 tabs 03/08/20 07/22/24 07/21/24 cinacalcet 30 mg tablet 30 mg PO QAM 08/02/20 07/22/24 07/21/24 amlodipine 5 mg tablet 5 mg PO QAM 11/23/22 07/22/24 07/21/24 pantoprazole 40 mg tablet,delayed 40 mg PO BID 90 days #180 tabs 11/07/23 07/22/24 07/21/24 release linaclotide 145 mcg capsule 145 mcg PO QPM PRN Constipation 12/02/23 07/22/24 12/07/23 (Linzess) rizatriptan 10 mg disintegrating 10 mg PO Q2H PRN migraine headache 12/17/23 07/22/24 Unknown tablet (Maxalt-[employer]) 30 days #9 tabs sumatriptan succinate 6 mg/0.5 mL 6 mg (0.5 mL) subcut UD PRN 12/17/23 07/22/24 Unknown subcutaneous pen injector (Imitrex Headache #1 mL STATdose Pen) gabapentin 100 mg capsule 100 mg PO .COMPLEX #120 caps 03/01/24 07/22/24 07/21/24 triamcinolone acetonide 0.1 % 1 applic topical TID #15 grams 06/07/24 07/22/24 Unknown topical ointment dicyclomine 10 mg capsule 10 mg PO TID PRN abdominal pain 06/28/24 07/22/24 Unknown #30 caps labetalol 200 mg tablet 800 mg (4 x 200 mg) PO TID #360 07/20/24 07/22/24 07/21/24 tabs amitriptyline 50 mg tablet 50 mg PO HS 07/22/24 07/22/24 07/21/24 Active Medications Generic Name Dose Route Start Last Admin Trade Name Freq PRN Reason Stop Dose Admin Acetaminophen 1,000 mg 07/23/24 00:12 07/23/24 05:26 Acetaminophen 500 Mg Tab PO 08/22/24 00:11 1,000 mg Q8H PRN Administration Pain or Fever Amitriptyline HCl 50 mg 07/23/24 21:00 07/25/24 19:49 Amitriptyline Hcl 50 Mg Tab PO 08/22/24 20:59 50 mg HS ZACHERY Administration Amlodipine Besylate 5 mg 07/23/24 09:00 07/25/24 08:23 Amlodipine Besylate 5 Mg Tab PO 08/22/24 08:59 5 mg QAM ZACHERY Administration Calcium Acetate 2,001 mg 07/23/24 08:00 07/25/24 17:23 Calcium Acetate 667 Mg Cap/Tab PO 08/22/24 07:59 Not Given TIDM ZACHERY Cinacalcet 30 mg 07/23/24 09:00 07/25/24 08:21 Cinacalcet Hcl 30 Mg Tab PO 08/22/24 08:59 30 mg QAM ZACHERY Administration Dicyclomine HCl 10 mg 07/23/24 00:12 07/25/24 08:22 Dicyclomine Hcl 10 Mg Cap PO 08/22/24 00:11 10 mg TID PRN Administration abdominal pain Docusate Sodium 100 mg 07/23/24 21:00 07/25/24 19:49 Docusate Sodium 100 Mg Cap PO 08/22/24 20:59 100 mg BID ZACHERY Administration Gabapentin 100 mg 07/23/24 14:00 07/25/24 19:50 Gabapentin 100 Mg Cap PO 08/22/24 13:59 100 mg BID@1400,2100 ZACHERY Administration Gabapentin 200 mg 07/23/24 09:00 07/25/24 08:24 Gabapentin 100 Mg Cap PO 08/22/24 08:59 200 mg QAM ZACHERY Administration Pantoprazole Sodium 40 mg/ 100 mls @ 20 mls/hr 07/25/24 15:30 07/26/24 06:46 Dextrose IV 08/24/24 15:29 8 mg/hr Q5H ZACHERY 20 mls/hr Administration 8 MG/HR Labetalol HCl 800 mg 07/23/24 09:00 07/25/24 19:50 Labetalol Hcl 200 Mg Tab PO 08/22/24 08:59 800 mg TID ZACHERY Administration Ondansetron HCl 4 mg 07/23/24 00:12 07/26/24 05:42 Ondansetron Inj 2 Mg/Ml 2 Ml Vial IV 08/22/24 00:11 4 mg Q6H PRN Administration Nausea And Vomiting Oxycodone HCl 5 mg 07/23/24 13:59 07/25/24 19:50 Oxycodone Hcl Ir 5 Mg Tab (Immediate Release) PO 08/06/24 13:58 5 mg Q4H PRN Administration moderate to severe pain Vitamin D 25 mcg 07/24/24 12:00 07/25/24 08:21 Cholecalciferol 25 Mcg (1000 Units) Tab PO 08/23/24 11:59 25 mcg QAM ZACHERY Administration Past Medical History Medical History Recurrent UTI (urinary tract infection) currently on Cefdinir Bilateral carpal tunnel syndrome Hx of migraines Iron deficiency anemia Hyperlipidemia History of asthma PUD (peptic ulcer disease) Hx of renal calculi Lumbar radiculopathy Morbid obesity with BMI of 45.0-49.9, adult Hypertension History of gastric ulcer A-V fistula right arm Past Family History Family History Mother Family history of diabetes mellitus Sister Family history of diabetes mellitus x3 Aunt Heart disease Father Family history of kidney disease Other No family history of adverse response to anesthesia Denies family history of Pancreatic cancer Ovarian cancer Prostate cancer Myocardial infarction Breast cancer Colorectal cancer Uterine cancer Past Surgical History Surgical History H/O tubal ligation History of abdominoplasty repair skin around scar History of section x4 History of esophagogastroduodenoscopy (EGD) History of wisdom tooth extraction Social History Smoking Status: Never smoker Do You Dip or Chew Tobacco: No Hx Alcohol Use: No Hx Substance Use: Yes substance use type: marijuana Last Used Substance Other:: months ago Physical Exam Vital Signs Last Vital Signs Temp 37.0 C 07/26/24 07:46 Pulse 72 07/26/24 07:46 Resp 16 07/26/24 07:46 BP 117/76 07/26/24 07:46 Pulse Ox 94 07/26/24 07:46 O2 Del Method Room Air 07/26/24 07:46 Testing Laboratory Results 07/26/24 09:36 Hemoglobin A1c 4.8 % (4.5-5.6) 07/24/24 09:39 Urine Color Yellow 07/22/24 19:28 Urine Appearance Clear (Clear) 07/22/24 19:28 Urine pH 6.0 (4.5-7.5) 07/22/24 19:28 Ur Specific [place] 1.020 (1.000-1.030) 07/22/24 19:28 Urine Protein 2+ (Negative) H 07/22/24 19:28 Urine Glucose (UA) Negative (Negative) 07/22/24 19:28 Urine Ketones Negative (Negative) 07/22/24 19:28 Urine Nitrite Negative (Negative) 07/22/24 19:28 Ur Leukocyte Esterase 1+ (Negative) H 07/22/24 19:28 Urine RBC 3-5 /hpf (0-2) H 07/22/24 19:28 Urine WBC 21-50 /hpf (0-5) H 07/22/24 19:28 Ur Epithelial Cells >20 /hpf (0-2) H 07/22/24 19:28 Blood Type O Positive 07/25/24 15:33 Antibody Screen NEGATIVE 07/25/24 15:33 07/22/24 19:28 Urine Culture - Final Urine,Clean Catch No growth - less than 1,000 colonies/mL.
[2024-07-26 10:26] LABS: Albumin Level 3.6 gm/dl (3.4-5.0); BUN Creatinine Ratio 2.1 (10-20); Calcium 8.5 mg/dl (8.6-10.3); Creatinine Clr Calc Pharmacy 9.1 ml/min; Magnesium 1.7 mg/dl (1.7-2.4); Phosphorus 3.7 mg/dl (2.5-4.9); Potassium 4.2 mmol/L (3.5-5.1)
[2024-07-26 10:30] LABS: Partial Thromboplastin Time 28 Seconds (21-31)
[2024-07-26] MEDS: HYDROmorphone INJ 0.5 MG/0.5 ML SYR IV PRN (11:24)
[2024-07-26] MEDS: IRON SUCROSE 200 MG in SODIUM CHLORIDE 0.9% 100 ML IV SCH (11:50)
--- NOTE | 2024-07-26 14:19 | GI REPORT ---
[facility] Patient: MARIUM TREJO : 1980 Sex at : Female Age: 43 Years Procedure: Upper GI endoscopy Date: 07/26/2024 Attending Physician: Ladarius Zuniga MD Referring MD: Referred Self Indications: - Epigastric abdominal pain - Abnormal CT scan suggestive of bleeding from the gastric antrum. Medications: - Monitored Anesthesia Care Complications: - No immediate complications. Estimated Blood Loss: - Estimated blood loss: None. Procedure: - The egd scope was introduced through the mouth and advanced to the second part of the duodenum. - The upper GI endoscopy was accomplished with ease. - The patient tolerated the procedure well. Findings: - The Z-line was irregular and was found 36 cm from the incisors. - The examined esophagus was normal. There was no evidence of esophageal varices, esophagitis or Turner's mucosa. - Diffuse thick gastric folds were found in the gastric fundus and in the gastric body. - The exam of the stomach was otherwise normal. - There was no evidence of gastritis, varices, blood, bleeding source or ulcer. - The examined duodenum was normal. Impression: - Z-line irregular, 36 cm from the incisors. - Normal esophagus. - There was no evidence of esophageal varices, esophagitis or Turner's mucosa. - Thick gastric folds. - There was no evidence of gastritis, varices, blood, bleeding source or ulcer. - Normal examined duodenum. - No specimens collected. Recommendation: - I anticipate no further need for intervention. - Observe patient's clinical course. Procedure Code(s): - 39302, Esophagogastroduodenoscopy, flexible, transoral; diagnostic, including collection of specimen(s) by brushing or washing, when performed (separate procedure) Diagnosis Code(s): - R10.13, Epigastric pain - K22.89, Other specified disease of esophagus - K29.60, Other gastritis without bleeding CPT(R) - 2023 copyright [employer]. All Rights Reserved. The CPT codes, CCI edits and ICD codes generated are intended as suggestions and were generated based on input data. These codes are preliminary and upon bookkeeping manager review may be revised to meet current compliance and payer requirements. The provider is responsible for the final determination of appropriate codes, and modifiers. Ladarius Zuniga M.D. , This document has been electronically signed. Note Initiated:07/26/2024 Note Completed:07/26/2024 2:18 PM [id number]
--- NOTE | 2024-07-26 14:57 | Anesthesiology Progress Note ---
Date of Service July 26, 2024 Anesthesia Post Procedure Vital Signs Vital Signs: Temp Pulse Pulse Pulse Resp BP BP 07/26/24 14:41 74 16 112/70 07/26/24 14:26 80 16 07/26/24 14:11 81 14 121/73 07/26/24 13:36 36.4 C L 71 18 127/75 07/26/24 13:08 36.5 C 75 110/66 07/26/24 13:00 69 114/58 L 07/26/24 12:30 74 122/80 07/26/24 12:00 75 106/64 07/26/24 11:30 70 100/71 07/26/24 11:03 36.6 C 71 18 116/75 07/26/24 11:00 69 114/76 07/26/24 10:54 36.6 C 72 18 118/59 L 07/26/24 10:39 36.8 C 74 18 125/59 L 07/26/24 10:30 69 115/77 07/26/24 10:17 36.6 C 72 18 119/72 07/26/24 10:00 70 126/78 07/26/24 09:30 68 111/76 07/26/24 09:08 70 130/103 H 07/26/24 08:58 36.5 C 72 07/26/24 08:00 07/26/24 07:46 37.0 C 72 16 117/76 07/26/24 07:00 73 07/26/24 04:03 37 C 70 18 112/70 07/25/24 23:18 37 C 68 16 115/77 07/25/24 21:35 73 07/25/24 19:52 37.1 C 72 18 113/73 07/25/24 19:45 07/25/24 18:32 84 07/25/24 18:19 37.1 C 78 18 111/67 Pulse Ox O2 Del Method 07/26/24 14:41 99 Room Air 07/26/24 14:26 100 Room Air 07/26/24 14:11 100 Room Air 07/26/24 13:36 96 Room Air 07/26/24 13:08 07/26/24 13:00 07/26/24 12:30 07/26/24 12:00 07/26/24 11:30 07/26/24 11:03 94 11/18/24 11:00 07/26/24 10:54 94 07/26/24 10:39 94 07/26/24 10:30 07/26/24 10:17 94 07/26/24 10:00 07/26/24 09:30 07/26/24 09:08 07/26/24 08:58 07/26/24 08:00 Room Air 07/26/24 07:46 94 Room Air 07/26/24 07:00 07/26/24 04:03 94 Room Air 07/25/24 23:18 95 Room Air 07/25/24 21:35 07/25/24 19:52 93 Room Air 07/25/24 19:45 Room Air 07/25/24 18:32 07/25/24 18:19 100 Room Air Pain Intensity Abdomen: Pain Intensity: 12 Transfer of Care Handoff Completed per policy Notes Mental Status: alert / awake / arousable Patient Amnestic to Procedure: Yes Nausea / Vomiting: adequately controlled Pain: adequately controlled Airway Patency, RR, SpO2: stable & adequate BP & HR: stable & adequate Hydration State: stable & adequate Anesthetic Complications: no major complications apparent and Pt Satisfied with anesthetic care
[2024-07-26 18:14] LABS: Hematocrit (blood only) 31.4 % (37.0-47.0); Hemoglobin 9.9 g/dl (12.0-16.0)
[2024-07-26] MEDS: PANTOprazole 40 MG/10 ML SYR IV SCH (21:09)
[2024-07-27] MEDS: LIDOCAINE 2% 2 ML VIAL/AMP(20MG/ML) INFIL ONE (07:43)
[2024-07-27] MEDS: PROPOFOL IV EMULSION 10 MG/ML 20 ML VIAL IV ONE (07:43)
--- NOTE | 2024-07-27 08:38 | Nephrology Progress Note ---
Date of Service July 27, 2024 Assessment & Plan (1) ESRD (end stage renal disease) on dialysis: Plan: * No acute indication for HD today. Will plan for heparin free HD in am * Outpatient HD Rx: TTS @ [facility] Christel, 4 hours, 180 optiflux, 3K 2.5Ca Qb 450. EDW 108.kg * Renal diet. Calcium acetate can be held pending improvement in GI symptoms. * Continue cinacalcet (2) Vomiting: Plan: * Vomiting and diarrhea have resolved. Patient remains mildly nauseated * Patient has not yet been able to provide a stool sample for enteropathogenic PCR testing * 07/23/2024 gastroenterology recommendations reviewed today -probable viral gastroenteritis. Continue supportive care * 07/24/2024 mesenteric US - Apparent elevated peak systolic velocities within the superior mesenteric artery would correlate with stenosis of greater than 70%. This can be confirmed with CTA. 07/25/24 CTA revealed that aortic branch vessels are patent * 07/26/24 EGD was negative for active bleeding Admission and Anticipated Discharge Date Admission Date: July 24, 2024 Subjective Ms. Gallardo was evaluated in her hospital room this morning. She reports that her abdominal discomfort has improved but she does remain nauseated. Dysuria has resolved. Ms. Gallardo is frustrated that the EGD was unrevealing Review of Systems Constitutional: no fever Eyes: no problem reported Ear, Nose, Mouth, Throat: no problem reported Respiratory: no cough and no dyspnea Cardiovascular: no chest pain Gastrointestinal: no abdominal pain, no nausea, no vomiting and no diarrhea/loose stools Genitourinary: no dysuria Integumentary: no rash Neurologic: no problem reported Physical Exam Constitutional: not in distress Eyes: PERRL, conjunctivae normal, anicteric sclerae ENMT: external ear and nose normal, oropharynx normal Neck: trachea midline, no thyromegaly Respiratory: normal respiratory effort, lungs clear to auscultation Cardiovascular: RRR, no murmur, no edema Extremities: + AV fistula (+ bruit) Gastrointestinal (Abdomen): normal bowel sounds, soft, nontender, no hepatosplenomegaly Musculoskeletal: Extremities: no cyanosis and no clubbing Skin: no rashes, warm and dry Neurologic: awake; not confused Results & Data Vital Signs (Past 12 Hours) Vital Signs Temp Pulse Pulse Resp BP BP Pulse Ox 07/27/24 07:33 36.6 C 76 14 108/72 95 07/27/24 07:24 71 07/27/24 04:00 36.9 C 68 20 123/76 97 07/26/24 23:46 36.8 C 77 20 109/71 96 07/26/24 21:59 73 07/26/24 21:00 07/26/24 20:54 71 112/70 O2 Del Method 07/27/24 07:33 Room Air 07/27/24 07:24 07/27/24 04:00 Room Air 07/26/24 23:46 Room Air 07/26/24 21:59 07/26/24 21:00 Room Air 07/26/24 20:54 Laboratory Results Laboratory Results - last 24 hr 07/25/24 07/26/24 07/26/24 15:33 09:36 17:43 WBC 6.16 RBC 2.50 L Hgb 7.5 L 9.9 L Hct 24.0 L 31.4 L MCV 96.0 MCH 30.0 MCHC 31.3 L RDW Std Deviation 54.5 H RDW Coeff of Hosea 15.6 H Plt Count 213 MPV 9.9 Absolute Nucleated RBC 0.02 Nucleated RBC % (auto) 0.3 PT 11.0 INR 1.0 APTT 28 PTT Ratio 1.0 Sodium 133 L Potassium 4.2 Chloride 98 Carbon Dioxide 23 Anion Gap 12 H BUN 20 Creatinine 9.58 H* D Est Cr Clr Drug Dosing 9.1 eGFR 4.73 BUN/Creatinine Ratio 2.1 L Glucose 82 Calcium 8.5 L Phosphorus 3.7 Magnesium 1.7 Albumin 3.6 Blood Type O Positive Antibody Screen NEGATIVE Crossmatch See Detail Diagnostic Findings Laboratory Results - last 24 hr 07/25/24 07/26/24 07/26/24 15:33 09:36 17:43 WBC RBC Hgb 9.9 L Hct 31.4 L MCV MCH MCHC RDW Std Deviation RDW Coeff of Hosea Plt Count MPV PT 11.0 INR 1.0 APTT 28 PTT Ratio 1.0 Sodium Potassium Chloride Carbon Dioxide Anion Gap BUN Creatinine Est Cr Clr Drug Dosing eGFR BUN/Creatinine Ratio Glucose Calcium Blood Type O Positive Antibody Screen NEGATIVE Crossmatch See Detail 07/27/24 08:03 WBC 5.37 RBC 3.18 L Hgb 9.7 L Hct 30.7 L MCV 96.5 MCH 30.5 MCHC 31.6 L RDW Std Deviation 55.9 H RDW Coeff of Hosea 16.1 H Plt Count 227 MPV 9.8 PT INR APTT PTT Ratio Sodium 137 Potassium 4.0 Chloride 100 Carbon Dioxide 24 Anion Gap 13 H BUN 13 Creatinine 6.96 H* D Est Cr Clr Drug Dosing 12.6 eGFR 6.94 BUN/Creatinine Ratio 1.9 L Glucose 89 Calcium 8.9 Blood Type Antibody Screen Crossmatch PG Care Time/CCT Total # of Minutes Spent Total Time Spent with Patient: Total time spent is greater than 50% in coordination of care (as documented) at patient's floor/unit and/or counseling patient: Coding Level of Care Code 43991 SUB INP/OBS CARE 3/50MIN Diagnoses ESRD (end stage renal disease) on dialysis N18.6; Z99.2 Vomiting R11.2 Nausea presence: with nausea Vomiting type: unspecified (2) Vomiting Nausea presence: with nausea Vomiting type: unspecified Qualified Code(s): R11.2 - Nausea with vomiting, unspecified
[2024-07-27 08:57] LABS: Hematocrit (blood only) 30.7 % (37.0-47.0); Hemoglobin 9.7 g/dl (12.0-16.0); Mean Corpuscular Hemoglobin 30.5 pg (25.0-34.0); Mean Corpuscular Hgb Conc 31.6 g/dL (32.0-36.0); Mean Corpuscular Volume 96.5 fL (80.0-100.0); Mean Platelet Volume 9.8 fL (9.4-12.4); Platelet Count 227 K/uL (130-400); RDW Coefficient of Variation 16.1 % (11.5-14.5); RDW Standard Deviation 55.9 fL (36.4-46.3); Red Blood Count 3.18 M/uL (4.20-5.40); White Blood Count 5.37 K/ul (4.8-10.8)
[2024-07-27 09:52] LABS: BUN Creatinine Ratio 1.9 (10-20); Calcium 8.9 mg/dl (8.6-10.3); Creatinine Clr Calc Pharmacy 12.6 ml/min
[2024-07-27] MEDS: TRIAMCINOLONE ACET 0.1% OINT 15 GM TUBE TOP SCH (20:32)
--- NOTE | 2024-07-27 21:27 | Hospitalist Progress Note ---
Date of Service July 27, 2024 Assessment & Plan (1) GIB (gastrointestinal bleeding): Plan: 43yo female with history of ESRD on HD presenting with several days of nausea, vomiting, diarrhea, PO intolerance and lower abdominal pain. - CT A/P on admission without acute finding, but further review of her chart and prior imaging reveals previous upper abdominal discomfort > Extensive workup for gallbladder issue in past was negative - CTA noting concerns for mild active bleeding > Patient reports Aleve x 1 prior to admission, but does not typically take any NSAIDs since starting HD > EGDs in past, as well as recent pill endoscopy which noted "light spot" they were going to monitor; pill endoscopy report with recommendation to repeat EGD - S/p 1 unit PRBC with HD on 07/26 due to hgb of 7.5. Hgb augmented appropriately. Will continue to monitor - GI consulted > EGD performed and benign. Report noted NO evidence of gastritis, varices, blood, bleeding source or ulcer, esophagitis, or Barretts mucosa. No further recommendations. - No further chemoprophylaxis given concerns for GIB - Continue pantoprazole BID - Pain regimen adjusted given persistent epigastric pain > Increased to Dilaudid 1 mg Q3H PRN. Continue oxycodone 5 mg Q4H PRN (2) Superior mesenteric artery stenosis: Plan: Mesenteric US correlated with SMA stenosis of >70%. No mesenteric occlusion aminta ntified CTA abd/pel though without any mention of mesenteric artery stenosis - Cannot rule out this as the cause of epigastric pain, but patient denies clinical symptoms including early satiety or worsened pain after eating (3) Vitamin D deficiency: Plan: Vit D low at 14.8 - Suspect 2nd hyperparathyroidism from CKD as well w/ elevated ALP - PO replacement started/would continue at discharge - ALP decreased on repeat, monitor (4) Dialysis patient: Plan: ESRD on HD q T/R/S - Nephrology consulted and following - Continues home cinacalcet/phoslo (5) Hypertension: Plan: Elevated BP upon arrival - patient received IV Labetalol with improved blood pressure - Continue home regimen of amlodipine 5 mg QAM and Labetalol 800 mg TID Hyperlipidemia-Continue Atorvastatin (6) Iron deficiency: Plan: Checked due to acute on chronic anemia w/ CKD - Iron/trans % sat and ferritin LOW - Venofer IV started/continued - Monitor CBC, PRBC as needed w/ HD Plan Adjusted pain regimen Advanced to clear liquid diet VTE PPX: SCDs CODE STATUS: Full code Admission and Anticipated Discharge Date Admission Date: July 24, 2024 Supervising Physician Co-Signing Physician Notes PA Supervision Note: I did not personally see or examine the patient today, but I verified all paul points of RENNY Boateng's assessment and plan with the following exceptions/additions: None Subjective Patient seen and evaluated at bedside. She reports continued abdominal pain, which she describes as a constant dull ache with intermittent sharp/stabbing pain. She reports that the pain medication is not currently well-controlling her pain. Discussed increasing her pain medication. She reports intermittent nausea, but notes this is mild and resolves with Zofran. We discussed advancing to a clear liquid diet. No additional complaints or concerns at this time. Physical Exam Physical Exam: General: No acute distress, nondiaphoretic, well-developed, well-nourished. Cardiac: Regular rate and rhythm without murmurs gallops or rubs. LILIANA fistula +bruit. Pulm: Mild expiratory wheeze, but otherwise clear to auscultation bilaterally. No respiratory distress. 96% on room air. Abdominal: Soft, nondistended. Tender to palpation of epigastric region. Bowel sounds present. Voluntary guarding. No rebound tenderness. Neuro: A&O x3. No focal neurological deficits. Results & Data Results & Data Vital Signs (Past 12 Hours) Vital Signs Temp Pulse Pulse Resp BP Pulse Ox O2 Del Method 07/27/24 19:32 97.9 F 72 18 99/54 L 96 Room Air 07/27/24 15:51 97.9 F 73 18 114/70 95 Room Air 07/27/24 14:29 74 07/27/24 12:37 97.7 F 71 18 117/73 93 Room Air 07/27/24 10:42 97.9 F 80 16 97/60 L 95 Room Air 07/27/24 10:30 Room Air Laboratory Results Reviewed CBC Reviewed BMP PG Care Time/CCT Total # of Minutes Spent Total Time Spent with Patient: Total time spent is greater than 50% in coordination of care (as documented) at patient's floor/unit and/or counseling patient: Coding Level of Care Code 58476 SUB INP/OBS CARE 2/35MIN Diagnoses GIB (gastrointestinal bleeding) K92.2 Superior mesenteric artery stenosis K55.1 Vitamin D deficiency E55.9 Dialysis patient Z99.2 Hypertension I10 Hypertension type: unspecified Iron deficiency E61.1 (5) Hypertension Hypertension type: unspecified Qualified Code(s): I10 - Essential (primary) hypertension
[2024-07-27] MEDS: oxyCODONE HCL IR 5 MG TAB (IMMEDIATE RELEASE) PO PRN (21:35)
[2024-07-28 06:59] LABS: Hematocrit (blood only) 29.9 % (37.0-47.0); Hemoglobin 9.2 g/dl (12.0-16.0); Mean Corpuscular Hgb Conc 30.8 g/dL (32.0-36.0); Mean Corpuscular Volume 97.4 fL (80.0-100.0); Mean Platelet Volume 9.3 fL (9.4-12.4); Platelet Count 208 K/uL (130-400); RDW Coefficient of Variation 16.2 % (11.5-14.5); RDW Standard Deviation 56.7 fL (36.4-46.3); Red Blood Count 3.07 M/uL (4.20-5.40); White Blood Count 5.18 K/ul (4.8-10.8)
[2024-07-28 07:19] LABS: BUN Creatinine Ratio 2.3 (10-20); Calcium 8.2 mg/dl (8.6-10.3); Creatinine Clr Calc Pharmacy 9.4 ml/min; Potassium 4.1 mmol/L (3.5-5.1)
--- NOTE | 2024-07-28 08:40 | Nephrology Progress Note ---
Date of Service July 28, 2024 Assessment & Plan (1) ESRD (end stage renal disease) on dialysis: Plan: * Heparin free HD today. Orders have been placed in EMR and HD RN notified * Outpatient HD Rx: TTS @ [facility] Christel, 4 hours, 180 optiflux, 3K 2.5Ca Qb 450. EDW 108.kg * Renal diet. Calcium acetate can be held pending improvement in GI symptoms. * Continue cinacalcet (2) Vomiting: Plan: * Vomiting and diarrhea have resolved. Patient remains mildly nauseated * Patient has not yet been able to provide a stool sample for enteropathogenic PCR testing * 07/23/2024 gastroenterology recommendations reviewed today -probable viral gastroenteritis. Continue supportive care * 07/24/2024 mesenteric US - Apparent elevated peak systolic velocities within the superior mesenteric artery would correlate with stenosis of greater than 70%. This can be confirmed with CTA. 07/25/24 CTA revealed that aortic branch vessels are patent * 07/26/24 EGD was negative for active bleeding (3) Anemia: Plan: * Epogen 75720 units IV provided with HD 07/24/2024 * Hemoglobin is again trending downward * 07/25/24 Iron saturation 12%, ferritin 38.7 * Day #4 of 6 IV Venofer * Hgb 9.7-->9.2 this am * 07/26/24 EGD was negative for active bleeding * Recent pill cam by [facility] did reveal a polyp in the 1st portion of the duodenum. Will await further recommendations from GI Admission and Anticipated Discharge Date Admission Date: July 24, 2024 Subjective Ms. Gallardo was evaluated in her hospital room this morning. She reports that her abdominal discomfort has improved but she does remain nauseated. Dysuria has resolved. Ms. Gallardo is frustrated that the EGD was unrevealing Review of Systems Constitutional: no fever Eyes: no problem reported Ear, Nose, Mouth, Throat: no problem reported Respiratory: no cough and no dyspnea Cardiovascular: no chest pain Gastrointestinal: no abdominal pain, no nausea, no vomiting and no diarrhea/loose stools Genitourinary: no dysuria Integumentary: no rash Neurologic: no problem reported Physical Exam Constitutional: not in distress Eyes: PERRL, conjunctivae normal, anicteric sclerae ENMT: external ear and nose normal, oropharynx normal Neck: trachea midline, no thyromegaly Respiratory: normal respiratory effort, lungs clear to auscultation Cardiovascular: RRR, no murmur, no edema Extremities: + AV fistula (+ bruit) Gastrointestinal (Abdomen): normal bowel sounds, soft, nontender, no hepatosplenomegaly Musculoskeletal: Extremities: no cyanosis and no clubbing Skin: no rashes, warm and dry Neurologic: awake; not confused Results & Data Vital Signs (Past 12 Hours) Vital Signs Temp Pulse Pulse Resp BP Pulse Ox O2 Del Method 07/28/24 07:40 Room Air 07/28/24 07:21 69 07/28/24 02:45 36.5 C 73 18 124/76 100 Room Air 07/27/24 23:06 Room Air 07/27/24 22:59 36.7 C 72 18 99/61 L 97 Room Air 07/27/24 21:40 67 Laboratory Results Laboratory Results - last 24 hr 07/27/24 07/28/24 08:03 06:37 WBC 5.37 5.18 RBC 3.18 L 3.07 L Hgb 9.7 L 9.2 L Hct 30.7 L 29.9 L MCV 96.5 97.4 MCH 30.5 30.0 MCHC 31.6 L 30.8 L RDW Std Deviation 55.9 H 56.7 H RDW Coeff of Hosea 16.1 H 16.2 H Plt Count 227 208 MPV 9.8 9.3 L Sodium 137 138 Potassium 4.0 4.1 Chloride 100 101 Carbon Dioxide 24 26 Anion Gap 13 H 11 BUN 13 22 Creatinine 6.96 H* D 9.50 H* D Est Cr Clr Drug Dosing 12.6 9.4 eGFR 6.94 4.78 BUN/Creatinine Ratio 1.9 L 2.3 L Glucose 89 82 Calcium 8.9 8.2 L PG Care Time/CCT Total # of Minutes Spent Total Time Spent with Patient: Total time spent is greater than 50% in coordination of care (as documented) at patient's floor/unit and/or counseling patient: Coding Level of Care Code 13084 SUB INP/OBS CARE 3/50MIN Diagnoses ESRD (end stage renal disease) on dialysis N18.6; Z99.2 Vomiting R11.2 Nausea presence: with nausea Vomiting type: unspecified Anemia D64.9 (2) Vomiting Nausea presence: with nausea Vomiting type: unspecified Qualified Code(s): R11.2 - Nausea with vomiting, unspecified
[2024-07-28] MEDS: EPOETIN ALFA 20,000 UNITS/ML VIAL IV ONE (11:36)
[2024-07-28] MEDS: HYDROmorphone INJ 0.5 MG/0.5 ML SYR IV PRN (11:46)
--- NOTE | 2024-07-28 16:06 | Hospitalist Progress Note ---
Date of Service July 28, 2024 Assessment & Plan (1) GIB (gastrointestinal bleeding): Plan: 43yo female with history of ESRD on HD presenting with several days of nausea, vomiting, diarrhea, PO intolerance and lower abdominal pain. - CT A/P on admission without acute finding, but further review of her chart and prior imaging reveals previous upper abdominal discomfort > Extensive workup for gallbladder issue in past was negative > EGDs in past, as well as recent pill endoscopy which noted "light spot" they were going to monitor - Mesenteric US suggestive of high-grade SMA stenosis -- discussed findings with radiologist who feels findings on US were artifactual - CTA noting concerns for mild active bleeding. Only mild stenosis of SMA > Patient reports Aleve x 1 prior to admission, but does not typically take any NSAIDs since starting HD - S/p 1 unit PRBC with HD on 07/26 due to hgb of 7.5. Hgb augmented appropriately; remains stable but is downtrending. Will continue to monitor - GI consulted > EGD performed and benign. Report noted NO evidence of gastritis, varices, blood, bleeding source or ulcer, esophagitis, or Barretts mucosa > GI to see patient again 07/29 for further recommendations given persistent abdominal pain without clear etiology - Continue pantoprazole BID - Pain regimen adjusted given persistent epigastric pain -- Continue Dilaudid 1 mg Q3H PRN, oxycodone 5 mg Q4H PRN (2) Superior mesenteric artery stenosis: Plan: Mesenteric US correlated with SMA stenosis of >70%. No mesenteric occlusion identified - CTA abd/pel though without any mention of mesenteric artery stenosis > Discussed discrepancy between US and CTA results with radiologist who believes findings on US were artifactual and only mild SMA stenosis - Cannot rule out this as the cause of epigastric pain, but patient denies clinical symptoms including early satiety or worsened pain after eating (3) Vitamin D deficiency: Plan: Vit D low at 14.8 - Suspect 2nd hyperparathyroidism from CKD as well w/ elevated ALP - PO replacement started/would continue at discharge - ALP decreased on repeat (4) Dialysis patient: Plan: ESRD on HD q T/R/S - Nephrology consulted and following - Continues home cinacalcet/phoslo (5) Hypertension: Plan: Elevated BP upon arrival - patient received IV Labetalol with improved blood pressure - Continue home regimen of amlodipine 5 mg QAM and Labetalol 800 mg TID Hyperlipidemia - Continue Atorvastatin (6) Iron deficiency: Plan: Checked due to acute on chronic anemia w/ CKD - Iron/trans % sat and ferritin LOW - Venofer IV started/continued - Monitor CBC, PRBC as needed w/ HD Plan Discussed case with radiology and GI VTE PPX: SCDs CODE STATUS: Full code Admission and Anticipated Discharge Date Admission Date: July 24, 2024 Supervising Physician Co-Signing Physician Notes PA Supervision Note: I did not personally see or examine the patient today, but I verified all paul points of RENNY Boateng's assessment and plan with the following exceptions/additions: None Subjective Patient seen and evaluated during dialysis treatment. She reports that her severe abdominal pain continues, but the increase dose of Dilaudid does help control her pain better than before. She denies any nausea at this time. We discussed possibly seeing vascular surgery outpatient given high-grade SMA stenosis noted on mesenteric US. She reports that she would want to follow with a local vascular surgeon as she does not drive. We also discussed optimizing her pain regimen with oral agents over the next couple days. No additional complaints or concerns at this time. Physical Exam Physical Exam: General: No acute distress, nondiaphoretic, well-developed, well-nourished. Cardiac: Regular rate and rhythm without murmurs gallops or rubs. LILIANA fistula +bruit. Pulm: Clear to auscultation bilaterally without wheezes, rales or rhonchi. No respiratory distress. 97% on room air. Abdominal: Soft, nondistended. Tender to palpation of epigastric region. Bowel sounds present. Voluntary guarding. No rebound tenderness. Neuro: A&O x3. No focal neurological deficits. Results & Data Results & Data Vital Signs (Past 12 Hours) Vital Signs Temp Pulse Pulse Resp BP BP BP 07/28/24 15:50 99.3 F 80 16 94/66 L 07/28/24 13:30 65 110/56 L 07/28/24 13:20 98.2 F 69 114/64 07/28/24 13:00 70 107/77 07/28/24 12:30 69 94/60 L 07/28/24 12:00 66 129/74 07/28/24 11:30 64 130/80 07/28/24 11:00 64 107/72 07/28/24 10:30 61 119/69 07/28/24 10:00 64 92/71 L 07/28/24 09:45 60 102/68 07/28/24 09:27 98.6 F 79 07/28/24 07:40 07/28/24 07:21 69 Pulse Ox O2 Del Method 07/28/24 15:50 97 Room Air 07/28/24 13:30 07/28/24 13:20 07/28/24 13:00 07/28/24 12:30 07/28/24 12:00 07/28/24 11:30 07/28/24 11:00 07/28/24 10:30 07/28/24 10:00 07/28/24 09:45 07/28/24 09:27 07/28/24 07:40 Room Air 07/28/24 07:21 Laboratory Results Reviewed CBC Reviewed BMP Diagnostic Findings Discussed CTA and mesenteric US findings with radiologist PG Care Time/CCT Total # of Minutes Spent Total Time Spent with Patient: Total time spent is greater than 50% in coordination of care (as documented) at patient's floor/unit and/or counseling patient: Coding Level of Care Code 96497 SUB INP/OBS CARE 3/50MIN Diagnoses GIB (gastrointestinal bleeding) K92.2 Superior mesenteric artery stenosis K55.1 Vitamin D deficiency E55.9 Dialysis patient Z99.2 Hypertension I10 Hypertension type: unspecified Iron deficiency E61.1 (5) Hypertension Hypertension type: unspecified Qualified Code(s): I10 - Essential (primary) hypertension
[2024-07-29 06:23] LABS: BUN Creatinine Ratio 1.8 (10-20); Calcium 8.3 mg/dl (8.6-10.3); Creatinine Clr Calc Pharmacy 12.2 ml/min; Potassium 4.1 mmol/L (3.5-5.1)
[2024-07-29 06:29] LABS: Hematocrit (blood only) 29.8 % (37.0-47.0); Hemoglobin 9.3 g/dl (12.0-16.0); Mean Corpuscular Hemoglobin 30.5 pg (25.0-34.0); Mean Corpuscular Hgb Conc 31.2 g/dL (32.0-36.0); Mean Corpuscular Volume 97.7 fL (80.0-100.0); Mean Platelet Volume 9.5 fL (9.4-12.4); Platelet Count 195 K/uL (130-400); RDW Coefficient of Variation 16.4 % (11.5-14.5); RDW Standard Deviation 57.9 fL (36.4-46.3); Red Blood Count 3.05 M/uL (4.20-5.40)
--- NOTE | 2024-07-29 08:30 | Nephrology Progress Note ---
Date of Service July 29, 2024 Assessment & Plan (1) ESRD (end stage renal disease) on dialysis: Plan: * No acute indication for HD today * If discharge is planned, please have patient resume outpatient HD on Friday * Outpatient HD Rx: TTS @ [facility] [place] Christ[facility], 4 hours, 180 optiflux, 3K 2.5Ca Qb 450. EDW 108.kg * Renal diet. Calcium acetate can be held pending improvement in GI symptoms. * Continue cinacalcet (2) Vomiting: Plan: * Vomiting and diarrhea have resolved. Patient remains mildly nauseated * Patient has not yet been able to provide a stool sample for enteropathogenic PCR testing * 07/23/2024 gastroenterology recommendations reviewed today - patient admitted w/ viral gastroenteritis. Current abdominal discomfort is likely function (IBS symptoms). Advised tapering off narcotics * 07/24/2024 mesenteric US - Apparent elevated peak systolic velocities within the superior mesenteric artery would correlate with stenosis of greater than 70%. This can be confirmed with CTA. 07/25/24 CTA revealed that aortic branch vessels are patent * 07/26/24 EGD was negative for active bleeding (3) Anemia: Plan: * Epogen 70448 units IV provided with HD 07/24/2024 * Hemoglobin is again trending downward * 07/25/24 Iron saturation 12%, ferritin 38.7 * Day #5 of 6 IV Venofer * Hgb 9.3 this am * 07/26/24 EGD was negative for active bleeding * Recent pill cam by [facility] did reveal a polyp in the 1st portion of the duodenum. GI reports a total of 3 EGDs, a small bowel enteroscopy, & a colonoscopy over the past 1 year that were negative for GIB source Admission and Anticipated Discharge Date Admission Date: July 24, 2024 Subjective Ms. Gallardo was evaluated in her hospital room this morning. She c/o ongoing abdominal discomfort but has been able to tolerate her diet and denies N/V, diarrhea. Dialysis was completed yesterday for 2.5L UF. Review of Systems Constitutional: no fever Eyes: no problem reported Ear, Nose, Mouth, Throat: no problem reported Respiratory: no cough and no dyspnea Cardiovascular: no chest pain Gastrointestinal: no abdominal pain, no nausea, no vomiting and no diarrhea/loose stools Genitourinary: no dysuria Integumentary: no rash Neurologic: no problem reported Physical Exam Constitutional: not in distress Eyes: PERRL, conjunctivae normal, anicteric sclerae ENMT: external ear and nose normal, oropharynx normal Neck: trachea midline, no thyromegaly Respiratory: normal respiratory effort, lungs clear to auscultation Cardiovascular: RRR, no murmur, no edema Extremities: + AV fistula (+ bruit) Gastrointestinal (Abdomen): normal bowel sounds, soft, nontender, no hepatosplenomegaly Musculoskeletal: Extremities: no cyanosis and no clubbing Skin: no rashes, warm and dry Neurologic: awake; not confused Results & Data Vital Signs (Past 12 Hours) Vital Signs Temp Pulse Pulse Pulse Resp BP BP 07/29/24 08:01 36.8 C 73 18 95/62 L 07/29/24 07:47 07/29/24 07:34 71 07/29/24 03:42 36.9 C 69 16 117/70 07/28/24 23:11 36.6 C 70 18 117/70 07/28/24 22:38 70 07/28/24 21:31 Pulse Ox O2 Del Method 07/29/24 08:01 98 Room Air 07/29/24 07:47 Room Air 07/29/24 07:34 07/29/24 03:42 96 Room Air 07/28/24 23:11 95 Room Air 07/28/24 22:38 07/28/24 21:31 Room Air Laboratory Results Laboratory Results - last 24 hr 07/25/24 07/29/24 15:33 05:39 WBC 6.80 RBC 3.05 L Hgb 9.3 L Hct 29.8 L MCV 97.7 MCH 30.5 MCHC 31.2 L RDW Std Deviation 57.9 H RDW Coeff of Hosea 16.4 H Plt Count 195 MPV 9.5 Sodium 135 L Potassium 4.1 Chloride 99 Carbon Dioxide 27 Anion Gap 9 BUN 13 Creatinine 7.29 H* D Est Cr Clr Drug Dosing 12.2 eGFR 6.57 BUN/Creatinine Ratio 1.8 L Glucose 82 Calcium 8.3 L Crossmatch See Detail PG Care Time/CCT Total # of Minutes Spent Total Time Spent with Patient: Total time spent is greater than 50% in coordination of care (as documented) at patient's floor/unit and/or counseling patient: Coding Level of Care Code 03013 SUB INP/OBS CARE MIN Diagnoses ESRD (end stage renal disease) on dialysis N18.6; Z99.2 Vomiting R11.2 Nausea presence: with nausea Vomiting type: unspecified Anemia D64.9 (2) Vomiting Nausea presence: with nausea Vomiting type: unspecified Qualified Code(s): R11.2 - Nausea with vomiting, unspecified
--- NOTE | 2024-07-29 09:09 | Communication Note ---
Date of Service: July 29, 2024 Dr. Zuniga & I have been asked to again weigh in on Astrid Gallardo due to ongoing pain. This admission, patient has had a CT abdomen/pelvis, CTA, Mesenteric US, & EGD. CTA had questioned SMA syndrome, but mesenteric US was negative for this. She has had a total of 3 EGDs, a small bowel enteroscopy, & a colonoscopy over the past 1 year. She has been chronically managed by our GI practice for IBS with constipation and has required prescription medication for constipation. She continues with pain and primary team has been managing with narcotics. If pain has acutely worsened, consider repeat imaging. If no findings, would ensure that she is moving her bowels with her home regimen. Could offer prn Miralax and Senna as well. Dicyclomine for symptom improvement. Could consider Xifaxan TID x 14 days as an outpatient. From a GI perspective, pain seems functional, patient is in no acute distress. There is not else much to offer this patient at the present time. Further consideration could be given to vascular evaluation due to previous concerns on CTA vs pain management. Would wean her off narcotics as there is no role for narcotics in non surgical abdominal pain and this will likely worsen her constipation.
--- NOTE | 2024-07-29 09:14 | Gastroenterology Progress Note ---
Date of Service July 29, 2024 Assessment & Plan (1) Chronic abdominal pain: Plan: Chronic irritable bowel syndrome now with worsening of symptoms. I believe the pain is functional, no evidence of significant mesenteric stenosis as per CTA. Increase dicyclomine to 20 mg every 6 hours. Start weaning of opioids. Consider rifaximin 550 mg 3 times a day for 2 weeks. For completeness consultation with vascular surgery. Admission and Anticipated Discharge Date Admission Date: July 24, 2024 Subjective Asked to see for ongoing abdominal pain. She has had long history of irritable bowel syndrome and she has been followed in our GI office for several years. Over the last several months her symptoms have worsened. Lost about 60 pounds over the last year. Describes pain as aching and pressure. Intensity of pain 910/10 on pain scale. Pain is located in mid abdomen. No obvious precipitating factors, sometimes pain is precipitated by meals. Previously was complaining of constipation and diarrhea. Previously the patient was treated with dicyclomine, Linzess. The patient also indicated that she was treated with Viberzi however I cannot find it in her records. Denies vomiting. Multiple endoscopic procedures, the most recent colonoscopy was in December 2023 and showed hemorrhoids and diverticula. The most recent EGD was done during this admission on 07/26/2024 and showed slightly thickened gastric folds. Abdominal ultrasound with visceral duplex showed questionable increased velocities in the SMA however recent CTA which I reviewed showed normal flow through the superior mesenteric artery. Multiple prior abdominal imaging were unremarkable. Currently the patient is on Dilaudid 1 mg every 3 hours and on oxycodone 5 mg p.o. every 4 hours. The patient reports minimal relief of pain with opioids. In addition she is on dicyclomine 10 mg as needed, amitriptyline 50 mg and gabapentin. Review of Systems Review of Systems: Constitutional: 60 pound weight loss over the last year. Denies chills, fever, fatigue. Respiratory: Denies cough, denies shortness of breath. Cardiovascular: Denies chest pain and palpitations. Gastrointestinal: As per history of present illness. Physical Exam Physical Exam: Constitutional: WD/WN, vitals as above Respiratory: normal respiratory effort, lungs clear to auscultation Cardiovascular: RRR, no murmur, no edema Gastrointestinal (Abdomen): normal bowel sounds, soft, mild diffuse tenderness on deep palpation without guarding and without rebound. No hepatosplenomegaly. Neurological: Oriented x 3, grossly no focal abnormalities, speech is intact. Results & Data Results & Data Vital Signs (Past 12 Hours) Vital Signs Temp Pulse Pulse Pulse Resp BP BP 07/29/24 08:01 36.8 C 73 18 95/62 L 07/29/24 07:47 07/29/24 07:34 71 07/29/24 03:42 36.9 C 69 16 117/70 07/28/24 23:11 36.6 C 70 18 117/70 07/28/24 22:38 70 07/28/24 21:31 Pulse Ox O2 Del Method 07/29/24 08:01 98 Room Air 07/29/24 07:47 Room Air 07/29/24 07:34 07/29/24 03:42 96 Room Air 07/28/24 23:11 95 Room Air 07/28/24 22:38 07/28/24 21:31 Room Air PG Care Time/CCT Total # of Minutes Spent Total Time Spent with Patient: Total time spent is greater than 50% in coordination of care (as documented) at patient's floor/unit and/or counseling patient: Coding Level of Care Code 72009 SUB INP/OBS CARE 2/35MIN Diagnoses Chronic abdominal pain R10.9; G89.29
[2024-07-29] MEDS ORDERED: oxyCODONE HCL IR 5 MG TAB (IMMEDIATE RELEASE) PO PRN (10:20)
--- NOTE | 2024-07-29 11:15 | Communication Note ---
Date of Service: July 29, 2024 Reviewed her CTA. No evidence of SMA stenosis or celiac artery stenosis. Her abdominal pain is not related for mesenteric vascular insufficiency. No indications for a vascular consult at this time. Please call if you have any questions or concerns. thank you
[2024-07-29] MEDS: oxyCODONE HCL IR 5 MG TAB (IMMEDIATE RELEASE) PO PRN (12:03)
[2024-07-29] MEDS: DICYCLOMINE HCL 10 MG CAP PO PRN (14:39)
[2024-07-29] MEDS: rifAXIMin 550 MG TABLET PO SCH (14:39)
[2024-07-29] MEDS: HYDROmorphone INJ 0.5 MG/0.5 ML SYR IV PRN (14:40)
--- NOTE | 2024-07-29 19:05 | Communication Note ---
Date of Service: July 29, 2024 asked to see along carlos LOERA due to thoughts that her abdominal pain/nausea may be trigger point related hx abdominal pain/cramping, nausea, relative paucity of vomiting (~1x/wk) metallic taste in mouth. extensive w/u negative, GI suspecting function dx PE - 4 very discrete very tender abdominal wall trigger points identified in L upper abdomen/just L of center epigastrum abdominal wall trigger point injection procedure note informed consent, risk/benefits discussed area cleaned with betadine then EtOH 4 discrete trigger points injected with ~6cc 2% lidocaine without epi (~1.5cc per point) - 2 more medial points done by myself personally, 2 more lateral points done by Braden LOERA under my supervision and with pt's permission pt tolerated well post procedure expectations/possible clinical courses discussed start voltaren gel as well
--- NOTE | 2024-07-29 19:17 | Hospitalist Progress Note ---
Date of Service July 29, 2024 Assessment & Plan (1) Trigger point of abdomen: Plan: 43yo female with history of ESRD on HD presenting with several weeks of nausea, vomiting, diarrhea, PO intolerance and lower abdominal pain. - History significant for extensive GI workup in past with multiple EGDs, small bowel enteroscopy, and colonoscopy within past 1 year - Does follow with GI outpatient for IBS constipation - CT A/P on admission without acute finding - Mesenteric US suggestive of high-grade SMA stenosis -- discussed findings with radiologist who feels findings on US were artifactual - CTA noting concerns for mild active bleeding. Only mild stenosis of SMA > Patient reports Aleve x 1 prior to admission, but does not typically take any NSAIDs since starting HD - GI consulted > EGD performed and benign. Report noted NO evidence of gastritis, varices, blood, bleeding source or ulcer, esophagitis, or Barretts mucosa > Feels abdominal pain is functional -- increased dicyclomine for symptom improvement, Xifaxan TID x 14 days, wean off narcotics - Abdominal wall trigger points identified and injected at bedside with Dr. Morrow (4 trigger points total in epigastrium and left lateral epigastric region). Refer to communication note from Dr. Morrow on 07/29 for details > If improvement in symptoms, make referral to pain management clinic on discharge for future trigger point injections - Started Voltaren gel to abdomen - Continue pantoprazole BID - Pain regimen decreased, continue to wean off narcotics (2) GIB (gastrointestinal bleeding): Plan: S/p 1 unit PRBC with HD on 07/26 due to hgb of 7.5. Hgb augmented appropriately; remains stable but is downtrending. Will continue to monitor No melena or maroon or red stools noted (3) Superior mesenteric artery stenosis: Plan: Mesenteric US correlated with SMA stenosis of >70%. No mesenteric occlusion identified - CTA abd/pel though without any mention of mesenteric artery stenosis > Discussed discrepancy between US and CTA results with radiologist who believes findings on US were artifactual and only mild SMA stenosis - Cannot rule out this as the cause of epigastric pain, but lower suspicion (4) Vitamin D deficiency: Plan: Vit D low at 14.8 - Suspect 2nd hyperparathyroidism from CKD as well w/ elevated ALP - PO replacement started/would continue at discharge - ALP decreased on repeat (5) Dialysis patient: Plan: ESRD on HD q T/R/S - Nephrology consulted and following - Continues home cinacalcet/phoslo (6) Hypertension: Plan: Elevated BP upon arrival - patient received IV Labetalol with improved blood pressure - Continue home regimen of amlodipine 5 mg QAM and Labetalol 800 mg TID Hyperlipidemia - Continue Atorvastatin (7) Iron deficiency: Plan: Checked due to acute on chronic anemia w/ CKD - Iron/trans % sat and ferritin LOW - Venofer IV started/continued - Monitor CBC, PRBC as needed w/ HD Plan Adjusted pain regimen and dicyclomine Started Xifaxan Performed abdominal wall trigger point injections Started Voltaren gel VTE PPX: SCDs CODE STATUS: Full code Admission and Anticipated Discharge Date Admission Date: July 24, 2024 Supervising Physician Co-Signing Physician Notes PA Supervision Note: I did not personally see or examine the patient today, but I verified all paul points of RENNY Boateng's assessment and plan with the following excep tions/additions: None Subjective Patient seen and evaluated at bedside. She reports disappointment in persistent severe abdominal pain without answers as to why or improvement in her pain. Emotional support provided. Asked patient if I could share her case with colleague physician for further recommendations, she agreed. Returned to bedside with Dr. Morrow. Patient expressed her abdominal pain has been acutely worsened since June of this year, no precipitating events. Described "knotting" abdominal pain sensation with mild persistent nausea, vomiting episode ~1x/week, and random metallic taste in mouth. We discussed that we have a high suspicion that her abdominal pain and nausea is trigger point related. Discussed risks/benefits of trigger point injections, obtained consent, discussed expectations for after procedure. Patient denied any further complaints or concerns. Physical Exam Physical Exam: General: No acute distress, nondiaphoretic, well-developed, well-nourished. Cardiac: Regular rate and rhythm without murmurs gallops or rubs. LILIANA fistula +bruit. Pulm: Clear to auscultation bilaterally without wheezes, rales or rhonchi. No respiratory distress. 97% on room air. Abdominal: Soft, nondistended. Tender to palpation of epigastric region. Four abdominal point trigger points in epigastrium and laterally to left of epigastrium exquisitely tender. Bowel sounds present. No guarding or rebound tenderness. Neuro: A&O x3. No focal neurological deficits. Results & Data Results & Data Vital Signs (Past 12 Hours) Vital Signs Temp Pulse Pulse Resp BP BP Pulse Ox 07/29/24 18:09 07/29/24 14:59 74 114/70 07/29/24 14:17 75 07/29/24 11:13 98.1 F 83 18 111/69 92 07/29/24 08:01 98.2 F 73 18 95/62 L 98 07/29/24 07:47 07/29/24 07:34 71 O2 Del Method 07/29/24 18:09 Room Air 07/29/24 14:59 07/29/24 14:17 07/29/24 11:13 Room Air 07/29/24 08:01 Room Air 07/29/24 07:47 Room Air 07/29/24 07:34 Laboratory Results Reviewed CBC Reviewed BMP PG Care Time/CCT Total # of Minutes Spent Total Time Spent with Patient: Total time spent is greater than 50% in coordination of care (as documented) at patient's floor/unit and/or counseling patient: Coding Level of Care Code 43388 SUB INP/OBS CARE 3/50MIN Diagnoses Trigger point of abdomen R10.9 GIB (gastrointestinal bleeding) K92.2 Superior mesenteric artery stenosis K55.1 Vitamin D deficiency E55.9 Dialysis patient Z99.2 Hypertension I10 Hypertension type: unspecified Iron deficiency E61.1 (6) Hypertension Hypertension type: unspecified Qualified Code(s): I10 - Essential (primary) hypertension
[2024-07-29] MEDS: DICLOFENAC SOD 1% GEL 100 GM TUBE EXT SCH (21:26)
[2024-07-30 06:45] LABS: Hematocrit (blood only) 29.3 % (37.0-47.0); Hemoglobin 9.1 g/dl (12.0-16.0); Mean Corpuscular Hemoglobin 30.4 pg (25.0-34.0); Mean Corpuscular Hgb Conc 31.1 g/dL (32.0-36.0); Mean Platelet Volume 9.5 fL (9.4-12.4); Platelet Count 200 K/uL (130-400); RDW Coefficient of Variation 16.3 % (11.5-14.5); RDW Standard Deviation 58.6 fL (36.4-46.3); Red Blood Count 2.99 M/uL (4.20-5.40); White Blood Count 5.75 K/ul (4.8-10.8)
[2024-07-30 07:20] LABS: BUN Creatinine Ratio 1.9 (10-20); Calcium 7.8 mg/dl (8.6-10.3); Creatinine Clr Calc Pharmacy 9.5 ml/min; Potassium 3.9 mmol/L (3.5-5.1)
--- NOTE | 2024-07-30 08:30 | Nephrology Progress Note ---
Date of Service July 30, 2024 Assessment & Plan (1) ESRD (end stage renal disease) on dialysis: Plan: * Will provide HD today. Orders have been placed in EMR and HD RN notified * Outpatient HD Rx: TTS @ [facility] Christ[place], 4 hours, 180 optiflux, 3K 2.5Ca Qb 450. EDW 108.kg * Renal diet. Calcium acetate can be held pending improvement in GI symptoms. * Continue cinacalcet * If discharge is planned, please have patient resume outpatient HD on Friday (2) Vomiting: Plan: * Vomiting and diarrhea have resolved. Patient remains mildly nauseated * Patient was not able to provide a stool sample for enteropathogenic PCR testing * 07/23/2024 gastroenterology recommendations reviewed - patient admitted w/ viral gastroenteritis. Current abdominal discomfort is likely function (IBS symptoms). Advised tapering off narcotics * 07/24/2024 mesenteric US - Apparent elevated peak systolic velocities within the superior mesenteric artery would correlate with stenosis of greater than 70%. This can be confirmed with CTA. 07/25/24 CTA revealed that aortic branch vessels are patent * 07/26/24 EGD was negative for active bleeding (3) Anemia: Plan: * 07/25/24 Iron saturation 12%, ferritin 38.7 * Day #6 of 6 IV Venofer * Hgb 9.1 this am * 07/26/24 EGD was negative for active bleeding * Recent pill cam by [facility] did reveal a polyp in the 1st portion of the duodenum. GI reports a total of 3 EGDs, a small bowel enteroscopy, and a colonoscopy over the past 1 year that were negative for GIB source Admission and Anticipated Discharge Date Admission Date: July 24, 2024 Subjective Ms. Gallardo was evaluated in her hospital room this morning. N/V and diarrhea have resolved. Dr. Crawford provided abdominal trigger point injections yesterday. She is subjectively improved this am. Review of Systems Constitutional: no fever Eyes: no problem reported Ear, Nose, Mouth, Throat: no problem reported Respiratory: no cough and no dyspnea Cardiovascular: no chest pain Gastrointestinal: no abdominal pain, no nausea, no vomiting and no diarrhea/loose stools Genitourinary: no dysuria Integumentary: no rash Neurologic: no problem reported Physical Exam Constitutional: not in distress Eyes: PERRL, conjunctivae normal, anicteric sclerae ENMT: external ear and nose normal, oropharynx normal Neck: trachea midline, no thyromegaly Respiratory: normal respiratory effort, lungs clear to auscultation Cardiovascular: RRR, no murmur, no edema Extremities: + AV fistula (+ bruit) Gastrointestinal (Abdomen): normal bowel sounds, soft, nontender, no hepatosplenomegaly Musculoskeletal: Extremities: no cyanosis and no clubbing Skin: no rashes, warm and dry Neurologic: awake; not confused Results & Data Vital Signs (Past 12 Hours) Vital Signs Temp Pulse Pulse Resp BP Pulse Ox O2 Del Method 07/30/24 07:55 36.5 C 78 16 129/83 100 Room Air 07/30/24 07:30 Room Air 07/30/24 07:10 80 07/30/24 06:23 100/67 07/30/24 03:29 36.9 C 70 18 99/56 L 95 Room Air 07/29/24 23:27 37.1 C 77 18 87/50 L 97 Room Air 07/29/24 21:57 76 Laboratory Results Abnormal Lab Results 07/29/24 07/30/24 21:18 05:52 WBC 5.75 RBC 2.99 L Hgb 9.1 L Hct 29.3 L MCV 98.0 MCH 30.4 MCHC 31.1 L RDW Std Deviation 58.6 H RDW Coeff of Hosea 16.3 H Plt Count 200 MPV 9.5 Sodium 138 Potassium 3.9 Chloride 102 Carbon Dioxide 25 Anion Gap 11 BUN 18 Creatinine 9.40 H* D Est Cr Clr Drug Dosing 9.5 eGFR 4.84 BUN/Creatinine Ratio 1.9 L Glucose 80 Calcium 7.8 L Nasal Screen MRSA (PCR) Negative PG Care Time/CCT Total # of Minutes Spent Total Time Spent with Patient: Total time spent is greater than 50% in coordination of care (as documented) at patient's floor/unit and/or counseling patient: Coding Level of Care Code 42231 SUB INP/OBS CARE 3/50MIN Diagnoses ESRD (end stage renal disease) on dialysis N18.6; Z99.2 Vomiting R11.2 Nausea presence: with nausea Vomiting type: unspecified Anemia D64.9 (2) Vomiting Nausea presence: with nausea Vomiting type: unspecified Qualified Code(s): R11.2 - Nausea with vomiting, unspecified
[2024-07-30] MEDS: EPOETIN ALFA 10,000 UNITS/ML VIAL IV ONE (12:25)
--- NOTE | 2024-07-30 16:21 | Hospitalist Progress Note ---
Date of Service July 30, 2024 Assessment & Plan (1) Trigger point of abdomen: Plan: 43yo female with history of ESRD on HD presenting with several weeks of nausea, vomiting, diarrhea, PO intolerance and lower abdominal pain. - History significant for extensive GI workup in past with multiple EGDs, small bowel enteroscopy, and colonoscopy within past 1 year - Does follow with GI outpatient for IBS constipation - CT A/P on admission without acute finding - Mesenteric US suggestive of high-grade SMA stenosis -- discussed findings with radiologist who feels findings on US were artifactual - CTA noting concerns for mild active bleeding. Only mild stenosis of SMA > Patient reports Aleve x 1 prior to admission, but does not typically take any NSAIDs since starting HD - GI consulted > EGD performed and benign this admission. Report noted NO evidence of gastritis, varices, blood, bleeding source or ulcer, esophagitis, or Barretts mucosa > Feels abdominal pain is functional -- increased dicyclomine for symptom improvement, Xifaxan TID x 14 days, wean off narcotics - Abdominal wall trigger points identified and injected x4 at bedside with Dr. Morrow on 07/29 > Improvement in symptoms; referral made to pain management clinic for outpatient follow-up - Continue Voltaren gel to abdomen - Continue pantoprazole BID - Pain regimen decreased, continue to wean off narcotics (2) GIB (gastrointestinal bleeding): Plan: S/p 1 unit PRBC with HD on 07/26 due to hgb of 7.5. Hgb augmented appropriately; remains stable but is downtrending. Will continue to monitor No melena or maroon or red stools noted (3) Superior mesenteric artery stenosis: Plan: Mesenteric US correlated with SMA stenosis of >70%. No mesenteric occlusion identified - CTA abd/pel though without any mention of mesenteric artery stenosis > Discussed discrepancy between US and CTA results with radiologist who believes findings on US were artifactual and only mild SMA stenosis - Cannot rule out this as the cause of epigastric pain, but lower suspicion (4) Vitamin D deficiency: Plan: Vit D low at 14.8 - Suspect 2nd hyperparathyroidism from CKD as well w/ elevated ALP - PO replacement started/would continue at discharge - ALP decreased on repeat (5) Dialysis patient: Plan: ESRD on HD q T/R/S - Nephrology consulted and following - Continues home cinacalcet/phoslo (6) Hypertension: Plan: Elevated BP upon arrival - patient received IV Labetalol with improved blood pressure - Continue home regimen of amlodipine 5 mg QAM and Labetalol 800 mg TID Hyperlipidemia - Continue Atorvastatin (7) Iron deficiency: Plan: Checked due to acute on chronic anemia w/ CKD - Iron/trans % sat and ferritin LOW - Venofer IV x 5 bags completed, received Epogen - Monitor CBC, PRBC as needed w/ HD Plan Decreased pain regimen Advanced diet VTE PPX: SCDs CODE STATUS: Full code Admission and Anticipated Discharge Date Admission Date: July 24, 2024 Supervising Physician Co-Signing Physician Notes PA Supervision Note: I did not personally see or examine the patient today, but I verified all paul points of RENNY Boateng's assessment and plan with the following exceptions/additions: None Subjective Patient seen and evaluated at bedside in dialysis. She reports improvement in her abdominal pain since her trigger point injections yesterday. She notes her pain is 67/10 currently, which was previously 910/10 pain. She has been well tolerating advancement of her diet. We discussed anticipated course moving forward. No additional questions or complaints or concerns at this time. Physical Exam Physical Exam: General: No acute distress, nondiaphoretic, well-developed, well-nourished. Cardiac: Regular rate and rhythm without murmurs gallops or rubs. LILIANA fistula +bruit. Pulm: Clear to auscultation bilaterally without wheezes, rales or rhonchi. No respiratory distress. 96% on room air. Abdominal: Soft, nondistended. Tender to palpation of epigastric region. Four abdominal point trigger points in epigastrium and laterally to left of epigastrium exquisitely tender. Bowel sounds present. No guarding or rebound tenderness. Neuro: A&O x3. No focal neurological deficits. Results & Data Results & Data Vital Signs (Past 12 Hours) Vital Signs Temp Pulse Pulse Pulse Resp BP BP 07/30/24 16:17 98.6 F 81 18 113/68 07/30/24 14:30 75 117/77 07/30/24 14:19 71 07/30/24 14:00 65 106/70 07/30/24 13:30 67 97/52 L 07/30/24 13:00 70 85/58 L 07/30/24 12:30 70 93/62 L 07/30/24 12:00 67 97/44 L 07/30/24 11:44 98.2 F 70 16 129/82 07/30/24 11:39 98.6 F 63 103/72 07/30/24 11:30 98.6 F 63 07/30/24 07:55 97.7 F 78 16 129/83 07/30/24 07:30 07/30/24 07:10 80 07/30/24 06:23 100/67 Pulse Ox O2 Del Method 07/30/24 16:17 96 Room Air 07/30/24 14:30 07/30/24 14:19 07/30/24 14:00 07/30/24 13:30 07/30/24 13:00 07/30/24 12:30 07/30/24 12:00 07/30/24 11:44 95 Room Air 07/30/24 11:39 07/30/24 11:30 07/30/24 07:55 100 Room Air 07/30/24 07:30 Room Air 07/30/24 07:10 07/30/24 06:23 Laboratory Results Reviewed CBC Reviewed BMP PG Care Time/CCT Total # of Minutes Spent Total Time Spent with Patient: Total time spent is greater than 50% in coordination of care (as documented) at patient's floor/unit and/or counseling patient: Coding Level of Care Code 07920 SUB INP/OBS CARE 2/35MIN Diagnoses Trigger point of abdomen R10.9 GIB (gastrointestinal bleeding) K92.2 Superior mesenteric artery stenosis K55.1 Vitamin D deficiency E55.9 Dialysis patient Z99.2 Hypertension I10 Hypertension type: unspecified Iron deficiency E61.1 (6) Hypertension Hypertension type: unspecified Qualified Code(s): I10 - Essential (primary) hypertension
[2024-07-30] MEDS: LIDOCAINE 2% LOCAL 50 ML VIAL INFIL ONE (16:26)
[2024-07-30] MEDS: oxyCODONE HCL IR 5 MG TAB (IMMEDIATE RELEASE) PO PRN (22:22)
[2024-07-31 06:32] LABS: Hemoglobin 9.2 g/dl (12.0-16.0); Mean Corpuscular Hemoglobin 30.9 pg (25.0-34.0); Mean Corpuscular Hgb Conc 31.7 g/dL (32.0-36.0); Mean Corpuscular Volume 97.3 fL (80.0-100.0); Mean Platelet Volume 9.9 fL (9.4-12.4); Nucleated RBC # (auto) 0.02 K/uL (0.00-0.12); Nucleated RBC % (auto) 0.3 %; Platelet Count 185 K/uL (130-400); RDW Coefficient of Variation 16.2 % (11.5-14.5); RDW Standard Deviation 56.6 fL (36.4-46.3); Red Blood Count 2.98 M/uL (4.20-5.40); White Blood Count 7.87 K/ul (4.8-10.8)
[2024-07-31 07:29] LABS: BUN Creatinine Ratio 1.9 (10-20); Calcium 7.9 mg/dl (8.6-10.3); Potassium 3.9 mmol/L (3.5-5.1)
--- NOTE | 2024-07-31 11:09 | Hospitalist Progress Note ---
Date of Service July 31, 2024 Assessment & Plan (1) Trigger point of abdomen: Plan: 43yo female with history of ESRD on HD presenting with several weeks of nausea, vomiting, diarrhea, PO intolerance and lower abdominal pain. - History significant for extensive GI workup in past with multiple EGDs, small bowel enteroscopy, and colonoscopy within past 1 year - Does follow with GI outpatient for IBS constipation - CT A/P on admission without acute finding - Mesenteric US suggestive of high-grade SMA stenosis -- discussed findings with radiologist who feels findings on US were artifactual - CTA noting concerns for mild active bleeding. Only mild stenosis of SMA > Patient reports Aleve x 1 prior to admission, but does not typically take any NSAIDs since starting HD - GI consulted > EGD performed and benign this admission. Report noted NO evidence of gastritis, varices, blood, bleeding source or ulcer, esophagitis, or Barretts mucosa > Feels abdominal pain is functional -- increased dicyclomine for symptom improvement, Xifaxan TID x 14 days, wean off narcotics - Abdominal wall trigger points identified and injected x4 at bedside with Dr. Morrow on 07/29 > Improvement in symptoms; referral made to pain management clinic for outpatient follow-up - Continue Voltaren gel to abdomen - Continue pantoprazole BID - Pain regimen decreased, continue to wean off narcotics (2) GIB (gastrointestinal bleeding): Plan: S/p 1 unit PRBC with HD on 07/26 due to hgb of 7.5. Hgb augmented appropriately; remains stable but is downtrending. Will continue to monitor No melena or maroon or red stools noted (3) Superior mesenteric artery stenosis: Plan: Mesenteric US correlated with SMA stenosis of >70%. No mesenteric occlusion identified - CTA abd/pel though without any mention of mesenteric artery stenosis > Discussed discrepancy between US and CTA results with radiologist who believes findings on US were artifactual and only mild SMA stenosis - Cannot rule out this as the cause of epigastric pain, but lower suspicion (4) Vitamin D deficiency: Plan: Vit D low at 14.8 - Suspect 2nd hyperparathyroidism from CKD as well w/ elevated ALP - PO replacement started/would continue at discharge - ALP decreased on repeat (5) Dialysis patient: Plan: ESRD on HD q T/R/S - Nephrology consulted and following - Continues home cinacalcet/phoslo (6) Hypertension: Plan: Elevated BP upon arrival - patient received IV Labetalol with improved blood pressure - Continue amlodipine 5 mg QAM - Labetalol DECREASED to 600 mg TID due to low normal BPs - discussed with metal fabricating inspector who agreed/approved of change; monitor BPs Hyperlipidemia - Continue Atorvastatin (7) Iron deficiency: Plan: Checked due to acute on chronic anemia w/ CKD - Iron/trans % sat and ferritin LOW - Venofer IV x 5 bags completed, received Epogen - Monitor CBC, PRBC as needed w/ HD Plan Adjusted pain regimen Decreased labetalol VTE PPX: SCDs CODE STATUS: Full code Admission and Anticipated Discharge Date Admission Date: July 24, 2024 Supervising Physician Co-Signing Physician Notes RENNY Supervision Note: I did not personally see or examine the patient today, but I verified all paul points of RENNY Boateng's assessment and plan with the following exceptions/additions: None Subjective Patient seen and evaluated at bedside. She notes that the night of the trigger point injections was the first time in over a month that she slept through the night because her pain was finally tolerable. She reports her pain has increased/returned compared to yesterday. We discussed clinical course moving forward. Discussed expectations, including that pain medication is not long- term option for her trigger points and further injections with pain clinic will likely be what controls her pain long-term. Discussed discontinuing IV pain medication today. She notes she does not have any pain relief from the oxy 5 mg, some relief with oxy 10 mg. She reports small bowel movements, denies constipation. Denies nausea currently. No additional questions, complaints, or concerns at this time. Physical Exam Physical Exam: General: No acute distress, nondiaphoretic, well-developed, well-nourished. Cardiac: Regular rate and rhythm without murmurs gallops or rubs. LILIANA fistula +bruit. Pulm: Clear to auscultation bilaterally without wheezes, rales or rhonchi. No respiratory distress. 97% on room air. Abdominal: Soft, nondistended. Tender to palpation of epigastric region. Four abdominal point trigger points in epigastrium and laterally to left of epigastrium exquisitely tender. Bowel sounds present. No guarding or rebound tenderness. Neuro: A&O x3. No focal neurological deficits. Results & Data Results & Data Vital Signs (Past 12 Hours) Vital Signs Temp Pulse Pulse Resp BP Pulse Ox O2 Del Method 07/31/24 08:01 98.1 F 74 14 118/78 97 Room Air 07/31/24 07:00 74 07/31/24 02:27 98.1 F 77 18 124/78 97 Room Air 07/30/24 23:35 79 Laboratory Results Reviewed CBC Reviewed BMP PG Care Time/CCT Total # of Minutes Spent Total Time Spent with Patient: Total time spent is greater than 50% in coordination of care (as documented) at patient's floor/unit and/or counseling patient: Coding Level of Care Code 34472 SUB INP/OBS CARE 3/50MIN Diagnoses Trigger point of abdomen R10.9 GIB (gastrointestinal bleeding) K92.2 Superior mesenteric artery stenosis K55.1 Vitamin D deficiency E55.9 Dialysis patient Z99.2 Hypertension I10 Hypertension type: unspecified Iron deficiency E61.1 (6) Hypertension Hypertension type: unspecified Qualified Code(s): I10 - Essential (primary) hypertension
[2024-07-31] MEDS ORDERED: oxyCODONE HCL IR 5 MG TAB (IMMEDIATE RELEASE) PO PRN (11:10)
[2024-07-31] MEDS: oxyCODONE HCL IR 5 MG TAB (IMMEDIATE RELEASE) PO PRN ×2 (12:11→17:10)
[2024-07-31] MEDS: LABETALOL HCL 300 MG TAB PO SCH (21:11)
[2024-08-01 07:49] LABS: Hematocrit (blood only) 30.8 % (37.0-47.0); Hemoglobin 9.4 g/dl (12.0-16.0); Mean Corpuscular Hemoglobin 30.4 pg (25.0-34.0); Mean Corpuscular Hgb Conc 30.5 g/dL (32.0-36.0); Mean Corpuscular Volume 99.7 fL (80.0-100.0); Mean Platelet Volume 9.5 fL (9.4-12.4); Platelet Count 209 K/uL (130-400); RDW Coefficient of Variation 16.7 % (11.5-14.5); RDW Standard Deviation 58.6 fL (36.4-46.3); Red Blood Count 3.09 M/uL (4.20-5.40); White Blood Count 6.51 K/ul (4.8-10.8)
[2024-08-01 08:04] VITALS: RESP 15
[2024-08-01 08:17] LABS: BUN Creatinine Ratio 2.5 (10-20); Calcium 7.9 mg/dl (8.6-10.3); Creatinine Clr Calc Pharmacy 11.5 ml/min
[2024-08-01 11:32] VITALS: BP 101/64; PULSE 74; TEMP 98.1; O2SAT 97
--- NOTE | 2024-08-01 12:50 | Nephrology Progress Note ---
Date of Service August 01, 2024 Assessment & Plan (1) End-stage renal disease on hemodialysis: (2) Secondary hyperparathyroidism of renal origin: (3) Hypertension: (4) Chronic abdominal pain: (5) Anemia due to chronic kidney disease: Plan 43-year-old female with end-stage kidney disease, on hemodialysis Friday, , Friday, admitted to the hospital with abdominal pain workup has been unremarkable. Pain seem to have improved with trigger point injection and ove rall feeling better. Blood pressure has been well-controlled. Volume status acceptable, electrolyte acceptable. -- Okay to be discharged from nephrology standpoint, she will have dialysis tomorrow as change schedule because of the upcoming holidays. -- Okay to continue on current dose of antihypertensive medications, phosphate binder and renal capsule on discharge. Admission and Anticipated Discharge Date Admission Date: July 24, 2024 Subjective Astrid was seen and evaluated this morning, overall she reports improvement in pain and eager to go home. Blood pressure remained well-controlled, vital sign other electrolyte acceptable. Review of Systems Review of Systems: Detailed review of system was otherwise unremarkable. Physical Exam Constitutional: WD/WN, vitals as above no acute distress Eyes: + anicteric sclerae Neck: normal visual inspection Respiratory: Auscultation: lungs clear to auscultation bilaterally Cardiovascular: RRR, no murmur, no edema Skin: no rashes, warm and dry Neurologic: no focal motor deficits Psychiatric: Orientation: alert and oriented x 3 Results & Data Vital Signs (Past 12 Hours) Vital Signs Temp Pulse Pulse Resp BP Pulse Ox O2 Del Method 08/01/24 11:31 36.7 C 74 15 101/64 97 Room Air 08/01/24 08:30 Room Air 08/01/24 08:01 36.5 C 76 15 116/71 96 Room Air 08/01/24 07:34 75 08/01/24 01:50 36.6 C 74 16 113/63 96 Room Air PG Care Time/CCT Total # of Minutes Spent Total Time Spent with Patient: Total time spent is greater than 50% in coordination of care (as documented) at patient's floor/unit and/or counseling patient: Coding Level of Care Code 98431 SUB INP/OBS CARE 25MIN Diagnoses End-stage renal disease on hemodialysis N18.6; Z99.2 Secondary hyperparathyroidism of renal origin N25.81 Hypertension I10 Hypertension type: unspecified Chronic abdominal pain R10.9; G89.29 Anemia due to chronic kidney disease N18.9; D63.1 (3) Hypertension Hypertension type: unspecified Qualified Code(s): I10 - Essential (primary) hypertension
--- NOTE | 2024-08-01 14:00 | Discharge Summary ---
Discharge Summary Date of Service August 01, 2024 Principal Dx & Hospital Course #1 = Principal Diagnosis (1) Trigger point of abdomen: 43yo female with history of ESRD on HD presented with several weeks of nausea, vomiting, diarrhea, PO intolerance and lower abdominal pain. - History significant for extensive GI workup in past with multiple EGDs, small bowel enteroscopy, and colonoscopy within past 1 year - Does follow with GI outpatient for IBS constipation - CT A/P on admission without acute finding - Mesenteric US suggestive of high-grade SMA stenosis -- discussed findings with radiologist who feels findings on US were artifactual - CTA noting concerns for possible mild active bleeding. Only mild stenosis of SMA > Patient reports Aleve x 1 prior to admission, but does not typically take any NSAIDs since starting HD - GI consulted > EGD performed and benign this admission. Report noted NO evidence of gastritis, varices, blood, bleeding source or ulcer, esophagitis, or Turner's mucosa > Feels abdominal pain is functional - Abdominal wall trigger points identified and injected x4 at bedside with Dr. Morrow on 07/29 > Improvement in symptoms; referral made to pain management clinic for outpatient follow-up - Continue Voltaren gel to abdomen - Continue pantoprazole BID - Discharged with oxycodone 10 mg x 30 tablets, Zofran, recommend close follow- up with pain management clinic (2) GIB (gastrointestinal bleeding): S/p 1 unit PRBC with HD on 07/26 due to hgb of 7.5. Hgb augmented appropriately; remains stable No melena or maroon or red stools noted (3) Superior mesenteric artery stenosis: Mesenteric US correlated with SMA stenosis of >70%. No mesenteric occlusion identified - CTA abd/pel though without any mention of mesenteric artery stenosis > Discussed discrepancy between US and CTA results with radiologist who believes findings on US were artifactual and only mild SMA stenosis - Most likely not the cause of epigastric pain (4) Vitamin D deficiency: Vit D low at 14.8 - Suspect 2nd CKD - PO replacement started/continued at discharge (5) Dialysis patient: ESRD on HD q T/R/S - Nephrology consulted - Continues home cinacalcet/phoslo - Scheduled for outpatient dialysis treatment on 08/02 (6) Hypertension: Elevated BP upon arrival - patient received IV Labetalol with improved blood pressure - Continue amlodipine 5 mg QAM - Labetalol DECREASED to 600 mg TID due to low BPs - 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 Recommend close follow-up with pain management clinic for further injections. Monitor blood pressures. BPs were running low normal this admission, labetalol was decreased to 600 mg three times daily. With recent significant weight loss, further decrease may be necessary Medication Changes From Visit Decrease labetalol to 600 mg Started vitamin D supplementation Oxycodone 10 mg x 30 tablets Zofran as needed Admission HPI Per Admitting Provider Astrid Gallardo is a pleasant 43yo female with history of ESRD on HD, HTN, PUD presenting with ongoing abdominal pain, nausea, vomiting and PO intolerance. Patient reports she started feeling ill with lower abdominal pain/cramping, dysuria, nausea, vomiting and inability to tolerate PO on 07/19/24. Her symptoms have been persistent with worsening lower abdominal pain. She did go to HD today and had a full treatment. She had two episodes of vomiting today and was unable to take her medications. Patient also with several episodes of diarrhea, non-bloody and chills. She denies chest pain, palpitations, cough, back pain In the ER she is afebrile, hypertensive Given Morphine for pain with improvement ER Course: Morphine 4mg IV + 2mg IV Labetalol 10mg IV Ceftriaxone 2gm IV Zofran 4mg IV Discharge Exam General: No acute distress, nondiaphoretic, well-developed, well-nourished. Cardiac: Regular rate and rhythm without murmurs gallops or rubs. LILIANA fistula +bruit. Pulm: Clear to auscultation bilaterally without wheezes, rales or rhonchi. No respiratory distress. 97% on room air. Abdominal: Soft, nondistended. Tender to palpation of epigastric region. Four abdominal point trigger points in epigastrium and laterally to left of epigastrium exquisitely tender. Bowel sounds present. No guarding or rebound tenderness. Neuro: A&O x3. No focal neurological deficits. Discharge Plan Discharge Items Patient Disposition: Home - Self-Care Reason For Visit: ABD PAIN, SMA STENOSIS Discharge Diagnosis: Abdominal wall trigger points Condition on Discharge: Fair Activity: Resume your previous activity Non-emergency contact: Primary Care Provider, Hospital Insurance Representative and Pain Management Call non-emergency contact if: you have any medication questions, your symptoms worsen, your pain is not controlled, your pain is worsening and you have a fever Follow-up/Referrals: Jacques Zhang III, CRNP [Primary Care Provider] - (Please follow up within 1- 2 weeks) Diet: Dialysis Renal Addtl Attending Provider Instructions: Astrid, You were admitted to the hospital for abdominal pain, nausea, vomiting, and diarrhea. You had an extensive workup, including CT scan of your abdomen and pelvis, mesenteric ultrasound, CTA of your abdomen and pelvis, and EGD, which were negative. It was discovered that you have abdominal trigger points, and injections were performed this hospitalization. Since you noticed improvement in your pain after these, I suspect the abdominal trigger points are at least part of (if not all) of the picture here. Additionally, your vitamind D level was low, so oral supplementation has been started daily and will continue at home. Also, your blood pressures were running on the low side, so your labetalol dose was decreased. Upon discharge from the hospital: * Follow-up with the pain management clinic for further trigger point injections. A referral has been made for you and I will ensure an appointment is scheduled. Their office will call you with appointment details. * Take oxycodone 10 mg every 4 hours NEEDED for severe pain. Do not drive or operate heavy machinery while taking oxycodone. * Take Zofran 1 tablet every 6 hours as needed for nausea. * Use Voltaren gel on your stomach (where the trigger points are). You can do this four times daily. This is available over the counter, so no prescription is required. * Take stool softener (like MiraLAX) to prevent constipation, especially while taking narcotic pain medication. These are available over the counter, so no prescription is required. * Your Labetalol dose was DECREASED to 600 mg three times daily - continue this dose and monitor your blood pressure. * Continue Vit D supplement daily. * Continue your dialysis as scheduled. * Follow-up with GI as needed. * Follow-up with your PCP in 1 week. It was a pleasure taking care of you while you were in the hospital, Cele Boateng PA-C Pending Studies at Discharge: No Stand-Alone Forms: My [facility], Smoking Cessation Medications and DC Order Prescriptions: New labetalol 300 mg Tablet 600 mg PO TID Qty: 90 0RF oxycodone 5 mg Tablet 10 mg PO Q4H PRN (Reason: pain) Qty: 30 0RF cholecalciferol (vitamin D3) 25 mcg (1,000 unit) Capsule 25 mcg PO QAM Qty: 30 0RF ondansetron HCl 4 mg tablet 4 mg PO Q6H PRN (Reason: nausea and vomiting) Qty: 30 0RF Continued atorvastatin [Lipitor] 10 mg tablet 10 mg PO QPM Qty: 90 1RF pantoprazole 40 mg tablet,delayed release (DR/EC) 40 mg PO BID 90 Days Qty: 180 3RF Rx Instructions: TAKE 1 TAB BY MOUTH TWICE DAILY rizatriptan [Maxalt-DOCUMENTATION COORDINATOR] 10 mg tablet,disintegrating 10 mg PO Q2H PRN (Reason: migraine headache) 30 Days Qty: 9 5RF Rx Instructions: do not exceed 3 doses per 24 hrs sumatriptan succinate [Imitrex STATdose Pen] 6 mg/0.5 mL pen injector 6 mg subcut UD PRN (Reason: Headache) Qty: 1 3RF Rx Instructions: 6 mg subcut at onset of headache may repeat in 2 hours, max 2 injections per day no more than 2 days per week; dicyclomine 10 mg capsule 10 mg PO TID PRN (Reason: abdominal pain) Qty: 30 0RF gabapentin 100 mg capsule 100 mg PO .COMPLEX Qty: 120 5RF Rx Instructions: 2 caps po in the morning, 1 cap po in the afternoon, and 1 cap po at bedtime. triamcinolone acetonide 0.1 % ointment 1 applic topical TID Qty: 15 1RF calcium acetate(phosphat bind) 667 mg Capsule 2,001 mg PO TIDM cinacalcet 30 mg tablet 30 mg PO QAM Rx Instructions: take with largest meal of day amlodipine 5 mg tablet 5 mg PO QAM Rx Instructions: Take 1 tablet by mouth every morning amitriptyline 50 mg tablet 50 mg PO HS Linzess 145 mcg capsule 145 mcg PO QPM PRN (Reason: Constipation) Discontinued labetalol 200 mg tablet 800 mg PO TID Qty: 360 3RF Rx Instructions: TAKE 4 TABLETS THREE TIMES DAILY Discharge Orders: Discharge Order (Routine); Ordered 08/01/24 Ordered By: Cele Boateng Admission Data Admit Date/Time: 07/24/24 13:15 Attending Provider: Lupe Moise Admit Provider: Alex Cavanaugh Primary Care Provider: Jacques Zhang III Other Providers: Ignacia Park; Juan Flores; Nik Taylor; Juan Antonio Sherman Hospital Stay Data Consultations 07/22/24 21:55 ED Decision to Admit Stat 07/23/24 12:22 Consult Nephrology Routine 07/23/24 14:31 Consult Gastroenterology Routine 07/29/24 10:16 Consult Vascular Surgery Routine Procedures Performed Operation Date: 07/26/24 16:30 Actual Procedures p Esophagogastroduodenoscopy - Ladarius Zuniga MD Diagnostic Imagining Performed 07/22/24 19:17 CT abd pelvis wo con Stat 07/24/24 08:21 US duplex mesenteric Routine 07/25/24 07:48 CT angio abdomen pelvis w con Routine Pending Results Patient Have Any Pending Studies at Discharge: No Discharge Instructions Given to Patient (Per Discharging Provider) Astrid, You were admitted to the hospital for abdominal pain, nausea, vomiting, and diarrhea. You had an extensive workup, including CT scan of your abdomen and pelvis, mesenteric ultrasound, CTA of your abdomen and pelvis, and EGD, which were negative. It was discovered that you have abdominal trigger points, and injections were performed this hospitalization. Since you noticed improvement in your pain after these, I suspect the abdominal trigger points are at least part of (if not all) of the picture here. Additionally, your vitamind D level was low, so oral supplementation has been started daily and will continue at home. Also, your blood pressures were running on the low side, so your labetalol dose was decreased. Upon discharge from the hospital: * Follow-up with the pain management clinic for further trigger point injections. A referral has been made for you and I will ensure an appointment is scheduled. Their office will call you with appointment details. * Take oxycodone 10 mg every 4 hours NEEDED for severe pain. Do not drive or operate heavy machinery while taking oxycodone. * Take Zofran 1 tablet every 6 hours as needed for nausea. * Use Voltaren gel on your stomach (where the trigger points are). You can do this four times daily. This is available over the counter, so no prescription is required. * Take stool softener (like MiraLAX) to prevent constipation, especially while taking narcotic pain medication. These are available over the counter, so no prescription is required. * Your Labetalol dose was DECREASED to 600 mg three times daily - continue this dose and monitor your blood pressure. * Continue Vit D supplement daily. * Continue your dialysis as scheduled. * Follow-up with GI as needed. * Follow-up with your PCP in 1 week. It was a pleasure taking care of you while you were in the hospital, Cele Boateng PA-C Supervising Physician Co-Signing Physician Notes PA Supervision Note: I personally saw and examined the patient. I verified all paul points and agree with RENNY Boateng with the following exceptions and/or additions: S-Pt feeling much better with abd pain. Is moving bowels, ready for discharge O- Vitals reviewed Gen: [AAOx3, NAD] HEENT: [anicteric sclerae] CV: [RRR no mgr nl S1S2] Pulm: [CTAB no wcr] Abd: [+BS soft mild TTP midline abdomen w/o guarding or rebound] Ext: [no edema] Skin: [no rashes, warm/dry] A/P-43 yo female here with abd pain-likely from trigger points and functional abd pain. Improved with trigger point injections, opioids stable for dc to home Total Time Total Time Spent Total Time Spent (In Minutes): Greater than 30 minutes spent completing this discharge process including direct patient care, medication reconciliation, documentation, review of labs and images, and coordination of care. Coding Level of Care Code 72487 INP/OBS DISCH >30 MIN Diagnoses Trigger point of abdomen R10.9 GIB (gastrointestinal bleeding) K92.2 Superior mesenteric artery stenosis K55.1 Vitamin D deficiency E55.9 Dialysis patient Z99.2 Hypertension I10 Hypertension type: unspecified Iron deficiency E61.1
--- NOTE | 2024-08-03 09:52 | Coding Query ---
CODING QUERY To promote full compliance with coding requirements relating to patient care, provider participation is requested in all cases of rn delivery uncertainty. Please assist us with the question(s) below: In the record, it states that the patient has an UTI. Please clarify below the cause of the UTI if applicable. Thank you. ( ) UTI, unspecified cause. ( ) Self-catheterization was the cause of the UTI. ( ) Other (Specify): ( x ) Ruled Out Principal Diagnosis: "that condition established after study, to be chiefly responsible for occasioning the admission of the patient to the hospital for care." Co-Existing Principal Diagnosis: "when two or more diagnoses equally meet the criteria for principal diagnosis as determined by the circumstances of admission, diagnostic work up, and/or therapy provided, and the Alphabetic Index, Tabular List, or another coding guideline does not provide sequencing direction, any one of the diagnoses may be sequenced first." "When the physician has documented what appears to be a current diagnosis in the body of the record, but has not included the diagnosis in the final diagnostic statement, the physician should be asked whether the diagnosis should be added." ([facility] 2 QTR90. p3-4) THAD
--- NOTE | 2024-08-03 09:57 | Coding Query ---
CODING QUERY To promote full compliance with coding requirements relating to patient care, provider participation is requested in all cases of clinical immunologist uncertainty. Please assist us with the question(s) below: Coding Question(s): Throughout progress notes, GI Bleed is given as diagnosis. EGD note states no bleeding, ulcer, abnormal findings, however, GI bleed is still listed as dx. Please clarify. Physician's Response(s): ( x ) GI Bleed, Upper ( ) POA ( ) Not POA ( x ) R/O ( ) GI Bleed, Lower ( ) POA ( ) Not POA ( ) R/O Thank you Fanta Ruiz Principal Diagnosis: "that condition established after study, to be chiefly responsible for occasioning the admission of the patient to the hospital for care." Co-Existing Principal Diagnosis: "when two or more diagnoses equally meet the criteria for principal diagnosis as determined by the circumstances of admission, diagnostic work up, and/or therapy provided, and the Alphabetic Index, Tabular List, or another coding guideline does not provide sequencing direction, any one of the diagnoses may be sequenced first." "When the physician has documented what appears to be a current diagnosis in the body of the record, but has not included the diagnosis in the final diagnostic statement, the physician should be asked whether the diagnosis should be added." ([facility] 2 QTR90. p3-4) THAD
== END 2024-08-01 15:16 | disposition home or self-care (01) | DRG 391 ==
LOC: ED 19:00 → 3N 19:00 → SUATTDRO 22:39 → 3N 23:27 → SUATTDRO 07-24 13:15 → 2N 07-25 18:13

== ENCOUNTER 2024-08-21 09:24 | Inpatient (IN) ==
[2024-08-21 10:23] LABS: Basophils # (auto) 0.04 K/uL (0.00-0.20); Basophils % (auto) 0.3 %; Eosinophils # (auto) 0.03 K/uL (0.00-0.50); Eosinophils % (auto) 0.2 %; Hematocrit (blood only) 34.2 % (37.0-47.0); Immature Granulocytes # (auto) 0.06 K/uL (0.01-0.20); Immature Granulocytes % (auto) 0.5 %; Lymphocytes # (auto) 1.05 K/uL (1.20-3.40); Lymphocytes % (auto) 8.2 %; Mean Corpuscular Hemoglobin 31.4 pg (25.0-34.0); Mean Corpuscular Hgb Conc 32.2 g/dL (32.0-36.0); Mean Corpuscular Volume 97.7 fL (80.0-100.0); Mean Platelet Volume 9.8 fL (9.4-12.4); Monocytes # (auto) 0.53 K/uL (0.11-0.59); Monocytes % (auto) 4.1 %; Neutrophils # (auto) 11.14 K/uL (1.40-6.50); Neutrophils % (auto) 86.7 %; Platelet Count 254 K/uL (130-400); RDW Coefficient of Variation 17.2 % (11.5-14.5); RDW Standard Deviation 60.5 fL (36.4-46.3); White Blood Count 12.85 K/ul (4.8-10.8)
[2024-08-21 10:44] LABS: Base Excess VBG 1.8 mEq/L; HCO3 VBG 29 mmol/L; Oxygen Saturation VBG < 60.0 %; PCO2 VBG 53 mmHg (38-50); PO2 VBG 24 mmHg; pH VBG 7.34 (7.36-7.41)
[2024-08-21] MEDS: OPTIRAY 320 125ml IV ONE (10:59)
--- NOTE | 2024-08-21 11:01 | XRay Report ---
XR chest 1V portable CLINICAL HISTORY: fluid overload COMPARISON STUDY: Chest radiograph July 22, 2024. FINDINGS: Lung volumes are normal. Lungs are clear. There is no pneumothorax or pleural effusion. Car diomegaly is unchanged. Mediastinal contours are normal. There is no evidence for pulmonary edema. IMPRESSION: Stable cardiomegaly. No evidence for pulmonary edema. ACT 112: Negative or not required by law. Electronically signed by: Jose Alberto Addison M.D. 08/21/2024 10:59 AM
[2024-08-21 11:02] LABS: Alanine Aminotransferase 13 U/L (7-52); BUN Creatinine Ratio 4.3 (10-20); Bilirubin,Total 0.5 mg/dl (0.2-1.0); Blood Urea Nitrogen 44 mg/dl (6-23); Calcium 9.5 mg/dl (8.6-10.3); Carbon Dioxide 24 mmol/L (21-32); Chloride 92 mmol/L (98-107); Creatinine Clr Calc Pharmacy 8.5 ml/min; Glucose 90 mg/dl (70-99(Fasting)); Total Protein 8.2 gm/dl (6.0-8.3)
--- NOTE | 2024-08-21 11:33 | Emergency Department Note ---
Impression & Plan Acute respiratory distress, ESRD (end stage renal disease) on dialysis ED Provider Note NAME: MARIUM TREJO AGE: 43 SEX: F : 1980 ARRIVES VIA: Ambulance INFORMANT: Patient, ED PROVIDER(S): Janet Cohen MD CHIEF COMPLAINT: Nausea, vomiting HPI: This is a 43-year-old female presenting for nausea vomiting shortness of breath. Patient notes that she has had nausea vomiting for past 1 day. She notes that she mostly feels short of breath at this time. She reports no significant abdominal pain. She reports no diarrhea. She does report that she is post go to dialysis today but was unable to go due to the illness. She reports no significant fever at this time ROS: See above HPI for pertinent positives & negatives. A total of 10 systems reviewed and were otherwise negative. PAST MEDICAL HISTORY: See Below PAST SURGICAL HISTORY: See Below FAMILY HISTORY: See Below SOCIAL HISTORY: See Below HOME MEDICATIONS: See Below ALLERGIES: See Below VITALS: See Below PHYSICAL EXAMINATION: General: Drowsy, easily arousable Head: Normocephalic and atraumatic Eyes: Normal inspection, extraocular muscles intact Ear, nose, throat: Normal external exam Neck: Normal range of motion Respiratory: Rhonchi in all lung damian Cardiovascular: Regular rate/rhythm, no murmur GI: soft, nontender, no guarding or rebound Extremities: nontender, moves all extremities Neuro: The patient awake and alert, appropriately conversive, no focal deficits, symmetric faces Skin: Warm, dry, and intact MEDICAL DECISION MAKING: This is a 43-year-old female present for nausea vomiting shortness of breath. Patient appears to have respiratory distress at this time. Considered fluid overload, pneumonia, PE, URI -Blood work reviewed showing slightly cytosis 12.85, anemia to 11. Electrolytes fairly within normal range. Creatinine 10.31. VBG shows 7.34/53, within normal limits relatively. -Chest Xray independently interpreted by me showing no pneumothorax, focal opacity, or pleural effusions. -CTA PE protocol is ordered is ordered for concern of PE due to respiratory distress. - Large PE is not identified, no pneumonia, there is cardiomegaly. -The patient is still in respiratory distress, mildly somnolent but easily arousable at this time. She will require admission. -Discussed care with Dr. Morrow, for admission of her unclear respiratory distress. She is not appear hypercarbic, fluid overloaded, pneumonia or PE on exam. -Patient taken to dialysis as she did miss this Differential diagnosis: PE, ACS,URI, pneumonia Diagnostics interpreted by me: ECG: ECG independently interpreted by me with normal sinus rhythm, rate of 88, left axis deviation, normal TN, normal QRS, normal QTc, no ST segment elevations consistent with STEMI criteria Cardiac Monitoring: An order was placed for continuous cardiac monitoring. The monitor shows a rate of 82 with sinus rhythm. Past Med/Surg History Problem List (Updated 08/22/24 @ 15:03 by Janet Cohen MD) Acute respiratory distress (Acute) DVT prophylaxis Hypercarbia Delirium Anemia due to chronic kidney disease Trigger point of abdomen Chronic abdominal pain GIB (gastrointestinal bleeding) Dialysis patient (Acute) Hypertension (Acute) Internal hemorrhoids Iron deficiency anemia Complex renal cyst Recurrent infective cystitis Carpal tunnel syndrome on both sides Polyneuropathy Iron deficiency Idiopathic polyneuropathy Liver lesion, left lobe Peptic ulcer disease ESRD (end stage renal disease) on dialysis (Acute) Dysmenorrhea Menorrhagia Myalgia Sensation of pressure in bladder area Migraine Abnormal MRI Balance problem Recurrent urinary tract infection Nausea Intractable nausea and vomiting Left kidney mass (Acute) Hypercholesterolemia (Chronic) Asthma (Chronic) no issues currently Low thyroid stimulating hormone (TSH) level (Chronic) Vitamin D deficiency (Chronic) Secondary hyperparathyroidism of renal origin (Chronic) CKD (chronic kidney disease) requiring chronic dialysis (Chronic) Chronic renal failure (Chronic) Psoriasis (Chronic) Eczema (Chronic) Irritable bowel syndrome with diarrhea (Chronic) GERD (gastroesophageal reflux disease) End-stage renal disease on hemodialysis dialysis tue/thur/sat--follows with Dr. Crawford Chronic back pain (Chronic) Depression with anxiety (Chronic) LVH (left ventricular hypertrophy) (Chronic) Renal cyst (Chronic) Medical History Superior mesenteric artery stenosis Demyelinating disease End stage renal disease on dialysis Abnormal CT of brain Recurrent UTI (urinary tract infection) currently on Cefdinir Bilateral carpal tunnel syndrome Hx of migraines Iron deficiency anemia Hyperlipidemia History of asthma PUD (peptic ulcer disease) Hx of renal calculi Lumbar radiculopathy Morbid obesity with BMI of 45.0-49.9, adult Hypertension History of gastric ulcer A-V fistula right arm Surgical History H/O tubal ligation History of abdominoplasty repair skin around scar History of section x4 History of esophagogastroduodenoscopy (EGD) History of wisdom tooth extraction Family History Mother Family history of diabetes mellitus Sister Family history of diabetes mellitus x3 Aunt Heart disease Father Family history of kidney disease Other No family history of adverse response to anesthesia Denies family history of Pancreatic cancer Ovarian cancer Prostate cancer Myocardial infarction Breast cancer Colorectal cancer Uterine cancer Social History Smoking Status: Former smoker Second Hand Exposure: No; Do You Dip or Chew Tobacco: No; Hx Alcohol Use: No Hx Substance Use: Yes Prescribed Medications: Marijuana Last Used Substance Other:: months ago Preferred Language: Albanian Communication Ability: Effective Visual Impairment: No Limitations Hearing Ability: Normal Attorney Recruiter Required: No Beliefs That Will Affect Care: None marital status: Single Current Living Situation: Family Current Living Situation Comment: 2 children current occupational status: disabled How many Children do You have: 3 Feels Safe at Home: Yes Childhood Exposure to Second-Hand Smoke: No Diet: regular caffeine: Yes during the past year weight has: decreased > 10 lbs Dental Care, Regularly: Yes Physical Activity Frequency: Daily Seatbelt Use: always Sunscreen Use: Yes Assistive Devices: None Allergies Allergies Allergy/AdvReac Type Severity Reaction Status Date / Time pneumococcal 7-valent Allergy Severe Swelling Verified 08/18/24 08:56 conjugate to of [From Prevnar] Lip/Tongue/Throat Home Meds Home Medications Medication Instructions Recorded Confirmed calcium acetate(phosphat bind) 667 0 mg PO TIDM 09/30/18 08/21/24 mg capsule cinacalcet 30 mg tablet 0 mg PO QAM 08/02/20 08/21/24 linaclotide 145 mcg capsule 145 mcg PO QPM PRN Constipation 12/02/23 08/21/24 (Linzess) amitriptyline 50 mg tablet 50 mg PO HS 07/22/24 08/21/24 gabapentin 100 mg capsule 100 mg PO UD 08/21/24 08/21/24 oxycodone 5 mg tablet 0 mg PO Q4H PRN pain 08/21/24 08/21/24 Previous Rx's Medication Instructions Recorded pantoprazole 40 mg tablet,delayed 40 mg PO BID 90 days #180 tabs 11/07/23 release sumatriptan succinate 6 mg/0.5 mL 6 mg (0.5 mL) subcut UD PRN 12/17/23 subcutaneous pen injector (Imitrex Headache #1 mL STATdose Pen) dicyclomine 10 mg capsule 10 mg PO TID PRN abdominal pain 06/28/24 #30 caps cholecalciferol (vitamin D3) 25 25 mcg PO QAM #30 caps 08/01/24 mcg (1,000 unit) capsule labetalol 300 mg tablet 600 mg (2 x 300 mg) PO TID #90 tabs 08/01/24 ondansetron HCl 4 mg tablet 4 mg PO Q6H PRN nausea and 08/01/24 vomiting #30 tabs rizatriptan 10 mg disintegrating 10 mg PO Q2H PRN migraine headache 08/16/24 tablet (Maxalt-MINE MANAGER) 30 days #9 tabs amlodipine 5 mg tablet 5 mg PO QAM #90 tabs 08/18/24 baclofen 10 mg tablet 10 mg PO TID PRN muscle spasm #30 08/18/24 tabs docusate sodium 100 mg capsule 100 mg PO DAILY #90 caps 08/19/24 (Colace) Results & Data (ED) Vital Signs Vital Signs - 24 hr 08/21/24 15:00 08/21/24 15:30 Pulse Rate 82 98 H Blood Pressure 143/106 H 158/106 H Blood Pressure Position Lying Lying Laboratory Data 08/22/24 05:49 08/22/24 05:49 Lab Results 08/21/24 08/21/24 08/21/24 Range/Units 09:37 10:30 10:45 WBC 12.85 H (4.8-10.8) K/ul RBC 3.50 L (4.20-5.40) M/uL Hgb 11.0 L (12.0-16.0) g/dl Hct 34.2 L (37.0-47.0) % MCV 97.7 (80.0-100.0) fL MCH 31.4 (25.0-34.0) pg MCHC 32.2 (32.0-36.0) g/dL RDW Std Deviation 60.5 H (36.4-46.3) fL RDW Coeff of Hosea 17.2 H (11.5-14.5) % Plt Count 254 (130-400) K/uL MPV 9.8 (9.4-12.4) fL Immature Gran % (Auto) 0.5 % Neut % (Auto) 86.7 % Lymph % (Auto) 8.2 % [place] % (Auto) 4.1 % Eos % (Auto) 0.2 % Baso % (Auto) 0.3 % Neut # (Auto) 11.14 H (1.40-6.50) K/uL Lymph # (Auto) 1.05 L (1.20-3.40) K/uL [place] # (Auto) 0.53 (0.11-0.59) K/uL Eos # (Auto) 0.03 (0.00-0.50) K/uL Baso # (Auto) 0.04 (0.00-0.20) K/uL Immature Gran # (Auto) 0.06 (0.01-0.20) K/uL VBG pH 7.34 L (7.36-7.41) VBG pCO2 53 H (38-50) mmHg VBG pO2 24 mmHg VBG HCO3 29 mmol/L VBG O2 Saturation < 60.0 % VBG Base Excess 1.8 mEq/L Sodium TNP Potassium TNP Chloride 92 L (98-107) mmol/L Carbon Dioxide 24 (21-32) mmol/L Anion Gap TNP BUN 44 H (6-23) mg/dl Creatinine 10.31 H* (0.6-1.2) mg/dl Est Cr Clr Drug Dosing 8.5 ml/min eGFR 4.33 BUN/Creatinine Ratio 4.3 L (10-20) Glucose 90 (70-99(Fasting)) mg/dl Lactate 1.5 (0.4-2.0) mmol/L Calcium 9.5 (8.6-10.3) mg/dl Total Bilirubin 0.5 (0.2-1.0) mg/dl AST TNP ALT 13 (7-52) U/L Alkaline Phosphatase TNP C-Reactive Protein (0-0.5) mg/dl Total Protein 8.2 (6.0-8.3) gm/dl Albumin TNP Globulin TNP Albumin/Globulin Ratio TNP Adenovirus (PCR) Not Detected (NotDetected) B. pertussis DNA (PCR) Not Detected (NotDetected) B.parapertussis DNA PCR Not Detected (NotDetected) C. pneumoniae DNA (PCR) Not Detected (NotDetected) Coronavirus OC43 (PCR) Not Detected (NotDetected) Coronavirus HKU1 (PCR) Not Detected (NotDetected) Coronavirus 229E (PCR) Not Detected (NotDetected) SARS-CoV-2 (PCR) Not Detected (NotDetected) Coronavirus NL63 (PCR) Not Detected (NotDetected) Human Metapneumovir PCR Not Detected (NotDetected) Influenza Type A (PCR) Not Detected (NotDetected) Influenza Type B (PCR) Not Detected (NotDetected) M. pneumoniae (PCR) Not Detected (NotDetected) Parainfluenza 1 (PCR) Not Detected (NotDetected) Parainfluenza 2 (PCR) Not Detected (NotDetected) Parainfluenza 3 (PCR) Not Detected (NotDetected) Parainfluenza 4 (PCR) Not Detected (NotDetected) RSV (PCR) Not Detected (NotDetected) Entero/Rhino (PCR) Not Detected (NotDetected) 08/21/24 Range/Units 11:19 WBC (4.8-10.8) K/ul RBC (4.20-5.40) M/uL Hgb (12.0-16.0) g/dl Hct (37.0-47.0) % MCV (80.0-100.0) fL MCH (25.0-34.0) pg MCHC (32.0-36.0) g/dL RDW Std Deviation (36.4-46.3) fL RDW Coeff of Hosea (11.5-14.5) % Plt Count (130-400) K/uL MPV (9.4-12.4) fL Immature Gran % (Auto) % Neut % (Auto) % Lymph % (Auto) % [place] % (Auto) % Eos % (Auto) % Baso % (Auto) % Neut # (Auto) (1.40-6.50) K/uL Lymph # (Auto) (1.20-3.40) K/uL [place] # (Auto) (0.11-0.59) K/uL Eos # (Auto) (0.00-0.50) K/uL Baso # (Auto) (0.00-0.20) K/uL Immature Gran # (Auto) (0.01-0.20) K/uL VBG pH (7.36-7.41) VBG pCO2 (38-50) mmHg VBG pO2 mmHg VBG HCO3 mmol/L VBG O2 Saturation % VBG Base Excess mEq/L Sodium 140 Potassium 4.8 Chloride (98-107) mmol/L Carbon Dioxide (21-32) mmol/L Anion Gap BUN (6-23) mg/dl Creatinine (0.6-1.2) mg/dl Est Cr Clr Drug Dosing ml/min eGFR BUN/Creatinine Ratio (10-20) Glucose (70-99(Fasting)) mg/dl Lactate (0.4-2.0) mmol/L Calcium (8.6-10.3) mg/dl Total Bilirubin (0.2-1.0) mg/dl AST 16 ALT (7-52) U/L Alkaline Phosphatase 135 H C-Reactive Protein 1.59 H (0-0.5) mg/dl Total Protein (6.0-8.3) gm/dl Albumin 4.4 Globulin Albumin/Globulin Ratio Adenovirus (PCR) (NotDetected) B. pertussis DNA (PCR) (NotDetected) B.parapertussis DNA PCR (NotDetected) C. pneumoniae DNA (PCR) (NotDetected) Coronavirus OC43 (PCR) (NotDetected) Coronavirus HKU1 (PCR) (NotDetected) Coronavirus 229E (PCR) (NotDetected) SARS-CoV-2 (PCR) (NotDetected) Coronavirus NL63 (PCR) (NotDetected) Human Metapneumovir PCR (NotDetected) Influenza Type A (PCR) (NotDetected) Influenza Type B (PCR) (NotDetected) M. pneumoniae (PCR) (NotDetected) Parainfluenza 1 (PCR) (NotDetected) Parainfluenza 2 (PCR) (NotDetected) Parainfluenza 3 (PCR) (NotDetected) Parainfluenza 4 (PCR) (NotDetected) RSV (PCR) (NotDetected) Entero/Rhino (PCR) (NotDetected) Administered Medications Al Hydrox/Mg Hydrox/Simethicone (Aluminum/Magnesium Susp 30 Ml Udc) 15 ml PO Q4H PRN PRN Reason: Dyspepsia Stop: 09/20/24 17:36 Last Admin: 08/22/24 07:52 Dose: 15 ml Documented By: NEVAEH Amitriptyline HCl (Amitriptyline Hcl 50 Mg Tab) 50 mg PO HS ZACHERY Stop: 09/20/24 20:59 Last Admin: 08/21/24 20:19 Dose: 50 mg Documented By: FABIOLA Amlodipine Besylate (Amlodipine Besylate 5 Mg Tab) 5 mg PO QAM ZACHERY Stop: 09/21/24 08:59 Last Admin: 08/22/24 07:46 Dose: 5 mg Documented By: NEVAEH Calcium Acetate (Calcium Acetate 667 Mg Cap/Tab) 2,001 mg PO TIDM ZACHERY Stop: 09/20/24 19:59 Last Admin: 08/22/24 11:46 Dose: Not Given Documented By: Admin: 08/22/24 07:45 Dose: 2,001 mg Documented By: Admin: 08/21/24 20:48 Dose: 2,001 mg Documented By: FABIOLA Docusate Sodium (Docusate Sodium 100 Mg Cap) 100 mg PO DAILY ZACHERY Stop: 09/21/24 08:59 Last Admin: 08/22/24 07:55 Dose: 100 mg Documented By: NEVAEH Pantoprazole Sodium (Protonix) 40 mg in 10 mls @ 5 mls/min IV BID ZACHERY Stop: 09/20/24 20:59 Last Admin: 08/22/24 07:46 Dose: 5 mls/min Documented By: Admin: 08/21/24 20:17 Dose: 5 mls/min Documented By: FABIOLA Labetalol HCl (Labetalol Hcl 300 Mg Tab) 600 mg PO TID ZACHERY Stop: 09/20/24 20:59 Last Admin: 08/22/24 07:46 Dose: 600 mg Documented By: Admin: 08/21/24 20:19 Dose: 600 mg Documented By: FABIOLA Melatonin (Melatonin 3 Mg Tab) 3 mg PO HS PRN PRN Reason: Sleep Stop: 09/20/24 19:33 Last Admin: 08/22/24 02:51 Dose: 3 mg Documented By: Admin: 08/22/24 00:35 Dose: 3 mg Documented By: FABIOLA Oxycodone HCl (Oxycodone Hcl Ir 5 Mg Tab (Immediate Release)) 5 mg PO Q4H PRN PRN Reason: pain Stop: 09/04/24 17:36 Last Admin: 08/22/24 04:37 Dose: 5 mg Documented By: FABIOLA Polyethylene Glycol (Polyethylene (Miralax) 17 Gm Pack) 17 gm PO DAILY PRN PRN Reason: Constipation Stop: 09/20/24 17:36 Last Admin: 08/22/24 07:52 Dose: 17 gm Documented By: NEVAEH Vitamin D (Cholecalciferol 25 Mcg (1000 Units) Tab) 25 mcg PO QAM ZACHERY Stop: 09/21/24 08:59 Last Admin: 08/22/24 07:46 Dose: 25 mcg Documented By: NEVAEH Discontinued Medications Docusate Sodium (Docusate Sodium 100 Mg Cap) Confirm Administered Dose 100 mg PO .STK-MED ONE Stop: 08/22/24 07:55 Last Admin: 08/22/24 08:00 Dose: Not Given Documented By: NEVAEH Famotidine (Pepcid 20mg Iv Push) 20 mg in 5 mls @ 2.5 mls/min IV NOW STA Stop: 08/21/24 15:54 Last Admin: 08/21/24 19:42 Dose: 2.5 mls/min Documented By: FABIOLA Ioversol (Optiray 320 125ml) 112 ml IV ONCE ONE Stop: 08/21/24 11:00 Last Admin: 08/21/24 10:59 Dose: 112 ml Documented By: MARCELO Melatonin (Melatonin 3 Mg Tab) 6 mg PO ONE ONE Stop: 08/22/24 02:35 Last Admin: 08/22/24 02:51 Dose: 6 mg Documented By: FABIOLA Imaging Data Radiologist's Impression: Chest X-Ray 08/21/24 10:17 XR chest 1V portable CLINICAL HISTORY: fluid overload COMPARISON STUDY: Chest radiograph July 22, 2024. FINDINGS: Lung volumes are normal. Lungs are clear. There is no pneumothorax or pleural effusion. Cardiomegaly is unchanged. Mediastinal contours are normal. There is no evidence for pulmonary edema. IMPRESSION: Stable cardiomegaly. No evidence for pulmonary edema. ACT 112: Negative or not required by law. Electronically signed by: Jose Alberto Addison M.D. 08/21/2024 10:59 AM Discharge Plan Visit Data Chief Complaint: Illness Stated Complaint: GEN. ILLNESS, DIALYSIS PT. ED Provider: Janet Cohen Discharge Problem: Acute respiratory distress, ESRD (end stage renal disease) on dialysis Patient Disposition: Admitted As Inpatient Discharge Instructions Interventions: ED Discharge Assessment Last Done: 08/21/24 17:07
[2024-08-21 11:54] LABS: Albumin Level 4.4 gm/dl (3.4-5.0); Potassium 4.8 mmol/L (3.5-5.1)
[2024-08-21 12:09] LABS: Adenovirus PCR Not Detected (NotDetected); Bordetella parapertussis PCR Not Detected (NotDetected); Bordetella pertussis PCR Not Detected (NotDetected); Chlamydia pneumoniae PCR Not Detected (NotDetected); Coronavirus 229E PCR Not Detected (NotDetected); Coronavirus CoV-2 (COVID19)PCR Not Detected (NotDetected); Coronavirus HKU1 PCR Not Detected (NotDetected); Coronavirus NL63 PCR Not Detected (NotDetected); Coronavirus OC43PCR Not Detected (NotDetected); Human Metapneumovirus PCR Not Detected (NotDetected); Influenza A PCR Not Detected (NotDetected); Influenza B PCR Not Detected (NotDetected); Mycoplasma pneumoniae PCR Not Detected (NotDetected); Parainfluenza Virus 1 PCR Not Detected (NotDetected); Parainfluenza Virus 2 PCR Not Detected (NotDetected); Parainfluenza Virus 3 PCR Not Detected (NotDetected); Parainfluenza Virus 4 PCR Not Detected (NotDetected); Respiratory Syncytial VirusPCR Not Detected (NotDetected); Rhinovirus/Enterovirus PCR Not Detected (NotDetected)
--- NOTE | 2024-08-21 12:32 | Nephrology Consultation ---
Date of Consultation August 21, 2024 Assessment & Plan (1) End-stage renal disease on hemodialysis: (2) Hypertension: (3) Secondary hyperparathyroidism of renal origin: (4) Anemia due to chronic kidney disease: Plan 43-year-old female with ESKD, on hemodialysis Friday, , Friday, admitted to the hospital with N/V, SOB and missed HD. Blood pressure has been well-controlled, electrolyte acceptable. No respiratory distress. -- HD now as she missed HD this morning and 3 KG above EDW, aim for UF 3 L. -- Dose medications for eGFR less than 10 -- Rt arm nephrology precaution Thank you for allowing me to participate in your patient's care. It was a pleasure to see Astrid History of Present Illness Reason for Consultation: ESKD on HD, missed HD, urgent need for HD History of Present Illness Ms. Astrid Gallardo is a 43 year-old female with ESKD attributed to hypertensive arterionephrosclerosis, presented to the hospital admission with nausea vomiting, shortness of breath and missed dialysis. Nephrology consult requested for evaluation and management for urgent dialysis as she missed dialysis today. Electronic medical records were reviewed in detail during patient's visit. Astrid presented to ER this morning with complaint of nausea, vomiting for last 1 day. She also has been noticing some shortness of breath. She was due for dialysis this morning however she was not able to go because of ongoing nausea and vomiting. She was recently admitted to the hospital from 07/23/2024 to 08/01/2024 with somewhat similar symptoms including nausea, vomiting, diarrhea and abdominal pain. Workup at that time including EGD and CTA of abdomen was pretty unremarkable although there was concern for mesenteric artery stenosis but CTA was negative for that. Eventually her abdominal pain improved with trigger point injection in her abdomen. Lab was otherwise acceptable with normal electrolyte. Hb 11. Chest x-ray with no significant pulmonary congestion. Her blood pressure was slightly elevated, she was 3 kg above her dry weight. Has end-stage kidney disease secondary to hypertensive nephrosclerosis, dialyzes TTS at [facility] under the care of Dr. Crawford, on HD since 2012. Has a well functioning right forearm AVF placed by Dr. Sherman. Her HD Rx is 4 hours w/ 180 optiflux, 3K 2.5, Ca 137Na. EDW 108 kg. She is maintained on Micera for anemia as well as maintenance Venofer. Medical history is notable for a history of PUD, GI dysmotility, obesity, fungal esophagitis 2014, and IBS. She follows with gastroenterology as an outpatient. She reports ongoing nausea. Denies significant shortness of breath. Blood pressure fair. Allergies Allergy/AdvReac Type Severity Reaction Status Date / Time pneumococcal 7-valent Allergy Severe Swelling Verified 08/18/24 08:56 conjugate to of [From Prevnar] Lip/Tongue/Throat Home Medications Medication Instructions Recorded Confirmed Type calcium acetate(phosphat bind) 667 0 mg PO TIDM 09/30/18 08/21/24 History mg capsule cinacalcet 30 mg tablet 0 mg PO QAM 08/02/20 08/21/24 History pantoprazole 40 mg tablet,delayed 40 mg PO BID 90 days #180 tabs 11/07/23 08/21/24 Rx release linaclotide 145 mcg capsule 145 mcg PO QPM PRN Constipation 12/02/23 08/21/24 History (Linzess) sumatriptan succinate 6 mg/0.5 mL 6 mg (0.5 mL) subcut UD PRN 12/17/23 08/21/24 Rx subcutaneous pen injector (Imitrex Headache #1 mL STATdose Pen) dicyclomine 10 mg capsule 10 mg PO TID PRN abdominal pain 06/28/24 08/21/24 Rx #30 caps amitriptyline 50 mg tablet 50 mg PO HS 07/22/24 08/21/24 History cholecalciferol (vitamin D3) 25 25 mcg PO QAM #30 caps 08/01/24 08/21/24 Rx mcg (1,000 unit) capsule labetalol 300 mg tablet 600 mg (2 x 300 mg) PO TID #90 tabs 08/01/24 08/21/24 Rx ondansetron HCl 4 mg tablet 4 mg PO Q6H PRN nausea and 08/01/24 08/21/24 Rx vomiting #30 tabs rizatriptan 10 mg disintegrating 10 mg PO Q2H PRN migraine headache 08/16/24 08/21/24 Rx tablet (Maxalt-ADDRESSING MACHINE OPERATOR) 30 days #9 tabs amlodipine 5 mg tablet 5 mg PO QAM #90 tabs 08/18/24 08/21/24 Rx baclofen 10 mg tablet 10 mg PO TID PRN muscle spasm #30 08/18/24 08/21/24 Rx tabs docusate sodium 100 mg capsule 100 mg PO DAILY #90 caps 08/19/24 08/21/24 Rx (Colace) gabapentin 100 mg capsule 100 mg PO UD 08/21/24 08/21/24 History oxycodone 5 mg tablet 0 mg PO Q4H PRN pain 08/21/24 08/21/24 History Patient History Medical History (Updated 08/18/24 @ 09:19 by MICHAELA Hutson III) Superior mesenteric artery stenosis Demyelinating disease End stage renal disease on dialysis Abnormal CT of brain Recurrent UTI (urinary tract infection) currently on Cefdinir Bilateral carpal tunnel syndrome Hx of migraines Iron deficiency anemia Hyperlipidemia History of asthma PUD (peptic ulcer disease) Hx of renal calculi Lumbar radiculopathy Morbid obesity with BMI of 45.0-49.9, adult Hypertension History of gastric ulcer A-V fistula right arm Surgical History H/O tubal ligation History of abdominoplasty repair skin around scar History of section x4 History of esophagogastroduodenoscopy (EGD) History of wisdom tooth extraction Family History Mother Family history of diabetes mellitus Sister Family history of diabetes mellitus x3 Aunt Heart disease Father Family history of kidney disease Other No family history of adverse response to anesthesia Denies family history of Pancreatic cancer Ovarian cancer Prostate cancer Myocardial infarction Breast cancer Colorectal cancer Uterine cancer Social History Smoking Status: Former smoker Second Hand Exposure: No; Do You Dip or Chew Tobacco: No; Hx Alcohol Use: No Hx Substance Use: Yes Prescribed Medications: Marijuana Last Used Substance Other:: months ago Preferred Language: Zambian Communication Ability: Effective Visual Impairment: No Limitations Hearing Ability: Normal Senior It Architect Required: No Beliefs That Will Affect Care: None marital status: Single Current Living Situation: Family Current Living Situation Comment: 2 children current occupational status: disabled How many Children do You have: 3 Feels Safe at Home: Yes Childhood Exposure to Second-Hand Smoke: No Diet: regular caffeine: Yes during the past year weight has: decreased > 10 lbs Dental Care, Regularly: Yes Physical Activity Frequency: Daily Seatbelt Use: always Sunscreen Use: Yes Assistive Devices: None Review of Systems Review of Systems: Detailed review of system was done and pertinent positives and negatives are mentioned above. Physical Exam Constitutional: WD/WN, vitals as above + ill appearing and + morbidly obese; no acute distress Eyes: + anicteric sclerae Neck: normal visual inspection Respiratory: no respiratory distress Auscultation: lungs clear to auscultation bilaterally Cardiovascular: RRR, no murmur, no edema Extremities: + AV fistula (Rt RC AVF with thrill and bruit, small aneurysm. ) Gastrointestinal (Abdomen): Inspection/Auscultation: abdomen normal to inspection Percussion/Palpation: abdomen soft; abdomen nontender, no guarding and abdomen not rigid Musculoskeletal: Extremities: extremities normal to inspection Skin: no rashes, warm and dry Neurologic: no focal motor deficits and not confused Psychiatric: Orientation: alert and oriented x 3 Affect: euthymic affect Results & Data Vital Signs (Past 12 Hours) Vital Signs Temp Pulse Pulse Resp BP BP Pulse Ox 08/21/24 11:17 79 16 145/113 H 100 08/21/24 10:10 89 L 08/21/24 09:40 36.9 C 68 22 138/96 94 08/21/24 09:39 72 17 138/96 96 08/21/24 09:38 138/96 08/21/24 09:36 94 H O2 Del Method 08/21/24 11:17 Room Air 08/21/24 10:10 Room Air 08/21/24 09:40 Room Air 08/21/24 09:39 08/21/24 09:38 08/21/24 09:36 PG Care Time/CCT Total # of Minutes Spent Total Time Spent with Patient: Total time spent is greater than 50% in coordination of care (as documented) at patient's floor/unit and/or counseling patient: Coding Level of Care Code 28371 INT INP/OBS CARE 3/75MIN Diagnoses End-stage renal disease on hemodialysis N18.6; Z99.2 Hypertension I10 Hypertension type: unspecified Secondary hyperparathyroidism of renal origin N25.81 Anemia due to chronic kidney disease, on chronic dialysis N18.6; D63.1; Z99.2 Chronic kidney disease stage: on chronic dialysis (2) Hypertension Hypertension type: unspecified Qualified Code(s): I10 - Essential (primary) hypertension (4) Anemia due to chronic kidney disease Chronic kidney disease stage: on chronic dialysis Qualified Code(s): N18.6 - End stage renal disease; D63.1 - Anemia in chronic kidney disease; Z99.2 - Dependence on renal dialysis
--- NOTE | 2024-08-21 12:42 | CT Scan Report ---
CT ANGIOGRAPHY OF THE CHEST, PULMONARY EMBOLUS PROTOCOL CLINICAL HISTORY: Heart palpitations. Evaluate for pulmonary embolus. COMPARISON STUDY: Chest radiograph performed earlier today TECHNIQUE: Following IV administration of 70 mL of Optiray, helical axial images of the chest were ob tained utilizing the pulmonary embolus protocol. Maximal intensity projections and sagittal and charisma nal reformats were viewed on an independent 3D workstation. IV contrast was administered without com plication. Automated exposure control was utilized for the study. A dose lowering technique was uti lized adhering to the principles of ALARA. CT DOSE: 823.68 mGy.cm FINDINGS: No pulmonary emboli are identified although this exam is moderately compromised by respira tory motion and suboptimal opacification. Evaluation of the lower lobe pulmonary arteries is near non diagnostic. The heart is moderately enlarged. There is no thoracic aortic dissection. No pericardial effusion is present. There is no thoracic lymphadenopathy. No pneumothorax or pleural effusion is pre sent. There is no consolidation to suggest pneumonia. Lungs are suboptimally assessed due to respirat ory motion. There is apparent gastric fold thickening. Innumerable cysts are incidentally noted withi n visualized portions of the kidneys. IMPRESSION: 1. No pulmonary emboli identified although exam significantly compromised from a technical standpoint , as described above. 2. No consolidation to suggest pneumonia. 3. Cardiomegaly. 4. Apparent gastric fold thickening. This is nonspecific and could be due to underdistention however gastritis is also within the differential. ACT 112: Negative or not required by law. Electronically signed by: Jose Alberto Addison M.D. 08/21/2024 12:39 PM
--- NOTE | 2024-08-21 16:16 | History & Physical Report ---
Date of Service August 21, 2024 Assessment & Plan (1) Delirium: Plan: to her confusion this appears to be consistent with a deliriumshe is nonfocal on neuroexam, and nothing appears to be a ELECTRIC MOTOR ASSEMBLER source. In terms of causes of her deliriumfrom a metabolic standpoint she does have mild hypercapnia on a VBG (will check an ABG and follow-upmay need BiPAP if she is hypercapnicand then obviously a secondary workup as to why), from an infectious/metabolic standpoint given that her friend and her children were seeing her with GI bleedingit is certainly possible that physiologic stress/pain from peptic ulcer disease, and/or physiologic stress if the bleeding was brought on by a foodborne enteritis certainly that could be culprit (initiated Protonix/Pepcid, check stool PCR, follow serial exams, low threshold for imagingbut with nothing appearing surgical on exam no clear indication for imaging at this time), and while I doubt it is toxic from medicationsshe is on baclofen which at times has been known to precipitate delirium in dialysis patientsright now it is ordered as as needed, would continue to follow her closely. Serial exams, serial labs. Nothing appears to be "typical" infectionsbut given that she is unable to give much of a detailed history, also checking CRP and procalcitonin to gauge severity of inflammation given that she had not missed dialysis and her labs do not show significant metabolic disarray, I doubt it is metabolic from uremia/dialysis related considerations (2) GIB (gastrointestinal bleeding): Plan: hemodynamically stable, repeating hemoglobin now given is higher than her baseline this morningsuggesting some degree of volume contraction is possible; Pepcid and Protonix for now, serial exams, follow for any ongoing bleedingno urgent need for endoscopic workup, but obviously need to follow closely. Does not appear to be on anticoagulants or antiplatelets. Obviously we will be holding on any pharmacologic DVT prophylaxis (3) Hypercarbia: Plan: mild on VBGbut given her delirium and diminished air entrychecking an ABG formally. If she is hypercapnicmanage in the short-term with BiPAP, secondary workup would be necessarywith something along the lines of OHS/ALEXIA being the leading differential (4) Anemia due to chronic kidney disease: Plan: follow with GI bleedingcurrent levels are higher than her normal baseline (5) Dialysis patient: Plan: nephrology consulteddialysis going on whenever I saw her (6) DVT prophylaxis: Plan: SCDs given her GI bleeding (7) Trigger point of abdomen: Plan: improved with trigger point injections a few weeks agomostly mentioning this current on her chart given that if she is less delirious but has upper GI symptoms with nausea, while obviously we would want to pursue with EGD given the GI bleeding, it is also possible that trigger points would be at play Plan unable to discern CODE STATUS from her, no documentation with her, for now full code History of Present Illness Chief Complaint: Shortness of breath, confusion Primary Care Provider: Jacques Zhang, III, OPTICAL BRIGHTENER MAKER HELPER patient is a very pleasant 43-year-old female known to me briefly from previous admission. She is unable to offer much of any HPI herself. She is a bit scared and confusedwondering where she is and is fairly tearful. This is absolutely not herself from prior, and her dialysis nurse who has known her well from before is also noting that she is definitely not herself. In terms of any meaningful HPIbecause she is fairly confused and does not know where she is she is not really able to offer any spontaneous HPI. She vaguely answers yes a little to nearly all questionsnoting that she hurts a little in her head, her chest, her abdomen, maybe her legs. She also answers this way somewhat apologetic Li seeming to be aware that she is not able to offer much of an HPI. She denies significant shortness of breath but maybe feels a little short of breath as well. As I am leaving the bedside, she asks if I mentions that she was peeing bloodI note that I did not say that but I wondered if she had noticed she was peeing bloodshe denied hematuria, but did note having some degree of bloody bowel movement, although she is really unable to quantify when/where/how much I then reached out to her hotel casino floorperson: Carolyne Valentine [phone] - She noted that she saw the patient this morning, and between that and talking to the patient's children she was able to put together a more coherent history. Patient's children noted that last night she started appearing a bit sick and actually vomiting some blood; somewhere between last night and this morning was wandering the house seeming a bit confused and still had some vomiting of blood. Whenever her friend saw her today she noted she was somewhat confused as welldid not herself witness hematemesis/hematochezia, but noted that because she was definitely not acting like herself and her children had seen her not acting like herself and vomiting blood she was brought to the ER for further evaluation. Allergies Allergy/AdvReac Type Severity Reaction Status Date / Time pneumococcal 7-valent Allergy Severe Swelling Verified 08/18/24 08:56 conjugate to of [From Prevnar] Lip/Tongue/Throat Home Medications Medication Instructions Recorded Confirmed Type calcium acetate(phosphat bind) 667 0 mg PO TIDM 09/30/18 08/21/24 History mg capsule cinacalcet 30 mg tablet 0 mg PO QAM 08/02/20 08/21/24 History pantoprazole 40 mg tablet,delayed 40 mg PO BID 90 days #180 tabs 11/07/23 08/21/24 Rx release linaclotide 145 mcg capsule 145 mcg PO QPM PRN Constipation 12/02/23 08/21/24 History (Linzess) sumatriptan succinate 6 mg/0.5 mL 6 mg (0.5 mL) subcut UD PRN 12/17/23 08/21/24 Rx subcutaneous pen injector (Imitrex Headache #1 mL STATdose Pen) dicyclomine 10 mg capsule 10 mg PO TID PRN abdominal pain 06/28/24 08/21/24 Rx #30 caps amitriptyline 50 mg tablet 50 mg PO HS 07/22/24 08/21/24 History cholecalciferol (vitamin D3) 25 25 mcg PO QAM #30 caps 08/01/24 08/21/24 Rx mcg (1,000 unit) capsule labetalol 300 mg tablet 600 mg (2 x 300 mg) PO TID #90 tabs 08/01/24 08/21/24 Rx ondansetron HCl 4 mg tablet 4 mg PO Q6H PRN nausea and 08/01/24 08/21/24 Rx vomiting #30 tabs rizatriptan 10 mg disintegrating 10 mg PO Q2H PRN migraine headache 08/16/24 08/21/24 Rx tablet (Maxalt-WEIGHBRIDGE OPERATOR) 30 days #9 tabs amlodipine 5 mg tablet 5 mg PO QAM #90 tabs 08/18/24 08/21/24 Rx baclofen 10 mg tablet 10 mg PO TID PRN muscle spasm #30 08/18/24 08/21/24 Rx tabs docusate sodium 100 mg capsule 100 mg PO DAILY #90 caps 08/19/24 08/21/24 Rx (Colace) gabapentin 100 mg capsule 100 mg PO UD 08/21/24 08/21/24 History oxycodone 5 mg tablet 0 mg PO Q4H PRN pain 08/21/24 08/21/24 History Past Med/Surg History Problem List (Updated 08/21/24 @ 16:12 by Stan Morrow DO) DVT prophylaxis Hypercarbia Delirium Anemia due to chronic kidney disease Trigger point of abdomen Chronic abdominal pain GIB (gastrointestinal bleeding) Dialysis patient (Acute) Hypertension (Acute) Internal hemorrhoids Iron deficiency anemia Complex renal cyst Recurrent infective cystitis Carpal tunnel syndrome on both sides Polyneuropathy Iron deficiency Idiopathic polyneuropathy Liver lesion, left lobe Peptic ulcer disease ESRD (end stage renal disease) on dialysis (Acute) Dysmenorrhea Menorrhagia Myalgia Sensation of pressure in bladder area Migraine Abnormal MRI Balance problem Recurrent urinary tract infection Nausea Intractable nausea and vomiting Left kidney mass (Acute) Hypercholesterolemia (Chronic) Asthma (Chronic) no issues currently Low thyroid stimulating hormone (TSH) level (Chronic) Vitamin D deficiency (Chronic) Secondary hyperparathyroidism of renal origin (Chronic) CKD (chronic kidney disease) requiring chronic dialysis (Chronic) Chronic renal failure (Chronic) Psoriasis (Chronic) Eczema (Chronic) Irritable bowel syndrome with diarrhea (Chronic) GERD (gastroesophageal reflux disease) End-stage renal disease on hemodialysis dialysis tue/thur/sat--follows with Dr. Crawford Chronic back pain (Chronic) Depression with anxiety (Chronic) LVH (left ventricular hypertrophy) (Chronic) Renal cyst (Chronic) Medical History Superior mesenteric artery stenosis Demyelinating disease End stage renal disease on dialysis Abnormal CT of brain Recurrent UTI (urinary tract infection) currently on Cefdinir Bilateral carpal tunnel syndrome Hx of migraines Iron deficiency anemia Hyperlipidemia History of asthma PUD (peptic ulcer disease) Hx of renal calculi Lumbar radiculopathy Morbid obesity with BMI of 45.0-49.9, adult Hypertension History of gastric ulcer A-V fistula right arm Surgical History H/O tubal ligation History of abdominoplasty repair skin around scar History of section x4 History of esophagogastroduodenoscopy (EGD) History of wisdom tooth extraction Family History Mother Family history of diabetes mellitus Sister Family history of diabetes mellitus x3 Aunt Heart disease Father Family history of kidney disease Other No family history of adverse response to anesthesia Denies family history of Pancreatic cancer Ovarian cancer Prostate cancer Myocardial infarction Breast cancer Colorectal cancer Uterine cancer Social History Smoking Status: Former smoker Second Hand Exposure: No; Do You Dip or Chew Tobacco: No; Hx Alcohol Use: No Hx Substance Use: Yes Prescribed Medications: Marijuana Last Used Substance Other:: months ago Preferred Language: Guyanese Communication Ability: Effective Visual Impairment: No Limitations Hearing Ability: Normal Visual Merchandising Specialist Required: No Beliefs That Will Affect Care: None marital status: Single Current Living Situation: Family Current Living Situation Comment: 2 children current occupational status: disabled How many Children do You have: 3 Feels Safe at Home: Yes Childhood Exposure to Second-Hand Smoke: No Diet: regular caffeine: Yes during the past year weight has: decreased > 10 lbs Dental Care, Regularly: Yes Physical Activity Frequency: Daily Seatbelt Use: always Sunscreen Use: Yes Assistive Devices: None Review of Systems Review of Systems: Unobtainable due to cognitive status Physical Exam Physical Exam: In general she is awake, tearful, moving around in the bed appearing mildly uncomfortable but with no obvious source. HEENT normocephalic atraumatic mucous membranes moist. Cardio is somewhat distant but regular no rubs murmurs or gallops. Lungs are diminished bilaterally but no rales rhonchi or wheezes good effort. Abdomen is soft, no guarding rebound or rigidity, but palpation on her lower abdomen seems to elicit rather significant tendernessnot really based on her immediate reaction but about 5-10 seconds later with her holding her abdomen and crying a bit more than she was prior to abdominal exam. Extremities are without cyanosis or clubbing, trace bilateral lower extremity edema, no calf tenderness. Skin without rashes pallor or icterus. Neuro is a somewhat difficult exam due to her inability to cooperateinterestingly she will move all of her extremities spontaneously and look around the room spontaneously, but whenever I asked her to squeeze my hands or open her eyes she tearfully notes "I cannot"that said, I am able to elicit that it does not appear that there are any deficits focally; limited exam but cranial nerves II through XII appear to be grossly intact and gross motor and sensory appear to be equal and intact bilateral upper and lower extremities. Mental status shows her to be conversive but confused, fairly tearful and moderately anxious CBC with mild leukocytosis and hemoglobin of 11, VBG with pH of 7.34, pCO2 of 53, other than a creatinine of 10, metabolic panel without remarkable findings, respiratory BioFire is negative, chest CT shows no pulmonary emboli, no pericardial effusion, no pneumothorax or pleural effusion, no consolidation, reasonably negative study overall, gastric fold thickening that is either nonspecific or gastritis related EKG NSR no ischemic changes Results & Data Results & Data Vital Signs (Past 12 Hours) Vital Signs Temp Pulse Pulse Resp BP BP Pulse Ox 08/21/24 13:00 80 16 121/95 100 08/21/24 11:17 79 16 145/113 H 100 08/21/24 10:10 89 L 08/21/24 09:40 98.4 F 68 22 138/96 94 08/21/24 09:39 72 17 138/96 96 08/21/24 09:38 138/96 08/21/24 09:36 94 H O2 Del Method O2 Flow Rate 08/21/24 13:00 Nasal Cannula 2 08/21/24 11:17 Room Air 08/21/24 10:10 Room Air 08/21/24 09:40 Room Air 08/21/24 09:39 08/21/24 09:38 08/21/24 09:36 PG Care Time/CCT Total # of Minutes Spent Total Time Spent with Patient: Total time spent is greater than 50% in coordination of care (as documented) at patient's floor/unit and/or counseling patient: Coding Level of Care Code 47557 INT INP/OBS CARE 3/75MIN Diagnoses Delirium R41.0 Gastrointestinal hemorrhage, unspecified gastrointestinal hemorrhage type K92.2 GI bleed type/associated pathology: unspecified gastrointestinal hemor rhage type Hypercarbia R06.89 Anemia due to chronic kidney disease, on chronic dialysis N18.6; D63.1; Z99.2 Chronic kidney disease stage: on chronic dialysis Dialysis patient Z99.2 DVT prophylaxis Z29.9 Trigger point of abdomen R10.9 (2) GIB (gastrointestinal bleeding) GI bleed type/associated pathology: unspecified gastrointestinal hemorrhage type Qualified Code(s): K92.2 - Gastrointestinal hemorrhage, unspecified (4) Anemia due to chronic kidney disease Chronic kidney disease stage: on chronic dialysis Qualified Code(s): N18.6 - End stage renal disease; D63.1 - Anemia in chronic kidney disease; Z99.2 - Dependence on renal dialysis
[2024-08-21 16:18] LABS: C Reactive Protein 1.59 mg/dl (0-0.5)
[2024-08-21] MEDS ORDERED: ONDANSETRON INJ 2 MG/ML 2 ML VIAL IV PRN (17:37)
[2024-08-21] MEDS ORDERED: ACETAMINOPHEN 325 MG TAB PO PRN (17:37)
[2024-08-21] MEDS ORDERED: MAGNESIUM HYDROXIDE SUSP 30 ML UDC PO PRN (17:37)
[2024-08-21] MEDS ORDERED: LINACLOTIDE 145 MCG CAPSULE PO PRN (17:37)
[2024-08-21] MEDS ORDERED: BACLOFEN 10 MG TAB PO PRN (17:37)
[2024-08-21] MEDS ORDERED: CALCIUM ACETATE 667 MG CAP/TAB PO SCH (17:37)
[2024-08-21] MEDS ORDERED: NON-FORMULARY MEDICATION (Rizatriptan [Maxalt-Mlt] 10 mg tablet,disintegrating) PO PRN (17:37)
[2024-08-21] MEDS ORDERED: DICYCLOMINE HCL 10 MG CAP PO PRN (17:37)
[2024-08-21] MEDS ORDERED: oxyCODONE HCL IR 5 MG TAB (IMMEDIATE RELEASE) PO PRN (17:37)
[2024-08-21] MEDS ORDERED: ONDANSETRON 4 MG OD TAB PO PRN (17:56)
[2024-08-21 19:12] LABS: Basophils # (auto) 0.05 K/uL (0.00-0.20); Basophils % (auto) 0.4 %; Eosinophils # (auto) 0.08 K/uL (0.00-0.50); Eosinophils % (auto) 0.7 %; Hematocrit (blood only) 35.1 % (37.0-47.0); Hemoglobin 11.2 g/dl (12.0-16.0); Immature Granulocytes # (auto) 0.07 K/uL (0.01-0.20); Immature Granulocytes % (auto) 0.6 %; Lymphocytes # (auto) 1.03 K/uL (1.20-3.40); Lymphocytes % (auto) 8.4 %; Mean Corpuscular Hemoglobin 30.6 pg (25.0-34.0); Mean Corpuscular Hgb Conc 31.9 g/dL (32.0-36.0); Mean Corpuscular Volume 95.9 fL (80.0-100.0); Mean Platelet Volume 9.4 fL (9.4-12.4); Monocytes % (auto) 6.5 %; Neutrophils # (auto) 10.27 K/uL (1.40-6.50); Neutrophils % (auto) 83.4 %; Nucleated RBC # (auto) 0.02 K/uL (0.00-0.12); Nucleated RBC % (auto) 0.2 %; Platelet Count 239 K/uL (130-400); RDW Coefficient of Variation 17.4 % (11.5-14.5); RDW Standard Deviation 59.9 fL (36.4-46.3); Red Blood Count 3.66 M/uL (4.20-5.40)
[2024-08-21 19:25] LABS: iSTAT Arterial Blood Gas HCO3 31 meg/L (19-24); iSTAT Arterial Blood Gas pCO2 32 mmHg (35-46); iSTAT Arterial Blood Gas pH 7.59 (7.35-7.45); iSTAT Arterial Blood Gas pO2 154 mmHg (80-95); iSTAT Carbon Dioxide 32 mmol/L (24-31); iSTAT Hematocrit 34 % (37-47); iSTAT Hemoglobin 11.6 g/dl (12.0-16.0); iSTAT Potassium 3.7 mmol/L (3.3-5.0); iSTAT Sodium 134 mmol/L (135-144)
[2024-08-21] MEDS: FAMOTIDINE 20MG IV PUSH 20 MG/5 ML SYR IV STA (19:42)
[2024-08-21] MEDS: PANTOprazole 40 MG/10 ML SYR IV SCH (20:17)
[2024-08-21] MEDS: AMITRIPTYLINE HCL 50 MG TAB PO SCH (20:19)
[2024-08-21] MEDS: LABETALOL HCL 300 MG TAB PO SCH (20:19)
[2024-08-21] MEDS: CALCIUM ACETATE 667 MG CAP/TAB PO SCH (20:48)
[2024-08-21] MEDS ORDERED: PANTOprazole 40 MG TAB PO SCH (21:00)
--- NOTE | 2024-08-21 22:46 | Communication Note ---
Date of Service: August 21, 2024 Received message from nursing that patient is still very delirious. Head CT without contrast was performed and was negative. Will hold off on contrast imaging as patient is a dialysis patient. Will get UA. No labs were ordered for the a.m. Added CBC, CMP, ammonium, magnesium, and CMP to morning labs.
--- NOTE | 2024-08-21 22:56 | CT Scan Report ---
Exam(s): CT HEAD Without Contrast EXAM: CT Head Without Intravenous Contrast CLINICAL HISTORY: Reason for exam: neuro deficit. TECHNIQUE: Axial computed tomography images of the head/brain without intravenous contrast. CTDI is 37.85 mGy and DLP is 703.85 mGy-cm. Automated exposure control was utilized for the study. A dose lowering technique was utilized adhering to the principles of ALARA. COMPARISON: 02/26/2024 FINDINGS: Brain: No hemorrhage, extra-axial fluid collection, mass effect, or edema. Ventricles: Unremarkable. Bones/joints: Unremarkable. No fracture. Soft tissues: Unremarkable. Sinuses: No acute sinusitis. Mastoid air cells: Unremarkable as visualized. IMPRESSION: No acute intracranial abnormality. Electronically signed by: Luiz Cabello MD 08/21/24 22:55 PM
[2024-08-22] MEDS: MELATONIN 3 MG TAB PO PRN (00:35)
[2024-08-22] MEDS: MELATONIN 3 MG TAB PO ONE (02:51)
[2024-08-22] MEDS: oxyCODONE HCL IR 5 MG TAB (IMMEDIATE RELEASE) PO PRN (04:37)
[2024-08-22 06:15] LABS: Basophils # (auto) 0.04 K/uL (0.00-0.20); Basophils % (auto) 0.5 %; Eosinophils # (auto) 0.13 K/uL (0.00-0.50); Eosinophils % (auto) 1.6 %; Hemoglobin 9.7 g/dl (12.0-16.0); Immature Granulocytes # (auto) 0.05 K/uL (0.01-0.20); Immature Granulocytes % (auto) 0.6 %; Lymphocytes # (auto) 1.39 K/uL (1.20-3.40); Lymphocytes % (auto) 17.1 %; Mean Corpuscular Hgb Conc 32.3 g/dL (32.0-36.0); Mean Corpuscular Volume 95.8 fL (80.0-100.0); Mean Platelet Volume 9.7 fL (9.4-12.4); Monocytes # (auto) 0.62 K/uL (0.11-0.59); Monocytes % (auto) 7.6 %; Neutrophils # (auto) 5.88 K/uL (1.40-6.50); Neutrophils % (auto) 72.6 %; Platelet Count 188 K/uL (130-400); RDW Coefficient of Variation 17.3 % (11.5-14.5); RDW Standard Deviation 60.4 fL (36.4-46.3); Red Blood Count 3.13 M/uL (4.20-5.40); White Blood Count 8.11 K/ul (4.8-10.8)
[2024-08-22 06:29] LABS: Albumin Globulin Ratio 1.2 (0.9-2); Albumin Level 3.8 gm/dl (3.4-5.0); BUN Creatinine Ratio 3.6 (10-20); Bilirubin,Total 0.5 mg/dl (0.2-1.0); C Reactive Protein 2.94 mg/dl (0-0.5); Calcium 9.6 mg/dl (8.6-10.3); Creatinine Clr Calc Pharmacy 14.8 ml/min; Globulin 3.3 gm/dl (2.5-4.0); Magnesium 1.8 mg/dl (1.7-2.4); Potassium 4.2 mmol/L (3.5-5.1); Total Protein 7.1 gm/dl (6.0-8.3)
[2024-08-22] MEDS: CHOLECALCIFEROL 25 MCG (1000 UNITS) TAB PO SCH (07:46)
[2024-08-22] MEDS: amLODIPine BESYLATE 5 MG TAB PO SCH (07:46)
[2024-08-22] MEDS: ALUMINUM/MAGNESIUM SUSP 30 ML UDC PO PRN (07:52)
[2024-08-22] MEDS: POLYETHYLENE (MIRALAX) 17 GM PACK PO PRN (07:52)
[2024-08-22] MEDS: DOCUSATE SODIUM 100 MG CAP PO SCH (07:55)
[2024-08-22] MEDS: DOCUSATE SODIUM 100 MG CAP PO ONE (08:00)
--- NOTE | 2024-08-22 08:42 | Hospitalist Progress Note ---
Date of Service August 22, 2024 Assessment & Plan (1) Delirium: (2) GIB (gastrointestinal bleeding): (3) Hypercarbia: (4) Anemia due to chronic kidney disease: (5) Dialysis patient: (6) DVT prophylaxis: (7) Trigger point of abdomen: Plan AMS, Delirium: -Unclear etiology, overall partially improved though not yet back to baseline as described by primary contact - patient was mildly hypercapnic on admission, follow up ABG with elevated base excess (suspect secondary to dialysis) - consider repeat blood gas if demonstrating regression in cognition. -Low suspicion for infectious cause - patient remains afebrile, WBC count WNL. Procal elevated on admission (33.8), again suspect this is more so a function of ESRD. UA pending collection, though this has thus far not been feasible due to baseline oliguria. - On review of most recent PCP note, patient was just started on Baclofen earlier this week. Patient is also a routine cannabis user, ?whether this interaction is exacerbating the adverse [employer] effects of Baclofen - If so, would expect mentation to clear as medication clears (clearance likely blunted 2/2 poor kidney function). - Recommend remaining inpatient for continued observation, will downgrade to med-surg but keep in same room if possible to reduce agitation Anemia of chronic disease: - AM Hgb 11.2 -> 9.7, minimally concerned for significant blood loss as baseline Hgb ~9 - Continue to monitor for stability, though also reassured by GI work up that was done during recent admission when patient had overlapping sx, EGD without identification of an active bleed - Given that GI bleed not entirely ruled out and anticipation of discharge in AM, will defer chemical VTE ppx. Consider starting if GI bleed effectively ruled out or if longer admission anticipated. ESRD on Dialysis: - Dialysis T/Th/Sat - Nephrology consulted for management of dialysis needs FEN/GI: renal diet VTE ppx: SCDs Admission and Anticipated Discharge Date Admission Date: August 21, 2024 Supervising Physician Co-Signing Physician Notes Attending Physician Supervision Note: I independently interviewed and examined the patient and verified the paul history and physical, reviewed labs and image studies and agree with findings and care plan noted above. Subjective Patient oriented to self and date, appears more alert today compared to what was documented on admission. Demonstrates some degree of paranoia/suspicion towards hospital staff, also displays tangential speech States that she still produces a small amount of urine, endorses dysuria x2-3 days Also reports overnight nausea, vomiting (non-bloody), now resolved. Has been having intermittent BRBPR, though this is chronic 2/2 hemorrhoids. Denies recent illness, denies fevers/chills, chest pain, shortness of breath. Review of Systems Review of Systems: as per HPI Physical Exam Constitutional: WD/WN, vitals as above Respiratory: normal respiratory effort; no respiratory distress and no labored breathing Skin: no rashes, warm and dry Neurologic: awake Speech / Cognition: + abnormal cognition Motor/Sensory: normal movement +tangential speech Psychiatric: Orientation: oriented to person and oriented to time Results & Data Results & Data Vital Signs (Past 12 Hours) Vital Signs Temp Pulse Pulse Resp BP Pulse Ox O2 Del Method 08/22/24 07:50 36.9 C 76 18 176/97 H 96 Room Air 08/22/24 07:22 85 08/22/24 03:32 37.4 C 59 L 18 162/94 H 91 Room Air 08/21/24 22:57 37.1 C 75 18 152/95 H 94 Room Air 08/21/24 21:29 85 Resident Activity Tracking Resident Involvement: Resident Care Provided Care Provided: Adult Hospital Medicine (2) GIB (gastrointestinal bleeding) GI bleed type/associated pathology: unspecified gastrointestinal hemorrhage type Qualified Code(s): K92.2 - Gastrointestinal hemorrhage, unspecified (4) Anemia due to chronic kidney disease Chronic kidney disease stage: on chronic dialysis Qualified Code(s): N18.6 - End stage renal disease; D63.1 - Anemia in chronic kidney disease; Z99.2 - Dependence on renal dialysis
[2024-08-22] MEDS ORDERED: CINACALCET HCL 30 MG TAB PO SCH (09:00)
--- NOTE | 2024-08-22 10:44 | Nephrology Progress Note ---
Date of Service August 22, 2024 Assessment & Plan (1) End-stage renal disease on hemodialysis: (2) Hypertension: (3) Secondary hyperparathyroidism of renal origin: (4) Anemia due to chronic kidney disease: Plan 43-year-old female with ESKD, on hemodialysis Friday, , Friday, admitted to the hospital with N/V, SOB and missed HD. Blood pressure has been well-controlled, electrolyte acceptable. No respiratory distress. Had dialysis yesterday, had 3 L UF, tolerated well. -- Waiting for urinalysis to see high that she has UTI that can explain an episode of delirium although she is asymptomatic. -- Dose medications for eGFR less than 10 -- Rt arm nephrology precaution Admission and Anticipated Discharge Date Admission Date: August 21, 2024 Subjective Astrid was seen this morning, she has been otherwise feeling well, awake, alert, not confused. Did have some concern for delirium yesterday, workup including CT head unremarkable. She denied any dysuria, hematuria does not make much urine. Reports mentating normal this morning. Had dialysis yesterday, uneventful. Blood pressure has been variable. Review of Systems Review of Systems: Detailed review of system was done and pertinent positives and negatives are mentioned above. Physical Exam Constitutional: WD/WN, vitals as above + morbidly obese; no acute distress Eyes: + anicteric sclerae Neck: normal visual inspection Respiratory: no respiratory distress Auscultation: lungs clear to auscultation bilaterally Cardiovascular: RRR, no murmur, no edema Extremities: + AV fistula (Rt RC AVF with thrill and bruit, small aneurysm. ) Musculoskeletal: Extremities: extremities normal to inspection Skin: no rashes, warm and dry Neurologic: no focal motor deficits and not confused Psychiatric: Orientation: alert and oriented x 3 Affect: euthymic affect Results & Data Vital Signs (Past 12 Hours) Vital Signs Temp Pulse Pulse Resp BP Pulse Ox O2 Del Method 08/22/24 07:50 36.9 C 76 18 176/97 H 96 Room Air 08/22/24 07:22 85 08/22/24 03:32 37.4 C 59 L 18 162/94 H 91 Room Air 08/21/24 22:57 37.1 C 75 18 152/95 H 94 Room Air PG Care Time/CCT Total # of Minutes Spent Total Time Spent with Patient: Total time spent is greater than 50% in coordination of care (as documented) at patient's floor/unit and/or counseling patient: Coding Level of Care Code 11996 SUB INP/OBS CARE MIN Diagnoses End-stage renal disease on hemodialysis N18.6; Z99.2 Hypertension I10 Hypertension type: unspecified Secondary hyperparathyroidism of renal origin N25.81 Anemia due to chronic kidney disease, on chronic dialysis N18.6; D63.1; Z99.2 Chronic kidney disease stage: on chronic dialysis (2) Hypertension Hypertension type: unspecified Qualified Code(s): I10 - Essential (primary) hypertension (4) Anemia due to chronic kidney disease Chronic kidney disease stage: on chronic dialysis Qualified Code(s): N18.6 - End stage renal disease; D63.1 - Anemia in chronic kidney disease; Z99.2 - Dependence on renal dialysis
--- NOTE | 2024-08-22 23:05 | Electrocardiogram Report ---
Test Reason : Blood Pressure : */* mmHG Vent. Rate : 88 BPM Atrial Rate : 88 BPM P-R Int : 204 ms QRS Dur : 76 ms QT Int : 382 ms P-R-T Axes : 58 -37 49 degrees QTcB Int : 462 ms Normal sinus rhythm Possible Left atrial enlargement Left axis deviation Inferior infarct Anterior infarct Abnormal ECG When compared with ECG of 22-Jul-2024 19:18, No significant change was found Confirmed by Azael Bryson ([id number]) on 08/22/2024 11:04:38 PM Referred By: Confirmed By: Azael Bryson
[2024-08-23 04:55] LABS: Appearance Urine Cloudy (Clear); Specific Gravity Urine 1.026 (1.000-1.030)
[2024-08-23 04:56] LABS: Epithelial Cell Urine >20 /hpf (0-2); RBC Urine >20 /hpf (0-2); WBC Urine >50 /hpf (0-5)
[2024-08-23 04:57] LABS: Bacteria Urine 4+ (None Seen)
[2024-08-23] MEDS ORDERED: cefTRIAXone SODIUM 1,000 MG/50 ML BAG IV SCH (06:15)
[2024-08-23] MEDS: cefTRIAXone SODIUM 2,000 MG/50 ML BAG IV SCH (06:39)
[2024-08-23 06:50] LABS: Hematocrit (blood only) 28.7 % (37.0-47.0); Hemoglobin 9.4 g/dl (12.0-16.0); Mean Corpuscular Hgb Conc 32.8 g/dL (32.0-36.0); Mean Corpuscular Volume 94.7 fL (80.0-100.0); Mean Platelet Volume 9.7 fL (9.4-12.4); Platelet Count 183 K/uL (130-400); RDW Coefficient of Variation 16.7 % (11.5-14.5); RDW Standard Deviation 58.3 fL (36.4-46.3); Red Blood Count 3.03 M/uL (4.20-5.40); White Blood Count 5.93 K/ul (4.8-10.8)
[2024-08-23 07:21] VITALS: RESP 18
[2024-08-23 07:35] LABS: Albumin Globulin Ratio 1.3 (0.9-2); Albumin Level 3.8 gm/dl (3.4-5.0); BUN Creatinine Ratio 3.5 (10-20); Bilirubin,Total 0.4 mg/dl (0.2-1.0); Calcium 9.2 mg/dl (8.6-10.3); Creatinine Clr Calc Pharmacy 9.8 ml/min; Globulin 2.9 gm/dl (2.5-4.0); Potassium 3.9 mmol/L (3.5-5.1); Total Protein 6.7 gm/dl (6.0-8.3)
--- NOTE | 2024-08-23 08:30 | Nephrology Progress Note ---
Date of Service August 23, 2024 Assessment & Plan (1) End-stage renal disease on hemodialysis: (2) Hypertension: (3) Secondary hyperparathyroidism of renal origin: (4) Anemia due to chronic kidney disease: Plan 43-year-old female with ESKD, on hemodialysis Friday, , Friday, admitted to the hospital with N/V, SOB and missed HD. Blood pressure has been well-controlled, electrolyte acceptable. No respiratory distress. -- on Ceftriaxone -- Dose medications for eGFR less than 10 -- Rt arm nephrology precaution Admission and Anticipated Discharge Date Admission Date: August 21, 2024 Subjective Astrid was seen this morning, she has been otherwise feeling well, awake, alert, not confused. Denied any dysuria, hematuria does not make much urine but Urinalysis showing UTI, started on Ceftriaxone. Blood pressure has been variable. Review of Systems Review of Systems: Detailed review of system was done and pertinent positives and negatives are mentioned above. Physical Exam Constitutional: WD/WN, vitals as above + morbidly obese; no acute distress Eyes: + anicteric sclerae Respiratory: no respiratory distress Auscultation: lungs clear to auscultation bilaterally Cardiovascular: RRR, no murmur, no edema Extremities: + AV fistula (Rt RC AVF with thrill and bruit, small aneurysm. ) Musculoskeletal: Extremities: extremities normal to inspection Skin: no rashes, warm and dry Neurologic: no focal motor deficits and not confused Psychiatric: Orientation: alert and oriented x 3 Affect: euthymic affect Results & Data Vital Signs (Past 12 Hours) Vital Signs Temp Pulse Resp BP Pulse Ox O2 Del Method 08/23/24 07:19 37.2 C 86 18 167/109 H 100 Room Air 08/23/24 03:34 36.8 C 78 16 151/95 H 98 Room Air 08/22/24 22:56 36.8 C 73 18 156/96 H 98 Room Air PG Care Time/CCT Total # of Minutes Spent Total Time Spent with Patient: Total time spent is greater than 50% in coordination of care (as documented) at patient's floor/unit and/or counseling patient: Coding Level of Care Code 43493 SUB INP/OBS CARE 2/35MIN Diagnoses End-stage renal disease on hemodialysis N18.6; Z99.2 Hypertension I10 Hypertension type: unspecified Secondary hyperparathyroidism of renal origin N25.81 Anemia due to chronic kidney disease, on chronic dialysis N18.6; D63.1; Z99.2 Chronic kidney disease stage: on chronic dialysis (2) Hypertension Hypertension type: unspecified Qualified Code(s): I10 - Essential (primary) hypertension (4) Anemia due to chronic kidney disease Chronic kidney disease stage: on chronic dialysis Qualified Code(s): N18.6 - End stage renal disease; D63.1 - Anemia in chronic kidney disease; Z99.2 - Dependence on renal dialysis
[2024-08-23 11:20] VITALS: TEMP 98.4; O2SAT 98
[2024-08-23] MEDS: DICLOFENAC SOD 1% GEL 100 GM TUBE EXT SCH (11:43)
[2024-08-23] MEDS: TRIAMCINOLONE ACET 0.025% CR 15 GM TUBE EXT PRN (11:43)
--- NOTE | 2024-08-23 12:09 | Discharge Summary ---
Date of Service August 23, 2024 Admission HPI Per Admitting Provider patient is a very pleasant 43-year-old female known to me briefly from previous admission. She is unable to offer much of any HPI herself. She is a bit scared and confusedwondering where she is and is fairly tearful. This is absolutely not herself from prior, and her dialysis nurse who has known her well from before is also noting that she is definitely not herself. In terms of any meaningful HPIbecause she is fairly confused and does not know where she is she is not really able to offer any spontaneous HPI. She vaguely answers yes a little to nearly all questionsnoting that she hurts a little in her head, her chest, her abdomen, maybe her legs. She also answers this way somewhat apologetic Li seeming to be aware that she is not able to offer much of an HPI. She denies significant shortness of breath but maybe feels a little short of breath as well. As I am leaving the bedside, she asks if I mentions that she was peeing bloodI note that I did not say that but I wondered if she had noticed she was peeing bloodshe denied hematuria, but did note having some degree of bloody bowel movement, although she is really unable to quantify when/where/how much I then reached out to her contact worker: Carolyne Valentine [phone] - She noted that she saw the patient this morning, and between that and talking to the patient's children she was able to put together a more coherent history. Pat caroline's children noted that last night she started appearing a bit sick and actually vomiting some blood; somewhere between last night and this morning was wandering the house seeming a bit confused and still had some vomiting of blood. Whenever her friend saw her today she noted she was somewhat confused as welldid not herself witness hematemesis/hematochezia, but noted that because she was definitely not acting like herself and her children had seen her not acting like herself and vomiting blood she was brought to the ER for further evaluation. Admission Exam Per Admitting Provider In general she is awake, tearful, moving around in the bed appearing mildly uncomfortable but with no obvious source. HEENT normocephalic atraumatic mucous membranes moist. Cardio is somewhat distant but regular no rubs murmurs or gallops. Lungs are diminished bilaterally but no rales rhonchi or wheezes good effort. Abdomen is soft, no guarding rebound or rigidity, but palpation on her lower abdomen seems to elicit rather significant tendernessnot really based on her immediate reaction but about 5-10 seconds later with her holding her abdomen and crying a bit more than she was prior to abdominal exam. Extremities are without cyanosis or clubbing, trace bilateral lower extremity edema, no calf tenderness. Skin without rashes pallor or icterus. Neuro is a somewhat difficult exam due to her inability to cooperateinterestingly she will move all of her extremities spontaneously and look around the room spontaneously, but whenever I asked her to squeeze my hands or open her eyes she tearfully notes "I cannot"that said, I am able to elicit that it does not appear that there are any deficits focally; limited exam but cranial nerves II through XII appear to be grossly intact and gross motor and sensory appear to be equal and intact bilateral upper and lower extremities. Mental status shows her to be conversive but confused, fairly tearful and moderately anxious CBC with mild leukocytosis and hemoglobin of 11, VBG with pH of 7.34, pCO2 of 53, other than a creatinine of 10, metabolic panel without remarkable findings, respiratory BioFire is negative, chest CT shows no pulmonary emboli, no pericardial effusion, no pneumothorax or pleural effusion, no consolidation, reasonably negative study overall, gastric fold thickening that is either nonspecific or gastritis related EKG NSR no ischemic changes Principal Diagnosis Delirium, Medication Adverse Effect, UTI Discharge Exam GENERAL: AAOx3, afebrile, NAD CV: RRR, no r/m/g RESP: CTA bilaterally, normal respiratory effort, no respiratory distress, pastora athing at room air GI: soft, non distended, tender to palpation of suprapubic region with some radiation to bilateral lower quadrants EXTREMITIES: No swelling or calf tenderness bilaterally Discharge Data Allergies Allergy/AdvReac Type Severity Reaction Status Date / Time pneumococcal 7-valent Allergy Severe Swelling Verified 08/18/24 08:56 conjugate to of [From Prevnar] Lip/Tongue/Throat Consultations 08/21/24 13:39 ED Decision to Admit Stat Ordered Studies 08/21/24 10:45 CT for pulmonary embolism PE [CT angio chest PE protocol] Stat 08/21/24 21:30 CT head/brain wo con Stat Hospital Course (1) Delirium: (2) GIB (gastrointestinal bleeding): (3) Hypercarbia: (4) Anemia due to chronic kidney disease: (5) Dialysis patient: (6) DVT prophylaxis: (7) Trigger point of abdomen: Plan AMS, Delirium -Testing and imaging not revealing a clear etiology initially, however, consider likely that hx of ESRD (on HD) with recent start of Baclofen may have lead to initial presentation. Dc Baclofen and today returned to baseline mentation -Infection from acute UTI could have been playing a role as well, but less likely to be main cause U/A suggestive of UTI, U/Cx pending; was on Ceftriaxone and transitioned to Cefpodoxime adjusted for renal function (200 mg PO daily with doses scheduled for days of dialysis to be taken after dialysis therapy is completed). Blood cultures negative WBC count WNL. Procal elevated on admission (33.8), but suspect this is more so a function of ESRD. -Will discharge today given return to baseline cognition. Will continue to hold Baclofen after discharge as well Anemia of chronic disease - AM Hgb stable at ~9 - Spoke with patient with regards to c/o hematochezia that was initially reported at time of admission, and patient states that she does have intermittent bright red blood in her stool; bm painless. No melena reported. Suspect this is possibly hemorrhoidal. Advised to continue with high fiber diet and laxatives prn. Continue outpatient f/u ESRD on Dialysis - Dialysis T//Sat - Due for next dialysis tomorrow, which she will get tomorrow in her usual clinic in [place] Will discharge today back home where she lives with her children. Total Time Total Time Spent Total Time Spent (In Minutes): <30 Discharge Plan Discharge Items Patient Disposition: Home - Self-Care Reason For Visit: SHORTNESS OF BREATH, CONFUSION Discharge Diagnosis: Delirium, acute UTI Activity: Per Instructions section Non-emergency contact: Primary Care Provider Call non-emergency contact if: your symptoms worsen and your temperature is above 101 Follow-up/Referrals: Jacques Zhang III, CRNP [Primary Care Provider] - 09/06/24 4:00 pm (Hospital follow up scheduled September 06 at 4:00) Diet: Dialysis Renal Addtl Attending Provider Instructions: You were admitted to the hospital due to increasing confusion. The cause for this confusion was likely the use of the medication called Baclofen given your history of renal disease, since the medication can stay in your system for longer and cause more side effects. Additionally, your current UTI could also have played a role in your initial confusion. We stopped your Baclofen and continued your dialysis while you were in the hospital, and today you were noted to have returned to your baseline cognition. For this reason, we will be discharging you today. We advise you hold your Baclofen even after discharge to decrease the risk of confusion, please discuss with your primary care provider before adding new medications. To manage your UTI, we will be discharging you with an antibiotic called Cefpodoxime 200 mg. You should take this antibiotic by mouth once daily, and on the days you have Dialysis, please take that day's scheduled dose after your dialysis treatment. A discharge summary will be sent to your primary care physician to ensure continuity of care. Please bring this discharge summary with you to your next office appointment so that your provider can review it at that time. Medications: Your medication list has been reviewed and reconciled upon discharge to ensure accuracy and continuity of care. An updated list of all your medications is included with your hospital discharge paperwork. Please review this list closely, and make note of any changes. Take your medications as instructed; do not skip a dose of your medicines. Make sure all of your doctors know every medicine you are taking (including [id number] medicines, vitamins, and supplements). Call your primary care provider before taking any new medicines (including over- the-counter medicines, vitamins, and supplements), because some of these may interact with your current medications, or may make your symptoms worse. Tell your primary care provider if you cannot afford your medications. CONTACT YOUR PRIMARY CARE PROVIDER if you experience any of the following: Worsening of symptoms Fever, chills, or fatigue Difficulty following your treatment plan, or difficulty taking medications CALL 911 OR GO TO THE EMERGENCY DEPARTMENT if you experience any of the following: Sudden, severe abdominal pain or nausea/vomiting Severe chest pain, or chest pain that radiates (moves) to your jaw or arm Sudden, severe shortness of breath or difficulty breathing Thank you for allowing us to participate in your care. Pending Studies at Discharge: No Stand-Alone Forms: My [employer], Smoking Cessation Medications and DC Order Prescriptions: New cefpodoxime 200 mg tablet 200 mg PO DAILY 7 Days Qty: 7 0RF Rx Instructions: must administer with a meal/food Take one tablet daily; on days scheduled for dialysis, please take that day's scheduled dose after completing dialysis treatment. Continued pantoprazole 40 mg tablet,delayed release (DR/EC) 40 mg PO BID 90 Days Qty: 180 3RF Rx Instructions: TAKE 1 TAB BY MOUTH TWICE DAILY sumatriptan succinate [Imitrex STATdose Pen] 6 mg/0.5 mL pen injector 6 mg subcut UD PRN (Reason: Headache) Qty: 1 3RF Rx Instructions: 6 mg subcut at onset of headache may repeat in 2 hours, max 2 injections per day no more than 2 days per week; dicyclomine 10 mg capsule 10 mg PO TID PRN (Reason: abdominal pain) Qty: 30 0RF rizatriptan [Maxalt-HRIS SPECIALIST] 10 mg tablet,disintegrating 10 mg PO Q2H PRN (Reason: migraine headache) 30 Days Qty: 9 5RF Rx Instructions: do not exceed 3 doses per 24 hrs amlodipine 5 mg tablet 5 mg PO QAM Qty: 90 3RF Rx Instructions: Take 1 tablet by mouth every morning docusate sodium [Colace] 100 mg capsule 100 mg PO DAILY Qty: 90 3RF Rx Instructions: 1 QD for hard stool. reduce if stools become loose. Unable to verify OTC meds at this date/time. calcium acetate(phosphat bind) 667 mg Capsule 0 mg PO TIDM Rx Instructions: Unable to verify med with pharmacy/patient at this date/time. Original Directions: 2001mg by mouth TIDWMEALS cinacalcet 30 mg tablet 0 mg PO QAM Rx Instructions: Unable to verify med with pharmacy/patient at this date/time. Original Directions: 30mg by mouth daily amitriptyline 50 mg tablet 50 mg PO HS labetalol 300 mg Tablet 600 mg PO TID Qty: 90 0RF Rx Instructions: Last filled 08/01/ x15 day supply cholecalciferol (vitamin D3) 25 mcg (1,000 unit) Capsule 25 mcg PO QAM Qty: 30 0RF Rx Instructions: Unable to verify OTC meds at this date/time. ondansetron HCl 4 mg tablet 4 mg PO Q6H PRN (Reason: nausea and vomiting) Qty: 30 0RF Linzess 145 mcg capsule 145 mcg PO QPM PRN (Reason: Constipation) gabapentin 100 mg capsule 100 mg PO UD Rx Instructions: Take 200mg po in the morning, 100mg po in the afternoon, and 100mg po at bedtime. oxycodone 5 mg tablet 0 mg PO Q4H PRN (Reason: pain) Rx Instructions: Unable to verify med with pharmacy/patient at this date/time. Original Directions: 10mg po q4h prn pain Discontinued baclofen 10 mg tablet 10 mg PO TID PRN (Reason: muscle spasm) Qty: 30 0RF Discharge Orders: Discharge Order (Routine); Ordered 08/23/24 Ordered By: Jesusita Brasher Admission Data Admit Date/Time: 08/21/24 15:51 Attending Provider: Stan Morrow Admit Provider: Stan Morrow Primary Care Provider: Jacques Zhang III Other Providers: Stan Morrow Other Interventions: Discharge Summary Assessment (RN) Last Done: 08/23/24 13:46 Supervising Physician Co-Signing Physician Notes I personally examined the patient and verified all paul points of history and exam, discussed case, and agree with decision making with Dr Brasher feeling much more like herself, oriented. Would like to get home. Discussed outpatient pain management follow-up. Vitals noted, in general she is awake and alert pleasant no distress. HEENT normocephalic atraumatic mucous membranes moist. Breathing unlabored no accessory muscle use good effort. Skin shows no rashes no pallor or icterus. Neuro without focal deficits. Deliriumappears to have been due to baclofenstopped. Now oriented, no longer confused. Safe/stable for home. Abdominal paina month ago determined to be due to to abdominal wall trigger points (or at least heavily due to abdominal wall trigger points if pain ended up being multifactorial)improved nicely with trigger point injections. Seems to have a degree of recurrence. Was unable to inject today due to time constraints, but would ask for outpatient pain management follow-up for ongoing injections Resident Activity Tracking Resident Involvement: Resident Care Provided Care Provided: Adult Hospital Medicine
[2024-08-23 13:47] VITALS: BP 121/95; PULSE 80
[2024-08-23] MEDS ORDERED: GABAPENTIN 100 MG CAP PO SCH (16:00)
--- NOTE | 2024-08-23 18:31 | Billing Data ---
Date of Service August 23, 2024 Coding Level of Care Code 89703 IN/OBS DISCH 30 MIN/LESS
== END 2024-08-23 14:12 | disposition home or self-care (01) | DRG 947 ==
LOC: ED 09:24 → 2S 15:51 → SUATTDRO 15:51 → 2S 17:07